=== PATIENT | female | born 1960 | race Hispanic/Latino ===

== ENCOUNTER 2016-08-16 15:24 | Emergency (ER) | payer MEDICAID ==
[2016-08-16 16:09] VITALS: BP 146/76; TEMP 98.9; BMI 49.1
[2016-08-16] MEDS ORDERED: Albuterol-Ipratrop 3 mg / 0.5 (3 ml) UD IH STA ×3 (16:38→16:39)
[2016-08-16] MEDS ORDERED: levoFLOXacin 750 MG TAB PO STA (17:41)
--- NOTE | 2016-08-16 17:45 | ED PDOC ---
Arrival/HPI - General Chief Complaint: Cough, Cold, Congestion Time Seen by Provider: 08/16/16 16:20 Historian: Patient - History of Present Illness Narrative History of Present Illness (Text): 08/16/16 17:41 55-year-old female with a history of smoking COPD and diabetes presents today with cough 4 days. Patient denies fevers or chills. Patient states she's been wheezing and her nebulizer stopped working. Patient states she's been taking Mucinex [id number] with slight improvement. Patient states she has a history of bronchitis regularly. Patient denies chest pain or shortness of breath at present time. Denies abdominal pain no nausea or vomiting. patient states she just needs antibiotics because she has been unable to get rid of the cough with [id number] medications. Past Medical History - Provider Review Nursing Documentation Reviewed: Yes - Travel History Have you recently traveled outside [place] w/in the past 3 mons?: No - Past History Past History: Non-Contributing - Infectious Disease Hx of Infectious Diseases: None - Tetanus Immunization Tetanus Immunization: Unknown - Reproductive Menopause: Yes - Past Medical History Past Medical History: Non-Contributing - Cardiac Hx Cardiac Disorders: Yes Hx Hypertension: Yes - Pulmonary Hx Pneumonia: Yes Other/Comment: smoker 1/2 pack / day - Neurological Hx Neurological Disorder: No - HEENT Hx HEENT Disorder: No - Renal Hx Renal Disorder: No - Endocrine/Metabolic Hx Diabetes Mellitus Type 2: Yes - Hematological/Oncological Hx Blood Disorders: No - Integumentary Hx Dermatological Disorder: No - Musculoskeletal/Rheumatological Hx Falls: No - Gastrointestinal Hx Diverticulitis: Yes Hx Gastroesophageal Reflux: Yes - Genitourinary/Gynecological Hx Incontinence: Yes (stress incontinece) Hx Urinary Tract Infection: Yes - Psychiatric Hx Anxiety: Yes Hx Bipolar Disorder: Yes Hx Depression: Yes Hx Substance Use: No - Past Surgical History Past Surgical History: Non-Contributing - Surgical History Hx Cardiac Catheterization: Yes Other/Comment: Colonoscopy. Endoscopy - Anesthesia Hx Anesthesia: Yes Hx Anesthesia Reactions: No Hx Malignant Hyperthermia: No - Suicidal Assessment Feels Threatened In Home Enviroment: No Family/Social History - Physician Review Nursing Documentation Reviewed: Yes Family/Social History: Unknown Family HX Smoking Status: Heavy Smoker > 10 Cigarettes Daily Hx Alcohol Use: No Hx Substance Use: No Hx Substance Use Treatment: No Allergies/Home Meds Allergies/Adverse Reactions: Allergies No Known Allergies Allergy (Verified 08/16/16 16:13) Home Medications: Home Meds Medication Instructions Recorded Confirmed Simvastatin [Zocor] 40 mg PO DAILY 09/27/11 10/29/15 Ziprasidone Hydrochloride [Geodon] 80 mg PO HS 09/27/11 10/29/15 Atorvastatin [Lipitor] 40 mg PO HS 11/26/14 10/29/15 Diltiazem Hydrochloride [Cardizem 360 mg PO DAILY 01/09/15 10/29/15 Cd] Enalapril Maleate [Enalapril] 10 mg PO DAILY 01/09/15 10/29/15 Review of Systems - Review of Systems Constitutional: absent: Fatigue, Fevers ENT: absent: Sore Throat, Sinus Congestion Respiratory: Cough, Wheezing. absent: SOB Cardiovascular: absent: Chest Pain, Palpitations Gastrointestinal: absent: Abdominal Pain, Nausea, Vomiting Neurological: absent: Headache, Dizziness Physical Exam Vital Signs Reviewed: Yes Vital Signs Temp Pulse Resp BP Pulse Ox 08/16/16 16:04 98.9 F 73 20 146/76 93 L Temperature: Afebrile Blood Pressure: Normal Pulse: Regular Respiratory Rate: Normal Appearance: Positive for: Well-Appearing, Non-Toxic, Comfortable Pain Distress: None Mental Status: Positive for: Alert and Oriented X 3 - Systems Exam Head: Present: Atraumatic Mouth: Present: Moist Mucous Membranes Neck: Present: Normal Range of Motion Respiratory/Chest: Present: Clear to Auscultation, Good Air Exchange, Wheezes ( wheezing bilaterally). No: Respiratory Distress, Accessory Muscle Use, Decreased Breath Sounds, Retracting Cardiovascular: Present: Regular Rate and Rhythm, Normal S1, S2. No: Murmurs Abdomen: No: Tenderness Neurological: Present: GCS=15 Skin: Present: Warm, Dry, Normal Color. No: Rashes Psychiatric: Present: Alert, Oriented x 3 Medical Decision Making ED Course and Treatment: 08/16/16 17:48 Patient is nontoxic well-appearing in no distress. Vital signs are stable. DuoNeb nebs 3 Prednisone by mouth Chest x-ray: No infiltrate or effusion reviewed by Dr. valdivia pt reassessment; pt feeling much better after medications;lungs cta bilaterally ; vitals stable. will d/c home with levaquin; advised f/u with pmd tomorrow. advised immediate return if symptoms worsen,persist or if new symptoms develop. Patient verbalizes understanding of discharge instructions and need for immediate followup. all aspects of this case were discussed the attending of record. IMPRESSION; bronchitis Levaquin daily 7 days Used nebulizer 3 times daily as needed for cough Increase fluids Followup with primary care physician tomorrow Return immediately if symptoms worsen persist or if new symptoms develop - RAD Interpretation Radiology Orders: 08/16/16 16:20 CHEST TWO VIEWS (PA/LAT) [RAD] Stat - Medication Orders Current Medication Orders: Discontinued Medications Albuterol/Ipratropium (Duoneb 3 Mg/0.5 Mg (3 Ml) Ud) 3 ml IH STAT STA Stop: 08/16/16 16:39 Last Admin: 08/16/16 16:40 Dose: 3 ML Albuterol/Ipratropium (Duoneb 3 Mg/0.5 Mg (3 Ml) Ud) 3 ml IH STAT STA Stop: 08/16/16 16:39 Last Admin: 08/16/16 17:08 Dose: 3 ML Albuterol/Ipratropium (Duoneb 3 Mg/0.5 Mg (3 Ml) Ud) 3 ml IH STAT STA Stop: 08/16/16 16:40 Last Admin: 08/16/16 17:19 Dose: 3 ML Disposition/Present on Arrival - Present on Arrival Any Indicators Present on Arrival: No History of DVT/PE: No History of Uncontrolled Diabetes: No Urinary Catheter: No History of Decub. Ulcer: No History Surgical Site Infection Following: None - Disposition Have Diagnosis and Disposition been Completed?: Yes Diagnosis: Bronchitis Disposition: HOME/ ROUTINE Disposition Time: 17:50 Patient Plan: Discharge Patient Problems: Current Active Problems Problem Status Diagnosed Bronchitis Acute Condition: GOOD Discharge Instructions (ExitCare): Acute Bronchitis (ED) Additional Instructions: Levaquin daily 7 days Used nebulizer 3 times daily as needed for cough Increase fluids Followup with primary care physician tomorrow Return immediately if symptoms worsen persist or if new symptoms develop Prescriptions: Albuterol HFA [Ventolin HFA 90 mcg/actuation (8 g)] 2 puff IH [id number] PRN #1 inhaler PRN Reason: Cough Albuterol 0.083% [Albuterol 0.083% Inhal Lauryn (2.5 mg/3 ml) UD] 1 vial IH TID PRN #1 packet PRN Reason: Cough Nebulizer [Compact Compressor Nebulizer] 1 dev XX PRN PRN #1 dev PRN Reason: Cough Levofloxacin [Levaquin] 750 mg PO DAILY #7 tablet predniSONE [predniSONE Tab] 3 tab PO DAILY #12 tab Forms: WORK NOTE
[2016-08-16 18:11] VITALS: PULSE 83; RESP 16; O2SAT 94
--- NOTE | 2016-08-17 09:06 | RAD ---
HISTORY: Cough COMPARISON: 10/03/2015 TECHNIQUE: Chest PA and lateral FINDINGS: LUNGS: The lungs are well inflated and clear. PLEURA: No significant pleural effusion identified. No pneumothorax apparent. CARDIOVASCULAR: Normal. OSSEOUS STRUCTURES: No significant abnormalities. VISUALIZED UPPER ABDOMEN: Normal. OTHER FINDINGS: None. IMPRESSION: No active pulmonary disease.
== END 2016-08-16 18:10 | disposition home or self-care (01) ==
LOC: ED 15:24
DX: J20.9 Acute bronchitis, unspecified (principal); F17.210 Nicotine dependence, cigarettes, uncomplicated

== ENCOUNTER 2016-08-16 22:57 | Emergency (ER) | payer MEDICAID ==
[2016-08-16 22:58] VITALS: BMI 49.1
[2016-08-16 23:16] VITALS: BP 144/80; TEMP 98.6
[2016-08-16] MEDS ORDERED: Sodium Chloride 0.9% 1,000 ML IV STA (23:24)
[2016-08-17 00:02] LABS: ADD MANUAL DIFF? NO
[2016-08-17 00:06] LABS: BASO # 0.01 K/mm3 (0.0-2.0); BASO % 0.1 % (0.0-3.0); EOS % 0.1 % (1.5-5.0); GRAN # 8.15 (1.4-6.5); GRAN % 91.5 % (50.0-68.0); HEMATOCRIT 38.2 % (36.0-48.0); LYMPH # 0.7 (1.2-3.4); LYMPH % 7.3 % (22.0-35.0); MEAN CORPUSCULAR HEMOGLOBIN 30.2 pg (25.0-35.0); MEAN CORPUSCULAR HGB CONC 35.1 g/dl (31.0-37.0); MEAN PLATELET VOLUME 9.9 fl (7.0-11.0); MONO # 0.1 (0.1-0.6); PLATELET COUNT 235 10^3/uL (120.0-450.0); RED CELL DISTRIBUTION WIDTH 13.7 % (11.5-14.5); URINE BILIRUBIN NEGATIVE (NEGATIVE); URINE BLOOD NEGATIVE (NEGATIVE); URINE GLUCOSE (UA) >=1000 mg/dL (NEGATIVE); URINE KETONE NEGATIVE (NEGATIVE); URINE LEUKOCYTE ESTERASE NEGATIVE Leu/uL (NEGATIVE); URINE PROTEIN NEGATIVE mg/dL (<30 mg/dL); URINE UROBILINOGEN 0.2 E.U./dL (<1 E.U./dL); WHITE BLOOD COUNT 8.9 10^3/ul (4.5-11.0)
[2016-08-17 00:08] LABS: URINE APPEARANCE CLEAR (CLEAR); URINE COLOR YELLOW (YELLOW)
[2016-08-17 00:19] LABS: ALB/GLOB RATIO 1.2 (1.1-1.8); ALKALINE PHOSPHATASE 100 U/L (38-133); ALT/SGPT 25 U/L (7-56); AST/SGOT 21 U/L (15-39); BILIRUBIN,TOTAL 0.6 mg/dL (0.2-1.3); BLOOD UREA NITROGEN 16 mg/dL (7-21); CALCIUM 9.5 mg/dL (8.4-10.5); CARBON DIOXIDE 25 mmol/L (21-33); CHLORIDE 97 mmol/L (95-110); GFR AFRICAN-AMERICAN > 60; POTASSIUM 5.1 mmol/L (3.6-5.0); SODIUM 131 mmol/L (132-148); TOTAL PROTEIN 7.5 g/dL (5.8-8.3)
[2016-08-17] MEDS: Albuterol-Ipratrop 3 mg / 0.5 (3 ml) UD IH SCH ×4 (00:19→01:09)
[2016-08-17 01:43] LABS: GLUCOSE,RANDOM 324 mg/dL (70-110)
--- NOTE | 2016-08-17 02:00 | ED PDOC ---
Arrival/HPI - General Chief Complaint: High Blood Sugar Time Seen by Provider: 08/16/16 23:23 Historian: Patient - History of Present Illness Narrative History of Present Illness (Text): 08/17/16 01:44 55-year-old female with a history of diabetes COPD and asthma presents today feeling worse than she did earlier. Patient states she was taking her sugars at home and it was high. Patient states she took her prescribed insulin dose but then ate and then the sugar remained high. Patient states she started wheezing again. She denies fevers at home. No chest pain. Patient complaining of productive cough. Denies sore throat. No abdominal pain. No vomiting or diarrhea. Patient states she just isn't feeling right and got nervous that her sugar was a little high and that they wanted her to stay in the hospital earlier today but she didn't want to. Past Medical History - Provider Review Nursing Documentation Reviewed: Yes - Travel History Have you recently traveled outside [place] w/in the past 3 mons?: No - Past History Past History: Non-Contributing - Infectious Disease Hx of Infectious Diseases: None - Tetanus Immunization Tetanus Immunization: Unknown - Past Medical History Past Medical History: Non-Contributing - Cardiac Hx Cardiac Disorders: Yes Hx Hypertension: Yes - Pulmonary Hx Pneumonia: Yes Other/Comment: smoker 1/2 pack / day - Neurological Hx Neurological Disorder: No - HEENT Hx HEENT Disorder: No - Renal Hx Renal Disorder: No - Endocrine/Metabolic Hx Diabetes Mellitus Type 2: Yes - Hematological/Oncological Hx Blood Disorders: No - Integumentary Hx Dermatological Disorder: No - Musculoskeletal/Rheumatological Hx Arthritis: Yes Hx Falls: No - Gastrointestinal Hx Diverticulitis: Yes Hx Gastroesophageal Reflux: Yes - Genitourinary/Gynecological Hx Incontinence: Yes (stress incontinece) Hx Urinary Tract Infection: Yes - Psychiatric Hx Anxiety: Yes Hx Bipolar Disorder: Yes Hx Depression: Yes Hx Substance Use: No - Past Surgical History Past Surgical History: Non-Contributing - Surgical History Hx Cardiac Catheterization: Yes Other/Comment: Colonoscopy. Endoscopy - Anesthesia Hx Anesthesia: Yes Hx Anesthesia Reactions: No Hx Malignant Hyperthermia: No - Suicidal Assessment Feels Threatened In Home Enviroment: No Family/Social History - Physician Review Nursing Documentation Reviewed: Yes Family/Social History: Unknown Family HX Smoking Status: Heavy Smoker > 10 Cigarettes Daily Hx Alcohol Use: No Hx Substance Use: No Hx Substance Use Treatment: No Allergies/Home Meds Allergies/Adverse Reactions: Allergies No Known Allergies Allergy (Verified 08/16/16 16:13) Home Medications: Home Meds Medication Instructions Recorded Confirmed Simvastatin [Zocor] 40 mg PO DAILY 09/27/11 10/29/15 Ziprasidone Hydrochloride [Geodon] 80 mg PO HS 09/27/11 10/29/15 Atorvastatin [Lipitor] 40 mg PO HS 11/26/14 10/29/15 Diltiazem Hydrochloride [Cardizem 360 mg PO DAILY 01/09/15 10/29/15 Cd] Enalapril Maleate [Enalapril] 10 mg PO DAILY 01/09/15 10/29/15 Review of Systems - Review of Systems Constitutional: Fevers. absent: Fatigue Respiratory: SOB, Cough, Wheezing Cardiovascular: absent: Chest Pain, Palpitations Gastrointestinal: absent: Abdominal Pain, Nausea, Vomiting Musculoskeletal: absent: Arthralgias, Back Pain, Neck Pain Skin: absent: Rash, Pruritis Neurological: absent: Headache, Dizziness Psychiatric: absent: Anxiety, Depression Physical Exam Vital Signs Reviewed: Yes Vital Signs Temp Pulse Resp BP Pulse Ox 08/16/16 23:14 98.6 F 84 18 144/80 94 L Temperature: Afebrile Blood Pressure: Normal Pulse: Regular Respiratory Rate: Normal Appearance: Positive for: Well-Appearing, Non-Toxic, Comfortable Pain Distress: None Mental Status: Positive for: Alert and Oriented X 3 Finger Stick Blood Glucose: 321 - Systems Exam Head: Present: Atraumatic Mouth: Present: Moist Mucous Membranes Neck: Present: Normal Range of Motion Respiratory/Chest: Present: Wheezes (Diffuse wheezing bilaterally). No: Clear to Auscultation, Tachypneic Cardiovascular: Present: Regular Rate and Rhythm Abdomen: No: Tenderness Neurological: Present: GCS=15 Skin: Present: Warm, Dry, Normal Color. No: Rashes Psychiatric: Present: Alert, Oriented x 3 Medical Decision Making ED Course and Treatment: 55-year-old diabetic female with COPD and asthma with diffuse wheezing bilaterally and elevated glucose. Seen in ER earlier today. Patient states she refused blood work earlier today but now is not feeling better. pt had 60mg prednisone earlier today as well as levaquin 750mg PO today. and 3 prior duonebs. CBC within normal limits CMP glucose 324 Normal saline IV bolus given 3 DuoNeb given Patient refused BiPAP Patient still with diffuse wheezing bilaterally. Oxygen saturation ranging from 92-94%. Patient states she took her 44 units of 70/30 Humalog prior to coming into the emergency room. pt states she doesnt want to be admitted to dr. quintero service. will admit to hospitalist. Case was discussed in depth with Dr. cueto and Dr. Gifford; accepts tele admission ; will admit to tele observational status for copd exacerbation and hyperglycemia impression; hyperglycemia, copd exacerbation admit tele obs - Lab Interpretations Lab Results: 08/16/16 23:55 08/16/16 23:55 Lab Results 08/16/16 23:55: WBC 8.9 D, RBC 4.44, Hgb 13.4, Hct 38.2, MCV 86.0, MCH 30.2, MCHC 35.1, RDW 13.7, Plt Count 235, MPV 9.9, Gran % 91.5 H, Lymph % (Auto) 7.3 L , Randall % (Auto) 1.0, Eos % (Auto) 0.1 L, Baso % (Auto) 0.1, Gran # 8.15 H, Lymph # 0.7 L, Randall # 0.1, Eos # 0.0, Baso # 0.01, Sodium 131 L, Potassium 5.1 H , Chloride 97, Carbon Dioxide 25, Anion Gap 14, BUN 16, Creatinine 0.8, Est GFR ( Amer) > 60, Est GFR (Non-Af Amer) > 60, Random Glucose 324 H* D, Calcium 9.5, Total Bilirubin 0.6, AST 21, ALT 25, Alkaline Phosphatase 100, Total Protein 7.5, Albumin 4.0, Globulin 3.5, Albumin/Globulin Ratio 1.2, Urine Color Yellow, Urine Appearance Clear, Urine pH 6.0, Ur Specific [place] 1.015, Urine Protein Negative, Urine Glucose (UA) >=1000, Urine Ketones Negative, Urine Blood Negative, Urine Nitrate Negative, Urine Bilirubin Negative, Urine Urobilinogen 0.2, Ur Leukocyte Esterase Negative - Medication Orders Current Medication Orders: Discontinued Medications Albuterol/Ipratropium (Duoneb 3 Mg/0.5 Mg (3 Ml) Ud) 3 ml IH Q15M HOA Stop: 08/17/16 00:46 Last Admin: 08/17/16 01:09 Dose: 3 ML Sodium Chloride (Sodium Chloride 0.9%) 1,000 mls @ 999 mls/hr IV .Q1H1M STA Stop: 08/17/16 00:24 Last Admin: 08/17/16 00:03 Dose: 999 MLS/HR eMAR Start Stop Document 08/17/16 00:03 [email or web address] (Rec: 08/17/16 00:03 [email or web address] [facility] ) Intravenous Solution Start Date 08/17/16 Start Time 00:03 End Date 08/17/16 Disposition/Present on Arrival - Present on Arrival Any Indicators Present on Arrival: No History of DVT/PE: No History of Uncontrolled Diabetes: No Urinary Catheter: No History of Decub. Ulcer: No History Surgical Site Infection Following: None - Disposition Have Diagnosis and Disposition been Completed?: Yes Diagnosis: COPD exacerbation, Hyperglycemia Disposition: HOSPITALIZED Disposition Time: 00:40 Patient Plan: Observation, Telemetry Patient Problems: Current Active Problems Problem Status Diagnosed COPD exacerbation Acute Condition: FAIR
[2016-08-17 02:29] VITALS: RESP 16; O2SAT 99
[2016-08-17 02:31] VITALS: PULSE 82
--- NOTE | 2016-08-17 03:07 | CP.PCM.HP ---
<Juan Gifford - Last Filed: 08/17/16 02:54> History of Present Illness - History of Present Illness History of Present Illness: Juan Gifford D.O. PGY-1, Internal Medicine Resident, Night Float Admission Note CC: shortness of breath, wheezing for 1 day 55 year old female with a PMH of recurrent bronchitis, COPD, previous episodes of pneumonia, and asthma who presents to [facility] ER on 08/16/16 and then again on 03/25 for complaints of shortness of breath and wheezing. Patient originally came and was discharged home on prednisone and levaquin after having received 3 treatments of duonebs and feeling better but returned when she was unable to maintain her blood sugars at home despite taking her usual insulin doses, up to the 300-400 range, and so she came in concerned. Patient was to be admitted to the hospital but when I arrived the patient stated that she wanted to leave AMA. The patient and I had a very lengthy discussion about her current condition. Patient stated that she had had these types of episodes multiple times in the past and was well equipped, specially after just now filling her prednisone and levaquin script, to deal with these issues at home. Patient also stated that she only returned because, when she called the ER about the glucose issue, they "scared her" but now she thinks she should have just treated herself at home. I discussed with her in great detail the multiple issues with this rationale, how she could leave her and have respiratory issues overnight that could have otherwise treated here with not only duonebs (which she quickly mentioned she had nebulizers at home) but with any necessary ventilatory support such as BIPAP, how she could a more serious infection despite right now feeling better that then could cause her to need intubation while not in the hospital, how her electrolytes at this time were not in the correct imbalance, in particular her sodium and her potassium, what this could mean, how it could lead to seizures or even a heart attack, how she is at risk for sepsis, how her blood sugars could run dangerously high and she could go into a hyperosmolar state, what a hyperosmolar state actually meant, how a multitude of other complications existed, including but not only the risk of needing cardiopulmonary resuscitation and even possible . Patient verbalized both the understanding of the risks and complications and her willingness to accept them and her continued desire to go home. Patient was educated on how to best take her medications, encouraged to see her PMD or return to the ER for ANY worsening symptoms or ANY concerns, and all of her questions were both welcomed and answered to her satisfaction. Patient signed out AMA. Present on Admission - Present on Admission Any Indicators Present on Admission: No Past Patient History - Infectious Disease Hx of Infectious Diseases: None - Tetanus Immunizations Tetanus Immunization: Unknown - Past Medical History & Family History Past Medical History?: Yes - Past Social History Smoking Status: Heavy Smoker > 10 Cigarettes Daily - CARDIAC Hx Cardiac Disorders: Yes Hx Hypertension: Yes - PULMONARY Hx Pneumonia: Yes Other/Comment: smoker 1/2 pack / day - NEUROLOGICAL Hx Neurological Disorder: No - HEENT Hx HEENT Problems: No - RENAL Hx Chronic Kidney Disease: No - ENDOCRINE/METABOLIC Hx Diabetes Mellitus Type 2: Yes - HEMATOLOGICAL/ONCOLOGICAL Hx Blood Disorders: No - INTEGUMENTARY Hx Dermatological Problems: No - MUSCULOSKELETAL/RHEUMATOLOGICAL Hx Arthritis: Yes Hx Falls: No - GASTROINTESTINAL Hx Diverticulitis: Yes Hx Gastroesophageal Reflux: Yes - GENITOURINARY/GYNECOLOGICAL Hx Incontinence: Yes (stress incontinece) Hx Urinary Tract Infection: Yes - PSYCHIATRIC Hx Anxiety: Yes Hx Bipolar Disorder: Yes Hx Depression: Yes Hx Substance Use: No - SURGICAL HISTORY Hx Cardiac Catheterization: Yes Other/Comment: Colonoscopy. Endoscopy - ANESTHESIA Hx Anesthesia: Yes Hx Anesthesia Reactions: No Hx Malignant Hyperthermia: No Meds Allergies/Adverse Reactions: Allergies Allergy/AdvReac Type Severity Reaction Status Date / Time No Known Allergies Allergy Verified 08/25/16 11:24 Results - Vital Signs Recent Vital Signs: Last Vital Signs Temp 98.6 F 08/17/16 02:30 Pulse 82 08/17/16 02:30 Resp 08/17/16 02:30 BP 144/80 08/16/16 23:14 Pulse Ox 99 08/17/16 02:30 - Labs Result Diagrams: 08/16/16 23:55 08/16/16 23:55 <Kar العراقي P - Last Filed: 08/29/16 20:14> Results - Vital Signs Recent Vital Signs: Last Vital Signs Temp 98.6 F 08/17/16 02:30 Pulse 82 08/17/16 02:30 Resp 16 08/17/16 02:30 BP 144/80 08/16/16 23:14 Pulse Ox 99 08/17/16 02:30 - Labs Result Diagrams: 08/16/16 23:55 08/16/16 23:55 Attending/Attestation - Attestation I have personally seen and examined this patient.: Yes I have fully participated in the care of the patient.: Yes I have reviewed all pertinent clinical information: Yes
== END 2016-08-17 02:31 | disposition short-term general hospital (02) ==
LOC: ED 22:57 → UNDOADMOB 08-17 00:40 → ERH 08-17 00:40
DX: J44.1 Chronic obstructive pulmonary disease with (acute) exacerbation (principal); F17.210 Nicotine dependence, cigarettes, uncomplicated; E11.65 Type 2 diabetes mellitus with hyperglycemia; Z79.4 Long term (current) use of insulin
CPT/HCPCS: 80053; 81003; 85025; 99285; J7040

== ENCOUNTER 2016-08-25 11:05 | Emergency (ER) | payer MEDICAID ==
[2016-08-25 11:21] VITALS: BMI 47.5
[2016-08-25 11:22] VITALS: TEMP 99.3; O2SAT 97
[2016-08-25] MEDS ORDERED: Oxycodone/Acetaminophen 5/325 mg Tab PO STA (11:28)
--- NOTE | 2016-08-25 11:30 | ED PDOC ---
Arrival/HPI - General Chief Complaint: Lower Extremity Problem/Injury Time Seen by Provider: 08/25/16 11:27 Historian: Patient - History of Present Illness Narrative History of Present Illness (Text): 08/25/16 11:29 This 55-year-old female with a history of smoking COPD and diabetes presents today c/o left foot pain since yesterday. Patient stated she tripped and fell , causing to twist her foot. Denies other complains. Time/Duration: Other (1 day) Quality: Aching Context: Home Past Medical History - Provider Review Nursing Documentation Reviewed: Yes - Past History Past History: Non-Contributing - Infectious Disease Hx of Infectious Diseases: None - Tetanus Immunization Tetanus Immunization: Unknown - Past Medical History Past Medical History: Non-Contributing - Cardiac Hx Cardiac Disorders: Yes Hx Hypertension: Yes - Pulmonary Hx Respiratory Disorders: Yes Hx Pneumonia: Yes - Neurological Hx Neurological Disorder: No - HEENT Hx HEENT Disorder: No - Renal Hx Renal Disorder: No - Endocrine/Metabolic Hx Endocrine Disorders: Yes Hx Diabetes Mellitus Type 2: Yes - Hematological/Oncological Hx Blood Disorders: No - Integumentary Hx Dermatological Disorder: No - Musculoskeletal/Rheumatological Hx Musculoskeletal Disorders: Yes Hx Arthritis: Yes Hx Falls: No - Gastrointestinal Hx Gastrointestinal Disorders: Yes Hx Diverticulitis: Yes Hx Gastroesophageal Reflux: Yes - Genitourinary/Gynecological Hx Genitourinary Disorders: Yes Hx Incontinence: Yes (stress incontinece) Hx Urinary Tract Infection: Yes - Psychiatric Hx Psychophysiologic Disorder: Yes Hx Anxiety: Yes Hx Bipolar Disorder: Yes Hx Depression: Yes Hx Substance Use: No - Past Surgical History Past Surgical History: Non-Contributing - Surgical History Hx Cardiac Catheterization: Yes Other/Comment: Colonoscopy. Endoscopy - Anesthesia Hx Anesthesia: Yes Hx Anesthesia Reactions: No Hx Malignant Hyperthermia: No - Suicidal Assessment Feels Threatened In Home Enviroment: No Family/Social History - Physician Review Nursing Documentation Reviewed: Yes Family/Social History: No Known Family HX Smoking Status: Heavy Smoker > 10 Cigarettes Daily Hx Alcohol Use: No Hx Substance Use: No Hx Substance Use Treatment: No Allergies/Home Meds Allergies/Adverse Reactions: Allergies No Known Allergies Allergy (Verified 08/25/16 11:24) Home Medications: Home Meds Medication Instructions Recorded Confirmed Enalapril Maleate [Enalapril] 10 mg PO DAILY 01/09/15 08/25/16 Insulin NPH Hum/Reg Insulin Hm 44 units SC BID 08/25/16 08/25/16 [Humulin 70-30 Vial] Pantoprazole Sodium [Protonix] 40 mg PO DAILY 08/25/16 08/25/16 [id number] CD [Cardizem CD] 340 mg PO DAILY 08/25/16 08/25/16 hydroCHLOROthiazide [Hydrodiuril] 25 mg PO DAILY 08/25/16 08/25/16 Review of Systems - Review of Systems Constitutional: Normal. absent: Fatigue, Weight Change, Fevers Eyes: Normal ENT: Normal Respiratory: Normal Cardiovascular: Normal Gastrointestinal: Normal Genitourinary Female: Normal Musculoskeletal: Other ((+) left foot pain) Skin: Normal Neurological: Normal Endocrine: Normal Hemo/Lymphatic: Normal Psychiatric: Normal Physical Exam Vital Signs Temp Pulse Resp BP Pulse Ox 08/25/16 13:00 79 18 158/86 H 97 08/25/16 11:21 99.3 F 87 16 97 Temperature: Afebrile Blood Pressure: Normal Pulse: Regular Respiratory Rate: Normal Appearance: Positive for: Well-Appearing, Non-Toxic, Comfortable Pain Distress: None Mental Status: Positive for: Alert and Oriented X 3 - Systems Exam Head: Present: Atraumatic, Normocephalic, Other (No raccoon sign. No winn signs) Pupils: Present: PERRL, Other (No hyphema) Extroacular Muscles: Present: EOMI. No: Entrapment Conjunctiva: Present: Normal Ears: Present: Normal, NORMAL TM, Normal Canal, Other (No hemotympanum). No: Erythema Mouth: Present: Moist Mucous Membranes. No: Drooling, Trismus, Normal Lips, Normal Tounge, Normal Teeth Neck: Present: Normal Range of Motion, Trachea Midline. No: Meningeal Signs, MIDLINE TENDERNESS, Paraspinal Tenderness Respiratory/Chest: Present: Clear to Auscultation, Good Air Exchange. No: Retracting, Rhonchi, Tender to Palpation Cardiovascular: Present: Regular Rate and Rhythm, Normal S1, S2. No: Murmurs Abdomen: No: Tenderness Back: Present: Normal Inspection. No: CVA Tenderness Upper Extremity: Present: Normal Inspection, Normal ROM, NORMAL PULSES, Neurovascularly Intact, Capillary Refill < 2s Lower Extremity: Present: Normal Inspection, NORMAL PULSES, Normal ROM, Tenderness (Mild tenderness over left dorsal foot. No swelling, erythema, ecchymosis, or skin lesion. No ankle tenderness, no knee tenderness, no hip tenderness), Neurovascularly Intact, Capillary Refill < 2 s. No: CALF TENDERNESS Neurological: Present: GCS=15, CN II-XII Intact, Speech Normal, Motor Func Grossly Intact, Normal Sensory Function, Normal Cerebellar Funct, Gait Normal Skin: Present: Warm, Dry, Normal Color. No: Rashes Psychiatric: Present: Alert, Oriented x 3 Medical Decision Making ED Course and Treatment: 08/25/16 12:46 Re-evaluation. Patient feels better. Discussed results and plan with patient who expresses understanding. All questions answered and there is agreement with the plan to discharge home with instructions. Patient stable for discharge. Return if symptoms persist or worsen. Patient came c/o left foot pain after twisting. Physical exam was unremarkable , except for tenderness lateral aspect of dorsal left foot. No swelling, ecchymosis, or erythema. Foot x-rays was negative for acute Fx. Cane, and millie bandage were ordered, and patient recommended to see PMD in 1-2 days for revaluation. Patient understood to remove millie bandage at bedtime, and to return to ED if pain worsen or persist. Re-evaluation Time: 12:50 Reassessment Condition: Re-examined, Improved - RAD Interpretation Narrative RAD Interpretations (Text): 08/25/16 12:46 Accession No. : [id number] Patient Name / ID : TONIO TRIVEDI / [id number] Exam Date : 08/25/2016 11:59:24 ( Approved ) Study Comment : Sex / Age : F / 55Y Creator : Sully Sheikh V. Dictator : Sully Sheikh V. Lvn : Mine Captain : Sully Sheikh V. Approver2 : Report Date : 08/25/2016 12:34:39 My Comment : PROCEDURE: Left Foot Radiographs. HISTORY: pain s/p trauma COMPARISON: None. FINDINGS: BONES: No fracture. Dorsal midfoot osseous hypertrophy. Prominent inferior calcaneal spur. Tiny posterior calcaneal spur - blending Achilles insertional enthesophyte JOINTS: Dorsal midfoot osseous hypertrophic changes -navicular medial cuneiform level. And medial cuneiform - 1st metatarsal base SOFT TISSUES: Dorsal midfoot and hindfoot mostly medial soft tissue swelling. OTHER FINDINGS: Tiny with 1 x 2 mm ossification bordering the 5th metatarsal base. A tiny ossification center here or in old osseous avulsion injury are considerations. No particular soft tissue swelling here suggested IMPRESSION: Soft tissue swelling without fracture apparent. Dorsal midfoot osseous hypertrophic changes -navicular medial cuneiform level. And medial cuneiform - 1st metatarsal base Inferior calcaneal spur and tiny blending Achilles tendon insertional enthesophyte Radiology Orders: 08/25/16 11:28 FOOT LEFT 3 VIEWS ROUTINE [RAD] Stat - Medication Orders Current Medication Orders: Discontinued Medications Oxycodone/Acetaminophen (Percocet 5/325 Mg Tab) 1 tab PO STAT STA Stop: 08/25/16 11:29 Last Admin: 08/25/16 12:38 Dose: 1 TAB Disposition/Present on Arrival - Present on Arrival Any Indicators Present on Arrival: No History of DVT/PE: No History of Uncontrolled Diabetes: No Urinary Catheter: No History of Decub. Ulcer: No History Surgical Site Infection Following: None - Disposition Have Diagnosis and Disposition been Completed?: Yes Diagnosis: Foot pain Disposition: HOME/ ROUTINE Disposition Time: 12:51 Patient Plan: Discharge Condition: GOOD Discharge Instructions (ExitCare): Foot Sprain (ED) Additional Instructions: Call Dr. Mancera for further medical evaluation and pain control in 1-2 days. Use can, and millie bandage during the day. Remove millie bandage at bedtime. Keep leg elevated, and rest. Call foot doctor for revaluation. Referrals: Zana Mancera MD [Staff Provider] - Follow up with primary Jessica Ricks DPM [Staff Provider] - Follow up with primary Forms: WORK NOTE
--- NOTE | 2016-08-25 12:36 | RAD ---
PROCEDURE: Left Foot Radiographs. HISTORY: pain s/p trauma COMPARISON: None. FINDINGS: BONES: No fracture. Dorsal midfoot osseous hypertrophy. Prominent inferior calcaneal spur. Tiny posterior calcaneal spur - blending Achilles insertional enthesophyte JOINTS: Dorsal midfoot osseous hypertrophic changes -navicular medial cuneiform level. And medial cuneiform - 1st metatarsal base SOFT TISSUES: Dorsal midfoot and hindfoot mostly medial soft tissue swelling. OTHER FINDINGS: Tiny with 1 x 2 mm ossification bordering the 5th metatarsal base. A tiny ossification center here or in old osseous avulsion injury are considerations. No particular soft tissue swelling here suggested IMPRESSION: Soft tissue swelling without fracture apparent. Dorsal midfoot osseous hypertrophic changes -navicular medial cuneiform level. And medial cuneiform - 1st metatarsal base Inferior calcaneal spur and tiny blending Achilles tendon insertional enthesophyte
[2016-08-25 13:05] VITALS: BP 158/86; PULSE 79; RESP 18
== END 2016-08-25 13:21 | disposition home or self-care (01) ==
LOC: ED 11:05
DX: M79.672 Pain in left foot (principal); F17.210 Nicotine dependence, cigarettes, uncomplicated; E11.9 Type 2 diabetes mellitus without complications; I10 Essential (primary) hypertension; Z87.891 Personal history of nicotine dependence

== ENCOUNTER 2016-09-13 14:54 | Emergency (ER) | payer MEDICAID, OTHER ==
[2016-09-13 14:54] VITALS: BMI 47.5
[2016-09-13 15:33] VITALS: TEMP 98.2; O2SAT 96
--- NOTE | 2016-09-13 17:12 | ED PDOC ---
Arrival/HPI - General Historian: Patient - History of Present Illness Time/Duration: 1 week Symptom Onset: Gradual Symptom Course: Unchanged Quality: Aching Severity Level: 4 - General Chief Complaint: Lower Extremity Problem/Injury Time Seen by Provider: 09/13/16 16:34 - History of Present Illness Narrative History of Present Illness (Text): 09/13/16 17:10 55-year-old female with a history of hypertension presents today with a one- week history of worsening bilateral leg swelling. Patient states she has a history of lower leg edema and takes hydrochlorothiazide but states she has not taken her medications in the past few days. Patient states about a week ago she got a pedicure and got a massage to the calves during the pedicure and since then she has been having pain and swelling to the legs bilaterally. She denies fevers or chills. No chest pain or shortness of breath. Denies numbness weakness or tingling in the extremities. Denies cough. (Kenyatta Payne) Past Medical History - Provider Review Nursing Documentation Reviewed: Yes - Travel History Have you recently traveled outside [place] w/in the past 3 mons?: No - Past History Past History: Non-Contributing - Infectious Disease Hx of Infectious Diseases: None - Tetanus Immunization Tetanus Immunization: Unknown - Reproductive Menopause: Yes - Past Medical History Past Medical History: Non-Contributing - Cardiac Hx Cardiac Disorders: Yes Hx Hypertension: Yes - Pulmonary Hx Respiratory Disorders: Yes Hx Pneumonia: Yes - Neurological Hx Neurological Disorder: No - HEENT Hx HEENT Disorder: No - Renal Hx Renal Disorder: No - Endocrine/Metabolic Hx Endocrine Disorders: Yes Hx Diabetes Mellitus Type 2: Yes - Hematological/Oncological Hx Blood Disorders: No - Integumentary Hx Dermatological Disorder: No - Musculoskeletal/Rheumatological Hx Musculoskeletal Disorders: Yes Hx Arthritis: Yes - Gastrointestinal Hx Gastrointestinal Disorders: Yes Hx Diverticulitis: Yes Hx Gastroesophageal Reflux: Yes - Genitourinary/Gynecological Hx Genitourinary Disorders: Yes Hx Incontinence: Yes (stress incontinece) Hx Urinary Tract Infection: Yes - Psychiatric Hx Psychophysiologic Disorder: Yes Hx Anxiety: Yes Hx Bipolar Disorder: Yes Hx Depression: Yes Hx Substance Use: No - Past Surgical History Past Surgical History: Non-Contributing - Surgical History Hx Cardiac Catheterization: Yes Other/Comment: Colonoscopy. Endoscopy - Anesthesia Hx Anesthesia: Yes Hx Anesthesia Reactions: No Hx Malignant Hyperthermia: No - Suicidal Assessment Feels Threatened In Home Enviroment: No Family/Social History - Physician Review Nursing Documentation Reviewed: Yes Family/Social History: Unknown Family HX Smoking Status: Heavy Smoker > 10 Cigarettes Daily Hx Alcohol Use: No Hx Substance Use: No Hx Substance Use Treatment: No Allergies/Home Meds Allergies/Adverse Reactions: Allergies No Known Allergies Allergy (Verified 08/25/16 11:24) Home Medications: Home Meds Medication Instructions Recorded Confirmed Enalapril Maleate [Enalapril] 10 mg PO DAILY 01/09/15 09/13/16 Insulin NPH Hum/Reg Insulin Hm 44 units SC BID 08/25/16 09/13/16 [Humulin 70-30 Vial] Pantoprazole Sodium [Protonix] 40 mg PO DAILY 08/25/16 09/13/16 [id number] CD [Cardizem CD] 340 mg PO DAILY 08/25/16 09/13/16 hydroCHLOROthiazide [Hydrodiuril] 25 mg PO DAILY 08/25/16 09/13/16 Review of Systems - Review of Systems Constitutional: absent: Fatigue, Fevers Respiratory: absent: SOB, Cough Cardiovascular: absent: Chest Pain, Palpitations Gastrointestinal: absent: Abdominal Pain, Nausea, Vomiting Genitourinary Female: absent: Dysuria Musculoskeletal: Arthralgias. absent: Back Pain, Neck Pain Skin: absent: Rash, Pruritis Neurological: absent: Headache, Dizziness Psychiatric: absent: Anxiety, Depression Physical Exam Vital Signs Reviewed: Yes Temperature: Afebrile Blood Pressure: Normal Pulse: Regular Respiratory Rate: Normal Appearance: Positive for: Well-Appearing, Non-Toxic, Comfortable Pain Distress: None Mental Status: Positive for: Alert and Oriented X 3 - Systems Exam Head: Present: Atraumatic Mouth: Present: Moist Mucous Membranes Neck: Present: Normal Range of Motion Respiratory/Chest: Present: Clear to Auscultation, Good Air Exchange. No: Respiratory Distress, Accessory Muscle Use Cardiovascular: Present: Regular Rate and Rhythm, Normal S1, S2. No: Murmurs Abdomen: No: Tenderness Lower Extremity: Present: Edema (1+ pitting edema bilaterally), CALF TENDERNESS , Normal ROM Neurological: Present: GCS=15, Speech Normal Skin: Present: Warm, Dry, Normal Color. No: Rashes Psychiatric: Present: Alert, Oriented x 3 Vital Signs Temp Pulse Resp BP Pulse Ox 09/13/16 17:00 79 18 122/75 96 09/13/16 15:33 98.2 F 86 16 124/77 96 Medical Decision Making ED Course and Treatment: I was available for consultation during PA evaluation. The chart reviewed by me , and I agree with disposition. The documented history was done by the physician narcotics detective. The documented physical exam was done by the physician narcotics detective. The documented procedures were done by the physician narcotics detective. (Buck Ball) 09/13/16 17:11 55-year-old diabetic female, positive smoker. With a one-week history of bilateral leg pain and swelling CBC wnl CMP: glucose; 159 BNP wnl Chest x-ray; no infiltrate, effusion Venous duplex of the bilateral lower extremities: no dvt verbal report from [employer] Patient reassessment: pt non toxic well appearing; no distress; all results discussed with patient; pt advised to f/u with pmd. return if symptoms worsen, persist or if new symptoms develop. Impression: Leg swelling Take your medications as prescribed Follow-up with primary care physician within the next 2 days Return if symptoms worsen persist or if new concerning symptoms develop 09/13/16 19:04 (Kenyatta Payne) - Lab Interpretations Lab Results: 09/13/16 18:00 09/13/16 18:00 Lab Results 09/13/16 18:00: WBC 6.3 D, RBC 4.35, Hgb 13.0, Hct 37.7, MCV 86.7, MCH 29.9, MCHC 34.5, RDW 13.4, Plt Count 226, MPV 9.5, Gran % 55.3, Lymph % (Auto) 37.3 H , [place] % (Auto) 4.6, Eos % (Auto) 2.5, Baso % (Auto) 0.3, Gran # 3.50, Lymph # 2.4, [place] # 0.3, Eos # 0.2, Baso # 0.02 09/13/16 18:00: Sodium 138, Potassium 3.9, Chloride 100, Carbon Dioxide 30, Anion Gap 12, BUN 13, Creatinine 0.7, Est GFR ( Amer) > 60, Est GFR (Non- Af Amer) > 60, Random Glucose 159 H, Calcium 9.0, Total Bilirubin 0.4, AST 19, ALT 28, Alkaline Phosphatase 81, NT-Pro-B Natriuret Pep 142, Total Protein 6.6, Albumin 3.6, Globulin 3.0, Albumin/Globulin Ratio 1.2 - RAD Interpretation Radiology Orders: 09/13/16 16:34 DUPLEX LOWER EXTRM VEIN BILAT [US] Stat 09/13/16 17:08 CHEST ONE VIEW [RAD] Stat Disposition/Present on Arrival - Present on Arrival Any Indicators Present on Arrival: No History of DVT/PE: No History of Uncontrolled Diabetes: No Urinary Catheter: No History of Decub. Ulcer: No History Surgical Site Infection Following: None - Disposition Have Diagnosis and Disposition been Completed?: Yes Disposition Time: 19:06 Patient Plan: Discharge - Disposition Diagnosis: Bilateral leg edema Disposition: HOME/ ROUTINE Condition: GOOD Additional Instructions: Take your medications as prescribed Follow-up with primary care physician within the next 2 days Return if symptoms worsen persist or if new concerning symptoms develop Referrals: Star Le MD [Primary Care Provider] - Follow up with primary
[2016-09-13 17:19] VITALS: BP 122/75; PULSE 79; RESP 18
[2016-09-13 18:19] LABS: ADD MANUAL DIFF? NO
[2016-09-13 18:31] LABS: BASO # 0.02 K/mm3 (0.0-2.0); BASO % 0.3 % (0.0-3.0); EOS # 0.2 (0.0-0.7); EOS % 2.5 % (1.5-5.0); GRAN % 55.3 % (50.0-68.0); HEMATOCRIT 37.7 % (36.0-48.0); LYMPH # 2.4 (1.2-3.4); LYMPH % 37.3 % (22.0-35.0); MEAN CELL VOLUME 86.7 fL (80.0-105.0); MEAN CORPUSCULAR HEMOGLOBIN 29.9 pg (25.0-35.0); MEAN CORPUSCULAR HGB CONC 34.5 g/dl (31.0-37.0); MEAN PLATELET VOLUME 9.5 fl (7.0-11.0); MONO # 0.3 (0.1-0.6); MONO % 4.6 % (1.0-6.0); PLATELET COUNT 226 10^3/uL (120.0-450.0); RED CELL DISTRIBUTION WIDTH 13.4 % (11.5-14.5); WHITE BLOOD COUNT 6.3 10^3/ul (4.5-11.0)
[2016-09-13 18:39] LABS: ALB/GLOB RATIO 1.2 (1.1-1.8); ALKALINE PHOSPHATASE 81 U/L (38-133); ALT/SGPT 28 U/L (7-56); AST/SGOT 19 U/L (15-39); BILIRUBIN,TOTAL 0.4 mg/dL (0.2-1.3); BLOOD UREA NITROGEN 13 mg/dL (7-21); CARBON DIOXIDE 30 mmol/L (21-33); CHLORIDE 100 mmol/L (98-107); GFR AFRICAN-AMERICAN > 60; GLUCOSE,RANDOM 159 mg/dL (70-110); POTASSIUM 3.9 mmol/L (3.6-5.0); SODIUM 138 mmol/L (132-148); TOTAL PROTEIN 6.6 g/dL (5.8-8.3)
--- NOTE | 2016-09-14 07:53 | RAD ---
PROCEDURE: CHEST RADIOGRAPH, 1 VIEW HISTORY: leg swelling COMPARISON: Comparison is made to 08/16/2016 FINDINGS: LUNGS: No evidence of new infiltrate or consolidation in the lungs. PLEURA: No pneumothorax or pleural fluid seen. CARDIOVASCULAR: The cardiac silhouette and the mediastinal are prominent in size. OSSEOUS STRUCTURES: No significant abnormalities. VISUALIZED UPPER ABDOMEN: Normal. OTHER FINDINGS: None. IMPRESSION: No significant interval change since the previous study noted.
--- NOTE | 2016-09-14 09:44 | US ---
HISTORY: Leg pain and swelling. Evaluate for DVT PHYSICIAN(S): Aric Nielsen MD. TECHNIQUE: Duplex sonography and color-flow Doppler with graded compression were used to evaluate the deep venous systems of both lower extremities. The exam is very limited by body habitus and edema. FINDINGS: The visualized deep venous systems of both lower extremities are sonographically normal and compressible. Normal wave forms and augmentation are seen. There is no sonographic evidence for deep venous thrombosis in the visualized segments of both lower extremities. IMPRESSION: No sonographic evidence for deep venous thrombosis in the visualized segments of both lower extremities. Very limited study
== END 2016-09-13 19:21 | disposition home or self-care (01) ==
LOC: ED 14:54
DX: R60.9 Edema, unspecified (principal); I10 Essential (primary) hypertension; F17.210 Nicotine dependence, cigarettes, uncomplicated

== ENCOUNTER 2016-09-20 16:02 | Emergency (ER) | payer OTHER ==
[2016-09-20 16:03] VITALS: BMI 47.5
[2016-09-20 16:41] VITALS: BP 145/87; PULSE 97; RESP 18; O2SAT 96
[2016-09-20 16:44] VITALS: TEMP 98.1
[2016-09-20] MEDS ORDERED: Oxycodone/Acetaminophen 5/325 mg Tab PO STA (16:57)
--- NOTE | 2016-09-20 17:00 | ED PDOC ---
Arrival/HPI - General Chief Complaint: Lower Extremity Problem/Injury Time Seen by Provider: 09/20/16 16:56 Historian: Patient - History of Present Illness Narrative History of Present Illness (Text): 09/20/16 17:09 55yo female with PMHx of hypertension, Diabetes present with complaint of leg pain that is localized to the rash located on her left lower leg x days. States she noticed the rash after wearing a compression stocking for her chronic LE edema. States the area felt warm to touch and she is worried of infection. She denies fever, chills, any other complaint. Past Medical History - Provider Review Nursing Documentation Reviewed: Yes - Past History Past History: Non-Contributing - Infectious Disease Hx of Infectious Diseases: None - Tetanus Immunization Tetanus Immunization: Unknown - Past Medical History Past Medical History: Non-Contributing - Cardiac Hx Cardiac Disorders: Yes Hx Hypertension: Yes - Pulmonary Hx Respiratory Disorders: Yes Hx Pneumonia: Yes - Neurological Hx Neurological Disorder: No - HEENT Hx HEENT Disorder: No - Renal Hx Renal Disorder: No - Endocrine/Metabolic Hx Endocrine Disorders: Yes Hx Diabetes Mellitus Type 2: Yes - Hematological/Oncological Hx Blood Disorders: No - Integumentary Hx Dermatological Disorder: No - Musculoskeletal/Rheumatological Hx Musculoskeletal Disorders: Yes Hx Arthritis: Yes - Gastrointestinal Hx Gastrointestinal Disorders: Yes Hx Colitis: Yes Hx Diverticulitis: Yes Hx Gastroesophageal Reflux: Yes - Genitourinary/Gynecological Hx Genitourinary Disorders: Yes Hx Incontinence: Yes (stress incontinece) Hx Urinary Tract Infection: Yes - Psychiatric Hx Psychophysiologic Disorder: Yes Hx Anxiety: Yes Hx Bipolar Disorder: Yes Hx Depression: Yes Hx Substance Use: No - Past Surgical History Past Surgical History: Non-Contributing - Surgical History Hx Cardiac Catheterization: Yes Other/Comment: Colonoscopy. Endoscopy - Anesthesia Hx Anesthesia: Yes Hx Anesthesia Reactions: No Hx Malignant Hyperthermia: No - Suicidal Assessment Feels Threatened In Home Enviroment: No Family/Social History - Physician Review Nursing Documentation Reviewed: Yes Family/Social History: Unknown Family HX Smoking Status: Heavy Smoker > 10 Cigarettes Daily Hx Alcohol Use: No Hx Substance Use: No Hx Substance Use Treatment: No Allergies/Home Meds Allergies/Adverse Reactions: Allergies No Known Allergies Allergy (Verified 09/20/16 16:37) Home Medications: Home Meds Medication Instructions Recorded Confirmed Enalapril Maleate [Enalapril] 10 mg PO DAILY 01/09/15 09/20/16 Insulin NPH Hum/Reg Insulin Hm 44 units SC BID 08/25/16 09/20/16 [Humulin 70-30 Vial] Pantoprazole Sodium [Protonix] 40 mg PO DAILY 08/25/16 09/20/16 [id number] CD [Cardizem CD] 340 mg PO DAILY 08/25/16 09/20/16 hydroCHLOROthiazide [Hydrodiuril] 25 mg PO DAILY 08/25/16 09/20/16 Review of Systems - Physician Review All systems were reviewed & negative as marked: Yes - Review of Systems Constitutional: Normal Eyes: Normal ENT: Normal Respiratory: Normal Cardiovascular: Normal Gastrointestinal: Normal Genitourinary Female: Normal Musculoskeletal: Normal Skin: Rash, Cellulitis, Other (LEft leg pain) Neurological: Normal Endocrine: Normal Hemo/Lymphatic: Normal Psychiatric: Normal Physical Exam Vital Signs Reviewed: Yes Vital Signs Temp Pulse Resp BP Pulse Ox 09/20/16 16:40 98.1 F 97 H 18 145/87 96 Temperature: Afebrile Blood Pressure: Normal Pulse: Regular Respiratory Rate: Normal Appearance: Positive for: Well-Appearing, Non-Toxic, Comfortable Pain Distress: None Mental Status: Positive for: Alert and Oriented X 3 - Systems Exam Head: Present: Atraumatic, Normocephalic Pupils: Present: PERRL Extroacular Muscles: Present: EOMI Conjunctiva: Present: Normal Mouth: Present: Moist Mucous Membranes Neck: Present: Normal Range of Motion Respiratory/Chest: Present: Clear to Auscultation, Good Air Exchange. No: Respiratory Distress, Accessory Muscle Use Cardiovascular: Present: Regular Rate and Rhythm, Normal S1, S2. No: Murmurs Abdomen: Present: Normal Bowel Sounds. No: Tenderness, Distention, Peritoneal Signs Back: Present: Normal Inspection Upper Extremity: Present: Normal Inspection. No: Cyanosis, Edema Lower Extremity: Present: Edema (2+), NORMAL PULSES, Normal ROM, Erythema ( Localized papular rash noted on erythematous base on proximal left medial lower leg). No: CALF TENDERNESS, Cyanosis, Tenderness, Swelling, Temperature Abnormalties, Neurovascularly Intact Neurological: Present: GCS=15, CN II-XII Intact, Speech Normal Skin: Present: Warm, Dry, Normal Color, Erythematous (Papular rash noted on erythematous base on proximal left medial lower leg). No: Rashes Psychiatric: Present: Alert, Oriented x 3, Normal Insight, Normal Concentration Medical Decision Making ED Course and Treatment: 09/20/16 17:23 Pt in ED for states history. She was aferbile and hemodynamically stable. She was tr and DC home with oral abx. she requested PErcocet, showing some drug seeking behavior. she was however given Tramdol and referred to her PMD. She was seen here recently and Doppler US was negative for DVT. - Medication Orders Current Medication Orders: Discontinued Medications Cephalexin Monohydrate (Keflex) 500 mg PO STAT STA PRN Reason: Protocol Stop: 09/20/16 16:58 Last Admin: 09/20/16 17:07 Dose: 500 mg Oxycodone/Acetaminophen (Percocet 5/325 Mg Tab) 1 tab PO STAT STA Stop: 09/20/16 16:58 Last Admin: 09/20/16 17:08 Dose: 1 tab Disposition/Present on Arrival - Present on Arrival Any Indicators Present on Arrival: No History of DVT/PE: No History of Uncontrolled Diabetes: No Urinary Catheter: No History of Decub. Ulcer: No History Surgical Site Infection Following: None - Disposition Have Diagnosis and Disposition been Completed?: Yes Diagnosis: Cellulitis Disposition: HOME/ ROUTINE Disposition Time: 17:00 Patient Plan: Discharge Condition: STABLE Discharge Instructions (ExitCare): Cellulitis (ED) Additional Instructions: Follow up with your Doctor Return to ED for any new or worsening symptoms Prescriptions: Cephalexin [cephalexin] 500 mg PO QID #28 cap traMADol [Ultram] 50 mg PO TID #7 tab Referrals: Star Le MD [Primary Care Provider] - Follow up with primary
== END 2016-09-20 17:20 | disposition home or self-care (01) ==
LOC: ED 16:02
DX: L03.116 Cellulitis of left lower limb (principal); E11.9 Type 2 diabetes mellitus without complications; I10 Essential (primary) hypertension

== ENCOUNTER 2016-09-22 12:37 | Emergency (ER) | payer OTHER ==
[2016-09-22 12:38] VITALS: BMI 47.5
[2016-09-22 12:48] VITALS: TEMP 98.9; O2SAT 95
--- NOTE | 2016-09-22 14:40 | ED PDOC ---
Arrival/HPI - General Chief Complaint: Lower Extremity Problem/Injury Time Seen by Provider: 09/22/16 14:08 Historian: Patient - History of Present Illness Narrative History of Present Illness (Text): 09/22/16 14:35 55yo female with PMHx of hypertension and Diabetes who present with complaint of localized rash to her left lower leg and pain to the area. Patient was seen here on 09/13/16 and 09/20/16 for same complaint. Lab and Doppler US was both negative on her first visit. She was placed on antibiotics on her second visit. she came back today for persistent pain. Requesting Percocet. she requested Percocet prescription at her last visit and it was not given. she came back to ED requesting Percocet. Denies chest pain, SOB, diaphoresis, recent travel, fever, chills, any other complaint. Past Medical History - Provider Review Nursing Documentation Reviewed: Yes - Past History Past History: Non-Contributing - Infectious Disease Hx of Infectious Diseases: None - Tetanus Immunization Tetanus Immunization: Unknown - Past Medical History Past Medical History: Non-Contributing - Cardiac Hx Cardiac Disorders: Yes Hx Hypertension: Yes - Pulmonary Hx Respiratory Disorders: Yes Hx Pneumonia: Yes - Neurological Hx Neurological Disorder: No - HEENT Hx HEENT Disorder: No - Renal Hx Renal Disorder: No - Endocrine/Metabolic Hx Endocrine Disorders: Yes Hx Diabetes Mellitus Type 2: Yes - Hematological/Oncological Hx Blood Disorders: No - Integumentary Hx Dermatological Disorder: No - Musculoskeletal/Rheumatological Hx Musculoskeletal Disorders: Yes Hx Arthritis: Yes - Gastrointestinal Hx Gastrointestinal Disorders: Yes Hx Colitis: Yes Hx Diverticulitis: Yes Hx Gastroesophageal Reflux: Yes - Genitourinary/Gynecological Hx Genitourinary Disorders: Yes Hx Incontinence: Yes (stress incontinece) Hx Urinary Tract Infection: Yes - Psychiatric Hx Psychophysiologic Disorder: Yes Hx Anxiety: Yes Hx Bipolar Disorder: Yes Hx Depression: Yes Hx Substance Use: No - Past Surgical History Past Surgical History: Non-Contributing - Surgical History Hx Cardiac Catheterization: Yes Other/Comment: Colonoscopy. Endoscopy - Anesthesia Hx Anesthesia: Yes Hx Anesthesia Reactions: No Hx Malignant Hyperthermia: No - Suicidal Assessment Feels Threatened In Home Enviroment: No Family/Social History - Physician Review Nursing Documentation Reviewed: Yes Family/Social History: Unknown Family HX Smoking Status: Heavy Smoker > 10 Cigarettes Daily Hx Alcohol Use: No Hx Substance Use: No Hx Substance Use Treatment: No Allergies/Home Meds Allergies/Adverse Reactions: Allergies No Known Allergies Allergy (Verified 09/22/16 12:44) Home Medications: Home Meds Medication Instructions Recorded Confirmed Enalapril Maleate [Enalapril] 10 mg PO DAILY 01/09/15 09/22/16 Insulin NPH Hum/Reg Insulin Hm 44 units SC BID 08/25/16 09/22/16 [Humulin 70-30 Vial] Pantoprazole Sodium [Protonix] 40 mg PO DAILY 08/25/16 09/22/16 [id number] CD [Cardizem CD] 340 mg PO DAILY 08/25/16 09/22/16 hydroCHLOROthiazide [Hydrodiuril] 25 mg PO DAILY 08/25/16 09/22/16 Insulin Detemir [Levemir] 0 units SC HS 09/22/16 09/22/16 traMADol [Ultram] 50 mg PO TID PRN 09/22/16 09/22/16 Review of Systems - Physician Review All systems were reviewed & negative as marked: Yes - Review of Systems Constitutional: Normal Eyes: Normal ENT: Normal Respiratory: Normal Cardiovascular: Normal Gastrointestinal: Normal Genitourinary Female: Normal Musculoskeletal: Arthralgias (Left leg pain) Skin: Normal Neurological: Normal Endocrine: Normal Hemo/Lymphatic: Normal Psychiatric: Normal Physical Exam Vital Signs Reviewed: Yes Vital Signs Temp Pulse Resp BP Pulse Ox 09/22/16 15:34 79 18 135/79 95 09/22/16 12:44 98.9 F 88 16 139/81 95 Temperature: Afebrile Blood Pressure: Normal Pulse: Regular Respiratory Rate: Normal Appearance: Positive for: Well-Appearing, Non-Toxic, Comfortable, Other ( Morbidly obese) Pain Distress: None Mental Status: Positive for: Alert and Oriented X 3 - Systems Exam Head: Present: Atraumatic, Normocephalic Pupils: Present: PERRL Extroacular Muscles: Present: EOMI Conjunctiva: Present: Normal Mouth: Present: Moist Mucous Membranes Neck: Present: Normal Range of Motion Respiratory/Chest: Present: Clear to Auscultation, Good Air Exchange. No: Respiratory Distress, Accessory Muscle Use Cardiovascular: Present: Regular Rate and Rhythm, Normal S1, S2. No: Murmurs Abdomen: Present: Normal Bowel Sounds. No: Tenderness, Distention, Peritoneal Signs Back: Present: Normal Inspection Upper Extremity: Present: Normal Inspection. No: Cyanosis, Edema Lower Extremity: Present: Normal Inspection, Edema (+2 to left lower leg), NORMAL PULSES, Normal ROM, Erythema (cluster of erythematous papular rash to left lower anterior distal leg), Neurovascularly Intact. No: CALF TENDERNESS, Tenderness, Temperature Abnormalties Neurological: Present: GCS=15, CN II-XII Intact, Speech Normal Skin: Present: Warm, Dry, Rashes (Same cluster of papular rash on erythematous base noted to distal lower anterior leg. ), Normal Color Psychiatric: Present: Alert, Oriented x 3, Normal Insight, Normal Concentration Medical Decision Making - Lab Interpretations Lab Results: 09/22/16 14:00 09/22/16 14:00 Lab Results 09/22/16 14:00: Sodium 140, Potassium 3.9, Chloride 102, Carbon Dioxide 28, Anion Gap 14, BUN 9, Creatinine 0.7, Est GFR ( Amer) > 60, Est GFR (Non- Af Amer) > 60, Random Glucose 176 H, Calcium 9.6, Total Bilirubin 0.4, AST 15, ALT 31, Alkaline Phosphatase 74, Total Protein 6.7, Albumin 3.8, Globulin 3.0, Albumin/Globulin Ratio 1.3 09/22/16 14:00: WBC 5.9, RBC 4.15, Hgb 12.3, Hct 36.1, MCV 87.0, MCH 29.6, MCHC 34.1, RDW 13.5, Plt Count 228, MPV 9.2, Gran % 59.8, Lymph % (Auto) 32.6, [place] % (Auto) 4.8, Eos % (Auto) 2.5, Baso % (Auto) 0.3, Gran # 3.52, Lymph # 1.9, [place] # 0.3, Eos # 0.2, Baso # 0.02 - Medication Orders Current Medication Orders: Discontinued Medications Ketorolac Tromethamine (Toradol) 60 mg IM STAT STA Stop: 09/22/16 14:16 Last Admin: 09/22/16 14:37 Dose: 60 mg Disposition/Present on Arrival - Present on Arrival Any Indicators Present on Arrival: No History of DVT/PE: No History of Uncontrolled Diabetes: No Urinary Catheter: No History of Decub. Ulcer: No History Surgical Site Infection Following: None - Disposition Have Diagnosis and Disposition been Completed?: Yes Diagnosis: Leg pain, Rash Disposition: HOME/ ROUTINE Disposition Time: 15:40 Patient Plan: Discharge Condition: STABLE Discharge Instructions (ExitCare): Leg Pain (ED) Additional Instructions: Follow up with your doctor Return to ED for any new symptoms Referrals: PCP,NO [Primary Care Provider] - Follow up with primary
[2016-09-22 15:15] LABS: ADD MANUAL DIFF? NO
[2016-09-22 15:31] LABS: ALB/GLOB RATIO 1.3 (1.1-1.8); ALKALINE PHOSPHATASE 74 U/L (38-133); ALT/SGPT 31 U/L (7-56); AST/SGOT 15 U/L (15-39); BILIRUBIN,TOTAL 0.4 mg/dL (0.2-1.3); BLOOD UREA NITROGEN 9 mg/dL (7-21); CALCIUM 9.6 mg/dL (8.4-10.5); CARBON DIOXIDE 28 mmol/L (21-33); CHLORIDE 102 mmol/L (98-107); GFR AFRICAN-AMERICAN > 60; GLUCOSE,RANDOM 176 mg/dL (70-110); POTASSIUM 3.9 mmol/L (3.6-5.0); SODIUM 140 mmol/L (132-148); TOTAL PROTEIN 6.7 g/dL (5.8-8.3)
[2016-09-22 15:33] LABS: BASO # 0.02 K/mm3 (0.0-2.0); BASO % 0.3 % (0.0-3.0); EOS # 0.2 (0.0-0.7); EOS % 2.5 % (1.5-5.0); GRAN # 3.52 (1.4-6.5); GRAN % 59.8 % (50.0-68.0); HEMATOCRIT 36.1 % (36.0-48.0); LYMPH # 1.9 (1.2-3.4); LYMPH % 32.6 % (22.0-35.0); MEAN CORPUSCULAR HEMOGLOBIN 29.6 pg (25.0-35.0); MEAN CORPUSCULAR HGB CONC 34.1 g/dl (31.0-37.0); MEAN PLATELET VOLUME 9.2 fl (7.0-11.0); MONO # 0.3 (0.1-0.6); MONO % 4.8 % (1.0-6.0); PLATELET COUNT 228 10^3/uL (120.0-450.0); RED CELL DISTRIBUTION WIDTH 13.5 % (11.5-14.5); WHITE BLOOD COUNT 5.9 10^3/ul (4.5-11.0)
[2016-09-22 15:34] VITALS: BP 135/79; PULSE 79; RESP 18
== END 2016-09-22 16:36 | disposition home or self-care (01) ==
LOC: ED 12:37
DX: R21 Rash and other nonspecific skin eruption (principal); M79.662 Pain in left lower leg
CPT/HCPCS: 80053; 85025; 87040; 96372; 99284; J1885

== ENCOUNTER 2016-10-17 13:18 | Emergency (ER) | payer OTHER ==
[2016-10-17 13:18] VITALS: BMI 47.5
[2016-10-17 13:25] VITALS: RESP 17; TEMP 99
--- NOTE | 2016-10-17 13:49 | ED PDOC ---
Arrival/HPI - General Chief Complaint: Abnormal Skin Integrity Time Seen by Provider: 10/17/16 13:34 Historian: Patient - History of Present Illness Time/Duration: Prior to Arrival Symptom Onset: Gradual Symptom Course: Worsening Severity Level: Moderate Activities at Onset: Rest Associated Symptoms (Text): 10/17/16 13:46 Patient complains of a rash on her bilateral lower legs for an unknown time frame. She's been seen in the emergency department several times for similar complaints. It is erythematous and itchy and on her medial bilateral lower legs. She also has an area on her left posterior lower leg. She states that she scratched it open and now it has become red. She has chronic trace bilateral lower extremity edema. She has had negative venous Dopplers in the recent past. No fever or chills. She is requesting Percocet and a prescription for Percocet, but I discussed with her that I was not a pain management physician and she would need to see her PMD for her chronic pain. Did agree to give her some Toradol. Past Medical History - Past History Past History: Non-Contributing - Infectious Disease Hx of Infectious Diseases: None - Tetanus Immunization Tetanus Immunization: Unknown - Reproductive Menopause: Yes - Past Medical History Past Medical History: Non-Contributing - Cardiac Hx Cardiac Disorders: Yes Hx Hypertension: Yes - Pulmonary Hx Respiratory Disorders: Yes Hx Pneumonia: Yes - Neurological Hx Neurological Disorder: No - HEENT Hx HEENT Disorder: No - Renal Hx Renal Disorder: No - Endocrine/Metabolic Hx Endocrine Disorders: Yes Hx Diabetes Mellitus Type 2: Yes - Hematological/Oncological Hx Blood Disorders: No - Integumentary Hx Dermatological Disorder: No - Musculoskeletal/Rheumatological Hx Musculoskeletal Disorders: Yes Hx Arthritis: Yes - Gastrointestinal Hx Gastrointestinal Disorders: Yes Hx Colitis: Yes Hx Diverticulitis: Yes Hx Gastroesophageal Reflux: Yes - Genitourinary/Gynecological Hx Genitourinary Disorders: Yes Hx Incontinence: Yes (stress incontinece) Hx Urinary Tract Infection: Yes - Psychiatric Hx Psychophysiologic Disorder: Yes Hx Anxiety: Yes Hx Bipolar Disorder: Yes Hx Depression: Yes Hx Substance Use: No - Past Surgical History Past Surgical History: Non-Contributing - Surgical History Other/Comment: Colonoscopy. Endoscopy - Anesthesia Hx Anesthesia: Yes - Suicidal Assessment Feels Threatened In Home Enviroment: No Family/Social History - Physician Review Nursing Documentation Reviewed: Yes Family/Social History: Unknown Family HX Smoking Status: Heavy Smoker > 10 Cigarettes Daily Hx Alcohol Use: No Hx Substance Use: No Hx Substance Use Treatment: No Allergies/Home Meds Allergies/Adverse Reactions: Allergies No Known Allergies Allergy (Verified 10/17/16 13:21) Home Medications: Home Meds Medication Instructions Recorded Confirmed Enalapril Maleate [Enalapril] 10 mg PO DAILY 01/09/15 10/17/16 Insulin NPH Hum/Reg Insulin Hm 44 units SC BID 08/25/16 10/17/16 [Humulin 70-30 Vial] Pantoprazole Sodium [Protonix] 40 mg PO DAILY 08/25/16 10/17/16 [id number] CD [Cardizem CD] 340 mg PO DAILY 08/25/16 10/17/16 hydroCHLOROthiazide [Hydrodiuril] 25 mg PO DAILY 08/25/16 10/17/16 Insulin Detemir [Levemir] 0 units SC HS 09/22/16 10/17/16 Review of Systems - Physician Review All systems were reviewed & negative as marked: Yes - Review of Systems Constitutional: Fatigue. absent: Fevers Respiratory: Normal Cardiovascular: Normal Gastrointestinal: Normal Genitourinary Female: Normal Skin: Rash, Pruritis Physical Exam Vital Signs Temp Pulse Resp BP Pulse Ox 10/17/16 13:22 99.0 F 97 H 17 144/92 H 97 Temperature: Afebrile Blood Pressure: Hypertensive Pulse: Regular Respiratory Rate: Normal Appearance: Positive for: Well-Appearing, Non-Toxic, Comfortable, Other (Obese) Pain Distress: None Mental Status: Positive for: Alert and Oriented X 3 - Systems Exam Head: Present: Atraumatic, Normocephalic Respiratory/Chest: Present: Clear to Auscultation, Good Air Exchange. No: Respiratory Distress, Accessory Muscle Use Cardiovascular: Present: Regular Rate and Rhythm, Normal S1, S2. No: Murmurs Upper Extremity: Present: Normal Inspection. No: Cyanosis, Edema Lower Extremity: Present: Normal Inspection, Edema (Trace bilateral lower extremity edema), Tenderness, Swelling, Other (Bilateral medial lower legs of a small erythematous rash. The left posterior calf has a round erythematous tender 10 cm in diameter rash. There is no warmth. No drainage. No abscess.) Neurological: Present: GCS=15, CN II-XII Intact, Speech Normal, Motor Func Grossly Intact Skin: Present: Warm, Dry, Rashes (Rash as above), Normal Color Medical Decision Making ED Course and Treatment: 10/17/16 15:14 Patient reports that she has a problem with her insurance company covering her NovoLog 70/30. She is running out of her insulin and has been taking only half the dose. She only took 20 units today, and she is supposed to be taking 44 units. I discussed the case in detail with Dr. Mancera who saw the patient in the emergency department and will follow-up in the office tomorrow to discuss this situation. I also discussed that I would not be treating her chronic pain with narcotic pain medications. Dr. Mancera requested a prescription for antibiotics, though I do not believe this is cellulitic. - Lab Interpretations Lab Results: 10/17/16 14:04 10/17/16 14:04 Lab Results 10/17/16 14:04: Sodium 137, Potassium 4.3, Chloride 104, Carbon Dioxide 26, Anion Gap 11, BUN 12, Creatinine 0.7, Est GFR ( Amer) > 60, Est GFR (Non- Af Amer) > 60, Random Glucose 298 H, Calcium 9.2, Total Bilirubin 0.4, AST 19, ALT 25, Alkaline Phosphatase 80, Total Protein 6.9, Albumin 3.9, Globulin 3.1, Albumin/Globulin Ratio 1.3 10/17/16 14:04: WBC 6.8, RBC 4.61, Hgb 13.7, Hct 40.1, MCV 87.0, MCH 29.7, MCHC 34.2, RDW 13.2, Plt Count 224, MPV 9.2, Gran % 71.6 H, Lymph % (Auto) 23.1, [place] % (Auto) 3.4, Eos % (Auto) 1.8, Baso % (Auto) 0.1, Gran # 4.86, Lymph # 1.6 , [place] # 0.2, Eos # 0.1, Baso # 0.01 - Medication Orders Current Medication Orders: Discontinued Medications Ketorolac Tromethamine (Toradol) 15 mg IVP ONCE ONE Stop: 10/17/16 13:46 Last Admin: 10/17/16 14:03 Dose: 15 mg Disposition/Present on Arrival - Present on Arrival Any Indicators Present on Arrival: No History of DVT/PE: No History of Uncontrolled Diabetes: No Urinary Catheter: No History of Decub. Ulcer: No History Surgical Site Infection Following: None - Disposition Have Diagnosis and Disposition been Completed?: Yes Diagnosis: Hyperglycemia, Allergic reaction, Cellulitis Disposition: HOME/ ROUTINE Disposition Time: 15:21 Patient Plan: Discharge Condition: GOOD Discharge Instructions (ExitCare): Cellulitis (ED), Diabetic Hyperglycemia (ED) Additional Instructions: Follow-up with PMD tomorrow. Follow up in ER as needed. Prescriptions: Amoxicillin/Clavulanate [Augmentin 875 MG-125 MG] 1 tab PO Q12 #20 tab Referrals: Zana Mancera MD [Primary Care Provider] - Follow up with primary
[2016-10-17 14:05] LABS: ADD MANUAL DIFF? NO
[2016-10-17 14:15] LABS: BASO # 0.01 K/mm3 (0.0-2.0); BASO % 0.1 % (0.0-3.0); EOS # 0.1 (0.0-0.7); EOS % 1.8 % (1.5-5.0); GRAN # 4.86 (1.4-6.5); GRAN % 71.6 % (50.0-68.0); HEMATOCRIT 40.1 % (36.0-48.0); LYMPH # 1.6 (1.2-3.4); LYMPH % 23.1 % (22.0-35.0); MEAN CORPUSCULAR HEMOGLOBIN 29.7 pg (25.0-35.0); MEAN CORPUSCULAR HGB CONC 34.2 g/dl (31.0-37.0); MEAN PLATELET VOLUME 9.2 fl (7.0-11.0); MONO # 0.2 (0.1-0.6); MONO % 3.4 % (1.0-6.0); PLATELET COUNT 224 10^3/uL (120.0-450.0); RED CELL DISTRIBUTION WIDTH 13.2 % (11.5-14.5); WHITE BLOOD COUNT 6.8 10^3/ul (4.5-11.0)
[2016-10-17 14:25] LABS: ALB/GLOB RATIO 1.3 (1.1-1.8); ALKALINE PHOSPHATASE 80 U/L (38-133); ALT/SGPT 25 U/L (7-56); AST/SGOT 19 U/L (15-39); BILIRUBIN,TOTAL 0.4 mg/dL (0.2-1.3); BLOOD UREA NITROGEN 12 mg/dL (7-21); CALCIUM 9.2 mg/dL (8.4-10.5); CARBON DIOXIDE 26 mmol/L (21-33); CHLORIDE 104 mmol/L (98-107); GFR AFRICAN-AMERICAN > 60; GLUCOSE,RANDOM 298 mg/dL (70-110); POTASSIUM 4.3 mmol/L (3.6-5.0); SODIUM 137 mmol/L (132-148); TOTAL PROTEIN 6.9 g/dL (5.8-8.3)
[2016-10-17 15:38] VITALS: BP 149/71; PULSE 80; O2SAT 98
== END 2016-10-17 15:38 | disposition home or self-care (01) ==
LOC: ED 13:18
DX: T78.40XA Allergy, unspecified, initial encounter (principal); X58.XXXA Exposure to other specified factors, initial encounter; L03.116 Cellulitis of left lower limb; L03.115 Cellulitis of right lower limb; E11.65 Type 2 diabetes mellitus with hyperglycemia
CPT/HCPCS: 80053; 85025; 96374; 99283; J1885

== ENCOUNTER 2016-10-29 18:12 | Emergency (ER) | payer OTHER ==
[2016-10-29 18:18] VITALS: BMI 47.2
[2016-10-29 18:22] VITALS: TEMP 99.2
[2016-10-29 19:31] LABS: ADD MANUAL DIFF? NO
--- NOTE | 2016-10-29 19:31 | ED PDOC ---
Arrival/HPI - General Chief Complaint: Lower Extremity Problem/Injury Time Seen by Provider: 10/29/16 18:28 Historian: Patient - History of Present Illness Narrative History of Present Illness (Text): 10/29/16 19:27 55 year old female presents to the emergency department complaining of chronic lower extremity itching, left greater than right. Patient states she saw her PMD and has been on multiple antibiotics already. No other complaints. Time/Duration: > week Symptom Onset: Gradual Symptom Course: Unchanged Associated Symptoms (Text): None Past Medical History - Provider Review Nursing Documentation Reviewed: Yes - Past History Past History: Non-Contributing - Infectious Disease Hx of Infectious Diseases: None - Tetanus Immunization Tetanus Immunization: Unknown - Past Medical History Past Medical History: Non-Contributing - Cardiac Hx Cardiac Disorders: Yes Hx Hypertension: Yes - Pulmonary Hx Respiratory Disorders: Yes Hx Pneumonia: Yes - Neurological Hx Neurological Disorder: No - HEENT Hx HEENT Disorder: No - Renal Hx Renal Disorder: No - Endocrine/Metabolic Hx Endocrine Disorders: Yes Hx Diabetes Mellitus Type 2: Yes - Hematological/Oncological Hx Blood Disorders: No - Integumentary Hx Dermatological Disorder: No - Musculoskeletal/Rheumatological Hx Musculoskeletal Disorders: Yes Hx Arthritis: Yes - Gastrointestinal Hx Gastrointestinal Disorders: Yes Hx Colitis: Yes Hx Diverticulitis: Yes Hx Gastroesophageal Reflux: Yes - Genitourinary/Gynecological Hx Genitourinary Disorders: Yes Hx Incontinence: Yes (stress incontinece) Hx Urinary Tract Infection: Yes - Psychiatric Hx Psychophysiologic Disorder: Yes Hx Anxiety: Yes Hx Bipolar Disorder: Yes Hx Depression: Yes Hx Substance Use: No - Past Surgical History Past Surgical History: Non-Contributing - Surgical History Other/Comment: Colonoscopy. Endoscopy - Anesthesia Hx Anesthesia: Yes - Suicidal Assessment Feels Threatened In Home Enviroment: No Family/Social History - Physician Review Nursing Documentation Reviewed: Yes Family/Social History: Unknown Family HX Smoking Status: Heavy Smoker > 10 Cigarettes Daily Hx Alcohol Use: No Hx Substance Use: No Hx Substance Use Treatment: No Allergies/Home Meds Allergies/Adverse Reactions: Allergies amoxicillin [From Augmentin] Allergy (Verified 10/29/16 18:18) NAUSEA clarithromycin [From Biaxin] Allergy (Verified 10/29/16 18:18) RASH clavulanic acid [From Augmentin] Allergy (Verified 10/29/16 18:18) NAUSEA Home Medications: Home Meds Medication Instructions Recorded Confirmed Enalapril Maleate [Enalapril] 10 mg PO DAILY 01/09/15 10/29/16 Insulin NPH Hum/Reg Insulin Hm 44 units SC BID 08/25/16 10/29/16 [Humulin 70-30 Vial] Pantoprazole Sodium [Protonix] 40 mg PO DAILY 08/25/16 10/29/16 [id number] CD [Cardizem CD] 340 mg PO DAILY 08/25/16 10/29/16 hydroCHLOROthiazide [Hydrodiuril] 25 mg PO DAILY 08/25/16 10/29/16 Insulin Detemir [Levemir] 0 units SC HS 09/22/16 10/29/16 Review of Systems - Physician Review All systems were reviewed & negative as marked: Yes Physical Exam - Physical Exam Narrative Physical Exam (Text): - Review of Systems Constitutional: Normal. absent: Fatigue, Weight Change, Fevers Eyes: Normal ENT: Normal Respiratory: Normal absent: SOB, Cough, Sputum Cardiovascular: Normal absent: Chest pain, Palpitations, Syncope Gastrointestinal: Normal absent: Abdominal pain, Diarrhea, Nausea, Vomiting Genitourinary: Normal. absent: Dysuria, Frequency, Hematuria Musculoskeletal: Normal. absent: Arthralgias, Back Pain, Neck Pain Skin: Chronic lower extremity itching, L>R Neurological: Normal absent: Focal Weakness Endocrine: Normal Hemo/Lymphatic: Normal Psychiatric: Normal - Physical exam Patient appears age appropriate, speaking full sentences without difficulty. - Systems Exam Head: Present: Atraumatic, Normocephalic Pupils: Present: PERRL Extraocular Muscles: Present: EOMI Conjunctiva: Present: Normal Mouth: Present: Moist Mucous Membranes Neck: Present: Normal Range of Motion. No: MIDLINE TENDERNESS, Paraspinal Tenderness Respiratory/Chest: Present: Clear to Auscultation, Good Air Exchange. No: Respiratory Distress, Accessory Muscle Use, Tachypneic Cardiovascular: Present: Regular Rate and Rhythm, Normal S1, S2, Peripheral Pulses Present. No: Murmurs Abdomen: Present: Normal Bowel Sounds, No: Tenderness, Peritoneal Signs, Rebound, Guarding, Distention Back: Present: Normal Inspection. No: Midline Tenderness, Paraspinal Tenderness Upper Extremity: Present: Normal Inspection. No: Cyanosis, Edema Lower Extremity: Left lower extremity and right lower extremity erythema. No tenderness or warmth. Non raised, blanching. No asymmetry. No calf, knee, or thigh tenderness bilaterally. Neurological: Present: GCS=15, Speech Normal, cranial nerves II through XII fully intact with no cerebellar abnormality, neuro-sensory fully intact. No focal neurological deficits. Skin: Present: Warm, Dry, Normal Color. Lymphatic: Present: OX3, NI, NC Psychiatric: Present: Alert, Oriented x 3, Normal Insight, Normal Concentration Vital Signs Reviewed: Yes Vital Signs Temp Pulse Resp BP Pulse Ox 10/29/16 18:21 99.2 F 74 15 112/67 95 Temperature: Afebrile Blood Pressure: Normal Pulse: Regular Respiratory Rate: Normal Appearance: Positive for: Well-Appearing, Non-Toxic, Comfortable Pain Distress: None Mental Status: Positive for: Alert and Oriented X 3 Medical Decision Making ED Course and Treatment: Impression: 55 year old female presents to the emergency department complaining of chronic lower extremity itching, left greater than right. On physical exam, patient has left lower extremity and right lower extremity erythema. No asymmetry. No calf, knee, or thigh tenderness bilaterally. Prior Visits: Notes and results from previous visits were reviewed. Patient last seen in the ED on 10/17/16 for the same complaint and discharged home. Progress Notes: 10/29/16 19:52 pt states she has a PMD Dr. Mancera with whom she can follow up. pt has been on mult abx, pt's rash is chronic, states she is concerned for bed bug bites. will dc home on permethrin cream pt states she feels comfortable being dc'd home with outpatient ffollow up Glu elevated. Pt has a known hx of Diabetes. No gap. No abb pain, no n/v Pt states she understands to return to the ER right away for new or worsening symptoms or for inability to f/u with PMD or specialist as instructed. Patient states that she fully agrees with and understands discharge instructions. States that she agrees with the plan and disposition. Verbalized and repeated discharge instructions and plan. I have given the patient opportunity to ask any additional questions. - Lab Interpretations Lab Results: 10/29/16 19:15 10/29/16 19:15 Lab Results 10/29/16 19:15: Sodium 136, Potassium 4.0, Chloride 99, Carbon Dioxide 27, Anion Gap 14, BUN 18, Creatinine 1.0, Est GFR ( Amer) > 60, Est GFR (Non- Af Amer) 57, Random Glucose 316 H*, Calcium 9.1 10/29/16 19:15: WBC 8.1, RBC 4.55, Hgb 13.4, Hct 40.0, MCV 87.9, MCH 29.5, MCHC 33.5, RDW 13.1, Plt Count 244, MPV 10.0, Gran % 66.6, Lymph % (Auto) 23.9, [place] % (Auto) 5.7, Eos % (Auto) 3.6, Baso % (Auto) 0.2, Gran # 5.39, Lymph # 1.9, [place] # 0.5, Eos # 0.3, Baso # 0.02 - Scribe Statement The provider has reviewed the documentation as recorded by the Arnoldo Thrasher Provider Scribe Attestation: All medical record entries made by the Scribe were at my direction and personally dictated by me. I have reviewed the chart and agree that the record accurately reflects my personal performance of the history, physical exam, medical decision making, and the department course for this patient. I have also personally directed, reviewed, and agree with the discharge instructions and disposition. Disposition/Present on Arrival - Present on Arrival Any Indicators Present on Arrival: No History of DVT/PE: No History of Uncontrolled Diabetes: No Urinary Catheter: No History of Decub. Ulcer: No History Surgical Site Infection Following: None - Disposition Have Diagnosis and Disposition been Completed?: Yes Diagnosis: Rash Disposition: HOME/ ROUTINE Disposition Time: 19:57 Patient Plan: Discharge Condition: GOOD Discharge Instructions (ExitCare): Dermatitis (ED) Additional Instructions: PLEASE RETURN TO THE EMERGENCY DEPARTMENT FOR NEW OR WORSENING SYMPTOMS. RETURN RIGHT AWAY IF YOU CANNOT FOLLOW UP WITH YOUR PRIMARY CARE DOCTOR, CLINIC, OR SPECIALIST IN 1-2 DAYS. Prescriptions: Permethrin 5% [Permethrin 5% Cream] 60 gm EXT ONCE #1 tube Referrals: Zana Mancera MD [Primary Care Provider] - Follow up with primary Yaakov Hwang MD [Staff Provider] - Follow up with primary
[2016-10-29 19:37] LABS: BASO # 0.02 K/mm3 (0.0-2.0); BASO % 0.2 % (0.0-3.0); EOS # 0.3 (0.0-0.7); EOS % 3.6 % (1.5-5.0); GRAN # 5.39 (1.4-6.5); GRAN % 66.6 % (50.0-68.0); LYMPH # 1.9 (1.2-3.4); LYMPH % 23.9 % (22.0-35.0); MEAN CELL VOLUME 87.9 fL (80.0-105.0); MEAN CORPUSCULAR HEMOGLOBIN 29.5 pg (25.0-35.0); MEAN CORPUSCULAR HGB CONC 33.5 g/dl (31.0-37.0); MONO # 0.5 (0.1-0.6); MONO % 5.7 % (1.0-6.0); PLATELET COUNT 244 10^3/uL (120.0-450.0); RED CELL DISTRIBUTION WIDTH 13.1 % (11.5-14.5); WHITE BLOOD COUNT 8.1 10^3/ul (4.5-11.0)
[2016-10-29 19:45] LABS: BLOOD UREA NITROGEN 18 mg/dL (7-21); CALCIUM 9.1 mg/dL (8.4-10.5); CARBON DIOXIDE 27 mmol/L (21-33); CHLORIDE 99 mmol/L (98-107); GFR AFRICAN-AMERICAN > 60; SODIUM 136 mmol/L (132-148)
[2016-10-29 19:47] LABS: GLUCOSE,RANDOM 316 mg/dL (70-110)
[2016-10-29 20:28] VITALS: BP 115/70; PULSE 70; RESP 18; O2SAT 96
== END 2016-10-29 20:10 | disposition home or self-care (01) ==
LOC: ED 18:12
DX: R21 Rash and other nonspecific skin eruption (principal)

== ENCOUNTER 2016-11-01 16:41 | Inpatient (IN) | payer OTHER ==
[2016-11-01 16:42] VITALS: BMI 47.2
--- NOTE | 2016-11-01 20:17 | ED PDOC ---
Arrival/HPI - General Chief Complaint: Lower Extremity Problem/Injury Time Seen by Provider: 11/01/16 17:39 Historian: Patient - History of Present Illness Narrative History of Present Illness (Text): 11/01/16 20:15 55yr old diabetic female presents today with worsening bilateral lower leg redness and pain. Patient states she has been having this swelling and erythema in the lower legs on and off for a while now. Patient states she's been on multiple antibiotics. Patient states he last antibiotic was Levaquin which she finished about a week ago. Patient states the antibiotic made the erythema improved but it has returned. Patient denies fevers or chills no chest pain or shortness of breath. Denies abdominal pain. Patient denies numbness or tingling in the extremities. Patient states she was extremely concerned today because she thought that when she popped one of the blisters on the leg today she noticed a bug fly out of it. Symptom Onset: Gradual Symptom Course: Worsening Quality: Aching, Tightness Severity Level: 5 Past Medical History - Provider Review Nursing Documentation Reviewed: Yes - Travel History Have you recently traveled outside [place] w/in the past 3 mons?: No - Past History Past History: Non-Contributing - Infectious Disease Hx of Infectious Diseases: None - Tetanus Immunization Tetanus Immunization: Unknown - Past Medical History Past Medical History: Non-Contributing - Cardiac Hx Cardiac Disorders: Yes Hx Hypertension: Yes - Pulmonary Hx Respiratory Disorders: Yes Hx Pneumonia: Yes - Neurological Hx Neurological Disorder: No - HEENT Hx HEENT Disorder: No - Renal Hx Renal Disorder: No - Endocrine/Metabolic Hx Endocrine Disorders: Yes Hx Diabetes Mellitus Type 2: Yes - Hematological/Oncological Hx Blood Disorders: No - Integumentary Hx Dermatological Disorder: No - Musculoskeletal/Rheumatological Hx Musculoskeletal Disorders: Yes Hx Arthritis: Yes - Gastrointestinal Hx Gastrointestinal Disorders: Yes Hx Colitis: Yes Hx Diverticulitis: Yes Hx Gastroesophageal Reflux: Yes - Genitourinary/Gynecological Hx Genitourinary Disorders: Yes Hx Incontinence: Yes (stress incontinece) Hx Urinary Tract Infection: Yes - Psychiatric Hx Psychophysiologic Disorder: Yes Hx Anxiety: Yes Hx Bipolar Disorder: Yes Hx Depression: Yes Hx Substance Use: No - Past Surgical History Past Surgical History: Non-Contributing - Surgical History Other/Comment: Colonoscopy. Endoscopy - Anesthesia Hx Anesthesia: Yes Hx Anesthesia Reactions: No - Suicidal Assessment Feels Threatened In Home Enviroment: No Family/Social History - Physician Review Nursing Documentation Reviewed: Yes Family/Social History: Unknown Family HX Smoking Status: Heavy Smoker > 10 Cigarettes Daily Hx Alcohol Use: No Hx Substance Use: No Hx Substance Use Treatment: No Allergies/Home Meds Allergies/Adverse Reactions: Allergies amoxicillin [From Augmentin] Allergy (Verified 11/01/16 17:41) NAUSEA clarithromycin [From Biaxin] Allergy (Verified 11/01/16 17:41) RASH clavulanic acid [From Augmentin] Allergy (Verified 11/01/16 17:41) NAUSEA Home Medications: Home Meds Medication Instructions Recorded Confirmed Enalapril Maleate [Enalapril] 10 mg PO DAILY 01/09/15 11/01/16 Insulin NPH Hum/Reg Insulin Hm 44 units SC BID 08/25/16 11/01/16 [Humulin 70-30 Vial] Pantoprazole Sodium [Protonix] 40 mg PO DAILY 08/25/16 11/01/16 [id number] CD [Cardizem CD] 340 mg PO DAILY 08/25/16 11/01/16 hydroCHLOROthiazide [Hydrodiuril] 25 mg PO DAILY 08/25/16 11/01/16 Insulin Detemir [Levemir] 0 units SC HS 09/22/16 11/01/16 Review of Systems - Review of Systems Constitutional: absent: Fatigue, Fevers Respiratory: absent: SOB, Cough Cardiovascular: absent: Chest Pain Gastrointestinal: absent: Abdominal Pain, Vomiting Musculoskeletal: Arthralgias Skin: Rash, Cellulitis Neurological: absent: Headache, Dizziness Physical Exam Vital Signs Reviewed: Yes Vital Signs Temp Pulse Resp BP Pulse Ox 11/01/16 17:40 98.7 F 80 18 157/80 H 97 Temperature: Afebrile Blood Pressure: Hypertensive Pulse: Regular Respiratory Rate: Normal Appearance: Positive for: Well-Appearing, Non-Toxic, Comfortable Pain Distress: None Mental Status: Positive for: Alert and Oriented X 3 - Systems Exam Head: Present: Atraumatic Respiratory/Chest: Present: Clear to Auscultation, Good Air Exchange. No: Respiratory Distress, Accessory Muscle Use Cardiovascular: Present: Regular Rate and Rhythm, Normal S1, S2. No: Murmurs Back: Present: Normal Inspection Lower Extremity: Present: CALF TENDERNESS, NORMAL PULSES, Normal ROM, Tenderness , Swelling, Neurovascularly Intact, Capillary Refill < 2 s Neurological: Present: GCS=15 Skin: Present: Warm, Dry Psychiatric: Present: Alert Medical Decision Making ED Course and Treatment: 11/01/16 21:01 55-year-old diabetic female with bilateral lower leg cellulitis CBC within normal limits CMP glucose 255 Blood cultures pending Venous duplex of the bilateral lower extremities show no DVT from the report from wireless field technician Patient given 500 mL normal saline IV bolus Aztreonam and vancomycin ordered IV pt requesting percocet for pain; refused tramadol. case discussed with dr. boucher; he would like patient to be admitted to hospitalist because he will be on vacation. Case discussed in depth with Dr. Santos and Dr. wisdom accept observational status admission to [facility] for cellulitis of the lower studies bilaterally. all results discussed in depth with the patient. impression; cellulitis, diabetes admit observational status to med/surg - Lab Interpretations Lab Results: 11/01/16 20:00 11/01/16 20:00 Lab Results 11/01/16 20:20: Urine Color Yellow, Urine Appearance Clear, Urine pH 6.0, Ur Specific [place] 1.025, Urine Protein Negative, Urine Glucose (UA) 500 H, Urine Ketones 15 H, Urine Blood Negative, Urine Nitrate Negative, Urine Bilirubin Negative, Urine Urobilinogen 0.2, Ur Leukocyte Esterase Negative 11/01/16 20:00: WBC 5.7 D, RBC 4.15, Hgb 12.2, Hct 36.3, MCV 87.5, MCH 29.4, MCHC 33.6, RDW 13.3, Plt Count 216, MPV 9.7, Gran % 71.3 H, Lymph % (Auto) 19.3 L, [place] % (Auto) 5.1, Eos % (Auto) 3.9, Baso % (Auto) 0.4, Gran # 4.04, Lymph # 1.1 L, [place] # 0.3, Eos # 0.2, Baso # 0.02 11/01/16 20:00: Sodium 136, Potassium 3.9, Chloride 99, Carbon Dioxide 29, Anion Gap 12, BUN 13, Creatinine 0.7, Est GFR ( Amer) > 60, Est GFR (Non- Af Amer) > 60, Random Glucose 255 H, Calcium 9.1, Total Bilirubin 0.3, AST 19, ALT 28, Alkaline Phosphatase 88, Total Protein 6.4, Albumin 3.5, Globulin 2.9, Albumin/Globulin Ratio 1.2 - RAD Interpretation Radiology Orders: 11/01/16 18:06 DUPLEX LOWER EXTRM VEIN BILAT [US] Stat - Medication Orders Current Medication Orders: Aztreonam (Azactam 1 Gm) 100 mls @ 100 mls/hr IVPB STAT STA PRN Reason: Protocol Stop: 11/01/16 21:45 Vancomycin HCl (Vancomycin 1gm) 1 gm in 250 mls @ 167 mls/hr IVPB STAT STA PRN Reason: Protocol Stop: 11/01/16 22:15 Sodium Chloride (Sodium Chloride 0.9%) 500 mls @ 999 mls/hr IV .Q31M STA Stop: 11/01/16 21:18 Discontinued Medications Oxycodone/Acetaminophen (Percocet 5/325 Mg Tab) 1 tab PO STAT STA Stop: 11/01/16 20:53 Tramadol HCl (Ultram) 50 mg PO STAT STA Stop: 11/01/16 18:06 Last Admin: 11/01/16 19:47 Dose: Disposition/Present on Arrival - Present on Arrival Any Indicators Present on Arrival: No History of DVT/PE: No History of Uncontrolled Diabetes: No Urinary Catheter: No History of Decub. Ulcer: No History Surgical Site Infection Following: None - Disposition Have Diagnosis and Disposition been Completed?: Yes Diagnosis: Cellulitis Disposition: HOSPITALIZED Disposition Time: 20:14 Patient Problems: Current Active Problems Problem Status Onset Cellulitis Acute Condition: FAIR Discharge Instructions (ExitCare): Cellulitis (ED) Referrals: Zana Boucher MD [Primary Care Provider] - Follow up with primary
[2016-11-01 20:24] LABS: ADD MANUAL DIFF? NO
[2016-11-01 20:38] LABS: ALB/GLOB RATIO 1.2 (1.1-1.8); ALKALINE PHOSPHATASE 88 U/L (38-133); ALT/SGPT 28 U/L (7-56); AST/SGOT 19 U/L (15-39); BILIRUBIN,TOTAL 0.3 mg/dL (0.2-1.3); BLOOD UREA NITROGEN 13 mg/dL (7-21); CALCIUM 9.1 mg/dL (8.4-10.5); CARBON DIOXIDE 29 mmol/L (21-33); CHLORIDE 99 mmol/L (98-107); GFR AFRICAN-AMERICAN > 60; GLUCOSE,RANDOM 255 mg/dL (70-110); POTASSIUM 3.9 mmol/L (3.6-5.0); SODIUM 136 mmol/L (132-148); TOTAL PROTEIN 6.4 g/dL (5.8-8.3)
--- NOTE | 2016-11-01 20:38 | US ---
HISTORY: Leg pain and swelling. Evaluate for DVT PHYSICIAN(S): Aric Nielsen MD. TECHNIQUE: Duplex sonography and color-flow Doppler with graded compression were used to evaluate the deep venous systems of both lower extremities. The exam is limited by body habitus and edema. FINDINGS: The visualized deep venous systems of both lower extremities are sonographically normal and compressible. Normal wave forms and augmentation are seen. There is no sonographic evidence for deep venous thrombosis in the visualized segments of both lower extremities. IMPRESSION: No sonographic evidence for deep venous thrombosis in the visualized segments of both lower extremities.
[2016-11-01 20:40] LABS: URINE BILIRUBIN NEGATIVE (NEGATIVE); URINE BLOOD NEGATIVE (NEGATIVE); URINE GLUCOSE (UA) 500 mg/dL (NEGATIVE); URINE KETONE 15 mg/dL (NEGATIVE); URINE LEUKOCYTE ESTERASE NEGATIVE Leu/uL (NEGATIVE); URINE PROTEIN NEGATIVE mg/dL (<30 mg/dL); URINE UROBILINOGEN 0.2 E.U./dL (<1 E.U./dL)
[2016-11-01 20:41] LABS: URINE APPEARANCE CLEAR (CLEAR); URINE COLOR YELLOW (YELLOW)
[2016-11-01 20:41] LABS: BASO # 0.02 K/mm3 (0.0-2.0); BASO % 0.4 % (0.0-3.0); EOS # 0.2 (0.0-0.7); EOS % 3.9 % (1.5-5.0); GRAN # 4.04 (1.4-6.5); GRAN % 71.3 % (50.0-68.0); HEMATOCRIT 36.3 % (36.0-48.0); LYMPH # 1.1 (1.2-3.4); LYMPH % 19.3 % (22.0-35.0); MEAN CELL VOLUME 87.5 fL (80.0-105.0); MEAN CORPUSCULAR HEMOGLOBIN 29.4 pg (25.0-35.0); MEAN CORPUSCULAR HGB CONC 33.6 g/dl (31.0-37.0); MEAN PLATELET VOLUME 9.7 fl (7.0-11.0); MONO # 0.3 (0.1-0.6); MONO % 5.1 % (1.0-6.0); PLATELET COUNT 216 10^3/uL (120.0-450.0); RED CELL DISTRIBUTION WIDTH 13.3 % (11.5-14.5); WHITE BLOOD COUNT 5.7 10^3/ul (4.5-11.0)
[2016-11-01] MEDS ORDERED: Vancomycin 1gm in NS 250ml 1 GM/250 ML BAG IVPB STA (20:46)
[2016-11-01] MEDS ORDERED: Aztreonam 1 Gm in NS 100mL 100 ML IVPB STA (20:46)
[2016-11-01] MEDS ORDERED: Sodium Chloride 0.9% 500 ML IV STA (20:48)
[2016-11-01] MEDS ORDERED: Oxycodone/Acetaminophen 5/325 mg Tab PO STA (20:52)
[2016-11-01] MEDS ORDERED: Levalbuterol 1.25 MG/3 ML Inhal Soln UD IH PRN (22:02)
[2016-11-01] MEDS: Insulin Detemir 100 units/ml Vial (Levemir) SC SCH (23:03)
[2016-11-01] MEDS ORDERED: HYDROmorphone 0.5 mg/0.5 ml ISec IVP STA (23:05)
[2016-11-02] MEDS: Aztreonam 1 Gm in NS 100mL 100 ML IVPB SCH ×2 (01:00→05:06)
--- NOTE | 2016-11-02 03:30 | CP.PCM.HP ---
History of Present Illness - History of Present Illness History of Present Illness: 55 year old white woman came from home about 4 PM as per her, complains of both legs pain, swelling , redness, itching for about 4 weeks, started after she had scratched legs, has been getting worst for last one week, has been to [facility] 3 times in last one week, went to [facility] last Tuesday for same,has some cough without phlegm, denies fever, chills, chest pain, sob, abdomianl pain, nausea, vomiting. ALLERGIES:Biaxin-gets upset stomach, amoxicillin, Clavulanic acid. PMH:HTNx 20 years. DM II.x 20 years. Asthma x 1 year. Cellulitis of leg 25 years ago, does not know which leg she had cellulitis in. PAST SURGICAL HISTORY:[facility]. Had colonoscopy and endoscopy done by in 2013. Cardiac catheterization- neg. in May 2014. 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 FH:Multiple members had heart disease. Maternal Grandmother-DM and cancer ,can not specify what specific cancer. 2 Great Aunts had breast cancer. Uncle on father side-Brain cancer. Brother and sister had kidney stones. SOCIAL HISTORY:Smoking- 1/2 PPD x 20 years. ETOH -Denies. Drugs-Used marijuana sometimes at young age. On disability. PMD:. (On vacation as per her.) HOME MEDICATIONS:Cardizem 340 mg po daily. Enalapril 10 mg PO daily. Lantus 25 units SC if needed. Humalog prn. Depokote 1000 mg po HS. Geodon 80 mg PO daily. Amitryptiline 100 mg po HS. Protonix prn. Prilosec prn. Spiriva prn. Albuterol inhaler prn. ROS:Has history of Rheumatoid arthritis. Gets right hip pain sometimes. Has neuropathy. Has bifocal eyeglasses. Pneumonia 5 times, one time was hospitalized. Has history of anemia.During . Had UTI x 2. Gets migraines sometimes. Suffers from bipolar disease. States that she has enlarged liver and spleen. Present on Admission - Present on Admission Any Indicators Present on Admission: No History of DVT/PE: No History of Uncontrolled Diabetes: No Urinary Catheter: No Decubitus Ulcer Present: No History Surgical Site Infection Following: None Review of Systems - Review of Systems All systems: reviewed and no additional remarkable complaints except (as mentioned in HPI.) Past Patient History - Infectious Disease Hx of Infectious Diseases: None - Tetanus Immunizations Tetanus Immunization: Unknown - Past Medical History & Family History Past Medical History?: Yes - Past Social History Smoking Status: Heavy Smoker > 10 Cigarettes Daily - CARDIAC Hx Cardiac Disorders: Yes Hx Hypertension: Yes - PULMONARY Hx Respiratory Disorders: Yes Hx Pneumonia: Yes - NEUROLOGICAL Hx Neurological Disorder: No - HEENT Hx HEENT Problems: No - RENAL Hx Chronic Kidney Disease: No - ENDOCRINE/METABOLIC Hx Endocrine Disorders: Yes Hx Diabetes Mellitus Type 2: Yes - HEMATOLOGICAL/ONCOLOGICAL Hx Blood Disorders: No - INTEGUMENTARY Hx Dermatological Problems: No Other/Comment: cellulitis to the lower extremities since 08/23 - MUSCULOSKELETAL/RHEUMATOLOGICAL Hx Musculoskeletal Disorders: Yes Hx Arthritis: Yes Hx Falls: No - GASTROINTESTINAL Hx Gastrointestinal Disorders: Yes Hx Diverticulitis: Yes Hx Gastroesophageal Reflux: Yes Other/Comment: colitis - GENITOURINARY/GYNECOLOGICAL Hx Genitourinary Disorders: Yes Hx Incontinence: Yes (stress incontinece) Hx Urinary Tract Infection: Yes LMP:: 11/2009 : 1 Para: 1 Termination of : 0 - PSYCHIATRIC Hx Psychophysiologic Disorder: Yes Hx Anxiety: Yes Hx Bipolar Disorder: Yes Hx Depression: Yes Hx Schizophrenia: Yes - SURGICAL HISTORY Other/Comment: Colonoscopy. Endoscopy - ANESTHESIA Hx Anesthesia: Yes Hx Anesthesia Reactions: No Meds Allergies/Adverse Reactions: Allergies Allergy/AdvReac Type Severity Reaction Status Date / Time amoxicillin [From Augmentin] Allergy NAUSEA Verified 11/01/16 17:41 clarithromycin [From Biaxin] Allergy RASH Verified 11/01/16 17:41 clavulanic acid Allergy NAUSEA Verified 11/01/16 17:41 [From Augmentin] Physical Exam - Constitutional Appears: Well, In Acute Distress - Head Exam Head Exam: ATRAUMATIC, NORMAL INSPECTION, NORMOCEPHALIC Additional comments: Obese person . Not in distress. - Eye Exam Eye Exam: Normal appearance - ENT Exam ENT Exam: Mucous Membranes Moist, TM's Normal Bilaterally - Neck Exam Neck exam: Positive for: Normal Inspection - Respiratory Exam Respiratory Exam: Clear to Auscultation Bilateral, NORMAL BREATHING PATTERN. absent: Accessory Muscle Use, Prolonged Expiratory Phase, Rales, Rhonchi, Respiratory Distress, Stridor - Cardiovascular Exam Cardiovascular Exam: REGULAR RHYTHM, +S1 (Normal.), +S2 (Normal.). absent: JVD - GI/Abdominal Exam GI & Abdominal Exam: absent: Distended, Tenderness - Rectal Exam Rectal Exam: Deferred - Exam Additional comments: Deferred. - Extremities Exam Extremities exam: Positive for: calf tenderness, pedal edema, tenderness Additional comments: Both legs are swollen, red, tender. Left > Right. - Back Exam Back exam: NORMAL INSPECTION. absent: CVA tenderness (L), CVA tenderness (R) - Neurological Exam Neurological exam: Alert, CN II-XII Intact, Oriented x3 - Psychiatric Exam Psychiatric exam: Normal Affect, Normal Mood - Skin Additional comments: Both legs skin erythematous. Results - Vital Signs Recent Vital Signs: Last Vital Signs Temp 98.7 F 11/01/16 17:40 Pulse 77 11/01/16 23:12 Resp 18 11/02/16 00:20 BP 128/58 L 11/01/16 23:12 Pulse Ox 95 11/01/16 23:12 - Labs Result Diagrams: 11/01/16 20:00 11/01/16 20:00 - Imaging and Cardiology Venous US Status: Image reviewed by me, Report reviewed by me (Negative for DVT.) Assessment & Plan - Assessment and Plan (Free Text) Assessment: Bilateral lower extremities cellulitis. NIDDM. HTN. Obesity. Ashthma. Former smoker. History Rheumatoid arthritis. Plan: Admitted to medical surgical floor. Heart healthy diet. Elevation of affected extremities. Warm compress to affected extremities. Repeat CBC, CMP in AM. ID consultation. Continue home medications. Analgesics , antipyretics prn. Continue IV Vancomycin. GI/DVT prophylaxis. Duoneb treatment as ordered. - Date & Time Date: 11/02/16 Time: 03:45
[2016-11-02] MEDS ORDERED: Albuterol-Ipratrop 3 mg / 0.5 (3 ml) UD IH PRN (04:01)
[2016-11-02] MEDS: Pantoprazole 40 mg EC Tab PO SCH (05:07)
[2016-11-02 06:52] LABS: ADD MANUAL DIFF? NO
[2016-11-02 06:59] LABS: BASO # 0.02 K/mm3 (0.0-2.0); BASO % 0.4 % (0.0-3.0); EOS # 0.2 (0.0-0.7); EOS % 4.7 % (1.5-5.0); GRAN % 57.8 % (50.0-68.0); HEMATOCRIT 35.9 % (36.0-48.0); LYMPH # 1.5 (1.2-3.4); LYMPH % 30.1 % (22.0-35.0); MEAN CELL VOLUME 87.1 fL (80.0-105.0); MEAN CORPUSCULAR HEMOGLOBIN 29.4 pg (25.0-35.0); MEAN CORPUSCULAR HGB CONC 33.7 g/dl (31.0-37.0); MEAN PLATELET VOLUME 9.5 fl (7.0-11.0); MONO # 0.3 (0.1-0.6); PLATELET COUNT 193 10^3/uL (120.0-450.0); RED CELL DISTRIBUTION WIDTH 13.5 % (11.5-14.5); WHITE BLOOD COUNT 4.9 10^3/ul (4.5-11.0)
[2016-11-02 07:26] LABS: ALB/GLOB RATIO 1.3 (1.1-1.8); ALKALINE PHOSPHATASE 82 U/L (38-133); ALT/SGPT 25 U/L (7-56); AST/SGOT 17 U/L (15-39); BILIRUBIN,TOTAL 0.3 mg/dL (0.2-1.3); BLOOD UREA NITROGEN 9 mg/dL (7-21); CALCIUM 8.6 mg/dL (8.4-10.5); CARBON DIOXIDE 29 mmol/L (21-33); CHLORIDE 103 mmol/L (98-107); GFR AFRICAN-AMERICAN > 60; GLUCOSE,RANDOM 211 mg/dL (70-110); POTASSIUM 4.1 mmol/L (3.6-5.0); SODIUM 136 mmol/L (132-148); TOTAL PROTEIN 5.9 g/dL (5.8-8.3)
[2016-11-02] MEDS: INSULIN LISPRO 1 UNIT/0.01 ML SC SCH ×4 (08:29→21:56)
[2016-11-02] MEDS: Oxycodone/Acetaminophen 5/325 mg Tab PO PRN ×4 (08:30→21:15)
[2016-11-02] MEDS: Meropenem 1g/NS 100mL IVPB 1 GM/100 ML PIGGYBACK IVPB SCH ×5 (09:35→21:21)
[2016-11-02] MEDS ORDERED: Vancomycin 1gm in NS 250ml 1 GM/250 ML BAG IVPB SCH (10:00)
[2016-11-02] MEDS: Insulin Human NPH/Reg 70/30 Vial(3 ml) SC SCH ×2 (10:16→16:49)
[2016-11-02] MEDS: Enoxaparin 40 mg Syringe SC SCH (10:19)
[2016-11-02] MEDS: diltiaZEM 180 mg/24 Hours CD Cap PO SCH (10:20)
--- NOTE | 2016-11-02 12:16 | RAD ---
HISTORY: sob, cough COMPARISON: 09/13/2016 FINDINGS: LUNGS: No active pulmonary disease. PLEURA: No significant pleural effusion identified, no pneumothorax apparent. CARDIOVASCULAR: Normal. OSSEOUS STRUCTURES: No significant abnormalities. VISUALIZED UPPER ABDOMEN: Normal. OTHER FINDINGS: None. IMPRESSION: No active disease.
[2016-11-02] MEDS: Divalproex 500 mg DR(BID formulation) PO SCH (21:17)
[2016-11-02] MEDS ORDERED: Divalproex 250 mg DR (BID formulation) PO SCH (22:00)
[2016-11-02] MEDS: Insulin Detemir 100 units/ml Vial (Levemir) SC SCH (22:10)
--- NOTE | 2016-11-02 23:57 | CP.PCM.CON ---
History of Present Illness - History of Present Illness History of Present Illness: MORBID OBESITY BMI 42 HTN DM C/O LOWER EXT ERYTHEM Past Patient History - Infectious Disease Hx of Infectious Diseases: None - Tetanus Immunizations Tetanus Immunization: Unknown - Past Medical History & Family History Past Medical History?: Yes - Past Social History Smoking Status: Heavy Smoker > 10 Cigarettes Daily - CARDIAC Hx Cardiac Disorders: Yes Hx Hypertension: Yes - PULMONARY Hx Respiratory Disorders: Yes Hx Pneumonia: Yes - NEUROLOGICAL Hx Neurological Disorder: No - HEENT Hx HEENT Problems: No - RENAL Hx Chronic Kidney Disease: No - ENDOCRINE/METABOLIC Hx Endocrine Disorders: Yes Hx Diabetes Mellitus Type 2: Yes - HEMATOLOGICAL/ONCOLOGICAL Hx Blood Disorders: No - INTEGUMENTARY Hx Dermatological Problems: No Other/Comment: cellulitis to the lower extremities since 08/23 - MUSCULOSKELETAL/RHEUMATOLOGICAL Hx Musculoskeletal Disorders: Yes Hx Arthritis: Yes Hx Falls: No - GASTROINTESTINAL Hx Gastrointestinal Disorders: Yes Hx Diverticulitis: Yes Hx Gastroesophageal Reflux: Yes Other/Comment: colitis - GENITOURINARY/GYNECOLOGICAL Hx Genitourinary Disorders: Yes Hx Incontinence: Yes (stress incontinece) Hx Urinary Tract Infection: Yes LMP:: 11/2009 : 1 Para: 1 Termination of : 0 - PSYCHIATRIC Hx Psychophysiologic Disorder: Yes Hx Anxiety: Yes Hx Bipolar Disorder: Yes Hx Depression: Yes Hx Schizophrenia: Yes - SURGICAL HISTORY Other/Comment: Colonoscopy. Endoscopy - ANESTHESIA Hx Anesthesia: Yes Hx Anesthesia Reactions: No Meds Allergies/Adverse Reactions: Allergies Allergy/AdvReac Type Severity Reaction Status Date / Time amoxicillin [From Augmentin] Allergy NAUSEA Verified 11/01/16 17:41 clarithromycin [From Biaxin] Allergy RASH Verified 11/01/16 17:41 clavulanic acid Allergy NAUSEA Verified 11/01/16 17:41 [From Augmentin] - Medications Medications: Current Medications Acetaminophen (Tylenol 325mg Tab) 650 mg PO Q6 PRN PRN Reason: Pain, Mild (1-3) Acetaminophen (Tylenol 325mg Tab) 650 mg PO Q6 PRN PRN Reason: Fever >100.4 F Albuterol/Ipratropium (Duoneb 3 Mg/0.5 Mg (3 Ml) Ud) 3 ml IH [id number] PRN PRN Reason: wheezing /sob Last Admin: 11/02/16 06:01 Dose: 3 ml Amitriptyline HCl (Elavil) 100 mg PO HS [facility] Last Admin: 11/02/16 21:17 Dose: 100 mg Diltiazem HCl (Cardizem Cd) 360 mg PO DAILY [facility] Last Admin: 11/02/16 10:20 Dose: 360 mg Divalproex Sodium (Depakote Dr(*Bid*)) 1,000 mg PO [facility] PRN Reason: Protocol Last Admin: 11/02/16 21:17 Dose: 1,000 mg Docusate Sodium (Colace) 100 mg PO BID [facility] Last Admin: 11/02/16 16:59 Dose: Not Given Enoxaparin Sodium (Lovenox) 40 mg SC DAILY [facility] PRN Reason: Protocol Last Admin: 11/02/16 10:19 Dose: 40 mg Hydrochlorothiazide (Hydrodiuril) 25 mg PO DAILY [facility] Last Admin: 11/02/16 10:20 Dose: 25 mg Meropenem 1g/NS 100mL IVPB (Meropenem 1g/Ns 100ml Ivpb) 1 gm in 100 mls @ 100 mls/hr IVPB Q8 [facility] PRN Reason: Protocol Stop: 11/11/16 09:34 Last Admin: 11/02/16 21:21 Dose: 100 mls/hr Insulin Detemir (Levemir) 10 unit SC [facility] Last Admin: 11/02/16 22:10 Dose: Not Given Insulin Human Lispro (Humalog) 0 units SC [facility] PRN Reason: Protocol Last Admin: 11/02/16 21:56 Dose: Not Given Levalbuterol HCl (Xopenex) 1.25 mg IH Q2H PRN PRN Reason: SOB Linezolid (Zyvox) 600 mg PO BID [facility] PRN Reason: Protocol Stop: 11/11/16 10:01 Last Admin: 11/02/16 16:59 Dose: 600 mg Lisinopril (Zestril) 10 mg PO DAILY [facility] Last Admin: 11/02/16 10:24 Dose: 10 mg Oxycodone/Acetaminophen (Percocet 5/325 Mg Tab) 1 tab PO Q4 PRN PRN Reason: Pain, moderate (4-7) Stop: 11/05/16 03:47 Last Admin: 11/02/16 21:15 Dose: 1 tab Pantoprazole Sodium (Protonix Ec Tab) 40 mg PO 0600 [facility] Last Admin: 11/02/16 05:07 Dose: 40 mg Tramadol HCl (Ultram) 50 mg PO Q6 PRN PRN Reason: Pain Last Admin: 11/02/16 20:14 Dose: 50 mg Ziprasidone (Geodon Cap) 80 mg PO HS [facility] PRN Reason: Protocol Last Admin: 11/02/16 21:19 Dose: 80 mg Results - Vital Signs Recent Vital Signs: Last Vital Signs Temp 98.5 F 11/02/16 16:30 Pulse 70 11/02/16 16:30 Resp 20 11/02/16 16:30 BP 102/60 11/02/16 16:30 Pulse Ox 96 11/02/16 16:30 - Labs Result Diagrams: 11/02/16 06:30 11/02/16 06:30 Assessment & Plan - Assessment and Plan (Free Text) Assessment: B/L LOWER EX CELLULITIS LEFT GREATER THAN RIGHT Plan: MERR/ZYVOX - Date & Time Date: 11/02/16 Time: 10:00
[2016-11-03] MEDS: Oxycodone/Acetaminophen 5/325 mg Tab PO PRN ×4 (04:12→19:57)
[2016-11-03] MEDS: Meropenem 1g/NS 100mL IVPB 1 GM/100 ML PIGGYBACK IVPB SCH ×3 (05:39→21:34)
[2016-11-03] MEDS: Pantoprazole 40 mg EC Tab PO SCH (05:40)
[2016-11-03] MEDS: INSULIN LISPRO 1 UNIT/0.01 ML SC SCH ×3 (08:36→17:21)
[2016-11-03] MEDS: Insulin Human NPH/Reg 70/30 Vial(3 ml) SC SCH ×2 (08:37→17:19)
[2016-11-03] MEDS: Enoxaparin 40 mg Syringe SC SCH (09:12)
[2016-11-03] MEDS: diltiaZEM 180 mg/24 Hours CD Cap PO SCH (09:13)
--- NOTE | 2016-11-03 14:20 | CP.PCM.PN ---
<Henrry Degroot - Last Filed: 11/03/16 14:07> Subjective - Date & Time of Evaluation Date of Evaluation: 11/03/16 Time of Evaluation: 08:00 - Subjective Subjective: Medicine progress note: Pt seen and examined at bedside. No acute events overnight. Pt is having visual hallucination saying "there is bugs coming out of my leg." She does state that her leg is less tender. Denies any greer, dizziness, f/c, sob, cp, abd pain, n/v/ d. Objective - Vital Signs/Intake and Output Vital Signs (last 24 hours): Temp Pulse Resp BP Pulse Ox 98.5 F 82 20 117/83 96 11/02/16 16:30 11/03/16 09:13 11/02/16 16:30 11/03/16 09:13 11/02/16 16:30 Intake and Output: 11/03/16 11/03/16 06:59 18:59 Intake Total 1860 Balance 1860 - Medications Medications: Current Medications Acetaminophen (Tylenol 325mg Tab) 650 mg PO Q6 PRN PRN Reason: Pain, Mild (1-3) Acetaminophen (Tylenol 325mg Tab) 650 mg PO Q6 PRN PRN Reason: Fever >100.4 F Albuterol/Ipratropium (Duoneb 3 Mg/0.5 Mg (3 Ml) Ud) 3 ml IH [id number] PRN PRN Reason: wheezing /sob Last Admin: 11/02/16 06:01 Dose: 3 ml Amitriptyline HCl (Elavil) 100 mg PO HS [facility] Last Admin: 11/02/16 21:17 Dose: 100 mg Diltiazem HCl (Cardizem Cd) 360 mg PO DAILY [facility] Last Admin: 11/03/16 09:13 Dose: 360 mg Divalproex Sodium (Depakote Dr(*Bid*)) 1,000 mg PO HS [facility] PRN Reason: Protocol Last Admin: 11/02/16 21:17 Dose: 1,000 mg Docusate Sodium (Colace) 100 mg PO BID [facility] Last Admin: 11/03/16 09:19 Dose: Not Given Enoxaparin Sodium (Lovenox) 40 mg SC DAILY [facility] PRN Reason: Protocol Last Admin: 11/03/16 09:12 Dose: 40 mg Hydrochlorothiazide (Hydrodiuril) 25 mg PO DAILY [facility] Last Admin: 11/03/16 09:14 Dose: 25 mg Meropenem 1g/NS 100mL IVPB (Meropenem 1g/Ns 100ml Ivpb) 1 gm in 100 mls @ 100 mls/hr IVPB Q8 [facility] PRN Reason: Protocol Stop: 11/11/16 09:34 Last Admin: 11/03/16 05:39 Dose: 100 mls/hr Insulin Detemir (Levemir) 10 unit SC [facility] Last Admin: 11/02/16 22:10 Dose: Not Given Insulin Human Lispro (Humalog) 0 units SC [facility] PRN Reason: Protocol Last Admin: 11/03/16 12:14 Dose: 2 units Levalbuterol HCl (Xopenex) 1.25 mg IH Q2H PRN PRN Reason: SOB Linezolid (Zyvox) 600 mg PO BID [facility] PRN Reason: Protocol Stop: 11/11/16 10:01 Last Admin: 11/03/16 09:13 Dose: 600 mg Lisinopril (Zestril) 10 mg PO DAILY [facility] Last Admin: 11/03/16 09:13 Dose: 10 mg Oxycodone/Acetaminophen (Percocet 5/325 Mg Tab) 1 tab PO Q4 PRN PRN Reason: Pain, moderate (4-7) Stop: 11/05/16 03:47 Last Admin: 11/03/16 09:14 Dose: 1 tab Pantoprazole Sodium (Protonix Ec Tab) 40 mg PO 0600 [facility] Last Admin: 11/03/16 05:40 Dose: 40 mg Tramadol HCl (Ultram) 50 mg PO Q6 PRN PRN Reason: Pain Last Admin: 11/02/16 20:14 Dose: 50 mg Ziprasidone (Geodon Cap) 80 mg PO [facility] PRN Reason: Protocol Last Admin: 11/02/16 21:19 Dose: 80 mg - Constitutional Appears: No Acute Distress - Head Exam Head Exam: ATRAUMATIC, NORMAL INSPECTION, NORMOCEPHALIC - Eye Exam Eye Exam: EOMI, Normal appearance, PERRL Pupil Exam: NORMAL ACCOMODATION, PERRL - ENT Exam ENT Exam: Mucous Membranes Moist, Normal Exam - Neck Exam Neck Exam: Full ROM, Normal Inspection. absent: Lymphadenopathy - Respiratory Exam Respiratory Exam: Clear to Ausculation Bilateral, NORMAL BREATHING PATTERN. absent: Rhonchi, Wheezes - Cardiovascular Exam Cardiovascular Exam: REGULAR RHYTHM, RRR, +S1, +S2. absent: Murmur - GI/Abdominal Exam GI & Abdominal Exam: Soft, Normal Bowel Sounds. absent: Distended, Tenderness - Extremities Exam Extremities Exam: Full ROM, Normal Capillary Refill, Pedal Edema, Tenderness. absent: Calf Tenderness, Joint Swelling Additional comments: 1+ edema, area of cellulites on b/l lower ext has decreased - Back Exam Back Exam: NORMAL INSPECTION - Neurological Exam Neurological Exam: Alert, Awake, CN II-XII Intact, Normal Gait, Oriented x3 - Psychiatric Exam Psychiatric exam: Normal Affect, Normal Mood - Skin Skin Exam: Dry, Intact, Normal Color, Warm Assessment and Plan - Assessment and Plan (Free Text) Assessment: 55 year old woman with pmh of DM, HTN, morbid obesity, asthma, presents with b/ l lower ext cellulites. Pt having visual hallucinations " seeing bugs." 1. Bilateral lower extremities cellulitis - Elevation of affected extremities - ID consultation - started on Zyvox and Denice - Analgesics , antipyretics prn - Pain control - Ext us: negative for DVT - CXR - no active disease 2. Visual Hallucinations - Cont psych meds - Elavil, Depakote, Geodon - f/u psych consult 3. DM. - Insulin Levemir 10 units HS - ISS as protocol 4. HTN. - cont HCTZ, lisinopril, cardizem 5. Obesity. - Encourage and educate weight loss and diet 6. Asthma. - Cont Xopenex prn 7. GI/DVT prophylaxis. - protonix and Lovenox Heart healthy diet Case and plan was seen, reviewed and discussed in detail with Yossi. <Yossi CASTILLO,Louiserebersburgleanna - Last Filed: 11/03/16 15:05> Objective - Vital Signs/Intake and Output Vital Signs (last 24 hours): Temp Pulse Resp BP Pulse Ox 98.5 F 82 20 117/83 96 11/02/16 16:30 11/03/16 09:13 11/02/16 16:30 11/03/16 09:13 11/02/16 16:30 Intake and Output: 11/03/16 11/03/16 06:59 18:59 Intake Total 1860 Balance 1860 - Medications Medications: Current Medications Acetaminophen (Tylenol 325mg Tab) 650 mg PO Q6 PRN PRN Reason: Pain, Mild (1-3) Acetaminophen (Tylenol 325mg Tab) 650 mg PO Q6 PRN PRN Reason: Fever >100.4 F Albuterol/Ipratropium (Duoneb 3 Mg/0.5 Mg (3 Ml) Ud) 3 ml IH [id number] PRN PRN Reason: wheezing /sob Last Admin: 11/02/16 06:01 Dose: 3 ml Amitriptyline HCl (Elavil) 100 mg PO HS [facility] Last Admin: 11/02/16 21:17 Dose: 100 mg Diltiazem HCl (Cardizem Cd) 360 mg PO DAILY [facility] Last Admin: 11/03/16 09:13 Dose: 360 mg Divalproex Sodium (Depakote Dr(*Bid*)) 1,000 mg PO HS [facility] PRN Reason: Protocol Last Admin: 11/02/16 21:17 Dose: 1,000 mg Docusate Sodium (Colace) 100 mg PO BID [facility] Last Admin: 11/03/16 09:19 Dose: Not Given Enoxaparin Sodium (Lovenox) 40 mg SC DAILY [facility] PRN Reason: Protocol Last Admin: 11/03/16 09:12 Dose: 40 mg Hydrochlorothiazide (Hydrodiuril) 25 mg PO DAILY [facility] Last Admin: 11/03/16 09:14 Dose: 25 mg Meropenem 1g/NS 100mL IVPB (Meropenem 1g/Ns 100ml Ivpb) 1 gm in 100 mls @ 100 mls/hr IVPB Q8 [facility] PRN Reason: Protocol Stop: 11/11/16 09:34 Last Admin: 11/03/16 05:39 Dose: 100 mls/hr Insulin Detemir (Levemir) 10 unit SC [facility] Last Admin: 11/02/16 22:10 Dose: Not Given Insulin Human Lispro (Humalog) 0 units SC [facility] PRN Reason: Protocol Last Admin: 11/03/16 12:14 Dose: 2 units Levalbuterol HCl (Xopenex) 1.25 mg IH Q2H PRN PRN Reason: SOB Linezolid (Zyvox) 600 mg PO BID [facility] PRN Reason: Protocol Stop: 11/11/16 10:01 Last Admin: 11/03/16 09:13 Dose: 600 mg Lisinopril (Zestril) 10 mg PO DAILY [facility] Last Admin: 11/03/16 09:13 Dose: 10 mg Oxycodone/Acetaminophen (Percocet 5/325 Mg Tab) 1 tab PO Q4 PRN PRN Reason: Pain, moderate (4-7) Stop: 11/05/16 03:47 Last Admin: 11/03/16 09:14 Dose: 1 tab Pantoprazole Sodium (Protonix Ec Tab) 40 mg PO 0600 [facility] Last Admin: 11/03/16 05:40 Dose: 40 mg Tramadol HCl (Ultram) 50 mg PO Q6 PRN PRN Reason: Pain Last Admin: 11/02/16 20:14 Dose: 50 mg Ziprasidone (Geodon Cap) 80 mg PO HS [facility] PRN Reason: Protocol Last Admin: 11/02/16 21:19 Dose: 80 mg Attending/Attestation - Attestation I have personally seen and examined this patient.: Yes I have fully participated in the care of the patient.: Yes I have reviewed all pertinent clinical information, including history, physical exam and plan: Yes Notes (Text): 11/03/16 15:01 Patient was seen and examined with certified ophthalmic medical technician .Agreed with resident assessment and plan. 55 year old woman with pmh of DM, HTN, morbid obesity, asthma, presents with b/ l lower ext cellulitis. Patient cellulitis is improving, she is afebrile, cultures are negative.However she is having having visual hallucination, will get Psychiatry evaluation.Blood sugars are running high, we will increase dose of Levemir to 13 units QHS, we will monbitor and adjust medications. Management plan was discussed in detail with patient Education was provided. 11/03/16 15:03 11/03/16 15:04
[2016-11-03] MEDS: Divalproex 500 mg DR(BID formulation) PO SCH (21:28)
--- NOTE | 2016-11-03 21:28 | CP.PCM.PN ---
Subjective - Date & Time of Evaluation Date of Evaluation: 11/03/16 Time of Evaluation: 06:50 - Subjective Subjective: DOING BETTER LEGS MUCH IMPROVED Objective - Vital Signs/Intake and Output Vital Signs (last 24 hours): Temp Pulse Resp BP Pulse Ox 98.4 F 56 L 18 107/56 L 97 11/03/16 16:30 11/03/16 16:30 11/03/16 16:30 11/03/16 16:30 11/03/16 16:30 Intake and Output: 11/03/16 11/04/16 18:59 06:59 Intake Total 900 Balance 900 - Medications Medications: Current Medications Acetaminophen (Tylenol 325mg Tab) 650 mg PO Q6 PRN PRN Reason: Pain, Mild (1-3) Acetaminophen (Tylenol 325mg Tab) 650 mg PO Q6 PRN PRN Reason: Fever >100.4 F Albuterol/Ipratropium (Duoneb 3 Mg/0.5 Mg (3 Ml) Ud) 3 ml IH [id number] PRN PRN Reason: wheezing /sob Last Admin: 11/02/16 06:01 Dose: 3 ml Amitriptyline HCl (Elavil) 100 mg PO HS [facility] Last Admin: 11/02/16 21:17 Dose: 100 mg Diltiazem HCl (Cardizem Cd) 360 mg PO DAILY [facility] Last Admin: 11/03/16 09:13 Dose: 360 mg Divalproex Sodium (Depakote Dr(*Bid*)) 1,000 mg PO HS [facility] PRN Reason: Protocol Last Admin: 11/02/16 21:17 Dose: 1,000 mg Docusate Sodium (Colace) 100 mg PO BID [facility] Last Admin: 11/03/16 17:22 Dose: Not Given Enoxaparin Sodium (Lovenox) 40 mg SC DAILY [facility] PRN Reason: Protocol Last Admin: 11/03/16 09:12 Dose: 40 mg Hydrochlorothiazide (Hydrodiuril) 25 mg PO DAILY [facility] Last Admin: 11/03/16 09:14 Dose: 25 mg Meropenem 1g/NS 100mL IVPB (Meropenem 1g/Ns 100ml Ivpb) 1 gm in 100 mls @ 100 mls/hr IVPB Q8 [facility] PRN Reason: Protocol Stop: 11/11/16 09:34 Last Admin: 11/03/16 17:22 Dose: 100 mls/hr Insulin Detemir (Levemir) 10 unit SC [facility] Last Admin: 11/02/16 22:10 Dose: Not Given Insulin Human Lispro (Humalog) 0 units SC [facility] PRN Reason: Protocol Last Admin: 11/03/16 17:21 Dose: 1 units Levalbuterol HCl (Xopenex) 1.25 mg IH Q2H PRN PRN Reason: SOB Linezolid (Zyvox) 600 mg PO BID [facility] PRN Reason: Protocol Stop: 11/11/16 10:01 Last Admin: 11/03/16 17:21 Dose: 600 mg Lisinopril (Zestril) 10 mg PO DAILY [facility] Last Admin: 11/03/16 09:13 Dose: 10 mg Oxycodone/Acetaminophen (Percocet 5/325 Mg Tab) 1 tab PO Q4 PRN PRN Reason: Pain, moderate (4-7) Stop: 11/05/16 03:47 Last Admin: 11/03/16 19:57 Dose: 1 tab Pantoprazole Sodium (Protonix Ec Tab) 40 mg PO 0600 [facility] Last Admin: 11/03/16 05:40 Dose: 40 mg Tramadol HCl (Ultram) 50 mg PO Q6 PRN PRN Reason: Pain Last Admin: 11/03/16 17:26 Dose: 50 mg Ziprasidone (Geodon Cap) 80 mg PO [facility] PRN Reason: Protocol Last Admin: 11/02/16 21:19 Dose: 80 mg - Constitutional Appears: Well - Head Exam Head Exam: ATRAUMATIC, NORMAL INSPECTION, NORMOCEPHALIC - Eye Exam Eye Exam: EOMI, Normal appearance, PERRL Pupil Exam: NORMAL ACCOMODATION, PERRL - ENT Exam ENT Exam: Mucous Membranes Moist, Normal Exam - Neck Exam Neck Exam: Full ROM, Normal Inspection. absent: Lymphadenopathy - Respiratory Exam Respiratory Exam: Clear to Ausculation Bilateral, NORMAL BREATHING PATTERN - Cardiovascular Exam Cardiovascular Exam: REGULAR RHYTHM, +S1, +S2. absent: Murmur - GI/Abdominal Exam GI & Abdominal Exam: Soft, Normal Bowel Sounds. absent: Tenderness - Rectal Exam Rectal Exam: NORMAL INSPECTION - Exam Exam: Circumcision, NORMAL INSPECTION External exam: NORMAL EXTERNAL EXAM Speculum exam: NORMAL SPECULUM EXAM Bimanual exam: NORMAL BIMANUAL EXAM - Extremities Exam Extremities Exam: Full ROM, Normal Capillary Refill, Normal Inspection. absent : Joint Swelling, Pedal Edema - Back Exam Back Exam: NORMAL INSPECTION - Neurological Exam Neurological Exam: Alert, Awake, CN II-XII Intact, Normal Gait, Oriented x3 - Psychiatric Exam Psychiatric exam: Normal Affect, Normal Mood - Skin Skin Exam: Dry, Intact, Normal Color, Warm Assessment and Plan - Assessment and Plan (Free Text) Assessment: B/L LEG CELLULITIS IMPROVING Plan: ABX
[2016-11-03] MEDS: Insulin Detemir 100 units/ml Vial (Levemir) SC SCH (21:33)
[2016-11-04] MEDS: Oxycodone/Acetaminophen 5/325 mg Tab PO PRN ×3 (01:10→13:49)
[2016-11-04] MEDS: INSULIN LISPRO 1 UNIT/0.01 ML SC SCH ×3 (01:31→12:11)
[2016-11-04] MEDS: Meropenem 1g/NS 100mL IVPB 1 GM/100 ML PIGGYBACK IVPB SCH ×2 (05:13→13:49)
[2016-11-04 07:45] VITALS: RESP 20; TEMP 97.8; O2SAT 94
[2016-11-04] MEDS: Insulin Human NPH/Reg 70/30 Vial(3 ml) SC SCH (08:10)
[2016-11-04] MEDS: Pantoprazole 40 mg EC Tab PO SCH (08:11)
[2016-11-04] MEDS: diltiaZEM 180 mg/24 Hours CD Cap PO SCH (10:34)
[2016-11-04] MEDS: Enoxaparin 40 mg Syringe SC SCH (10:38)
[2016-11-04 10:42] VITALS: PULSE 70
[2016-11-04 12:49] VITALS: BP 115/70
--- NOTE | 2016-11-04 15:25 | CP.PCM.PN ---
Subjective - Date & Time of Evaluation Date of Evaluation: 11/04/16 Time of Evaluation: 10:00 - Subjective Subjective: legs much improved Objective - Vital Signs/Intake and Output Vital Signs (last 24 hours): Temp Pulse Resp BP Pulse Ox 97.8 F 70 20 115/70 94 L 11/04/16 07:30 11/04/16 10:37 11/04/16 07:30 11/04/16 12:46 11/04/16 07:30 Intake and Output: 11/04/16 11/04/16 06:59 18:59 Intake Total 1380 400 Balance 1380 400 - Medications Medications: Current Medications Acetaminophen (Tylenol 325mg Tab) 650 mg PO Q6 PRN PRN Reason: Pain, Mild (1-3) Acetaminophen (Tylenol 325mg Tab) 650 mg PO Q6 PRN PRN Reason: Fever >100.4 F Albuterol/Ipratropium (Duoneb 3 Mg/0.5 Mg (3 Ml) Ud) 3 ml IH [id number] PRN PRN Reason: wheezing /sob Last Admin: 11/02/16 06:01 Dose: 3 ml Amitriptyline HCl (Elavil) 100 mg PO HS [facility] Last Admin: 11/03/16 21:30 Dose: 100 mg Diltiazem HCl (Cardizem Cd) 360 mg PO DAILY [facility] Last Admin: 11/04/16 10:34 Dose: 360 mg Divalproex Sodium (Depakote Dr(*Bid*)) 1,000 mg PO HS [facility] PRN Reason: Protocol Last Admin: 11/03/16 21:28 Dose: 1,000 mg Docusate Sodium (Colace) 100 mg PO BID [facility] Last Admin: 11/04/16 10:42 Dose: Not Given Enoxaparin Sodium (Lovenox) 40 mg SC DAILY [facility] PRN Reason: Protocol Last Admin: 11/04/16 10:38 Dose: 40 mg Hydrochlorothiazide (Hydrodiuril) 25 mg PO DAILY [facility] Last Admin: 11/04/16 10:38 Dose: 25 mg Meropenem 1g/NS 100mL IVPB (Meropenem 1g/Ns 100ml Ivpb) 1 gm in 100 mls @ 100 mls/hr IVPB Q8 [facility] PRN Reason: Protocol Stop: 11/11/16 09:34 Last Admin: 11/04/16 13:49 Dose: 100 mls/hr Insulin Detemir (Levemir) 10 unit SC [facility] Last Admin: 11/03/16 21:33 Dose: 10 unit Insulin Human Lispro (Humalog) 0 units SC [facility] PRN Reason: Protocol Last Admin: 11/04/16 12:11 Dose: Not Given Levalbuterol HCl (Xopenex) 1.25 mg IH Q2H PRN PRN Reason: SOB Linezolid (Zyvox) 600 mg PO BID [facility] PRN Reason: Protocol Stop: 11/11/16 10:01 Last Admin: 11/04/16 10:37 Dose: 600 mg Lisinopril (Zestril) 10 mg PO DAILY [facility] Last Admin: 11/04/16 10:37 Dose: 10 mg Oxycodone/Acetaminophen (Percocet 5/325 Mg Tab) 1 tab PO Q4 PRN PRN Reason: Pain, moderate (4-7) Stop: 11/05/16 03:47 Last Admin: 11/04/16 13:49 Dose: 1 tab Pantoprazole Sodium (Protonix Ec Tab) 40 mg PO 0600 [facility] Last Admin: 11/04/16 08:11 Dose: 40 mg Tramadol HCl (Ultram) 50 mg PO Q6 PRN PRN Reason: Pain Last Admin: 11/04/16 10:41 Dose: 50 mg Ziprasidone (Geodon Cap) 80 mg PO [facility] PRN Reason: Protocol Last Admin: 11/03/16 21:29 Dose: 80 mg - Constitutional Appears: Well - Head Exam Head Exam: ATRAUMATIC, NORMAL INSPECTION, NORMOCEPHALIC - Eye Exam Eye Exam: EOMI, Normal appearance, PERRL Pupil Exam: NORMAL ACCOMODATION, PERRL - ENT Exam ENT Exam: Mucous Membranes Moist, Normal Exam - Neck Exam Neck Exam: Full ROM, Normal Inspection. absent: Lymphadenopathy - Respiratory Exam Respiratory Exam: Clear to Ausculation Bilateral, NORMAL BREATHING PATTERN - Cardiovascular Exam Cardiovascular Exam: REGULAR RHYTHM, +S1, +S2. absent: Murmur - GI/Abdominal Exam GI & Abdominal Exam: Soft, Normal Bowel Sounds. absent: Tenderness - Rectal Exam Rectal Exam: NORMAL INSPECTION - Exam Exam: Circumcision, NORMAL INSPECTION External exam: NORMAL EXTERNAL EXAM Speculum exam: NORMAL SPECULUM EXAM Bimanual exam: NORMAL BIMANUAL EXAM - Extremities Exam Extremities Exam: Full ROM, Normal Capillary Refill, Normal Inspection. absent : Joint Swelling, Pedal Edema - Back Exam Back Exam: NORMAL INSPECTION - Neurological Exam Neurological Exam: Alert, Awake, CN II-XII Intact, Normal Gait, Oriented x3 - Psychiatric Exam Psychiatric exam: Normal Affect, Normal Mood - Skin Skin Exam: Dry, Intact, Normal Color, Warm Assessment and Plan - Assessment and Plan (Free Text) Assessment: b/l cellulitis Plan: d/c iv abx po doxy 100mg bid for 5 days d/w with pmd
--- NOTE | 2016-11-04 16:04 | CP.PCM.DIS ---
<Henrry Degroot - Last Filed: 11/04/16 15:55> Provider - Provider Date of Admission: 11/02/16 11:12 Attending physician: Mary Sy MD Primary care physician: Zana Mancera MD Consults: ID, Psych Time Spent in preparation of Discharge (in minutes): 40 Hospital Course - Lab Results Lab Results: Most Recent Lab Values WBC 4.9 10^3/ul (4.5-11.0) 11/02/16 06:30 RBC 4.12 10^6/uL (3.5-6.1) 11/02/16 06:30 Hgb 12.1 gm/dL (12.0-16.0) 11/02/16 06:30 Hct 35.9 % (36.0-48.0) L 11/02/16 06:30 MCV 87.1 fL (80.0-105.0) 11/02/16 06:30 MCH 29.4 pg (25.0-35.0) 11/02/16 06:30 MCHC 33.7 g/dl (31.0-37.0) 11/02/16 06:30 RDW 13.5 % (11.5-14.5) 11/02/16 06:30 Plt Count 193 10^3/uL (120.0-450.0) 11/02/16 06:30 MPV 9.5 fl (7.0-11.0) 11/02/16 06:30 Gran % 57.8 % (50.0-68.0) 11/02/16 06:30 Lymph % (Auto) 30.1 % (22.0-35.0) 11/02/16 06:30 [place] % (Auto) 7.0 % (1.0-6.0) H 11/02/16 06:30 Eos % (Auto) 4.7 % (1.5-5.0) 11/02/16 06:30 Baso % (Auto) 0.4 % (0.0-3.0) 11/02/16 06:30 Gran # 2.80 (1.4-6.5) 11/02/16 06:30 Lymph # 1.5 (1.2-3.4) 11/02/16 06:30 [place] # 0.3 (0.1-0.6) 11/02/16 06:30 Eos # 0.2 (0.0-0.7) 11/02/16 06:30 Baso # 0.02 K/mm3 (0.0-2.0) 11/02/16 06:30 Sodium 136 mmol/L (132-148) 11/02/16 06:30 Potassium 4.1 mmol/L (3.6-5.0) 11/02/16 06:30 Chloride 103 mmol/L (98-107) 11/02/16 06:30 Carbon Dioxide 29 mmol/L (21-33) 11/02/16 06:30 Anion Gap 8 (10-20) L 11/02/16 06:30 BUN 9 mg/dL (7-21) 11/02/16 06:30 Creatinine 0.6 mg/dL (0.5-1.4) 11/02/16 06:30 Est GFR ( Amer) > 60 11/02/16 06:30 Est GFR (Non-Af Amer) > 60 11/02/16 06:30 POC Glucose (mg/dL) 264 mg/dL (65-110) H 11/01/16 22:46 Random Glucose 211 mg/dL (70-110) H 11/02/16 06:30 Calcium 8.6 mg/dL (8.4-10.5) 11/02/16 06:30 Total Bilirubin 0.3 mg/dL (0.2-1.3) 11/02/16 06:30 AST 17 U/L (15-39) 11/02/16 06:30 ALT 25 U/L (7-56) 11/02/16 06:30 Alkaline Phosphatase 82 U/L (38-133) 11/02/16 06:30 Total Protein 5.9 g/dL (5.8-8.3) 11/02/16 06:30 Albumin 3.3 g/dL (3.0-4.8) 11/02/16 06:30 Globulin 2.6 gm/dL 11/02/16 06:30 Albumin/Globulin Ratio 1.3 (1.1-1.8) 11/02/16 06:30 Urine Color Yellow (YELLOW) 11/01/16 20:20 Urine Appearance Clear (CLEAR) 11/01/16 20:20 Urine pH 6.0 (4.7-8.0) 11/01/16 20:20 Ur Specific Harold 1.025 (1.005-1.035) 11/01/16 20:20 Urine Protein Negative mg/dL (<30 mg/dL) 11/01/16 20:20 Urine Glucose (UA) 500 mg/dL (NEGATIVE) H 11/01/16 20:20 Urine Ketones 15 mg/dL (NEGATIVE) H 11/01/16 20:20 Urine Blood Negative (NEGATIVE) 11/01/16 20:20 Urine Nitrate Negative (NEGATIVE) 11/01/16 20:20 Urine Bilirubin Negative (NEGATIVE) 11/01/16 20:20 Urine Urobilinogen 0.2 E.U./dL (<1 E.U./dL) 11/01/16 20:20 Ur Leukocyte Esterase Negative Jordana/uL (NEGATIVE) 11/01/16 20:20 - Hospital Course Hospital Course: 55 year old white woman came from home about 4 PM as per her, complains of b/l lower ext pain, swelling , redness, itching x 4 weeks, started after she had scratched legs. Pt also c/o non productive cough. In the ED basic lab work was done. Ext us: negative for DVT. Antibiotics Vanco was started in the ED. Pt was sent to the floor for closer monitoring. Pt still c/o of a cough and CXR was done and showed no active disease. ID was consulted and placed the patient on Denice and Zyvox. Pt was having visual hallucinations (seeing bugs" and psychiatry was consulted. Pts lower ext started to respond very well to the antibiotics. Psychiatry evaluated the pt and cont current management. Today the pt is doing much better. ID recommend to take Doxy 100mg PO BID for 5 additional days. 1 dose of lasix 40mg IV was prdered stat due to lower ext edema. Lasix 20mg PO ordered and outpt follow up with PMD. Pt denies any greer, dizziness, f/c, n/v/d, sob, abd pain, urinary or bm changes. Discharge Exam - Head Exam Head Exam: ATRAUMATIC, NORMAL INSPECTION, NORMOCEPHALIC - Eye Exam Eye Exam: EOMI, Normal appearance, PERRL Pupil Exam: NORMAL ACCOMODATION, PERRL - ENT Exam ENT Exam: Mucous Membranes Moist - Respiratory Exam Respiratory Exam: Clear to PA & Lateral. absent: Rales, Rhonchi, Wheezes - Cardiovascular Exam Cardiovascular Exam: REGULAR RHYTHM, RRR, +S1, +S2 - GI/Abdominal Exam GI & Abdominal Exam: Normal Bowel Sounds, Soft. absent: Tenderness - Extremities Exam Additional comments: b/l 2+ pedal edema. no calf tenderness - Neurological Exam Neurological exam: Alert, CN II-XII Intact, Normal Gait, Oriented x3, Reflexes Normal - Psychiatric Exam Psychiatric exam: Normal Affect, Normal Mood - Skin Skin Exam: Dry, Intact, Normal Color, Warm Discharge Plan - Discharge Medications Prescriptions: Doxycycline Hyclate [Doryx] 100 mg PO BID #10 cap Furosemide [Lasix] 20 mg PO DAILY #14 tablet Insulin NPH Hum/Reg Insulin Hm [Humulin 70-30 Vial] 44 units SC BID #1 - Follow Up Plan Condition: IMPROVED Disposition: HOME/ ROUTINE Instructions: Asthma (DC), Cellulitis (DC), Cellulitis (GEN), Cigarette Smoking and Your Health (GEN), Diabetes Mellitus Type 2 in Adults (GEN), Basic Carbohydrate Counting (DC), Meal Planning with Diabetes Exchanges (DC), Chronic Hypertension (DC), Acute Delirium (GEN) Additional Instructions: 1.Follow up with your PMD with in 2-3 days. 2.If your symptoms worsen come back to the closest ED. 3.Take your medication as prescribed. 4. See instruction what to do if underlying diagnosis worsen. 5. Moderate Carb. Consistency diet/ Heart Healthy Diet/ See instruction. Referrals: Candido Khan MD [Staff Provider] - Zana Mancera MD [Primary Care Provider] - <Mary Sy MD - Last Filed: 11/04/16 17:03> Provider - Provider Date of Admission: 11/02/16 11:12 Attending physician: Mary Sy MD Primary care physician: Zana Mancera MD Hospital Course - Lab Results Lab Results: Most Recent Lab Values WBC 4.9 10^3/ul (4.5-11.0) 11/02/16 06:30 RBC 4.12 10^6/uL (3.5-6.1) 11/02/16 06:30 Hgb 12.1 gm/dL (12.0-16.0) 11/02/16 06:30 Hct 35.9 % (36.0-48.0) L 11/02/16 06:30 MCV 87.1 fL (80.0-105.0) 11/02/16 06:30 MCH 29.4 pg (25.0-35.0) 11/02/16 06:30 MCHC 33.7 g/dl (31.0-37.0) 11/02/16 06:30 RDW 13.5 % (11.5-14.5) 11/02/16 06:30 Plt Count 193 10^3/uL (120.0-450.0) 11/02/16 06:30 MPV 9.5 fl (7.0-11.0) 11/02/16 06:30 Gran % 57.8 % (50.0-68.0) 11/02/16 06:30 Lymph % (Auto) 30.1 % (22.0-35.0) 11/02/16 06:30 [place] % (Auto) 7.0 % (1.0-6.0) H 11/02/16 06:30 Eos % (Auto) 4.7 % (1.5-5.0) 11/02/16 06:30 Baso % (Auto) 0.4 % (0.0-3.0) 11/02/16 06:30 Gran # 2.80 (1.4-6.5) 11/02/16 06:30 Lymph # 1.5 (1.2-3.4) 11/02/16 06:30 [place] # 0.3 (0.1-0.6) 11/02/16 06:30 Eos # 0.2 (0.0-0.7) 11/02/16 06:30 Baso # 0.02 K/mm3 (0.0-2.0) 11/02/16 06:30 Sodium 136 mmol/L (132-148) 11/02/16 06:30 Potassium 4.1 mmol/L (3.6-5.0) 11/02/16 06:30 Chloride 103 mmol/L (98-107) 11/02/16 06:30 Carbon Dioxide 29 mmol/L (21-33) 11/02/16 06:30 Anion Gap 8 (10-20) L 11/02/16 06:30 BUN 9 mg/dL (7-21) 11/02/16 06:30 Creatinine 0.6 mg/dL (0.5-1.4) 11/02/16 06:30 Est GFR ( Amer) > 60 11/02/16 06:30 Est GFR (Non-Af Amer) > 60 11/02/16 06:30 POC Glucose (mg/dL) 264 mg/dL (65-110) H 11/01/16 22:46 Random Glucose 211 mg/dL (70-110) H 11/02/16 06:30 Calcium 8.6 mg/dL (8.4-10.5) 11/02/16 06:30 Total Bilirubin 0.3 mg/dL (0.2-1.3) 11/02/16 06:30 AST 17 U/L (15-39) 11/02/16 06:30 ALT 25 U/L (7-56) 11/02/16 06:30 Alkaline Phosphatase 82 U/L (38-133) 11/02/16 06:30 Total Protein 5.9 g/dL (5.8-8.3) 11/02/16 06:30 Albumin 3.3 g/dL (3.0-4.8) 11/02/16 06:30 Globulin 2.6 gm/dL 11/02/16 06:30 Albumin/Globulin Ratio 1.3 (1.1-1.8) 11/02/16 06:30 Urine Color Yellow (YELLOW) 11/01/16 20:20 Urine Appearance Clear (CLEAR) 11/01/16 20:20 Urine pH 6.0 (4.7-8.0) 11/01/16 20:20 Ur Specific [place] 1.025 (1.005-1.035) 11/01/16 20:20 Urine Protein Negative mg/dL (<30 mg/dL) 11/01/16 20:20 Urine Glucose (UA) 500 mg/dL (NEGATIVE) H 11/01/16 20:20 Urine Ketones 15 mg/dL (NEGATIVE) H 11/01/16 20:20 Urine Blood Negative (NEGATIVE) 11/01/16 20:20 Urine Nitrate Negative (NEGATIVE) 11/01/16 20:20 Urine Bilirubin Negative (NEGATIVE) 11/01/16 20:20 Urine Urobilinogen 0.2 E.U./dL (<1 E.U./dL) 11/01/16 20:20 Ur Leukocyte Esterase Negative Jordana/uL (NEGATIVE) 11/01/16 20:20 Attending/Attestation - Attestation I have personally seen and examined this patient.: Yes I have fully participated in the care of the patient.: Yes I have reviewed all pertinent clinical information, including history, physical exam and plan: Yes Notes (Text): 11/04/16 17:00 Patient was seen and examined with medical technologist blood bank .Agreed with resident assessment and plan. 55 year old woman with pmh of DM, HTN, morbid obesity, asthma, presents with b/ l lower extetremity cellulitis more on left than right. Patient cellulitis is improving, she is afebrile, cultures are negative.Patient antibiotics will be switched to oral doxycycline as per ID and patient cab be discharged home. She is not having having visual hallucination today.She will also be started on oral lasix as her leg edema is worsen from her base line, she will need repeat BMP in one week. Management plan was discussed in detail with patient Education was provided.
== END 2016-11-04 15:24 | disposition home or self-care (01) | DRG 278 ==
LOC: ED 16:41 → ERH 20:48 → 5RNO 11-02 → OBSVTOIN 11-02 11:12
PROVIDERS: ADMIT Internal Medicine; ATTEND Internal Medicine
DX: L03.115 Cellulitis of right lower limb (principal); L03.116 Cellulitis of left lower limb; I10 Essential (primary) hypertension; J45.909 Unspecified asthma, uncomplicated; E11.9 Type 2 diabetes mellitus without complications; R44.1 Visual hallucinations; E66.01 Morbid (severe) obesity due to excess calories; M06.9 Rheumatoid arthritis, unspecified; Z68.39 Body mass index [BMI] 39.0-39.9, adult; Z87.891 Personal history of nicotine dependence; Z79.4 Long term (current) use of insulin

== ENCOUNTER 2016-11-23 19:31 | Emergency (ER) | payer OTHER ==
[2016-11-23 19:33] VITALS: BMI 47.2
[2016-11-23 19:54] VITALS: PULSE 78; TEMP 98.8
[2016-11-23] MEDS ORDERED: Morphine 4 mg/ml ISec IV STA (21:15)
[2016-11-23 21:33] LABS: BASO # 0.02 K/mm3 (0.0-2.0); BASO % 0.3 % (0.0-3.0); EOS # 0.2 (0.0-0.7); GRAN # 3.78 (1.4-6.5); GRAN % 60.2 % (50.0-68.0); HEMOGLOBIN 12.7 gm/dL (12.0-16.0); LYMPH % 31.4 % (22.0-35.0); MEAN CELL VOLUME 88.3 fL (80.0-105.0); MEAN CORPUSCULAR HEMOGLOBIN 29.8 pg (25.0-35.0); MEAN CORPUSCULAR HGB CONC 33.8 g/dl (31.0-37.0); MEAN PLATELET VOLUME 9.7 fl (7.0-11.0); MONO # 0.3 (0.1-0.6); MONO % 5.1 % (1.0-6.0); PLATELET COUNT 224 10^3/uL (120.0-450.0); RBC 4.26 10^6/uL (3.5-6.1); RED CELL DISTRIBUTION WIDTH 13.1 % (11.5-14.5); WHITE BLOOD COUNT 6.3 10^3/ul (4.5-11.0)
[2016-11-23 21:42] LABS: ALB/GLOB RATIO 1.3 (1.1-1.8); ALBUMIN 3.5 g/dL (3.0-4.8); ALT/SGPT 23 U/L (7-56); AST/SGOT 12 U/L (15-39); BLOOD UREA NITROGEN 15 mg/dL (7-21); CALCIUM 9.2 mg/dL (8.4-10.5); GFR AFRICAN-AMERICAN > 60; GFR NON-AFRICAN AMERICAN > 60
[2016-11-23] MEDS ORDERED: Morphine 4 mg/ml ISec IVP STA (21:42)
--- NOTE | 2016-11-23 21:46 | ED PDOC ---
Arrival/HPI - General Chief Complaint: Lower Extremity Problem/Injury Time Seen by Provider: 11/23/16 20:32 Historian: Patient - History of Present Illness Narrative History of Present Illness (Text): 11/23/16 21:43 Patient sts she was recently admitted to [facility] for b/l LE cellulitis. Patient sts she was d/c home on the end of October with improvement. She sts that she developed pain and erythema of the left LE 2 days ago. Patient denies fever. Past Medical History - Provider Review Nursing Documentation Reviewed: Yes - Travel History Have you recently traveled outside [place] w/in the past 3 mons?: No - Past History Past History: Non-Contributing - Infectious Disease Hx of Infectious Diseases: None - Tetanus Immunization Tetanus Immunization: Unknown - Past Medical History Past Medical History: Non-Contributing - Cardiac Hx Cardiac Disorders: Yes Hx Hypertension: Yes - Pulmonary Hx Respiratory Disorders: Yes Hx Pneumonia: Yes - Neurological Hx Neurological Disorder: No - HEENT Hx HEENT Disorder: No - Renal Hx Renal Disorder: No - Endocrine/Metabolic Hx Endocrine Disorders: Yes Hx Diabetes Mellitus Type 2: Yes - Hematological/Oncological Hx Blood Disorders: No - Integumentary Hx Dermatological Disorder: No Other/Comment: cellulitis to the lower extremities since 08/23 - Musculoskeletal/Rheumatological Hx Musculoskeletal Disorders: Yes Hx Arthritis: Yes Hx Falls: No - Gastrointestinal Hx Gastrointestinal Disorders: Yes Hx Diverticulitis: Yes Hx Gastroesophageal Reflux: Yes Other/Comment: colitis - Genitourinary/Gynecological Hx Genitourinary Disorders: Yes Hx Incontinence: Yes (stress incontinece) Hx Urinary Tract Infection: Yes - Psychiatric Hx Psychophysiologic Disorder: Yes Hx Anxiety: Yes Hx Bipolar Disorder: Yes Hx Depression: Yes Hx Schizophrenia: Yes Hx Substance Use: No - Past Surgical History Past Surgical History: Non-Contributing - Surgical History Other/Comment: Colonoscopy. Endoscopy - Anesthesia Hx Anesthesia: Yes Hx Anesthesia Reactions: No - Suicidal Assessment Feels Threatened In Home Enviroment: No Family/Social History Family/Social History: Unknown Family HX Smoking Status: y Hx Alcohol Use: No Hx Substance Use: No Hx Substance Use Treatment: No Allergies/Home Meds Allergies/Adverse Reactions: Allergies amoxicillin [From Augmentin] Allergy (Verified 11/01/16 17:41) NAUSEA clarithromycin [From Biaxin] Allergy (Verified 11/01/16 17:41) RASH clavulanic acid [From Augmentin] Allergy (Verified 11/01/16 17:41) NAUSEA Home Medications: Home Meds Medication Instructions Recorded Confirmed Enalapril Maleate 10 mg PO DAILY 01/09/15 11/01/16 Pantoprazole Sodium [Protonix] 40 mg PO DAILY 08/25/16 11/01/16 [id number] CD [Cardizem CD] 340 mg PO DAILY 08/25/16 11/01/16 hydroCHLOROthiazide [Hydrodiuril] 25 mg PO DAILY 08/25/16 11/01/16 Insulin Detemir [Levemir] 0 units SC HS 09/22/16 11/01/16 Review of Systems - Physician Review All systems were reviewed & negative as marked: Yes - Review of Systems Skin: Cellulitis Physical Exam Vital Signs Reviewed: Yes Vital Signs Temp Pulse Resp BP Pulse Ox 11/23/16 19:48 98.8 F 78 18 108/66 98 Temperature: Afebrile Blood Pressure: Normal Pulse: Regular Respiratory Rate: Normal Appearance: Positive for: Well-Appearing, Non-Toxic, Comfortable Pain Distress: None Mental Status: Positive for: Alert and Oriented X 3 - Systems Exam Head: Present: Atraumatic, Normocephalic Pupils: Present: PERRL Extroacular Muscles: Present: EOMI Respiratory/Chest: Present: Clear to Auscultation, Good Air Exchange Cardiovascular: Present: Regular Rate and Rhythm, Normal S1, S2 Abdomen: Present: Normal Bowel Sounds. No: Tenderness Upper Extremity: Present: Normal Inspection. No: Cyanosis, Edema Lower Extremity: Present: CALF TENDERNESS (left), NORMAL PULSES, Normal ROM, Tenderness (left), Swelling (left), Erythema (left), Other (warmth, left) Neurological: Present: GCS=15, Speech Normal, Motor Func Grossly Intact, Normal Sensory Function Psychiatric: Present: Alert, Oriented x 3 Medical Decision Making ED Course and Treatment: 11/23/16 21:48 Labs are sent. Morhine 4 mg IVP. - Lab Interpretations Lab Results: 11/23/16 21:20 Lab Results 11/23/16 21:20: WBC 6.3 D, RBC 4.26, Hgb 12.7, Hct 37.6, MCV 88.3, MCH 29.8, MCHC 33.8, RDW 13.1, Plt Count 224, MPV 9.7, Gran % 60.2, Lymph % (Auto) 31.4, [place] % (Auto) 5.1, Eos % (Auto) 3.0, Baso % (Auto) 0.3, Gran # 3.78, Lymph # 2.0 , [place] # 0.3, Eos # 0.2, Baso # 0.02 - Transfer of Care Patient signed out to Dr:: Kenyatta Payne Pending Labs:: all labs Disposition/Present on Arrival - Present on Arrival Any Indicators Present on Arrival: No History of DVT/PE: No History of Uncontrolled Diabetes: No Urinary Catheter: No History of Decub. Ulcer: No History Surgical Site Infection Following: None - Disposition Have Diagnosis and Disposition been Completed?: No Diagnosis: Cellulitis Disposition Time: 22:00 Condition: STABLE Discharge Instructions (ExitCare): Cellulitis (ED) Referrals: Zana Mancera MD [Primary Care Provider] - Follow up with primary
--- NOTE | 2016-11-23 22:44 | ED PDOC ---
Physical Exam - Physical Exam Narrative Physical Exam (Text): 11/23/16 22:46 55yr old female with hx of DM presents today with b/l leg pain, swelling and redness x 2 days. pt states she was recently hospitalized for cellulitis of the legs. pt states redness has returned. no fever/chills. denies chest pain or shortness of breath. no vomiting/diarrhea. no dizziness or weakness. Vital Signs Reviewed: Yes Vital Signs Temp Pulse Resp BP Pulse Ox 11/23/16 19:48 98.8 F 78 18 108/66 98 Temperature: Afebrile Blood Pressure: Normal Pulse: Regular Respiratory Rate: Normal Appearance: Positive for: Well-Appearing, Non-Toxic, Comfortable Pain Distress: None Mental Status: Positive for: Alert and Oriented X 3 - Systems Exam Head: Present: Atraumatic Respiratory/Chest: Present: Clear to Auscultation Cardiovascular: Present: Regular Rate and Rhythm Lower Extremity: Present: Edema, Normal ROM, Tenderness (+ B/l lower leg edema with slight erythema noted to both lower extremities; left greater than right. sensation and distal pulses intact. cap refill <2. ), Swelling, Erythema, Neurovascularly Intact, Capillary Refill < 2 s. No: Deformity, Temperature Abnormalties Neurological: Present: GCS=15 Skin: Present: Warm, Dry Psychiatric: Present: Alert, Oriented x 3 Medical Decision Making ED Course and Treatment: 11/23/16 55yr old female with b/l lower leg erythema and edema. cbc; wnl cmp; glucose; 206 venous duplex of b/l lower extremities; no dvt verbal report from US tech. pt non toxic well appearing; no distress. vitals are stable. will d/c patient home with bactrim and keflex; pt states she is not allergic to PCN. pt states she she has taken keflex at home. pt states augmentin upsets the stomach. 11/23/16 23:55 I discussed all results in depth with the patient; i advised bactrim and keflex po. i advised f/u with pmd within the next 2 days. i advised immediate return if symptoms worsen,persist or if new symptoms develop. Patient verbalizes understanding of discharge instructions and need for immediate followup. all aspects of this case were discussed the attending of record. Impression: Cellulitis, leg bactrim; 1 tablet twice daily x 7 days keflex; 1 capsule once daily x 7 days increase fluids follow up with the primary care physician within the next 2 days return if symptoms worsen,persist or if new symptoms develop. - Lab Interpretations Lab Results: 11/23/16 21:20 11/23/16 21:20 Lab Results 11/23/16 21:20: Sodium 139, Potassium 4.5, Chloride 99, Carbon Dioxide 30, Anion Gap 15, BUN 15, Creatinine 0.8, Est GFR ( Amer) > 60, Est GFR (Non- Af Amer) > 60, Random Glucose 206 H, Calcium 9.2, Total Bilirubin 0.3, AST 12 L , ALT 23, Alkaline Phosphatase 76, Total Protein 6.4, Albumin 3.5, Globulin 2.8 , Albumin/Globulin Ratio 1.3 11/23/16 21:20: D-Dimer, Quantitative 0.50 11/23/16 21:20: WBC 6.3 D, RBC 4.26, Hgb 12.7, Hct 37.6, MCV 88.3, MCH 29.8, MCHC 33.8, RDW 13.1, Plt Count 224, MPV 9.7, Gran % 60.2, Lymph % (Auto) 31.4, [place] % (Auto) 5.1, Eos % (Auto) 3.0, Baso % (Auto) 0.3, Gran # 3.78, Lymph # 2.0 , [place] # 0.3, Eos # 0.2, Baso # 0.02 - RAD Interpretation Radiology Orders: 11/23/16 22:22 DUPLEX LOWER EXTRM VEIN BILAT [US] Stat - Medication Orders Current Medication Orders: Discontinued Medications Morphine Sulfate (Morphine) 4 mg IVP STAT STA Stop: 11/23/16 21:43 Last Admin: 11/23/16 21:43 Dose: 4 mg Disposition/Present on Arrival - Present on Arrival Any Indicators Present on Arrival: No History of DVT/PE: No History of Uncontrolled Diabetes: No Urinary Catheter: No History of Decub. Ulcer: No History Surgical Site Infection Following: None - Disposition Have Diagnosis and Disposition been Completed?: Yes Diagnosis: Cellulitis Disposition: HOME/ ROUTINE Disposition Time: 23:58 Patient Plan: Discharge Patient Problems: Current Active Problems Problem Status Onset Cellulitis Acute Condition: STABLE Discharge Instructions (ExitCare): Cellulitis (ED) Additional Instructions: bactrim; 1 tablet twice daily x 7 days keflex; 1 capsule once daily x 7 days increase fluids follow up with the primary care physician within the next 2 days return if symptoms worsen,persist or if new symptoms develop. Prescriptions: Cephalexin [Keflex] 500 mg PO QID #28 capsule Sulfamethoxazole/Trimethoprim [Bactrim DS 800 mg-160 mg] 1 tab PO BID #14 tab Referrals: Zana Mancera MD [Primary Care Provider] - Follow up with primary
[2016-11-23] MEDS ORDERED: Tmp-Smz 800 mg-160 mg DS Tab PO STA (23:59)
[2016-11-24 00:52] VITALS: BP 120/60; RESP 16; O2SAT 100
== END 2016-11-24 00:54 | disposition home or self-care (01) ==
LOC: ED 19:31
DX: L03.116 Cellulitis of left lower limb (principal); I10 Essential (primary) hypertension; E11.9 Type 2 diabetes mellitus without complications
CPT/HCPCS: 80053; 85025; 85378; 87040; 93970; 96374; 99284; J2270

== ENCOUNTER 2016-11-26 21:05 | Observation (INO) | payer OTHER ==
[2016-11-26 21:06] VITALS: BMI 47.2
--- NOTE | 2016-11-26 21:28 | ED PDOC ---
Arrival/HPI - General Time Seen by Provider: 11/26/16 21:20 Historian: Patient - History of Present Illness Narrative History of Present Illness (Text): 11/26/16 21:21 55 y/o female, pmh including htn/dm, allergic to penicilin and macrolides, was seen in the ER 3 days ago which she was on the keflex and bactrim ds as outpatient, stated that the bilateral calf redness is more worsened with left is more severe. Pt. stated that she has no fever or chills, painful to walk, last bilateral venuous doppler about 3 days ago with no acute DVT. Pt. stated that she has been taking the keflex and bactrim ds consistently with limited relief, no other medical or psychological complaints. Past Medical History - Provider Review Nursing Documentation Reviewed: Yes - Past History Past History: Non-Contributing - Infectious Disease Hx of Infectious Diseases: None - Tetanus Immunization Tetanus Immunization: Unknown - Past Medical History Past Medical History: Non-Contributing - Cardiac Hx Cardiac Disorders: Yes Hx Hypertension: Yes - Pulmonary Hx Respiratory Disorders: Yes Hx Pneumonia: Yes - Neurological Hx Neurological Disorder: No - HEENT Hx HEENT Disorder: No - Renal Hx Renal Disorder: No - Endocrine/Metabolic Hx Endocrine Disorders: Yes Hx Diabetes Mellitus Type 2: Yes - Hematological/Oncological Hx Blood Disorders: No - Integumentary Hx Dermatological Disorder: No Other/Comment: cellulitis to the lower extremities since 08/23 - Musculoskeletal/Rheumatological Hx Musculoskeletal Disorders: Yes Hx Arthritis: Yes Hx Falls: No - Gastrointestinal Hx Gastrointestinal Disorders: Yes Hx Diverticulitis: Yes Hx Gastroesophageal Reflux: Yes Other/Comment: colitis - Genitourinary/Gynecological Hx Genitourinary Disorders: Yes Hx Incontinence: Yes (stress incontinece) Hx Urinary Tract Infection: Yes - Psychiatric Hx Psychophysiologic Disorder: Yes Hx Anxiety: Yes Hx Bipolar Disorder: Yes Hx Depression: Yes Hx Schizophrenia: Yes Hx Substance Use: No - Past Surgical History Past Surgical History: Non-Contributing - Surgical History Other/Comment: Colonoscopy. Endoscopy - Anesthesia Hx Anesthesia: Yes Hx Anesthesia Reactions: No - Suicidal Assessment Feels Threatened In Home Enviroment: No Family/Social History - Physician Review Nursing Documentation Reviewed: Yes Family/Social History: Unknown Family HX Smoking Status: y Hx Alcohol Use: No Hx Substance Use: No Hx Substance Use Treatment: No Allergies/Home Meds Allergies/Adverse Reactions: Allergies amoxicillin [From Augmentin] Allergy (Verified 11/26/16 21:22) NAUSEA clarithromycin [From Biaxin] Allergy (Verified 11/26/16 21:22) RASH clavulanic acid [From Augmentin] Allergy (Verified 11/26/16 21:22) NAUSEA Home Medications: Home Meds Medication Instructions Recorded Confirmed Enalapril Maleate 10 mg PO DAILY 01/09/15 11/26/16 Pantoprazole Sodium [Protonix] 40 mg PO DAILY 08/25/16 11/26/16 [id number] CD [Cardizem CD] 340 mg PO DAILY 08/25/16 11/26/16 Insulin Detemir [Levemir] 0 units SC HS 09/22/16 11/26/16 Review of Systems - Review of Systems Constitutional: absent: Fatigue, Fevers Eyes: absent: Vision Changes ENT: absent: Hearing Changes Respiratory: absent: SOB, Cough Cardiovascular: absent: Chest Pain Gastrointestinal: absent: Abdominal Pain, Nausea, Vomiting Skin: Rash, Cellulitis. absent: Pruritis, Skin Lesions, Laceration, Ulcer Neurological: absent: Headache, Dizziness, Facial Droop Physical Exam Vital Signs Reviewed: Yes Vital Signs Temp Pulse Resp BP Pulse Ox 11/27/16 00:33 88 18 131/74 96 11/26/16 21:56 97.8 F 11/26/16 21:28 99 H 16 124/69 97 Temperature: Afebrile Blood Pressure: Normal Pulse: Regular Respiratory Rate: Normal Appearance: Positive for: Well-Appearing, Non-Toxic, Comfortable Pain Distress: None Mental Status: Positive for: Alert and Oriented X 3 - Systems Exam Head: Present: Atraumatic, Normocephalic Pupils: Present: PERRL Extroacular Muscles: Present: EOMI Conjunctiva: Present: Normal Mouth: Present: Moist Mucous Membranes Neck: Present: Normal Range of Motion Respiratory/Chest: Present: Clear to Auscultation, Good Air Exchange. No: Respiratory Distress, Accessory Muscle Use Cardiovascular: Present: Regular Rate and Rhythm, Normal S1, S2, Other (2+ pedal edema noted bilaterally on the bilateral anterior byrd). No: Murmurs Abdomen: Present: Normal Bowel Sounds. No: Tenderness, Distention, Peritoneal Signs, Rebound, Guarding Back: Present: Normal Inspection Upper Extremity: Present: Normal Inspection. No: Cyanosis, Edema Lower Extremity: Present: Normal Inspection, NORMAL PULSES, Normal ROM, Neurovascularly Intact, Capillary Refill < 2 s. No: Edema, CALF TENDERNESS Neurological: Present: GCS=15, Speech Normal, Motor Func Grossly Intact, Memory Normal Skin: Present: Warm, Dry, Rashes (bilateral tibial/fibula region with visible erythematous and warmth to touch on the bilateral tibial/fibular with left worsened. ), Normal Color Psychiatric: Present: Alert, Oriented x 3, Normal Insight, Normal Concentration Medical Decision Making ED Course and Treatment: 11/26/16 21:29 -labs/blood culture -ekg/chest xray -IV vancomycin/meropenam/toradol/benadryl -will admit the patient for fail outpatient antibiotic. 11/26/16 23:42 -Labs are non-significant but due to the extensive of the cellulitis and fail outpatient po antibiotics, will admit for IV antibiotics. -EKG show NSR @ 88 BPM, no ST elevation or depression, no T wave inversion, compared with previous ekg. -Chest xray show mildly enlarged heart with normal BNP -Bilateral lower extremities 3 days ago show no acute DVT -I discussed with Dr. Serrano and Dr. Alamo about the case along with the director global medical affairs, they all agreed to admit the patient for IV antibiotics. -Dr. Serrano will put in the admission order. - Lab Interpretations Microbiology Results: Microbiology Results 11/26/16 22:50 Blood-Venous Blood Culture - Preliminary NO GROWTH AFTER 3 DAYS 11/26/16 21:55 Blood-Venous Blood Culture - Preliminary NO GROWTH AFTER 3 DAYS Lab Results: 11/27/16 06:55 11/26/16 21:55 Lab Results 11/28/16 07:22: POC Glucose (mg/dL) 195 H 11/27/16 21:30: POC Glucose (mg/dL) 228 H 11/27/16 15:57: POC Glucose (mg/dL) 252 H 11/27/16 11:48: POC Glucose (mg/dL) 181 H 11/27/16 08:02: POC Glucose (mg/dL) 205 H 11/27/16 06:55: WBC 5.3, RBC 4.24, Hgb 12.2, Hct 36.6, MCV 86.3, MCH 28.8, MCHC 33.3, RDW 13.4, Plt Count 198, MPV 9.6, Neutrophils % (Manual) 59, Band Neutrophils % 1, Lymphocytes % (Manual) 33, Monocytes % (Manual) 1, Eosinophils % (Manual) 6 H, Platelet Evaluation Normal 11/27/16 04:00: APTT 30.8 11/26/16 21:55: Sodium 136, Potassium 4.5, Chloride 100, Carbon Dioxide 29, Anion Gap 12, BUN 14, Creatinine 0.9, Est GFR ( Amer) > 60, Est GFR (Non- Af Amer) > 60, Random Glucose 223 H, Calcium 9.2, Total Bilirubin 0.4, AST 20, ALT 26, Alkaline Phosphatase 78, NT-Pro-B Natriuret Pep 90.9, Total Protein 7.0 , Albumin 3.7, Globulin 3.3, Albumin/Globulin Ratio 1.1 11/26/16 21:55: WBC 5.5, RBC 4.10, Hgb 12.0, Hct 35.4 L, MCV 86.3, MCH 29.3, MCHC 33.9, RDW 13.1, Plt Count 203, MPV 9.4, Gran % 67.7, Lymph % (Auto) 22.8, Mathews % (Auto) 5.8, Eos % (Auto) 3.5, Baso % (Auto) 0.2, Gran # 3.71, Lymph # 1.3 , Mathews # 0.3, Eos # 0.2, Baso # 0.01 I have reviewed the lab results: Yes Interpretation: No clinic. lab abnormalty - RAD Interpretation Radiology Orders: 11/26/16 21:30 CHEST PORTABLE [RAD] Stat 11/27/16 00:34 DUPLEX LOWER EXTRM VEIN BILAT [US] Stat no active infiltrate Bilateral lower venuous doppler:as per preliminary report, no acute DVT. Visitor Services Associate: Radiologist - EKG Interpretation EKG Interpretation (Text): 11/27/16 00:21 NSR @ 88 BPM, no ST elevation or depression, no T wave inversion, compared with previous ekg. Interpreted by ED Physician: Yes Type: 12 lead EKG Comparison: Com.w/previous EKG - Medication Orders Current Medication Orders: Discontinued Medications Acetaminophen (Tylenol 325mg Tab) 650 mg PO Q6H PRN PRN Reason: Fever >100.4 F Alprazolam (Xanax) 1 mg PO TID PRN; Protocol PRN Reason: Anxiety Last Admin: 11/28/16 20:09 Dose: 1 mg Amitriptyline HCl (Elavil) 100 mg PO HS [facility]A Last Admin: 11/28/16 21:49 Dose: 100 mg Diltiazem HCl (Cardizem Cd) 340 mg PO DAILY [facility] Diltiazem HCl (Cardizem Cd) 240 mg PO DAILY [facility] Diltiazem HCl (Cardizem Cd) 240 mg PO DAILY [facility] Last Admin: 11/29/16 09:07 Dose: 240 mg Diphenhydramine HCl (Benadryl) 50 mg IVP STAT STA Stop: 11/26/16 21:31 Last Admin: 11/26/16 21:57 Dose: 50 mg Divalproex Sodium (Depakote Dr(*Bid*)) 1,000 mg PO HS HOA Divalproex Sodium (Depakote Er(Once Daily)) 1,000 mg PO HS [facility]A Last Admin: 11/28/16 21:48 Dose: 1,000 mg Famotidine (Pepcid) 20 mg PO 1000,2200 [facility] Last Admin: 11/29/16 09:10 Dose: 20 mg Furosemide (Lasix) 20 mg PO DAILY [facility] Furosemide (Lasix) 40 mg PO DAILY [facility] Last Admin: 11/29/16 09:10 Dose: 40 mg Heparin Sodium (Porcine) (Heparin) 5,000 units SC Q8 [facility] PRN Reason: Protocol Last Admin: 11/28/16 21:50 Dose: 5,000 units Hydrochlorothiazide (Hydrodiuril) 25 mg PO DAILY [facility] Last Admin: 11/29/16 09:09 Dose: 25 mg Vancomycin HCl (Vancomycin 1gm) 1 gm in 250 mls @ 167 mls/hr IVPB STAT STA PRN Reason: Protocol Stop: 11/26/16 22:59 Last Admin: 11/26/16 21:58 Dose: 167 mls/hr Meropenem 1g/NS 100mL IVPB (Meropenem 1g/Ns 100ml Ivpb) 1 gm in 100 mls @ 100 mls/hr IVPB STAT STA PRN Reason: Protocol Stop: 11/26/16 22:31 Last Admin: 11/26/16 23:26 Dose: 100 mls/hr Ceftriaxone Sodium (Rocephin 1 Gram Ivpb) 1 gm in 100 mls @ 100 mls/hr IVPB DAILY [facility] PRN Reason: Protocol Last Admin: 11/27/16 09:35 Dose: 100 mls/hr Sodium Chloride (Sodium Chloride 0.9%) 1,000 mls @ 100 mls/hr IV .Q10H [facility] Last Admin: 11/28/16 03:47 Dose: 100 mls/hr Vancomycin HCl (Vancomycin 1gm) 1 gm in 250 mls @ 167 mls/hr IVPB Q12H [facility] PRN Reason: Protocol Last Admin: 11/27/16 01:06 Dose: Vancomycin HCl (Vancomycin 1gm) 1 gm in 250 mls @ 167 mls/hr IVPB Q12 [facility] PRN Reason: Protocol Last Admin: 11/29/16 09:13 Dose: 167 mls/hr Insulin Detemir (Levemir) 25 unit SC HS [facility] Last Admin: 11/28/16 21:53 Dose: 25 unit Insulin Human Regular (Humulin R Low) 0 units SC ACHS [facility] PRN Reason: Protocol Last Admin: 11/29/16 12:31 Dose: 2 units Ketorolac Tromethamine (Toradol) 30 mg IVP STAT STA Stop: 11/26/16 21:31 Last Admin: 11/26/16 21:57 Dose: 30 mg Re-Assess: [facility] Pain Assessment Document 11/26/16 22:57 MB (Rec: 11/27/16 06:52 MB [id number]) Pain Reassessment Is this a pain reassessment? Yes Sleep Is patient sleeping during reassessment? Yes Lisinopril (Zestril) 10 mg PO DAILY [facility] Last Admin: 11/29/16 09:09 Dose: 10 mg Ondansetron HCl (Zofran Inj) 4 mg IVP Q4H PRN PRN Reason: Nausea/Vomiting Oxycodone/Acetaminophen (Percocet 5/325 Mg Tab) 1 tab PO Q4H PRN PRN Reason: Pain, moderate (4-7) Stop: 11/30/16 09:02 Last Admin: 11/29/16 09:18 Dose: 1 tab Re-Assess: [facility] Pain Assessment Document 11/29/16 10:18 [facility] (Rec: 11/29/16 11:39 [place] [id number]) Pain Reassessment Is this a pain reassessment? Yes Sleep Is patient sleeping during reassessment? 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 Disposition/Present on Arrival - Present on Arrival Any Indicators Present on Arrival: No History of DVT/PE: No History of Uncontrolled Diabetes: No Urinary Catheter: No History of Decub. Ulcer: No History Surgical Site Infection Following: None - Disposition Have Diagnosis and Disposition been Completed?: Yes Diagnosis: Cellulitis Disposition: HOSPITALIZED Disposition Time: 21:30 Patient Plan: Admission Condition: STABLE
[2016-11-26] MEDS ORDERED: DiphenhydrAMINE 50 mg/ml Inj IVP STA (21:30)
[2016-11-26] MEDS ORDERED: Vancomycin 1gm in NS 250ml 1 GM/250 ML BAG IVPB STA (21:30)
[2016-11-26] MEDS ORDERED: Meropenem 1g/NS 100mL IVPB 1 GM/100 ML PIGGYBACK IVPB STA (21:32)
[2016-11-26 21:59] LABS: BASO # 0.01 K/mm3 (0.0-2.0); BASO % 0.2 % (0.0-3.0); EOS # 0.2 (0.0-0.7); EOS % 3.5 % (1.5-5.0); GRAN # 3.71 (1.4-6.5); GRAN % 67.7 % (50.0-68.0); LYMPH # 1.3 (1.2-3.4); LYMPH % 22.8 % (22.0-35.0); MEAN CELL VOLUME 86.3 fL (80.0-105.0); MEAN CORPUSCULAR HEMOGLOBIN 29.3 pg (25.0-35.0); MEAN CORPUSCULAR HGB CONC 33.9 g/dl (31.0-37.0); MEAN PLATELET VOLUME 9.4 fl (7.0-11.0); MONO # 0.3 (0.1-0.6); MONO % 5.8 % (1.0-6.0); PLATELET COUNT 203 10^3/uL (120.0-450.0); RED CELL DISTRIBUTION WIDTH 13.1 % (11.5-14.5); WHITE BLOOD COUNT 5.5 10^3/ul (4.5-11.0)
[2016-11-26 22:10] LABS: ALB/GLOB RATIO 1.1 (1.1-1.8); ALBUMIN 3.7 g/dL (3.0-4.8); ALT/SGPT 26 U/L (7-56); AST/SGOT 20 U/L (15-39); BLOOD UREA NITROGEN 14 mg/dL (7-21); CALCIUM 9.2 mg/dL (8.4-10.5); GFR AFRICAN-AMERICAN > 60; GFR NON-AFRICAN AMERICAN > 60
[2016-11-26 22:18] LABS: B-TYPE NATRIURETIC PEPTIDE 90.9 pg/mL (0-450)
[2016-11-27] MEDS ORDERED: Vancomycin 1gm in NS 250ml 1 GM/250 ML BAG IVPB SCH (00:30)
[2016-11-27] MEDS: Sodium Chloride 0.9% 1,000 ML IV SCH ×2 (01:06→12:13)
--- NOTE | 2016-11-27 05:59 | CP.PCM.HP ---
<CLAUDINE FU - Last Filed: 11/27/16 06:43> History of Present Illness - History of Present Illness History of Present Illness: 55 year old female PMH HTN and DM presents to the [facility] ED on 11/26/16 with complaints of bilateral leg pain and swelling for which she was seen 3 days prior and prescribed keflex and bactrim for outpatient treatment of cellulitis. Patient states that she is feeling more pain in her left leg in comparison to the right. She states that the pain is worsened with walking but has still been trying to move around as much as she can. Patient states that she was instructed previously to take the antibiotics for 7 days but stopped after 4 days. Patient denies shortness of breath, chest pain, n/v/d, cough, hemoptysis. PMD:Dr. Mancera PMH: DM, HTN PSH: non-contributory SH: denies tobacco, alcohol, and illict drug use Allergies:amoxicillin, clarithromycin, clavulanic acid Present on Admission - Present on Admission Any Indicators Present on Admission: No Review of Systems - Constitutional Constitutional: As Per HPI, Anorexia, Chills. absent: Headache - Cardiovascular Cardiovascular: Leg Edema. absent: Chest Pain, Dyspnea, Lightheadedness - Respiratory Respiratory: absent: Cough, Dyspnea, Hemoptysis, Wheezing - Gastrointestinal Gastrointestinal: absent: Abdominal Pain, Nausea, Vomiting - Neurological Neurological: absent: Dizziness, Numbness, Headaches, Tingling Past Patient History - Infectious Disease Hx of Infectious Diseases: None - Tetanus Immunizations Tetanus Immunization: Unknown - Past Medical History & Family History Past Medical History?: Yes - Past Social History Smoking Status: y - CARDIAC Hx Cardiac Disorders: Yes Hx Hypertension: Yes - PULMONARY Hx Respiratory Disorders: Yes Hx Pneumonia: Yes - NEUROLOGICAL Hx Neurological Disorder: No - HEENT Hx HEENT Problems: No - RENAL Hx Chronic Kidney Disease: No - ENDOCRINE/METABOLIC Hx Endocrine Disorders: Yes Hx Diabetes Mellitus Type 2: Yes - HEMATOLOGICAL/ONCOLOGICAL Hx Blood Disorders: No - INTEGUMENTARY Hx Dermatological Problems: No Other/Comment: cellulitis to the lower extremities since 08/23 - MUSCULOSKELETAL/RHEUMATOLOGICAL Hx Musculoskeletal Disorders: Yes Hx Arthritis: Yes Hx Falls: No - GASTROINTESTINAL Hx Gastrointestinal Disorders: Yes Hx Diverticulitis: Yes Hx Gastroesophageal Reflux: Yes Other/Comment: colitis - GENITOURINARY/GYNECOLOGICAL Hx Genitourinary Disorders: Yes Hx Incontinence: Yes (stress incontinece) Hx Urinary Tract Infection: Yes - PSYCHIATRIC Hx Psychophysiologic Disorder: Yes Hx Anxiety: Yes Hx Bipolar Disorder: Yes Hx Depression: Yes Hx Schizophrenia: Yes Hx Substance Use: No - SURGICAL HISTORY Other/Comment: Colonoscopy. Endoscopy - ANESTHESIA Hx Anesthesia: Yes Hx Anesthesia Reactions: No Meds Allergies/Adverse Reactions: Allergies Allergy/AdvReac Type Severity Reaction Status Date / Time amoxicillin [From Augmentin] Allergy NAUSEA Verified 11/26/16 21:22 clarithromycin [From Biaxin] Allergy RASH Verified 11/26/16 21:22 clavulanic acid Allergy NAUSEA Verified 11/26/16 21:22 [From Augmentin] Physical Exam - Constitutional Appears: Well - Head Exam Head Exam: ATRAUMATIC, NORMAL INSPECTION, NORMOCEPHALIC - Eye Exam Eye Exam: EOMI, Normal appearance - ENT Exam ENT Exam: Mucous Membranes Moist, Normal Exam - Neck Exam Neck exam: Positive for: Normal Inspection - Respiratory Exam Respiratory Exam: Clear to Auscultation Bilateral, NORMAL BREATHING PATTERN. absent: Rales, Rhonchi, Wheezes - Cardiovascular Exam Cardiovascular Exam: REGULAR RHYTHM, RRR, +S1, +S2 - GI/Abdominal Exam GI & Abdominal Exam: Normal Bowel Sounds, Soft - Extremities Exam Extremities exam: Positive for: calf tenderness, pedal edema, pedal pulses present - Neurological Exam Neurological exam: Alert, Oriented x3 - Skin Skin Exam: Erythema, Warm Results - Vital Signs Recent Vital Signs: Last Vital Signs Temp 97.8 F 11/26/16 21:56 Pulse 88 11/27/16 00:33 Resp 18 11/27/16 00:33 BP 131/74 11/27/16 00:33 Pulse Ox 96 11/27/16 00:33 - Labs Result Diagrams: 11/26/16 21:55 11/26/16 21:55 Labs: Laboratory Results - last 24 hr 11/27/16 04:00 APTT 30.8 Assessment & Plan - Assessment and Plan (Free Text) Assessment: 1. Cellulitis Plan: 1. Cellulitis - Continue with 1 gm IV Vancomycin and 1 gm IV Rocephin - Blood cultures pending - LE dopplers to r/o DVT - Consult ID, will follow through with recommendations 2. DM II -Glucose 223 upon being admitted -Insulin- sliding scale moderate. Will hold home meds. - Fingerstick q 6h 3. HTN - Continue with HTN medication regimen: Lisinopril 10 mg PO qD, HCTZ 25 mg PO qD , Lasix 20 mg PO qD, cardizem 340 mg PO qD DVT/GI prophylaxis- Heparin 5000 IU SC q8 and Pepcid 20 mg BID <Bradley Alamo MD - Last Filed: 11/27/16 08:07> Results - Vital Signs Recent Vital Signs: Last Vital Signs Temp 97.8 F 11/26/16 21:56 Pulse 92 H 11/27/16 01:52 Resp 20 11/27/16 01:52 BP 147/85 11/27/16 01:52 Pulse Ox 96 11/27/16 00:33 - Labs Result Diagrams: 11/26/16 21:55 11/26/16 21:55 Labs: Laboratory Results - last 24 hr 11/27/16 04:00 APTT 30.8 Attending/Attestation - Attestation I have personally seen and examined this patient.: Yes I have fully participated in the care of the patient.: Yes I have reviewed all pertinent clinical information: Yes Notes (Text): 11/27/16 08:06 -I agree with the above H&P completed by the resident physician.
[2016-11-27 08:03] LABS: HEMOGLOBIN 12.2 gm/dL (12.0-16.0); MEAN CELL VOLUME 86.3 fL (80.0-105.0); MEAN CORPUSCULAR HEMOGLOBIN 28.8 pg (25.0-35.0); MEAN CORPUSCULAR HGB CONC 33.3 g/dl (31.0-37.0); MEAN PLATELET VOLUME 9.6 fl (7.0-11.0); PLATELET COUNT 198 10^3/uL (120.0-450.0); RBC 4.24 10^6/uL (3.5-6.1); RED CELL DISTRIBUTION WIDTH 13.4 % (11.5-14.5); WHITE BLOOD COUNT 5.3 10^3/ul (4.5-11.0)
[2016-11-27] MEDS: Insulin Reg-LOW-Coverage SC SCH ×4 (08:31→21:31)
[2016-11-27] MEDS: diltiaZEM 240 mg/24 Hours CD Cap PO SCH (09:33)
[2016-11-27] MEDS: Pantoprazole 40 mg EC Tab PO SCH (09:35)
[2016-11-27] MEDS: Oxycodone/Acetaminophen 5/325 mg Tab PO PRN ×3 (09:38→18:34)
[2016-11-27] MEDS ORDERED: cefTRIAXone 1 gm 1 GM/100 ML BAG IVPB SCH (10:00)
[2016-11-27] MEDS ORDERED: diltiaZEM 180 mg/24 Hours CD Cap PO SCH ×2 (10:00)
[2016-11-27 10:10] LABS: BAND 1 % (0-2); EOSINOPHIL 6 % (0.0-3.0); LYMPHOCYTE 33 % (22.0-35.0); MONOCYTE 1 % (1.0-6.0); NEUTROPHIL 59 % (50.0-70.0); PLATELET ESTIMATE NORMAL (NORMAL)
[2016-11-27] MEDS: Vancomycin 1gm in NS 250ml 1 GM/250 ML BAG IVPB SCH ×2 (11:26→21:39)
--- NOTE | 2016-11-27 11:54 | RAD ---
HISTORY: medical clearance COMPARISON: No prior. FINDINGS: LUNGS: Examination limited due to oblique positioning and body habitus. No acute infiltrate. PLEURA: No evidence of pleural effusion. Left costophrenic angle is obscured. CARDIOVASCULAR: Grossly normal. Limited due to oblique positioning. There is mild congestive change noted. OSSEOUS STRUCTURES: No significant abnormalities. VISUALIZED UPPER ABDOMEN: Normal. OTHER FINDINGS: None. IMPRESSION: No acute infiltrate. Mild congestive change. Limited examination.
--- NOTE | 2016-11-27 20:48 | CARD ---
APPROVED REPORT EKG Measurement Heart [id number] <Conclusion> Normal sinus rhythm Normal ECG
[2016-11-27] MEDS: Divalproex 500 mg ER (ONCE DAILY formulation) PO SCH (21:34)
--- NOTE | 2016-11-27 21:53 | CON ---
DATE: 11/27/2016 LOCATION: The patient seen in bed, room 565, bed 2. CHIEF COMPLAINT: Left leg erythema, times several days. HISTORY OF PRESENT ILLNESS: This is a 55-year-old female known to me from previous admission. The patient was recently in the hospital. She has a history significant for morbid obesity, BMI of 47 and history of diverticulitis, history of GERD, depression, hypertension, coronary artery disease, and diabetes mellitus with past surgical history of also being bipolar and anxiety and who has had colonoscopy, endoscopy, tonsillectomy in the past who is allergic to amoxicillin, clarithromycin and Augmentin. MEDICATIONS: She is given p.o Bactrim and p.o Keflex for her leg as an outpatient without any improvement, now admitted with erythema of the left leg. REVIEW OF SYSTEMS: Reveals of the patient's complain of generalized aches and pains. No nausea or vomiting. No chest pain. No abdominal pain or diarrhea. PAST MEDICAL HISTORY: Significant for morbid obesity, BMI of *------*, diverticulitis, GERD, depression, anxiety, bipolar, hypertension, coronary artery diseases, and diabetics. PAST SURGICAL HISTORY: Significant for colonoscopy, and tonsillectomy. ALLERGIES: THE PATIENT'S ALLERGIC TO CLINDAMYCIN, AMOXICILLIN AND CLAVULANIC ACID. PHYSICAL EXAMINATION GENERAL: The patient is in bed. VITAL SIGNS: Temperature of 98, heart rate of 92 to 98, blood pressure is 147/80, and respiratory rate of 20. HEENT: Unremarkable. NECK: Supple. LUNGS: Decreased breath sounds. HEART: Normal S1 and S2. ABDOMEN: Soft and nontender. EXTREMITIES: Leg reveals the patient has a erythema of the left leg. LABORATORY DATA: Reveals a white count of 5.5, hemoglobin of 12 and platelets of 203. Chemistries reveals the BUN of 14 and creatinine of 0.9. History and physical examination is reviewed in emergency room, chart has reviewed. ASSESSMENT AND PLAN: This is 55-year-old female with morbid obesity with body mass index of 47, diverticulitis and gastroesophageal reflux disease, depression, anxiety, bipolar, hypertension, coronary artery diseases, diabetes mellitus, who had an outpatient treatment on Keflex and Bactrim and also the patient an ultrasound of the lower extremity on in the emergency room, which was negative for deep vein thrombosis, and now presents with a left leg cellulitis,and warm to touch. No break in her skin. Pulses are good; however, it does appear cellulitic, we will treat the patient with vancomycin and we will follow clinically and we will also check on the cultures and will make further recommendations. Michael Wells MD
[2016-11-27] MEDS ORDERED: Divalproex 500 mg DR(BID formulation) PO SCH (22:00)
[2016-11-28] MEDS: Sodium Chloride 0.9% 1,000 ML IV SCH (03:47)
[2016-11-28 07:55] VITALS: RESP 18
[2016-11-28] MEDS: Insulin Reg-LOW-Coverage SC SCH ×4 (07:58→21:51)
[2016-11-28] MEDS: Oxycodone/Acetaminophen 5/325 mg Tab PO PRN ×3 (08:00→18:30)
[2016-11-28 09:04] LABS: BASO # 0.01 K/mm3 (0.0-2.0); BASO % 0.2 % (0.0-3.0); EOS # 0.2 (0.0-0.7); EOS % 3.9 % (1.5-5.0); GRAN # 2.65 (1.4-6.5); GRAN % 64.7 % (50.0-68.0); HEMOGLOBIN 11.6 gm/dL (12.0-16.0); LYMPH % 24.9 % (22.0-35.0); MEAN CELL VOLUME 85.3 fL (80.0-105.0); MEAN PLATELET VOLUME 9.1 fl (7.0-11.0); MONO # 0.3 (0.1-0.6); MONO % 6.3 % (1.0-6.0); PLATELET COUNT 160 10^3/uL (120.0-450.0); WHITE BLOOD COUNT 4.1 10^3/ul (4.5-11.0)
[2016-11-28 09:12] LABS: BLOOD UREA NITROGEN 10 mg/dL (7-21); GFR AFRICAN-AMERICAN > 60; GFR NON-AFRICAN AMERICAN > 60
[2016-11-28 09:13] LABS: ALB/GLOB RATIO 1.1 (1.1-1.8); ALBUMIN 3.2 g/dL (3.0-4.8); ALT/SGPT 23 U/L (7-56); AST/SGOT 15 U/L (15-39); CALCIUM 8.6 mg/dL (8.4-10.5)
[2016-11-28] MEDS: diltiaZEM 240 mg/24 Hours CD Cap PO SCH (09:52)
[2016-11-28] MEDS: Vancomycin 1gm in NS 250ml 1 GM/250 ML BAG IVPB SCH ×2 (09:54→21:53)
[2016-11-28] MEDS: Pantoprazole 40 mg EC Tab PO SCH (09:54)
[2016-11-28] MEDS ORDERED: Enoxaparin 40 mg Syringe SC SCH (11:45)
--- NOTE | 2016-11-28 12:21 | PN ---
DATE: 11/28/2016 SUBJECTIVE: The patient seen on bed in no acute distress, nontoxic. No fever. PHYSICAL EXAMINATION VITAL SIGNS: Temperature is 98, blood pressure 150/90, respiratory rate of 20 and heart rate of 80. HEENT: Unremarkable. NECK: Supple. LUNGS: Decreased breath sounds. HEART: Normal S1, S2. ABDOMEN: Soft, nontender. LABORATORY DATA: Reveals a white count of 4.1, hemoglobin of 11, platelets of 160,000 and coagulation is noted and chemistries reveals the BUN of 10, creatinine of 0.7. Microbiology reveals the blood cultures have no growth. ASSESSMENT AND PLAN: This is a 55-year-old female with morbid obesity, BMI of 47, history of diverticulitis and gastroesophageal reflux disease, depression, anxiety, bipolar, hypertension, coronary artery disease, and diabetes who was treated as an outpatient with Keflex and Bactrim and had an ultrasound as an outpatient, which was negative for deep venous thrombosis, now admitted with left leg cellulitis. This morning, her leg is much, much, much improved. Erythema is resolving. Currently, on vancomycin and completed short course of antibiotics. May be able to switch to p.o. to complete therapy, may use p.o. doxycycline 100 mg p.o. b.i.d. x5 days total. Michael Wells MD
--- NOTE | 2016-11-28 14:25 | CP.PCM.PN ---
<ALIE CRAFT - Last Filed: 11/28/16 16:00> Subjective - Date & Time of Evaluation Date of Evaluation: 11/28/16 Time of Evaluation: 10:30 - Subjective Subjective: Medicine Progress Note: Pt was seen and assessed at bedside. Pt had no new complaints this morning but did make medicine team aware that she normally takes xanax 1mg TID at home, which she is currently not receiving. Pt would like this to be started. Pt denies headache, changes in vision, fever, shortness of breath, chest pain, palpitations, abdominal pain, or N/V/D. Objective - Vital Signs/Intake and Output Vital Signs (last 24 hours): Temp Pulse Resp BP Pulse Ox 98 F 87 18 152/93 H 95 11/28/16 07:54 11/28/16 09:55 11/28/16 07:54 11/28/16 09:55 11/28/16 07:54 - Medications Medications: Current Medications Acetaminophen (Tylenol 325mg Tab) 650 mg PO Q6H PRN PRN Reason: Fever >100.4 F Alprazolam (Xanax) 1 mg PO TID PRN; Protocol PRN Reason: Anxiety Last Admin: 11/28/16 09:55 Dose: 1 mg Amitriptyline HCl (Elavil) 100 mg PO HS [facility] Last Admin: 11/27/16 21:31 Dose: 100 mg Diltiazem HCl (Cardizem Cd) 240 mg PO DAILY [facility] Last Admin: 11/28/16 09:52 Dose: 240 mg Divalproex Sodium (Depakote Er(Once Daily)) 1,000 mg PO HS [facility] Last Admin: 11/27/16 21:34 Dose: 1,000 mg Famotidine (Pepcid) 20 mg PO 1000,2200 [facility] Last Admin: 11/28/16 09:54 Dose: 20 mg Furosemide (Lasix) 40 mg PO DAILY [facility] Last Admin: 11/28/16 09:53 Dose: 40 mg Heparin Sodium (Porcine) (Heparin) 5,000 units SC Q8 [facility] PRN Reason: Protocol Last Admin: 11/28/16 13:11 Dose: 5,000 units Hydrochlorothiazide (Hydrodiuril) 25 mg PO DAILY [facility] Last Admin: 11/28/16 09:52 Dose: 25 mg Vancomycin HCl (Vancomycin 1gm) 1 gm in 250 mls @ 167 mls/hr IVPB Q12 [facility] PRN Reason: Protocol Last Admin: 11/28/16 09:54 Dose: 167 mls/hr Insulin Human Regular (Humulin R Low) 0 units SC ACHS [facility] PRN Reason: Protocol Last Admin: 11/28/16 12:18 Dose: 3 units Lisinopril (Zestril) 10 mg PO DAILY [facility] Last Admin: 11/28/16 09:55 Dose: 10 mg Ondansetron HCl (Zofran Inj) 4 mg IVP Q4H PRN PRN Reason: Nausea/Vomiting Oxycodone/Acetaminophen (Percocet 5/325 Mg Tab) 1 tab PO Q4H PRN PRN Reason: Pain, moderate (4-7) Stop: 11/30/16 09:02 Last Admin: 11/28/16 13:11 Dose: 1 tab Pantoprazole Sodium (Protonix Ec Tab) 40 mg PO DAILY [facility] Last Admin: 11/28/16 09:54 Dose: 40 mg Ziprasidone (Geodon Cap) 80 mg PO HS [facility] PRN Reason: Protocol Last Admin: 11/27/16 21:39 Dose: 80 mg - Labs Labs: 11/28/16 08:40 11/28/16 08:40 APTT 30.8 Seconds (23.7-30.8) 11/27/16 04:00 - Constitutional Appears: No Acute Distress - Head Exam Head Exam: NORMAL INSPECTION, NORMOCEPHALIC - Eye Exam Eye Exam: EOMI, Normal appearance - ENT Exam ENT Exam: Mucous Membranes Moist, Normal Exam - Neck Exam Neck Exam: Full ROM. absent: Lymphadenopathy - Respiratory Exam Respiratory Exam: Clear to Ausculation Bilateral, NORMAL BREATHING PATTERN. absent: Rales, Rhonchi, Wheezes, Respiratory Distress, Stridor - Cardiovascular Exam Cardiovascular Exam: REGULAR RHYTHM, RRR, +S1, +S2. absent: Bradycardia, Tachycardia, Murmur - GI/Abdominal Exam GI & Abdominal Exam: Soft, Normal Bowel Sounds. absent: Distended, Firm, Guarding, Tenderness - Extremities Exam Extremities Exam: Calf Tenderness, Joint Swelling, Normal Capillary Refill, Pedal Edema Additional comments: Erythema, edema bilaterally (more significant on left lower extremity) extending from ankle distally to knee - Neurological Exam Neurological Exam: Alert, Awake, Oriented x3 - Psychiatric Exam Psychiatric exam: Normal Affect, Normal Mood - Skin Skin Exam: Dry, Intact, Warm Assessment and Plan - Assessment and Plan (Free Text) Assessment: Mrs. Desir is a 55 year old female with a past medical history of obesity, HTN and DM who presented with complaints of bilateral leg pain and swelling Plan: 1. Lower Extremity Cellulitis - ID consulted, all recommendations appreciated - Cont Vanc and discontinue rocephin, per ID - can possibly transition to Doxy 100mg PO BID to complete treatment course - Blood cultures with no growth after 24 hours - LE dopplers negative for DVT - tylenol and percocet PRN for pain - PT/OT for eval and treatment 2. DM Type II - Humulin low SSI - Diabetic diet - Fingerstick q6 - will cont to monitor 3. HTN - Cont Lisinopril, HCTZ Lasix, and cardizem - will cont to monitor with VS Q6 4. History of Visual Hallucinations - cont home depakote and geodon 5. History of Depression - Cont home amitriptyline 6. History of Anxiety - cont home xanax 7. GI/DVT Prophylaxis - protonix and pepcid/heparin Patient seen and case discussed in detail with attending, Dr. Hutchison. <Pa Hutchison - Last Filed: 11/28/16 16:16> Objective - Vital Signs/Intake and Output Vital Signs (last 24 hours): Temp Pulse Resp BP Pulse Ox 98.1 F 74 18 142/63 93 L 11/28/16 16:10 11/28/16 16:10 11/28/16 16:10 11/28/16 16:10 11/28/16 16:10 Intake and Output: 11/28/16 11/28/16 06:59 18:59 Intake Total 720 Balance 720 - Medications Medications: Current Medications Acetaminophen (Tylenol 325mg Tab) 650 mg PO Q6H PRN PRN Reason: Fever >100.4 F Alprazolam (Xanax) 1 mg PO TID PRN; Protocol PRN Reason: Anxiety Last Admin: 11/28/16 09:55 Dose: 1 mg Amitriptyline HCl (Elavil) 100 mg PO HS [facility] Last Admin: 11/27/16 21:31 Dose: 100 mg Diltiazem HCl (Cardizem Cd) 240 mg PO DAILY [facility] Last Admin: 11/28/16 09:52 Dose: 240 mg Divalproex Sodium (Depakote Er(Once Daily)) 1,000 mg PO HS [facility] Last Admin: 11/27/16 21:34 Dose: 1,000 mg Famotidine (Pepcid) 20 mg PO 1000,2200 [facility] Last Admin: 11/28/16 09:54 Dose: 20 mg Furosemide (Lasix) 40 mg PO DAILY [facility] Last Admin: 11/28/16 09:53 Dose: 40 mg Heparin Sodium (Porcine) (Heparin) 5,000 units SC Q8 [facility] PRN Reason: Protocol Last Admin: 11/28/16 13:11 Dose: 5,000 units Hydrochlorothiazide (Hydrodiuril) 25 mg PO DAILY [facility] Last Admin: 11/28/16 09:52 Dose: 25 mg Vancomycin HCl (Vancomycin 1gm) 1 gm in 250 mls @ 167 mls/hr IVPB Q12 [facility] PRN Reason: Protocol Last Admin: 11/28/16 09:54 Dose: 167 mls/hr Insulin Human Regular (Humulin R Low) 0 units SC ACHS [facility] PRN Reason: Protocol Last Admin: 11/28/16 12:18 Dose: 3 units Lisinopril (Zestril) 10 mg PO DAILY [facility] Last Admin: 11/28/16 09:55 Dose: 10 mg Ondansetron HCl (Zofran Inj) 4 mg IVP Q4H PRN PRN Reason: Nausea/Vomiting Oxycodone/Acetaminophen (Percocet 5/325 Mg Tab) 1 tab PO Q4H PRN PRN Reason: Pain, moderate (4-7) Stop: 11/30/16 09:02 Last Admin: 11/28/16 13:11 Dose: 1 tab Pantoprazole Sodium (Protonix Ec Tab) 40 mg PO DAILY [facility] Last Admin: 11/28/16 09:54 Dose: 40 mg Ziprasidone (Geodon Cap) 80 mg PO [facility] PRN Reason: Protocol Last Admin: 11/27/16 21:39 Dose: 80 mg - Labs Labs: 11/28/16 08:40 11/28/16 08:40 APTT 30.8 Seconds (23.7-30.8) 11/27/16 04:00 Attending/Attestation - Attestation I have personally seen and examined this patient.: Yes I have fully participated in the care of the patient.: Yes I have reviewed all pertinent clinical information, including history, physical exam and plan: Yes Notes (Text): 11/28/16 16:13 attending note; Patient seen and examined with resident. Patient is a 56-year-old female with a history of anxiety, depression, diabetes , obesity is admitted with lower extremity cellulitis. Currently on IV vancomycin. Doppler is negative for DVT. Elevate the lower extremities. Diabetes; continue Levemir. Possible discharge home tomorrow if clinically improves. ID evaluation appreciated. Upon discharge the patient will follow up with PMD Dr. Mancera. 11/28/16 16:15
[2016-11-28] MEDS: Divalproex 500 mg ER (ONCE DAILY formulation) PO SCH (21:48)
[2016-11-28] MEDS ORDERED: Insulin Detemir 100 units/ml Vial (Levemir) SC SCH (22:00)
[2016-11-29 07:09] LABS: BASO # 0.01 K/mm3 (0.0-2.0); BASO % 0.2 % (0.0-3.0); EOS # 0.3 (0.0-0.7); EOS % 5.9 % (1.5-5.0); GRAN # 2.29 (1.4-6.5); GRAN % 51.6 % (50.0-68.0); HEMOGLOBIN 11.5 gm/dL (12.0-16.0); LYMPH # 1.6 (1.2-3.4); LYMPH % 35.8 % (22.0-35.0); MEAN CELL VOLUME 85.3 fL (80.0-105.0); MEAN CORPUSCULAR HEMOGLOBIN 28.7 pg (25.0-35.0); MEAN CORPUSCULAR HGB CONC 33.6 g/dl (31.0-37.0); MEAN PLATELET VOLUME 8.9 fl (7.0-11.0); MONO # 0.3 (0.1-0.6); MONO % 6.5 % (1.0-6.0); PLATELET COUNT 186 10^3/uL (120.0-450.0); RBC 4.01 10^6/uL (3.5-6.1); WHITE BLOOD COUNT 4.4 10^3/ul (4.5-11.0)
[2016-11-29 07:52] LABS: ALB/GLOB RATIO 1.2 (1.1-1.8); ALBUMIN 3.3 g/dL (3.0-4.8); ALT/SGPT 20 U/L (7-56); AST/SGOT 15 U/L (15-39); BLOOD UREA NITROGEN 13 mg/dL (7-21); CALCIUM 8.9 mg/dL (8.4-10.5); GFR AFRICAN-AMERICAN > 60; GFR NON-AFRICAN AMERICAN > 60
[2016-11-29 08:06] VITALS: BP 130/72; PULSE 79; TEMP 98.2; O2SAT 94
--- NOTE | 2016-11-29 08:12 | PN ---
DATE: 11/27/2016 SUBJECTIVE: The patient is in bed, in no acute distress, and nontoxic. PHYSICAL EXAMINATION VITAL SIGNS: Temperature is 98.0, blood pressure is 130/70, and respiratory rate is 20. HEENT: Unremarkable. NECK: Supple. LUNGS: Decreased breath sounds. HEART: Normal S1 and S2. ABDOMEN: Soft and nontender. LABORATORY DATA: Reveals a white count of 5.5 and hemoglobin of 12. Chemistries are noted and BUN of 14 and creatinine of 0.9. Microbiology is noted. Michael Wells MD
[2016-11-29] MEDS: Insulin Reg-LOW-Coverage SC SCH ×2 (08:49→12:31)
[2016-11-29] MEDS: diltiaZEM 240 mg/24 Hours CD Cap PO SCH (09:07)
[2016-11-29] MEDS: Pantoprazole 40 mg EC Tab PO SCH (09:10)
[2016-11-29] MEDS: Vancomycin 1gm in NS 250ml 1 GM/250 ML BAG IVPB SCH (09:13)
[2016-11-29] MEDS: Oxycodone/Acetaminophen 5/325 mg Tab PO PRN (09:18)
--- NOTE | 2016-11-29 11:21 | CP.PCM.PN ---
Subjective - Date & Time of Evaluation Date of Evaluation: 11/29/16 Time of Evaluation: 10:35 - Subjective Subjective: Patient is feeling better, no fevers overnight, not in distress, less pain and swelling on the left leg. Objective - Vital Signs/Intake and Output Vital Signs (last 24 hours): Temp Pulse Resp BP Pulse Ox 98.2 F 79 18 130/72 94 L 11/29/16 08:05 11/29/16 08:05 11/29/16 08:05 11/29/16 09:10 11/29/16 08:05 Intake and Output: 11/29/16 11/29/16 06:59 18:59 Intake Total 1100 Balance 1100 - Medications Medications: Current Medications Acetaminophen (Tylenol 325mg Tab) 650 mg PO Q6H PRN PRN Reason: Fever >100.4 F Alprazolam (Xanax) 1 mg PO TID PRN; Protocol PRN Reason: Anxiety Last Admin: 11/28/16 20:09 Dose: 1 mg Amitriptyline HCl (Elavil) 100 mg PO [facility] Last Admin: 11/28/16 21:49 Dose: 100 mg Diltiazem HCl (Cardizem Cd) 240 mg PO DAILY [facility] Last Admin: 11/29/16 09:07 Dose: 240 mg Divalproex Sodium (Depakote Er(Once Daily)) 1,000 mg PO HS [facility] Last Admin: 11/28/16 21:48 Dose: 1,000 mg Famotidine (Pepcid) 20 mg PO 1000,2200 [facility] Last Admin: 11/29/16 09:10 Dose: 20 mg Furosemide (Lasix) 40 mg PO DAILY [facility] Last Admin: 11/29/16 09:10 Dose: 40 mg Heparin Sodium (Porcine) (Heparin) 5,000 units SC Q8 [facility] PRN Reason: Protocol Last Admin: 11/28/16 21:50 Dose: 5,000 units Hydrochlorothiazide (Hydrodiuril) 25 mg PO DAILY [facility] Last Admin: 11/29/16 09:09 Dose: 25 mg Vancomycin HCl (Vancomycin 1gm) 1 gm in 250 mls @ 167 mls/hr IVPB Q12 [facility] PRN Reason: Protocol Last Admin: 11/29/16 09:13 Dose: 167 mls/hr Insulin Detemir (Levemir) 25 unit SC [facility] Last Admin: 11/28/16 21:53 Dose: 25 unit Insulin Human Regular (Humulin R Low) 0 units SC ACHS [facility] PRN Reason: Protocol Last Admin: 11/29/16 08:49 Dose: 1 units Lisinopril (Zestril) 10 mg PO DAILY [facility] Last Admin: 11/29/16 09:09 Dose: 10 mg Ondansetron HCl (Zofran Inj) 4 mg IVP Q4H PRN PRN Reason: Nausea/Vomiting Oxycodone/Acetaminophen (Percocet 5/325 Mg Tab) 1 tab PO Q4H PRN PRN Reason: Pain, moderate (4-7) Stop: 11/30/16 09:02 Last Admin: 11/29/16 09:18 Dose: 1 tab Pantoprazole Sodium (Protonix Ec Tab) 40 mg PO DAILY [facility] Last Admin: 11/29/16 09:10 Dose: 40 mg Ziprasidone (Geodon Cap) 80 mg PO HS [facility] PRN Reason: Protocol Last Admin: 11/28/16 21:49 Dose: 80 mg - Labs Labs: 11/29/16 06:30 11/29/16 06:30 APTT 30.8 Seconds (23.7-30.8) 11/27/16 04:00 - Constitutional Appears: Non-toxic, No Acute Distress - Head Exam Head Exam: NORMAL INSPECTION - Neck Exam Neck Exam: absent: Meningismus - Respiratory Exam Respiratory Exam: Decreased Breath Sounds - Cardiovascular Exam Cardiovascular Exam: +S1, +S2 - GI/Abdominal Exam GI & Abdominal Exam: Soft. absent: Tenderness - Extremities Exam Additional comments: left leg with decreased swelling and erythema Assessment and Plan - Assessment and Plan (Free Text) Plan: Assessment Left lower extremity cellulitis, slowly improving clinically DM morbid obesity with BMI 47 history of diverticulitis GERD depression anxiety bipolar disorder CAD Plan Patient can be switched to Doxycycline and Keflex for another 5 days; patient is currently on Vancomycin (Day 2); patient will need outpatient follow up with PMD
--- NOTE | 2016-11-29 11:35 | US ---
HISTORY: Leg pain and swelling. Evaluate for DVT PHYSICIAN(S): Aric Nielsen MD. TECHNIQUE: Duplex sonography and color-flow Doppler with graded compression were used to evaluate the deep venous systems of both lower extremities. The exam is limited by body habitus and edema. FINDINGS: The visualized deep venous systems of both lower extremities are sonographically normal and compressible. Normal wave forms and augmentation are seen. There is no sonographic evidence for deep venous thrombosis in the visualized segments of both lower extremities. IMPRESSION: No sonographic evidence for deep venous thrombosis in the visualized segments of both lower extremities. Limited study.
--- NOTE | 2016-11-29 19:19 | CP.PCM.DIS ---
<Jovany Santiago - Last Filed: 11/29/16 19:29> Provider - Provider Date of Admission: 11/28/16 08:15 Attending physician: Pa Hutchison MD Primary care physician: Zana Mancera MD Consults: Dr. Xiong Neurology Time Spent in preparation of Discharge (in minutes): 45 Diagnosis - Discharge Diagnosis (1) Cellulitis Status: Acute Hospital Course - Lab Results Lab Results: Most Recent Lab Values WBC 4.4 10^3/ul (4.5-11.0) L 11/29/16 06:30 RBC 4.01 10^6/uL (3.5-6.1) 11/29/16 06:30 Hgb 11.5 gm/dL (12.0-16.0) L 11/29/16 06:30 Hct 34.2 % (36.0-48.0) L 11/29/16 06:30 MCV 85.3 fL (80.0-105.0) 11/29/16 06:30 MCH 28.7 pg (25.0-35.0) 11/29/16 06:30 MCHC 33.6 g/dl (31.0-37.0) 11/29/16 06:30 RDW 13.0 % (11.5-14.5) 11/29/16 06:30 Plt Count 186 10^3/uL (120.0-450.0) 11/29/16 06:30 MPV 8.9 fl (7.0-11.0) 11/29/16 06:30 Gran % 51.6 % (50.0-68.0) 11/29/16 06:30 Lymph % (Auto) 35.8 % (22.0-35.0) H 11/29/16 06:30 [place] % (Auto) 6.5 % (1.0-6.0) H 11/29/16 06:30 Eos % (Auto) 5.9 % (1.5-5.0) H 11/29/16 06:30 Baso % (Auto) 0.2 % (0.0-3.0) 11/29/16 06:30 Gran # 2.29 (1.4-6.5) 11/29/16 06:30 Lymph # 1.6 (1.2-3.4) 11/29/16 06:30 [place] # 0.3 (0.1-0.6) 11/29/16 06:30 Eos # 0.3 (0.0-0.7) 11/29/16 06:30 Baso # 0.01 K/mm3 (0.0-2.0) 11/29/16 06:30 Neutrophils % (Manual) 59 % (50.0-70.0) 11/27/16 06:55 Band Neutrophils % 1 % (0-2) 11/27/16 06:55 Lymphocytes % (Manual) 33 % (22.0-35.0) 11/27/16 06:55 Monocytes % (Manual) 1 % (1.0-6.0) 11/27/16 06:55 Eosinophils % (Manual) 6 % (0.0-3.0) H 11/27/16 06:55 Platelet Evaluation Normal (NORMAL) 11/27/16 06:55 APTT 30.8 Seconds (23.7-30.8) 11/27/16 04:00 Sodium 138 mmol/L (132-148) 11/29/16 06:30 Potassium 4.0 mmol/L (3.6-5.0) 11/29/16 06:30 Chloride 103 mmol/L (98-107) 11/29/16 06:30 Carbon Dioxide 28 mmol/L (21-33) 11/29/16 06:30 Anion Gap 11 (10-20) 11/29/16 06:30 BUN 13 mg/dL (7-21) 11/29/16 06:30 Creatinine 0.8 mg/dL (0.5-1.4) 11/29/16 06:30 Est GFR ( Amer) > 60 11/29/16 06:30 Est GFR (Non-Af Amer) > 60 11/29/16 06:30 POC Glucose (mg/dL) 221 mg/dL (65-110) H 11/29/16 11:35 Random Glucose 153 mg/dL (70-110) H 11/29/16 06:30 Calcium 8.9 mg/dL (8.4-10.5) 11/29/16 06:30 Total Bilirubin 0.3 mg/dL (0.2-1.3) 11/29/16 06:30 AST 15 U/L (15-39) 11/29/16 06:30 ALT 20 U/L (7-56) 11/29/16 06:30 Alkaline Phosphatase 72 U/L (38-133) 11/29/16 06:30 NT-Pro-B Natriuret Pep 90.9 pg/mL (0-450) 11/26/16 21:55 Total Protein 6.1 g/dL (5.8-8.3) 11/29/16 06:30 Albumin 3.3 g/dL (3.0-4.8) 11/29/16 06:30 Globulin 2.8 gm/dL 11/29/16 06:30 Albumin/Globulin Ratio 1.2 (1.1-1.8) 11/29/16 06:30 - Hospital Course Hospital Course: 55 year old female PMH HTN and DM presented to the [facility] ED on 11/26/16 with complaints of bilateral leg pain and swelling for which she was seen 3 days prior to admission and prescribed keflex and bactrim for outpatient treatment of cellulitis. Patient stated that she was feeling more pain in her left leg in comparison to the right. She stated that the pain was worsened with walking but has still been trying to move around as much as she can. Patient stated that she was instructed previously to take the antibiotics for 7 days but stopped after 4 days. On the day of d/c, the patient's swelling had decreased significantly, though the redneess was still at the upper border of the infection. ID was consulted, and cleared the patient for d/c on oral doxycycline and oral vancomycin. Patient was stable and doing well on day of discharge. - Date & Time of H&P Date of H&P: 11/27/16 Time of H&P: 05:55 Discharge Exam - Head Exam Head Exam: NORMAL INSPECTION - Eye Exam Eye Exam: EOMI, Normal appearance, PERRL Pupil Exam: NORMAL ACCOMODATION, PERRL - ENT Exam ENT Exam: Mucous Membranes Moist - Neck Exam Neck exam: Full Rom - Respiratory Exam Respiratory Exam: Clear to PA & Lateral, NORMAL BREATHING PATTERN, UNREMARKABLE - Cardiovascular Exam Cardiovascular Exam: REGULAR RHYTHM - GI/Abdominal Exam GI & Abdominal Exam: Normal Bowel Sounds, Unremarkable - Rectal Exam Rectal Exam: NORMAL INSPECTION - Extremities Exam Extremities exam: full ROM - Back Exam Back exam: FULL ROM - Neurological Exam Neurological exam: Alert, CN II-XII Intact, Normal Gait, Oriented x3, Reflexes Normal - Psychiatric Exam Psychiatric exam: Normal Affect, Normal Mood - Skin Skin Exam: Intact, Warm Discharge Plan - Discharge Medications Prescriptions: Doxycycline Hyclate 100 mg PO BID #14 capsule Furosemide [Lasix] 40 mg PO DAILY #15 tablet - Follow Up Plan Condition: STABLE Disposition: HOME/ ROUTINE Patient education suggested?: Yes Instructions: Cellulitis (GEN), Cigarette Smoking and Your Health (GEN), Bipolar Disorder (GEN), Anxiety (GEN) Additional Instructions: FOLLOW UP WITH PRIMARY PHYSICIAN Make sure to take your Antibiotics as prescribed - take the FULL COURSE! Please return to ED if symptoms get worse Referrals: Zana Mancera MD [Primary Care Provider] - <Pa Hutchison - Last Filed: 12/02/16 12:14> Provider - Provider Date of Admission: 11/28/16 08:15 Attending physician: Pa Hutchison MD Primary care physician: Zana Mancera MD Hospital Course - Lab Results Lab Results: Most Recent Lab Values WBC 4.4 10^3/ul (4.5-11.0) L 11/29/16 06:30 RBC 4.01 10^6/uL (3.5-6.1) 11/29/16 06:30 Hgb 11.5 gm/dL (12.0-16.0) L 11/29/16 06:30 Hct 34.2 % (36.0-48.0) L 11/29/16 06:30 MCV 85.3 fL (80.0-105.0) 11/29/16 06:30 MCH 28.7 pg (25.0-35.0) 11/29/16 06:30 MCHC 33.6 g/dl (31.0-37.0) 11/29/16 06:30 RDW 13.0 % (11.5-14.5) 11/29/16 06:30 Plt Count 186 10^3/uL (120.0-450.0) 11/29/16 06:30 MPV 8.9 fl (7.0-11.0) 11/29/16 06:30 Gran % 51.6 % (50.0-68.0) 11/29/16 06:30 Lymph % (Auto) 35.8 % (22.0-35.0) H 11/29/16 06:30 [place] % (Auto) 6.5 % (1.0-6.0) H 11/29/16 06:30 Eos % (Auto) 5.9 % (1.5-5.0) H 11/29/16 06:30 Baso % (Auto) 0.2 % (0.0-3.0) 11/29/16 06:30 Gran # 2.29 (1.4-6.5) 11/29/16 06:30 Lymph # 1.6 (1.2-3.4) 11/29/16 06:30 [place] # 0.3 (0.1-0.6) 11/29/16 06:30 Eos # 0.3 (0.0-0.7) 11/29/16 06:30 Baso # 0.01 K/mm3 (0.0-2.0) 11/29/16 06:30 Neutrophils % (Manual) 59 % (50.0-70.0) 11/27/16 06:55 Band Neutrophils % 1 % (0-2) 11/27/16 06:55 Lymphocytes % (Manual) 33 % (22.0-35.0) 11/27/16 06:55 Monocytes % (Manual) 1 % (1.0-6.0) 11/27/16 06:55 Eosinophils % (Manual) 6 % (0.0-3.0) H 11/27/16 06:55 Platelet Evaluation Normal (NORMAL) 11/27/16 06:55 APTT 30.8 Seconds (23.7-30.8) 11/27/16 04:00 Sodium 138 mmol/L (132-148) 11/29/16 06:30 Potassium 4.0 mmol/L (3.6-5.0) 11/29/16 06:30 Chloride 103 mmol/L (98-107) 11/29/16 06:30 Carbon Dioxide 28 mmol/L (21-33) 11/29/16 06:30 Anion Gap 11 (10-20) 11/29/16 06:30 BUN 13 mg/dL (7-21) 11/29/16 06:30 Creatinine 0.8 mg/dL (0.5-1.4) 11/29/16 06:30 Est GFR ( Amer) > 60 11/29/16 06:30 Est GFR (Non-Af Amer) > 60 11/29/16 06:30 POC Glucose (mg/dL) 221 mg/dL (65-110) H 11/29/16 11:35 Random Glucose 153 mg/dL (70-110) H 11/29/16 06:30 Calcium 8.9 mg/dL (8.4-10.5) 11/29/16 06:30 Total Bilirubin 0.3 mg/dL (0.2-1.3) 11/29/16 06:30 AST 15 U/L (15-39) 11/29/16 06:30 ALT 20 U/L (7-56) 11/29/16 06:30 Alkaline Phosphatase 72 U/L (38-133) 11/29/16 06:30 NT-Pro-B Natriuret Pep 90.9 pg/mL (0-450) 11/26/16 21:55 Total Protein 6.1 g/dL (5.8-8.3) 11/29/16 06:30 Albumin 3.3 g/dL (3.0-4.8) 11/29/16 06:30 Globulin 2.8 gm/dL 11/29/16 06:30 Albumin/Globulin Ratio 1.2 (1.1-1.8) 11/29/16 06:30 Attending/Attestation - Attestation I have personally seen and examined this patient.: Yes I have fully participated in the care of the patient.: Yes I have reviewed all pertinent clinical information, including history, physical exam and plan: Yes Notes (Text): 12/02/16 12:12 attending note; Patient seen and examined with resident. Patient is a 56-year-old female with a history of anxiety, depression, diabetes , obesity is admitted with lower extremity cellulitis. treated with IV vancomycin. Doppler is negative for DVT. swelling and redness improved significantly. Diabetes; continue Levemir. Poor diabetic control. Advised to follow-up PMD/ endocrinology. Contact information for diabetic nurse educator Geraldine Wheat given. patient will be discharged home with po doxycycline to complete the course. Upon discharge the patient will follow up with PMD Dr. Mancera. diagnosis; Cellulitis Uncontrolled diabetes Chronic leg edema Obesity
== END 2016-11-29 14:13 | disposition home or self-care (01) ==
LOC: ED 21:05 → ERH 23:39 → UNDOADMOB 11-27 00:31 → ERH 11-27 00:54 → 5RNO 11-27 01:53 → ERH 11-27 01:53 → INTOOBSV 11-28 08:15 → OBSVTOIN 11-28 08:15 → UNDODISOB 11-29 14:13
PROVIDERS: ADMIT Hospitalist; ATTEND Internal Medicine
DX: L03.116 Cellulitis of left lower limb (principal); F20.9 Schizophrenia, unspecified; Z68.42 Body mass index [BMI] 45.0-49.9, adult; E66.01 Morbid (severe) obesity due to excess calories; K57.92 Diverticulitis of intestine, part unspecified, without perforation or abscess without bleeding; I10 Essential (primary) hypertension; I25.10 Atherosclerotic heart disease of native coronary artery without angina pectoris; K21.9 Gastro-esophageal reflux disease without esophagitis; F41.9 Anxiety disorder, unspecified; F31.9 Bipolar disorder, unspecified; E11.9 Type 2 diabetes mellitus without complications; K52.9 Noninfective gastroenteritis and colitis, unspecified; Z79.4 Long term (current) use of insulin; Z87.01 Personal history of pneumonia (recurrent); Z87.440 Personal history of urinary (tract) infections; Z88.0 Allergy status to penicillin; M19.90 Unspecified osteoarthritis, unspecified site; N39.3 Stress incontinence (female) (male); Z88.1 Allergy status to other antibiotic agents; R40.2412 Glasgow coma scale score 13-15, at arrival to emergency department
CPT/HCPCS: 36415; 71010; 80053; 82948; 83880; 85025; 85730; 87040; 93005; 93970; 96365; 96366; 96367; 96372; 96375; 96376; 99285; G0378; J0696; J1200; J1644; J1885; J7040

== ENCOUNTER 2016-12-09 23:15 | Emergency (ER) | payer OTHER ==
[2016-12-09 23:32] VITALS: BMI 45.7
[2016-12-10 00:23] VITALS: RESP 18; TEMP 98.1
--- NOTE | 2016-12-10 00:53 | ED PDOC ---
Arrival/HPI - General Historian: Patient - General Chief Complaint: Lower Extremity Problem/Injury Time Seen by Provider: 12/09/16 23:50 - History of Present Illness Narrative History of Present Illness (Text): 12/10/16 00:53 55 y/o female, pmh including htn/dm, allergic to penicilin and macrolide, presents with b/l LE erythema and pain, which is unchanged from when she was d/ c from the hospital. Pt. states that she has no fever or chills, dyspnea, CP, headache, dizziness, N/V, abdominal pain, urinary symptoms, trauma/injury, pain when ambulating. Reports being recently being admitted to the hospital for similar symptoms, during her admission, she had a bilateral venuous doppler with no DVT. Pt states when she was d/c she was Rx antibiotics, and finished the course, however did not f/u with her pmd or Dr. Wells the ID doctor that took care of her during the admission. PMD Calder[place] (Rakesh GROSS,Nieves Wood) Past Medical History - Provider Review Nursing Documentation Reviewed: Yes - Past History Past History: Non-Contributing - Infectious Disease Hx of Infectious Diseases: None - Tetanus Immunization Tetanus Immunization: Unknown - Past Medical History Past Medical History: Non-Contributing - Cardiac Hx Cardiac Disorders: Yes Hx Hypertension: Yes - Pulmonary Hx Respiratory Disorders: Yes Hx Pneumonia: Yes - Neurological Hx Neurological Disorder: No - HEENT Hx HEENT Disorder: No - Renal Hx Renal Disorder: No - Endocrine/Metabolic Hx Endocrine Disorders: Yes Hx Diabetes Mellitus Type 2: Yes - Hematological/Oncological Hx Blood Disorders: No - Integumentary Hx Dermatological Disorder: No Other/Comment: cellulitis to the lower extremities since 08/23 - Musculoskeletal/Rheumatological Hx Musculoskeletal Disorders: Yes Hx Arthritis: Yes Hx Falls: No - Gastrointestinal Hx Gastrointestinal Disorders: Yes Hx Diverticulitis: Yes Hx Gastroesophageal Reflux: Yes Other/Comment: colitis - Genitourinary/Gynecological Hx Genitourinary Disorders: Yes Hx Incontinence: Yes (stress incontinece) Hx Urinary Tract Infection: Yes - Psychiatric Hx Psychophysiologic Disorder: Yes Hx Anxiety: Yes Hx Bipolar Disorder: Yes Hx Depression: Yes Hx Schizophrenia: Yes Hx Substance Use: No - Past Surgical History Past Surgical History: Non-Contributing - Surgical History Other/Comment: Colonoscopy. Endoscopy - Anesthesia Hx Anesthesia: Yes Hx Anesthesia Reactions: No - Suicidal Assessment Feels Threatened In Home Enviroment: No Family/Social History - Physician Review Nursing Documentation Reviewed: Yes Family/Social History: No Known Family HX Smoking Status: Heavy Smoker > 10 Cigarettes Daily Hx Alcohol Use: No Hx Substance Use: No Hx Substance Use Treatment: No Allergies/Home Meds Allergies/Adverse Reactions: Allergies amoxicillin [From Augmentin] Allergy (Verified 11/26/16 21:22) NAUSEA clarithromycin [From Biaxin] Allergy (Verified 11/26/16 21:22) RASH clavulanic acid [From Augmentin] Allergy (Verified 11/26/16 21:22) NAUSEA Home Medications: Home Meds Medication Instructions Recorded Confirmed Enalapril Maleate 10 mg PO DAILY 01/09/15 12/10/16 Pantoprazole Sodium [Protonix] 40 mg PO DAILY 08/25/16 12/10/16 [id number] CD [Cardizem CD] 340 mg PO DAILY 08/25/16 12/10/16 Insulin Detemir [Levemir] 0 units SC HS 09/22/16 12/10/16 Review of Systems - Review of Systems Constitutional: Normal. absent: Fatigue, Weight Change, Fevers Respiratory: Normal. absent: SOB, Cough, Sputum Cardiovascular: Normal. absent: Chest Pain, Palpitations, Edema Musculoskeletal: Normal. absent: Arthralgias, Back Pain, Neck Pain, Joint Swelling Skin: Normal, Cellulitis (to b/l LE). absent: Rash, Pruritis, Skin Lesions Neurological: Normal. absent: Headache, Dizziness, Focal Weakness Physical Exam Vital Signs Reviewed: Yes Temperature: Afebrile Blood Pressure: Normal Pulse: Regular Respiratory Rate: Normal Appearance: Positive for: Well-Appearing, Non-Toxic, Comfortable Pain Distress: None Mental Status: Positive for: Alert and Oriented X 3 - Systems Exam Head: Present: Atraumatic, Normocephalic Pupils: Present: PERRL Mouth: Present: Moist Mucous Membranes Neck: Present: Normal Range of Motion. No: MIDLINE TENDERNESS Respiratory/Chest: Present: Clear to Auscultation, Good Air Exchange. No: Respiratory Distress, Accessory Muscle Use, Wheezes, Rhonchi Cardiovascular: Present: Regular Rate and Rhythm, Normal S1, S2. No: Murmurs Abdomen: No: Tenderness, Rebound, Guarding Back: Present: Normal Inspection. No: Midline Tenderness Upper Extremity: Present: Normal Inspection, Normal ROM, NORMAL PULSES, Neurovascularly Intact, Capillary Refill < 2s. No: Edema, Tenderness, Swelling , Temperature Abnormalties Lower Extremity: Present: NORMAL PULSES, Normal ROM, Erythema (b/l erythema to b /l LE from the ankles to just below the knees), Neurovascularly Intact, Capillary Refill < 2 s. No: Edema, CALF TENDERNESS, Tenderness, Swelling, Deformity, Temperature Abnormalties Neurological: Present: GCS=15, CN II-XII Intact, Speech Normal, Motor Func Grossly Intact, Normal Sensory Function Skin: Present: Warm, Dry, Normal Color. No: Rashes Psychiatric: Present: Alert, Oriented x 3 Medical Decision Making ED Course and Treatment: 12/10/16 00:52 55 y/o female, pmh including htn/dm, allergic to penicilin and macrolide, presents with b/l LE erythema and pain, which is unchanged from when she was d/ c from the hospital. Previous medical records reviewed : pt was admitted here on 11/26/16 for cellulitis. During her admission her WBC was always wnl. EKG shows NSR, Chest xray show mildly enlarged heart otherwise NAD, it was documented that the pt had bilateral lower extremities US that showed no acute DVT. She was then d/c of doxycycline. Plan: - Labs - IV - Blood cx - Wound cx - Tylenol po 12/10/16 01:06 Labs reviewed, pt's WBC is wnl. Pt advised that she will need to f/u with Dr. Wells regarding her symptoms and to ensure complete resolution. Informed of the lab findings. Based on history, exam and diagnostic results plan will be for outpatient follow-up with ID and her PMD. Advised to take medication as prescribed. Return to the emergency room at any time for any new or worsening symptoms. Patient states she fully agrees with and understands discharge instructions. States that she agrees with the plan and disposition. Verbalized and repeated discharge instructions and plan. I have given the patient opportunity to ask any additional questions. (Rakesh GROSS,Nieves Wood) 12/10/16 01:15 I was available for consultation during PA evaluation. The chart reviewed by me , and I agree with disposition. The documented history was done by the physician workers compensation examiner. The documented physical exam was done by physician workers compensation examiner. The documented procedures were done by physician workers compensation examiner. (Buck Ball) - Medication Orders Current Medication Orders: Discontinued Medications Acetaminophen (Tylenol 325mg Tab) 975 mg PO STAT STA Stop: 12/10/16 01:02 Diphenhydramine HCl (Benadryl) 25 mg IVP STAT STA Stop: 12/10/16 01:10 Ketorolac Tromethamine (Toradol) 30 mg IVP STAT STA Stop: 12/10/16 00:26 Last Admin: 12/10/16 00:51 Dose: 30 mg - PA / PREMIUM CARD CANCELLATION CLERK / Resident Statement /DO has reviewed & agrees with the documentation as recorded. Disposition/Present on Arrival - Present on Arrival Any Indicators Present on Arrival: No History of DVT/PE: No History of Uncontrolled Diabetes: No Urinary Catheter: No History of Decub. Ulcer: No History Surgical Site Infection Following: None - Disposition Have Diagnosis and Disposition been Completed?: Yes Disposition Time: 01:30 - Disposition Diagnosis: Cellulitis Condition: STABLE Discharge Instructions (ExitCare): Cellulitis (ED) Print Language: PORTUGUESE Additional Instructions: Thank you for letting us take care of you today. You were treated for cellulitis. The emergency medical care you received today was directed at your acute symptoms. If you were prescribed any medication, please fill it and take as directed. It may take several days for your symptoms to resolve. Return to the Emergency Department if your symptoms worsen, do not improve, or if you have any other problems. Please contact your doctor in 2 days for re-evaluation and follow up / or call one of the physicians/clinics you have been referred to that are listed on the Patient Visit Information form that is included in your discharge packet. Bring any paperwork you were given at discharge with you along with any medications you are taking to your follow up visit. Our treatment cannot replace ongoing medical care by a primary care provider (PCP) outside of the emergency department. Thank you for allowing the [facility] team to be part of your care today. Prescriptions: Doxycycline Hyclate [Doryx] 100 mg PO BID #14 cap Referrals: Michael Wells MD [Staff Provider] - Follow up with primary Forms: [employer] (Italian)
[2016-12-10 01:08] LABS: BASO # 0.01 K/mm3 (0.0-2.0); BASO % 0.2 % (0.0-3.0); EOS # 0.2 (0.0-0.7); EOS % 2.5 % (1.5-5.0); GRAN # 3.76 (1.4-6.5); GRAN % 63.5 % (50.0-68.0); HEMOGLOBIN 12.7 gm/dL (12.0-16.0); LYMPH # 1.6 (1.2-3.4); MEAN CELL VOLUME 87.1 fL (80.0-105.0); MEAN CORPUSCULAR HEMOGLOBIN 29.7 pg (25.0-35.0); MEAN PLATELET VOLUME 9.7 fl (7.0-11.0); MONO # 0.4 (0.1-0.6); MONO % 6.8 % (1.0-6.0); PLATELET COUNT 240 10^3/uL (120.0-450.0); RBC 4.28 10^6/uL (3.5-6.1); RED CELL DISTRIBUTION WIDTH 13.5 % (11.5-14.5); WHITE BLOOD COUNT 5.9 10^3/ul (4.5-11.0)
[2016-12-10] MEDS ORDERED: DiphenhydrAMINE 50 mg/ml Inj IVP STA (01:09)
[2016-12-10 01:24] LABS: ALB/GLOB RATIO 1.2 (1.1-1.8); ALBUMIN 4.1 g/dL (3.0-4.8); ALT/SGPT 28 U/L (7-56); AST/SGOT 26 U/L (15-39); BLOOD UREA NITROGEN 17 mg/dL (7-21); CALCIUM 9.9 mg/dL (8.4-10.5); GFR AFRICAN-AMERICAN > 60; GFR NON-AFRICAN AMERICAN > 60
[2016-12-10 01:39] VITALS: BP 117/62; PULSE 75; O2SAT 98
== END 2016-12-10 01:47 | disposition home or self-care (01) ==
LOC: ED 23:15
DX: L03.116 Cellulitis of left lower limb (principal); L03.115 Cellulitis of right lower limb; I10 Essential (primary) hypertension; E11.9 Type 2 diabetes mellitus without complications
CPT/HCPCS: 80053; 85025; 87040; 87070; 87181; 96374; 96375; 99284; J1200; J1885

== ENCOUNTER 2016-12-10 05:32 | Observation (INO) | payer OTHER ==
[2016-12-10 05:32] VITALS: BMI 45.7
--- NOTE | 2016-12-10 05:45 | ED PDOC ---
Arrival/HPI - General Time Seen by Provider: 12/10/16 05:40 - History of Present Illness Narrative History of Present Illness (Text): 12/10/16 05:42 56yo female with b/l lower extremity redness. pt states the redness is getting worst and warmer. Denies nausea or vomiting, denies f/c. States after she came home, she noticed the streaking becoming more proximal. States the redness was above the demarcated line previously drawn, which is no longer present bc pt states she washed it off. Past Medical History - Provider Review Nursing Documentation Reviewed: Yes - Past History Past History: Non-Contributing - Infectious Disease Hx of Infectious Diseases: None - Tetanus Immunization Tetanus Immunization: Unknown - Past Medical History Past Medical History: Non-Contributing - Cardiac Hx Cardiac Disorders: Yes Hx Hypertension: Yes - Pulmonary Hx Respiratory Disorders: Yes Hx Pneumonia: Yes - Neurological Hx Neurological Disorder: No - HEENT Hx HEENT Disorder: No - Renal Hx Renal Disorder: No - Endocrine/Metabolic Hx Endocrine Disorders: Yes Hx Diabetes Mellitus Type 2: Yes - Hematological/Oncological Hx Blood Disorders: No - Integumentary Hx Dermatological Disorder: No Other/Comment: cellulitis to the lower extremities since 08/23 - Musculoskeletal/Rheumatological Hx Musculoskeletal Disorders: Yes Hx Arthritis: Yes Hx Falls: No - Gastrointestinal Hx Gastrointestinal Disorders: Yes Hx Diverticulitis: Yes Hx Gastroesophageal Reflux: Yes Other/Comment: colitis - Genitourinary/Gynecological Hx Genitourinary Disorders: Yes Hx Incontinence: Yes (stress incontinece) Hx Urinary Tract Infection: Yes - Psychiatric Hx Psychophysiologic Disorder: Yes Hx Anxiety: Yes Hx Bipolar Disorder: Yes Hx Depression: Yes Hx Schizophrenia: Yes Hx Substance Use: No - Past Surgical History Past Surgical History: Non-Contributing - Surgical History Other/Comment: Colonoscopy. Endoscopy - Anesthesia Hx Anesthesia: Yes Hx Anesthesia Reactions: No - Suicidal Assessment Feels Threatened In Home Enviroment: No Family/Social History Family/Social History: Unknown Family HX Smoking Status: Heavy Smoker > 10 Cigarettes Daily Hx Alcohol Use: No Hx Substance Use: No Hx Substance Use Treatment: No Allergies/Home Meds Allergies/Adverse Reactions: Allergies amoxicillin [From Augmentin] Allergy (Verified 11/26/16 21:22) NAUSEA clarithromycin [From Biaxin] Allergy (Verified 11/26/16 21:22) RASH clavulanic acid [From Augmentin] Allergy (Verified 11/26/16 21:22) NAUSEA Home Medications: Home Meds Medication Instructions Recorded Confirmed Enalapril Maleate 10 mg PO DAILY 01/09/15 12/10/16 Pantoprazole Sodium [Protonix] 40 mg PO DAILY 08/25/16 12/10/16 [id number] CD [Cardizem CD] 340 mg PO DAILY 08/25/16 12/10/16 Insulin Detemir [Levemir] 0 units SC HS 09/22/16 12/10/16 Review of Systems - Physician Review All systems were reviewed & negative as marked: Yes - Review of Systems Constitutional: absent: Fevers Respiratory: absent: SOB, Cough Cardiovascular: absent: Chest Pain, Edema, Calf Pain Gastrointestinal: absent: Abdominal Pain, Nausea, Vomiting Skin: Cellulitis Physical Exam Temperature: Afebrile - Systems Exam Lower Extremity: Present: NORMAL PULSES, Normal ROM, Capillary Refill < 2 s, Other (b/l LE with no edema, erythema to pt's knees, some warmth, no crepitus). No: Cyanosis Neurological: Present: GCS=15, Motor Func Grossly Intact, Other (no focal neurological deficits) Psychiatric: Present: Alert, Oriented x 3, Normal Insight, Normal Concentration Medical Decision Making ED Course and Treatment: 12/10/16 05:48 pt with b/l LE cellulitis, states not getting better with PO abx. pt was dc'd home on doxy her last hospital stay dw Dr. Forde, accepted to hospitalist service resident aware Disposition/Present on Arrival - Present on Arrival Any Indicators Present on Arrival: No History of DVT/PE: No History of Uncontrolled Diabetes: No Urinary Catheter: No History of Decub. Ulcer: No History Surgical Site Infection Following: None - Disposition Have Diagnosis and Disposition been Completed?: Yes Diagnosis: Cellulitis Disposition: HOSPITALIZED Disposition Time: 05:42 Patient Plan: Admission Condition: FAIR Discharge Instructions (ExitCare): Cellulitis (ED)
[2016-12-10] MEDS ORDERED: Vancomycin 1gm in NS 250ml 1 GM/250 ML BAG IVPB STA (05:49)
--- NOTE | 2016-12-10 07:14 | CP.PCM.HP ---
<Henrry Degroot - Last Filed: 12/10/16 07:15> History of Present Illness - History of Present Illness History of Present Illness: 55 year old female PMH visual hallucination, HTN and DM presents to the ED on with complaints of bilateral leg pain and swelling. Pt states that she was here multiple times for the same symptoms and has not resolved. She states she was most recently here in [facility] for cellulites and d/carroll with Doxycline which she is compliant but "the rash keeps coming back." The pain is worse on ambulation and 8/10 in severity. She also states that she sees black stuff coming out of her foot and believes there are bugs coming out of her wound, so she picks at it trying to remove it. No other complaints. PMH: DM, HTN, Visual hallucinations PSH: denies SH: denies tobacco, alcohol, and illict drug use Allergies: amoxicillin, clarithromycin, clavulanic acid FH: denies Med: refer to MAR Present on Admission - Present on Admission Any Indicators Present on Admission: No Review of Systems - Review of Systems All systems: reviewed and no additional remarkable complaints except (HPI) Past Patient History - Infectious Disease Hx of Infectious Diseases: None - Tetanus Immunizations Tetanus Immunization: Unknown - Past Medical History & Family History Past Medical History?: Yes - Past Social History Smoking Status: Heavy Smoker > 10 Cigarettes Daily - CARDIAC Hx Cardiac Disorders: Yes Hx Hypertension: Yes - PULMONARY Hx Respiratory Disorders: Yes Hx Pneumonia: Yes - NEUROLOGICAL Hx Neurological Disorder: No - HEENT Hx HEENT Problems: No - RENAL Hx Chronic Kidney Disease: No - ENDOCRINE/METABOLIC Hx Endocrine Disorders: Yes Hx Diabetes Mellitus Type 2: Yes - HEMATOLOGICAL/ONCOLOGICAL Hx Blood Disorders: No - INTEGUMENTARY Hx Dermatological Problems: No Other/Comment: cellulitis to the lower extremities since 08/23 - MUSCULOSKELETAL/RHEUMATOLOGICAL Hx Musculoskeletal Disorders: Yes Hx Arthritis: Yes Hx Falls: No - GASTROINTESTINAL Hx Gastrointestinal Disorders: Yes Hx Diverticulitis: Yes Hx Gastroesophageal Reflux: Yes Other/Comment: colitis - GENITOURINARY/GYNECOLOGICAL Hx Genitourinary Disorders: Yes Hx Incontinence: Yes (stress incontinece) Hx Urinary Tract Infection: Yes - PSYCHIATRIC Hx Psychophysiologic Disorder: Yes Hx Anxiety: Yes Hx Bipolar Disorder: Yes Hx Depression: Yes Hx Schizophrenia: Yes Hx Substance Use: No - SURGICAL HISTORY Other/Comment: Colonoscopy. Endoscopy - ANESTHESIA Hx Anesthesia: Yes Hx Anesthesia Reactions: No Meds Allergies/Adverse Reactions: Allergies Allergy/AdvReac Type Severity Reaction Status Date / Time amoxicillin [From Augmentin] Allergy NAUSEA Verified 11/26/16 21:22 clarithromycin [From Biaxin] Allergy RASH Verified 11/26/16 21:22 clavulanic acid Allergy NAUSEA Verified 11/26/16 21:22 [From Augmentin] Physical Exam - Constitutional Appears: No Acute Distress - Head Exam Head Exam: ATRAUMATIC, NORMAL INSPECTION, NORMOCEPHALIC - Eye Exam Eye Exam: EOMI, Normal appearance, PERRL Pupil Exam: NORMAL ACCOMODATION, PERRL - ENT Exam ENT Exam: Mucous Membranes Moist, Normal Exam - Neck Exam Neck exam: Positive for: Normal Inspection - Respiratory Exam Respiratory Exam: Clear to Auscultation Bilateral, NORMAL BREATHING PATTERN. absent: Wheezes - Cardiovascular Exam Cardiovascular Exam: REGULAR RHYTHM, RRR, +S1, +S2 - GI/Abdominal Exam GI & Abdominal Exam: Normal Bowel Sounds, Soft. absent: Tenderness - Extremities Exam Extremities exam: Positive for: normal inspection, pedal edema, tenderness. Negative for: calf tenderness Additional comments: b/l lower ext cellulites - Back Exam Back exam: NORMAL INSPECTION - Neurological Exam Neurological exam: Alert, CN II-XII Intact, Oriented x3, Reflexes Normal - Psychiatric Exam Psychiatric exam: Normal Affect, Normal Mood - Skin Skin Exam: Dry, Intact, Normal Color, Warm Results - Vital Signs Recent Vital Signs: Last Vital Signs Temp 97.9 F 12/10/16 05:45 Pulse 79 12/10/16 05:45 Resp 18 12/10/16 05:45 BP 131/78 12/10/16 05:45 Pulse Ox 96 12/10/16 05:45 Assessment & Plan - Assessment and Plan (Free Text) Assessment: 55 year old female PMH visual hallucination (sees bug) , HTN and DM presents to the ED on with complaints of bilateral leg pain and swelling likely 2/2 cellulites. 1. Cellulites - Afebrile, HR 80s, wbc 5.9 - Vanc x 1 given in the ED - ID consulted for recs - Ext US 11/27: negative for DVTs, consider repeat if swelling worse - Consider psych consult 2. DM: - ISS Humulin as protocol - ACHS 3. Pscyh Hx - Cont home Geodon and Amitriptyline - Cont home Depakote - Consider psych consult 4. HTN - Cont home Lisinopril daily 5. GI and DVT ppx Case and plan was reviewed and discussed with Dr Forde. <Tom Forde - Last Filed: 12/10/16 12:25> Results - Vital Signs Recent Vital Signs: Last Vital Signs Temp 97.9 F 12/10/16 08:20 Pulse 81 12/10/16 10:27 Resp 18 12/10/16 08:20 BP 154/92 H 12/10/16 10:27 Pulse Ox 96 12/10/16 05:45 - Labs Labs: Laboratory Results - last 24 hr 12/10/16 12/10/16 07:43 11:16 POC Glucose (mg/dL) 172 H 233 H Attending/Attestation - Attestation I have personally seen and examined this patient.: Yes I have fully participated in the care of the patient.: Yes I have reviewed all pertinent clinical information: Yes Notes (Text): 12/10/16 12:23 Patient was seen when she was in bed # 1 in the ER. Agree with history ,physical examination, assessment and plan.
[2016-12-10] MEDS: Pantoprazole 40 mg EC Tab PO SCH (08:23)
[2016-12-10] MEDS: Insulin Reg-MEDIUM-Coverage SC SCH ×4 (08:23→21:52)
[2016-12-10] MEDS: diltiaZEM 180 mg/24 Hours CD Cap PO SCH (10:27)
--- NOTE | 2016-12-10 10:32 | CP.PCM.CON ---
History of Present Illness - History of Present Illness History of Present Illness: 55 year old female with PMH of DM, morbid obesity with BMI 46, history of diverticulitis, GERD, depression, anxiety, bipolar disorder, CAD was recently admitted in [facility] for left lower extremity cellulitis. She was treated with IV Vancomycin then switched to PO Doxycycline and Keflex but she only took the Doxycycline. She comes back complaining of continued swelling of the same leg and now she is complaining that she scratched her anterior leg, and the swelling and erythema got worse again. She is also claiming that there were ants that bit her. She denies soaking her feet in water, no swimming, no fever or chills, no nausea or vomiting, no chest pain, no SOB, no headache or dizziness, no abdominal pain, no diarrhea, no dysuria. Infectious diseases consult is requested to further evaluate and manage. Review of Systems - Review of Systems All systems: reviewed and no additional remarkable complaints except (as per HPI ) Past Patient History - Infectious Disease Hx of Infectious Diseases: None - Tetanus Immunizations Tetanus Immunization: Unknown - Past Medical History & Family History Past Medical History?: Yes - Past Social History Smoking Status: Heavy Smoker > 10 Cigarettes Daily - CARDIAC Hx Cardiac Disorders: Yes Hx Hypertension: Yes - PULMONARY Hx Respiratory Disorders: Yes Hx Pneumonia: Yes - NEUROLOGICAL Hx Neurological Disorder: No - HEENT Hx HEENT Problems: No - RENAL Hx Chronic Kidney Disease: No - ENDOCRINE/METABOLIC Hx Endocrine Disorders: Yes Hx Diabetes Mellitus Type 2: Yes - HEMATOLOGICAL/ONCOLOGICAL Hx Blood Disorders: No - INTEGUMENTARY Hx Dermatological Problems: No Other/Comment: cellulitis to the lower extremities since 08/23 - MUSCULOSKELETAL/RHEUMATOLOGICAL Hx Musculoskeletal Disorders: Yes Hx Arthritis: Yes Hx Falls: No - GASTROINTESTINAL Hx Gastrointestinal Disorders: Yes Hx Diverticulitis: Yes Hx Gastroesophageal Reflux: Yes Other/Comment: colitis - GENITOURINARY/GYNECOLOGICAL Hx Genitourinary Disorders: Yes Hx Incontinence: Yes (stress incontinece) Hx Urinary Tract Infection: Yes - PSYCHIATRIC Hx Psychophysiologic Disorder: Yes Hx Anxiety: Yes Hx Bipolar Disorder: Yes Hx Depression: Yes Hx Schizophrenia: Yes Hx Substance Use: No - SURGICAL HISTORY Other/Comment: Colonoscopy. Endoscopy - ANESTHESIA Hx Anesthesia: Yes Hx Anesthesia Reactions: No Meds Allergies/Adverse Reactions: Allergies Allergy/AdvReac Type Severity Reaction Status Date / Time amoxicillin [From Augmentin] Allergy NAUSEA Verified 11/26/16 21:22 clarithromycin [From Biaxin] Allergy RASH Verified 11/26/16 21:22 clavulanic acid Allergy NAUSEA Verified 11/26/16 21:22 [From Augmentin] - Medications Medications: Current Medications Amitriptyline HCl (Elavil) 100 mg PO HS HOA Diltiazem HCl (Cardizem Cd) 360 mg PO DAILY HOA Divalproex Sodium (Depakote Er(Once Daily)) 1,000 mg PO HS HOA Furosemide (Lasix) 40 mg PO DAILY HOA Vancomycin HCl (Vancomycin 1gm) 1 gm in 250 mls @ 133.333 mls/hr IVPB STAT STA PRN Reason: Protocol Stop: 12/10/16 07:41 Last Admin: 12/10/16 06:40 Dose: 133.333 mls/hr Insulin Human Regular (Humulin R Med) 0 units SC ACHS HOA PRN Reason: Protocol Lisinopril (Zestril) 10 mg PO DAILY HOA Pantoprazole Sodium (Protonix Ec Tab) 40 mg PO ACB HOA Ziprasidone (Geodon Cap) 80 mg PO HS HOA PRN Reason: Protocol Physical Exam - Constitutional Appears: Non-toxic, No Acute Distress - Head Exam Head Exam: NORMAL INSPECTION - ENT Exam ENT Exam: Mucous Membranes Moist - Neck Exam Neck exam: Negative for: Lymphadenopathy, Meningismus - Respiratory Exam Respiratory Exam: Decreased Breath Sounds - Cardiovascular Exam Cardiovascular Exam: +S1, +S2 - GI/Abdominal Exam GI & Abdominal Exam: Soft. absent: Tenderness Results - Vital Signs Recent Vital Signs: Last Vital Signs Temp 97.9 F 12/10/16 05:45 Pulse 79 12/10/16 05:45 Resp 18 12/10/16 05:45 BP 131/78 12/10/16 05:45 Pulse Ox 96 12/10/16 05:45 Assessment & Plan - Assessment and Plan (Free Text) Plan: Assessment consider Left lower extremity cellulitis, recurrent, R/O lymphatic drainage problem / venous stasis DM morbid obesity with BMI 46 history of diverticulitis GERD depression anxiety bipolar disorder CAD Plan Will start patient on Zyvox and will monitor clinically; will order MRI of the left leg will follow clinically
--- NOTE | 2016-12-10 13:26 | MRI ---
PROCEDURE: MRI of the left lower extremity without contrast HISTORY: rule out lower leg osteomyelitis / myositis COMPARISON: TECHNIQUE: MRI of the left lower extremity was performed from the knee to the ankle joint. The right leg was also included in the coronal plane. FINDINGS: There is subcutaneous edema surrounding the leg consistent with cellulitis or passive edema. Multiple discrete fluid-filled bursa are seen on the lateral aspect of the knee joint. The bone marrow signal intensity is normal with no evidence of osteomyelitis. IMPRESSION: No evidence of osteomyelitis
--- NOTE | 2016-12-10 13:54 | US ---
HISTORY: Leg pain and swelling. Evaluate for DVT PHYSICIAN(S): Aric Nielsen MD. TECHNIQUE: Duplex sonography and color-flow Doppler with graded compression were used to evaluate the deep venous systems of both lower extremities. The exam is somewhat limited by edema. FINDINGS: The visualized deep venous systems of both lower extremities are sonographically normal and compressible. Normal wave forms and augmentation are seen. There is no sonographic evidence for deep venous thrombosis in the visualized segments of both lower extremities. IMPRESSION: No sonographic evidence for deep venous thrombosis in the visualized segments of both lower extremities.
[2016-12-10] MEDS: Aztreonam 1 Gm in NS 100mL 100 ML IVPB SCH ×2 (15:01→21:48)
[2016-12-10] MEDS: Oxycodone/Acetaminophen 5/325 mg Tab PO SCH ×2 (15:08→21:53)
[2016-12-10 17:03] VITALS: RESP 20
[2016-12-10] MEDS: Vancomycin 1.5 GM in Sodium Chloride 0.9% 500 ML IVPB SCH (17:49)
[2016-12-10] MEDS ORDERED: Divalproex 500 mg ER (ONCE DAILY formulation) PO SCH (22:00)
[2016-12-11] MEDS: Vancomycin 1.5 GM in Sodium Chloride 0.9% 500 ML IVPB SCH (05:10)
[2016-12-11] MEDS: Oxycodone/Acetaminophen 5/325 mg Tab PO SCH (05:14)
[2016-12-11] MEDS: Aztreonam 1 Gm in NS 100mL 100 ML IVPB SCH (05:14)
[2016-12-11 06:56] LABS: BASO # 0.02 K/mm3 (0.0-2.0); BASO % 0.4 % (0.0-3.0); EOS # 0.2 (0.0-0.7); EOS % 3.1 % (1.5-5.0); GRAN # 2.45 (1.4-6.5); GRAN % 50.9 % (50.0-68.0); LYMPH # 1.9 (1.2-3.4); LYMPH % 38.8 % (22.0-35.0); MEAN CORPUSCULAR HEMOGLOBIN 28.6 pg (25.0-35.0); MEAN CORPUSCULAR HGB CONC 32.9 g/dl (31.0-37.0); MEAN PLATELET VOLUME 9.4 fl (7.0-11.0); MONO # 0.3 (0.1-0.6); MONO % 6.8 % (1.0-6.0); PLATELET COUNT 193 10^3/uL (120.0-450.0); RBC 3.84 10^6/uL (3.5-6.1); RED CELL DISTRIBUTION WIDTH 13.4 % (11.5-14.5); WHITE BLOOD COUNT 4.8 10^3/ul (4.5-11.0)
[2016-12-11 07:09] LABS: ALB/GLOB RATIO 1.1 (1.1-1.8); ALT/SGPT 20 U/L (7-56); AST/SGOT 13 U/L (15-39); BLOOD UREA NITROGEN 16 mg/dL (7-21); CALCIUM 8.7 mg/dL (8.4-10.5); GFR AFRICAN-AMERICAN > 60; GFR NON-AFRICAN AMERICAN > 60
[2016-12-11] MEDS: Pantoprazole 40 mg EC Tab PO SCH (08:23)
[2016-12-11] MEDS: Insulin Reg-MEDIUM-Coverage SC SCH ×2 (08:23→11:40)
[2016-12-11 08:38] VITALS: BP 143/96; PULSE 77; TEMP 98; O2SAT 95
[2016-12-11] MEDS: diltiaZEM 180 mg/24 Hours CD Cap PO SCH (09:39)
--- NOTE | 2016-12-11 14:05 | CP.PCM.PN ---
Subjective - Date & Time of Evaluation Date of Evaluation: 12/11/16 Time of Evaluation: 12:35 - Subjective Subjective: Comfortable, not in distress, afebrile, less swelling and less pain in both legs. Objective - Vital Signs/Intake and Output Vital Signs (last 24 hours): Temp Pulse Resp BP Pulse Ox 98.0 F 77 20 143/96 H 95 12/11/16 06:00 12/11/16 06:00 12/11/16 06:00 12/11/16 06:00 12/11/16 06:00 - Medications Medications: Current Medications Acetaminophen (Tylenol 325mg Tab) 650 mg PO Q6H PRN PRN Reason: Pain, moderate (4-7) Alprazolam (Xanax) 1 mg PO TID PRN; Protocol PRN Reason: Anxiety Last Admin: 12/11/16 05:15 Dose: 1 mg Amitriptyline HCl (Elavil) 100 mg PO HS [facility] Last Admin: 12/10/16 21:52 Dose: 100 mg Diltiazem HCl (Cardizem Cd) 360 mg PO DAILY [facility] Last Admin: 12/10/16 10:27 Dose: 360 mg Divalproex Sodium (Depakote Er(Once Daily)) 1,000 mg PO HS [facility] Last Admin: 12/10/16 21:51 Dose: 1,000 mg Furosemide (Lasix) 40 mg PO DAILY [facility] Last Admin: 12/10/16 10:26 Dose: 40 mg Vancomycin HCl 1.5 gm/ Sodium (Chloride) 500 mls @ 167 mls/hr IVPB Q12H [facility]A PRN Reason: Protocol Last Admin: 12/11/16 05:10 Dose: 167 mls/hr Aztreonam (Azactam 1 Gm) 100 mls @ 100 mls/hr IVPB Q8 HOA PRN Reason: Protocol Stop: 12/17/16 14:01 Last Admin: 12/11/16 05:14 Dose: 100 mls/hr Insulin Human Regular (Humulin R Med) 0 units SC ACHS [facility]A PRN Reason: Protocol Last Admin: 12/11/16 08:23 Dose: 1 units Lisinopril (Zestril) 10 mg PO DAILY [facility] Last Admin: 12/10/16 10:27 Dose: 10 mg Oxycodone/Acetaminophen (Percocet 5/325 Mg Tab) 1 tab PO Q8 [facility]A Stop: 12/13/16 15:01 Last Admin: 12/11/16 05:14 Dose: 1 tab Pantoprazole Sodium (Protonix Ec Tab) 40 mg PO ACB [facility] Last Admin: 12/11/16 08:23 Dose: 40 mg Ziprasidone (Geodon Cap) 80 mg PO HS [facility] PRN Reason: Protocol Last Admin: 12/10/16 21:52 Dose: 80 mg - Labs Labs: 12/11/16 06:00 12/11/16 06:00 - Constitutional Appears: Non-toxic, No Acute Distress - Head Exam Head Exam: NORMAL INSPECTION - ENT Exam ENT Exam: Mucous Membranes Moist - Neck Exam Neck Exam: absent: Meningismus - Respiratory Exam Respiratory Exam: Decreased Breath Sounds - Cardiovascular Exam Cardiovascular Exam: +S1, +S2 - GI/Abdominal Exam GI & Abdominal Exam: Soft. absent: Tenderness - Extremities Exam Additional comments: both lower extremities with decreased swelling and erythema Assessment and Plan - Assessment and Plan (Free Text) Plan: Assessment consider Left lower extremity cellulitis, recurrent, R/O lymphatic drainage problem / venous stasis, clinically improving; no evidence of deeper infection on MRI DM morbid obesity with BMI 46 history of diverticulitis GERD depression anxiety bipolar disorder CAD Plan on Vancomycin and Azactam (day 2); reviewed MRI of the left leg; when ready for discharge, the patient can be switched to PO Keflex and Doxycycline to complete 7-10 days of therapy - discussed with Dr. Hutchison
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
--- NOTE | 2016-12-11 16:23 | CP.PCM.DIS ---
<CecyHugo - Last Filed: 12/11/16 16:04> Provider - Provider Date of Admission: 12/10/16 05:49 Attending physician: Pa Hutchison MD Primary care physician: Darek Ramirez DO Consults: Infectious Disease: Dr. Robert Alcaraz Time Spent in preparation of Discharge (in minutes): 30 Diagnosis - Discharge Diagnosis (1) Cellulitis Status: Acute Hospital Course - Lab Results Lab Results: Micro Results 12/10/16 08:30 Blood-Venous Blood Culture - Preliminary NO GROWTH AFTER 24 HOURS 12/10/16 08:30 Blood-Venous Blood Culture - Preliminary NO GROWTH AFTER 24 HOURS Most Recent Lab Values WBC 4.8 10^3/ul (4.5-11.0) 12/11/16 06:00 RBC 3.84 10^6/uL (3.5-6.1) 12/11/16 06:00 Hgb 11.0 gm/dL (12.0-16.0) L 12/11/16 06:00 Hct 33.4 % (36.0-48.0) L 12/11/16 06:00 MCV 87.0 fL (80.0-105.0) 12/11/16 06:00 MCH 28.6 pg (25.0-35.0) 12/11/16 06:00 MCHC 32.9 g/dl (31.0-37.0) 12/11/16 06:00 RDW 13.4 % (11.5-14.5) 12/11/16 06:00 Plt Count 193 10^3/uL (120.0-450.0) 12/11/16 06:00 MPV 9.4 fl (7.0-11.0) 12/11/16 06:00 Gran % 50.9 % (50.0-68.0) 12/11/16 06:00 Lymph % (Auto) 38.8 % (22.0-35.0) H 12/11/16 06:00 Durham % (Auto) 6.8 % (1.0-6.0) H 12/11/16 06:00 Eos % (Auto) 3.1 % (1.5-5.0) 12/11/16 06:00 Baso % (Auto) 0.4 % (0.0-3.0) 12/11/16 06:00 Gran # 2.45 (1.4-6.5) 12/11/16 06:00 Lymph # 1.9 (1.2-3.4) 12/11/16 06:00 Durham # 0.3 (0.1-0.6) 12/11/16 06:00 Eos # 0.2 (0.0-0.7) 12/11/16 06:00 Baso # 0.02 K/mm3 (0.0-2.0) 12/11/16 06:00 Sodium 141 mmol/L (132-148) 12/11/16 06:00 Potassium 3.9 mmol/L (3.6-5.0) 12/11/16 06:00 Chloride 103 mmol/L (98-107) 12/11/16 06:00 Carbon Dioxide 30 mmol/L (21-33) 12/11/16 06:00 Anion Gap 12 (10-20) 12/11/16 06:00 BUN 16 mg/dL (7-21) 12/11/16 06:00 Creatinine 0.7 mg/dL (0.5-1.4) 12/11/16 06:00 Est GFR ( Amer) > 60 12/11/16 06:00 Est GFR (Non-Af Amer) > 60 12/11/16 06:00 POC Glucose (mg/dL) 313 mg/dL (65-110) H 12/11/16 11:32 Random Glucose 179 mg/dL (70-110) H 12/11/16 06:00 Hemoglobin A1c 8.2 % (4.2-6.5) H 12/10/16 08:30 Calcium 8.7 mg/dL (8.4-10.5) 12/11/16 06:00 Total Bilirubin 0.3 mg/dL (0.2-1.3) 12/11/16 06:00 AST 13 U/L (15-39) L 12/11/16 06:00 ALT 20 U/L (7-56) 12/11/16 06:00 Alkaline Phosphatase 72 U/L (38-133) 12/11/16 06:00 Total Protein 5.8 g/dL (5.8-8.3) 12/11/16 06:00 Albumin 3.0 g/dL (3.0-4.8) 12/11/16 06:00 Globulin 2.7 gm/dL 12/11/16 06:00 Albumin/Globulin Ratio 1.1 (1.1-1.8) 12/11/16 06:00 Valproic Acid 35 ug/mL (50.0-100.0) L 12/11/16 10:30 - Hospital Course Hospital Course: The patient is a 56 year old woman with a PMH of DM, obesity, CAD, diverticulitis, GERD, depression, anxiety and bipolar disorder, presented to the [facility] emergency department with recurrent b/l LE cellulitis. The patient was afebrile in the ED and was noted to have redness, swelling of her legs along with a WBC of 5.9. She was treated with one dose of vancomycin in the ED before being admitted for observation. While on the floor she was evaluated by Infectious disease. An MRI was done showing no evidence of osteomyelitis. ID recommended placing patient on IV vancomycin and Azactam with plan to switch to Keflex and Doxycycline for 10 days upon discharge. The patient symptoms improved over her hospital course and she was evaluated and assessed to be discharged for outpatient follow up. - Date & Time of H&P Date of H&P: 12/10/16 Time of H&P: 07:10 Discharge Exam - Head Exam Head Exam: NORMAL INSPECTION - Eye Exam Eye Exam: EOMI, PERRL - ENT Exam ENT Exam: Mucous Membranes Moist - Neck Exam Neck exam: Full Rom - Respiratory Exam Respiratory Exam: Clear to PA & Lateral, NORMAL BREATHING PATTERN - Cardiovascular Exam Cardiovascular Exam: REGULAR RHYTHM, +S1, +S2 - GI/Abdominal Exam GI & Abdominal Exam: Normal Bowel Sounds, Soft - Extremities Exam Extremities exam: full ROM Additional comments: minimal redness and warmth of lower extremities bilaterally, improved from initial presentation - Neurological Exam Neurological exam: Alert, CN II-XII Intact, Normal Gait, Oriented x3 - Psychiatric Exam Psychiatric exam: Normal Affect, Normal Mood - Skin Skin Exam: Dry, Erythema (minimally bilaterally lower extremities ), Warm Discharge Plan - Discharge Medications Prescriptions: Mupirocin 2% Ointment [Bactroban Ointment] 1 appl TP BID 10 Days Doxycycline Hyclate 100 mg PO BID #20 capsule Cephalexin [Keflex] 250 mg PO Q8 #21 capsule - Follow Up Plan Condition: FAIR Disposition: HOME/ ROUTINE Instructions: Cellulitis (DC), Cellulitis (GEN) Additional Instructions: 1. Follow up with PMD DR. Mancera/DR. Ramirez in 3 days. 2. Complete antibiotics. 3. Please monitor and control blood glucose levels 4. Seek medical attention if your symptoms do not improve or worsen Referrals: Darek Ramirez DO [Primary Care Provider] - <ArcadioPa shanks - Last Filed: 12/11/16 16:44> Provider - Provider Date of Admission: 12/10/16 05:49 Attending physician: Mary Sy MD Primary care physician: Darek Ramirez DO Hospital Course - Lab Results Lab Results: Micro Results 12/10/16 08:30 Blood-Venous Blood Culture - Preliminary NO GROWTH AFTER 24 HOURS 12/10/16 08:30 Blood-Venous Blood Culture - Preliminary NO GROWTH AFTER 24 HOURS Most Recent Lab Values WBC 4.8 10^3/ul (4.5-11.0) 12/11/16 06:00 RBC 3.84 10^6/uL (3.5-6.1) 12/11/16 06:00 Hgb 11.0 gm/dL (12.0-16.0) L 12/11/16 06:00 Hct 33.4 % (36.0-48.0) L 12/11/16 06:00 MCV 87.0 fL (80.0-105.0) 12/11/16 06:00 MCH 28.6 pg (25.0-35.0) 12/11/16 06:00 MCHC 32.9 g/dl (31.0-37.0) 12/11/16 06:00 RDW 13.4 % (11.5-14.5) 12/11/16 06:00 Plt Count 193 10^3/uL (120.0-450.0) 12/11/16 06:00 MPV 9.4 fl (7.0-11.0) 12/11/16 06:00 Gran % 50.9 % (50.0-68.0) 12/11/16 06:00 Lymph % (Auto) 38.8 % (22.0-35.0) H 12/11/16 06:00 Durham % (Auto) 6.8 % (1.0-6.0) H 12/11/16 06:00 Eos % (Auto) 3.1 % (1.5-5.0) 12/11/16 06:00 Baso % (Auto) 0.4 % (0.0-3.0) 12/11/16 06:00 Gran # 2.45 (1.4-6.5) 12/11/16 06:00 Lymph # 1.9 (1.2-3.4) 12/11/16 06:00 Durham # 0.3 (0.1-0.6) 12/11/16 06:00 Eos # 0.2 (0.0-0.7) 12/11/16 06:00 Baso # 0.02 K/mm3 (0.0-2.0) 12/11/16 06:00 Sodium 141 mmol/L (132-148) 12/11/16 06:00 Potassium 3.9 mmol/L (3.6-5.0) 12/11/16 06:00 Chloride 103 mmol/L (98-107) 12/11/16 06:00 Carbon Dioxide 30 mmol/L (21-33) 12/11/16 06:00 Anion Gap 12 (10-20) 12/11/16 06:00 BUN 16 mg/dL (7-21) 12/11/16 06:00 Creatinine 0.7 mg/dL (0.5-1.4) 12/11/16 06:00 Est GFR ( Amer) > 60 12/11/16 06:00 Est GFR (Non-Af Amer) > 60 12/11/16 06:00 POC Glucose (mg/dL) 313 mg/dL (65-110) H 12/11/16 11:32 Random Glucose 179 mg/dL (70-110) H 12/11/16 06:00 Hemoglobin A1c 8.2 % (4.2-6.5) H 12/10/16 08:30 Calcium 8.7 mg/dL (8.4-10.5) 12/11/16 06:00 Total Bilirubin 0.3 mg/dL (0.2-1.3) 12/11/16 06:00 AST 13 U/L (15-39) L 12/11/16 06:00 ALT 20 U/L (7-56) 12/11/16 06:00 Alkaline Phosphatase 72 U/L (38-133) 12/11/16 06:00 Total Protein 5.8 g/dL (5.8-8.3) 12/11/16 06:00 Albumin 3.0 g/dL (3.0-4.8) 12/11/16 06:00 Globulin 2.7 gm/dL 12/11/16 06:00 Albumin/Globulin Ratio 1.1 (1.1-1.8) 12/11/16 06:00 Valproic Acid 35 ug/mL (50.0-100.0) L 12/11/16 10:30 Attending/Attestation - Attestation I have personally seen and examined this patient.: Yes I have fully participated in the care of the patient.: Yes I have reviewed all pertinent clinical information, including history, physical exam and plan: Yes Notes (Text): 12/11/16 16:40 attending note; Patient seen and examined with resident. Patient is a 55 year old female [facility] visual hallucination, HTN and DM presents to the ED on with complaints of bilateral leg pain and swelling. treated with IV vancomycin and Azactam. Doppler is negative for DVT. MRI is negative for osteomyelitis. diabetes; continue insulin. Discharge home with po doxycycline and Keflex. ID evaluation appreciated. Patient will follow-up with PMD / or DR. tobias upon discharge. Diagnosis; Cellulitis Diabetes Hypertension Obesity 12/11/16 16:42
== END 2016-12-11 13:59 | disposition home or self-care (01) ==
LOC: ED 05:32 → ERH 05:49 → 3RSO 07:19
PROVIDERS: ADMIT Internal Medicine; ATTEND Internal Medicine
DX: L03.116 Cellulitis of left lower limb (principal); L03.115 Cellulitis of right lower limb; I10 Essential (primary) hypertension; E11.9 Type 2 diabetes mellitus without complications; R44.1 Visual hallucinations; Z68.42 Body mass index [BMI] 45.0-49.9, adult; K21.9 Gastro-esophageal reflux disease without esophagitis; I25.10 Atherosclerotic heart disease of native coronary artery without angina pectoris; F41.9 Anxiety disorder, unspecified; F31.9 Bipolar disorder, unspecified; E66.01 Morbid (severe) obesity due to excess calories; F25.9 Schizoaffective disorder, unspecified; Z79.4 Long term (current) use of insulin
CPT/HCPCS: 36415; 73718; 80053; 80164; 82948; 83036; 85025; 87040; 93970; 96365; 99284; G0378; J7040

== ENCOUNTER 2016-12-24 11:58 | Emergency (ER) | payer OTHER ==
[2016-12-24 11:58] VITALS: BMI 45.7
[2016-12-24 12:10] VITALS: RESP 18; TEMP 98.6; O2SAT 97
--- NOTE | 2016-12-24 12:26 | ED PDOC ---
Arrival/HPI - General Chief Complaint: Trauma Time Seen by Provider: 12/24/16 12:04 Historian: Patient - History of Present Illness Narrative History of Present Illness (Text): 12/24/16 12:23 Anna Marie Desir is a 56 year old female, with a history of diabetes and hypertension, presents to the emergency department complaining of pain and bruising to left forehead s/p fall prior to arrival. States she was trying to place her cat on the cat carrier when she lost balance and hit her forehead on the footboard. Denies any loss of consciousness. Reports she is not on any blood thinners. Denies fever, chills, dizziness, nausea, chest pain, difficulty breathing, weakness to extremity, or any other complaints. Time/Duration: Prior to Arrival Symptom Onset: Sudden Symptom Course: Unchanged Activities at Onset: Significant Context: Home Past Medical History - Provider Review Nursing Documentation Reviewed: Yes - Past History Past History: Non-Contributing - Infectious Disease Hx of Infectious Diseases: None - Tetanus Immunization Tetanus Immunization: Unknown - Past Medical History Past Medical History: Non-Contributing - Cardiac Hx Cardiac Disorders: Yes Hx Hypertension: Yes - Pulmonary Hx Respiratory Disorders: Yes Hx Pneumonia: Yes - Neurological Hx Neurological Disorder: No - HEENT Hx HEENT Disorder: No - Renal Hx Renal Disorder: No - Endocrine/Metabolic Hx Endocrine Disorders: Yes Hx Diabetes Mellitus Type 2: Yes - Hematological/Oncological Hx Blood Disorders: No - Integumentary Hx Dermatological Disorder: No Other/Comment: cellulitis to the lower extremities since 08/23 - Musculoskeletal/Rheumatological Hx Musculoskeletal Disorders: Yes Hx Arthritis: Yes Hx Falls: No - Gastrointestinal Hx Gastrointestinal Disorders: Yes Hx Diverticulitis: Yes Hx Gastroesophageal Reflux: Yes Other/Comment: colitis - Genitourinary/Gynecological Hx Genitourinary Disorders: Yes Hx Incontinence: Yes (stress incontinece) Hx Urinary Tract Infection: Yes - Psychiatric Hx Psychophysiologic Disorder: Yes Hx Anxiety: Yes Hx Bipolar Disorder: Yes Hx Depression: Yes Hx Schizophrenia: Yes Hx Substance Use: No - Past Surgical History Past Surgical History: Non-Contributing - Surgical History Other/Comment: Colonoscopy. Endoscopy - Anesthesia Hx Anesthesia: Yes Hx Anesthesia Reactions: No - Suicidal Assessment Feels Threatened In Home Enviroment: No Family/Social History - Physician Review Nursing Documentation Reviewed: Yes Family/Social History: No Known Family HX Smoking Status: Heavy Smoker > 10 Cigarettes Daily Hx Alcohol Use: No Hx Substance Use: No Hx Substance Use Treatment: No Allergies/Home Meds Allergies/Adverse Reactions: Allergies amoxicillin [From Augmentin] Allergy (Verified 11/26/16 21:22) NAUSEA clarithromycin [From Biaxin] Allergy (Verified 11/26/16 21:22) RASH clavulanic acid [From Augmentin] Allergy (Verified 11/26/16 21:22) NAUSEA Home Medications: Home Meds Medication Instructions Recorded Confirmed Enalapril Maleate 10 mg PO DAILY 01/09/15 12/24/16 Pantoprazole Sodium [Protonix] 40 mg PO DAILY 08/25/16 12/24/16 [id number] CD [Cardizem CD] 340 mg PO DAILY 08/25/16 12/24/16 Insulin Detemir [Levemir] 0 units SC HS 09/22/16 12/24/16 ALPRAZolam [Xanax] PO TID 12/10/16 Review of Systems - Physician Review All systems were reviewed & negative as marked: Yes - Review of Systems Constitutional: Normal. absent: Fatigue, Fevers Respiratory: Normal. absent: SOB, Cough, Sputum Cardiovascular: absent: Chest Pain, Palpitations Genitourinary Female: Normal. absent: Dysuria Neurological: Headache. absent: Dizziness, Focal Weakness Psychiatric: Normal Physical Exam Vital Signs Reviewed: Yes Vital Signs Temp Pulse Resp BP Pulse Ox 12/24/16 14:10 86 18 138/71 97 12/24/16 12:10 98.6 F 97 H 18 143/76 97 Temperature: Afebrile Blood Pressure: Normal Pulse: Regular Respiratory Rate: Normal Appearance: Positive for: Well-Appearing, Non-Toxic, Comfortable Pain Distress: None Mental Status: Positive for: Alert and Oriented X 3 - Systems Exam Head: Present: Normocephalic, Ecchymosis (small area of ecchymosis to left frontal forhead ) Pupils: Present: PERRL Conjunctiva: Present: Normal Mouth: Present: Moist Mucous Membranes Respiratory/Chest: Present: Clear to Auscultation, Good Air Exchange. No: Respiratory Distress, Accessory Muscle Use Cardiovascular: Present: Regular Rate and Rhythm, Normal S1, S2. No: Murmurs Abdomen: Present: Normal Bowel Sounds. No: Tenderness, Distention, Peritoneal Signs Upper Extremity: Present: Normal Inspection. No: Cyanosis, Edema Lower Extremity: Present: Normal Inspection. No: Edema Neurological: Present: GCS=15, CN II-XII Intact, Speech Normal, Motor Func Grossly Intact, Normal Sensory Function Skin: Present: Warm, Dry, Normal Color. No: Rashes Psychiatric: Present: Alert, Oriented x 3, Normal Insight, Normal Concentration Medical Decision Making ED Course and Treatment: 12/24/16 12:27 Impression: A 56 year old female who presents to the emergency department complaining of bruising to left forehead following fall prior to arrival. Plan: -- CT Head -- Tylenol -- Reassess and disposition Progress Notes: 12/24/16 14:17 CT Head: IMPRESSION: No evidence of acute intracranial hemorrhage intracranial collection mass effect or midline shift. Mild atrophy and mild chronic microvascular ischemic disease. Left frontal soft tissue swelling. Patient is stable for discharge. advised to follow up with PMD within few days and present to emergency department for new/worsening symptoms. - RAD Interpretation Narrative RAD Interpretations (Text): CT HEAD: FINDINGS: HEMORRHAGE: No intracranial hemorrhage. BRAIN: No mass effect or edema. Mild atrophy is again noted. Mild white matter changes are also again seen suggestive of chronic microvascular ischemic disease. VENTRICLES: Unremarkable. No hydrocephalus. CALVARIUM: Unremarkable. PARANASAL SINUSES: Unremarkable as visualized. No significant inflammatory changes. MASTOID AIR CELLS: Unremarkable as visualized. No inflammatory changes. OTHER FINDINGS: None. IMPRESSION: No evidence of acute intracranial hemorrhage intracranial collection mass effect or midline shift. Mild atrophy and mild chronic microvascular ischemic disease. Left frontal soft tissue swelling. Radiology Orders: 12/24/16 12:21 HEAD W/O CONTRAST [CT] Stat [employer] [place] Paver Operator: Radiologist - Medication Orders Current Medication Orders: Discontinued Medications Acetaminophen (Tylenol 325mg Tab) 650 mg PO STAT STA Stop: 12/24/16 12:25 Last Admin: 12/24/16 12:46 Dose: 650 mg Disposition/Present on Arrival - Present on Arrival Any Indicators Present on Arrival: No History of DVT/PE: No History of Uncontrolled Diabetes: No Urinary Catheter: No History of Decub. Ulcer: No History Surgical Site Infection Following: None - Disposition Have Diagnosis and Disposition been Completed?: Yes Diagnosis: Fall Disposition: HOME/ ROUTINE Disposition Time: 02:00 Condition: STABLE Discharge Instructions (ExitCare): Head Injury (ED) Additional Instructions: please follow up with your doctor. return to er with worsening symptoms or concerns. Prescriptions: Naproxen [Naprosyn] 500 mg PO BID PRN #14 tablet PRN Reason: Pain, Mild (1-3) Referrals: Zana Mancera MD [Primary Care Provider] - Follow up with primary Forms: F[employer]I (Frisian)
--- NOTE | 2016-12-24 14:03 | CT ---
PROCEDURE: CT HEAD WITHOUT CONTRAST. HISTORY: greer COMPARISON: Comparison is made to previous study dated 04/22/2014 TECHNIQUE: Axial computed tomography images were obtained through the head/brain without intravenous contrast. Radiation dose: Total exam DLP = 747.7 mGy-cm. This CT exam was performed using one or more of the following dose reduction techniques: Automated exposure control, adjustment of the mA and/or kV according to patient size, and/or use of iterative reconstruction technique. FINDINGS: HEMORRHAGE: No intracranial hemorrhage. BRAIN: No mass effect or edema. Mild atrophy is again noted. Mild white matter changes are also again seen suggestive of chronic microvascular ischemic disease. VENTRICLES: Unremarkable. No hydrocephalus. CALVARIUM: Unremarkable. PARANASAL SINUSES: Unremarkable as visualized. No significant inflammatory changes. MASTOID AIR CELLS: Unremarkable as visualized. No inflammatory changes. OTHER FINDINGS: None. IMPRESSION: No evidence of acute intracranial hemorrhage intracranial collection mass effect or midline shift. Mild atrophy and mild chronic microvascular ischemic disease. Left frontal soft tissue swelling.
[2016-12-24 14:10] VITALS: BP 138/71; PULSE 86
== END 2016-12-24 14:39 | disposition home or self-care (01) ==
LOC: ED 11:58
DX: S00.83XA Contusion of other part of head, initial encounter (principal); W18.30XA Fall on same level, unspecified, initial encounter; Y92.009 Unspecified place in unspecified non-institutional (private) residence as the place of occurrence of the external cause

== ENCOUNTER 2017-01-29 15:02 | Emergency (ER) | payer MEDICAID, OTHER ==
[2017-01-29 15:02] VITALS: BMI 45.7
--- NOTE | 2017-01-29 15:35 | ED PDOC ---
Arrival/HPI - General Chief Complaint: Lower Extremity Problem/Injury Time Seen by Provider: 01/29/17 15:07 Historian: Patient - History of Present Illness Narrative History of Present Illness (Text): 01/29/17 15:31 56yr old female presents today with left leg swelling and erythema that recently developed again 2 days ago. pt states she has been having problems with infections in both legs over the past few months. Patient states after seeing the residential treatment counselor and taking antibiotics the rash finally went away. Patient states just recently the rash returned again. Patient is complaining of slight pain and swelling to the left leg. She denies trauma or injury. Denies fevers or chills. No chest pain or shortness of breath. Patient states she is currently taking Percocets at home for the pain as prescribed by her primary care physician. Patient states she was just seen in the primary care physician' s office 2 weeks ago and was given a 30 day supply of Percocet for pain. 01/29/17 15:33 Time/Duration: Other (2days) Symptom Onset: Sudden Symptom Course: Worsening Quality: Aching Severity Level: 5 Past Medical History - Provider Review Nursing Documentation Reviewed: Yes - Travel History Have you recently traveled outside [place] w/in the past 3 mons?: No - Past History Past History: Non-Contributing - Infectious Disease Hx of Infectious Diseases: None - Tetanus Immunization Tetanus Immunization: Unknown - Past Medical History Past Medical History: Non-Contributing - Cardiac Hx Cardiac Disorders: Yes Hx Hypertension: Yes - Pulmonary Hx Respiratory Disorders: Yes Hx Pneumonia: Yes - Neurological Hx Neurological Disorder: No - HEENT Hx HEENT Disorder: No - Renal Hx Renal Disorder: No - Endocrine/Metabolic Hx Endocrine Disorders: Yes Hx Diabetes Mellitus Type 2: Yes - Hematological/Oncological Hx Blood Disorders: No - Integumentary Hx Dermatological Disorder: No Other/Comment: cellulitis to the lower extremities since 08/23 - Musculoskeletal/Rheumatological Hx Musculoskeletal Disorders: Yes Hx Arthritis: Yes Hx Falls: No - Gastrointestinal Hx Gastrointestinal Disorders: Yes Hx Diverticulitis: Yes Hx Gastroesophageal Reflux: Yes Other/Comment: colitis - Genitourinary/Gynecological Hx Genitourinary Disorders: Yes Hx Incontinence: Yes (stress incontinece) Hx Urinary Tract Infection: Yes - Psychiatric Hx Psychophysiologic Disorder: Yes Hx Anxiety: Yes Hx Bipolar Disorder: Yes Hx Depression: Yes Hx Schizophrenia: Yes Hx Substance Use: No - Past Surgical History Past Surgical History: Non-Contributing - Surgical History Other/Comment: Colonoscopy. Endoscopy - Anesthesia Hx Anesthesia: Yes Hx Anesthesia Reactions: No - Suicidal Assessment Feels Threatened In Home Enviroment: No Family/Social History - Physician Review Nursing Documentation Reviewed: Yes Family/Social History: Unknown Family HX Smoking Status: Heavy Smoker > 10 Cigarettes Daily Hx Alcohol Use: No Hx Substance Use: No Hx Substance Use Treatment: No Allergies/Home Meds Allergies/Adverse Reactions: Allergies amoxicillin [From Augmentin] Allergy (Verified 01/29/17 15:16) NAUSEA clarithromycin [From Biaxin] Allergy (Verified 01/29/17 15:16) RASH clavulanic acid [From Augmentin] Allergy (Verified 01/29/17 15:16) NAUSEA Home Medications: Home Meds Medication Instructions Recorded Confirmed Enalapril Maleate 10 mg PO DAILY 01/09/15 01/29/17 Pantoprazole Sodium [Protonix] 40 mg PO DAILY 08/25/16 01/29/17 [id number] CD [Cardizem CD] 340 mg PO DAILY 08/25/16 01/29/17 Insulin Detemir [Levemir] 0 units SC HS 09/22/16 01/29/17 ALPRAZolam [Xanax] 1 mg PO TID 12/10/16 01/29/17 Review of Systems - Review of Systems Constitutional: absent: Fatigue, Fevers Respiratory: absent: SOB, Cough Cardiovascular: absent: Chest Pain, Palpitations Gastrointestinal: absent: Abdominal Pain, Nausea, Vomiting Genitourinary Female: absent: Dysuria, Frequency Musculoskeletal: Arthralgias. absent: Back Pain, Neck Pain Skin: Rash. absent: Pruritis Neurological: absent: Headache, Dizziness Psychiatric: absent: Anxiety, Depression Physical Exam Vital Signs Reviewed: Yes Vital Signs Temp Pulse Resp BP Pulse Ox 01/29/17 15:12 98.9 F 96 H 18 115/73 97 Temperature: Afebrile Blood Pressure: Normal Pulse: Regular Respiratory Rate: Normal Appearance: Positive for: Well-Appearing, Non-Toxic, Comfortable Pain Distress: None Mental Status: Positive for: Alert and Oriented X 3 - Systems Exam Head: Present: Atraumatic Mouth: Present: Moist Mucous Membranes Neck: Present: Normal Range of Motion Respiratory/Chest: Present: Clear to Auscultation, Good Air Exchange. No: Respiratory Distress, Accessory Muscle Use Cardiovascular: Present: Regular Rate and Rhythm, Normal S1, S2. No: Murmurs Abdomen: No: Tenderness Back: Present: Normal Inspection Lower Extremity: Present: CALF TENDERNESS (+ left sided lower leg tenderness, slight erythema extending to the proximal aspect of the left lower leg. sensation and distal pulses intact; cap refill <2. ), Normal ROM, Swelling, Erythema, Neurovascularly Intact, Capillary Refill < 2 s. No: Deformity Neurological: Present: GCS=15, Speech Normal Skin: Present: Warm, Dry Psychiatric: Present: Alert, Oriented x 3 Medical Decision Making ED Course and Treatment: 01/29/17 15:40 pt non toxic well appearing; no distress. c/o erythema to left leg x 2 days. vitals stable. afebrile. no distress. cbc WNL cmp: GLUCOSE; 250 bnp wnl venous duplex of lower leg: no dvt; verbal report from US tech. 01/29/17 15:46 Pt went to US and in US she refused duplex of the lower extremity. 01/29/17 17:07 PT NOW AGREES TO ULTRASOUND OF LOWER LEG; ORTHOTIC AIDE CALLED IN TO HOSPITAL. b/l duplex of lower leg; negative for dvt verbal report from [facility]. pt with left lower leg swelling and minimal erythema/discoloration; pt with chronic rash to lower legs; ? stasis dermatitis vs cellulitis. will start patient on doxycyline. pt was advised to f/u with pmd and return if symptoms worsen,persist or if new symptoms develop. Patient verbalizes understanding of discharge instructions and need for immediate followup. all aspects of this case were discussed the attending of record. impression; cellulitis, leg, rash leg take your pain medications as prescribed by your primary care physician doxycyline; 1 tablet twice daily x 10 days follow up with the residential treatment counselor within the next 2 days. follow up with the primary care physician within the next 2 days. return if symptoms worsen,persist or if new symptoms develop. - Lab Interpretations Lab Results: 01/29/17 15:35 01/29/17 15:35 Lab Results 01/29/17 15:35: WBC 5.7, RBC 4.05, Hgb 12.0, Hct 35.0 L, MCV 86.4, MCH 29.6, MCHC 34.3, RDW 13.5, Plt Count 198, MPV 9.2, Gran % 73.5 H, Lymph % (Auto) 20.0 L, [place] % (Auto) 4.4, Eos % (Auto) 1.9, Baso % (Auto) 0.2, Gran # 4.15, Lymph # 1.1 L, [place] # 0.3, Eos # 0.1, Baso # 0.01 01/29/17 15:35: Sodium 137, Potassium 4.0, Chloride 100, Carbon Dioxide 27, Anion Gap 14, BUN 19, Creatinine 0.9, Est GFR ( Amer) > 60, Est GFR (Non- Af Amer) > 60, Random Glucose 255 H, Calcium 9.3, Total Bilirubin 0.3, AST 21, ALT 25, Alkaline Phosphatase 79, NT-Pro-B Natriuret Pep 109, Total Protein 6.8, Albumin 3.9, Globulin 2.9, Albumin/Globulin Ratio 1.3 - RAD Interpretation Radiology Orders: 01/29/17 17:35 DUPLEX LOWER EXTRM VEIN BILAT [US] Stat - Medication Orders Current Medication Orders: Doxycycline Hyclate (Doryx) 100 mg PO STAT STA PRN Reason: Protocol Stop: 01/29/17 18:02 Discontinued Medications Ketorolac Tromethamine (Toradol) 15 mg IM STAT STA Stop: 01/29/17 16:21 Last Admin: 01/29/17 16:40 Dose: 15 mg MAR Pain Assessment Document 01/29/17 16:40 AB (Rec: 01/29/17 16:42 AB [id number]) Pain Reassessment Is this a pain reassessment? Yes Sleep Is patient sleeping during reassessment? No Presence of Pain Presence of Pain Yes Pain Scale Used Pain Scale Used Numeric Location Left, Right or Bilateral Left Upper or Lower Lower Pain Location Body Site Leg Description Description Constant Pain Behavior Irritability Aggravating Factors ADL's Changing Position Alleviating Factors/Management Medication Techniques Alleviating Factors Medication IM Administration Charges Document 01/29/17 16:40 AB (Rec: 01/29/17 16:42 AB [id number]) Injection Site MAR Injection Site Left Deltoid Charges for Administration # of IM Administrations 1 Disposition/Present on Arrival - Present on Arrival Any Indicators Present on Arrival: No History of DVT/PE: No History of Uncontrolled Diabetes: No Urinary Catheter: No History of Decub. Ulcer: No History Surgical Site Infection Following: None - Disposition Have Diagnosis and Disposition been Completed?: Yes Diagnosis: Cellulitis, Rash Disposition: HOME/ ROUTINE Disposition Time: 16:41 Patient Problems: Current Active Problems Problem Status Onset Cellulitis Acute Rash Acute Condition: FAIR Discharge Instructions (ExitCare): Cellulitis (ED) Additional Instructions: take your pain medications as prescribed by your primary care physician doxycyline; 1 tablet twice daily x 10 days follow up with the residential treatment counselor within the next 2 days. follow up with the primary care physician within the next 2 days. return if symptoms worsen,persist or if new symptoms develop. Prescriptions: Doxycycline Hyclate 100 mg PO BID #20 cap Referrals: Karlene Gamez MD [Staff Provider] - Follow up with primary Zana Mancera MD [Primary Care Provider] - Follow up with primary Darion Soni MD [Staff Provider] - Follow up with primary Forms: [employer] ([place]an)
[2017-01-29 16:21] LABS: BASO # 0.01 K/mm3 (0.0-2.0); BASO % 0.2 % (0.0-3.0); EOS # 0.1 (0.0-0.7); EOS % 1.9 % (1.5-5.0); GRAN # 4.15 (1.4-6.5); GRAN % 73.5 % (50.0-68.0); LYMPH # 1.1 (1.2-3.4); MEAN CELL VOLUME 86.4 fl (80.0-105.0); MEAN CORPUSCULAR HEMOGLOBIN 29.6 pg (25.0-35.0); MEAN CORPUSCULAR HGB CONC 34.3 g/dl (31.0-37.0); MEAN PLATELET VOLUME 9.2 fl (7.0-11.0); MONO # 0.3 (0.1-0.6); MONO % 4.4 % (1.0-6.0); RED CELL DISTRIBUTION WIDTH 13.5 % (11.5-14.5); WHITE BLOOD COUNT 5.7 10^3/ul (4.5-11.0)
[2017-01-29 16:28] LABS: ALB/GLOB RATIO 1.3 (1.1-1.8); ALKALINE PHOSPHATASE 79 U/L (38-126); ALT/SGPT 25 U/L (7-56); AST/SGOT 21 U/L (14-36); BILIRUBIN,TOTAL 0.3 mg/dL (0.2-1.3); BLOOD UREA NITROGEN 19 mg/dL (7-21); CALCIUM 9.3 mg/dL (8.4-10.5); CARBON DIOXIDE 27 mmol/L (21-33); CHLORIDE 100 mmol/L (98-107); GFR AFRICAN-AMERICAN > 60; GLUCOSE,RANDOM 255 mg/dL (70-110); SODIUM 137 mmol/L (132-148); TOTAL PROTEIN 6.8 g/dL (5.8-8.3)
[2017-01-29 18:23] VITALS: BP 122/72; PULSE 86; RESP 17; TEMP 98.8; O2SAT 100
--- NOTE | 2017-01-30 18:36 | US ---
HISTORY: Leg pain and swelling. Evaluate for DVT PHYSICIAN(S): Aric Nielsen MD. TECHNIQUE: Duplex sonography and color-flow Doppler with graded compression were used to evaluate the deep venous systems of both lower extremities. The exam is somewhat limited by body habitus and edema. The tibial veins are not well seen. FINDINGS: The visualized deep venous systems of both lower extremities are sonographically normal and compressible. Normal wave forms and augmentation are seen. There is no sonographic evidence for deep venous thrombosis in the visualized segments of both lower extremities. IMPRESSION: No sonographic evidence for deep venous thrombosis in the visualized segments of both lower extremities.
== END 2017-01-29 18:23 | disposition home or self-care (01) ==
LOC: ED 15:02
DX: L03.116 Cellulitis of left lower limb (principal); R21 Rash and other nonspecific skin eruption; I10 Essential (primary) hypertension; E11.9 Type 2 diabetes mellitus without complications; F17.210 Nicotine dependence, cigarettes, uncomplicated
CPT/HCPCS: 80053; 83880; 85025; 93970; 96372; 99282; J1885

== ENCOUNTER 2017-03-04 17:15 | Emergency (ER) | payer MEDICAID, OTHER ==
[2017-03-04 17:16] VITALS: BMI 45.7
[2017-03-04 17:43] VITALS: O2SAT 98
--- NOTE | 2017-03-04 18:09 | ED PDOC ---
Arrival/HPI - General Chief Complaint: Abnormal Skin Integrity Time Seen by Provider: 03/04/17 17:55 Historian: Patient - History of Present Illness Narrative History of Present Illness (Text): 03/04/17 18:44 56yo female with PMHx of Diabetes, hypertension who present with what she thinks is rash on her right sided buttocks. states the area became irritated 2weeks ago but she is not sure what caused the irritation. States she stood up from a seat and started feeling the irritation. She however denies fever, chills , drainage from wound, redness, any other complaint. Past Medical History - Provider Review Nursing Documentation Reviewed: Yes - Past History Past History: Non-Contributing - Infectious Disease Hx of Infectious Diseases: None - Tetanus Immunization Tetanus Immunization: Unknown - Reproductive Menopause: Yes - Past Medical History Past Medical History: Non-Contributing - Cardiac Hx Cardiac Disorders: Yes Hx Hypertension: Yes - Pulmonary Hx Respiratory Disorders: Yes Hx Pneumonia: Yes - Neurological Hx Neurological Disorder: No - HEENT Hx HEENT Disorder: No - Renal Hx Renal Disorder: No - Endocrine/Metabolic Hx Endocrine Disorders: Yes Hx Diabetes Mellitus Type 2: Yes - Hematological/Oncological Hx Blood Disorders: No - Integumentary Hx Dermatological Disorder: No Other/Comment: cellulitis to the lower extremities since 08/23 - Musculoskeletal/Rheumatological Hx Musculoskeletal Disorders: Yes Hx Arthritis: Yes Hx Falls: No - Gastrointestinal Hx Gastrointestinal Disorders: Yes Hx Diverticulitis: Yes Hx Gastroesophageal Reflux: Yes Other/Comment: colitis - Genitourinary/Gynecological Hx Genitourinary Disorders: Yes Hx Incontinence: Yes (stress incontinece) Hx Urinary Tract Infection: Yes - Psychiatric Hx Psychophysiologic Disorder: Yes Hx Anxiety: Yes Hx Bipolar Disorder: Yes Hx Depression: Yes Hx Schizophrenia: Yes Hx Substance Use: No - Past Surgical History Past Surgical History: Non-Contributing - Surgical History Other/Comment: Colonoscopy. Endoscopy - Anesthesia Hx Anesthesia: Yes Hx Anesthesia Reactions: No - Suicidal Assessment Feels Threatened In Home Enviroment: No Family/Social History - Physician Review Nursing Documentation Reviewed: Yes Family/Social History: Unknown Family HX Smoking Status: Heavy Smoker > 10 Cigarettes Daily Hx Alcohol Use: No Hx Substance Use: No Hx Substance Use Treatment: No Allergies/Home Meds Allergies/Adverse Reactions: Allergies amoxicillin [From Augmentin] Allergy (Verified 03/04/17 17:43) NAUSEA clarithromycin [From Biaxin] Allergy (Verified 03/04/17 17:43) RASH clavulanic acid [From Augmentin] Allergy (Verified 03/04/17 17:43) NAUSEA Home Medications: Home Meds Medication Instructions Recorded Confirmed Enalapril Maleate 10 mg PO DAILY 01/09/15 03/04/17 Pantoprazole Sodium [Protonix] 40 mg PO DAILY 08/25/16 03/04/17 [id number] CD [Cardizem CD] 340 mg PO DAILY 08/25/16 03/04/17 Insulin Detemir [Levemir] 0 units SC HS 09/22/16 03/04/17 ALPRAZolam [Xanax] 1 mg PO TID 12/10/16 03/04/17 Review of Systems - Physician Review All systems were reviewed & negative as marked: Yes - Review of Systems Constitutional: Normal Eyes: Normal ENT: Normal Respiratory: Normal Cardiovascular: Normal Gastrointestinal: Normal Genitourinary Female: Normal Musculoskeletal: Normal Skin: Rash Neurological: Normal Endocrine: Normal Hemo/Lymphatic: Normal Psychiatric: Normal Physical Exam Vital Signs Reviewed: Yes Vital Signs Temp Pulse Resp BP Pulse Ox 03/04/17 18:43 98.0 F 86 18 116/71 98 03/04/17 17:41 98.3 F 92 H 16 118/76 98 Temperature: Afebrile Blood Pressure: Normal Pulse: Regular Respiratory Rate: Normal Appearance: Positive for: Well-Appearing, Non-Toxic, Comfortable Pain Distress: None Mental Status: Positive for: Alert and Oriented X 3 - Systems Exam Head: Present: Atraumatic, Normocephalic Pupils: Present: PERRL Extroacular Muscles: Present: EOMI Conjunctiva: Present: Normal Mouth: Present: Moist Mucous Membranes Neck: Present: Normal Range of Motion Respiratory/Chest: Present: Clear to Auscultation, Good Air Exchange. No: Respiratory Distress, Accessory Muscle Use Cardiovascular: Present: Regular Rate and Rhythm, Normal S1, S2. No: Murmurs Abdomen: Present: Normal Bowel Sounds. No: Tenderness, Distention, Peritoneal Signs Back: Present: Normal Inspection Upper Extremity: Present: Normal Inspection. No: Cyanosis, Edema Lower Extremity: Present: Normal Inspection. No: Edema Neurological: Present: GCS=15, CN II-XII Intact, Speech Normal Skin: Present: Warm, Dry, Normal Color, Abrasion (1.0cm abrasion noted at the right gluteal cleft. No erythema. No discharge noted. No sign of infection. small skin tag also noted around the area.). No: Rashes Psychiatric: Present: Alert, Oriented x 3, Normal Insight, Normal Concentration Medical Decision Making ED Course and Treatment: 03/04/17 18:32 Pt in ED for stated history. she was afebrile. Hemodynamically stable. Small abrasion approximately 1.0cm cleaned with betadine in ED, bacitracine applied and dressed Pt is PCN allergic, placed on Doxycycline. - Medication Orders Current Medication Orders: Discontinued Medications Doxycycline Hyclate (Doryx) 100 mg PO STAT STA PRN Reason: Protocol Stop: 03/04/17 18:04 Last Admin: 03/04/17 18:24 Dose: 100 mg Disposition/Present on Arrival - Present on Arrival Any Indicators Present on Arrival: No History of DVT/PE: No History of Uncontrolled Diabetes: No Urinary Catheter: No History of Decub. Ulcer: No History Surgical Site Infection Following: None - Disposition Have Diagnosis and Disposition been Completed?: Yes Diagnosis: Abrasion, Skin tag Disposition: HOME/ ROUTINE Disposition Time: 18:10 Patient Plan: Discharge Condition: STABLE Discharge Instructions (ExitCare): Abrasion (ED) Additional Instructions: Keep wound clean and dry follow up with your doctor Return to ED for any new or worsening symptoms Prescriptions: Bacitracin Ointment [Bacitracin] 30 gm TOP BID #1 tube Doxycycline Hyclate [Doryx] 100 mg PO BID #14 cap Referrals: Zana Mancera MD [Primary Care Provider] - Follow up with primary Forms: [employer] (Hebrew)
[2017-03-04 18:43] VITALS: BP 116/71; PULSE 86; RESP 18; TEMP 98
== END 2017-03-04 18:43 | disposition home or self-care (01) ==
LOC: ED 17:15
DX: L91.8 Other hypertrophic disorders of the skin (principal); S30.810A Abrasion of lower back and pelvis, initial encounter; X58.XXXA Exposure to other specified factors, initial encounter; I10 Essential (primary) hypertension; E11.9 Type 2 diabetes mellitus without complications

== ENCOUNTER 2017-03-22 14:37 | Emergency (ER) | payer OTHER ==
[2017-03-22 14:38] VITALS: BMI 45.7
[2017-03-22 15:30] VITALS: BP 123/73; PULSE 85; RESP 18; TEMP 98.8; O2SAT 100
--- NOTE | 2017-03-22 15:47 | ED PDOC ---
Arrival/HPI - General Chief Complaint: Abnormal Skin Integrity Time Seen by Provider: 03/22/17 14:50 Historian: Patient - History of Present Illness Narrative History of Present Illness (Text): 03/22/17 15:44 56-year-old female presents today with a bilateral lower extremity rash. Patient is requesting antibiotics. Patient states she has a history of recurrent cellulitis in the lower legs. She denies fevers or chills. Denies chest pain or shortness of breath. Patient states she is being followed closely by a it lead and is applying a unknown prescription cream as well as permethrin. Patient states she was told that she has lites which causes allergic reaction in the lower legs. Patient states 4 days ago she noticed slight increase in the erythema on the left lower leg as well as a small area of erythema on the right lower leg. She denies pain. Denies numbness weakness or tingling in the extremities. Denies trauma or injury. No other complaints. Time/Duration: Other (4 days) Past Medical History - Provider Review Nursing Documentation Reviewed: Yes - Travel History Have you recently traveled outside [place] w/in the past 3 mons?: No - Past History Past History: Non-Contributing - Infectious Disease Hx of Infectious Diseases: None - Tetanus Immunization Tetanus Immunization: Unknown - Past Medical History Past Medical History: Non-Contributing - Cardiac Hx Cardiac Disorders: Yes Hx Hypertension: Yes - Pulmonary Hx Respiratory Disorders: Yes Hx Pneumonia: Yes - Neurological Hx Neurological Disorder: No - HEENT Hx HEENT Disorder: No - Renal Hx Renal Disorder: No - Endocrine/Metabolic Hx Endocrine Disorders: Yes Hx Diabetes Mellitus Type 2: Yes - Hematological/Oncological Hx Blood Disorders: No - Integumentary Hx Dermatological Disorder: No Other/Comment: cellulitis to the lower extremities since 08/23 - Musculoskeletal/Rheumatological Hx Musculoskeletal Disorders: Yes Hx Arthritis: Yes Hx Falls: No - Gastrointestinal Hx Gastrointestinal Disorders: Yes Hx Diverticulitis: Yes Hx Gastroesophageal Reflux: Yes Other/Comment: colitis - Genitourinary/Gynecological Hx Genitourinary Disorders: Yes Hx Incontinence: Yes (stress incontinece) Hx Urinary Tract Infection: Yes - Psychiatric Hx Psychophysiologic Disorder: Yes Hx Anxiety: Yes Hx Bipolar Disorder: Yes Hx Depression: Yes Hx Schizophrenia: Yes Hx Substance Use: No - Past Surgical History Past Surgical History: Non-Contributing - Surgical History Other/Comment: Colonoscopy. Endoscopy - Anesthesia Hx Anesthesia: Yes Hx Anesthesia Reactions: No Hx Malignant Hyperthermia: No - Suicidal Assessment Feels Threatened In Home Enviroment: No Family/Social History - Physician Review Nursing Documentation Reviewed: Yes Family/Social History: Unknown Family HX Smoking Status: Heavy Smoker > 10 Cigarettes Daily Hx Alcohol Use: No Hx Substance Use: No Hx Substance Use Treatment: No Allergies/Home Meds Allergies/Adverse Reactions: Allergies amoxicillin [From Augmentin] Allergy (Verified 03/04/17 17:43) NAUSEA clarithromycin [From Biaxin] Allergy (Verified 03/04/17 17:43) RASH clavulanic acid [From Augmentin] Allergy (Verified 03/04/17 17:43) NAUSEA Home Medications: Home Meds Medication Instructions Recorded Confirmed Enalapril Maleate 10 mg PO DAILY 01/09/15 03/22/17 Pantoprazole Sodium [Protonix] 40 mg PO DAILY 08/25/16 03/22/17 [id number] CD [Cardizem CD] 340 mg PO DAILY 08/25/16 03/22/17 Insulin Detemir [Levemir] 0 units SC HS 09/22/16 03/22/17 ALPRAZolam [Xanax] 1 mg PO TID 12/10/16 03/22/17 Review of Systems - Review of Systems Constitutional: absent: Fatigue, Fevers Respiratory: absent: SOB, Cough Cardiovascular: absent: Chest Pain, Palpitations Gastrointestinal: absent: Abdominal Pain, Nausea, Vomiting Musculoskeletal: absent: Arthralgias Skin: Rash, Pruritis Neurological: absent: Headache, Dizziness Psychiatric: absent: Anxiety, Depression Physical Exam Vital Signs Reviewed: Yes Vital Signs Temp Pulse Resp BP Pulse Ox 03/22/17 14:38 98.8 F 85 18 123/73 100 Temperature: Afebrile Blood Pressure: Normal Pulse: Regular Respiratory Rate: Normal Appearance: Positive for: Well-Appearing, Non-Toxic, Comfortable Pain Distress: None Mental Status: Positive for: Alert and Oriented X 3 - Systems Exam Head: Present: Atraumatic Mouth: Present: Moist Mucous Membranes Neck: Present: Normal Range of Motion Respiratory/Chest: Present: Clear to Auscultation, Good Air Exchange. No: Respiratory Distress, Accessory Muscle Use Cardiovascular: Present: Regular Rate and Rhythm, Normal S1, S2. No: Murmurs Lower Extremity: Present: Edema (minimal edema noted bilaterally. non pitting), NORMAL PULSES, Normal ROM, Erythema (left leg; there is erythema noted to the left lower leg, blanching. no warmth; right leg; there is a small 5x4 area of erythema noted to the lateral aspect of the lower leg; non tender; ), Neurovascularly Intact, Capillary Refill < 2 s. No: CALF TENDERNESS, Tenderness , Swelling, Deformity, Temperature Abnormalties Neurological: Present: GCS=15, Speech Normal Skin: Present: Warm, Dry Psychiatric: Present: Alert, Oriented x 3 Medical Decision Making ED Course and Treatment: 03/22/17 15:49 56yr old female with hx of b/l lower leg cellulitis presents with 4 day history of leg erythema. Denies LEG PAIN. vitals stable. no distress. afebrile. will start patient on doxycycline. advised f/u with vascular surgeon. advised f/ u with PMD. advised f/u with [facility] lead. advised immediate return if symptoms worsen,persist or if new symptoms develop. Patient verbalizes understanding of discharge instructions and need for immediate followup. all aspects of this case were discussed the attending of record. Impression: Cellulitis Doxycycline twice daily 7 days Follow-up primary care physician within the next 2 days Follow up with the vascular specialist within the next 2 days Follow-up with a it lead Return immediately if symptoms worsen persist or if new symptoms develop: High fevers, increasing redness, increasing swelling, if you develop pain or if any other concerning symptoms develop Disposition/Present on Arrival - Present on Arrival Any Indicators Present on Arrival: No History of DVT/PE: No History of Uncontrolled Diabetes: No Urinary Catheter: No History of Decub. Ulcer: No History Surgical Site Infection Following: None - Disposition Have Diagnosis and Disposition been Completed?: Yes Diagnosis: Cellulitis Disposition: HOME/ ROUTINE Disposition Time: 15:57 Patient Plan: Discharge Patient Problems: Current Active Problems Problem Status Onset Cellulitis Acute Condition: GOOD Discharge Instructions (ExitCare): Cellulitis (ED) Additional Instructions: Doxycycline twice daily 7 days Follow-up primary care physician within the next 2 days Follow up with the vascular specialist within the next 2 days Follow-up with a it lead Return immediately if symptoms worsen persist or if new symptoms develop: High fevers, increasing redness, increasing swelling, if you develop pain or if any other concerning symptoms develop Prescriptions: Doxycycline Hyclate 100 mg PO BID #14 capsule Referrals: Zana Mancera MD [Primary Care Provider] - Follow up with primary Reg Alonzo MD [Staff Provider] - Follow up with primary Forms: [employer] ([employer])
== END 2017-03-22 16:30 | disposition home or self-care (01) ==
LOC: ED 14:37
DX: L03.90 Cellulitis, unspecified (principal); I10 Essential (primary) hypertension; E11.9 Type 2 diabetes mellitus without complications; Z79.4 Long term (current) use of insulin; F17.210 Nicotine dependence, cigarettes, uncomplicated; Z88.0 Allergy status to penicillin

== ENCOUNTER 2017-04-05 13:49 | Emergency (ER) | payer OTHER ==
[2017-04-05 14:13] VITALS: BMI 42.0
[2017-04-05 14:18] VITALS: BP 123/73; PULSE 98; RESP 18; TEMP 99; O2SAT 95
--- NOTE | 2017-04-05 14:34 | ED PDOC ---
Arrival/HPI - General Chief Complaint: Abnormal Skin Integrity Time Seen by Provider: 04/05/17 14:23 Historian: Patient - History of Present Illness Time/Duration: Other (6 months) Symptom Onset: Gradual Symptom Course: Intermittent Severity Level: Mild Activities at Onset: Rest Associated Symptoms (Text): 04/05/17 14:31 Patient complains of approximately a 6 month history of intermittent redness of bilateral lower extremities. She was seen in the emergency department approximately 2 weeks ago for similar complaints. She was treated with doxycycline. I actually had the PA who saw her last time look at her again today and she reports that the patient is actually much better. Patient believes that she is about the same. Patient is extremely anxious and nervous that this may be her new skin color. She is concerned that she may have cellulitis again. I discussed with her that she needs to follow-up with her PMD and infectious disease specialist. She also has an appointment with the practice physician next week. Past Medical History - Past History Past History: Non-Contributing - Infectious Disease Hx of Infectious Diseases: None - Tetanus Immunization Tetanus Immunization: Unknown - Past Medical History Past Medical History: Non-Contributing - Cardiac Hx Cardiac Disorders: Yes Hx Hypertension: Yes - Pulmonary Hx Respiratory Disorders: Yes Hx Pneumonia: Yes - Neurological Hx Neurological Disorder: No - HEENT Hx HEENT Disorder: No - Renal Hx Renal Disorder: No - Endocrine/Metabolic Hx Endocrine Disorders: Yes Hx Diabetes Mellitus Type 2: Yes - Hematological/Oncological Hx Blood Disorders: No - Integumentary Hx Dermatological Disorder: No Other/Comment: cellulitis to the lower extremities since 08/23 - Musculoskeletal/Rheumatological Hx Musculoskeletal Disorders: Yes Hx Arthritis: Yes Hx Falls: No - Gastrointestinal Hx Gastrointestinal Disorders: Yes Hx Diverticulitis: Yes Hx Gastroesophageal Reflux: Yes Other/Comment: colitis - Genitourinary/Gynecological Hx Genitourinary Disorders: Yes Hx Incontinence: Yes (stress incontinece) Hx Urinary Tract Infection: Yes - Psychiatric Hx Psychophysiologic Disorder: Yes Hx Anxiety: Yes Hx Bipolar Disorder: Yes Hx Depression: Yes Hx Schizophrenia: Yes Hx Substance Use: No - Past Surgical History Past Surgical History: Non-Contributing - Surgical History Hx Cardiac Catheterization: Yes Other/Comment: Colonoscopy. Endoscopy - Anesthesia Hx Anesthesia: Yes Hx Anesthesia Reactions: No Hx Malignant Hyperthermia: No - Suicidal Assessment Feels Threatened In Home Enviroment: No Family/Social History - Physician Review Nursing Documentation Reviewed: Yes Family/Social History: Unknown Family HX Smoking Status: Heavy Smoker > 10 Cigarettes Daily Hx Alcohol Use: No Hx Substance Use: No Hx Substance Use Treatment: No Allergies/Home Meds Allergies/Adverse Reactions: Allergies amoxicillin [From Augmentin] Allergy (Verified 03/04/17 17:43) NAUSEA clarithromycin [From Biaxin] Allergy (Verified 03/04/17 17:43) RASH clavulanic acid [From Augmentin] Allergy (Verified 03/04/17 17:43) NAUSEA Home Medications: Home Meds Medication Instructions Recorded Confirmed Enalapril Maleate 10 mg PO DAILY 01/09/15 04/05/17 Pantoprazole Sodium [Protonix] 40 mg PO DAILY 08/25/16 04/05/17 [id number] CD [Cardizem CD] 340 mg PO DAILY 08/25/16 04/05/17 Insulin Detemir [Levemir] 0 units SC HS 09/22/16 04/05/17 ALPRAZolam [Xanax] 1 mg PO TID 12/10/16 04/05/17 Review of Systems - Physician Review All systems were reviewed & negative as marked: Yes - Review of Systems Constitutional: absent: Fevers Respiratory: Normal Cardiovascular: Normal Gastrointestinal: Normal Physical Exam Vital Signs Temp Pulse Resp BP Pulse Ox 04/05/17 14:18 99 F 98 H 18 123/73 95 Temperature: Afebrile Blood Pressure: Normal Pulse: Regular Respiratory Rate: Normal Appearance: Positive for: Well-Appearing, Non-Toxic, Comfortable, Other (Anxious ) Pain Distress: None Mental Status: Positive for: Alert and Oriented X 3 - Systems Exam Respiratory/Chest: Present: Clear to Auscultation, Good Air Exchange. No: Respiratory Distress, Accessory Muscle Use Cardiovascular: Present: Regular Rate and Rhythm, Normal S1, S2. No: Murmurs Abdomen: Present: Normal Bowel Sounds. No: Tenderness, Distention, Peritoneal Signs Upper Extremity: Present: Normal Inspection. No: Cyanosis, Edema Lower Extremity: Present: Other (Left lower extremity has some mild blanching erythema with no edema or swelling. Nontender. This may represent a mild cellulitis.) Medical Decision Making ED Course and Treatment: 04/05/17 14:34 Patient is requesting a prescription for Percocet. I told her that she would need to get her chronic pain medication from her PMD. She will be given a few Ultram. Prescription for Augmentin and follow-up with PMD. Disposition/Present on Arrival - Present on Arrival Any Indicators Present on Arrival: No History of DVT/PE: No History of Uncontrolled Diabetes: No Urinary Catheter: No History of Decub. Ulcer: No History Surgical Site Infection Following: None - Disposition Have Diagnosis and Disposition been Completed?: Yes Diagnosis: Cellulitis Disposition: HOME/ ROUTINE Disposition Time: 14:35 Patient Plan: Discharge Condition: GOOD Discharge Instructions (ExitCare): Cellulitis (ED) Additional Instructions: Follow-up with PMD, practice physician and infectious disease specialist Prescriptions: Sulfamethoxazole/Trimethoprim [Bactrim DS 800 mg-160 mg] 1 tab PO BID #14 tab Tramadol HCl [Ultram] 50 mg PO Q6 PRN #7 tab PRN Reason: Pain
== END 2017-04-05 14:56 | disposition home or self-care (01) ==
LOC: ED 13:49
DX: L03.116 Cellulitis of left lower limb (principal); L03.115 Cellulitis of right lower limb; I10 Essential (primary) hypertension; E11.9 Type 2 diabetes mellitus without complications; Z79.4 Long term (current) use of insulin; F17.210 Nicotine dependence, cigarettes, uncomplicated

== ENCOUNTER 2017-04-27 01:28 | Inpatient (IN) | payer OTHER ==
[2017-04-27 01:29] VITALS: BMI 42.0
[2017-04-27] MEDS ORDERED: Sodium Chloride 0.9% 1,000 ML IV STA ×2 (01:47→08:59)
[2017-04-27] MEDS ORDERED: Morphine 2 mg/ml ISec IVP STA ×2 (01:54→03:08)
--- NOTE | 2017-04-27 02:10 | ED PDOC ---
Arrival/HPI - General Chief Complaint: GI Problem Time Seen by Provider: 04/27/17 01:44 Historian: Patient - History of Present Illness Narrative History of Present Illness (Text): 04/27/17 02:09 A 56 year old female, whose past medical history includes diverticulitis, presents to the emergency department complaining of left sided abdominal pain, nausea and bloody diarrhea that began yesterday. Patient denies any fever, vomiting, headache, dizziness or any other complaints at this time. Symptom Onset: Sudden Symptom Course: Unchanged Activities at Onset: Rest Context: Home Past Medical History - Provider Review Nursing Documentation Reviewed: Yes - Past History Past History: Non-Contributing - Infectious Disease Hx of Infectious Diseases: None - Tetanus Immunization Tetanus Immunization: Unknown - Past Medical History Past Medical History: Non-Contributing - Cardiac Hx Cardiac Disorders: Yes Hx Hypertension: Yes - Pulmonary Hx Respiratory Disorders: Yes Hx Pneumonia: Yes - Neurological Hx Neurological Disorder: No - HEENT Hx HEENT Disorder: No - Renal Hx Renal Disorder: No - Endocrine/Metabolic Hx Endocrine Disorders: Yes Hx Diabetes Mellitus Type 2: Yes - Hematological/Oncological Hx Blood Disorders: No - Integumentary Hx Dermatological Disorder: No Other/Comment: cellulitis to the lower extremities since 08/23 - Musculoskeletal/Rheumatological Hx Musculoskeletal Disorders: Yes Hx Arthritis: Yes Hx Falls: No - Gastrointestinal Hx Gastrointestinal Disorders: Yes Hx Diverticulitis: Yes Hx Gastroesophageal Reflux: Yes Other/Comment: colitis - Genitourinary/Gynecological Hx Genitourinary Disorders: Yes Hx Incontinence: Yes (stress incontinece) Hx Urinary Tract Infection: Yes - Psychiatric Hx Psychophysiologic Disorder: Yes Hx Anxiety: Yes Hx Bipolar Disorder: Yes Hx Depression: Yes Hx Schizophrenia: Yes Hx Substance Use: No - Past Surgical History Past Surgical History: Non-Contributing - Surgical History Hx Cardiac Catheterization: Yes Other/Comment: Colonoscopy. Endoscopy - Anesthesia Hx Anesthesia: Yes Hx Anesthesia Reactions: No Hx Malignant Hyperthermia: No - Suicidal Assessment Feels Threatened In Home Enviroment: No Family/Social History - Physician Review Nursing Documentation Reviewed: Yes Family/Social History: No Known Family HX Smoking Status: Heavy Smoker > 10 Cigarettes Daily Hx Alcohol Use: No Hx Substance Use: No Hx Substance Use Treatment: No Allergies/Home Meds Allergies/Adverse Reactions: Allergies amoxicillin [From Augmentin] Allergy (Verified 04/29/17 17:37) NAUSEA clarithromycin [From Biaxin] Allergy (Verified 04/29/17 17:37) RASH clavulanic acid [From Augmentin] Allergy (Verified 04/29/17 17:37) NAUSEA Home Medications: Home Meds Medication Instructions Recorded Confirmed Enalapril Maleate 10 mg PO DAILY 01/09/15 04/29/17 Pantoprazole Sodium [Protonix] 40 mg PO DAILY 08/25/16 04/29/17 [id number] CD [Cardizem CD] 340 mg PO DAILY 08/25/16 04/29/17 Insulin Detemir [Levemir] 0 units SC HS 09/22/16 04/29/17 ALPRAZolam [Xanax] 1 mg PO TID 12/10/16 04/29/17 Review of Systems - Physician Review All systems were reviewed & negative as marked: Yes - Review of Systems Constitutional: absent: Fevers Gastrointestinal: Abdominal Pain (left sided), Diarrhea (bloody), Nausea. absent: Vomiting Neurological: absent: Headache, Dizziness Physical Exam Vital Signs Reviewed: Yes Vital Signs Temp Pulse Resp BP Pulse Ox 04/27/17 04:37 97 H 16 137/74 100 04/27/17 01:38 98.1 F 103 H 18 147/78 99 Temperature: Afebrile Blood Pressure: Normal Pulse: Tachycardic Respiratory Rate: Normal Appearance: Positive for: Well-Appearing, Non-Toxic, Comfortable Pain Distress: None Mental Status: Positive for: Alert and Oriented X 3 - Systems Exam Head: Present: Atraumatic, Normocephalic Pupils: Present: PERRL Extroacular Muscles: Present: EOMI Conjunctiva: Present: Normal Mouth: Present: Moist Mucous Membranes Neck: Present: Normal Range of Motion Respiratory/Chest: Present: Clear to Auscultation, Good Air Exchange. No: Respiratory Distress, Accessory Muscle Use Cardiovascular: Present: Tachycardic. No: Murmurs Abdomen: Present: Tenderness (LLQ), Normal Bowel Sounds. No: Distention, Peritoneal Signs Back: Present: Normal Inspection Upper Extremity: Present: Normal Inspection. No: Cyanosis, Edema Lower Extremity: Present: Normal Inspection. No: Edema Neurological: Present: GCS=15, CN II-XII Intact, Speech Normal Skin: Present: Warm, Dry, Normal Color. No: Rashes Psychiatric: Present: Alert, Oriented x 3, Normal Insight, Normal Concentration Medical Decision Making ED Course and Treatment: 04/27/17 02:07 Impression: A 56 year old female with left sided abdominal pain, nausea and bloody diarrhea. Plan: -- EKG -- labs -- CT abd/pelvis -- Urinalysis -- IV fluids, Zofran -- Reassess and disposition Prior Visits: Notes and results from previous visits were reviewed. Patient was last seen in the emergency department on 04/05/17 for evaluation of redness of bilateral lower extremities. Progress Notes: 04/27/17 02:49 EKG: Ordered, reviewed, and independently interpreted the EKG. Rate : 90 BPM Rhythm : NSR Interpretation : Nonspecific ST segment changes CT Abdomen and Pelvis Without Intravenous Contrast FINDINGS: Limitations: Lack of intravenous contrast. Lower thorax: Minimal atelectasis/scarring. Valvular calcifications. Small hiatal hernia. ABDOMEN: Liver: Unremarkable. Gallbladder and bile ducts: Gallbladder distention. No calcified gallstones. No significant ductal dilation. Pancreas: Unremarkable. No ductal dilation. Spleen: No splenomegaly. Adrenals: No mass. Kidneys and ureters: No renal calculi. No hydronephrosis. Stomach and bowel: Few scattered diverticula within colon. Minimal stranding about distal transverse, descending colon. No obstruction. Appendix: No findings to suggest acute appendicitis. PELVIS: Bladder: Unremarkable. No stones. Reproductive: Unremarkable as visualized. ABDOMEN and PELVIS: Intraperitoneal space: No significant fluid collection. No free air. Bones/joints: Mild degenerative changes of spine. No acute fracture. Soft tissues: Unremarkable. Vasculature: Mild atherosclerotic disease. No aneurysm. Lymph nodes: No pathologically enlarged lymph nodes. IMPRESSION: 1. Probable mild colitis, nonspecific. Consider inflammatory, infectious, or ischemic etiologies. 2. Gallbladder distention. Consider ultrasound. 3. Incidental/non-acute findings are described above. Dictated and Authenticated by: Anders Oshea MD 04/27/2017 4:33 AM Eastern Time ([place] & [place]) 04/27/17 05:43 Chest xray: No acute findings, as read by me. - Lab Interpretations Microbiology Results: Microbiology Results 04/27/17 05:00 Blood-Venous Blood Culture - Preliminary NO GROWTH AFTER 4 DAYS 04/27/17 04:30 Blood-Venous Blood Culture - Preliminary NO GROWTH AFTER 4 DAYS 04/27/17 11:30 Stool C. difficile Antigen & Toxin A,B (M - Final Lab Results: 04/28/17 06:00 04/28/17 06:00 Lab Results 04/28/17 07:20: POC Glucose (mg/dL) 202 H 04/28/17 06:00: Sodium 131 L, Potassium 4.5, Chloride 98, Carbon Dioxide 26, Anion Gap 12, BUN 19, Creatinine 1.0, Est GFR ( Amer) > 60, Est GFR (Non- Af Amer) 57, Random Glucose 224 H, Calcium 8.6, Total Bilirubin 0.4, AST 15, ALT 21, Alkaline Phosphatase 63, Total Protein 5.8, Albumin 3.0, Globulin 2.8, Albumin/Globulin Ratio 1.1 04/28/17 06:00: WBC 11.6 H, RBC 4.18, Hgb 12.3 D, Hct 37.3, MCV 89.2, MCH 29.4 , MCHC 33.0, RDW 13.7, Plt Count 194, MPV 9.5, Gran % 77.3 H, Lymph % (Auto) 11.1 L, [place] % (Auto) 10.6 H, Eos % (Auto) 0.9 L, Baso % (Auto) 0.1, Gran # 9.00 H, Lymph # 1.3, [place] # 1.2 H, Eos # 0.1, Baso # 0.01 04/27/17 22:07: POC Glucose (mg/dL) 263 H 04/27/17 17:24: POC Glucose (mg/dL) 280 H 04/27/17 16:21: Stool Occult Blood Positive H 04/27/17 11:43: POC Glucose (mg/dL) 270 H 04/27/17 07:09: POC Glucose (mg/dL) 283 H 04/27/17 02:00: Sodium 138, Potassium 5.0, Chloride 99, Carbon Dioxide 23, Anion Gap 21 H, BUN 20, Creatinine 1.1, Est GFR ( Amer) > 60, Est GFR ( Non-Af Amer) 51, Random Glucose 359 H* D, Calcium 9.7, Total Bilirubin 0.7, AST 28, ALT 24, Alkaline Phosphatase 110, Lactate Dehydrogenase 516, Total Creatine Kinase 67, Troponin I < 0.01, Total Protein 7.5, Albumin 4.3, Globulin 3.2, Albumin/Globulin Ratio 1.4, Amylase 130 H, Lipase 29 04/27/17 02:00: PT 11.3, INR 1.04, APTT 29.4 04/27/17 02:00: WBC 13.8 H D, RBC 5.27, Hgb 16.0 D, Hct 46.9, MCV 89.0, MCH 30.4, MCHC 34.1, RDW 13.3, Plt Count 223, MPV 9.6, Gran % 92.5 H, Lymph % (Auto ) 3.4 L, [place] % (Auto) 3.9, Eos % (Auto) 0.1 L, Baso % (Auto) 0.1, Gran # 12.79 H, Lymph # 0.5 L, [place] # 0.5, Eos # 0.0, Baso # 0.01, Neutrophils % (Manual) 79 H, Band Neutrophils % 9 H, Lymphocytes % (Manual) 8 L, Monocytes % (Manual) 4, Platelet Evaluation Normal I have reviewed the lab results: Yes - RAD Interpretation Radiology Orders: 04/27/17 01:54 ABD & PELVIS W/O PO OR IV CONT [CT] Stat 04/27/17 04:48 CHEST PORTABLE [RAD] Stat - EKG Interpretation Interpreted by ED Physician: Yes Type: 12 lead EKG - Medication Orders Current Medication Orders: Discontinued Medications Alprazolam (Xanax) 1 mg PO TID PRN; Protocol PRN Reason: Anxiety Last Admin: 04/27/17 23:44 Dose: 1 mg Behavioural Document 04/27/17 23:44 RR (Rec: 04/27/17 23:48 RR [id number]) Maintenance Maintenance Dose No Nonmedicinal Nonmedicinal Interventions Redirect Therapeutic Communication Behavior Behavior for Medication: Anxiety Insomnia Re-Assess: Reassess Psych Meds Document 04/28/17 00:44 RR (Rec: 04/28/17 03:55 RR [id number]) Reassess Psych Med Effective Amitriptyline HCl (Elavil) 100 mg PO HS HOA Last Admin: 04/28/17 21:33 Dose: 100 mg Diltiazem HCl (Cardizem Cd) 360 mg PO DAILY HOA Last Admin: 04/29/17 10:51 Dose: 360 mg MAR Pulse and Blood Pressure Document 04/29/17 10:51 [facility] (Rec: 04/29/17 10:52 [facility] [id number]) Pulse Pulse Rate (60-90) 80 Blood Pressure Blood Pressure (100/60-150/90) 118/62 Divalproex Sodium (Depakote Er(Once Daily)) 1,000 mg PO HS HOA Last Admin: 04/28/17 21:32 Dose: 1,000 mg Behavioural Document 04/28/17 21:32 RR (Rec: 04/28/17 21:32 RR [id number]) Maintenance Maintenance Dose Yes Re-Assess: Reassess Psych Meds Document 04/28/17 22:32 RR (Rec: 04/29/17 01:37 RR [id number]) Reassess Psych Med Effective Furosemide (Lasix) 40 mg PO DAILY HOA Last Admin: 04/29/17 10:53 Dose: 40 mg MAR Blood Pressure Document 04/29/17 10:53 [facility] (Rec: 04/29/17 10:53 [id number] Blood Pressure Blood Pressure (100/60-150/90) 118/62 Hydromorphone HCl (Dilaudid) 2 mg IVP Q4H PRN PRN Reason: Pain, moderate (4-7) Last Admin: 04/29/17 06:56 Dose: 2 mg MAR Pain Assessment Document 04/29/17 06:56 RR (Rec: 04/29/17 06:56 RR [id number]) Pain Reassessment Is this a pain reassessment? No Sleep Is patient sleeping during reassessment? No Presence of Pain Presence of Pain Yes Pain Scale Used Pain Scale Used Numeric Location Left, Right or Bilateral Left Upper or Lower Lower Pain Location Body Site Abdomen Description Description Constant Intensity of Pain at present 7 Pain Behavior Moaning Guarding Facial Grimacing Alleviating Factors/Management Medication Techniques Alleviating Factors Medication IVP Administration Document 04/29/17 06:56 RR (Rec: 04/29/17 06:56 RR [id number]) Charges for Administration # of IVP Administrations 1 Sodium Chloride (Sodium Chloride 0.9%) 1,000 mls @ 100 mls/hr IV .Q10H STA Stop: 04/27/17 11:46 Last Admin: 04/27/17 02:15 Dose: 100 mls/hr eMAR Start Stop Document 04/27/17 02:15 CNR (Rec: 04/27/17 02:15 CNR [id number]) Intravenous Solution Start Date 04/27/17 Start Time 02:15 Ciprofloxacin (Cipro 400mg/200ml Dsw) 400 mg in 200 mls @ 133.3 mls/hr IVPB STAT STA PRN Reason: Protocol Stop: 04/27/17 06:17 Last Admin: 04/27/17 07:01 Dose: 133.3 mls/hr eMAR Start Stop Document 04/27/17 07:01 SRE (Rec: 04/27/17 07:02 SRE [id number]) Intravenous Solution Start Date 04/27/17 Start Time 07:02 Metronidazole (Flagyl) 500 mg in 100 mls @ 100 mls/hr IVPB STAT STA PRN Reason: Protocol Stop: 04/27/17 05:43 Last Admin: 04/27/17 05:10 Dose: 100 mls/hr eMAR Start Stop Document 04/27/17 05:10 CNR (Rec: 04/27/17 05:10 CNR [id number]) Intravenous Solution Start Date 04/27/17 Start Time 05:10 Ciprofloxacin (Cipro 400mg/200ml Dsw) 400 mg in 200 mls @ 133.3 mls/hr IVPB Q12 HOA PRN Reason: Protocol Stop: 04/27/17 20:31 Last Admin: 04/27/17 21:42 Dose: 133.3 mls/hr eMAR Start Stop Document 04/27/17 21:42 [place] (Rec: 04/27/17 21:42 [place] [id number]) Intravenous Solution Start Date 04/27/17 Start Time 21:42 End Date 04/27/17 End time 23:13 Total Infusion Time 91 Metronidazole (Flagyl) 500 mg in 100 mls @ 100 mls/hr IVPB Q8 HOA PRN Reason: Protocol Last Admin: 04/29/17 05:38 Dose: 100 mls/hr eMAR Start Stop Document 04/29/17 05:38 RR (Rec: 04/29/17 05:38 RR [id number]) Intravenous Solution Start Date 04/29/17 Start Time 05:38 End Date 04/29/17 End time 06:38 Total Infusion Time 60 Sodium Chloride (Sodium Chloride 0.9%) 1,000 mls @ 60 mls/hr IV .[id number] STA Stop: 04/27/17 18:26 Last Admin: 04/27/17 11:52 Dose: 60 mls/hr eMAR Start Stop Document 04/27/17 11:52 RV (Rec: 04/27/17 11:52 RV [id number]) Intravenous Solution Start Date 04/27/17 Start Time 09:30 Ceftriaxone Sodium (Rocephin 2 Gm Ivpb) 2 gm in 100 mls @ 100 mls/hr IVPB DAILY HOA PRN Reason: Protocol Last Admin: 04/28/17 12:10 Dose: 100 mls/hr eMAR Start Stop Document 04/28/17 12:10 [facility] (Rec: 04/28/17 12:10 [facility] [id number]) Intravenous Solution Start Date 04/28/17 Start Time 12:10 End Date 04/28/17 End time 13:10 Total Infusion Time 60 Insulin Detemir (Levemir) 12 unit SC HS [facility] Last Admin: 04/28/17 21:36 Dose: 12 unit Subcutaneous Administrations Document 04/28/17 21:36 RR (Rec: 04/28/17 21:36 RR [id number]) Injection Site MAR Injection Site Right Arm Charges for Administration # of Subcutaneous Administrations 1 Insulin Human Regular (Humulin R High) 0 units SC ACHS HOA PRN Reason: Protocol Last Admin: 04/28/17 14:45 Dose: 7 units MAR Blood Glucose Document 04/28/17 14:45 [facility] (Rec: 04/28/17 14:45 [facility] [id number]) Blood Glucose Finger Stick Blood Glucose (70-120) 283 Subcutaneous Administrations Document 04/28/17 14:45 [facility] (Rec: 04/28/17 14:45 [facility] [id number]) Injection Site MAR Injection Site Right Arm Charges for Administration # of Subcutaneous Administrations 7 Insulin Human Regular (Humulin R Low) 0 units SC ACHS HOA PRN Reason: Protocol Last Admin: 04/29/17 07:51 Dose: Not Given Non-Admin Reason: Blood Sugar Parameter MAR Blood Glucose Document 04/29/17 07:51 [facility] (Rec: 04/29/17 07:51 [id number]) Blood Glucose Finger Stick Blood Glucose (70-120) 183 Lisinopril (Zestril) 10 mg PO DAILY [facility] Last Admin: 04/29/17 10:52 Dose: 10 mg MAR Pulse and Blood Pressure Document 04/29/17 10:52 [facility] (Rec: 04/29/17 10:53 [facility] [place] [id number]) Pulse Pulse Rate (60-90) 80 Blood Pressure Blood Pressure (100/60-150/90) 118/62 Morphine Sulfate (Morphine) 2 mg IVP STAT STA Stop: 04/27/17 01:55 Last Admin: 04/27/17 02:15 Dose: 2 mg MAR Pain Assessment Document 04/27/17 02:15 CNR (Rec: 04/27/17 02:15 CNR [id number]) Pain Reassessment Is this a pain reassessment? Yes IVP Administration Document 04/27/17 02:15 CNR (Rec: 04/27/17 02:15 CNR [id number]) Charges for Administration # of IVP Administrations 1 Re-Assess: [facility] Pain Assessment Document 04/27/17 03:15 RV (Rec: 04/27/17 11:53 RV [place] [id number]) Pain Reassessment Is this a pain reassessment? Yes Sleep Is patient sleeping during reassessment? No Presence of Pain Presence of Pain Yes Pain Scale Used Pain Scale Used Numeric Location Left, Right or Bilateral Bilateral Pain Location Body Site Abdomen Description Description Constant Intensity of Pain at present 8 Morphine Sulfate (Morphine) 2 mg IVP STAT STA Stop: 04/27/17 03:09 Last Admin: 04/27/17 03:18 Dose: 2 mg MAR Pain Assessment Document 04/27/17 03:18 CNR (Rec: 04/27/17 03:18 CNR [id number]) Pain Reassessment Is this a pain reassessment? Yes IVP Administration Document 04/27/17 03:18 CNR (Rec: 04/27/17 03:18 CNR [id number]) Charges for Administration # of IVP Administrations 1 Re-Assess: [facility] Pain Assessment Document 04/27/17 04:18 RV (Rec: 04/27/17 11:53 RV [place] [id number]) Pain Reassessment Is this a pain reassessment? Yes Sleep Is patient sleeping during reassessment? No Presence of Pain Presence of Pain Yes Pain Scale Used Pain Scale Used Numeric Location Left, Right or Bilateral Bilateral Pain Location Body Site Abdomen Description Description Constant Intensity of Pain at present 8 Morphine Sulfate (Morphine) 2 mg IVP Q4H PRN PRN Reason: Pain, severe (8-10) Last Admin: 04/27/17 08:14 Dose: 2 mg MAR Pain Assessment Document 04/27/17 08:14 RV (Rec: 04/27/17 08:14 [place] [id number]) Pain Reassessment Is this a pain reassessment? No Sleep Is patient sleeping during reassessment? No Presence of Pain Presence of Pain Yes Location Left, Right or Bilateral Bilateral Pain Location Body Site Abdomen Description Description Burning Intensity of Pain at present 9 Pain Behavior Moaning Irritability Aggravating Factors ADL's Changing Position Sitting Alleviating Factors Medication IVP Administration Document 04/27/17 08:14 RV (Rec: 04/27/17 08:14 [place] [id number]) Charges for Administration # of IVP Administrations 1 Re-Assess: [facility] Pain Assessment Document 04/27/17 09:14 RV (Rec: 04/27/17 11:54 RV [place] [id number]) Pain Reassessment Is this a pain reassessment? Yes Sleep Is patient sleeping during reassessment? No Presence of Pain Presence of Pain Yes Pain Scale Used Pain Scale Used Numeric Location Left, Right or Bilateral Bilateral Pain Location Body Site Abdomen Description Description Constant Intensity of Pain at present 8 Ondansetron HCl (Zofran Inj) 4 mg IVP STAT STA Stop: 04/27/17 01:48 Last Admin: 04/27/17 02:15 Dose: 4 mg IVP Administration Document 04/27/17 02:15 CNR (Rec: 04/27/17 02:15 CNR [id number]) Charges for Administration # of IVP Administrations 1 Pantoprazole Sodium (Protonix Ec Tab) 40 mg PO 0600 HOA Last Admin: 04/29/17 05:39 Dose: 40 mg Tramadol HCl (Ultram) 50 mg PO Q6 PRN PRN Reason: Pain, moderate (4-7) Ziprasidone (Geodon Cap) 80 mg PO HS HOA PRN Reason: Protocol Last Admin: 04/28/17 21:33 Dose: 80 mg Behavioural Document 04/28/17 21:33 RR (Rec: 04/28/17 21:33 RR [id number]) Maintenance Maintenance Dose Yes Re-Assess: Reassess Psych Meds Document 04/28/17 22:33 RR (Rec: 04/29/17 01:37 RR [id number]) Reassess Psych Med Effective - Scribe Statement The provider has reviewed the documentation as recorded by the Arnoldo Hancock Provider Scribe Attestation: All medical record entries made by the Scribe were at my direction and personally dictated by me. I have reviewed the chart and agree that the record accurately reflects my personal performance of the history, physical exam, medical decision making, and the department course for this patient. I have also personally directed, reviewed, and agree with the discharge instructions and disposition. Disposition/Present on Arrival - Present on Arrival Any Indicators Present on Arrival: No History of DVT/PE: No History of Uncontrolled Diabetes: No Urinary Catheter: No History of Decub. Ulcer: No History Surgical Site Infection Following: None - Disposition Have Diagnosis and Disposition been Completed?: Yes Diagnosis: Colitis Disposition: HOSPITALIZED Disposition Time: 04:45 Patient Problems: Current Active Problems Problem Status Onset Abdominal pain Acute GI bleed Acute Condition: FAIR
[2017-04-27 02:42] LABS: BASO # 0.01 K/mm3 (0.0-2.0); BASO % 0.1 % (0.0-3.0); EOS % 0.1 % (1.5-5.0); GRAN # 12.79 (1.4-6.5); GRAN % 92.5 % (50.0-68.0); HEMATOCRIT 46.9 % (36.0-48.0); LYMPH # 0.5 (1.2-3.4); LYMPH % 3.4 % (22.0-35.0); MEAN CORPUSCULAR HEMOGLOBIN 30.4 pg (25.0-35.0); MEAN CORPUSCULAR HGB CONC 34.1 g/dl (31.0-37.0); MEAN PLATELET VOLUME 9.6 fl (7.0-11.0); MONO # 0.5 (0.1-0.6); MONO % 3.9 % (1.0-6.0); PLATELET COUNT 223 10^3/uL (120.0-450.0); RED CELL DISTRIBUTION WIDTH 13.3 % (11.5-14.5); WHITE BLOOD COUNT 13.8 10^3/ul (4.5-11.0)
[2017-04-27 03:03] LABS: INR 1.04 (0.93-1.08); PARTIAL THROMBOPLASTIN TIME 29.4 Seconds (25.1-36.5)
[2017-04-27 03:04] LABS: TROPONIN I < 0.01 ng/mL
[2017-04-27 03:18] LABS: ALB/GLOB RATIO 1.4 (1.1-1.8); ALKALINE PHOSPHATASE 110 U/L (38-126); ALT/SGPT 24 U/L (7-56); AMYLASE 130 U/L (35-125); AST/SGOT 28 U/L (14-36); BILIRUBIN,TOTAL 0.7 mg/dL (0.2-1.3); BLOOD UREA NITROGEN 20 mg/dL (7-21); CALCIUM 9.7 mg/dL (8.4-10.5); CARBON DIOXIDE 23 mmol/L (21-33); CHLORIDE 99 mmol/L (98-107); GFR AFRICAN-AMERICAN > 60; LIPASE 29 U/L (23-300); SODIUM 138 mmol/L (132-148); TOTAL PROTEIN 7.5 g/dL (5.8-8.3)
[2017-04-27 03:21] LABS: GLUCOSE,RANDOM 359 mg/dL (70-110)
[2017-04-27 04:05] LABS: BAND 9 % (0-2); NEUTROPHIL 79 % (50.0-70.0)
[2017-04-27 04:06] LABS: PLATELET ESTIMATE NORMAL (NORMAL)
--- NOTE | 2017-04-27 04:33 | CT ---
EXAM: CT Abdomen and Pelvis Without Intravenous Contrast CLINICAL HISTORY: 56 years old, female; Pain; Abdominal pain; Generalized; Additional info: Abd pain TECHNIQUE: Axial computed tomography images of the abdomen and pelvis without intravenous contrast. All CT scans at this facility use one or more dose reduction techniques, viz.: automated exposure control; ma/kV adjustment per patient size (including targeted exams where dose is matched to indication; i.e. head); or iterative reconstruction technique. Coronal and sagittal reformatted images were created and reviewed. COMPARISON: CT - ABD PELVIS IV CONTRAST ONLY 2015-07-31 16:32 FINDINGS: Limitations: Lack of intravenous contrast. Lower thorax: Minimal atelectasis/scarring. Valvular calcifications. Small hiatal hernia. ABDOMEN: Liver: Unremarkable. Gallbladder and bile ducts: Gallbladder distention. No calcified gallstones. No significant ductal dilation. Pancreas: Unremarkable. No ductal dilation. Spleen: No splenomegaly. Adrenals: No mass. Kidneys and ureters: No renal calculi. No hydronephrosis. Stomach and bowel: Few scattered diverticula within colon. Minimal stranding about distal transverse, descending colon. No obstruction. Appendix: No findings to suggest acute appendicitis. PELVIS: Bladder: Unremarkable. No stones. Reproductive: Unremarkable as visualized. ABDOMEN and PELVIS: Intraperitoneal space: No significant fluid collection. No free air. Bones/joints: Mild degenerative changes of spine. No acute fracture. Soft tissues: Unremarkable. Vasculature: Mild atherosclerotic disease. No aneurysm. Lymph nodes: No pathologically enlarged lymph nodes. IMPRESSION: 1. Probable mild colitis, nonspecific. Consider inflammatory, infectious, or ischemic etiologies. 2. Gallbladder distention. Consider ultrasound. 3. Incidental/non-acute findings are described above.
[2017-04-27] MEDS ORDERED: metroNIDAZOLE IV 500 mg/100 ml 500 MG/100 ML BAG IVPB STA (04:44)
[2017-04-27] MEDS ORDERED: Ciprofloxacin 400mg/200ml D5W 400 MG/200 ML BAG IVPB STA (04:47)
--- NOTE | 2017-04-27 05:23 | CP.PCM.HP ---
Addendum entered and electronically signed by Kurt Dumont DO 04/27/17 06:22 : CT showing Original Note: <Kurt Dumont - Last Filed: 04/27/17 06:20> History of Present Illness - History of Present Illness History of Present Illness: 56 year old female with a past medical of hypertension, DM II, and diverticulitis who presents with diarrhea of 1 day duration, reported rectal bleeding, and severe LLQ pain. Patient reports having diarrhea 6-7 bouts of very foul smelling. She endorses a history of colitis, and states she knew her colitis was acting up as soon as soon as she got diarrhea this morning. She states in the past she bled so much from an episode similar to the one she's experiencing that she was almost about to given 1 unit of PRBCs. She does not attribute the diarrhea to any new foods, recent sick contacts, or exposure to anything out of the ordinary, and denies any recent antibiotic use. She reports blood with her bowel movements but cannot elaborate on the quantity or quality of the blood in relations to her stools/diarrhea. She denies fever, chills, PMD: Dr. Ramirez PSH: Denies Family history: High blood pressure PMH: Diverticulitis, hypertension, DM II, affective disorder-unspecified Social: Every day smoker, denies alcohol and illicit drugs. Present on Admission - Present on Admission Any Indicators Present on Admission: Yes History of Uncontrolled Diabetes: Yes Review of Systems - Constitutional Constitutional: absent: Anorexia, Chills, Daytime Sleepiness - EENT Eyes: absent: Blind Spots, Diplopia, Loss of Peripheral Vision Nose/Mouth/Throat: absent: Dry Mouth, Odynophagia - Cardiovascular Cardiovascular: absent: Claudication, Irregular Heart Rhythm, Palpitations - Respiratory Respiratory: absent: Stridor, Pain on Inspiration, Chest Congestion - Gastrointestinal Gastrointestinal: Abdominal Pain, Loose Stools - Musculoskeletal Musculoskeletal: absent: Abnormal Gait, Limited Range of Motion - Integumentary Integumentary: absent: Change in Pigmentation, Hirsutism, Pruritus - Neurological Neurological: absent: Dizziness, Numbness, Loss of Vision, Paresthesias - Psychiatric Psychiatric: absent: Behavioral Changes, Change in Appetite, Hopelessness - Endocrine Endocrine: absent: Change in Body Appearance, Deepening of Voice, Excessive Sweating - Hematologic/Lymphatic Hematologic: absent: Easy Bleeding, Easy Bruising Past Patient History - Infectious Disease Hx of Infectious Diseases: None - Tetanus Immunizations Tetanus Immunization: Unknown - Past Medical History & Family History Past Medical History?: Yes - Past Social History Smoking Status: Heavy Smoker > 10 Cigarettes Daily - CARDIAC Hx Cardiac Disorders: Yes Hx Hypertension: Yes - PULMONARY Hx Respiratory Disorders: Yes Hx Pneumonia: Yes - NEUROLOGICAL Hx Neurological Disorder: No - HEENT Hx HEENT Problems: No - RENAL Hx Chronic Kidney Disease: No - ENDOCRINE/METABOLIC Hx Endocrine Disorders: Yes Hx Diabetes Mellitus Type 2: Yes - HEMATOLOGICAL/ONCOLOGICAL Hx Blood Disorders: No - INTEGUMENTARY Hx Dermatological Problems: No Other/Comment: cellulitis to the lower extremities since 08/23 - MUSCULOSKELETAL/RHEUMATOLOGICAL Hx Musculoskeletal Disorders: Yes Hx Arthritis: Yes Hx Falls: No - GASTROINTESTINAL Hx Gastrointestinal Disorders: Yes Hx Diverticulitis: Yes Hx Gastroesophageal Reflux: Yes Other/Comment: colitis - GENITOURINARY/GYNECOLOGICAL Hx Genitourinary Disorders: Yes Hx Incontinence: Yes (stress incontinece) Hx Urinary Tract Infection: Yes - PSYCHIATRIC Hx Psychophysiologic Disorder: Yes Hx Anxiety: Yes Hx Bipolar Disorder: Yes Hx Depression: Yes Hx Schizophrenia: Yes Hx Substance Use: No - SURGICAL HISTORY Hx Cardiac Catheterization: Yes Other/Comment: Colonoscopy. Endoscopy - ANESTHESIA Hx Anesthesia: Yes Hx Anesthesia Reactions: No Hx Malignant Hyperthermia: No Meds Allergies/Adverse Reactions: Allergies Allergy/AdvReac Type Severity Reaction Status Date / Time amoxicillin [From Augmentin] Allergy NAUSEA Verified 03/04/17 17:43 clarithromycin [From Biaxin] Allergy RASH Verified 03/04/17 17:43 clavulanic acid Allergy NAUSEA Verified 03/04/17 17:43 [From Augmentin] Physical Exam - Constitutional Appears: Other (not well, hunched over holding her bowels) - Head Exam Head Exam: ATRAUMATIC, NORMOCEPHALIC - Eye Exam Eye Exam: EOMI, Normal appearance, PERRL - ENT Exam ENT Exam: Mucous Membranes Dry, Normal Oropharynx - Neck Exam Neck exam: Positive for: Normal Inspection - Respiratory Exam Respiratory Exam: Clear to Auscultation Bilateral, NORMAL BREATHING PATTERN - Cardiovascular Exam Cardiovascular Exam: RRR, +S1, +S2 - GI/Abdominal Exam GI & Abdominal Exam: Hyperactive Bowel Sounds, Tenderness (LLQ). absent: Rebound, Rigid - Rectal Exam Additional comments: patient outright refused rectal examination - Extremities Exam Extremities exam: Positive for: normal inspection. Negative for: calf tenderness, joint swelling - Back Exam Back exam: NORMAL INSPECTION. absent: CVA tenderness (L), CVA tenderness (R) - Neurological Exam Neurological exam: Alert, CN II-XII Intact, Oriented x3 - Psychiatric Exam Psychiatric exam: Normal Affect, Normal Mood - Skin Skin Exam: Dry, Intact, Normal Color, Warm Results - Vital Signs Recent Vital Signs: Last Vital Signs Temp 98.1 F 04/27/17 01:38 Pulse 97 H 04/27/17 04:37 Resp 16 04/27/17 04:37 BP 137/74 04/27/17 04:37 Pulse Ox 100 04/27/17 04:37 - Labs Result Diagrams: 04/27/17 02:00 04/27/17 02:00 Labs: Laboratory Results - last 24 hr 04/27/17 04/27/17 04/27/17 02:00 02:00 02:00 WBC 13.8 H D RBC 5.27 Hgb 16.0 D Hct 46.9 MCV 89.0 MCH 30.4 MCHC 34.1 RDW 13.3 Plt Count 223 MPV 9.6 Gran % 92.5 H Lymph % (Auto) 3.4 L [place] % (Auto) 3.9 Eos % (Auto) 0.1 L Baso % (Auto) 0.1 Gran # 12.79 H Lymph # 0.5 L [place] # 0.5 Eos # 0.0 Baso # 0.01 Neutrophils % (Manual) 79 H Band Neutrophils % 9 H Lymphocytes % (Manual) 8 L Monocytes % (Manual) 4 Platelet Evaluation Normal PT 11.3 INR 1.04 APTT 29.4 Sodium 138 Potassium 5.0 Chloride 99 Carbon Dioxide 23 Anion Gap 21 H BUN 20 Creatinine 1.1 Est GFR ( Amer) > 60 Est GFR (Non-Af Amer) 51 Random Glucose 359 H* D Calcium 9.7 Total Bilirubin 0.7 AST 28 ALT 24 Alkaline Phosphatase 110 Lactate Dehydrogenase 516 Total Creatine Kinase 67 Troponin I < 0.01 Total Protein 7.5 Albumin 4.3 Globulin 3.2 Albumin/Globulin Ratio 1.4 Amylase 130 H Lipase 29 Assessment & Plan - Assessment and Plan (Free Text) Assessment: 56 year old obese female with a past medical history of uncontrolled DM, hypertension, smoking, and diverticulitis who presents with profuse diarrhea with reports of intermittent blood in stool and severe left lower quandrant pain. Labs relevant for leukocytosis with neutrophil predominance and CT A/P showing Plan: 1) Diverticulitis versus Colitis - CT A/P reads as Probable mild colitis, nonspecific. Consider inflammatory, infectious, or ischemic etiologies. Gallbladder distention. Consider ultrasound. - C. Difficile antigen and toxin ordered - Metronidazole and ciprofloxacin - WBC 13.9, 98% neutrophils, with band neutrophils - Clear liquid diet - GI consult - Patient outright refused rectal examination offered by me. - Consider abdominal 2) Hypertension - Diltiazem 340 PO daily - Lasix 40 mg PO daily - Enalapril 10 mg PO daily 3) DM II -Insulin sliding scale (high) - Levemir HS (please contact pharmacy or ask patient what her dose of this medication is) 4) Affective disorder - Geodon 80 mg HS -Divalproex 1 gram BID - Amitryptyline 100 mg PO HS - Xanax 1 mg TID PRN 5) GI/DVT prophylaxis - Protonix 40 mg - SCD - Date & Time Date: 04/27/17 Time: 06:09 <Zoraida Ta - Last Filed: 04/27/17 08:24> Results - Vital Signs Recent Vital Signs: Last Vital Signs Temp 99 F 04/27/17 07:33 Pulse 102 H 04/27/17 07:33 Resp 20 04/27/17 07:33 BP 146/71 04/27/17 07:33 Pulse Ox 100 04/27/17 04:37 - Labs Result Diagrams: 04/27/17 02:00 04/27/17 02:00 Labs: Laboratory Results - last 24 hr 04/27/17 07:09 POC Glucose (mg/dL) 283 H Attending/Attestation - Attestation I have personally seen and examined this patient.: Yes I have fully participated in the care of the patient.: Yes I have reviewed all pertinent clinical information: Yes Notes (Text): 04/27/17 08:22 Agree with documentation and orders placed. 04/27/17 08:23
[2017-04-27] MEDS ORDERED: Morphine 2 mg/ml ISec IVP PRN (06:10)
[2017-04-27] MEDS: Insulin Reg-HIGH-Coverage SC SCH ×4 (08:07→23:33)
--- NOTE | 2017-04-27 08:40 | RAD ---
HISTORY: cp COMPARISON: 11/26/2016 9:37 p.m. FINDINGS: LUNGS: No consolidation. PLEURA: No significant pleural effusion identified, no pneumothorax apparent. CARDIOVASCULAR: Mild cardiomegaly- similar. Central pulmonary venous congestion- similar - likely accentuated-large body habitus OSSEOUS STRUCTURES: Thoracic spondylosis VISUALIZED UPPER ABDOMEN: Normal. OTHER FINDINGS: None. IMPRESSION: Cardiomegaly with mild central pulmonary venous congestion both similar .
[2017-04-27] MEDS: HYDROmorphone 2 mg/ml ISec IVP PRN ×4 (10:16→21:40)
--- NOTE | 2017-04-27 12:42 | CON ---
DATE: 04/27/2017 CONSULTATION GASTROENTEROLOGY REQUESTING PHYSICIAN: Dr. Darek Ramirez. REASON FOR CONSULT: I have been asked to see this 56-year-old female with known history of diverticulitis/colitis, hypertension, type 2 diabetes mellitus, morbid obesity, depression, who comes to the hospital with a 1-day history of diarrhea and left upper quadrant abdominal pain. She has also had intermittent blood-streaked stools. The patient states that she had about six episodes of loose bowel movements over the last 12 hours. The patient states that she was on antibiotics for several months for an infection in her leg. The patient apparently had an endoscopy and colonoscopy with Dr. Pugh approximately 3 years ago. She denies any fevers, chills, chest pain, shortness of breath, hematuria, pneumaturia. PAST MEDICAL HISTORY: As above. Again, she has a history of diverticulitis, colitis, hypertension, type 2 diabetes mellitus, morbid obesity, depression. SOCIAL HISTORY: She denies cigarette smoking or alcohol use. FAMILY HISTORY: Noncontributory. REVIEW OF SYSTEMS: A 14-point review of systems is notable for diarrhea, left upper quadrant abdominal pain, blood-streaked stools. ALLERGIES: INCLUDE AUGMENTIN AND CLARITHROMYCIN. HOME MEDICATIONS: Include Levemir, enalapril, Depakote, Elavil, Xanax, Cardizem CD 340 mg once a day, Geodon 80 mg at night, tramadol 50 mg every 6 hours as needed for abdominal pain, Protonix 40 mg once a day, Humulin NPH [id number] 44 units subcutaneously twice a day, and Lasix 40 mg once a day. PHYSICAL EXAMINATION: GENERAL: Obese female, lying in bed, in no acute distress. VITAL SIGNS: Reveal temperature of 99, blood pressure 146/71, heart rate of 102. HEENT: Reveals sclerae to be white. Conjunctivae pink. NECK: Supple. CHEST: Lungs are clear. HEART: Reveals regular rate and rhythm. ABDOMEN: Obese, soft. She has moderate left upper quadrant tenderness with some voluntary guarding. There is no rebound. EXTREMITIES: Show no edema. RECTAL: Shows no mass. No blood. No hemorrhoids. LABORATORY DATA: Reveal white blood cell count 13.8, hemoglobin 16, platelet count of 223,000. Coags reveal normal PT/INR. Chemistry reveals BUN 20, creatinine 1.1, blood sugar 283. AST, ALT, alk phos were all normal. CT scan of the abdomen and pelvis shows moderate amount of stool throughout the colon. There is some stranding around the distal transverse colon and proximal descending colon. There is scattered diverticula throughout the colon. IMPRESSION: A 56-year-old female with a history of diverticulitis/colitis, not on irritable bowel disease medications with 1 day of left upper quadrant abdominal pain and diarrhea with a CT scan of the abdomen showing some pericolonic stranding around the distal transverse colon and proximal descending colon to mid descending colon. I suspect that this is most likely a diverticulitis, although an acute self-limited colitis is also in the differential. The patient may have pseudomembranous colitis that she was on antibiotics for several months for an infection of her lower extremity. RECOMMENDATIONS: 1. She is currently on Cipro 400 IV q.12 as well as Flagyl 500 mg IV q.8. I would continue these antibiotics. 2. Maintain on clear liquid diet. 3. Close observation for worsening of abdominal pain. 4. Check stool for C. diff. Pablo Wallis MD
[2017-04-27] MEDS: diltiaZEM 180 mg/24 Hours CD Cap PO SCH (13:14)
[2017-04-27] MEDS: metroNIDAZOLE IV 500 mg/100 ml 500 MG/100 ML BAG IVPB SCH ×2 (13:14→22:46)
--- NOTE | 2017-04-27 14:24 | PN ---
DATE: 04/27/2017 SUBJECTIVE: I was called by the hospice to change it to my service, I had seen her in the office before, that is okay I will start seeing her. She is here for colitis with elevated blood sugars and elevated white count. MEDICATIONS: She is on Cardizem, Cipro IV, Depakote, Dilaudid now for pain, she is in severe pain, Elavil, Flagyl IV, Geodon, insulin coverage, I called in Endocrinology for elevated blood sugars, Lasix, Protonix, IV fluids, Ultram, Xanax, Zestril, Zofran, and some clear fluids. PHYSICAL EXAMINATION VITAL SIGNS: She has a 99 temperature, 102 pulse, 146/71 blood pressure, 20 respiratory rate, and 100% O2 saturation room air. HEENT: Head is atraumatic and normocephalic. HEART: Regular rate. LUNGS: Decreased breath sounds, but clear. ABDOMEN: Morbidly morbidly obese, distended, and decreased blood sounds. Mild discomfort and no real guarding or rebound. EXTREMITIES: Have trace edema. LABORATORY DATA: She has a 138 sodium, potassium is 5, BUN is 20, and creatinine is 1.1. Blood sugar is 259 and then it went to 283. Calcium is 9.7, total bilirubin is 0.7, AST is 28, ALT is 24, and alkaline phosphatase is 110. Lactate dehydrogenase is 516 and total creatinine kinase is 67. Troponin I is less than 0.01. Total protein is 7.5, albumin is 4.3, amylase is 130 a little bit high, and lipase is 29. INR is 1.04. White count is 30.8 high, 16 hemoglobin, 46.9 hematocrit and 223 platelets. ASSESSMENT AND PLAN: She is here for colitis, she has abdominal pain, diabetes, and high white count. She is morbidly obese. She had a CAT scan and a chest x-ray cardiomegaly, signs of pulmonary vascular congestion, I will decrease the intravenous fluids. CAT scan showed mild colitis, consider inflammatory infectious etiologies. We will continue with aggressive treatment and care, intravenous antibiotics, clear fluid at most, intravenous fluids will decrease at rate and we will continue with the Lasix. We changed the pain medication to Dilaudid, since she is in severe pain this morning. Darek Ramirez DO YAN
[2017-04-27] MEDS ORDERED: Ciprofloxacin 400mg/200ml D5W 400 MG/200 ML BAG IVPB SCH (19:00)
[2017-04-27] MEDS: Divalproex 500 mg ER (ONCE DAILY formulation) PO SCH (22:45)
[2017-04-28] MEDS: HYDROmorphone 2 mg/ml ISec IVP PRN ×5 (01:12→20:18)
--- NOTE | 2017-04-28 02:49 | CON ---
ENDOCRINOLOGY CONSULT DATE: HISTORY OF PRESENT ILLNESS: This is a 56-year-old female with known history of type 2 insulin-requiring diabetes, on a premixed insulin regimen, presenting here with apparent recent rectal bleeding and supervening diarrhea with severe left lower quadrant pain and has been evaluated to have acute colitis and is being referred now for diabetic evaluation and management. PAST MEDICAL HISTORY: As mentioned above, history of type 2 insulin-requiring diabetes, she actually is currently on a premixed insulin regimen using Humulin 70/30 given as 44 units subcu b.i.d. and Levemir given as a viable dose at bedtime daily as noted; history of hypertensive cardiovascular disease and dyslipidemia; history of chronic schizoaffective disorder, the exact details are not known at this time; history of prior chronic diverticulitis with previous admissions for exacerbations of the same; history of underlying morbid obesity with expected increased insulin resistance thereof; history of hypertension and dyslipidemia. FAMILY HISTORY: Positive for hypertension and heart disease. SOCIAL HISTORY: The patient has supportive family. Admits to nicotine dependence with daily smoking close to a pack a day as noted. REVIEW OF SYSTEMS: As mentioned above, admits to generalized body weakness with easy fatigability and tiredness and suboptimal energy level. Also admits to progressive bouts of dizziness and lightheadedness, worse on the day of admission. No chest pains or palpitations or PND. Her oral intake has been variable with nausea, dyspepsia and diffuse left lower quadrant pain, progressively worsening in intensity with supervening loose watery diarrhea and apparent rectal bleeding as noted thereof. Also admits to recent polyuria and nocturia as noted. PHYSICAL EXAMINATION: GENERAL/VITAL SIGNS: This is an obese female, in no apparent distress with a blood pressure of 140/80, pulse of 70 beats per minute and regular, temperature 98, respirations 20, height is 5 feet 2 inches, weight is 252 pounds. HEENT: Head normocephalic. Eyes anicteric with pink conjunctivae. Funduscopy not possible at this time. Ears, nose and throat otherwise normal. NECK: Supple. Thyroid gland is normal in size. No carotid bruits or cervical adenopathy. CARDIOPULMONARY: Adynamic precordium. S1, S2 is rapid and regular. LUNGS: Clear to auscultation. ABDOMEN: Obese, soft with positive bowel sounds. EXTREMITIES: Show +1 bipedal edema, erythema and excoriations in the distal one-third of both lower extremities. Pulses are +2 bilaterally. LABORATORIES: WBC is 20, hemoglobin of 16, hematocrit of 46.9, MCV 89, platelets 223, white cells are elevated as noted. Chemistries, sodium 138, potassium 5.0, chloride 99, CO2 of 23, glucose 359, and creatinine 1.1. Her glucose levels have ranged from 270 to 283 mg/dL. ASSESSMENT: This is a 56-year-old female with acute onset of left lower quadrant pain and supervening nausea, dyspepsia and loose watery diarrhea and also with supervening hyperglycemic acceleration with a recent history of uncontrolled type 2 insulin-requiring diabetes as noted thereof, and she also has underlying morbid obesity with expected increased insulin resistance and hefty insulin requirements thereof. PLAN OF MANAGEMENT: As discussed with the patient and staff, we will modify her current insulin regimen and because she is only on a liquid diet, we will modify the coverage scale to a low-dose algorithm to obviate hypoglycemia and detailed orders have been given. We are awaiting the GI evaluation for possible upper and lower endoscopy as noted. We will add basal insulin tonight with Levemir to be given as 10 units subcu at bedtime daily to start tonight. We will obtain serial chemistries and supplement accordingly as needed. We will also obtain hemoglobin A1c to confirm her prior glycemic control and baseline thyroid function studies will be ordered. We will follow and advise accordingly. Lorri Cao MD
[2017-04-28] MEDS: Pantoprazole 40 mg EC Tab PO SCH (05:13)
[2017-04-28] MEDS: metroNIDAZOLE IV 500 mg/100 ml 500 MG/100 ML BAG IVPB SCH ×3 (05:13→21:38)
[2017-04-28 07:03] LABS: ALB/GLOB RATIO 1.1 (1.1-1.8); ALKALINE PHOSPHATASE 63 U/L (38-126); ALT/SGPT 21 U/L (7-56); AST/SGOT 15 U/L (14-36); BILIRUBIN,TOTAL 0.4 mg/dL (0.2-1.3); BLOOD UREA NITROGEN 19 mg/dL (7-21); CALCIUM 8.6 mg/dL (8.4-10.5); CARBON DIOXIDE 26 mmol/L (21-33); CHLORIDE 98 mmol/L (98-107); GFR AFRICAN-AMERICAN > 60; GLUCOSE,RANDOM 224 mg/dL (70-110); POTASSIUM 4.5 mmol/L (3.6-5.0); SODIUM 131 mmol/L (132-148); TOTAL PROTEIN 5.8 g/dL (5.8-8.3)
[2017-04-28 07:14] LABS: BASO # 0.01 K/mm3 (0.0-2.0); BASO % 0.1 % (0.0-3.0); EOS # 0.1 (0.0-0.7); EOS % 0.9 % (1.5-5.0); GRAN % 77.3 % (50.0-68.0); HEMATOCRIT 37.3 % (36.0-48.0); LYMPH # 1.3 (1.2-3.4); LYMPH % 11.1 % (22.0-35.0); MEAN CELL VOLUME 89.2 fl (80.0-105.0); MEAN CORPUSCULAR HEMOGLOBIN 29.4 pg (25.0-35.0); MEAN PLATELET VOLUME 9.5 fl (7.0-11.0); MONO # 1.2 (0.1-0.6); MONO % 10.6 % (1.0-6.0); RED CELL DISTRIBUTION WIDTH 13.7 % (11.5-14.5); WHITE BLOOD COUNT 11.6 10^3/ul (4.5-11.0)
[2017-04-28] MEDS ORDERED: cefTRIAXone 2 GM IN NS 2 GM/100 ML BAG IVPB SCH (10:00)
--- NOTE | 2017-04-28 10:36 | PN ---
DATE: 04/28/2017 SUBJECTIVE: I saw her in bed. She is still having abdominal pain. She is not feeling well. She is on liquid diet. Cannot really eat that well, still has abdominal pain. She is on Zofran, Zestril, Xanax, Protonix IV, Lasix, insulin, Geodon, metronidazole IV, Elavil, Dilaudid, Depakote, and Cardizem. PHYSICAL EXAMINATION: VITAL SIGNS: She has 97 temperature, 109 pulse, 108/69 blood pressure, 20 respiratory rate, 96% O2 sat on room air. HEENT: Head is atraumatic and normocephalic. Throat is dry. NECK: Supple. HEART: Regular rate. LUNGS: Decreased breath sounds. Poor inspiration, but clear. ABDOMEN: Morbidly obese. Decreased bowel sounds, faint if any. Mild discomfort to palpation. No guarding or rebound. EXTREMITIES: Trace edema. LABORATORY DATA: She has positive occult blood. She is being seen by GI. 11.6 white count, still elevated, came down little bit, 12.3 hemoglobin, she dropped 4 g of hemoglobin with positive stool. 37.3 hematocrit with 194 platelets. 131 sodium, 4.5 potassium, BUN 90, creatinine 1. GFR is 67. Sugar is 202, calcium is 8.6, total bilirubin is 0.4. AST is 15, ALT is 21, alkaline phosphatase is 53, total protein is 5.8. Occult blood is positive. ASSESSMENT AND PLAN: She is being seen by Endocrinology for high blood sugars and GI for GI bleed and colitis. She is on Cipro IV, Flagyl IV. Check stool for Clostridium difficile. If she has positive stool, then I need to do colonoscopy and upper endoscopy. I am watching her blood sugars. She is on Levemir and I made her an inpatient. Darek Ramirez DO
--- NOTE | 2017-04-28 10:37 | CARD ---
APPROVED REPORT EKG Measurement Heart [id number] <Conclusion> Normal sinus rhythm Leftward axis PRWP No change
--- NOTE | 2017-04-28 10:48 | PN ---
DATE: 04/28/2017 SUBJECTIVE: The patient is lying in bed, comfortable. Her abdominal cramps are less. She denies any nausea or vomiting. She had some blood-streaked stools yesterday. She has not had any diarrhea in 12 hours. OBJECTIVE: VITAL SIGNS: Reveal temperature of 98.2, blood pressure 109/58, heart rate of 100. HEENT: Reveal sclerae to be white. Conjunctivae pink. NECK: Supple. CHEST: Lungs are clear. HEART EXAM: Reveals regular rate and rhythm. ABDOMEN: Obese. There is less left upper quadrant tenderness without any rebound or guarding. EXTREMITIES: Show no edema. LABORATORY DATA: Reveal white blood cell count 11.6, hemoglobin 12.3, BUN 19, creatinine 1. Stool for C. diff is negative. IMPRESSION: Probable diverticulitis/colitis with negative stool for clostridium difficile. RECOMMENDATIONS: 1. Continue IV Flagyl 500 mg q.8 hours. 2. Continue IV Cipro 400 q.12. Pablo Wallis MD
[2017-04-28] MEDS: diltiaZEM 180 mg/24 Hours CD Cap PO SCH (12:06)
[2017-04-28] MEDS: Insulin Reg-HIGH-Coverage SC SCH ×2 (12:08→14:45)
[2017-04-28] MEDS ORDERED: Insulin Human NPH/Reg 70/30 Vial(3 ml) SC SCH (16:30)
[2017-04-28] MEDS: Insulin Reg-LOW-Coverage SC SCH ×2 (16:52→21:36)
--- NOTE | 2017-04-28 19:20 | PN ---
ENDOCRINOLOGY FOLLOWUP NOTE DATE: LOCATION: Room 364. SUBJECTIVE: This is a 56-year-old female with severe diffuse abdominal pain and loose watery diarrhea and is currently only on a liquid diet as noted with supervening hyperglycemic acceleration as noted and she is being followed closely for metabolic management. She was actually using a premixed insulin regimen at home with Humulin 70/30 given twice daily as noted. Her glycemic levels today are fluctuating ranging from 202 to 283 mg/dL. LABORATORY DATA: Her latest chemistry showed a BUN of 19, sodium 131, potassium 4.5, chloride 98, CO2 of 26, glucose 224, creatinine 1.0. ASSESSMENT AND PLAN: So at this time actually we are adding basal insulin with Levemir to be given as 12 units subcu at bedtime daily to start tonight. We will modify her coverage scale to obviate hypoglycemia and detailed orders have been given. We will switch over to a low dose correction scale using regular insulin was given. We also start her on a very low dose of a premixed insulin regimen as ordered. We will start her with Humulin 70/30 given as 12 units a.c. breakfast and 8 units a.c. dinner as ordered. Moreover, we will also initiate a premixed insulin regimen in the evening with Humulin 70/30 given as 8 units of subcu a.c. dinner to start tonight as ordered. We will titrate incrementally as indicated to optimize metabolic control. Once the GI workup is completed, then we will advance the premixed insulin regimen to optimize her metabolic goals as indicated. We will obtain serial chemistries and supplement accordingly as needed. In the meantime, we will continue also the IV hydration as given to optimize her fluids and electrolytes levels as noted. Also noted correction scale as given using a low dose correction scale to obviate hypoglycemia and detailed orders have been given. We will follow and advise accordingly. Lorri Cao MD
[2017-04-28] MEDS: Divalproex 500 mg ER (ONCE DAILY formulation) PO SCH (21:32)
[2017-04-28] MEDS ORDERED: Insulin Detemir 100 units/ml Vial (Levemir) SC SCH (22:00)
[2017-04-29] MEDS: HYDROmorphone 2 mg/ml ISec IVP PRN ×2 (00:16→06:56)
[2017-04-29] MEDS: metroNIDAZOLE IV 500 mg/100 ml 500 MG/100 ML BAG IVPB SCH (05:38)
[2017-04-29] MEDS: Pantoprazole 40 mg EC Tab PO SCH (05:39)
[2017-04-29 07:27] LABS: ALKALINE PHOSPHATASE 75 U/L (38-126); ALT/SGPT 22 U/L (7-56); AST/SGOT 15 U/L (14-36); BILIRUBIN,TOTAL 0.2 mg/dL (0.2-1.3); BLOOD UREA NITROGEN 19 mg/dL (7-21); CALCIUM 8.6 mg/dL (8.4-10.5); CARBON DIOXIDE 26 mmol/L (21-33); CHLORIDE 100 mmol/L (98-107); GFR AFRICAN-AMERICAN > 60; GLUCOSE,RANDOM 174 mg/dL (70-110); POTASSIUM 4.3 mmol/L (3.6-5.0); SODIUM 133 mmol/L (132-148); TOTAL PROTEIN 5.6 g/dL (5.8-8.3)
[2017-04-29 07:30] VITALS: BP 118/62; PULSE 80; RESP 20; TEMP 99; O2SAT 94
[2017-04-29] MEDS ORDERED: Insulin Human NPH/Reg 70/30 Vial(3 ml) SC SCH (07:30)
[2017-04-29] MEDS: Insulin Reg-LOW-Coverage SC SCH (07:51)
[2017-04-29 08:39] LABS: BASO # 0.02 K/mm3 (0.0-2.0); BASO % 0.2 % (0.0-3.0); EOS # 0.2 (0.0-0.7); EOS % 2.3 % (1.5-5.0); GRAN # 6.47 (1.4-6.5); GRAN % 75.3 % (50.0-68.0); HEMATOCRIT 32.6 % (36.0-48.0); LYMPH # 1.3 (1.2-3.4); LYMPH % 14.8 % (22.0-35.0); MEAN CELL VOLUME 88.8 fl (80.0-105.0); MEAN CORPUSCULAR HEMOGLOBIN 29.7 pg (25.0-35.0); MEAN CORPUSCULAR HGB CONC 33.4 g/dl (31.0-37.0); MEAN PLATELET VOLUME 9.2 fl (7.0-11.0); MONO # 0.6 (0.1-0.6); MONO % 7.4 % (1.0-6.0); RED CELL DISTRIBUTION WIDTH 13.4 % (11.5-14.5); WHITE BLOOD COUNT 8.6 10^3/ul (4.5-11.0)
[2017-04-29] MEDS: diltiaZEM 180 mg/24 Hours CD Cap PO SCH (10:51)
--- NOTE | 2017-04-29 12:28 | PN ---
DATE: 04/29/2017 SUBJECTIVE: The patient is lying in bed, comfortable. Her abdominal pain has resolved. She has not had any further diarrhea or rectal bleeding. She is tolerating solid foods. OBJECTIVE: VITAL SIGNS: Reveal temperature of 99, blood pressure 118/62, heart rate of 80. HEENT: Reveals sclerae to be white. Conjunctivae pink. NECK: Supple. CHEST: Reveals lungs . HEART: Reveals regular rate and rhythm. ABDOMEN: Soft, obese. There is no further left upper quadrant tenderness. There is no rebound. There is no guarding. EXTREMITIES: Show no edema. LABORATORY DATA: Revealed , hemoglobin 10.9. IMPRESSION: 1. Diverticulitis/colitis of the distal transverse colon and descending. 2. Anemia. 3. Diabetes mellitus. RECOMMENDATIONS: 1. The patient has not been instructed to continue a low-fat, lactose-free, low-residue diet for 4 weeks. 2. She is to continue Cipro 500 mg twice a day as well as Flagyl 500 mg three times a day for 10 days. 3. She is to follow up with her primary care physician. Pablo Wallis MD
--- NOTE | 2017-04-29 16:25 | PN ---
DATE: ENDO FOLLOWUP NOTE SUBJECTIVE: This is a 56-year-old female with recent uncontrolled type 2 insulin-requiring diabetes, now being followed closely for metabolic management. Her glycemic levels are fluctuating, but improved. Her latest chemistries showed BUN of 19, sodium of 133, potassium of 4.3, chloride of 100, CO2 of 26, glucose of 174, and creatinine of 0.9. Her glucose levels are fluctuating as expected now with improved oral intake as given. Her glucose levels have ranged from 183 mg/dL to 260 mg/dL. So at this time, I would actually recommend the resumption of her premixed insulin regimen upon discharge today as she was on Humulin 70/30 given as 44 units b.i.d. by her primary physician. She will be followed with her doctor for outpatient metabolic and medical management. We will follow with you. Lorri Cao MD
--- NOTE | 2017-04-30 03:46 | DS ---
HISTORY OF PRESENT ILLNESS: I saw this morning, resting comfortably in bed. She is alert and comfortable. No pain. She is eating better. She is very hungry. She has passed some gas. No bowel movement, but she is feeling better, would like to go home today. We will see what we can do. PHYSICAL EXAMINATION: VITAL SIGNS: 99 temperature, 80 pulse, 118/62 blood pressure, 20 respiratory rate, 94% O2 sat on room air. HEENT: Head is atraumatic, normocephalic. Throat is moist. NECK: Supple. HEART: Regular rate. LUNGS: Decreased breath sounds, but clear to auscultation. ABDOMEN: Morbidly obese, nontender, soft. Positive bowel sounds. No guarding, rebound, CVA tenderness. EXTREMITIES: No edema. MEDICATIONS: She is currently on Cardizem, Depakote, Dilaudid, which I just stopped, is not taking Elavil, Flagyl IV, which I can change to p.o., Geodon, Lasix, Levemir, Protonix, Rocephin, which I can change to Cipro, she is allergic to that, Xanax, and Zestril. LABORATORY DATA: So my plan is going to be possibly discharge today. She has 133 sodium, potassium 4.3, BUN is 90, creatinine 0.9, GFR is greater than 60, sugar is 174, calcium is 8.6, total bilirubin is 0.2, AST is 15, ALT is 22, alkaline phosphatase is 25. Total protein is 5.6. The CBC is pending this morning. PLAN: I put a we could discharge her after lunch. I will put her on Cipro and Flagyl as far as medications plus a regular medications and she is here for colitis, abdominal pain, GI bleed. She should follow up in the office in a week. Darek Ramirez DO MTDD
== END 2017-04-29 11:58 | disposition home or self-care (01) | DRG 813 ==
LOC: ED 01:28 → ERH 04:44 → 3RNO 06:10 → OBSVTOIN 04-28 08:39
PROVIDERS: ADMIT Family Medicine; ATTEND Family Medicine
DX: K52.9 Noninfective gastroenteritis and colitis, unspecified (principal); E11.65 Type 2 diabetes mellitus with hyperglycemia; L03.115 Cellulitis of right lower limb; I11.9 Hypertensive heart disease without heart failure; E66.01 Morbid (severe) obesity due to excess calories; L03.116 Cellulitis of left lower limb; E78.5 Hyperlipidemia, unspecified; D64.9 Anemia, unspecified; K21.9 Gastro-esophageal reflux disease without esophagitis; F39 Unspecified mood [affective] disorder; F17.210 Nicotine dependence, cigarettes, uncomplicated; Z79.4 Long term (current) use of insulin; Z87.01 Personal history of pneumonia (recurrent); Z87.440 Personal history of urinary (tract) infections

== ENCOUNTER 2017-04-29 13:53 | Observation (INO) | payer OTHER ==
[2017-04-29 13:57] VITALS: BMI 46.0
--- NOTE | 2017-04-29 14:54 | ED PDOC ---
Arrival/HPI - General Chief Complaint: GI Problem Time Seen by Provider: 04/29/17 14:25 Historian: Patient - History of Present Illness Narrative History of Present Illness (Text): 04/29/17 15:59 Patient is a 56 yo female, past medical history of recent admission for colitis , presents to Emergency Department complaining of bleeding from rectum since being discharged this morning. Patient states that when she went home, she stood up at one point and "blood poured out". She states that she feels lightheaded and dizzy. Also has left sided abdominal pain which she states is persistent. Denies chest pain or shortness of breath. Denies lightheadedness or dizziness. Denies vaginal bleeding or discharge. Denies dysuria or frequency. Time/Duration: Prior to Arrival Symptom Onset: Sudden Past Medical History - Past History Past History: Non-Contributing - Infectious Disease Hx of Infectious Diseases: None - Tetanus Immunization Tetanus Immunization: Unknown - Past Medical History Past Medical History: Non-Contributing - Cardiac Hx Cardiac Disorders: Yes Hx Hypertension: Yes - Pulmonary Hx Respiratory Disorders: Yes Hx Pneumonia: Yes - Neurological Hx Neurological Disorder: No - HEENT Hx HEENT Disorder: No - Renal Hx Renal Disorder: No - Endocrine/Metabolic Hx Endocrine Disorders: Yes Hx Diabetes Mellitus Type 2: Yes - Hematological/Oncological Hx Blood Disorders: No - Integumentary Hx Dermatological Disorder: Yes Other/Comment: cellulitis to the lower extremities since 08/23, REFUSING TO HAVE LEGS ASSESSED TODAY - Musculoskeletal/Rheumatological Hx Musculoskeletal Disorders: No - Gastrointestinal Hx Gastrointestinal Disorders: Yes Hx Diverticulitis: Yes Hx Gastroesophageal Reflux: Yes Other/Comment: colitis - Genitourinary/Gynecological Hx Genitourinary Disorders: Yes Hx Urinary Tract Infection: Yes - Psychiatric Hx Psychophysiologic Disorder: Yes Hx Anxiety: Yes Hx Bipolar Disorder: Yes Hx Depression: Yes Hx Schizophrenia: Yes Hx Substance Use: No - Past Surgical History Past Surgical History: Non-Contributing - Surgical History Hx Cardiac Catheterization: Yes Other/Comment: Colonoscopy. Endoscopy - Anesthesia Hx Anesthesia: Yes Hx Anesthesia Reactions: No Hx Malignant Hyperthermia: No - Suicidal Assessment Feels Threatened In Home Enviroment: No Family/Social History Family/Social History: Unknown Family HX Smoking Status: Current Some Days Smoker Hx Alcohol Use: No Hx Substance Use: No Hx Substance Use Treatment: No Allergies/Home Meds Allergies/Adverse Reactions: Allergies amoxicillin [From Augmentin] Allergy (Verified 12/22/17 17:37) NAUSEA clarithromycin [From Biaxin] Allergy (Verified 04/29/17 17:37) RASH clavulanic acid [From Augmentin] Allergy (Verified 04/29/17 17:37) NAUSEA Home Medications: Home Meds Medication Instructions Recorded Confirmed Enalapril Maleate 10 mg PO DAILY 01/09/15 04/29/17 Pantoprazole Sodium [Protonix] 40 mg PO DAILY 08/25/16 04/29/17 [id number] CD [Cardizem CD] 340 mg PO DAILY 08/25/16 04/29/17 Insulin Detemir [Levemir] 0 units SC HS 09/22/16 04/29/17 ALPRAZolam [Xanax] 1 mg PO TID 12/10/16 04/29/17 Review of Systems - Review of Systems Constitutional: Fatigue. absent: Fevers Respiratory: absent: SOB Cardiovascular: absent: Chest Pain Gastrointestinal: Abdominal Pain, Appetite Changes, Hematochezia. absent: Hematemesis Genitourinary Female: absent: Dysuria, Hematuria Musculoskeletal: absent: Neck Pain Skin: absent: Rash Neurological: absent: Headache, Dizziness Endocrine: absent: Polyuria Hemo/Lymphatic: Easy Bleeding Psychiatric: absent: Depression Physical Exam Vital Signs Reviewed: Yes Vital Signs Temp Pulse Resp BP Pulse Ox 04/29/17 16:31 95 H 17 128/63 97 04/29/17 13:54 98.4 F 58 L 20 108/57 L 99 Temperature: Afebrile Appearance: Positive for: Non-Toxic Pain Distress: Mild Mental Status: Positive for: Alert and Oriented X 3 - Systems Exam Head: Present: Atraumatic Pupils: Present: PERRL Extroacular Muscles: Present: EOMI Mouth: Present: Moist Mucous Membranes Pharnyx: No: ERYTHEMA Nose (Internal): Present: Normal Inspection Neck: Present: Normal Range of Motion. No: Meningeal Signs Respiratory/Chest: Present: Clear to Auscultation. No: Respiratory Distress Cardiovascular: Present: Regular Rate and Rhythm, Murmurs Abdomen: Present: Tenderness, Distention, Other (llq abdominal pain). No: Peritoneal Signs, Rebound, Guarding Rectal: Present: Gross Blood, Other (dark red blood clots) Breast/Axillary: No: Erythema Genitourinary/Pelvic Exam: Present: Vaginal Discharge, Vaginal Bleeding Back: No: CVA Tenderness, Midline Tenderness Upper Extremity: No: Cyanosis Lower Extremity: Present: Edema, Neurovascularly Intact. No: CALF TENDERNESS Neurological: Present: Motor Func Grossly Intact, Normal Sensory Function Skin: Present: Warm Psychiatric: Present: Alert, Normal Insight, Normal Concentration Medical Decision Making ED Course and Treatment: Patient seen upon arrival. On initial examination there is no active bleeding noted on my rectal exam. She has pad between her legs but no blood is noted. She denies taking strong anticoagulants. Reports pain to her left side but states this is chronic, she is requesting pain medication however stating she takes pain medication at home. 04/29/17 15:20 Chest X-ray reviewed by radiologist, shows: Prominence of the pulmonary vasculature may be secondary to AP technique and/or pulmonary vascular congestion. No focal consolidation or pleural effusion. 04/29/17 17:06 Patient observed in ED. I reviewed most recent Hgb from this am. Repeat Hgb currently is at her baseline. She is ambulatory. I evaluated her bowel movement and there is small blood noted, but no melena or profuse bleeding noted. Will monitor symptoms, reassess, observe in ED. She is requesting food to eat, diet ordered. She is ambulatory with no lightheadedness or dizziness. 04/29/17 17:10 Patient states she moved her bowels again, NO blood noted. 04/29/17 17:16 Dr. Ramirez updated with patient's current labs and symptoms, will observe in ED and reassess. 04/29/17 18:30 Re-evaluation, patient with another bowel movement now with profuse bleeding. CV stable. 04/29/17 19:53 Patient with two additional mildly bloody bowel movements. CV stable. Not tachycardic. Reports persistent left sided abdominal pain. Repeat hgb 11.0. Given persistent bleeding pain after several hours of observation in the ED, case was discussed with Dr. Masters, now covering for Dr. Gill Ramirez, accepts admission for gi bleeding, abdominal pain. - Lab Interpretations Lab Results: 04/29/17 19:10 04/29/17 15:05 Lab Results 04/29/17 19:10: WBC 7.4, RBC 3.69, Hgb 11.0 L, Hct 32.7 L, MCV 88.6, MCH 29.8, MCHC 33.6, RDW 13.4, Plt Count 153, MPV 9.8, Gran % 77.0 H, Lymph % (Auto) 13.8 L, [place] % (Auto) 8.1 H, Eos % (Auto) 0.8 L, Baso % (Auto) 0.3, Gran # 5.69, Lymph # 1.0 L, [place] # 0.6, Eos # 0.1, Baso # 0.02 04/29/17 15:18: Urine Color Yellow, Urine Appearance Clear, Urine pH 6.0, Ur Specific [place] <= 1.005, Urine Protein Negative, Urine Glucose (UA) 250 H, Urine Ketones Negative, Urine Blood Trace-intact H, Urine Nitrate Negative, Urine Bilirubin Negative, Urine Urobilinogen 0.2, Ur Leukocyte Esterase Trace H , Urine RBC 0 - 2, Urine WBC 1 - 3, Ur Epithelial Cells 1 - 3 04/29/17 15:05: Sodium 135, Potassium 4.4, Chloride 97 L, Carbon Dioxide 29, Anion Gap 14, BUN 18, Creatinine 0.9, Est GFR ( Amer) > 60, Est GFR (Non- Af Amer) > 60, Random Glucose 228 H, Calcium 8.9, Total Bilirubin 0.2, AST 15, ALT 26, Alkaline Phosphatase 72, Lactate Dehydrogenase 350, Total Creatine Kinase 33 L, Troponin I < 0.01, Total Protein 6.5, Albumin 3.4, Globulin 3.1, Albumin/Globulin Ratio 1.1 04/29/17 15:05: PT 13.0 H, INR 1.19 H, APTT 27.5 04/29/17 15:05: WBC 8.1, RBC 3.99, Hgb 11.8 L, Hct 35.5 L, MCV 89.0, MCH 29.6, MCHC 33.2, RDW 13.4, Plt Count 159, MPV 9.8, Gran % 81.0 H, Lymph % (Auto) 12.3 L, [place] % (Auto) 5.7, Eos % (Auto) 0.9 L, Baso % (Auto) 0.1, Gran # 6.52 H, Lymph # 1.0 L, [place] # 0.5, Eos # 0.1, Baso # 0.01 - RAD Interpretation Radiology Orders: 04/29/17 14:29 CHEST PORTABLE [RAD] Stat - EKG Interpretation EKG Interpretation (Text): EKG at 15:25 normal sinus rhythm rate of [address] elevations Interpreted by ED Physician: Yes Type: 12 lead EKG - Medication Orders Current Medication Orders: Ciprofloxacin (Cipro) 500 mg PO ONCE STA PRN Reason: Protocol Stop: 04/29/17 19:51 Sodium Chloride (Sodium Chloride 0.9%) 1,000 mls @ 100 mls/hr IV .Q10H HOA Last Admin: 04/29/17 15:06 Dose: 100 mls/hr eMAR Start Stop Document 04/29/17 15:06 GMD (Rec: 04/29/17 15:06 GMD [id number]) Intravenous Solution Start Date 04/29/17 Start Time 15:06 Morphine Sulfate (Morphine) 2 mg IVP STAT STA Stop: 04/29/17 19:52 Morphine Sulfate (Morphine) 2 mg IVP STAT STA Stop: 04/29/17 19:54 Discontinued Medications Metronidazole (Flagyl) 500 mg PO STAT STA PRN Reason: Protocol Stop: 04/29/17 19:51 Morphine Sulfate (Morphine) 2 mg IVP STAT STA Stop: 04/29/17 16:24 Last Admin: 04/29/17 17:04 Dose: 2 mg MAR Pain Assessment Document 04/29/17 17:04 [email or web address] (Rec: 04/29/17 17:[email or web address] Pain Reassessment Is this a pain reassessment? No Sleep Is patient sleeping during reassessment? No Presence of Pain Presence of Pain Yes Pain Scale Used Pain Scale Used Numeric Location Pain Location Body Site Generalized Description Description Constant Intensity of Pain at present 7 Pain Behavior Facial Grimacing Aggravating Factors Changing Position Alleviating Factors/Management Position Change Techniques Alleviating Factors Medication IVP Administration Document 04/29/17 17:04 [email or web address] (Rec: 04/29/17 17:[email or web address] Charges for Administration # of IVP Administrations 1 Pantoprazole Sodium (Protonix Inj) 40 mg IVP ONCE STA Stop: 04/29/17 14:30 Last Admin: 04/29/17 15:06 Dose: 40 mg IVP Administration Document 04/29/17 15:06 GMD (Rec: 04/29/17 15:06 GMD [id number]) Charges for Administration # of IVP Administrations 1 Disposition/Present on Arrival - Present on Arrival Any Indicators Present on Arrival: Yes History of DVT/PE: No History of Uncontrolled Diabetes: Yes Urinary Catheter: No History of Decub. Ulcer: No History Surgical Site Infection Following: None - Disposition Have Diagnosis and Disposition been Completed?: Yes Diagnosis: Abdominal pain, GI bleed Disposition: HOSPITALIZED Disposition Time: 19:55 Patient Plan: Admission, Observation Patient Problems: Current Active Problems Problem Status Onset Abdominal pain Acute GI bleed Acute Condition: FAIR Referrals: Darek Ramirez DO [Primary Care Provider] - Follow up with primary Forms: [facility] [facility] ([place])
[2017-04-29] MEDS: Sodium Chloride 0.9% 1,000 ML IV SCH (15:06)
[2017-04-29 15:24] LABS: BASO # 0.01 K/mm3 (0.0-2.0); BASO % 0.1 % (0.0-3.0); EOS # 0.1 (0.0-0.7); EOS % 0.9 % (1.5-5.0); GRAN # 6.52 (1.4-6.5); HEMATOCRIT 35.5 % (36.0-48.0); LYMPH % 12.3 % (22.0-35.0); MEAN CORPUSCULAR HEMOGLOBIN 29.6 pg (25.0-35.0); MEAN CORPUSCULAR HGB CONC 33.2 g/dl (31.0-37.0); MEAN PLATELET VOLUME 9.8 fl (7.0-11.0); MONO # 0.5 (0.1-0.6); MONO % 5.7 % (1.0-6.0); RED CELL DISTRIBUTION WIDTH 13.4 % (11.5-14.5); WHITE BLOOD COUNT 8.1 10^3/ul (4.5-11.0)
[2017-04-29 15:26] LABS: URINE BILIRUBIN NEGATIVE (NEGATIVE); URINE BLOOD TRACE-INTACT (NEGATIVE); URINE GLUCOSE (UA) 250 mg/dL (NEGATIVE); URINE KETONE NEGATIVE (NEGATIVE); URINE LEUKOCYTE ESTERASE TRACE Leu/uL (NEGATIVE); URINE PROTEIN NEGATIVE mg/dL (<30 mg/dL); URINE UROBILINOGEN 0.2 E.U./dL (<1 E.U./dL)
--- NOTE | 2017-04-29 15:27 | RAD ---
HISTORY: weakness COMPARISON: Chest radiograph dated 04/27/2017 FINDINGS: LUNGS: Prominence of the pulmonary vasculature may be secondary to AP technique and/or pulmonary vascular congestion. PLEURA: No significant pleural effusion identified, no pneumothorax apparent. CARDIOVASCULAR: Cardiomediastinal silhouette stably prominent. OSSEOUS STRUCTURES: Unchanged. VISUALIZED UPPER ABDOMEN: Normal. OTHER FINDINGS: None. IMPRESSION: Prominence of the pulmonary vasculature may be secondary to AP technique and/or pulmonary vascular congestion. No focal consolidation or pleural effusion.
[2017-04-29 15:29] LABS: ALB/GLOB RATIO 1.1 (1.1-1.8); ALKALINE PHOSPHATASE 72 U/L (38-126); ALT/SGPT 26 U/L (7-56); AST/SGOT 15 U/L (14-36); BILIRUBIN,TOTAL 0.2 mg/dL (0.2-1.3); BLOOD UREA NITROGEN 18 mg/dL (7-21); CALCIUM 8.9 mg/dL (8.4-10.5); CARBON DIOXIDE 29 mmol/L (21-33); CHLORIDE 97 mmol/L (98-107); GFR AFRICAN-AMERICAN > 60; GLUCOSE,RANDOM 228 mg/dL (70-110); POTASSIUM 4.4 mmol/L (3.6-5.0); SODIUM 135 mmol/L (132-148); TOTAL PROTEIN 6.5 g/dL (5.8-8.3)
[2017-04-29 15:39] LABS: INR 1.19 (0.93-1.08); PARTIAL THROMBOPLASTIN TIME 27.5 Seconds (25.1-36.5); TROPONIN I < 0.01 ng/mL
[2017-04-29 15:42] LABS: URINE APPEARANCE CLEAR (CLEAR); URINE COLOR YELLOW (YELLOW)
[2017-04-29 15:52] LABS: URINE RBC 0 - 2 /hpf (0-2)
[2017-04-29] MEDS ORDERED: Morphine 2 mg/ml ISec IVP STA ×3 (16:23→19:53)
[2017-04-29 19:33] LABS: BASO # 0.02 K/mm3 (0.0-2.0); BASO % 0.3 % (0.0-3.0); EOS # 0.1 (0.0-0.7); EOS % 0.8 % (1.5-5.0); GRAN # 5.69 (1.4-6.5); HEMATOCRIT 32.7 % (36.0-48.0); LYMPH % 13.8 % (22.0-35.0); MEAN CELL VOLUME 88.6 fl (80.0-105.0); MEAN CORPUSCULAR HEMOGLOBIN 29.8 pg (25.0-35.0); MEAN CORPUSCULAR HGB CONC 33.6 g/dl (31.0-37.0); MEAN PLATELET VOLUME 9.8 fl (7.0-11.0); MONO # 0.6 (0.1-0.6); MONO % 8.1 % (1.0-6.0); RED CELL DISTRIBUTION WIDTH 13.4 % (11.5-14.5); WHITE BLOOD COUNT 7.4 10^3/ul (4.5-11.0)
[2017-04-30] MEDS: Sodium Chloride 0.9% 1,000 ML IV SCH (01:59)
--- NOTE | 2017-04-30 09:28 | CARD ---
APPROVED REPORT EKG Measurement Heart [id number] <Conclusion> Normal sinus rhythm LAD No change
[2017-04-30] MEDS ORDERED: Sodium Chloride 0.45% 1,000 ML IV SCH (10:30)
[2017-04-30] MEDS ORDERED: Iohexol 240 (50 ml) ONE (15:40)
[2017-04-30] MEDS: Insulin Reg-HIGH-Coverage SC SCH ×2 (17:15→22:25)
[2017-04-30] MEDS: Divalproex 500 mg ER (ONCE DAILY formulation) PO SCH ×2 (21:26→23:11)
--- NOTE | 2017-05-01 00:37 | HP ---
HISTORY OF PRESENT ILLNESS: She was recently discharged and later on that day, she told she me she strained over forcing her bowel movement then she had a little blood on her toilet tissue and she came back to the emergency room and they put her in the hospital under observation. She was recently having colitis. She was cleared by the Boarding Machine Operator earlier that day and now she is not feeling well in her lower abdomen and she has little bit of blood. She told me that from the ER, blood poured out, all of them witnessed, sudden left-sided abdominal pain. PAST MEDICAL HISTORY: Colitis, hypertension, pneumonias, diabetes, cellulitis in the past, diverticulitis, colitis, GERD, urinary tract infections, bipolar, depression, schizophrenia. She has had colonoscopies and endoscopies. FAMILY HISTORY: Hypertension. SOCIAL HISTORY: She still smokes cigarettes. No alcohol. No drugs. ALLERGIES: AMOXICILLIN, CLARITHROMYCIN, AND CLAVULANIC ACID. MEDICATION: She takes enalapril, Protonix, Cardizem, Levemir, Xanax and lots of other medications. REVIEW OF SYSTEMS: HEENT: No acute vision or hearing changes. CHEST: No chest pain. No shortness of breath. No palpitations. No coughing. ABDOMEN: There is some mild abdominal pain in lower abdomen. Not hungry. She had a little bit of blood in toilet tissue. No problems urinating. NECK: No pain. SKIN: For the most part is intact. No appreciable rashes. No headache or dizziness. Some increase in urination. She does bruise easily. Not depressed. PHYSICAL EXAMINATION: VITAL SIGNS: She has a 98.4 temperature, 58 pulse, 20 respiratory rate, 108/57 blood pressure, 99% O2 sat on room air. HEENT: She is presently nontoxic, alert, oriented x3, comfortable. Head is atraumatic and normocephalic. Pupils are equal and reactive to light and accommodation. Extraocular muscles are intact. Throat is moist. NECK: Supple. HEART: Regular rate. LUNGS: Decreased breath sounds. Clear to auscultation. ABDOMEN: Morbidly obese. Nontender. Positive bowel sounds, may be mild discomfort. No guarding. No rebound. No CVA tenderness. RECTAL: As I said, there is gross blood, dark red blood clots. Questionable vaginal discharge versus bleeding. BACK: No back pain. NEUROLOGIC: Cranial nerves II through XII grossly intact. She is talking well, grossly intact strength. Alert and oriented x3. LABORATORY DATA: She has multiple tests done. She has a urine that has trace leukocytes. Sodium 135, potassium 4.4, BUN 80, creatinine 0.9, GFR is greater than 60, sugar is 171, calcium is 8.9, total bilirubin is 0.2, AST is 15, ALT is 26, alkaline phosphatase is 72, lactate dehydrogenase 350, troponin I is less than 0.1, total protein 6.5, albumin is 3.4, and INR is 1.19. She has a 7.4 white count, 11 hemoglobin, 32.7 hematocrit with a 153 of platelets. She had a chest x-ray, which showed some vascular congestion. IMPRESSION AND PLAN: She was put on Lasix. She will be put back on her medications, she will be on Toradol for pain. There was a consult for GI, they saw her yesterday and said she will be discharged. We will see what they saying now. Check her labs tomorrow. For this abdominal discomfort and pain, I am going to do a CAT scan of the abdomen and pelvis and she is on observation with IV fluids and n.p.o. I will see which picture. She had a questionable GI bleed, abdominal pain, congestive heart failure, and constipation. She was just discharged for colitis, 24 hours ago and now she is back. We will see what the CAT scan says. Darek Ramirez DO MTDD
--- NOTE | 2017-05-01 07:22 | CT ---
EXAM: CT Abdomen and Pelvis Without Intravenous Contrast CLINICAL HISTORY: 56 years old, female; Pain; Abdominal pain; Generalized TECHNIQUE: Axial computed tomography images of the abdomen and pelvis without intravenous contrast. All CT scans at this facility use one or more dose reduction techniques, viz.: automated exposure control; ma/kV adjustment per patient size (including targeted exams where dose is matched to indication; i.e. head); or iterative reconstruction technique. 704 images are submitted.Limitations: Absence of IV contrast decreases sensitivity for detecting vascular and visceral injury and abnormality. Oral contrast was administered. Coronal and sagittal reformatted images were created and reviewed. COMPARISON: CT - ABD PELVIS W/O PO OR IV CONT 2017-04-27 03:39 FINDINGS: Lower thorax: Bibasilar nonspecific infiltrates are present, consistent with atelectasis or pneumonia. Cardiomegaly. Trace pericardial effusion. Mitral annular calcifications. Small hiatal hernia. ABDOMEN: Liver: Enlarged possible nodular liver. Gallbladder and bile ducts: Gallbladder distention seen on prior examination. Pancreas: Unremarkable. No ductal dilation. Spleen: Unremarkable. No splenomegaly. Adrenals: Unremarkable. No mass. Kidneys and ureters: Bilateral perinephric scarring may be a sequela of infection, inflammation or aging. No obstructing stones. No hydronephrosis. Stomach and bowel: There is fluid-filled splenic flexure and left colon with pattern of colonic infiltration representing acute colitis. Diverticulosis. No obstruction. Appendix: Normal appendix. PELVIS: Bladder: Partially decompressed bladder with bladder wall thickening. Correlation with urinalysis is recommended only if clinical cystitis is suspected. Reproductive: Uterus is seen. ABDOMEN and PELVIS: Intraperitoneal space: Unremarkable. No free air. No significant fluid collection. Bones/joints: No acute fracture. No dislocation. Soft tissues: Nonspecific history of back edema. Vasculature: The aorta demonstrates calcified plaque and is mildly ectatic but normal in caliber. No abdominal aortic aneurysm. Lymph nodes: Unremarkable. No enlarged lymph nodes. IMPRESSION: 1. There is fluid-filled splenic flexure and left colon with pattern of colonic infiltration representing acute colitis. 2. Nonspecific gallbladder distention.If clinically warranted, a right upper quadrant ultrasound and correlation with LFTs may be helpful for further assessment.
[2017-05-01 07:40] VITALS: BP 135/68; PULSE 78; RESP 20; TEMP 98; O2SAT 95
[2017-05-01 07:57] LABS: HEMATOCRIT 34.8 % (36.0-48.0); MEAN CELL VOLUME 88.3 fl (80.0-105.0); MEAN CORPUSCULAR HEMOGLOBIN 29.4 pg (25.0-35.0); MEAN CORPUSCULAR HGB CONC 33.3 g/dl (31.0-37.0); MEAN PLATELET VOLUME 9.1 fl (7.0-11.0); RED CELL DISTRIBUTION WIDTH 13.1 % (11.5-14.5); WHITE BLOOD COUNT 6.8 10^3/ul (4.5-11.0)
[2017-05-01 08:12] LABS: ALB/GLOB RATIO 1.1 (1.1-1.8); ALKALINE PHOSPHATASE 66 U/L (38-126); ALT/SGPT 25 U/L (7-56); AST/SGOT 14 U/L (14-36); BILIRUBIN,TOTAL 0.3 mg/dL (0.2-1.3); BLOOD UREA NITROGEN 16 mg/dL (7-21); CALCIUM 8.6 mg/dL (8.4-10.5); CARBON DIOXIDE 25 mmol/L (21-33); CHLORIDE 102 mmol/L (98-107); GFR AFRICAN-AMERICAN > 60; GLUCOSE,RANDOM 147 mg/dL (70-110); POTASSIUM 3.9 mmol/L (3.6-5.0); SODIUM 137 mmol/L (132-148); TOTAL PROTEIN 6.1 g/dL (5.8-8.3)
[2017-05-01] MEDS: Insulin Reg-HIGH-Coverage SC SCH (09:19)
--- NOTE | 2017-05-01 09:59 | CP.PCM.CON ---
<Raquel Rose - Last Filed: 05/01/17 10:01> History of Present Illness - History of Present Illness History of Present Illness: GI Fellow PGY4 Consult This a 56 year old female with a past medical of hypertension, DM II, and colitis/diverticulitis who presents with complaints of rectal bleeding. Pt was just discharged from the hospital with diagnosis of colitis, diarrhea, and rectal bleeding on po abx cipro and flagyl. During her prior admission her symptoms had improved and rectal bleeding had resolved with stable H/H and vitals. Pt says when she went home she experienced 3 episodes of bright red blood per rectum and attributes it to straining and being constipated. Since this hospital stay, pt denies any further episodes of diarrhea,fever, chills, or rectal bleeding. Pt reports last colonoscopy was 4 years ago that showed colitis and inflammation but denies any diagnosis of or treatment of IBD. Pt says she feels better and requesting to go home. ROS: A 12pt ROS was negative except as above PSHX: Denies FHx: High blood pressure PMHX: Diverticulitis, hypertension, DM II SHx: Every day smoker, denies alcohol and illicit drugs Past Patient History - Infectious Disease Hx of Infectious Diseases: None - Tetanus Immunizations Tetanus Immunization: Unknown - Past Medical History & Family History Past Medical History?: Yes - Past Social History Smoking Status: Heavy Smoker > 10 Cigarettes Daily - CARDIAC Hx Cardiac Disorders: Yes Hx Hypertension: Yes - PULMONARY Hx Respiratory Disorders: Yes Hx Pneumonia: Yes - NEUROLOGICAL Hx Neurological Disorder: No - HEENT Hx HEENT Problems: No - RENAL Hx Chronic Kidney Disease: No - ENDOCRINE/METABOLIC Hx Endocrine Disorders: Yes Hx Diabetes Mellitus Type 2: Yes - HEMATOLOGICAL/ONCOLOGICAL Hx Blood Disorders: No - INTEGUMENTARY Hx Dermatological Problems: Yes Other/Comment: cellulitis to the lower extremities since 08/23, REFUSING TO HAVE LEGS ASSESSED TODAY - MUSCULOSKELETAL/RHEUMATOLOGICAL Hx Musculoskeletal Disorders: No Hx Falls: No - GASTROINTESTINAL Hx Gastrointestinal Disorders: Yes Hx Diverticulitis: Yes Hx Gastroesophageal Reflux: Yes Other/Comment: colitis - GENITOURINARY/GYNECOLOGICAL Hx Genitourinary Disorders: Yes Hx Urinary Tract Infection: Yes - PSYCHIATRIC Hx Psychophysiologic Disorder: Yes Hx Anxiety: Yes Hx Bipolar Disorder: Yes Hx Depression: Yes Hx Schizophrenia: Yes Hx Substance Use: No - SURGICAL HISTORY Hx Surgeries: Yes (TONSILLECTOMY) Hx Cardiac Catheterization: Yes Other/Comment: Colonoscopy. Endoscopy - ANESTHESIA Hx Anesthesia: Yes Hx Anesthesia Reactions: No Hx Malignant Hyperthermia: No Meds Allergies/Adverse Reactions: Allergies Allergy/AdvReac Type Severity Reaction Status Date / Time amoxicillin [From Augmentin] Allergy NAUSEA Verified 04/29/17 17:37 clarithromycin [From Biaxin] Allergy RASH Verified 04/29/17 17:37 clavulanic acid Allergy NAUSEA Verified 04/29/17 17:37 [From Augmentin] - Medications Medications: Current Medications Alprazolam (Xanax) 1 mg PO TID PRN; Protocol PRN Reason: Anxiety Last Admin: 04/30/17 19:35 Dose: 1 mg Alprazolam (Xanax) 1 mg PO TID HOA PRN Reason: Protocol Last Admin: 04/30/17 15:46 Dose: Not Given Amitriptyline HCl (Elavil) 10 mg PO HS HOA Last Admin: 04/30/17 23:12 Dose: Not Given Divalproex Sodium (Depakote Er(Once Daily)) 1,000 mg PO HS HOA Last Admin: 04/30/17 23:11 Dose: Not Given Furosemide (Lasix) 40 mg PO DAILY HOA Sodium Chloride (Sodium Chloride 0.45%) 1,000 mls @ 40 mls/hr IV .Q24H HOA Last Admin: 04/30/17 15:45 Dose: 40 mls/hr Insulin Human Regular (Humulin R High) 0 units SC ACHS HOA PRN Reason: Protocol Last Admin: 05/01/17 09:19 Dose: Not Given Ketorolac Tromethamine (Toradol) 30 mg IVP Q6H PRN PRN Reason: Pain, moderate (4-7) Last Admin: 05/01/17 07:11 Dose: 30 mg Pantoprazole Sodium (Protonix Ec Tab) 40 mg PO DAILY HOA Ziprasidone (Geodon Cap) 80 mg PO HS HOA PRN Reason: Protocol Last Admin: 04/30/17 23:11 Dose: Not Given Physical Exam - Constitutional Appears: Non-toxic, No Acute Distress - Head Exam Head Exam: ATRAUMATIC, NORMAL INSPECTION, NORMOCEPHALIC - Eye Exam Eye Exam: EOMI, Normal appearance, PERRL Pupil Exam: PERRL - ENT Exam ENT Exam: Mucous Membranes Moist, Normal Exam - Neck Exam Neck exam: Positive for: Normal Inspection - Respiratory Exam Respiratory Exam: Clear to Auscultation Bilateral, NORMAL BREATHING PATTERN - Cardiovascular Exam Cardiovascular Exam: REGULAR RHYTHM, RRR - GI/Abdominal Exam GI & Abdominal Exam: Normal Bowel Sounds, Soft, Tenderness. absent: Distended, Guarding, Organomegaly - Rectal Exam Rectal Exam: Deferred - Extremities Exam Extremities exam: Positive for: full ROM, normal inspection, pedal edema - Neurological Exam Neurological exam: Alert, Oriented x3 - Psychiatric Exam Psychiatric exam: Normal Affect, Normal Mood - Skin Skin Exam: Dry, Intact, Normal Color, Warm Results - Vital Signs Recent Vital Signs: Last Vital Signs Temp 98.0 F 05/01/17 07:39 Pulse 78 05/01/17 07:39 Resp 20 05/01/17 07:39 BP 135/68 05/01/17 07:39 Pulse Ox 95 05/01/17 07:39 - Labs Result Diagrams: 05/01/17 07:00 05/01/17 07:00 Labs: Laboratory Results - last 24 hr 04/30/17 04/30/17 04/30/17 11:35 15:57 21:43 WBC RBC Hgb Hct MCV MCH MCHC RDW Plt Count MPV Sodium Potassium Chloride Carbon Dioxide Anion Gap BUN Creatinine Est GFR ( Amer) Est GFR (Non-Af Amer) POC Glucose (mg/dL) 233 H 207 H 136 H Random Glucose Calcium Total Bilirubin AST ALT Alkaline Phosphatase Total Protein Albumin Globulin Albumin/Globulin Ratio 05/01/17 05/01/17 05/01/17 07:00 07:00 07:56 WBC 6.8 RBC 3.94 Hgb 11.6 L Hct 34.8 L MCV 88.3 MCH 29.4 MCHC 33.3 RDW 13.1 Plt Count 188 MPV 9.1 Sodium 137 Potassium 3.9 Chloride 102 Carbon Dioxide 25 Anion Gap 13 BUN 16 Creatinine 0.8 Est GFR ( Amer) > 60 Est GFR (Non-Af Amer) > 60 POC Glucose (mg/dL) 147 H Random Glucose 147 H Calcium 8.6 Total Bilirubin 0.3 AST 14 ALT 25 Alkaline Phosphatase 66 Total Protein 6.1 Albumin 3.1 Globulin 2.9 Albumin/Globulin Ratio 1.1 Assessment & Plan - Assessment and Plan (Free Text) Assessment: This is a 56yF presenting with rectal bleeding. 1. Rectal bleeding-resolved 2. Constipation 3. Colitis Plan: -Continue supportive care -No further GI bleeding, Hgb stable, vitals stable -Rectal bleeding maybe secondary to colitis and underlying IBD -Discussed with patient for possible continued rectal bleeding due to infection and/or IBD -Recommend continuing abx from prior discharge -CT imaging reviewed with left sided colitis and right sided constipation with stool burden -Will start on aggressive bowel regimen with miralax bid -Pt will need outpt colonoscopy in 6-8 weeks to r/o underlying etiology -Per GI perspective, pt okay for discharge home <Jules Sarmiento - Last Filed: 05/01/17 10:38> Meds - Medications Medications: Current Medications Alprazolam (Xanax) 1 mg PO TID PRN; Protocol PRN Reason: Anxiety Last Admin: 04/30/17 19:35 Dose: 1 mg Alprazolam (Xanax) 1 mg PO TID HOA PRN Reason: Protocol Last Admin: 05/01/17 09:55 Dose: 1 mg Amitriptyline HCl (Elavil) 10 mg PO HS HOA Last Admin: 04/30/17 23:12 Dose: Not Given Divalproex Sodium (Depakote Er(Once Daily)) 1,000 mg PO HS HOA Last Admin: 04/30/17 23:11 Dose: Not Given Furosemide (Lasix) 40 mg PO DAILY [facility] Last Admin: 05/01/17 09:55 Dose: 40 mg Sodium Chloride (Sodium Chloride 0.45%) 1,000 mls @ 40 mls/hr IV .Q24H HOA Last Admin: 04/30/17 15:45 Dose: 40 mls/hr Insulin Human Regular (Humulin R High) 0 units SC ACHS [facility]O PRN Reason: Protocol Last Admin: 05/01/17 09:19 Dose: Not Given Ketorolac Tromethamine (Toradol) 30 mg IVP Q6H PRN PRN Reason: Pain, moderate (4-7) Last Admin: 05/01/17 07:11 Dose: 30 mg Pantoprazole Sodium (Protonix Ec Tab) 40 mg PO DAILY HOA Last Admin: 05/01/17 09:56 Dose: 40 mg Polyethylene Glycol (Miralax) 17 gm PO BID HOA Ziprasidone (Geodon Cap) 80 mg PO HS HOA PRN Reason: Protocol Last Admin: 04/30/17 23:11 Dose: Not Given Results - Vital Signs Recent Vital Signs: Last Vital Signs Temp 98.0 F 05/01/17 07:39 Pulse 78 05/01/17 07:39 Resp 20 05/01/17 07:39 BP 135/68 05/01/17 09:55 Pulse Ox 95 05/01/17 07:39 - Labs Result Diagrams: 05/01/17 07:00 05/01/17 07:00 Labs: Laboratory Results - last 24 hr 04/30/17 04/30/17 04/30/17 11:35 15:57 21:43 WBC RBC Hgb Hct MCV MCH MCHC RDW Plt Count MPV Sodium Potassium Chloride Carbon Dioxide Anion Gap BUN Creatinine Est GFR ( Amer) Est GFR (Non-Af Amer) POC Glucose (mg/dL) 233 H 207 H 136 H Random Glucose Calcium Total Bilirubin AST ALT Alkaline Phosphatase Total Protein Albumin Globulin Albumin/Globulin Ratio 05/01/17 05/01/17 05/01/17 07:00 07:00 07:56 WBC 6.8 RBC 3.94 Hgb 11.6 L Hct 34.8 L MCV 88.3 MCH 29.4 MCHC 33.3 RDW 13.1 Plt Count 188 MPV 9.1 Sodium 137 Potassium 3.9 Chloride 102 Carbon Dioxide 25 Anion Gap 13 BUN 16 Creatinine 0.8 Est GFR ( Amer) > 60 Est GFR (Non-Af Amer) > 60 POC Glucose (mg/dL) 147 H Random Glucose 147 H Calcium 8.6 Total Bilirubin 0.3 AST 14 ALT 25 Alkaline Phosphatase 66 Total Protein 6.1 Albumin 3.1 Globulin 2.9 Albumin/Globulin Ratio 1.1 Attending/Attestation - Attestation I have personally seen and examined this patient.: Yes I have fully participated in the care of the patient.: Yes I have reviewed all pertinent clinical information: Yes Notes (Text): 05/01/17 10:37 56 year old female admitted with rectal bleeding and evidence of left sided colitis. Bleeding is self limited. She has associated right sided constipation. Suspect she may have left sided uc. Would recommend colonoscopy outpatient. Continue abx for now. Stool was negative for c. diff. Ok to discharge. Advance diet.
[2017-05-01] MEDS ORDERED: Pantoprazole 40 mg EC Tab PO SCH (10:00)
[2017-05-01] MEDS ORDERED: POLYETHYLENE GLYCOL 3350 17 GM/Dose PACKET PO SCH (10:15)
--- NOTE | 2017-05-02 02:59 | DS ---
HISTORY OF PRESENT ILLNESS: She was seen by Gastroenterology today and she was able to be discharged. She is on observation status for 2 days. She had a GI bleed, CHF, morbid obesity, constipation. She is going home on her medications; Depakote, Elavil, Geodon, Lasix, MiraLax, Protonix, Toradol and Xanax. PHYSICAL EXAMINATION: VITAL SIGNS: She has a 98 temperature, 78 pulse, 135/68 blood pressure, 20 respiratory rate, 95% O2 sat on room air. HEENT: Head is atraumatic, normocephalic. HEART: Regular rate. LUNGS: Clear to auscultation. ABDOMEN: Morbidly obese, nontender. Positive bowel sounds. She is hungry, she is eating. She did well. EXTREMITIES: No edema. LABORATORY DATA: She has a 6.8 white count, 11.6 hemoglobin, 34.8 hematocrit with 188 platelets. She has a 137 sodium, potassium 3.9, BUN 16, creatinine 0.8. GFR is greater than 60. Sugar is 147, calcium is 8.6, total bilirubin is 0.3, AST is 14, ALT is 25, alkaline phosphatase is 66, and total protein 6.1. She was seen by the security officer supervisor, I discussed with him this morning, she can be discharged today. She had a CAT scan of the abdomen and pelvis and it showed fluid-filled splenic flexure, left colon with de la paz-colonic infiltration representing acute colitis, but she is eating now. No pain. As per GI, we will follow up in the outpatient with him. Darek Ramirez DO
== END 2017-05-01 12:07 | disposition home or self-care (01) ==
LOC: ED 13:53 → ERH 19:52 → 3RNO 22:25
PROVIDERS: ADMIT Family Medicine; ATTEND Family Medicine
DX: K51.50 Left sided colitis without complications (principal); K59.00 Constipation, unspecified; I50.9 Heart failure, unspecified; I11.0 Hypertensive heart disease with heart failure; E11.9 Type 2 diabetes mellitus without complications; E66.01 Morbid (severe) obesity due to excess calories; Z68.42 Body mass index [BMI] 45.0-49.9, adult; K21.9 Gastro-esophageal reflux disease without esophagitis; F20.9 Schizophrenia, unspecified; F17.210 Nicotine dependence, cigarettes, uncomplicated; Z79.4 Long term (current) use of insulin; Z87.01 Personal history of pneumonia (recurrent); Z87.440 Personal history of urinary (tract) infections
CPT/HCPCS: 36415; 71010; 74176; 80053; 81001; 82550; 82948; 83615; 84484; 85025; 85027; 85610; 85730; 87086; 93005; 96374; 96375; 96376; 99284; C9113; G0378; J1885; J2270; J7030; J7040; Q9966

== ENCOUNTER 2017-06-13 08:02 | Inpatient (IN) | payer MEDICAID ==
[2017-06-13 08:05] VITALS: BMI 50.3
--- NOTE | 2017-06-13 08:28 | ED PDOC ---
Arrival/HPI - General Chief Complaint: Chest Pain Time Seen by Provider: 06/13/17 08:07 Historian: Patient - History of Present Illness Narrative History of Present Illness (Text): 06/13/17 08:20 Anna Marie Desir is a 56 year old female, whose past medical history includes hypertension, diabetes, and depression, who presents to the emergency department via EMS complaining of feeling confused since this morning. Patient reports she is anxious and took her medication this morning for her anxiety but is requesting more. Additionally, patient states feeling heaviness and pressure on her chest and being possibly suicidal with no plan. No other complaints were made. PMD: Dr. Ramirez Time/Duration: Prior to Arrival Symptom Onset: Sudden Symptom Course: Unchanged Quality: Pressure Context: Home Past Medical History - Provider Review Nursing Documentation Reviewed: Yes - Past History Past History: Non-Contributing - Infectious Disease Hx of Infectious Diseases: None - Tetanus Immunization Tetanus Immunization: Unknown - Past Medical History Past Medical History: Non-Contributing - Cardiac Hx Cardiac Disorders: Yes Hx Hypertension: Yes - Pulmonary Hx Respiratory Disorders: Yes Hx Pneumonia: Yes - Neurological Hx Neurological Disorder: No - HEENT Hx HEENT Disorder: No - Renal Hx Renal Disorder: No - Endocrine/Metabolic Hx Endocrine Disorders: Yes Hx Diabetes Mellitus Type 2: Yes - Hematological/Oncological Hx Blood Disorders: No - Integumentary Hx Dermatological Disorder: Yes Other/Comment: cellulitis to the lower extremities since 08/23, REFUSING TO HAVE LEGS ASSESSED TODAY - Musculoskeletal/Rheumatological Hx Musculoskeletal Disorders: No Hx Falls: No - Gastrointestinal Hx Gastrointestinal Disorders: Yes Hx Diverticulitis: Yes Hx Gastroesophageal Reflux: Yes Other/Comment: colitis - Genitourinary/Gynecological Hx Genitourinary Disorders: Yes Hx Urinary Tract Infection: Yes - Psychiatric Hx Psychophysiologic Disorder: Yes Hx Anxiety: Yes Hx Bipolar Disorder: Yes Hx Depression: Yes Hx Schizophrenia: Yes Hx Substance Use: No - Past Surgical History Past Surgical History: Non-Contributing - Surgical History Hx Cardiac Catheterization: Yes Other/Comment: Colonoscopy. Endoscopy - Anesthesia Hx Anesthesia: Yes Hx Anesthesia Reactions: No Hx Malignant Hyperthermia: No - Suicidal Assessment Feels Threatened In Home Enviroment: No Family/Social History - Physician Review Nursing Documentation Reviewed: Yes Family/Social History: Unknown Family HX Smoking Status: Heavy Smoker > 10 Cigarettes Daily Hx Alcohol Use: No Hx Substance Use: No Hx Substance Use Treatment: No Allergies/Home Meds Allergies/Adverse Reactions: Allergies amoxicillin [From Augmentin] Allergy (Verified 04/29/17 17:37) NAUSEA clarithromycin [From Biaxin] Allergy (Verified 04/29/17 17:37) RASH clavulanic acid [From Augmentin] Allergy (Verified 04/29/17 17:37) NAUSEA Home Medications: Home Meds Medication Instructions Recorded Confirmed Enalapril Maleate 10 mg PO DAILY 01/09/15 04/29/17 Pantoprazole Sodium [Protonix] 40 mg PO DAILY 08/25/16 04/29/17 [id number] CD [Cardizem CD] 340 mg PO DAILY 08/25/16 04/29/17 Insulin Detemir [Levemir] 0 units SC HS 09/22/16 04/29/17 ALPRAZolam [Xanax] 1 mg PO TID 12/10/16 04/29/17 Review of Systems - Physician Review All systems were reviewed & negative as marked: Yes - Review of Systems Respiratory: absent: SOB Cardiovascular: Other (chest pressure and heaviness) Neurological: Other (confused). absent: Headache Psychiatric: Anxiety, Suicidal Ideation Physical Exam Vital Signs Reviewed: Yes Vital Signs Temp Pulse Resp BP Pulse Ox 06/13/17 07:57 98.9 F 115 H 14 124/89 95 Temperature: Afebrile Blood Pressure: Normal Pulse: Tachycardic Respiratory Rate: Normal Appearance: Positive for: Well-Appearing, Non-Toxic, Uncomfortable, Other (obese ) Pain Distress: None Mental Status: Positive for: Alert and Oriented X 3 - Systems Exam Head: Present: Atraumatic, Normocephalic Pupils: Present: PERRL Extroacular Muscles: Present: EOMI Conjunctiva: Present: Normal Nose (External): Present: Atraumatic Neck: Present: Normal Range of Motion Respiratory/Chest: Present: Clear to Auscultation, Good Air Exchange. No: Respiratory Distress, Accessory Muscle Use, Wheezes, Retracting, Rhonchi Cardiovascular: Present: Regular Rate and Rhythm, Normal S1, S2. No: Murmurs Abdomen: Present: Normal Bowel Sounds. No: Tenderness, Distention, Peritoneal Signs, Rebound, Guarding Upper Extremity: Present: Normal Inspection, Normal ROM, NORMAL PULSES. No: Cyanosis, Edema Lower Extremity: Present: Normal Inspection, NORMAL PULSES, Normal ROM. No: Edema Neurological: Present: GCS=15, CN II-XII Intact, Speech Normal Skin: Present: Warm, Dry, Normal Color. No: Rashes Psychiatric: Present: Alert, Oriented x 3, Normal Insight, Normal Concentration , Anxious, Suicidal Ideation. No: Normal Affect (flat affect) Medical Decision Making ED Course and Treatment: 06/13/17 Impression: 56 year old female with anxiousness, flat affect, and possible suicidal ideation. Plan: -- Chest X-ray -- Labs -- Urinalysis -- Reassess and disposition Progress Notes: - Lab Interpretations Lab Results: 06/13/17 08:58 06/13/17 08:58 Lab Results 06/13/17 11:00: Urine Opiates Screen Negative, Urine Methadone Screen Negative, Ur Barbiturates Screen Negative, Ur Phencyclidine Scrn Negative, Ur Amphetamines Screen Negative, U Benzodiazepines Scrn Positive, U Oth Cocaine Metabols Negative, U Cannabinoids Screen Negative 06/13/17 11:00: Urine Color Yellow, Urine Appearance Clear, Urine pH 6.0, Ur Specific [place] >= 1.030, Urine Protein 30 H, Urine Glucose (UA) Negative, Urine Ketones 40 H, Urine Blood Negative, Urine Nitrate Negative, Urine Bilirubin Small H, Urine Urobilinogen 0.2, Ur Leukocyte Esterase Moderate H, Urine RBC Negative, Urine WBC 5 - 10, Ur Epithelial Cells Many, Urine Bacteria Many 06/13/17 08:58: Alcohol, Quantitative < 10 06/13/17 08:58: Salicylates 2, Acetaminophen < 10.0 L 06/13/17 08:58: Sodium 140, Potassium 4.5, Chloride 104, Carbon Dioxide 20 L, Anion Gap 20, BUN 16, Creatinine 0.8, Est GFR ( Amer) > 60, Est GFR (Non- Af Amer) > 60, Random Glucose 248 H, Calcium 10.2, Total Bilirubin 0.5, AST 22, ALT 31, Alkaline Phosphatase 84, Troponin I < 0.01, Total Protein 7.5, Albumin 4.3, Globulin 3.2, Albumin/Globulin Ratio 1.3 06/13/17 08:58: WBC 9.1 D, RBC 4.93, Hgb 14.7 D, Hct 43.0, MCV 87.2, MCH 29.8 , MCHC 34.2, RDW 13.5, Plt Count 279, MPV 9.3, Gran % 71.7 H, Lymph % (Auto) 23.3, [place] % (Auto) 4.4, Eos % (Auto) 0.3 L, Baso % (Auto) 0.3, Gran # 6.55 H, Lymph # (Auto) 2.1, [place] # (Auto) 0.4, Eos # (Auto) 0.0, Baso # (Auto) 0.03 I have reviewed the lab results: Yes - RAD Interpretation Radiology Orders: 06/13/17 08:28 CHEST PORTABLE [RAD] Stat Log Peeler: Radiologist - Scribe Statement The provider has reviewed the documentation as recorded by the Prachiibe Mishel Abbott Provider Scribe Attestation: All medical record entries made by the Scribe were at my direction and personally dictated by me. I have reviewed the chart and agree that the record accurately reflects my personal performance of the history, physical exam, medical decision making, and the department course for this patient. I have also personally directed, reviewed, and agree with the discharge instructions and disposition. Disposition/Present on Arrival - Present on Arrival Any Indicators Present on Arrival: No History of DVT/PE: No History of Uncontrolled Diabetes: No Urinary Catheter: No History of Decub. Ulcer: No History Surgical Site Infection Following: None - Disposition Have Diagnosis and Disposition been Completed?: Yes Diagnosis: Depression Disposition: HOSPITALIZED Disposition Time: 13:35 Patient Plan: Admission Condition: STABLE Referrals: Darek Ramirez DO [Primary Care Provider] - Follow up with primary Forms: [employer] (Slovak)
[2017-06-13 09:11] LABS: BASO # 0.03 K/mm3 (0.0-2.0); BASO % 0.3 % (0.0-3.0); EOS % 0.3 % (1.5-5.0); GRAN # 6.55 (1.4-6.5); GRAN % 71.7 % (50.0-68.0); HEMOGLOBIN 14.7 g/dL (12.0-16.0); LYMPH # 2.1 (1.2-3.4); LYMPH % 23.3 % (22.0-35.0); MEAN CELL VOLUME 87.2 fl (80.0-105.0); MEAN CORPUSCULAR HEMOGLOBIN 29.8 pg (25.0-35.0); MEAN CORPUSCULAR HGB CONC 34.2 g/dl (31.0-37.0); MEAN PLATELET VOLUME 9.3 fl (7.0-11.0); MONO # 0.4 (0.1-0.6); MONO % 4.4 % (1.0-6.0); RBC 4.93 10^6/uL (3.5-6.1); RED CELL DISTRIBUTION WIDTH 13.5 % (11.5-14.5); WHITE BLOOD COUNT 9.1 10^3/ul (4.5-11.0)
[2017-06-13 09:24] LABS: ALB/GLOB RATIO 1.3 (1.1-1.8); ALBUMIN 4.3 g/dL (3.0-4.8); ALT/SGPT 31 U/L (7-56); AST/SGOT 22 U/L (14-36); BLOOD UREA NITROGEN 16 mg/dL (7-21); CALCIUM 10.2 mg/dL (8.4-10.5); GFR AFRICAN-AMERICAN > 60; GFR NON-AFRICAN AMERICAN > 60
[2017-06-13 09:28] LABS: ACETAMINOPHEN < 10.0 ug/ml (10.0-20.0); SALICYLATE 2 mg/dL (2.0-20.0)
[2017-06-13 09:35] LABS: TROPONIN I < 0.01 ng/mL
[2017-06-13 11:27] LABS: URINE BILIRUBIN SMALL (NEGATIVE); URINE BLOOD NEGATIVE (NEGATIVE); URINE GLUCOSE (UA) NEGATIVE (NEGATIVE); URINE LEUKOCYTE ESTERASE MODERATE Leu/uL (NEGATIVE); URINE NITRATE NEGATIVE (NEGATIVE); URINE PROTEIN 30 mg/dL (<30 mg/dL); URINE UROBILINOGEN 0.2 E.U./dL (<1 E.U./dL)
[2017-06-13 11:30] LABS: URINE APPEARANCE CLEAR (CLEAR); URINE COLOR YELLOW (YELLOW)
[2017-06-13 11:40] LABS: URINE BACTERIA MANY (NEG); URINE EPITHELIAL CELLS MANY /hpf (0-5); URINE RBC NEGATIVE /hpf (0-2)
[2017-06-13 11:44] LABS: BARBITURATES, UR NEGATIVE (NEGATIVE); OPIATES, UR NEGATIVE (NEGATIVE); PHENCYCLIDINE, UR NEGATIVE (NEGATIVE)
[2017-06-13 11:46] LABS: BENZODIAZEPINES, UR POSITIVE (NEGATIVE)
--- NOTE | 2017-06-13 13:17 | RAD ---
HISTORY: chest pain COMPARISON: 04/29/2017 FINDINGS: LUNGS: No active pulmonary disease. PLEURA: No significant pleural effusion identified, no pneumothorax apparent. CARDIOVASCULAR: Moderate cardiomegaly OSSEOUS STRUCTURES: No significant abnormalities. VISUALIZED UPPER ABDOMEN: Normal. OTHER FINDINGS: None. IMPRESSION: No active disease.
[2017-06-13 14:11] VITALS: O2SAT 96
[2017-06-13] MEDS ORDERED: Magnesium Hydroxide Susp 30 ml UD PO PRN (14:55)
[2017-06-13] MEDS ORDERED: Alum-Mag Hydrox-Simethicone Susp (30 mL) PO PRN (14:55)
[2017-06-13] MEDS ORDERED: Insulin Reg-MEDIUM-Coverage SC SCH (16:30)
[2017-06-13] MEDS ORDERED: Insulin Human NPH/Reg 70/30 Vial(3 ml) SC SCH (16:30)
--- NOTE | 2017-06-13 17:10 | PCM.BM ---
Treatment Plan Problems - Problems identified on initial assessmt altered thought process Date Initiated: 06/13/17 Time Initiated: 17:00 Assessment reference: NA Status: Active Priority: 1 ineffective coping skills Date Initiated: 06/13/17 Time Initiated: 17:00 Assessment reference: NA Status: Active Priority: 2 altered sleep Date Initiated: 06/13/17 Time Initiated: 17:00 Assessment reference: NA Status: Active Priority: 3 Treatment assets and liabiliti Patient Assests: adapts well, cooperative, ADL independent, negotiates basic needs Patient Liabilities: live alone, poor support system - Milieu Protocol Maintain good personal hygiene: daily Encourage regular showers, daily Remind patient to perform daily oral care, daily Assist patient to perform ADL's, every shift Assist patient to perform ADL's Maintain personal safety: every shift Educate patient to report safety concerns to staff, every shift Monitor environment for contraband/sharps Medication safety: Monitor for expected outcome, potential side effects: every shift, Assess barriers to learning: every shift, Assess readiness for medication education: every shift Discharge/Continuing Care - Education Needs Education Needs: Patient Medication, Patient Diagnosis/Disease Process, Patient Coping Skills, Patient Community resources, Patient Activities of Daily Living, Patient Pain, Patient Nutrition, Patient Uses of Medical Equipment, Patient Health Practices/Safety, Patient Personal Hygiene/Grooming, Patient Aftercare Safety Plan - Discharge Discharge Criteria: Tolerates medication w/o severe side effects, Free of Suicidal thoughts, Free of paranoid thoughts, Free of agitation, Normal sleep pattern, Ability to care for self, No longer exhibiting s/s of withdrawal, Reduction of target symptoms Discharge to:: Home
[2017-06-13] MEDS: Insulin Reg-LOW-Coverage SC SCH ×2 (17:13→22:01)
--- NOTE | 2017-06-13 17:26 | PCM.BM ---
<Mansi Abdi - Last Filed: 06/13/17 17:26> Treatment Plan Problems - Problems identified on initial assessmt altered thought process Date Initiated: 06/13/17 Time Initiated: 17:00 Assessment reference: NA Status: Active Priority: 1 ineffective coping skills Date Initiated: 06/13/17 Time Initiated: 17:00 Assessment reference: NA Status: Active Priority: 2 altered sleep Date Initiated: 06/13/17 Time Initiated: 17:00 Assessment reference: NA Status: Active Priority: 3 Treatment assets and liabiliti Patient Assests: adapts well, cooperative, ADL independent, negotiates basic needs Patient Liabilities: live alone, poor support system - Milieu Protocol Maintain good personal hygiene: daily Encourage regular showers, daily Remind patient to perform daily oral care, daily Assist patient to perform ADL's, every shift Assist patient to perform ADL's Maintain personal safety: every shift Educate patient to report safety concerns to staff, every shift Monitor environment for contraband/sharps Medication safety: Monitor for expected outcome, potential side effects: every shift, Assess barriers to learning: every shift, Assess readiness for medication education: every shift Discharge/Continuing Care - Education Needs Education Needs: Patient Medication, Patient Diagnosis/Disease Process, Patient Coping Skills, Patient Community resources, Patient Activities of Daily Living, Patient Pain, Patient Nutrition, Patient Uses of Medical Equipment, Patient Health Practices/Safety, Patient Personal Hygiene/Grooming, Patient Aftercare Safety Plan - Discharge Discharge Criteria: Tolerates medication w/o severe side effects, Free of Suicidal thoughts, Free of paranoid thoughts, Free of agitation, Normal sleep pattern, Ability to care for self, No longer exhibiting s/s of withdrawal, Reduction of target symptoms Discharge to:: Home <Eladia Valentine - Last Filed: 06/14/17 13:54> - Diagnosis (1) Schizoaffective disorder Status: Acute Interventions: 06/14/17 13:54 Psychoeducation/psychotherapy Psychopharmacology/adjustment of medications as needed/ monitoring possible side effects Evaluate pt on daily basis Compliance with medications and follow up appointments Long acting medication if pt is noncompliant with pill form Suicide and homicide risk assessment and prevention, coping strategies, safety plan Relapse prevention Reduction of symptoms Improve functional status Possible assertive community treatment Cognitive behavioral therapy Family involvement Possible social skill training as outpatient <Joann Spann - Last Filed: 06/15/17 12:21> Family Contact - Outside Agency [facility] Care involvment: Not involved Agency contact name: [facility] Agency contact number: [phone] <Alida Meeks - Last Filed: 06/15/17 15:43> Family Contact Family involvement: Family/SO is involved Family contact: Patient agrees to contact Family contact name: Nieves Zendejas(sister) Family contacted how many times per week?: 2
--- NOTE | 2017-06-13 17:58 | CARD ---
APPROVED REPORT EKG Measurement Heart [id number] <Conclusion> Sinus tachycardia Left axis deviation Abnormal ECG
[2017-06-13] MEDS: Divalproex 500 mg DR(BID formulation) PO SCH (21:16)
[2017-06-13] MEDS ORDERED: Insulin Detemir 100 units/ml Vial (Levemir) SC SCH (22:00)
--- NOTE | 2017-06-14 02:22 | CON ---
ENDOCRINOLOGY CONSULTATION DATE: HISTORY OF PRESENT ILLNESS: This is a 56-year-old female with known history of type 2 insulin-requiring diabetes now admitted for psychiatric treatment for further closer management of major depression and is also being referred now for diabetic evaluation and management. PAST MEDICAL HISTORY: History of type 2 insulin-requiring diabetes, on a premixed insulin regimen using Humulin 70/30 given as 44 units subcutaneous b.i.d. with Levemir given as a variable dose at bedtime. FAMILY HISTORY: Positive for diabetes and hypertension. SOCIAL HISTORY: The patient has supportive family. No known substance use. REVIEW OF SYSTEMS: As mentioned above. Admits to generalized body weakness with episodic bouts of dizziness and lightheadedness, worse on the day of admission. No chest pains, palpitations, or PND. Her oral intake has been variable with nausea, dyspepsia, and habitual constipation. PHYSICAL EXAMINATION: GENERAL: This is an average-built female in no apparent distress. VITAL SIGNS: Blood pressure of 130/80; pulse of 70 beats per minute, regular; temperature 98; respirations 20; height is 5 feet 1 inch; weight is 266 pounds. HEENT: Head normocephalic. Eyes anicteric with pink conjunctivae. Funduscopy not possible at this time. Ears, nose and throat are otherwise normal. NECK: Supple. Thyroid gland is normal in size. No carotid bruits or cervical adenopathy. CARDIOPULMONARY: Adynamic precordium. S1, S2 is rapid and regular. LUNGS: Clear to auscultation. ABDOMEN: Flat, soft with positive bowel sounds. EXTREMITIES: No peripheral edema. Pulses are +2 bilaterally. LABORATORY DATA: Her chemistry showed BUN of 16, sodium 140, potassium 4.5, chloride 104, CO2 of 20, glucose 248, and creatinine 0.8. ASSESSMENT: This is a 56-year-old female with uncontrolled and decompensated type 2 insulin-requiring diabetes with hyperglycemic fluctuations as expected thereof especially with underlying increased physical and emotional stressors, which could cause further insulin resistance and further impaired glucose tolerance thereof. PLAN OF MANAGEMENT: We will modify the current insulin regimen and switch over to combination of basal and premixed insulin regimen that she was using at home, and the modified dose will be started tonight as ordered. Hemoglobin A1c will be done to confirm a prior glycemic control, and baseline thyroid function studies will be ordered. We will follow and advise accordingly. Lorri Cao MD
[2017-06-14] MEDS ORDERED: Insulin Human NPH/Reg 70/30 Vial(3 ml) SC SCH ×2 (07:30→16:30)
[2017-06-14] MEDS: Insulin Reg-LOW-Coverage SC SCH ×4 (08:18→21:51)
[2017-06-14] MEDS: Divalproex 500 mg DR(BID formulation) PO SCH ×2 (08:18→22:01)
[2017-06-14] MEDS: Tmp-Smz 800 mg-160 mg DS Tab PO SCH ×2 (10:00→18:43)
[2017-06-14] MEDS: Naproxen 550 mg Tab PO PRN (11:11)
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
--- NOTE | 2017-06-14 21:54 | PN ---
DATE: ENDOCRINOLOGY FOLLOWUP NOTE LOCATION: Room 508, Psychiatry. SUBJECTIVE: This is a 56-year-old female with recent uncontrolled type 2 insulin requiring diabetes, now being followed closely for metabolic management. She had a recent exacerbation of major depression and behavioral disturbances, now being followed closely in the Psychiatric unit. Her glucose levels have ranged from 178 to 271 and 240 mg/dL. Her latest chemistry showed a BUN of 16, sodium 140, potassium 4.5, chloride 104, CO2 of 20, glucose 240 and creatinine 0.8. So at this time we will modify once again her basal and bolus insulin regimen and increase the Humulin 70/30 to 26 units a.c. breakfast and 16 units a.c. dinner to start today. We will also increase the Levemir to 10 units subcu at bedtime daily to start tonight. We will obtain serial chemistries and supplement accordingly as needed. We will follow with you. Lorri Cao MD
[2017-06-14] MEDS ORDERED: Insulin Detemir 100 units/ml Vial (Levemir) SC SCH (22:00)
[2017-06-15] MEDS: Tmp-Smz 800 mg-160 mg DS Tab PO SCH ×2 (06:49→17:14)
[2017-06-15 07:29] LABS: HEMOGLOBIN 14.8 g/dL (12.0-16.0); MEAN CELL VOLUME 86.6 fl (80.0-105.0); MEAN CORPUSCULAR HEMOGLOBIN 29.7 pg (25.0-35.0); MEAN CORPUSCULAR HGB CONC 34.3 g/dl (31.0-37.0); MEAN PLATELET VOLUME 9.4 fl (7.0-11.0); RBC 4.99 10^6/uL (3.5-6.1); RED CELL DISTRIBUTION WIDTH 13.7 % (11.5-14.5); WHITE BLOOD COUNT 7.5 10^3/ul (4.5-11.0)
[2017-06-15] MEDS ORDERED: Insulin Human NPH/Reg 70/30 Vial(3 ml) SC SCH (07:30)
[2017-06-15 08:03] LABS: ALB/GLOB RATIO 1.3 (1.1-1.8); ALBUMIN 4.2 g/dL (3.0-4.8); ALT/SGPT 36 U/L (7-56); AST/SGOT 21 U/L (14-36); BLOOD UREA NITROGEN 25 mg/dL (7-21); GFR AFRICAN-AMERICAN > 60; GFR NON-AFRICAN AMERICAN 57
[2017-06-15] MEDS: Insulin Reg-LOW-Coverage SC SCH ×4 (08:07→21:33)
[2017-06-15] MEDS: diltiaZEM 180 mg/24 Hours CD Cap PO SCH (08:14)
[2017-06-15] MEDS: Naproxen 550 mg Tab PO PRN (08:14)
[2017-06-15] MEDS: Divalproex 500 mg DR(BID formulation) PO SCH ×2 (08:14→22:39)
--- NOTE | 2017-06-15 08:38 | CON ---
DATE: 06/14/2017 HISTORY OF PRESENT ILLNESS: I have known her for a while as I was on consult with her the last time she was in the psychiatric floor and seen her in my office a few times. She is a 56-year-old female who presents to the emergency room, feeling confused this morning. She is also very anxious and needing more medications to calm her down through the heaviness and pressure on her chest and possibly suicidal. PAST MEDICAL HISTORY: She has a past medical history that includes hypertension, diabetes, depression, possibly suicidal, pneumonia history. She had cellulitis of the lower extremities in the past, diverticulitis and reflux with colitis. She has had urinary tract infections. She has anxiety, depression, schizophrenia, suicidal thoughts. She has had a colonoscopy and an endoscopy. FAMILY HISTORY: Unknown. SOCIAL HISTORY: She still smokes cigarettes. No alcohol. No drugs. ALLERGIES: SHE IS ALLERGIC TO AMOXICILLIN, CLARITHROMYCIN AND CLAVULANIC ACID, WHICH IS FROM AUGMENTIN. MEDICATION: She takes enalapril, Protonix, Cardizem, Levemir, and Xanax. REVIEW OF SYSTEMS: HEENT: No acute vision changes or hearing changes. No sore throat. NECK: No neck pain. CHEST: There was some chest pressure and heaviness when she came in, but not now. No shortness of breath. States she was confused when she came in, but not now. ABDOMEN: No abdominal pain, nausea, vomiting, constipation, diarrhea. EXTREMITIES: Legs are okay. SKIN: For what she knows, is okay. NEUROLOGIC: A little anxiety, suicidal ideation. PHYSICAL EXAMINATION: GENERAL: She is alert and oriented x3. She is well appearing, nontoxic, but a little stressed. VITAL SIGNS: She has 98.9 temperature, 115 pulse, 14 respiratory rate, 124/89 blood pressure, 95% O2 saturation on room air. HEENT: Head is atraumatic and normocephalic. Pupils are equal and reactive to light and accommodation. Extraocular muscles are intact. Throat is moist. NECK: Supple. Thyroid midline. No palpable lymphadenopathy appreciated. HEART: Regular rate. Normal S1, S2. LUNGS: Clear to auscultation bilaterally. ABDOMEN: Soft, nontender. Positive bowel sounds. No guarding, no rebound, no CVA tenderness. A little bit obese. EXTREMITIES: Have trace edema bilaterally. NEUROLOGIC: GCS is 15. Cranial nerves II through XII grossly intact. Normal speech. Alert and oriented x3. SKIN: Warm and dry. Skin for the most part is intact. No apparent rashes or ulcers. LABORATORY DATA: She has a 9.1 white count, 14.7 hemoglobin, 43 hematocrit with 279 platelets. She has a 140 sodium, potassium 4.5, BUN 16, creatinine 0.8, GFR is greater than 60. Sugars are 271, 178, 240. Calcium is 7.2. Total bili is 0.5, AST is 22, ALT is 31, alk phos is 84. Troponin-I is less than 0.01. Total protein is 7.5, albumin is 4.3. Urine with many bacteria; I am going to put her on antibiotics for urinary tract infection. Toxicology was negative. She has a chest x-ray that shows disease. She had an EKG that shows sinus tachycardia, left axis deviation. ASSESSMENT AND PLAN: She is currently here for depression, suicidal ideation; she has some diabetes, urinary tract infection, hypertension, congestive heart failure; and she was confused when she came in. Readjustment of medications. We will check her labs tomorrow. Watch her closely. Put her on some antibiotics for the urinary tract infection. She is on Bactrim DS, Naprosyn, diltiazem, Depakote, Desyrel, Geodon, insulin coverage, Lasix, Levemir, MiraLax, milk of magnesia, Pepcid, Tylenol, Xanax, and Zestril. Darek Ramirez DO INTERFAITH MEDICAL CENTERParminder
--- NOTE | 2017-06-15 14:00 | PN ---
DATE: 06/15/2017 SUBJECTIVE: I saw her at the psychiatric floor. She is walking in the halls, may be a little bit better, not much yet. She is taking her medications. In a little bit better spirits, seems down, still depressed. She is trying to eat. She is taking her medications. She slept fairly well. PHYSICAL EXAMINATION: VITAL SIGNS: She has 98 temperature, 102 pulse, 152/96 blood pressure, work on her blood pressure medications if it is too high. HEENT: Head is atraumatic, normocephalic. Throat is moist. NECK: Supple. HEART: Regular rate. LUNGS: Decreased breath sounds but clear. ABDOMEN: Soft, morbidly obese. EXTREMITIES: No edema. MEDICATIONS: She is currently on Anaprox, Bactrim, Cardizem 360, Depakote, Desyrel, Effexor, Geodon, insulin, Lasix 40, Levemir, Maalox, milk of magnesia, famotidine, Tylenol, Xanax, and lisinopril 10 mg. LABORATORY DATA: She has a 7.5 white count, 14.8 hemoglobin, 43.2 hematocrit with 308 platelets. She has a 140 sodium, potassium 4.8, BUN 25, creatinine 1, GFR is greater than 60, sugar is 205, calcium is 10. Total bili is 0.5, AST is 21, ALT is 36, alk phos 86, total protein is 7.4. Urine with many antibiotics for UTI on her. ASSESSMENT AND PLAN: She is depressed, congestive heart failure history, confused a little bit, urinary tract infection, diabetes, hypertension. We are going to adjust her medications. She is being seen by Endocrinology for her diabetes. She did have a chest x-ray. No active disease and we will watch her very closely on psychiatric floor medically. Darek Ramirez DO MTDD
--- NOTE | 2017-06-15 16:01 | PCM.PYCHPN ---
Psychiatric Progress Note - Psychiatric Progress Note Patient seen today, length of contact: 30min Patient Chief Complaint: "I feel the same" Problems Identified/Issues Discussed: Suicide/ homicide prevention, past psychiatric h/o, current psychiatric symptoms , medical problems, risk/benefits and alternatives of medications, medications compliance, coping strategies, substance abuse h/o, relapse prevention, importance of follow up with psychiatrist and therapist, discharge plan. 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 Diagnostic Results: 06/15/17 07:00 06/15/17 07:00 Lab Results 06/15/17 11:09: POC Glucose (mg/dL) 289 H 06/15/17 07:10: POC Glucose (mg/dL) 207 H 06/15/17 07:00: Valproic Acid 46 L 06/15/17 07:00: Sodium 140, Potassium 4.8, Chloride 103, Carbon Dioxide 22, Anion Gap 19, BUN 25 H, Creatinine 1.0, Est GFR ( Amer) > 60, Est GFR ( Non-Af Amer) 57, Random Glucose 205 H, Calcium 10.0, Total Bilirubin 0.5, AST 21 , ALT 36, Alkaline Phosphatase 86, Total Protein 7.4, Albumin 4.2, Globulin 3.3 , Albumin/Globulin Ratio 1.3 06/15/17 07:00: WBC 7.5, RBC 4.99, Hgb 14.8, Hct 43.2, MCV 86.6, MCH 29.7, MCHC 34.3, RDW 13.7, Plt Count 308, MPV 9.4 06/14/17 21:32: POC Glucose (mg/dL) 189 H 06/14/17 16:07: POC Glucose (mg/dL) 191 H 06/14/17 11:12: POC Glucose (mg/dL) 271 H 06/14/17 07:38: POC Glucose (mg/dL) 178 H 06/13/17 21:09: POC Glucose (mg/dL) 240 H 06/13/17 16:28: POC Glucose (mg/dL) 231 H 06/13/17 11:00: Urine Opiates Screen Negative, Urine Methadone Screen Negative, Ur Barbiturates Screen Negative, Ur Phencyclidine Scrn Negative, Ur Amphetamines Screen Negative, U Benzodiazepines Scrn Positive, U Oth Cocaine Metabols Negative, U Cannabinoids Screen Negative 06/13/17 11:00: Urine Color Yellow, Urine Appearance Clear, Urine pH 6.0, Ur Specific [place] >= 1.030, Urine Protein 30 H, Urine Glucose (UA) Negative, Urine Ketones 40 H, Urine Blood Negative, Urine Nitrate Negative, Urine Bilirubin Small H, Urine Urobilinogen 0.2, Ur Leukocyte Esterase Moderate H, Urine RBC Negative, Urine WBC 5 - 10, Ur Epithelial Cells Many, Urine Bacteria Many 06/13/17 08:58: Alcohol, Quantitative < 10 06/13/17 08:58: Salicylates 2, Acetaminophen < 10.0 L 06/13/17 08:58: Sodium 140, Potassium 4.5, Chloride 104, Carbon Dioxide 20 L, Anion Gap 20, BUN 16, Creatinine 0.8, Est GFR ( Amer) > 60, Est GFR (Non- Af Amer) > 60, Random Glucose 248 H, Calcium 10.2, Total Bilirubin 0.5, AST 22, ALT 31, Alkaline Phosphatase 84, Troponin I < 0.01, Total Protein 7.5, Albumin 4.3, Globulin 3.2, Albumin/Globulin Ratio 1.3 06/13/17 08:58: WBC 9.1 D, RBC 4.93, Hgb 14.7 D, Hct 43.0, MCV 87.2, MCH 29.8 , MCHC 34.2, RDW 13.5, Plt Count 279, MPV 9.3, Gran % 71.7 H, Lymph % (Auto) 23.3, [place] % (Auto) 4.4, Eos % (Auto) 0.3 L, Baso % (Auto) 0.3, Gran # 6.55 H, Lymph # (Auto) 2.1, [place] # (Auto) 0.4, Eos # (Auto) 0.0, Baso # (Auto) 0.03 Vital Signs Temp Pulse Resp BP Pulse Ox 06/15/17 08:15 102 H 152/96 H 06/15/17 08:14 102 H 152/96 H 06/15/17 07:02 98.0 F 102 H 20 152/96 H 06/14/17 16:00 99 H 119/80 06/14/17 07:13 97.9 F 98 H 20 121/85 06/13/17 16:30 92 H 124/82 06/13/17 14:11 100 H 16 133/86 96 06/13/17 07:57 98.9 F 115 H 14 124/89 95 DSM 5 Symptoms Update: shortly patient is 56 year old Female, reported h/o schizoaffective disorder, multiple psychiatric admissions, including this facility under 's services, most recent admission was [id number], pt currently attends [facility] IOP program, pt denied h/o suicidal attempts, pt presented with medical complaints in ED, then pt said she feels depressed, and pt reported that she did not want to live, pt said that she was not able to function because of the memory problems, reported to be depressed and hopeless and signed consent for treatment. pt was seen and examined at the treatment team today, poor hygiene, good ADLs, pt is obese, has psychomotor retardation. pt reported that she did not sleep well, pt also reported that her mood is "the same". pt did not want to elaborate on psychotic symptoms, but appears to be internally preoccupied. as per staff pt attends groups, no agitation, no aggression. pt tolerates meds well. pt filling meds in [facility] pharmacy as well as [facility]. [facility] was contacted [phone] pt was on xanax not 2 mg po tid but xanax 1mg po tid amitryptillyne 100mg po hs vistaril as needed 25 mg depakote 500mg bid Impression: schizoaffective disorder Medication Change: Yes Medical Record Reviewed: Yes Consults ordered or reviewed: medical and endocrinology Mental Status Examination - Cognitive Function Orientation: Person Memory: Intact Attention: Poor Concentration: Poor Association: Loose Fund of Knowledge: Poor - Mood Mood: Depressed, Anxious - Affect Affect: Flat - Speech Speech: Soft - Formal Thought Process Formal Thought Process: Hallucinations, Delusions, Paranoia - Suicidal Ideation Suicidal Ideation: No - Homicidal Ideation Homicidal Ideation: No Goal/Treatment Plan - Goal/Treatment Plan Need for Continued Stay: Remain at risks for inpatient hospitalization, Severe depression anxiety, Discharge may exacerbated symptoms, Severe functional impairment Progress Toward Problem(s) and Goals/Treatment Plan: milieu/structure/supportive therapy Amitriptyline d/c Effexor started 06/14/17 37.5mg po daily for depression and anxiety Divalproex [Katharine BLOOM(*BID*)] 1,000 mg PO HS and 500mg am Insulin NPH Hum/Reg Insulin Ziprasidone 40mg po bid for psychosis and mood stabilization ALPRAZolam [Xanax] will be decreased to 1mg po tid prn anxiety Tramadol HCl [Ultram] prn as per medical team Medical consult appreciated, see medical team note for more detailed info SW consultation for discharge plan and social issues Family involvement Follow up on labs Will monitor closely Pt was educated about risk/benefits and alternatives of medications, coping strategies (safety plan, suicide prevention), relapse prevention, importance of follow up with psychiatrist and therapist, stay away from drugs/alcohol/smoking Estimated Date of D/C: 06/20/17
[2017-06-15] MEDS: Insulin Human NPH/Reg 70/30 Vial(3 ml) SC SCH (16:38)
[2017-06-15] MEDS ORDERED: Insulin Detemir 100 units/ml Vial (Levemir) SC SCH (22:00)
--- NOTE | 2017-06-16 00:07 | PN ---
DATE: ENDOCRINOLOGY FOLLOWUP NOTE LOCATION: Room 508, Psychiatry. SUBJECTIVE: This is a 56-year-old female with recent uncontrolled type 2 insulin-requiring diabetes, now being followed closely for metabolic management. Her glycemic levels are fluctuating as noted today with glucose values ranging from 207 to 289 mg/dL. Her bedtime glucose was 189 mg/dL. Her latest chemistry showed a BUN of 25, sodium 140, potassium 4.8, chloride 103, CO2 22, glucose 205 and creatinine 1.0. Her bedtime glucose was 189 mg/dL. So at this time, we will modify once again her basal and premixed insulin regimen and increase the Humulin 70/30 to 30 units before breakfast and 20 units before dinner to start today. We will also increase her bedtime basal insulin with Levemir to be given as 14 units subcu at bedtime daily to start tonight. We will titrate incrementally as indicated to optimize metabolic control. We will obtain serial chemistries and supplement accordingly needed. We will follow. Lorri Cao MD
[2017-06-16] MEDS: Tmp-Smz 800 mg-160 mg DS Tab PO SCH ×2 (06:16→17:08)
[2017-06-16] MEDS: Insulin Reg-LOW-Coverage SC SCH ×4 (08:31→21:35)
[2017-06-16] MEDS: diltiaZEM 180 mg/24 Hours CD Cap PO SCH (08:52)
[2017-06-16] MEDS: Divalproex 500 mg DR(BID formulation) PO SCH ×2 (08:53→21:11)
[2017-06-16] MEDS: Insulin Human NPH/Reg 70/30 Vial(3 ml) SC SCH ×2 (08:56→17:09)
--- NOTE | 2017-06-16 13:47 | PN ---
DATE: SUBJECTIVE: I saw Anna Marie in the dining room. She is eating well. She tells me she is feeling a lot better, but she needs a stool softener. She is taking her medications, participating in groups. She is walking around well. No problems. No shortness of breath, chest pain or abdominal pain. PHYSICAL EXAMINATION VITAL SIGNS: She has 98.2 temperature, 86 pulse, 128/77 blood pressure, 20 respiratory rate. HEART: Regular rate. LUNGS: Clear to auscultation. ABDOMEN: Obese, soft, but she is constipated. EXTREMITIES: No edema. MEDICATIONS: She is currently on Anaprox, Bactrim for UTI; I added Colace, Depakote, Desyrel, Effexor, Geodon, insulin, Lasix, Levemir, milk of magnesia, Maalox, Pepcid, Tylenol, Xanax, Zestril. LABORATORY DATA: She has 7.5 white count, 14.8 hemoglobin, 308 platelets. Sodium 140, potassium 4.8, BUN 25, creatinine 1 and asked her to drink more water, blood sugar is down to 194. AST is 21, ALT is 36, alkaline phosphatase 86, total protein 7.4. She is taking insulin. I am going to increase the Levemir to 18 units at nighttime until we have a consistent blood sugar in the 100s. I am going to transfuse her, check her labs, check her blood sugars, see how her bowels are doing. I encouraged her to participate in groups and with her psychiatrist; she is here for depression, suicidal ideation, diabetes, urinary tract infarction, hypertension, congestive heart failure, constipation, confusion. Darek Ramirez DO
--- NOTE | 2017-06-16 15:18 | PCM.PYCHPN ---
Psychiatric Progress Note - Psychiatric Progress Note Patient seen today, length of contact: 30min Patient Chief Complaint: "I need to feed my cat" Problems Identified/Issues Discussed: Suicide/ homicide prevention, past psychiatric h/o, current psychiatric symptoms , medical problems, risk/benefits and alternatives of medications, medications compliance, coping strategies, substance abuse h/o, relapse prevention, importance of follow up with psychiatrist and therapist, discharge plan. 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 Diagnostic Results: 06/15/17 07:00 06/15/17 07:00 Lab Results 06/15/17 11:09: POC Glucose (mg/dL) 289 H 06/15/17 07:10: POC Glucose (mg/dL) 207 H 06/15/17 07:00: Valproic Acid 46 L 06/15/17 07:00: Sodium 140, Potassium 4.8, Chloride 103, Carbon Dioxide 22, Anion Gap 19, BUN 25 H, Creatinine 1.0, Est GFR ( Amer) > 60, Est GFR ( Non-Af Amer) 57, Random Glucose 205 H, Calcium 10.0, Total Bilirubin 0.5, AST 21 , ALT 36, Alkaline Phosphatase 86, Total Protein 7.4, Albumin 4.2, Globulin 3.3 , Albumin/Globulin Ratio 1.3 06/15/17 07:00: WBC 7.5, RBC 4.99, Hgb 14.8, Hct 43.2, MCV 86.6, MCH 29.7, MCHC 34.3, RDW 13.7, Plt Count 308, MPV 9.4 06/14/17 21:32: POC Glucose (mg/dL) 189 H 06/14/17 16:07: POC Glucose (mg/dL) 191 H 06/14/17 11:12: POC Glucose (mg/dL) 271 H 06/14/17 07:38: POC Glucose (mg/dL) 178 H 06/13/17 21:09: POC Glucose (mg/dL) 240 H 06/13/17 16:28: POC Glucose (mg/dL) 231 H 06/13/17 11:00: Urine Opiates Screen Negative, Urine Methadone Screen Negative, Ur Barbiturates Screen Negative, Ur Phencyclidine Scrn Negative, Ur Amphetamines Screen Negative, U Benzodiazepines Scrn Positive, U Oth Cocaine Metabols Negative, U Cannabinoids Screen Negative 06/13/17 11:00: Urine Color Yellow, Urine Appearance Clear, Urine pH 6.0, Ur Specific [place] >= 1.030, Urine Protein 30 H, Urine Glucose (UA) Negative, Urine Ketones 40 H, Urine Blood Negative, Urine Nitrate Negative, Urine Bilirubin Small H, Urine Urobilinogen 0.2, Ur Leukocyte Esterase Moderate H, Urine RBC Negative, Urine WBC 5 - 10, Ur Epithelial Cells Many, Urine Bacteria Many 06/13/17 08:58: Alcohol, Quantitative < 10 06/13/17 08:58: Salicylates 2, Acetaminophen < 10.0 L 06/13/17 08:58: Sodium 140, Potassium 4.5, Chloride 104, Carbon Dioxide 20 L, Anion Gap 20, BUN 16, Creatinine 0.8, Est GFR ( Amer) > 60, Est GFR (Non- Af Amer) > 60, Random Glucose 248 H, Calcium 10.2, Total Bilirubin 0.5, AST 22, ALT 31, Alkaline Phosphatase 84, Troponin I < 0.01, Total Protein 7.5, Albumin 4.3, Globulin 3.2, Albumin/Globulin Ratio 1.3 06/13/17 08:58: WBC 9.1 D, RBC 4.93, Hgb 14.7 D, Hct 43.0, MCV 87.2, MCH 29.8 , MCHC 34.2, RDW 13.5, Plt Count 279, MPV 9.3, Gran % 71.7 H, Lymph % (Auto) 23.3, [place] % (Auto) 4.4, Eos % (Auto) 0.3 L, Baso % (Auto) 0.3, Gran # 6.55 H, Lymph # (Auto) 2.1, [place] # (Auto) 0.4, Eos # (Auto) 0.0, Baso # (Auto) 0.03 Vital Signs Temp Pulse Resp BP Pulse Ox 06/15/17 08:15 102 H 152/96 H 06/15/17 08:14 102 H 152/96 H 06/15/17 07:02 98.0 F 102 H 20 152/96 H 06/14/17 16:00 99 H 119/80 06/14/17 07:13 97.9 F 98 H 20 121/85 02/05/18 16:30 92 H 124/82 02/05/18 14:11 100 H 16 133/86 96 06/13/17 07:57 98.9 F 115 H 14 124/89 95 DSM 5 Symptoms Update: shortly patient is 56 year old Female, reported h/o schizoaffective disorder, multiple psychiatric admissions, including this facility under 's services, most recent admission was [id number], pt currently attends [facility] IOP program, pt denied h/o suicidal attempts, pt presented with medical complaints in ED, then pt said she feels depressed, and pt reported that she did not want to live, pt said that she was not able to function because of the memory problems, reported to be depressed and hopeless and signed consent for treatment. pt was seen and examined at the treatment team room today, poor hygiene, good ADLs, pt is obese, has psychomotor retardation. pt presented to be irritable, on edge, said "I want to go home", pt seems to be forgetful, said that she wants to see her belongings, staff assisted pt with that. pt still unsatisfied, said that she needs to feed her cat, SW will assist pt to call to pt's sister. pt did not want to elaborate on psychotic symptoms, but appears to be internally preoccupied, guarded and paranoid. as per staff pt attends groups, no agitation, no aggression. Impression: schizoaffective disorder Medication Change: Yes (effexor increased, geodon incresaed) Medical Record Reviewed: Yes Consults ordered or reviewed: medical and endocrinology Mental Status Examination - Cognitive Function Orientation: Person Memory: Intact Attention: Poor Concentration: Poor Association: Loose Fund of Knowledge: Poor - Mood Mood: Depressed, Anxious - Affect Affect: Flat - Speech Speech: Soft - Formal Thought Process Formal Thought Process: Hallucinations, Delusions, Paranoia - Suicidal Ideation Suicidal Ideation: No - Homicidal Ideation Homicidal Ideation: No Goal/Treatment Plan - Goal/Treatment Plan Need for Continued Stay: Remain at risks for inpatient hospitalization, Severe depression anxiety, Discharge may exacerbated symptoms, Severe functional impairment Progress Toward Problem(s) and Goals/Treatment Plan: milieu/structure/supportive therapy Amitriptyline d/c Effexor will be increased to 75mg po bid for depression and anxiety Divalproex [Katharine BLOOM(*BID*)] 1,000 mg PO HS and 500mg am will check depakote lefel Insulin NPH Hum/Reg Insulin Ziprasidone 60mg po bid for psychosis and mood stabilization ALPRAZolam [Xanax] will be decreased to 1mg po tid prn anxiety Tramadol HCl [Ultram] prn as per medical team Medical consult appreciated, see medical team note for more detailed info SW consultation for discharge plan and social issues Family involvement Follow up on labs Will monitor closely Pt was educated about risk/benefits and alternatives of medications, coping strategies (safety plan, suicide prevention), relapse prevention, importance of follow up with psychiatrist and therapist, stay away from drugs/alcohol/smoking Estimated Date of D/C: 06/20/17
[2017-06-16] MEDS: Insulin Detemir 100 units/ml Vial (Levemir) SC SCH (21:30)
--- NOTE | 2017-06-16 21:52 | PN ---
DATE: ENDOCRINOLOGY FOLLOWUP NOTE LOCATION: Room 508, Psychiatry. SUBJECTIVE: This is a 56-year-old female with recent uncontrolled type 2 insulin-requiring diabetes, now being followed closely for metabolic management. Her glycemic levels are fluctuating, but are much improved at this time and have ranged from 194 to 260 mg/dL. It was 239 at bedtime last night. The latest chemistry shows a BUN of 25, sodium 140, potassium 4.8, chloride 103, CO2 of 22, glucose 205, and creatinine 1.0. So, at this time, we will modify once again her basal and bolus insulin regimen and increase the Levemir to 18 units subcu at bedtime daily as ordered. We will continue the premixed insulin regimen with Humulin 70/30 given as 30 units before breakfast and 20 units before dinner as ordered. We will titrate incrementally as indicated to optimize metabolic control. We will follow and advise accordingly. Lorri Cao MD
[2017-06-17] MEDS: Insulin Human NPH/Reg 70/30 Vial(3 ml) SC SCH ×2 (08:00→17:27)
[2017-06-17] MEDS: Insulin Reg-LOW-Coverage SC SCH ×4 (08:00→22:00)
--- NOTE | 2017-06-17 08:51 | CP.PCM.CON ---
<Shannan Merchant - Last Filed: 06/17/17 11:29> History of Present Illness - History of Present Illness History of Present Illness: Gi consult note for Dr Gómez's service Reason for consult: nausea, vomting, constipation Patient is a 56 y/o with pmhx of DM, HTN, UTI, CAD, and schizoaffective disorder who initially presented with depression, and Gi is being consulted for nausea, vomiting and constipation. Patient states prior to admission into psych unit, she wasn't experiencing constipation. Used to bowel movement once day. Since admission she has not been able to have bowel movement. Has been nauseous and bloated and vomited twice yesterday. Patient was giving dulcolax suppository and 2 enemas, states she had small bowl movement last night. Denies nausea at this time. Admits to stomach discomfort and feeling bloated. Denies fever or chills. Had colonoscopy few years ago, performed by Dr Humphries, states she was found to have diverticulosis/diverticulitis at the time. PMHx: DM, HTN, UTI, PSHx: colonoscopy and EGD. cardiac cath FMhx: all kinds of cancers in the family Social: admits to tobacco, denies alcohol or illicit drug use. Allergy: amoxi, clarithromycin, and clavulanic acid Home meds: as per chart. Review of Systems - Review of Systems All systems: reviewed and no additional remarkable complaints except Review of Systems: 12 point ROS reviewed, all negative except as per HPI. Past Patient History - Infectious Disease Hx of Infectious Diseases: None - Tetanus Immunizations Tetanus Immunization: Unknown - Past Medical History & Family History Past Medical History?: Yes - Past Social History Smoking Status: Heavy Smoker > 10 Cigarettes Daily Alcohol: None Drugs: Denies Home Situation {Lives}: With Family - CARDIAC Hx Cardiac Disorders: Yes Hx Hypertension: Yes - PULMONARY Hx Respiratory Disorders: Yes Hx Pneumonia: Yes - NEUROLOGICAL Hx Neurological Disorder: No - HEENT Hx HEENT Problems: No - RENAL Hx Chronic Kidney Disease: No - ENDOCRINE/METABOLIC Hx Endocrine Disorders: Yes Hx Diabetes Mellitus Type 2: Yes - HEMATOLOGICAL/ONCOLOGICAL Hx Blood Disorders: No - INTEGUMENTARY Hx Dermatological Problems: Yes Other/Comment: cellulitis to the lower extremities since 08/23, REFUSING TO HAVE LEGS ASSESSED TODAY - MUSCULOSKELETAL/RHEUMATOLOGICAL Hx Musculoskeletal Disorders: No Hx Falls: No - GASTROINTESTINAL Hx Gastrointestinal Disorders: Yes Hx Diverticulitis: Yes Hx Gastroesophageal Reflux: Yes Other/Comment: colitis - GENITOURINARY/GYNECOLOGICAL Hx Genitourinary Disorders: Yes Hx Urinary Tract Infection: Yes - PSYCHIATRIC Hx Substance Use: No - SURGICAL HISTORY Hx Cardiac Catheterization: Yes Other/Comment: Colonoscopy. Endoscopy - ANESTHESIA Hx Anesthesia: Yes Hx Anesthesia Reactions: No Hx Malignant Hyperthermia: No Meds Allergies/Adverse Reactions: Allergies Allergy/AdvReac Type Severity Reaction Status Date / Time amoxicillin [From Augmentin] Allergy NAUSEA Verified 06/13/17 18:38 clarithromycin [From Biaxin] Allergy RASH Verified 06/13/17 18:38 clavulanic acid Allergy NAUSEA Verified 06/13/17 18:38 [From Augmentin] - Medications Medications: Current Medications Acetaminophen (Tylenol 325mg Tab) 650 mg PO Q4 PRN PRN Reason: Pain, Mild (1-3) Last Admin: 06/14/17 22:00 Dose: 650 mg Al Hydrox/Mg Hydrox/Simethicone (Maalox Plus 30 Ml) 30 ml PO DAILY PRN PRN Reason: Upset Stomach Alprazolam (Xanax) 1 mg PO TID PRN; Protocol PRN Reason: Anxiety Last Admin: 06/16/17 06:56 Dose: 1 mg Diltiazem HCl (Cardizem Cd) 360 mg PO DAILY [facility] Last Admin: 06/16/17 08:52 Dose: 360 mg Divalproex Sodium (Depakote Dr(*Bid*)) 500 mg PO DAILY [facility] PRN Reason: Protocol Last Admin: 06/16/17 08:53 Dose: 500 mg Divalproex Sodium (Depakote Dr(*Bid*)) 1,000 mg PO [facility] PRN Reason: Protocol Last Admin: 06/16/17 21:11 Dose: Not Given Docusate Sodium (Colace) 100 mg PO DAILY [facility] Last Admin: 06/16/17 09:40 Dose: 100 mg Famotidine (Pepcid) 20 mg PO BID [facility] Last Admin: 06/16/17 17:08 Dose: 20 mg Furosemide (Lasix) 40 mg PO DAILY [facility] Last Admin: 06/16/17 08:51 Dose: 40 mg Insulin Detemir (Levemir) 18 unit SC [facility] Last Admin: 06/16/17 21:30 Dose: 18 unit Insulin Human Regular (Humulin R Low) 0 units SC ACHS [facility] PRN Reason: Protocol Last Admin: 06/16/17 21:35 Dose: Not Given Lisinopril (Zestril) 20 mg PO DAILY [facility] Last Admin: 06/16/17 08:53 Dose: 20 mg Magnesium Hydroxide (Milk Of Magnesia) 30 ml PO DAILY PRN PRN Reason: Constipation Last Admin: 06/16/17 20:02 Dose: 30 ml Naproxen (Anaprox Ds) 550 mg PO BID PRN PRN Reason: Pain, severe (8-10) Last Admin: 06/15/17 08:14 Dose: 550 mg Ondansetron HCl (Zofran Tab) 4 mg PO Q8H PRN PRN Reason: Nausea/Vomiting Last Admin: 06/16/17 20:33 Dose: 4 mg Psyllium Hydrophilic Mucilloid (Hydrocil Instant) 1 pkt PO DAILY [facility] Trimethoprim/Sulfamethoxazole (Bactrim Ds Tab) 1 tab PO Q12 [facility] Last Admin: 06/16/17 17:08 Dose: 1 tab Venlafaxine HCl (Effexor) 75 mg PO BID [facility] Last Admin: 06/16/17 17:08 Dose: 75 mg Zaleplon (Sonata) 5 mg PO HS [facility] Last Admin: 06/16/17 21:12 Dose: Not Given Ziprasidone (Geodon Cap) 60 mg PO [facility] PRN Reason: Protocol Last Admin: 06/16/17 21:11 Dose: Not Given Physical Exam - Constitutional Appears: No Acute Distress, Older Than Stated Age, Chronically Ill - Head Exam Head Exam: ATRAUMATIC, NORMAL INSPECTION, NORMOCEPHALIC - Eye Exam Eye Exam: EOMI, Normal appearance, PERRL. absent: Scleral icterus Pupil Exam: NORMAL ACCOMODATION - ENT Exam ENT Exam: Mucous Membranes Moist - Neck Exam Neck exam: Positive for: Normal Inspection - Respiratory Exam Respiratory Exam: Clear to Auscultation Bilateral, NORMAL BREATHING PATTERN. absent: Decreased Breath Sounds, Rales, Rhonchi, Stridor - Cardiovascular Exam Cardiovascular Exam: REGULAR RHYTHM, RRR, +S1, +S2. absent: JVD, Systolic Murmur - GI/Abdominal Exam GI & Abdominal Exam: Distended, Normal Bowel Sounds, Soft, Tenderness ( periumbilical ). absent: Firm, Guarding, Hypoactive Bowel Sounds, Pulsatile Mass, Rebound, Rigid - Extremities Exam Extremities exam: Positive for: normal inspection - Back Exam Back exam: NORMAL INSPECTION - Neurological Exam Neurological exam: Alert, Oriented x3 - Psychiatric Exam Psychiatric exam: Flat Affect - Skin Skin Exam: Diaphoretic, Intact, Normal Color, Warm Results - Vital Signs Recent Vital Signs: Last Vital Signs Temp 98.9 F 06/17/17 07:34 Pulse 87 06/17/17 07:34 Resp 20 06/17/17 07:34 BP 134/67 06/17/17 07:34 Pulse Ox 96 06/13/17 14:11 - Labs Result Diagrams: 06/15/17 07:00 06/15/17 07:00 Labs: Laboratory Results - last 24 hr 06/16/17 06/16/17 06/16/17 11:34 16:24 20:07 POC Glucose (mg/dL) 216 H 205 H 273 H 06/16/17 06/17/17 06/17/17 21:13 01:14 03:28 POC Glucose (mg/dL) 289 H 201 H 228 H 06/17/17 07:17 POC Glucose (mg/dL) 230 H Assessment & Plan - Assessment and Plan (Free Text) Assessment: Patient is a 56 y/o with PMHx of DM, HTN, UTI, CAD, and schizoaffective disorder who initially presented with depression, and Gi is being consulted for nausea, vomiting and constipation. S/p enemas and dulcolax suppository with small bowel movement - Nausea/vomiting and abdominal pain- likely Constipation like due to medication induced side effects versus gastroenteritis, R/O hypothyroidism versus diverticulosis/diverticulitis, less likely obstruction due to recent bowel movement- this AM, - DM - HTN - CAD - Schizoaffective disorder Plan: - Will add miralax 17 mg bid - Continue Colace - Will change Pepcid to protonix - Full liquid for now, advance if patient tolerates the diet - will obtain TSh - Will hold off imaging, and consider one if the abdominal pain/nausea and vomiting persists or worsens. Patient seen, examined and case discussed with Dr Gómez. - Date & Time Date: 06/17/17 Time: 09:05 <Jean Gómez Y - Last Filed: 06/17/17 12:34> Meds - Medications Medications: Current Medications Acetaminophen (Tylenol 325mg Tab) 650 mg PO Q4 PRN PRN Reason: Pain, Mild (1-3) Last Admin: 06/14/17 22:00 Dose: 650 mg Al Hydrox/Mg Hydrox/Simethicone (Maalox Plus 30 Ml) 30 ml PO DAILY PRN PRN Reason: Upset Stomach Alprazolam (Xanax) 1 mg PO TID PRN; Protocol PRN Reason: Anxiety Last Admin: 06/16/17 06:56 Dose: 1 mg Diltiazem HCl (Cardizem Cd) 360 mg PO DAILY [facility] Last Admin: 06/17/17 10:55 Dose: 360 mg Divalproex Sodium (Depakote Dr(*Bid*)) 500 mg PO DAILY [facility] PRN Reason: Protocol Last Admin: 06/17/17 10:57 Dose: 500 mg Divalproex Sodium (Depakote Dr(*Bid*)) 1,000 mg PO HS [facility] PRN Reason: Protocol Last Admin: 06/16/17 21:11 Dose: Not Given Docusate Sodium (Colace) 100 mg PO DAILY [facility] Last Admin: 06/17/17 10:56 Dose: 100 mg Furosemide (Lasix) 40 mg PO DAILY [facility] Last Admin: 06/17/17 10:58 Dose: 40 mg Insulin Detemir (Levemir) 18 unit SC [facility] Last Admin: 06/16/17 21:30 Dose: 18 unit Insulin Human Regular (Humulin R Low) 0 units SC [facility] PRN Reason: Protocol Last Admin: 06/17/17 08:00 Dose: Not Given Lisinopril (Zestril) 20 mg PO DAILY [facility] Last Admin: 06/17/17 10:57 Dose: 20 mg Magnesium Hydroxide (Milk Of Magnesia) 30 ml PO DAILY PRN PRN Reason: Constipation Last Admin: 06/16/17 20:02 Dose: 30 ml Naproxen (Anaprox Ds) 550 mg PO BID PRN PRN Reason: Pain, severe (8-10) Last Admin: 06/15/17 08:14 Dose: 550 mg Ondansetron HCl (Zofran Tab) 4 mg PO Q8H PRN PRN Reason: Nausea/Vomiting Last Admin: 06/16/17 20:33 Dose: 4 mg Pantoprazole Sodium (Protonix Ec Tab) 40 mg PO 0600 [facility] Polyethylene Glycol (Miralax) 17 gm PO BID [facility] Last Admin: 06/17/17 10:55 Dose: 17 gm Psyllium Hydrophilic Mucilloid (Hydrocil Instant) 1 pkt PO DAILY [facility] Last Admin: 06/17/17 11:00 Dose: 1 pkt Trimethoprim/Sulfamethoxazole (Bactrim Ds Tab) 1 tab PO Q12 [facility] Last Admin: 06/17/17 10:57 Dose: 1 tab Venlafaxine HCl (Effexor) 75 mg PO BID [facility] Last Admin: 06/17/17 10:56 Dose: 75 mg Zaleplon (Sonata) 5 mg PO HS [facility] Last Admin: 06/16/17 21:12 Dose: Not Given Ziprasidone (Geodon Cap) 60 mg PO [facility] PRN Reason: Protocol Last Admin: 06/17/17 10:58 Dose: 60 mg Results - Vital Signs Recent Vital Signs: Last Vital Signs Temp 98.9 F 06/17/17 07:34 Pulse 87 06/17/17 10:57 Resp 20 06/17/17 07:34 BP 134/69 06/17/17 10:58 Pulse Ox 96 06/13/17 14:11 - Labs Result Diagrams: 06/15/17 07:00 06/15/17 07:00 Labs: Laboratory Results - last 24 hr 06/16/17 06/16/17 06/16/17 16:24 20:07 21:13 POC Glucose (mg/dL) 205 H 273 H 289 H 06/17/17 06/17/17 06/17/17 01:14 03:28 07:17 POC Glucose (mg/dL) 201 H 228 H 230 H 06/17/17 11:30 POC Glucose (mg/dL) 335 H Attending/Attestation - Attestation I have personally seen and examined this patient.: Yes I have fully participated in the care of the patient.: Yes I have reviewed all pertinent clinical information: Yes Notes (Text): 06/17/17 12:29 I have seen and examined patient with GI fellow and medical consultant. Agree with above documentation with the following additions. In brief, this is a 56 year old female with history of obesity (BMI 44), DM, HTN, CAD, schizoaffective disorder who presented to inpatient psychiatric unit for management of depressive symptoms. GI called for evaluation of abdominal pain, constipation. She describes feeling bloating with abdominal distention and epigastric discomfort for the past two days. This was associated with one episode of non- bloody emesis yesterday. She has not had a bowel movement for past 3 days which is apparently atypical for her, she generally has once daily formed bowel movements. She otherwise is seen ambulating in hallway and denies fever/chills , weight loss, or rectal bleeding. She had an EGD/colonoscopy several years ago with Dr. Trinidad which were normal as per patient. Review of vitals from today are normal. Additional physical examination: Abdomen: no palpable hepato/splenomegaly DM/HTN Obesity CAD Schizoaffective disorder Abdominal pain, constipation - Full liquid diet, advance slowly as tolerated - Check TSH - Anti-emetic therapy PRN - Maintain bowel regimen to prevent constipation - If patient symptoms persist despite conservative medical management, would consider additional cross sectional imaging for further evaluation - Will continue to monitor patient clinical course
[2017-06-17] MEDS: diltiaZEM 180 mg/24 Hours CD Cap PO SCH (10:55)
[2017-06-17] MEDS: POLYETHYLENE GLYCOL 3350 17 GM/Dose PACKET PO SCH (10:55)
[2017-06-17] MEDS: Tmp-Smz 800 mg-160 mg DS Tab PO SCH ×2 (10:57→17:25)
[2017-06-17] MEDS: Divalproex 500 mg DR(BID formulation) PO SCH ×2 (10:57→21:30)
[2017-06-17] MEDS: Psyllium Packet PO SCH (11:00)
--- NOTE | 2017-06-17 13:44 | PN ---
DATE: SUBJECTIVE: I saw her resting comfortably in bed in the psychiatric floor. She is having problems with her nauseousness and balance. She is a little bit constipated. She is asking for Metamucil. I will also call in GI. I ordered IV fluids last night for 6 hours, I did not know if they did better or not; also, she had a small bowel movement, but she is uncomfortable, not hungry. PHYSICAL EXAMINATION GENERAL: She is alert. She has got a flat affect. She is depressed. VITAL SIGNS: She has 98.9 temperature, 87 pulse, 134/67 blood pressure, 20 respiratory rate. HEENT: Head is atraumatic, normocephalic. HEART: Regular rate. LUNGS: Decreased breath sounds bilaterally. ABDOMEN: Soft, morbidly obese. Positive bowel sounds. No guarding, no rebound, no CVA tenderness. No palpable masses. EXTREMITIES: No edema. MEDICATIONS: She is currently on Anaprox, Bactrim, Cardizem, Colace, Depakote, Effexor, Geodon, insulin, HydroDIURIL, Lasix, Levemir, Maalox, milk of magnesia, Pepcid, Sonata, Tylenol, Xanax, Zestril, Zofran. LABORATORY DATA: She has a 7.5 white count, 14.8 hemoglobin, 42.2 hematocrit, 308,000 platelets. She has 140 sodium, potassium is 4.8, BUN 25, creatinine 1, GFR is 67. Her blood sugar was 230. PLAN: She had a consult with Endocrinology, also Psychiatry seeing her, called in GI, ordered labs for tomorrow. She had Zofran, Metamucil. I will see how GI can help this with her intestinal issues. nauseousness, constipation and UTI. Benjamin Ramirez DO MTDD
--- NOTE | 2017-06-17 15:47 | PCM.PYCHPN ---
Psychiatric Progress Note - Psychiatric Progress Note Patient seen today, length of contact: 30min Patient Chief Complaint: "I don't know" Problems Identified/Issues Discussed: Suicide/ homicide prevention, past psychiatric h/o, current psychiatric symptoms , medical problems, risk/benefits and alternatives of medications, medications compliance, coping strategies, substance abuse h/o, relapse prevention, importance of follow up with psychiatrist and therapist, discharge plan. 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 Diagnostic Results: 06/15/17 07:00 06/15/17 07:00 Lab Results 06/15/17 11:09: POC Glucose (mg/dL) 289 H 06/15/17 07:10: POC Glucose (mg/dL) 207 H 06/15/17 07:00: Valproic Acid 46 L 06/15/17 07:00: Sodium 140, Potassium 4.8, Chloride 103, Carbon Dioxide 22, Anion Gap 19, BUN 25 H, Creatinine 1.0, Est GFR ( Amer) > 60, Est GFR ( Non-Af Amer) 57, Random Glucose 205 H, Calcium 10.0, Total Bilirubin 0.5, AST 21 , ALT 36, Alkaline Phosphatase 86, Total Protein 7.4, Albumin 4.2, Globulin 3.3 , Albumin/Globulin Ratio 1.3 06/15/17 07:00: WBC 7.5, RBC 4.99, Hgb 14.8, Hct 43.2, MCV 86.6, MCH 29.7, MCHC 34.3, RDW 13.7, Plt Count 308, MPV 9.4 06/14/17 21:32: POC Glucose (mg/dL) 189 H 06/14/17 16:07: POC Glucose (mg/dL) 191 H 06/14/17 11:12: POC Glucose (mg/dL) 271 H 06/14/17 07:38: POC Glucose (mg/dL) 178 H 06/13/17 21:09: POC Glucose (mg/dL) 240 H 06/13/17 16:28: POC Glucose (mg/dL) 231 H 06/13/17 11:00: Urine Opiates Screen Negative, Urine Methadone Screen Negative, Ur Barbiturates Screen Negative, Ur Phencyclidine Scrn Negative, Ur Amphetamines Screen Negative, U Benzodiazepines Scrn Positive, U Oth Cocaine Metabols Negative, U Cannabinoids Screen Negative 06/13/17 11:00: Urine Color Yellow, Urine Appearance Clear, Urine pH 6.0, Ur Specific [place] >= 1.030, Urine Protein 30 H, Urine Glucose (UA) Negative, Urine Ketones 40 H, Urine Blood Negative, Urine Nitrate Negative, Urine Bilirubin Small H, Urine Urobilinogen 0.2, Ur Leukocyte Esterase Moderate H, Urine RBC Negative, Urine WBC 5 - 10, Ur Epithelial Cells Many, Urine Bacteria Many 06/13/17 08:58: Alcohol, Quantitative < 10 06/13/17 08:58: Salicylates 2, Acetaminophen < 10.0 L 06/13/17 08:58: Sodium 140, Potassium 4.5, Chloride 104, Carbon Dioxide 20 L, Anion Gap 20, BUN 16, Creatinine 0.8, Est GFR ( Amer) > 60, Est GFR (Non- Af Amer) > 60, Random Glucose 248 H, Calcium 10.2, Total Bilirubin 0.5, AST 22, ALT 31, Alkaline Phosphatase 84, Troponin I < 0.01, Total Protein 7.5, Albumin 4.3, Globulin 3.2, Albumin/Globulin Ratio 1.3 06/13/17 08:58: WBC 9.1 D, RBC 4.93, Hgb 14.7 D, Hct 43.0, MCV 87.2, MCH 29.8 , MCHC 34.2, RDW 13.5, Plt Count 279, MPV 9.3, Gran % 71.7 H, Lymph % (Auto) 23.3, [place] % (Auto) 4.4, Eos % (Auto) 0.3 L, Baso % (Auto) 0.3, Gran # 6.55 H, Lymph # (Auto) 2.1, [place] # (Auto) 0.4, Eos # (Auto) 0.0, Baso # (Auto) 0.03 Vital Signs Temp Pulse Resp BP Pulse Ox 06/15/17 08:15 102 H 152/96 H 06/15/17 08:14 102 H 152/96 H 06/15/17 07:02 98.0 F 102 H 20 152/96 H 06/14/17 16:00 99 H 119/80 06/14/17 07:13 97.9 F 98 H 20 121/85 06/13/17 16:30 92 H 124/82 06/13/17 14:11 100 H 16 133/86 96 06/13/17 07:57 98.9 F 115 H 14 124/89 95 DSM 5 Symptoms Update: shortly patient is 56 year old Female, reported h/o schizoaffective disorder, multiple psychiatric admissions, including this facility under 's services, most recent admission was [id number], pt currently attends [facility] IOP program, pt denied h/o suicidal attempts, pt presented with medical complaints in ED, then pt said she feels depressed, and pt reported that she did not want to live, pt said that she was not able to function because of the memory problems, reported to be depressed and hopeless and signed consent for treatment. pt was seen and examined in her room today, poor hygiene, good ADLs, pt is obese , has psychomotor retardation which seems to be worse today, pt was on xanax before, but now it was given as PRN, and pt got only a few doses, pt might have catatonia, will give xanax isidro. pt was c/o nausea and vomiting (unwitnessed), GI saw pt, consult appreciated, pt is on abx for UTI. pt is irritable, on edge, argumentative (as per staff). pt did not want to elaborate on psychotic symptoms, but appears to be internally preoccupied, guarded and paranoid. as per staff pt attends groups, no agitation, no aggression. 06/16/17 Minicog: pt has constructive apraxia, was not able to draw a clock and poor memory and concentration. refused to complete. Impression: schizoaffective disorder Medication Change: Yes (xanax is given as scheduled) Medical Record Reviewed: Yes Consults ordered or reviewed: medical and endocrinology Mental Status Examination - Cognitive Function Orientation: Person Memory: Intact Attention: Poor Concentration: Poor Association: Loose Fund of Knowledge: Poor - Mood Mood: Depressed, Anxious - Affect Affect: Flat - Speech Speech: Soft - Formal Thought Process Formal Thought Process: Hallucinations, Delusions, Paranoia - Suicidal Ideation Suicidal Ideation: No - Homicidal Ideation Homicidal Ideation: No Goal/Treatment Plan - Goal/Treatment Plan Need for Continued Stay: Remain at risks for inpatient hospitalization, Severe depression anxiety, Discharge may exacerbated symptoms, Severe functional impairment Progress Toward Problem(s) and Goals/Treatment Plan: milieu/structure/supportive therapy Amitriptyline d/c Effexor 75mg po bid for depression and anxiety Divalproex [Depakote DR(*BID*)] 1,000 mg PO HS and 500mg am will check depakote level 06/15/ was 46 Insulin NPH Hum/Reg Insulin Ziprasidone 60mg po bid for psychosis and mood stabilization ALPRAZolam [Xanax] 1mg po tid isidro for catatonia and anxiety Tramadol HCl [Ultram] prn as per medical team Medical consult appreciated, see medical team note for more detailed info SW consultation for discharge plan and social issues Family involvement Follow up on labs Will monitor closely Pt was educated about risk/benefits and alternatives of medications, coping strategies (safety plan, suicide prevention), relapse prevention, importance of follow up with psychiatrist and therapist, stay away from drugs/alcohol/smoking Estimated Date of D/C: 06/21/17 (will monitor closely)
[2017-06-17] MEDS: Insulin Detemir 100 units/ml Vial (Levemir) SC SCH (21:31)
[2017-06-18] MEDS: Tmp-Smz 800 mg-160 mg DS Tab PO SCH ×2 (07:18→17:38)
[2017-06-18] MEDS: Pantoprazole 40 mg EC Tab PO SCH (07:18)
[2017-06-18 07:55] LABS: HEMOGLOBIN 14.3 g/dL (12.0-16.0); MEAN CORPUSCULAR HEMOGLOBIN 29.7 pg (25.0-35.0); MEAN CORPUSCULAR HGB CONC 33.3 g/dl (31.0-37.0); MEAN PLATELET VOLUME 10.1 fl (7.0-11.0); RBC 4.82 10^6/uL (3.5-6.1); RED CELL DISTRIBUTION WIDTH 13.8 % (11.5-14.5)
--- NOTE | 2017-06-18 08:36 | PCM.PYCHPN ---
Psychiatric Progress Note - Psychiatric Progress Note Patient seen today, length of contact: 25 min Patient Chief Complaint: "everything is fine" Problems Identified/Issues Discussed: I reviewed assessment and recent notes on the unit. Patient was interviewed next to the nursing station. Her appearance is a little unkempt and affect is anxious, odd and blunt. Nonetheless she is oriented to month, year and location. Communication is more spontaneous than reported yesterday. Patient reports that she is improving and wishes to go home. She states "I don't want to be here anymore, my sister will take care of me". Indicates that "everything is fine" and feels hopeful. She slept well and denies side effects, discomfort or pain. Denies recurrence of abdominal discomfort, nausea or vomiting. Nursing notes indicate that patient has been more quiet and a little less edgy recently. She generally keeps to herself. Refused groups and psycho-social assessment yesterday. Still appears paranoid. There were no major behavioral issues overnight Diagnostic Results: Schizoaffective Disorder Medication Change: Yes (xanax is given as scheduled) Medical Record Reviewed: Yes Mental Status Examination - Cognitive Function Orientation: Person Memory: Intact Attention: Poor Concentration: Poor Association: Loose Fund of Knowledge: Poor - Mood Mood: Depressed ("everything is fine"), Anxious - Affect Affect: Blunted, Flat - Speech Speech: Soft - Formal Thought Process Formal Thought Process: Hallucinations (denies), Delusions (not elicted today), Paranoia - Suicidal Ideation Suicidal Ideation: No - Homicidal Ideation Homicidal Ideation: No Goal/Treatment Plan - Goal/Treatment Plan Need for Continued Stay: Remain at risks for inpatient hospitalization, Severe depression anxiety, Discharge may exacerbated symptoms, Severe functional impairment Progress Toward Problem(s) and Goals/Treatment Plan: c/w current tx and plan No new weekend labs thus far Vitals reviewed and noted below: Selected Entries 06/18/17 06:45 Temperature 99.1 F Pulse Rate 87 Respiratory 16 Rate Blood Pressure 110/63 Estimated Date of D/C: 06/21/17 (will monitor closely)
[2017-06-18] MEDS: POLYETHYLENE GLYCOL 3350 17 GM/Dose PACKET PO SCH ×3 (08:40→16:36)
[2017-06-18] MEDS: Divalproex 500 mg DR(BID formulation) PO SCH ×2 (08:41→21:40)
[2017-06-18] MEDS: diltiaZEM 180 mg/24 Hours CD Cap PO SCH (08:41)
[2017-06-18] MEDS: Psyllium Packet PO SCH ×2 (08:43→09:05)
[2017-06-18] MEDS: Insulin Reg-LOW-Coverage SC SCH ×4 (08:44→21:41)
[2017-06-18 08:55] LABS: ALB/GLOB RATIO 1.4 (1.1-1.8); ALBUMIN 4.1 g/dL (3.0-4.8)
[2017-06-18] MEDS: Insulin Human NPH/Reg 70/30 Vial(3 ml) SC SCH ×2 (08:56→16:38)
[2017-06-18] MEDS: Naproxen 550 mg Tab PO PRN ×2 (10:18→21:45)
[2017-06-18] MEDS ORDERED: Sod Polystyrene Sulf 15 gm/60 ml Susp PO ONE (13:28)
--- NOTE | 2017-06-18 14:42 | CP.PCM.PN ---
<Raquel Rose - Last Filed: 06/18/17 14:38> Subjective - Date & Time of Evaluation Date of Evaluation: 06/18/17 Time of Evaluation: 09:10 - Subjective Subjective: GI Fellow PGY4 Progress Note Pt seen and evaluated at bedside, doing well with no abdominal pain, nausea or vomiting. Pt tolerating diet and with multiple BM since admission. ROS: A 12pt ROS was negative except as above. Objective - Vital Signs/Intake and Output Vital Signs (last 24 hours): Temp Pulse Resp BP Pulse Ox 99.1 F 87 16 110/63 96 06/18/17 06:45 06/18/17 08:42 06/18/17 06:45 06/18/17 08:42 06/13/17 14:11 - Medications Medications: Current Medications Acetaminophen (Tylenol 325mg Tab) 650 mg PO Q4 PRN PRN Reason: Pain, Mild (1-3) Last Admin: 06/14/17 22:00 Dose: 650 mg Al Hydrox/Mg Hydrox/Simethicone (Maalox Plus 30 Ml) 30 ml PO DAILY PRN PRN Reason: Upset Stomach Alprazolam (Xanax) 1 mg PO TID [facility] PRN Reason: Protocol Last Admin: 06/18/17 12:52 Dose: 1 mg Diltiazem HCl (Cardizem Cd) 360 mg PO DAILY [facility] Last Admin: 06/18/17 08:41 Dose: 360 mg Divalproex Sodium (Depakote Dr(*Bid*)) 500 mg PO DAILY [facility] PRN Reason: Protocol Last Admin: 06/18/17 08:41 Dose: 500 mg Divalproex Sodium (Depakote Dr(*Bid*)) 1,000 mg PO HS [facility] PRN Reason: Protocol Last Admin: 06/17/17 21:30 Dose: 1,000 mg Docusate Sodium (Colace) 100 mg PO DAILY [facility] Last Admin: 06/18/17 08:41 Dose: 100 mg Furosemide (Lasix) 40 mg PO DAILY [facility] Last Admin: 06/18/17 08:42 Dose: 40 mg Insulin Detemir (Levemir) 22 unit SC HS [facility] Insulin Human Regular (Humulin R Low) 0 units SC ACHS [facility] PRN Reason: Protocol Last Admin: 06/18/17 12:50 Dose: Not Given Lisinopril (Zestril) 20 mg PO DAILY [facility] Last Admin: 06/18/17 08:42 Dose: 20 mg Magnesium Hydroxide (Milk Of Magnesia) 30 ml PO DAILY PRN PRN Reason: Constipation Last Admin: 06/16/17 20:02 Dose: 30 ml Naproxen (Anaprox Ds) 550 mg PO BID PRN PRN Reason: Pain, severe (8-10) Last Admin: 06/18/17 10:18 Dose: 550 mg Ondansetron HCl (Zofran Tab) 4 mg PO Q8H PRN PRN Reason: Nausea/Vomiting Last Admin: 06/16/17 20:33 Dose: 4 mg Pantoprazole Sodium (Protonix Ec Tab) 40 mg PO 0600 [facility] Last Admin: 06/18/17 07:18 Dose: 40 mg Polyethylene Glycol (Miralax) 17 gm PO BID [facility] Last Admin: 06/18/17 09:05 Dose: Not Given Psyllium Hydrophilic Mucilloid (Hydrocil Instant) 1 pkt PO DAILY [facility] Last Admin: 06/18/17 09:05 Dose: Not Given Trimethoprim/Sulfamethoxazole (Bactrim Ds Tab) 1 tab PO Q12 [facility] Last Admin: 06/18/17 07:18 Dose: 1 tab Venlafaxine HCl (Effexor) 75 mg PO BID [facility] Last Admin: 06/18/17 08:39 Dose: 75 mg Zaleplon (Sonata) 5 mg PO HS [facility] Last Admin: 06/17/17 22:00 Dose: Not Given Ziprasidone (Geodon Cap) 60 mg PO AMHS [facility] PRN Reason: Protocol Last Admin: 06/18/17 10:09 Dose: 60 mg - Labs Labs: 06/18/17 07:00 06/18/17 07:00 - Constitutional Appears: Non-toxic, In Acute Distress - Head Exam Head Exam: ATRAUMATIC, NORMAL INSPECTION, NORMOCEPHALIC - Eye Exam Eye Exam: EOMI, Normal appearance Pupil Exam: PERRL - ENT Exam ENT Exam: Mucous Membranes Moist - Respiratory Exam Respiratory Exam: Clear to Ausculation Bilateral, NORMAL BREATHING PATTERN - Cardiovascular Exam Cardiovascular Exam: REGULAR RHYTHM - GI/Abdominal Exam GI & Abdominal Exam: Soft, Normal Bowel Sounds. absent: Distended, Rigid, Tenderness - Extremities Exam Extremities Exam: Normal Inspection - Neurological Exam Neurological Exam: Alert, Awake, Oriented x3 - Psychiatric Exam Psychiatric exam: Normal Affect, Normal Mood - Skin Skin Exam: Dry, Intact, Normal Color, Warm Assessment and Plan - Assessment and Plan (Free Text) Assessment: Patient is a 56 y/o with PMHx of DM, HTN, UTI, CAD, and schizoaffective disorder who initially presented with depression, and GI is being consulted for nausea, vomiting and constipation. 1. Nausea/vomiting and abdominal pain- resolved 2. Constipation 3. DM 4. HTN 5. CAD 6. Schizoaffective disorder Plan: -Continue supportive care -Continue miralax 17 mg bid -Continue Colace -Continue protonix -Regular diet -TSH wnl -Please call with any questions or concerns <Gulshan Sadler MD - Last Filed: 06/18/17 16:57> Objective - Vital Signs/Intake and Output Vital Signs (last 24 hours): Temp Pulse Resp BP Pulse Ox 99.1 F 87 16 110/63 96 06/18/17 06:45 06/18/17 08:42 06/18/17 06:45 06/18/17 08:42 06/13/17 14:11 - Medications Medications: Current Medications Acetaminophen (Tylenol 325mg Tab) 650 mg PO Q4 PRN PRN Reason: Pain, Mild (1-3) Last Admin: 06/14/17 22:00 Dose: 650 mg Al Hydrox/Mg Hydrox/Simethicone (Maalox Plus 30 Ml) 30 ml PO DAILY PRN PRN Reason: Upset Stomach Alprazolam (Xanax) 1 mg PO TID [facility] PRN Reason: Protocol Last Admin: 06/18/17 12:52 Dose: 1 mg Diltiazem HCl (Cardizem Cd) 360 mg PO DAILY [facility] Last Admin: 06/18/17 08:41 Dose: 360 mg Divalproex Sodium (Depakote Dr(*Bid*)) 500 mg PO DAILY [facility] PRN Reason: Protocol Last Admin: 06/18/17 08:41 Dose: 500 mg Divalproex Sodium (Depakote Dr(*Bid*)) 1,000 mg PO HS [facility] PRN Reason: Protocol Last Admin: 06/17/17 21:30 Dose: 1,000 mg Docusate Sodium (Colace) 100 mg PO DAILY [facility] Last Admin: 06/18/17 08:41 Dose: 100 mg Furosemide (Lasix) 40 mg PO DAILY [facility] Last Admin: 06/18/17 08:42 Dose: 40 mg Insulin Detemir (Levemir) 22 unit SC [facility] Insulin Human Regular (Humulin R Low) 0 units SC [facility] PRN Reason: Protocol Last Admin: 06/18/17 16:31 Dose: Not Given Lisinopril (Zestril) 20 mg PO DAILY [facility] Last Admin: 06/18/17 08:42 Dose: 20 mg Magnesium Hydroxide (Milk Of Magnesia) 30 ml PO DAILY PRN PRN Reason: Constipation Last Admin: 06/16/17 20:02 Dose: 30 ml Naproxen (Anaprox Ds) 550 mg PO BID PRN PRN Reason: Pain, severe (8-10) Last Admin: 06/18/17 10:18 Dose: 550 mg Ondansetron HCl (Zofran Tab) 4 mg PO Q8H PRN PRN Reason: Nausea/Vomiting Last Admin: 06/16/17 20:33 Dose: 4 mg Pantoprazole Sodium (Protonix Ec Tab) 40 mg PO 0600 [facility] Last Admin: 06/18/17 07:18 Dose: 40 mg Polyethylene Glycol (Miralax) 17 gm PO BID [facility] Last Admin: 06/18/17 16:36 Dose: 17 gm Psyllium Hydrophilic Mucilloid (Hydrocil Instant) 1 pkt PO DAILY [facility] Last Admin: 06/18/17 09:05 Dose: Not Given Trimethoprim/Sulfamethoxazole (Bactrim Ds Tab) 1 tab PO Q12 [facility] Last Admin: 06/18/17 07:18 Dose: 1 tab Venlafaxine HCl (Effexor) 75 mg PO BID [facility] Last Admin: 06/18/17 16:39 Dose: 75 mg Zaleplon (Sonata) 5 mg PO [facility] Last Admin: 06/17/17 22:00 Dose: Not Given Ziprasidone (Geodon Cap) 60 mg PO [facility] PRN Reason: Protocol Last Admin: 06/18/17 10:09 Dose: 60 mg - Labs Labs: 06/18/17 07:00 06/18/17 07:00 Attending/Attestation - Attestation I have personally seen and examined this patient.: Yes I have fully participated in the care of the patient.: Yes I have reviewed all pertinent clinical information, including history, physical exam and plan: Yes Notes (Text): 06/18/17 16:56 This is a 56 y/o with PMHx of DM, HTN, UTI, CAD, and schizoaffective disorder who initially presented with depression, and GI is being consulted for nausea, vomiting and constipation. She wsa started on colace and miralax and she has had 2 bowel movements since then with symptoms resolving. Continue daily laxatives. Regular diet. TSH wnl.
--- NOTE | 2017-06-18 17:45 | PN ---
DATE: ENDOCRINOLOGY FOLLOWUP NOTE LOCATION: Room 513, Psychiatry. SUBJECTIVE: This is a 56-year-old female with recent uncontrolled type 2 insulin-requiring diabetes, now being followed closely for metabolic management. Her glycemic levels are fluctuating, but improved and the latest glucose levels have ranged from 169 to 198 mg/dL. Her latest chemistries showed a BUN of 29, sodium 136, potassium 5.4, chloride 95, CO2 of 27, glucose 195, and creatinine 1.2. So, at this time, we will continue the same basal and premixed insulin regimen as given with Humulin 70/30 given as 30 units before breakfast and 20 units before dinner as ordered. We will also titrate the Levemir to 20 units subcu at bedtime daily to start tonight. We will continue the low-dose correction scale using Humalog insulin as given. We will follow and advise accordingly. Lorri Cao MD
--- NOTE | 2017-06-18 19:12 | PN ---
DATE: SUBJECTIVE: I saw her in the Psychiatric unit. She tells me she is feeling better, had bowel movements, doing better. MEDICATIONS: She is on Anaprox, Bactrim for UTI. She has Cardizem, Colace, Depakote, Effexor, Geodon, insulin, HydroDIURIL, Lasix, Levemir, MiraLax, milk of magnesia, Protonix, Sonata, Tylenol, Xanax, Zestril and Zofran. PHYSICAL EXAMINATION: VITAL SIGNS: She has a 99.1 temperature, 87 pulse, 110/63 blood pressure, 16 respiratory rate. HEENT: Head is atraumatic and normocephalic. HEART: Regular rate. LUNGS: Clear to auscultation. ABDOMEN: Soft, obese. EXTREMITIES: No edema. NEUROLOGIC: She is comfortable, talking better, more alert, calm. LABORATORY DATA: White count 8, hemoglobin 14.3, hematocrit 42.9, with platelets of 322. Sodium 136 and potassium 5.4. We will give her a dose of Kayexalate today 15 g. BUN 29, creatinine 1.2, GFR is 46, sugar is 195, calcium is 10, total bili is 0.5, AST is 14, ALT is 26, alk phos 80, total protein 6.9. Urine with many. ASSESSMENT AND PLAN: She is being seen by Psychiatry and Gastroenterology. She has multiple issues with depression, diabetes, UTI, constipation, CHF, confusion, nausea, vomiting. I will give her some Kayexalate to elevate her potassium. I am going to check her labs tomorrow. Adjust her diabetes meds. We will continue to follow. Darek Ramirez DO
[2017-06-18] MEDS ORDERED: Insulin Detemir 100 units/ml Vial (Levemir) SC SCH ×2 (22:00)
[2017-06-19] MEDS: Tmp-Smz 800 mg-160 mg DS Tab PO SCH ×2 (06:21→17:54)
[2017-06-19] MEDS: Pantoprazole 40 mg EC Tab PO SCH (06:21)
[2017-06-19 08:12] LABS: HEMOGLOBIN 13.8 g/dL (12.0-16.0); MEAN CELL VOLUME 87.9 fl (80.0-105.0); MEAN CORPUSCULAR HEMOGLOBIN 29.9 pg (25.0-35.0); MEAN CORPUSCULAR HGB CONC 34.1 g/dl (31.0-37.0); MEAN PLATELET VOLUME 9.8 fl (7.0-11.0); RBC 4.61 10^6/uL (3.5-6.1); RED CELL DISTRIBUTION WIDTH 13.6 % (11.5-14.5)
[2017-06-19 08:32] LABS: ALB/GLOB RATIO 1.3 (1.1-1.8); ALBUMIN 3.6 g/dL (3.0-4.8); CALCIUM 9.6 mg/dL (8.4-10.5)
[2017-06-19] MEDS: Insulin Human NPH/Reg 70/30 Vial(3 ml) SC SCH ×2 (08:35→16:44)
[2017-06-19] MEDS: diltiaZEM 180 mg/24 Hours CD Cap PO SCH (08:37)
[2017-06-19] MEDS: POLYETHYLENE GLYCOL 3350 17 GM/Dose PACKET PO SCH ×3 (08:37→17:51)
[2017-06-19] MEDS: Divalproex 500 mg DR(BID formulation) PO SCH ×2 (08:39→21:16)
[2017-06-19] MEDS: Psyllium Packet PO SCH ×2 (08:43→08:54)
[2017-06-19] MEDS: Insulin Reg-LOW-Coverage SC SCH ×4 (08:43→21:41)
[2017-06-19] MEDS ORDERED: Insulin Detemir 100 units/ml Vial (Levemir) SC SCH (10:38)
--- NOTE | 2017-06-19 14:59 | PN ---
DATE: SUBJECTIVE: I saw her in her room this morning in the psych floor. She had asked me to go home. I asked if she has taken medications, she said "yes", but the nurses said she is refusing them. MEDICATIONS: She is on Anaprox, Bactrim, Cardizem, Colace, Depakote, Effexor, Geodon, insulin, Lasix, Levemir, Maalox, milk of magnesia, MiraLax, Protonix, Sonata, Tylenol, Xanax, Zestril, and Zofran. PHYSICAL EXAMINATION VITAL SIGNS: She has a 98.6 temperature, 92 pulse, 132/72 blood pressure, 20 respiratory rate. HEENT: Head is atraumatic, normocephalic. Throat is moist. NECK: Supple. HEART: Regular rate. LUNGS: Decreased breath sounds, but clear. ABDOMEN: Obese, nontender. Positive bowel sounds. EXTREMITIES: Have no edema. DATA: White count 13.8 hemoglobin, 40.5 hematocrit with 275,000 platelets. Sodium 133, potassium 4.7, BUN is 32, creatinine is 1.2. We asked her to drink more water. She has a GFR of 46, sugar is 192, calcium is 9.6, total bilirubin is 0.4, AST is 15, ALT is 24, alkaline phosphatase 76, total protein 6.5. The last few blood sugars have been in the 100s except for one of 204. She did have urinary tract infection. She is here for depression, suicidal ideation, diabetes, UTI, hypertension, CHF, confusion, nausea and vomiting, constipation. She has been seen by GI, Psychiatry, Endocrinology, GI. continue with 17 mg of MiraLax twice a day, I will increase her Levemir 24 units and slowly increase, she is trying to get all the numbers in the 100s and slowly coming down. Continue with aggressive psychiatric care. Check her labs tomorrow. Encouraged to take the medications, drink more water. Darek Ramirez DO YAN
--- NOTE | 2017-06-19 16:03 | PCM.PYCHPN ---
Psychiatric Progress Note - Psychiatric Progress Note Patient seen today, length of contact: 25 min Patient Chief Complaint: "everything is fine" Problems Identified/Issues Discussed: I reviewed recent notes on the unit and patient was interviewed at bedside. Her appearance remains unkempt and affect is little less anxious today but still oddly related. Oriented x3. Communication continues to be more spontaneous than reported on Tuesday. Patient still feels that she is improving and wishes to go home. Indicates everything is fine and flatly reports that she feels hopeful. She slept well and denies side effects, discomfort or pain. Denies recurrence of abdominal discomfort, nausea or vomiting. Nursing notes indicate that patient has been more quiet and a little less edgy recently. She generally keeps to herself but is more visible on the unit. Refused groups and psycho-social assessment on Tuesday. She was also upset about her missing purse and house keys yesterday. They were never listed with her property. There were no major behavioral issues over the weekend Diagnostic Results: Schizoaffective Disorder Medication Change: Yes (xanax is given as scheduled) Medical Record Reviewed: Yes Mental Status Examination - Cognitive Function Orientation: Person Memory: Intact Attention: Poor Concentration: Poor Association: Loose Fund of Knowledge: Poor - Mood Mood: Depressed ("everything is fine"), Anxious - Affect Affect: Blunted, Flat - Speech Speech: Soft - Formal Thought Process Formal Thought Process: Hallucinations (denies), Delusions (not elicted today), Paranoia - Suicidal Ideation Suicidal Ideation: No - Homicidal Ideation Homicidal Ideation: No Goal/Treatment Plan - Goal/Treatment Plan Need for Continued Stay: Remain at risks for inpatient hospitalization, Severe depression anxiety, Discharge may exacerbated symptoms, Severe functional impairment Progress Toward Problem(s) and Goals/Treatment Plan: c/w current tx and plan Appreciate f/u by Dr. Cao on 06/18/17~titrating Levemir Appreciate f/u by Dr. Ramirez on 06/18/17~adding Kayexalate and checking labs Appreciate f/u by Dr. Sadler/Dr. Rose on 06/18/17~thus far GI symptoms have resolved Vitals reviewed and noted below: Selected Entries 06/19/17 06/19/17 06/19/17 07:18 08:37 08:38 Temperature 98.6 F Pulse Rate 92 H 92 H 92 H Respiratory 20 Rate Blood Pressure 132/72 132/72 132/72 06/19/17 08:39 Temperature Pulse Rate Respiratory Rate Blood Pressure 132/72 New weekend labs noted below: Laboratory Results - last 24 hr 06/18/17 06/19/17 06/19/17 21:22 07:00 07:00 WBC 7.0 RBC 4.61 Hgb 13.8 Hct 40.5 MCV 87.9 MCH 29.9 MCHC 34.1 RDW 13.6 Plt Count 275 MPV 9.8 Sodium 133 Potassium 4.7 Chloride 97 L Carbon Dioxide 24 Anion Gap 17 BUN 32 H Creatinine 1.2 Est GFR ( Amer) 56 Est GFR (Non-Af Amer) 46 POC Glucose (mg/dL) 176 H Random Glucose 204 H Calcium 9.6 Total Bilirubin 0.4 AST 15 ALT 24 Alkaline Phosphatase 76 Total Protein 6.5 Albumin 3.6 Globulin 2.8 Albumin/Globulin Ratio 1.3 06/19/17 06/19/17 07:23 11:13 WBC RBC Hgb Hct MCV MCH MCHC RDW Plt Count MPV Sodium Potassium Chloride Carbon Dioxide Anion Gap BUN Creatinine Est GFR ( Amer) Est GFR (Non-Af Amer) POC Glucose (mg/dL) 192 H 205 H Random Glucose Calcium Total Bilirubin AST ALT Alkaline Phosphatase Total Protein Albumin Globulin Albumin/Globulin Ratio Estimated Date of D/C: 06/21/17 (will monitor closely)
--- NOTE | 2017-06-19 17:46 | PN ---
DATE: ENDOCRINOLOGY FOLLOWUP NOTE LOCATION: In room 513 Psychiatry. SUBJECTIVE: This is a 56-year-old female with recent generalized anxiety and depression, currently followed closely in the psychiatric unit and is also being followed for metabolic management. Her glycemic levels are fluctuating, but improved and have ranged from 192-205 mg/dL. Her latest chemistry showed a BUN of 32, sodium 133, potassium 4.7, chloride 97, CO2 of 24, glucose 204 and creatinine of 1.2. So at this time, we will continue the same basal and premixed insulin regimen as ordered and continue the Humulin 70/30 at 30 units before breakfast and 20 units before dinner as ordered. We will increase the Levemir to 26 units subcu at bedtime daily as given. We will titrate incrementally as indicated to optimize metabolic control. We will follow with you. Lorri Cao MD
[2017-06-19] MEDS: Insulin Detemir 100 units/ml Vial (Levemir) SC SCH (21:41)
[2017-06-20] MEDS: Pantoprazole 40 mg EC Tab PO SCH (06:49)
[2017-06-20] MEDS: Tmp-Smz 800 mg-160 mg DS Tab PO SCH ×2 (06:49→17:12)
[2017-06-20] MEDS: Insulin Reg-LOW-Coverage SC SCH ×4 (08:13→22:33)
[2017-06-20] MEDS: diltiaZEM 180 mg/24 Hours CD Cap PO SCH (09:05)
[2017-06-20] MEDS: Divalproex 500 mg DR(BID formulation) PO SCH ×2 (09:06→21:40)
[2017-06-20] MEDS: POLYETHYLENE GLYCOL 3350 17 GM/Dose PACKET PO SCH ×2 (09:07→17:10)
[2017-06-20] MEDS: Insulin Human NPH/Reg 70/30 Vial(3 ml) SC SCH ×2 (09:08→17:10)
[2017-06-20] MEDS: Psyllium Packet PO SCH (09:09)
--- NOTE | 2017-06-20 09:35 | PN ---
DATE: 06/17/2017 ENDOCRINOLOGY FOLLOWUP NOTE LOCATION: Room 508, Psychiatry. SUBJECTIVE: This is a 56-year-old female with recent uncontrolled type 2 insulin-requiring diabetes, now being followed closely for metabolic management. Her glycemic levels are fluctuating, but improved and the glucose values today have ranged from 228-230 and 335 mg/dL. So at this time, we will continue the same premixed insulin regimen with Humulin 70/30 given as 30 units before breakfast and 20 units before dinner as ordered. We will increase the Levemir to 20 units subcu at bedtime daily as ordered. We will titrate incrementally as indicated to optimize metabolic control. We will follow. Lorri Cao MD
[2017-06-20 09:58] LABS: HEMOGLOBIN 14.6 g/dL (12.0-16.0); MEAN CORPUSCULAR HEMOGLOBIN 29.7 pg (25.0-35.0); MEAN CORPUSCULAR HGB CONC 33.4 g/dl (31.0-37.0); MEAN PLATELET VOLUME 10.4 fl (7.0-11.0); RBC 4.91 10^6/uL (3.5-6.1); RED CELL DISTRIBUTION WIDTH 13.5 % (11.5-14.5); WHITE BLOOD COUNT 7.2 10^3/ul (4.5-11.0)
[2017-06-20 10:10] LABS: ALB/GLOB RATIO 1.4 (1.1-1.8); ALBUMIN 4.1 g/dL (3.0-4.8); CALCIUM 9.7 mg/dL (8.4-10.5)
--- NOTE | 2017-06-20 12:51 | PN ---
DATE: SUBJECTIVE: She is resting comfortably in chair. She is very alert. She slept well. She is eating okay. No complaints of chest pain or shortness of breath. No abdominal pain. She is feeling better mentally. She is on Anaprox, Bactrim, Cardizem, Colace, Depakote, Effexor, Geodon, insulin, HydroDIURIL, Lasix, Levemir, Maalox, milk of magnesia, MiraLax, Protonix, Sonata, Tylenol, Xanax, Zestril and Zofran. PHYSICAL EXAMINATION: VITAL SIGNS: 98.1 temperature, 71 pulse, 110/60 blood pressure, 20 respiratory rate. HEENT: Head is atraumatic, normocephalic. HEART: Regular rate. LUNGS: Clear to auscultation. ABDOMEN: Soft, obese. EXTREMITIES: Trace edema. LABORATORY DATA: She has 7 white count, 13.8 hemoglobin, 40.5 hematocrit with 275 platelets. 133 sodium, potassium 4.7, BUN 32, creatinine 1.2, GFR is 46, blood sugar was 94, calcium 9.6. Total bili is 0.4, AST is 15, ALT is 24, alk phos 76, total protein 6.5. She is being treated for urinary tract infection. She is being seen by Endocrinology, GI, Psychiatry. She has depression, suicidal ideation, diabetes, UTI, hypertension, CHF, constipation, confusion, nausea, vomiting. Darek Ramirez DO
--- NOTE | 2017-06-20 15:13 | PCM.PYCHPN ---
Psychiatric Progress Note - Psychiatric Progress Note Patient seen today, length of contact: 30min Patient Chief Complaint: "I want to stay with my sister after discharge" Problems Identified/Issues Discussed: Suicide/ homicide prevention, past psychiatric h/o, current psychiatric symptoms , medical problems, risk/benefits and alternatives of medications, medications compliance, coping strategies, substance abuse h/o, relapse prevention, importance of follow up with psychiatrist and therapist, discharge plan. Medical Problems: see HPI medical team saw pt, pt has UTI, was started on abx Medical Office Receptionist saw pt Diagnostic Results: 06/15/17 07:00 06/15/17 07:00 Lab Results 06/15/17 11:09: POC Glucose (mg/dL) 289 H 06/15/17 07:10: POC Glucose (mg/dL) 207 H 06/15/17 07:00: Valproic Acid 46 L 06/15/17 07:00: Sodium 140, Potassium 4.8, Chloride 103, Carbon Dioxide 22, Anion Gap 19, BUN 25 H, Creatinine 1.0, Est GFR ( Amer) > 60, Est GFR ( Non-Af Amer) 57, Random Glucose 205 H, Calcium 10.0, Total Bilirubin 0.5, AST 21 , ALT 36, Alkaline Phosphatase 86, Total Protein 7.4, Albumin 4.2, Globulin 3.3 , Albumin/Globulin Ratio 1.3 06/15/17 07:00: WBC 7.5, RBC 4.99, Hgb 14.8, Hct 43.2, MCV 86.6, MCH 29.7, MCHC 34.3, RDW 13.7, Plt Count 308, MPV 9.4 06/14/17 21:32: POC Glucose (mg/dL) 189 H 06/14/17 16:07: POC Glucose (mg/dL) 191 H 06/14/17 11:12: POC Glucose (mg/dL) 271 H 06/14/17 07:38: POC Glucose (mg/dL) 178 H 06/13/17 21:09: POC Glucose (mg/dL) 240 H 06/13/17 16:28: POC Glucose (mg/dL) 231 H 06/13/17 11:00: Urine Opiates Screen Negative, Urine Methadone Screen Negative, Ur Barbiturates Screen Negative, Ur Phencyclidine Scrn Negative, Ur Amphetamines Screen Negative, U Benzodiazepines Scrn Positive, U Oth Cocaine Metabols Negative, U Cannabinoids Screen Negative 06/13/17 11:00: Urine Color Yellow, Urine Appearance Clear, Urine pH 6.0, Ur Specific [place] >= 1.030, Urine Protein 30 H, Urine Glucose (UA) Negative, Urine Ketones 40 H, Urine Blood Negative, Urine Nitrate Negative, Urine Bilirubin Small H, Urine Urobilinogen 0.2, Ur Leukocyte Esterase Moderate H, Urine RBC Negative, Urine WBC 5 - 10, Ur Epithelial Cells Many, Urine Bacteria Many 06/13/17 08:58: Alcohol, Quantitative < 10 06/13/17 08:58: Salicylates 2, Acetaminophen < 10.0 L 06/13/17 08:58: Sodium 140, Potassium 4.5, Chloride 104, Carbon Dioxide 20 L, Anion Gap 20, BUN 16, Creatinine 0.8, Est GFR ( Amer) > 60, Est GFR (Non- Af Amer) > 60, Random Glucose 248 H, Calcium 10.2, Total Bilirubin 0.5, AST 22, ALT 31, Alkaline Phosphatase 84, Troponin I < 0.01, Total Protein 7.5, Albumin 4.3, Globulin 3.2, Albumin/Globulin Ratio 1.3 06/13/17 08:58: WBC 9.1 D, RBC 4.93, Hgb 14.7 D, Hct 43.0, MCV 87.2, MCH 29.8 , MCHC 34.2, RDW 13.5, Plt Count 279, MPV 9.3, Gran % 71.7 H, Lymph % (Auto) 23.3, [place] % (Auto) 4.4, Eos % (Auto) 0.3 L, Baso % (Auto) 0.3, Gran # 6.55 H, Lymph # (Auto) 2.1, [place] # (Auto) 0.4, Eos # (Auto) 0.0, Baso # (Auto) 0.03 Vital Signs Temp Pulse Resp BP Pulse Ox 06/15/17 08:15 102 H 152/96 H 06/15/17 08:14 102 H 152/96 H 06/15/17 07:02 98.0 F 102 H 20 152/96 H 06/14/17 16:00 99 H 119/80 06/14/17 07:13 97.9 F 98 H 20 121/85 02/05/18 16:30 92 H 124/82 06/13/17 14:11 100 H 16 133/86 96 06/13/17 07:57 98.9 F 115 H 14 124/89 95 Laboratory Results - last 24 hr 06/19/17 06/19/17 06/20/17 15:56 21:06 07:11 WBC RBC Hgb Hct MCV MCH MCHC RDW Plt Count MPV Sodium Potassium Chloride Carbon Dioxide Anion Gap BUN Creatinine Est GFR ( Amer) Est GFR (Non-Af Amer) POC Glucose (mg/dL) 149 H 236 H 94 Random Glucose Calcium Total Bilirubin AST ALT Alkaline Phosphatase Total Protein Albumin Globulin Albumin/Globulin Ratio 06/20/17 06/20/17 06/20/17 09:30 09:30 11:01 WBC 7.2 RBC 4.91 Hgb 14.6 Hct 43.7 MCV 89.0 MCH 29.7 MCHC 33.4 RDW 13.5 Plt Count 278 MPV 10.4 Sodium 134 Potassium 5.4 H Chloride 98 Carbon Dioxide 22 Anion Gap 20 BUN 32 H Creatinine 1.2 Est GFR ( Amer) 56 Est GFR (Non-Af Amer) 46 POC Glucose (mg/dL) 259 H Random Glucose 220 H Calcium 9.7 Total Bilirubin 0.3 AST 15 ALT 21 Alkaline Phosphatase 74 Total Protein 7.1 Albumin 4.1 Globulin 3.0 Albumin/Globulin Ratio 1.4 Temp Pulse Resp BP Pulse Ox 98.1 F 71 20 110/60 96 06/20/17 07:16 06/20/17 09:06 06/20/17 07:16 06/20/17 09:07 06/13/17 14:11 DSM 5 Symptoms Update: shortly patient is 56 year old Female, reported h/o schizoaffective disorder, multiple psychiatric admissions, including this facility under 's services, most recent admission was [id number], pt currently attends [facility] IOP program, pt denied h/o suicidal attempts, pt presented with medical complaints in ED, then pt said she feels depressed, and pt reported that she did not want to live, pt said that she was not able to function because of the memory problems, reported to be depressed and hopeless and signed consent for treatment. pt was seen and examined at the treatment team room, poor hygiene, good ADLs, pt is obese, has psychomotor retardation but some improvement, pt is less irritable, more pleasant, said that she was bored over the weekend. pt said she wants to stay in her sister's house. pt gave permission to speak to her sister over the phone. Mallory [phone]. as per pt's sister, pt may stay with her, sister said "Anna Marie sounds not confused anymore". as per sister pt does not know where is her pocketbook and she is not sure where are pt's keys. as per staff pt's pocketbook was not listed on her belongings list upon admission. as per staff pt does not have any aggressive or agitated behavior, but has some space for improvement. pt has h/o being admitted to this unit pt deems not ready for d/c at least today. Pt was advised to take a shower, as per staff pt is careless about her appearance. pt tolerates meds well, no side effects observed or reported. AIMS 0, no EPS. Impression: schizoaffective disorder Medication Change: Yes (xanax increased, effexor given as XR) Medical Record Reviewed: Yes Consults ordered or reviewed: medical and endocrinology Mental Status Examination - Cognitive Function Orientation: Person Memory: Intact Attention: Poor (some improvement) Concentration: Poor (some improvement) Association: WNL Fund of Knowledge: WNL - Mood Mood: Depressed ("everything is fine"), Anxious - Affect Affect: Blunted, Flat - Speech Speech: Soft - Formal Thought Process Formal Thought Process: Hallucinations (denies), Delusions (not elicted today), Paranoia - Suicidal Ideation Suicidal Ideation: No - Homicidal Ideation Homicidal Ideation: No Goal/Treatment Plan - Goal/Treatment Plan Need for Continued Stay: Remain at risks for inpatient hospitalization, Severe depression anxiety, Discharge may exacerbated symptoms, Severe functional impairment Progress Toward Problem(s) and Goals/Treatment Plan: milieu/structure/supportive therapy Amitriptyline d/c Effexor 150mg ER for depression and anxiety Divalproex [Depakote DR(*BID*)] 1,000 mg PO HS and 500mg am will check depakote level tomorrow, most recent was 46 Insulin NPH Hum/Reg Insulin Ziprasidone 60mg po bid for psychosis and mood stabilization ALPRAZolam [Xanax] 1mg po qid isidro for catatonia and anxiety Tramadol HCl [Ultram] prn as per medical team Medical consult appreciated, see medical team note for more detailed info SW consultation for discharge plan and social issues Family involvement Follow up on labs Will monitor closely Pt was educated about risk/benefits and alternatives of medications, coping strategies (safety plan, suicide prevention), relapse prevention, importance of follow up with psychiatrist and therapist, stay away from drugs/alcohol/smoking Estimated Date of D/C: 06/21/17 (will monitor closely)
[2017-06-20] MEDS: Insulin Detemir 100 units/ml Vial (Levemir) SC SCH (21:42)
[2017-06-20] MEDS: Naproxen 550 mg Tab PO PRN (21:43)
--- NOTE | 2017-06-21 00:08 | PN ---
DATE: ENDOCRINOLOGY FOLLOWUP NOTE LOCATION: Room 513, Psychiatry. SUBJECTIVE: This is a 56-year-old female with recent uncontrolled type 2 insulin-requiring diabetes, now being followed closely for metabolic management. Her glycemic levels are fluctuating, but improved and the glucose values have ranged from 94-236 mg/dL. Her latest chemistry showed a BUN of 32, sodium 134, potassium 5.4, chloride 96, CO2 of 22, glucose 220 and creatinine 1.2. So at this time, we will continue the same premixed and basal insulin as ordered with Humulin 70/30 given as 30 units before breakfast and 20 units before dinner as ordered. We will continue the Levemir given as 26 units subcu at bedtime daily as given. We will titrate incrementally as indicated to optimize metabolic control. We will follow. Lorri Cao MD
[2017-06-21] MEDS: Tmp-Smz 800 mg-160 mg DS Tab PO SCH (06:39)
[2017-06-21] MEDS: Pantoprazole 40 mg EC Tab PO SCH (06:40)
[2017-06-21 07:04] VITALS: BP 107/59; PULSE 71; RESP 16; TEMP 98
[2017-06-21] MEDS ORDERED: Venlafaxine 75 mg ER Cap PO SCH (08:00)
[2017-06-21] MEDS: Insulin Reg-LOW-Coverage SC SCH ×2 (08:53→13:28)
[2017-06-21] MEDS: diltiaZEM 180 mg/24 Hours CD Cap PO SCH (09:08)
[2017-06-21] MEDS: Divalproex 500 mg DR(BID formulation) PO SCH (09:09)
[2017-06-21] MEDS: Insulin Human NPH/Reg 70/30 Vial(3 ml) SC SCH (09:11)
[2017-06-21] MEDS: Psyllium Packet PO SCH (09:12)
[2017-06-21] MEDS: POLYETHYLENE GLYCOL 3350 17 GM/Dose PACKET PO SCH (09:12)
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
--- NOTE | 2017-06-21 15:29 | PN ---
DATE: SUBJECTIVE: I saw her in the psychiatric floor. She is feeling well, doing well. No complaints. She tells me she is going home today. She is on Anaprox, Bactrim, Cardizem, Colace, Depakote, Effexor, Geodon, insulin, HydroDIURIL, Lasix, Levemir, Maalox, milk of magnesia, MiraLax, Protonix, Sonata, Tylenol, Xanax, Zestril, and Zofran. PHYSICAL EXAMINATION VITAL SIGNS: She has a 98 temperature, 71 pulse, 107/59 blood pressure, 16 respiratory rate. HEENT: Head is atraumatic, normocephalic. HEART: Regular rate. LUNGS: Clear to auscultation. ABDOMEN: Soft, obese. EXTREMITIES: No edema. She is doing well. Hopefully, she will continue to improve. I will see her in a week in my office she has improved psychologically. Darek Ramirez DO MTDD
[2017-06-21] MEDS ORDERED: Insulin Human NPH/Reg 70/30 Vial(3 ml) SC SCH (16:30)
--- NOTE | 2017-06-21 23:17 | PN ---
ENDOCRINOLOGY FOLLOWUP NOTE DATE: LOCATION: In room 513 SUBJECTIVE: This is a 56-year-old female with recent uncontrolled type 2 insulin-requiring diabetes, now being followed closely for metabolic management. Her glycemic levels are fluctuating, but improved and latest chemistry showed a BUN of 32, sodium 134, potassium 5.4, chloride 98, CO2 of 22, glucose 220, and creatinine 1.2. Her glucose levels are still fluctuating ranging from 136 to 231 mg/dL. So, at this time, we will modify her premixed insulin regimen and increase the Humulin 70/30 to 34 units before breakfast and 24 units before dinner as ordered. We will also continue the Levemir given as 26 units subcutaneously at bedtime daily as given. We will titrate incremental as indicated to optimize metabolic control. We will obtain serial chemistries and supplement accordingly as needed. We will follow. Lorri Cao MD
[2017-06-22] MEDS ORDERED: Insulin Human NPH/Reg 70/30 Vial(3 ml) SC SCH (07:30)
== END 2017-06-21 16:26 | disposition home or self-care (01) | DRG 430 ==
LOC: ED 08:02 → ERH 13:29 → PSYC 14:47
PROVIDERS: ADMIT Psychiatry & Neurology Psychiatry; ATTEND Psychiatry & Neurology Psychiatry
PROC: GZ3ZZZZ Medication Management (ICD-10-PCS; principal; 2017-06-13)
DX: F25.9 Schizoaffective disorder, unspecified (principal); E11.65 Type 2 diabetes mellitus with hyperglycemia; R45.851 Suicidal ideations; I50.9 Heart failure, unspecified; I11.0 Hypertensive heart disease with heart failure; N39.0 Urinary tract infection, site not specified; F41.1 Generalized anxiety disorder; K21.9 Gastro-esophageal reflux disease without esophagitis; I25.10 Atherosclerotic heart disease of native coronary artery without angina pectoris; F17.210 Nicotine dependence, cigarettes, uncomplicated; K59.00 Constipation, unspecified; E66.9 Obesity, unspecified; Z68.41 Body mass index [BMI] 40.0-44.9, adult; Z79.4 Long term (current) use of insulin

== ENCOUNTER 2017-06-30 12:53 | Inpatient (IN) | payer MEDICAID ==
--- NOTE | 2017-06-30 13:09 | ED PDOC ---
Arrival/HPI - General Time Seen by Provider: 06/30/17 12:59 Historian: Patient, Family - History of Present Illness Narrative History of Present Illness (Text): 06/30/17 13:09 A 56 year old female, whose past medical history includes schizophreania, hypertension and CAD, presents to the emergency department accompanied by family for psychiatric evaluation. Patient reports she feels confused and delusional. Family reports patient mentioned wanting to harm herself. Patient denies any fever, chills, nausea, vomiting, abdominal pain, chest pain, shortness of breath, homicidal ideation or any other complaints. PMD: Dr. Ramirez Past Medical History - Provider Review Nursing Documentation Reviewed: Yes - Past History Past History: Non-Contributing - Infectious Disease Hx of Infectious Diseases: None - Tetanus Immunization Tetanus Immunization: Unknown - Past Medical History Past Medical History: Non-Contributing - Cardiac Hx Cardiac Disorders: Yes Hx Hypertension: Yes - Pulmonary Hx Respiratory Disorders: Yes Hx Pneumonia: Yes - Neurological Hx Neurological Disorder: No - HEENT Hx HEENT Disorder: No - Renal Hx Renal Disorder: No - Endocrine/Metabolic Hx Endocrine Disorders: Yes Hx Diabetes Mellitus Type 2: Yes - Hematological/Oncological Hx Blood Disorders: No - Integumentary Hx Dermatological Disorder: Yes Other/Comment: cellulitis to the lower extremities since 08/23, REFUSING TO HAVE LEGS ASSESSED TODAY - Musculoskeletal/Rheumatological Hx Musculoskeletal Disorders: No Hx Falls: No - Gastrointestinal Hx Gastrointestinal Disorders: Yes Hx Diverticulitis: Yes Hx Gastroesophageal Reflux: Yes Other/Comment: colitis - Genitourinary/Gynecological Hx Genitourinary Disorders: Yes Hx Urinary Tract Infection: Yes - Psychiatric Hx Substance Use: No - Past Surgical History Past Surgical History: Non-Contributing - Surgical History Hx Cardiac Catheterization: Yes Other/Comment: Colonoscopy. Endoscopy - Anesthesia Hx Anesthesia: Yes Hx Anesthesia Reactions: No Hx Malignant Hyperthermia: No - Suicidal Assessment Feels Threatened In Home Enviroment: No Family/Social History - Physician Review Nursing Documentation Reviewed: Yes Family/Social History: No Known Family HX Smoking Status: Heavy Smoker > 10 Cigarettes Daily Hx Alcohol Use: No Hx Substance Use: No Hx Substance Use Treatment: No Allergies/Home Meds Allergies/Adverse Reactions: Allergies amoxicillin [From Augmentin] Allergy (Verified 06/13/17 18:38) NAUSEA clarithromycin [From Biaxin] Allergy (Verified 06/13/17 18:38) RASH clavulanic acid [From Augmentin] Allergy (Verified 06/13/17 18:38) NAUSEA Home Medications: Home Meds Medication Instructions Recorded Confirmed [id number] CD [Cardizem CD] 360 mg PO DAILY 08/25/16 06/30/17 Atorvastatin [Lipitor] 40 mg PO HS 06/30/17 06/30/17 Dicyclomine [Bentyl] 10 mg PO BID 06/30/17 06/30/17 Enalapril Maleate [Vasotec] 10 mg PO DAILY 06/30/17 06/30/17 Omeprazole [Omeprazole] 40 mg PO DAILY 06/30/17 06/30/17 Ziprasidone [Geodon Cap] 80 mg PO AMHS 06/30/17 06/30/17 hydrOXYzine HCl [Atarax] 25 mg PO TID 06/30/17 06/30/17 Review of Systems - Physician Review All systems were reviewed & negative as marked: Yes - Review of Systems Constitutional: absent: Fevers, Night Sweats Respiratory: absent: SOB Cardiovascular: absent: Chest Pain Gastrointestinal: absent: Abdominal Pain, Nausea, Vomiting Psychiatric: Suicidal Ideation, Other (Hallucinations, Confusion. No Homicidal ideation.) Physical Exam Vital Signs Temp Pulse Resp BP Pulse Ox 06/30/17 13:04 98.1 F 102 H 16 148/89 98 Appearance: Positive for: Non-Toxic, Comfortable, Other (Obese female, tearful) Pain Distress: None Mental Status: Positive for: Alert and Oriented X 3 - Systems Exam Head: Present: Atraumatic, Normocephalic Pupils: Present: PERRL Extroacular Muscles: Present: EOMI Conjunctiva: Present: Normal Mouth: Present: Moist Mucous Membranes Neck: Present: Normal Range of Motion Respiratory/Chest: Present: Clear to Auscultation, Good Air Exchange. No: Respiratory Distress, Accessory Muscle Use Cardiovascular: Present: Regular Rate and Rhythm, Normal S1, S2. No: Murmurs Abdomen: Present: Normal Bowel Sounds. No: Tenderness, Distention, Peritoneal Signs Back: Present: Normal Inspection Upper Extremity: Present: Normal Inspection. No: Cyanosis, Edema Lower Extremity: Present: Normal Inspection. No: Edema Neurological: Present: GCS=15, CN II-XII Intact, Speech Normal. No: Memory Normal (short term memory deficit to recent events) Skin: Present: Warm, Dry, Normal Color. No: Rashes Psychiatric: Present: Alert, Oriented x 3, Normal Insight, Normal Concentration Medical Decision Making ED Course and Treatment: 06/30/17 13:09 Impression: A 56 year old female presents for psych evaluation Plan: -- Chest xray -- EKG -- Labs -- Urine culture and Urinalysis -- Reassess and disposition Progress Notes: Report Date : 06/30/2017 16:21:32 Procedure: Chest xray Dictator : Phi Santos MD IMPRESSION: No active disease. - Lab Interpretations Lab Results: 06/30/17 13:23 06/30/17 13:23 Lab Results 06/30/17 14:01: Urine Opiates Screen Negative, Urine Methadone Screen Negative, Ur Barbiturates Screen Negative, Ur Phencyclidine Scrn Negative, Ur Amphetamines Screen Negative, U Benzodiazepines Scrn Positive, U Oth Cocaine Metabols Negative, U Cannabinoids Screen Negative 06/30/17 14:01: Urine Color Light yellow, Urine Appearance Slight-cloudy, Urine pH 6.5, Ur Specific [place] 1.010, Urine Protein Negative, Urine Glucose (UA) >= 1000, Urine Ketones Negative, Urine Blood Trace-intact H, Urine Nitrate Negative , Urine Bilirubin Negative, Urine Urobilinogen 0.2, Ur Leukocyte Esterase Moderate H, Urine RBC 5 - 10, Urine WBC 2 - 5, Ur Epithelial Cells 4 - 5, Urine Other Uyeast 06/30/17 13:23: Alcohol, Quantitative < 10 06/30/17 13:23: Salicylates < 1 L, Acetaminophen < 10.0 L 06/30/17 13:23: Sodium 139, Potassium 4.5, Chloride 103, Carbon Dioxide 27, Anion Gap 13, BUN 7, Creatinine 0.7, Est GFR ( Amer) > 60, Est GFR (Non- Af Amer) > 60, Random Glucose 285 H, Calcium 9.2, Total Bilirubin 0.3, AST 18, ALT 24, Alkaline Phosphatase 64, Total Protein 6.3, Albumin 3.5, Globulin 2.8, Albumin/Globulin Ratio 1.3 06/30/17 13:23: WBC 6.0, RBC 4.05, Hgb 12.0 D, Hct 36.1, MCV 89.1, MCH 29.6, MCHC 33.2, RDW 12.9, Plt Count 188, MPV 9.4, Gran % 72.0 H, Lymph % (Auto) 19.0 L, [place] % (Auto) 8.3 H, Eos % (Auto) 0.5 L, Baso % (Auto) 0.2, Gran # 4.33, Lymph # (Auto) 1.1 L, [place] # (Auto) 0.5, Eos # (Auto) 0.0, Baso # (Auto) 0.01 I have reviewed the lab results: Yes - RAD Interpretation Radiology Orders: 06/30/17 15:40 CHEST PORTABLE [RAD] Stat - Medication Orders Current Medication Orders: Discontinued Medications Ziprasidone (Geodon Inj) 40 mg IM STAT STA PRN Reason: Protocol Stop: 06/30/17 16:13 Last Admin: 06/30/17 16:27 Dose: 40 mg IM Administration Charges Document 06/30/17 16:27 MS (Rec: 06/30/17 16:27 MS [id number]) Injection Site MAR Injection Site Left Deltoid Charges for Administration # of IM Administrations 1 Disposition/Present on Arrival - Present on Arrival Any Indicators Present on Arrival: No History of DVT/PE: No History of Uncontrolled Diabetes: No Urinary Catheter: No History Surgical Site Infection Following: None - Disposition Have Diagnosis and Disposition been Completed?: Yes Diagnosis: Schizoaffective disorder, depressive type Disposition: HOSPITALIZED Disposition Time: 16:00 Patient Plan: Admission Patient Problems: Current Active Problems Problem Status Onset Schizoaffective disorder, depressive type Acute Condition: STABLE Referrals: Darek Ramirez DO [Primary Care Provider] - Follow up with primary
[2017-06-30 13:13] VITALS: BMI 42.3
[2017-06-30 13:37] LABS: BASO # 0.01 K/mm3 (0.0-2.0); BASO % 0.2 % (0.0-3.0); EOS % 0.5 % (1.5-5.0); GRAN # 4.33 (1.4-6.5); LYMPH # 1.1 (1.2-3.4); MEAN CELL VOLUME 89.1 fl (80.0-105.0); MEAN CORPUSCULAR HEMOGLOBIN 29.6 pg (25.0-35.0); MEAN CORPUSCULAR HGB CONC 33.2 g/dl (31.0-37.0); MEAN PLATELET VOLUME 9.4 fl (7.0-11.0); MONO # 0.5 (0.1-0.6); MONO % 8.3 % (1.0-6.0); RBC 4.05 10^6/uL (3.5-6.1); RED CELL DISTRIBUTION WIDTH 12.9 % (11.5-14.5)
[2017-06-30 13:42] LABS: ACETAMINOPHEN < 10.0 ug/ml (10.0-20.0); SALICYLATE < 1 mg/dL (2.0-20.0)
[2017-06-30 13:44] LABS: ALB/GLOB RATIO 1.3 (1.1-1.8); ALBUMIN 3.5 g/dL (3.0-4.8); ALT/SGPT 24 U/L (7-56); AST/SGOT 18 U/L (14-36); BLOOD UREA NITROGEN 7 mg/dL (7-21); CALCIUM 9.2 mg/dL (8.4-10.5); GFR AFRICAN-AMERICAN > 60; GFR NON-AFRICAN AMERICAN > 60
[2017-06-30 15:14] LABS: PH,URINE 6.5 (4.7-8.0); URINE APPEARANCE SLIGHT-CLOUDY (CLEAR); URINE BILIRUBIN NEGATIVE (NEGATIVE); URINE BLOOD TRACE-INTACT (NEGATIVE); URINE COLOR LIGHT YELLOW (YELLOW); URINE GLUCOSE (UA) >=1000 mg/dL (NEGATIVE); URINE LEUKOCYTE ESTERASE MODERATE Leu/uL (NEGATIVE); URINE PROTEIN NEGATIVE mg/dL (<30 mg/dL); URINE UROBILINOGEN 0.2 E.U./dL (<1 E.U./dL)
[2017-06-30 15:55] LABS: BARBITURATES, UR NEGATIVE (NEGATIVE); BENZODIAZEPINES, UR POSITIVE (NEGATIVE); OPIATES, UR NEGATIVE (NEGATIVE); PHENCYCLIDINE, UR NEGATIVE (NEGATIVE)
--- NOTE | 2017-06-30 16:23 | RAD ---
HISTORY: screen COMPARISON: 06/13/2017 FINDINGS: LUNGS: No active pulmonary disease. PLEURA: No significant pleural effusion identified, no pneumothorax apparent. CARDIOVASCULAR: Normal. OSSEOUS STRUCTURES: No significant abnormalities. VISUALIZED UPPER ABDOMEN: Normal. OTHER FINDINGS: None. IMPRESSION: No active disease.
--- NOTE | 2017-06-30 18:05 | PCM.BM ---
<EddieMark - Last Filed: 06/30/17 18:01> Treatment Plan Problems - Problems identified on initial assessmt ALTERED THOUGHT PROCESS Date Initiated: 06/30/17 Time Initiated: 18:02 Assessment reference: HP, NA Status: Active HALLUCINATIONS Date Initiated: 06/30/17 Time Initiated: 18:03 Assessment reference: HP, NA Status: Active SELF CARE DEFICIT Time Initiated: 18:04 Assessment reference: HP, NA Status: Active Treatment assets and liabiliti Patient Assests: adapts well, cooperative, ADL independent, negotiates basic needs Patient Liabilities: poor support system, relationship conflicts, medical problems, other - Milieu Protocol Maintain good personal hygiene: daily Encourage regular showers, daily Remind patient to perform daily oral care, daily Assist patient to perform ADL's Maintain personal safety: daily Educate patient to report safety concerns to staff, daily Monitor environment for contraband/sharps Medication safety: Monitor for expected outcome, potential side effects: daily, Assess barriers to learning: daily, Assess readiness for medication education: daily Discharge/Continuing Care - Education Needs Education Needs: Patient Medication, Patient Diagnosis/Disease Process, Patient Coping Skills, Patient Anger Management skills, Patient Placement options, Patient Community resources, Patient Activities of Daily Living, Patient Health Practices/Safety, Patient Aftercare Safety Plan - Discharge Discharge Criteria: Tolerates medication w/o severe side effects, Free of paranoid thoughts, Free of agitation, Normal sleep pattern, Ability to care for self, Reduction of target symptoms Discharge to:: Home <Eladia Valentine - Last Filed: 07/01/17 08:31> - Diagnosis (1) Schizoaffective disorder, depressive type Status: Acute Interventions: 07/01/17 08:31 Psychoeducation/psychotherapy Psychopharmacology/adjustment of medications as needed/ monitoring possible side effects Evaluate pt on daily basis Compliance with medications and follow up appointments Long acting medication if pt is noncompliant with pill form Suicide and homicide risk assessment and prevention, coping strategies, safety plan Relapse prevention Reduction of symptoms Improve functional status Possible assertive community treatment Cognitive behavioral therapy Family involvement Possible social skill training as outpatient <Alida Meeks - Last Filed: 07/01/17 11:24> Family Contact Family involvement: Family/SO is involved Family contact: Patient agrees to contact Family contact name: Mallory Hou(sister) [phone] Family contacted how many times per week?: 2 <Joann Spann - Last Filed: 07/01/17 15:27>
--- NOTE | 2017-06-30 18:28 | CARD ---
APPROVED REPORT EKG Measurement Heart [id number] <Conclusion> Sinus tachycardia Otherwise normal ECG
[2017-06-30] MEDS: Insulin Reg-LOW-Coverage SC SCH (21:17)
[2017-06-30] MEDS: Divalproex 500 mg DR(BID formulation) PO SCH (21:17)
[2017-07-01] MEDS ORDERED: Magnesium Hydroxide Susp 30 ml UD PO PRN (00:20)
[2017-07-01] MEDS: Insulin Reg-LOW-Coverage SC SCH ×3 (07:30→17:44)
[2017-07-01 07:59] LABS: GLUCOSE,FASTING 178 mg/dL (65-110); HDL CHOLESTEROL 40 mg/dL (29-60)
[2017-07-01 08:10] LABS: LDL CHOLESTEROL 72 mg/dL (0-129)
[2017-07-01 08:16] LABS: FREE T4 1.18 ng/dL (0.78-2.19)
--- NOTE | 2017-07-01 08:32 | PCM.FALL ---
Post Fall Progress Note - Post Fall Fall Date: 07/01/17 Fall Time: 08:12 Description of Fall: Patient was found on floor by nursing staff when code star was called. Patient was then lifted up and placed back on her bed. Patient denied trauma to the head. Patient is known to roll around/crawl on floor as per nursing staff. Denies shortness of breath, chest pain, abdominal pain, dizziness, nausea, headache. - Post Fall Exam Vital Sign: Temp Pulse Resp BP Pulse Ox 98.1 F 89 20 110/60 97 07/01/17 07:34 07/01/17 07:34 07/01/17 07:34 07/01/17 07:34 06/30/17 16:40 Skull Exam: Negative for: Scalp wound, Scalp hematoma, Scalp depression, Ridge in skull Eye Exam: Positive for: Pupils equal, Pupils reactive Ear Exam: Negative for: Discharge, Bleeding Nose Exam: Negative for: Discharge, Bleeding Skin Exam: Negative for: Colour, Lacerations, Grazes, Bruising Mouth Exam: Negative for: Tongue bitten, Teeth dislodge Neck Exam: Negative for: Tenderness, Tingling, Weakness Spinal Exam: Negative for: Tenderness, Tingling, Weakness Chest Exam: Negative for: Difficulty breathing, Tenderness in collar bones, Tenderness in ribs Abdomen Exam: Negative for: Tenderness Pelvic Exam: Negative for: Tenderness, Hematuria Arm Exam: Negative for: Deformity, Alteration in range of movement Leg Exam: Negative for: Deformity, Alteration in range of movement Impression/Plan: Unwitnessed fall -CT head ordered as fall was unwitnessed. CT head revealed no intracranial hemorrhage or masses. -1:1 for observation -Patient placed on fall precautions -Macrobid given for UTI
--- NOTE | 2017-07-01 09:23 | CT ---
PROCEDURE: CT HEAD WITHOUT CONTRAST. HISTORY: unwitnessed fall COMPARISON: 12/24/2016 TECHNIQUE: Axial computed tomography images were obtained through the head/brain without intravenous contrast. Radiation dose: Total exam DLP = 847 mGy-cm. This CT exam was performed using one or more of the following dose reduction techniques: Automated exposure control, adjustment of the mA and/or kV according to patient size, and/or use of iterative reconstruction technique. FINDINGS: HEMORRHAGE: No intracranial hemorrhage. BRAIN: No mass effect or edema. No atrophy or chronic microvascular ischemic changes. VENTRICLES: Unremarkable. No hydrocephalus. CALVARIUM: Unremarkable. PARANASAL SINUSES: Unremarkable as visualized. No significant inflammatory changes. MASTOID AIR CELLS: Unremarkable as visualized. No inflammatory changes. OTHER FINDINGS: None. IMPRESSION: No acute findings
[2017-07-01] MEDS: Venlafaxine 75 mg ER Cap PO SCH (09:52)
[2017-07-01] MEDS: Divalproex 500 mg DR(BID formulation) PO SCH ×2 (09:53→21:05)
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
--- NOTE | 2017-07-01 21:36 | CON ---
DATE: HISTORY OF PRESENT ILLNESS: I know her well from the office and also the last time she was here, I saw her in the psychiatric floor. She comes in accompanied by the family to the Psych department confused, delusional, possible harming herself. PAST MEDICAL HISTORY: Schizophrenia, hypertension, CAD, history of pneumonia, diabetes, she had cellulitis in the extremities in the past, reflux, diverticulitis, history of colitis, history of multiple urinary tract infections in the past, I would not be surprised if she does not have one now. She had a cardiac cath, colonoscopies, endoscopies. FAMILY HISTORY: No known history. SOCIAL HISTORY: Still smoking cigarettes. No alcohol, no drugs. ALLERGIES: ALLERGIC TO PENICILLIN, CLARITHROMYCIN AND AUGMENTIN. MEDICATIONS: She is on diltiazem, Lipitor, Bentyl, Vasotec, omeprazole, Geodon, Atarax. This morning when I am here talking with her, she gave me one word answers, but did not talk much. She did not appear to be short of breath or in chest pain or having any abdominal pain. There was some suicidal ideation that was found in the Emergency Room. PHYSICAL EXAMINATION: VITAL SIGNS: She has 98.1 temp, 102 pulse, 16 respiratory rate, 140/89 blood pressure, 98% O2 sat on room air. GENERAL: She is alert, she is not talking right now. HEENT: Head is atraumatic, normocephalic. Extraocular muscles intact. Throat is moist. NECK: Supple. HEART: Regular rate. Normal S1 and S2. LUNGS: Decreased breath sounds, clear to auscultation. NEUROLOGIC: GCS is 15. Cranial nerves II through XII grossly intact. She is alert, not sure about orientation. She is not answering my questions at this time. SKIN: As far as I can tell is warm and dry. No ulcers or rashes. LABORATORY DATA: She has a 6 white count, 12 hemoglobin, 36.1 hematocrit, with 188 platelets. Her urine tox screen was positive for benzodiazepines. Urine showed a urinary tract infection. The resident was at bedside for a possible unwitnessed fall, which she has had in the past. We will give her some Macrobid. She has a 139 sodium, potassium 4.5, BUN 7, creatinine 0.7, GFR is greater than 60, last blood sugar is 186. We will put her on insulin coverage. Calcium is 9.2, total bili is 0.3, AST is 18, ALT is 24, alk phos is 64, triglycerides 171, cholesterol is 135, TSH is 1.97. Chest x-ray was clear. EKG sinus tachycardia. We will check her labs tomorrow. ASSESSMENT AND PLAN: Hopefully the medicines will go back on board; it is very possible that she did not take her medications when she was out of the hospital what happens to her and she gets this confusion and not feeling well again. Continue with aggressive psychiatric care. We will check her labs tomorrow. I encouraged her to take her meds, eat the food, participate, and we will see how she does she can turn around. She has suicidal issues, urinary tract infection, schizoaffective disorder. We will follow. Darek Ramirez DO MTDParminder
[2017-07-02] MEDS: Insulin Reg-LOW-Coverage SC SCH ×5 (01:35→22:18)
[2017-07-02 07:22] LABS: HEMOGLOBIN 11.1 g/dL (12.0-16.0); MEAN CELL VOLUME 88.8 fl (80.0-105.0); MEAN CORPUSCULAR HGB CONC 32.6 g/dl (31.0-37.0); MEAN PLATELET VOLUME 8.6 fl (7.0-11.0); RBC 3.83 10^6/uL (3.5-6.1); WHITE BLOOD COUNT 5.8 10^3/ul (4.5-11.0)
[2017-07-02 08:21] LABS: ALB/GLOB RATIO 1.1 (1.1-1.8); ALBUMIN 3.1 g/dL (3.0-4.8); ALT/SGPT 22 U/L (7-56); AST/SGOT 17 U/L (14-36); BLOOD UREA NITROGEN 7 mg/dL (7-21); GFR AFRICAN-AMERICAN > 60; GFR NON-AFRICAN AMERICAN > 60
[2017-07-02] MEDS: Venlafaxine 75 mg ER Cap PO SCH (09:01)
[2017-07-02] MEDS: Divalproex 500 mg DR(BID formulation) PO SCH ×2 (09:01→21:21)
--- NOTE | 2017-07-02 09:18 | PCM.PYCHPN ---
Psychiatric Progress Note - Psychiatric Progress Note Patient seen today, length of contact: 25 MIN Patient Chief Complaint: better and feeling hopeful Problems Identified/Issues Discussed: Patient is known to me from prior hospitalizations. I reviewed recent notes on the unit. Patient has been disorganized, catatonic with episodes of throwing herself on the floor. She remains on 1:1 due to unpredictable impulses. I met with patient at bedside. Her appearance remains unkempt and oddly related. She is oriented x3 and affect is blunt. She is thought blocked and guarded. Thought process remains scattered and communication is difficult due to vagueness and speech latency. Indicates she is better and feeling hopeful. Patient denies any new discomfort or pain. Her only concern is that she is "sleeping and eating all the time". She appears internally preoccupied but doesn't appear to be responding to internal stimuli. There were no major behavioral issues overnight. Diagnostic Results: SCHIZOAFFECTIVE DISORDER Mental Status Examination - Cognitive Function Orientation: Person, Place Attention: Poor Concentration: Poor - Mood Mood: Depressed, Anxious - Affect Affect: Flat, Other (guarded, internally preoccupied) - Formal Thought Process Formal Thought Process: Hallucinations (denies to this provider this morning), Delusions, Paranoia, Other (+speech latency) - Suicidal Ideation Suicidal Ideation: No - Homicidal Ideation Homicidal Ideation: No Goal/Treatment Plan - Goal/Treatment Plan Progress Toward Problem(s) and Goals/Treatment Plan: * c/w current tx and plan * No new weekend labs thus far * Vitals reviewed and noted below: Selected Entries 07/02/17 08:10 Temperature 98.4 F Pulse Rate 95 H Respiratory 18 Rate Blood Pressure 145/89
[2017-07-02] MEDS: POLYETHYLENE GLYCOL 3350 17 GM/Dose PACKET PO SCH (14:53)
--- NOTE | 2017-07-02 16:59 | PN ---
DATE: SUBJECTIVE: I saw her with her one-to-one. She had a code larkin yesterday when she was found on the floor. She has done this before in the past where she is just sitting on the floor. No problems, no pain, do nothing, but she is very constipated. She is going to need some MiraLax probably on a regular basis. She is talking better today. She is looking at me and comfortable. She has a UTI. She has suicidal ideation, schizoaffective disorder, diabetes, which is new with high blood sugars and constipation. She is on Depakote, Effexor, Geodon, insulin coverage. I added Januvia, Klonopin, Maalox, Macrobid for UTI, milk of magnesia and MiraLax for the constipation daily, Sonata and Tylenol. PHYSICAL EXAMINATION VITAL SIGNS: 98.4 temp, 95 pulse, 145/89 blood pressure, 18 respiratory rate. HEENT: Head is atraumatic, normocephalic. Throat is moist. NECK: Supple. HEART: Regular rate. LUNGS: Decreased breath sounds, but clear. ABDOMEN: Morbidly obese, soft. Decreased bowel sounds were present. No guarding or rebound, just distended. She is very full, like she is constipated. EXTREMITIES: No edema. LABORATORY DATA: She has a 5.8 white count, 11.1 hemoglobin, 34 hematocrit with 165 platelets. Sodium 142, potassium 4.3, BUN 7, creatinine 0.7, GFR is greater than 60, sugar is 166, calcium is 9, total bilirubin is 0.2, AST is 17, ALT is 22, alkaline phosphatase 69, total protein is 5.8. Her blood sugar has been from 218 down to as low as 143 and now up to 198. I will start her on Januvia 50 mg, hoping that will help. Continue with aggressive treatment and care and we will follow her. Darek Ramirez DO
[2017-07-03] MEDS: Insulin Reg-LOW-Coverage SC SCH ×4 (08:08→21:29)
[2017-07-03] MEDS: POLYETHYLENE GLYCOL 3350 17 GM/Dose PACKET PO SCH (08:36)
[2017-07-03] MEDS: Divalproex 500 mg DR(BID formulation) PO SCH ×2 (08:38→21:29)
[2017-07-03] MEDS: Venlafaxine 75 mg ER Cap PO SCH (08:38)
--- NOTE | 2017-07-03 09:16 | PCM.PYCHPN ---
Psychiatric Progress Note - Psychiatric Progress Note Patient seen today, length of contact: 25 MIN Patient Chief Complaint: Patient indicates that she is "better and feeling hopeful". States "I want to get better" Problems Identified/Issues Discussed: Patient is known to me from prior hospitalizations. I reviewed recent notes on the unit. Patient has been disorganized, catatonic with episodes of throwing herself on the floor. There were no further episodes this weekend. She remains on 1:1 due to unpredictabililty of her behavior. I met with patient at bedside again. Her appearance remains unkempt and oddly related. She is oriented x3 and affect is blunt. She is less thought-blocked today but remains guarded. Communication is difficult due to vagueness and speech latency. Patient indicates that she is "better and feeling hopeful". States "I want to get better". However patient told staff she was feeling hopeless earlier this weekend. Patient denies any new discomfort or pain. She appears internally preoccupied but doesn't appear to be responding to internal stimuli. Yesterday patient told staff that she was having auditory hallucinations of hearing family members voices. Patient denies any further hallucinations today. As noted above, there were no major behavioral issues over the weekend thus far . Diagnostic Results: SCHIZOAFFECTIVE DISORDER Mental Status Examination - Cognitive Function Orientation: Person, Place Attention: Poor Concentration: Poor - Mood Mood: Depressed (Patient indicates that she is "better and feeling hopeful". States "I want to get better"), Anxious - Affect Affect: Flat, Other (guarded, internally preoccupied) - Formal Thought Process Formal Thought Process: Hallucinations (denies to this provider this morning admitted to hearing family member voices yesterday), Delusions, Paranoia, Other (+speech latency) - Suicidal Ideation Suicidal Ideation: No - Homicidal Ideation Homicidal Ideation: No Goal/Treatment Plan - Goal/Treatment Plan Progress Toward Problem(s) and Goals/Treatment Plan: * c/w current tx and plan * Appreciate f/u by Dr. Ramirez on 07/02/17~starting Januvia for patient * Vitals reviewed and noted below: 07/03/17 07:38 Temperature 99.7 F H Pulse Rate 95 H Respiratory 20 Rate Blood Pressure 141/79 * New weekend labs noted below: 07/02/17 07/02/17 07/02/17 07:00 07:00 07:00 WBC 5.8 RBC 3.83 Hgb 11.1 L Hct 34.0 L MCV 88.8 MCH 29.0 MCHC 32.6 RDW 13.0 Plt Count 165 MPV 8.6 Sodium 142 Potassium 4.3 Chloride 107 Carbon Dioxide 28 Anion Gap 12 BUN 7 Creatinine 0.7 Est GFR (Non-Af Amer) > 60 POC Glucose (mg/dL) Random Glucose 166 H Calcium 9.0 Total Bilirubin 0.2 AST 17 ALT 22 Alkaline Phosphatase 69 Total Protein 5.8 Albumin 3.1 Globulin 2.7 Albumin/Globulin Ratio 1.1 Valproic Acid 62 07/02/17 07:59 WBC RBC Hgb Hct MCV MCH MCHC RDW Plt Count MPV Sodium Potassium Chloride Carbon Dioxide Anion Gap BUN Creatinine Est GFR (Non-Af Amer) POC Glucose (mg/dL) 143 H Random Glucose Calcium Total Bilirubin AST ALT Alkaline Phosphatase Total Protein Albumin Globulin Albumin/Globulin Ratio Valproic Acid
--- NOTE | 2017-07-03 15:02 | PN ---
DATE: SUBJECTIVE: I saw her resting comfortably in her bed, she has a one to one. She is alert. She is talking better. She is telling me she is having some arthritis pains and looking for some Naprosyn, she has had that before. She also has UTI, suicidal ideation, schizoaffective disorder, diabetes and constipation. She is on MiraLax now. She moved her bowels a little bit this morning; hoping after every day MiraLax, it will improve. I added Anaprox. She is on Depakote, Effexor, Geodon, insulin coverage, Januvia for the diabetes, Klonopin, Maalox, Macrobid for the UTI, milk of magnesia, MiraLax daily for constipation, Sonata, and Tylenol. OBJECTIVE VITAL SIGNS: She has a 99.7 temperature, 95 pulse, 141/79 blood pressure, 20 respiratory rate. That is a pretty high temperature, I will do a blood test tomorrow. HEENT: Head is atraumatic, normocephalic. HEART: Regular rate. LUNGS: Clear to auscultation with decreased breath sounds. ABDOMEN: Morbidly obese, softer than yesterday. She had a bowel movement, positive bowel sounds. No guarding, no rebound. EXTREMITIES: No edema. DATA: She has a 5.8 white count, 11.1 hemoglobin, 34 hematocrit with 165,000 platelets. Sodium 142, potassium 4.3. Last blood sugar was 124, I am hoping Januvia keeps her under 160. Calcium is 9, total bilirubin is 0.2, AST is 17, ALT is 22, alkaline phosphatase 69. I will continue with the aggressive treatment and care. She is being seen by Psychiatry. She is on MiraLax and now Naprosyn, Macrobid, Januvia. Hopefully, she will continue to improve. Encouraged her to participate in groups, eat the medicines well, take the diet, participate. Darek Ramirez DO
[2017-07-03] MEDS: Naproxen 550 mg Tab PO SCH (16:14)
[2017-07-04 07:50] LABS: HEMOGLOBIN 10.8 g/dL (12.0-16.0); MEAN CELL VOLUME 89.7 fl (80.0-105.0); MEAN CORPUSCULAR HEMOGLOBIN 29.3 pg (25.0-35.0); MEAN CORPUSCULAR HGB CONC 32.7 g/dl (31.0-37.0); MEAN PLATELET VOLUME 8.8 fl (7.0-11.0); RBC 3.68 10^6/uL (3.5-6.1); RED CELL DISTRIBUTION WIDTH 13.3 % (11.5-14.5); WHITE BLOOD COUNT 4.9 10^3/ul (4.5-11.0)
[2017-07-04] MEDS: Insulin Reg-LOW-Coverage SC SCH ×4 (07:54→22:00)
[2017-07-04 07:56] LABS: ALB/GLOB RATIO 1.1 (1.1-1.8); ALBUMIN 3.1 g/dL (3.0-4.8); ALT/SGPT 20 U/L (7-56); AST/SGOT 16 U/L (14-36); BLOOD UREA NITROGEN 13 mg/dL (7-21); CALCIUM 9.2 mg/dL (8.4-10.5); GFR AFRICAN-AMERICAN > 60; GFR NON-AFRICAN AMERICAN > 60
[2017-07-04] MEDS: Venlafaxine 75 mg ER Cap PO SCH (08:45)
[2017-07-04] MEDS: Divalproex 500 mg DR(BID formulation) PO SCH ×2 (08:46→21:08)
[2017-07-04] MEDS: Naproxen 550 mg Tab PO SCH ×2 (08:47→17:34)
[2017-07-04] MEDS: POLYETHYLENE GLYCOL 3350 17 GM/Dose PACKET PO SCH (08:47)
[2017-07-04] MEDS: Alum-Mag Hydrox-Simethicone Susp (30 mL) PO PRN (10:59)
--- NOTE | 2017-07-04 17:06 | PCM.PYCHPN ---
Psychiatric Progress Note - Psychiatric Progress Note Patient seen today, length of contact: 30min Patient Chief Complaint: "I stopped taking medications because you prescribed me the same medications" Problems Identified/Issues Discussed: Suicide/ homicide prevention, past psychiatric h/o, current psychiatric symptoms , medical problems, risk/benefits and alternatives of medications, medications compliance, coping strategies, substance abuse h/o, relapse prevention, importance of follow up with psychiatrist and therapist, discharge plan. Medical Problems: obesity, dyslipidemia, hypothyroidism Diagnostic Results: 07/04/17 07:20 07/04/17 07:20 Lab Results 07/04/17 16:47: POC Glucose (mg/dL) 136 H 07/04/17 11:12: POC Glucose (mg/dL) 175 H 07/04/17 07:20: Sodium 142, Potassium 4.5, Chloride 105, Carbon Dioxide 31, Anion Gap 11, BUN 13, Creatinine 0.8, Est GFR ( Amer) > 60, Est GFR (Non- Af Amer) > 60, Random Glucose 142 H, Calcium 9.2, Total Bilirubin 0.2, AST 16, ALT 20, Alkaline Phosphatase 68, Total Protein 5.8, Albumin 3.1, Globulin 2.8, Albumin/Globulin Ratio 1.1 07/04/17 07:20: WBC 4.9, RBC 3.68, Hgb 10.8 L, Hct 33.0 L, MCV 89.7, MCH 29.3, MCHC 32.7, RDW 13.3, Plt Count 163, MPV 8.8 07/04/17 07:08: POC Glucose (mg/dL) 135 H 07/03/17 21:13: POC Glucose (mg/dL) 175 H 07/03/17 15:58: POC Glucose (mg/dL) 112 H 07/03/17 11:21: POC Glucose (mg/dL) 249 H 07/03/17 07:20: POC Glucose (mg/dL) 124 H 07/02/17 21:27: POC Glucose (mg/dL) 142 H 07/02/17 17:15: POC Glucose (mg/dL) 202 H 07/02/17 11:19: POC Glucose (mg/dL) 198 H 07/02/17 07:59: POC Glucose (mg/dL) 143 H 07/02/17 07:00: Valproic Acid 62 07/02/17 07:00: Sodium 142, Potassium 4.3, Chloride 107, Carbon Dioxide 28, Anion Gap 12, BUN 7, Creatinine 0.7, Est GFR ( Amer) > 60, Est GFR (Non- Af Amer) > 60, Random Glucose 166 H, Calcium 9.0, Total Bilirubin 0.2, AST 17, ALT 22, Alkaline Phosphatase 69, Total Protein 5.8, Albumin 3.1, Globulin 2.7, Albumin/Globulin Ratio 1.1 07/02/17 07:00: WBC 5.8, RBC 3.83, Hgb 11.1 L, Hct 34.0 L, MCV 88.8, MCH 29.0, MCHC 32.6, RDW 13.0, Plt Count 165, MPV 8.6 07/01/17 20:55: POC Glucose (mg/dL) 170 H 07/01/17 17:02: POC Glucose (mg/dL) 159 H 07/01/17 11:40: POC Glucose (mg/dL) 218 H 07/01/17 08:17: POC Glucose (mg/dL) 158 H 07/01/17 07:27: POC Glucose (mg/dL) 186 H 07/01/17 07:20: RPR Nonreactive 07/01/17 07:20: Free T4 1.18, TSH 3rd Generation 1.97 07/01/17 07:20: Fasting Glucose 178 H, Triglycerides 171 H, Cholesterol 135, LDL Cholesterol Direct 72, HDL Cholesterol 40 06/30/17 20:54: POC Glucose (mg/dL) 314 H 06/30/17 17:57: POC Glucose (mg/dL) 259 H 06/30/17 14:01: Urine Opiates Screen Negative, Urine Methadone Screen Negative, Ur Barbiturates Screen Negative, Ur Phencyclidine Scrn Negative, Ur Amphetamines Screen Negative, U Benzodiazepines Scrn Positive, U Oth Cocaine Metabols Negative, U Cannabinoids Screen Negative 06/30/17 14:01: Urine Color Light yellow, Urine Appearance Slight-cloudy, Urine pH 6.5, Ur Specific [place] 1.010, Urine Protein Negative, Urine Glucose (UA) >= 1000, Urine Ketones Negative, Urine Blood Trace-intact H, Urine Nitrate Negative , Urine Bilirubin Negative, Urine Urobilinogen 0.2, Ur Leukocyte Esterase Moderate H, Urine RBC 5 - 10, Urine WBC 2 - 5, Ur Epithelial Cells 4 - 5, Urine Other Uyeast 06/30/17 13:23: Alcohol, Quantitative < 10 06/30/17 13:23: Salicylates < 1 L, Acetaminophen < 10.0 L 06/30/17 13:23: Sodium 139, Potassium 4.5, Chloride 103, Carbon Dioxide 27, Anion Gap 13, BUN 7, Creatinine 0.7, Est GFR ( Amer) > 60, Est GFR (Non- Af Amer) > 60, Random Glucose 285 H, Calcium 9.2, Total Bilirubin 0.3, AST 18, ALT 24, Alkaline Phosphatase 64, Total Protein 6.3, Albumin 3.5, Globulin 2.8, Albumin/Globulin Ratio 1.3 06/30/17 13:23: WBC 6.0, RBC 4.05, Hgb 12.0 D, Hct 36.1, MCV 89.1, MCH 29.6, MCHC 33.2, RDW 12.9, Plt Count 188, MPV 9.4, Gran % 72.0 H, Lymph % (Auto) 19.0 L, [place] % (Auto) 8.3 H, Eos % (Auto) 0.5 L, Baso % (Auto) 0.2, Gran # 4.33, Lymph # (Auto) 1.1 L, [place] # (Auto) 0.5, Eos # (Auto) 0.0, Baso # (Auto) 0.01 Vital Signs Temp Pulse Resp BP Pulse Ox 07/04/17 07:15 98.2 F 85 20 114/73 07/03/17 21:40 95 H 125/84 07/03/17 07:38 99.7 F H 95 H 20 141/79 07/02/17 15:00 88 148/90 07/02/17 08:10 98.4 F 95 H 18 145/89 07/01/17 15:00 85 141/79 07/01/17 07:34 98.1 F 89 20 110/60 06/30/17 17:19 98.2 F 101 H 18 137/73 06/30/17 16:40 100 H 18 152/79 H 97 06/30/17 13:04 98.1 F 102 H 16 148/89 98 DSM 5 Symptoms Update: shortly patient is 56 year old Female, reported h/o schizoaffective disorder, multiple psychiatric admissions, including this facility under 's services, as well this comic writer early this month, pt signed herself from the hospital despite the advise from this comic writer to stay. pt currently attends [facility] IOP program, pt denied h/o suicidal attempts, but h/o disorganized and psychotic behavior, pt verbalized thoughts of "I don't want to live anymore " to her sister who brought her to the hospital, as per report pt was overmedicating herself. pt needs further evaluation and stabilization. at the time of admission pt was found in catatonic stage, was not able to talk, was moving slowly. over the weekend pt was on 1:1 because risk of falls and disorganized behavior. pt was seen today at the treatment team meeting. pt presented more talkative, still talking in monotonic voice, disorganized pt said that she was not taking medications after last admission because "you prescribed me the same medications". this comic writer explained to the pt that a lot of changes with meds took place last admission but pt wants to try new meds, will try conventional antipsychotic meds , prolixin, pt was educated about risk, benefits and alternatives, pt verbalized understanding. as per RN report pt does not require 1:1, will d/c it. pt compliant with meds, no side effects observed or reported, AIMS 0, no EPS. DSM 5 Diagnosis: Schizoaffective disorder Medication Change: Yes (prolixin started, geodon decreased) Medical Record Reviewed: Yes Consults ordered or reviewed: medical consult appreciated Mental Status Examination - Cognitive Function Orientation: Person, Place Attention: Poor Concentration: Poor - Mood Mood: Depressed (Patient indicates that she is "better and feeling hopeful". States "I want to get better"), Anxious - Affect Affect: Flat, Other (guarded, internally preoccupied) - Formal Thought Process Formal Thought Process: Hallucinations ("I hear my family voices"), Delusions, Paranoia, Other (+speech latency) - Suicidal Ideation Suicidal Ideation: No - Homicidal Ideation Homicidal Ideation: No Goal/Treatment Plan - Goal/Treatment Plan Need for Continued Stay: Remain at risks for inpatient hospitalization, Severe depression anxiety, Discharge may exacerbated symptoms, Severe functional impairment Progress Toward Problem(s) and Goals/Treatment Plan: milieu/structure/supportive therapy ALPRAZolam will be d/c klonopin 2mg po tid scheduled, for catatonia and anxiety, pt was on xanax 1mg qid Divalproex [Depakote DR(*BID*)] 500 mg PO DAILY resumed Divalproex [Depakote DR(*BID*)] 1,000 mg PO HS resumed will check on depakote level Venlafaxine [Effexor XR] 150 mg PO DAILY will be continued Zaleplon [Sonata] 5 mg PO HS will be continued Ziprasidone [Geodon Cap] 60 mg PO AM 40mg HS with the plan to wean it off prolixin 5mg po amhs for psychosis with the plan to titrate it up medical consult appreciated will call for collaterals from family, SW obtain written consent Will monitor closely Pt was educated about risk/benefits and alternatives of medications, coping strategies (safety plan, suicide prevention), relapse prevention, importance of follow up with psychiatrist and therapist, stay away from drugs/alcohol/smoking Estimated Date of D/C: 07/15/17
--- NOTE | 2017-07-05 08:05 | PN ---
DATE: 07/04/2017 SUBJECTIVE: I saw her in the psych floor. She tells me she is still constipated even though she is on MiraLax now. She wants something, I will give her Dulcolax suppository. She is on naproxen, Depakote, I added Dulcolax, Effexor, Geodon, Januvia, Klonopin, Maalox, Macrobid, milk of magnesia, MiraLax daily, Sonata and Tylenol. PHYSICAL EXAMINATION: VITAL SIGNS Temp 98.2, 85 pulse, 114/73 blood pressure, 20 respiratory rate. HEENT: Head is atraumatic, normocephalic. HEART: Regular rate. LUNGS: Clear to auscultation. ABDOMEN: Morbidly obese, soft, decreased bowel sounds but present. EXTREMITIES: No edema. LABORATORY DATA: She has a 4.9 white count, 10.8 hemoglobin, 33.0 hematocrit, with 163 platelets. Sodium 142, potassium 4.5. BUN is 30, creatinine 0.8, GFR is greater than 60; sugar is 142, better. Calcium is 9.2, total bili is 0.2. AST is 16, ALT is 20, alkaline phosphatase 68, total protein is 5.8. ASSESSMENT AND PLAN: She has multiple issues, urinary tract infection, suicidal ideation, schizoaffective disorder, diabetes, constipation, osteoarthritis. We will give her Dulcolax suppository. Encouraged her to participate in groups. I think mentally she is slowly coming around. We will watch her very closely as per Psychiatry. Darek Ramirez DO
[2017-07-05] MEDS: Insulin Reg-LOW-Coverage SC SCH ×4 (08:38→21:40)
[2017-07-05] MEDS: POLYETHYLENE GLYCOL 3350 17 GM/Dose PACKET PO SCH (09:28)
[2017-07-05] MEDS: Naproxen 550 mg Tab PO SCH ×2 (09:28→17:28)
[2017-07-05] MEDS: Divalproex 500 mg DR(BID formulation) PO SCH ×2 (09:28→21:53)
[2017-07-05] MEDS: Venlafaxine 75 mg ER Cap PO SCH (09:30)
--- NOTE | 2017-07-05 15:08 | PN ---
DATE: SUBJECTIVE: I saw her in the Psych Unit. She is doing much better. She is feeling much better. She is in better spirits. She is eating well, walking well. She is on Anaprox, Depakote, Effexor, Geodon, Humulin insulin coverage, Januvia, Klonopin, Maalox, Macrobid, milk of magnesia, MiraLax, Prolixin, Sonata, and Tylenol. She tells me the MiraLax is helping her when she is moving her bowels quite well. She is here for UTI, suicidal ideation, schizoaffective disorder, diabetes, constipation, and osteoarthritis. PHYSICAL EXAMINATION VITAL SIGNS: A 97.9 temperature, 77 pulse, 143/76 blood pressure, 18 respiratory rate. HEENT: Head is atraumatic, normocephalic. HEART: Regular rate. LUNGS: Clear to auscultation. ABDOMEN: Soft, obese, nontender. Positive bowel sounds. EXTREMITIES: No edema. LABORATORY DATA: Last labs on the , she has a 4.9 white count, 10.8 hemoglobin, 163 platelets. Last blood sugar was 186, better than it was Januvia. I will increase to 100 mg today. I will continue aggressive treatment and care on Anna Marie Desir. I think she is improving. We will follow. Darek Ramirez DO MTDParminder
--- NOTE | 2017-07-05 17:29 | PCM.PYCHPN ---
Psychiatric Progress Note - Psychiatric Progress Note Patient seen today, length of contact: 30min Patient Chief Complaint: "I thought people were talking about me, just a little" Problems Identified/Issues Discussed: Suicide/ homicide prevention, past psychiatric h/o, current psychiatric symptoms , medical problems, risk/benefits and alternatives of medications, medications compliance, coping strategies, substance abuse h/o, relapse prevention, importance of follow up with psychiatrist and therapist, discharge plan. Medical Problems: obesity, dyslipidemia, hypothyroidism Diagnostic Results: 07/04/17 07:20 07/04/17 07:20 Lab Results 07/04/17 16:47: POC Glucose (mg/dL) 136 H 07/04/17 11:12: POC Glucose (mg/dL) 175 H 07/04/17 07:20: Sodium 142, Potassium 4.5, Chloride 105, Carbon Dioxide 31, Anion Gap 11, BUN 13, Creatinine 0.8, Est GFR ( Amer) > 60, Est GFR (Non- Af Amer) > 60, Random Glucose 142 H, Calcium 9.2, Total Bilirubin 0.2, AST 16, ALT 20, Alkaline Phosphatase 68, Total Protein 5.8, Albumin 3.1, Globulin 2.8, Albumin/Globulin Ratio 1.1 07/04/17 07:20: WBC 4.9, RBC 3.68, Hgb 10.8 L, Hct 33.0 L, MCV 89.7, MCH 29.3, MCHC 32.7, RDW 13.3, Plt Count 163, MPV 8.8 07/04/17 07:08: POC Glucose (mg/dL) 135 H 07/03/17 21:13: POC Glucose (mg/dL) 175 H 07/03/17 15:58: POC Glucose (mg/dL) 112 H 07/03/17 11:21: POC Glucose (mg/dL) 249 H 07/03/17 07:20: POC Glucose (mg/dL) 124 H 07/02/17 21:27: POC Glucose (mg/dL) 142 H 07/02/17 17:15: POC Glucose (mg/dL) 202 H 07/02/17 11:19: POC Glucose (mg/dL) 198 H 07/02/17 07:59: POC Glucose (mg/dL) 143 H 07/02/17 07:00: Valproic Acid 62 07/02/17 07:00: Sodium 142, Potassium 4.3, Chloride 107, Carbon Dioxide 28, Anion Gap 12, BUN 7, Creatinine 0.7, Est GFR ( Amer) > 60, Est GFR (Non- Af Amer) > 60, Random Glucose 166 H, Calcium 9.0, Total Bilirubin 0.2, AST 17, ALT 22, Alkaline Phosphatase 69, Total Protein 5.8, Albumin 3.1, Globulin 2.7, Albumin/Globulin Ratio 1.1 07/02/17 07:00: WBC 5.8, RBC 3.83, Hgb 11.1 L, Hct 34.0 L, MCV 88.8, MCH 29.0, MCHC 32.6, RDW 13.0, Plt Count 165, MPV 8.6 07/01/17 20:55: POC Glucose (mg/dL) 170 H 07/01/17 17:02: POC Glucose (mg/dL) 159 H 07/01/17 11:40: POC Glucose (mg/dL) 218 H 07/01/17 08:17: POC Glucose (mg/dL) 158 H 07/01/17 07:27: POC Glucose (mg/dL) 186 H 07/01/17 07:20: RPR Nonreactive 07/01/17 07:20: Free T4 1.18, TSH 3rd Generation 1.97 07/01/17 07:20: Fasting Glucose 178 H, Triglycerides 171 H, Cholesterol 135, LDL Cholesterol Direct 72, HDL Cholesterol 40 06/30/17 20:54: POC Glucose (mg/dL) 314 H 06/30/17 17:57: POC Glucose (mg/dL) 259 H 06/30/17 14:01: Urine Opiates Screen Negative, Urine Methadone Screen Negative, Ur Barbiturates Screen Negative, Ur Phencyclidine Scrn Negative, Ur Amphetamines Screen Negative, U Benzodiazepines Scrn Positive, U Oth Cocaine Metabols Negative, U Cannabinoids Screen Negative 06/30/17 14:01: Urine Color Light yellow, Urine Appearance Slight-cloudy, Urine pH 6.5, Ur Specific [place] 1.010, Urine Protein Negative, Urine Glucose (UA) >= 1000, Urine Ketones Negative, Urine Blood Trace-intact H, Urine Nitrate Negative , Urine Bilirubin Negative, Urine Urobilinogen 0.2, Ur Leukocyte Esterase Moderate H, Urine RBC 5 - 10, Urine WBC 2 - 5, Ur Epithelial Cells 4 - 5, Urine Other Uyeast 06/30/17 13:23: Alcohol, Quantitative < 10 06/30/17 13:23: Salicylates < 1 L, Acetaminophen < 10.0 L 06/30/17 13:23: Sodium 139, Potassium 4.5, Chloride 103, Carbon Dioxide 27, Anion Gap 13, BUN 7, Creatinine 0.7, Est GFR ( Amer) > 60, Est GFR (Non- Af Amer) > 60, Random Glucose 285 H, Calcium 9.2, Total Bilirubin 0.3, AST 18, ALT 24, Alkaline Phosphatase 64, Total Protein 6.3, Albumin 3.5, Globulin 2.8, Albumin/Globulin Ratio 1.3 06/30/17 13:23: WBC 6.0, RBC 4.05, Hgb 12.0 D, Hct 36.1, MCV 89.1, MCH 29.6, MCHC 33.2, RDW 12.9, Plt Count 188, MPV 9.4, Gran % 72.0 H, Lymph % (Auto) 19.0 L, [place] % (Auto) 8.3 H, Eos % (Auto) 0.5 L, Baso % (Auto) 0.2, Gran # 4.33, Lymph # (Auto) 1.1 L, [place] # (Auto) 0.5, Eos # (Auto) 0.0, Baso # (Auto) 0.01 Vital Signs Temp Pulse Resp BP Pulse Ox 07/04/17 07:15 98.2 F 85 20 114/73 07/03/17 21:40 95 H 125/84 07/03/17 07:38 99.7 F H 95 H 20 141/79 07/02/17 15:00 88 148/90 07/02/17 08:10 98.4 F 95 H 18 145/89 07/01/17 15:00 85 141/79 07/01/17 07:34 98.1 F 89 20 110/60 06/30/17 17:19 98.2 F 101 H 18 137/73 06/30/17 16:40 100 H 18 152/79 H 97 06/30/17 13:04 98.1 F 102 H 16 148/89 98 DSM 5 Symptoms Update: shortly patient is 56 year old Female, reported h/o schizoaffective disorder, multiple psychiatric admissions, including this facility under 's services, as well this magazine writer early this month, pt signed herself from the hospital despite the advise from this magazine writer to stay. pt currently attends [facility] IOP program, pt denied h/o suicidal attempts, but h/o disorganized and psychotic behavior, pt verbalized thoughts of "I don't want to live anymore " to her sister who brought her to the hospital, as per report pt was overmedicating herself. pt needs further evaluation and stabilization. at the time of admission pt was found in catatonic stage, was not able to talk, was moving slowly. over the weekend pt was on 1:1 because risk of falls and disorganized behavior, d/c 1:1. pt was seen today at the treatment team meeting room, pt is more talkative, yesterday over night pt was paranoid, was feeling that people are talking badly about her. . pt tolerates prolixin well, no side effects, pt is on tapering dose of geoeon pt compliant with meds, no side effects observed or reported, AIMS 0, no EPS. DSM 5 Diagnosis: Schizoaffective disorder Medication Change: Yes (prolixin increased, gedodon decreased) Medical Record Reviewed: Yes Consults ordered or reviewed: medical consult appreciated Mental Status Examination - Cognitive Function Orientation: Person, Place Attention: Poor Concentration: Poor - Mood Mood: Depressed (Patient indicates that she is "better and feeling hopeful". States "I want to get better"), Anxious - Affect Affect: Flat, Other (guarded, internally preoccupied) - Formal Thought Process Formal Thought Process: Hallucinations ("I hear my family voices"), Delusions, Paranoia, Other (+speech latency) - Suicidal Ideation Suicidal Ideation: No - Homicidal Ideation Homicidal Ideation: No Goal/Treatment Plan - Goal/Treatment Plan Need for Continued Stay: Remain at risks for inpatient hospitalization, Severe depression anxiety, Discharge may exacerbated symptoms, Severe functional impairment Progress Toward Problem(s) and Goals/Treatment Plan: milieu/structure/supportive therapy klonopin 2mg po tid scheduled, for catatonia and anxiety, pt was on xanax 1mg qid Divalproex [Katharine BLOOM(*BID*)] 500 mg PO DAILY resumed Divalproex [Depakote DR(*BID*)] 1,000 mg PO HS resumed will check on depakote level Venlafaxine [Effexor XR] 150 mg PO DAILY will be continued Zaleplon [Sonata] 5 mg PO HS will be continued Ziprasidone [Geodon Cap] 40 mg PO AM 40mg HS with the plan to wean it off prolixin 7.5mg po amhs for psychosis with the plan to titrate it up medical consult appreciated will call for collaterals from family, SW obtain written consent Will monitor closely Pt was educated about risk/benefits and alternatives of medications, coping strategies (safety plan, suicide prevention), relapse prevention, importance of follow up with psychiatrist and therapist, stay away from drugs/alcohol/smoking Estimated Date of D/C: 07/15/17
[2017-07-06] MEDS: Naproxen 550 mg Tab PO SCH ×2 (08:37→16:32)
[2017-07-06] MEDS: Divalproex 500 mg DR(BID formulation) PO SCH ×2 (08:39→21:01)
[2017-07-06] MEDS: Venlafaxine 75 mg ER Cap PO SCH (08:39)
[2017-07-06] MEDS: POLYETHYLENE GLYCOL 3350 17 GM/Dose PACKET PO SCH (08:40)
[2017-07-06] MEDS: Insulin Reg-LOW-Coverage SC SCH ×4 (08:40→22:19)
--- NOTE | 2017-07-06 10:31 | PN ---
DATE: SUBJECTIVE: She is in the Psychiatric floor. It is over there, she is in good spirits. No complaints. MEDICATIONS: She is on Anaprox, Depakote, Effexor, Geodon, insulin coverage, Januvia, Klonopin, milk of magnesia, Macrobid, Maalox, MiraLax, Prolixin, Sonata, Tylenol . I had a question, which was left off the list. PHYSICAL EXAMINATION VITAL SIGNS: She has 97.9 temperature, 81 pulse, 159/92 blood pressure, 139/77 blood pressure, and 20 respiratory rate. HEENT: Head is atraumatic, normocephalic. HEART: Regular rate. LUNGS: Clear to auscultation. ABDOMEN: Soft, obese, and nontender. She is moving her bowels. EXTREMITIES: No edema. LABORATORY DATA: She has 4.9 white count, 10.8 hemoglobin, 33 hematocrit with 163 platelets. Her last blood sugar was 137 - much better. ASSESSMENT AND PLAN: Overall, I think she is improving. We will continue aggressive treatment and care as per Psychiatry. She has urinary tract infection, suicidal ideations, schizoaffective disorder, diabetes, constipation, and osteoarthritis. We will continue to watch Anna Marie as per Psychiatry. Darek Ramirez DO
[2017-07-06] MEDS: Cholestyramine 4 gm/Pkt UD PO SCH (11:54)
--- NOTE | 2017-07-06 14:27 | PCM.PYCHPN ---
Psychiatric Progress Note - Psychiatric Progress Note Patient seen today, length of contact: 30min Patient Chief Complaint: "I don't remember when I was hearing voices last" Problems Identified/Issues Discussed: Suicide/ homicide prevention, past psychiatric h/o, current psychiatric symptoms , medical problems, risk/benefits and alternatives of medications, medications compliance, coping strategies, substance abuse h/o, relapse prevention, importance of follow up with psychiatrist and therapist, discharge plan. Medical Problems: obesity, dyslipidemia, hypothyroidism Diagnostic Results: 07/04/17 07:20 07/04/17 07:20 Lab Results 07/04/17 16:47: POC Glucose (mg/dL) 136 H 07/04/17 11:12: POC Glucose (mg/dL) 175 H 07/04/17 07:20: Sodium 142, Potassium 4.5, Chloride 105, Carbon Dioxide 31, Anion Gap 11, BUN 13, Creatinine 0.8, Est GFR ( Amer) > 60, Est GFR (Non- Af Amer) > 60, Random Glucose 142 H, Calcium 9.2, Total Bilirubin 0.2, AST 16, ALT 20, Alkaline Phosphatase 68, Total Protein 5.8, Albumin 3.1, Globulin 2.8, Albumin/Globulin Ratio 1.1 07/04/17 07:20: WBC 4.9, RBC 3.68, Hgb 10.8 L, Hct 33.0 L, MCV 89.7, MCH 29.3, MCHC 32.7, RDW 13.3, Plt Count 163, MPV 8.8 07/04/17 07:08: POC Glucose (mg/dL) 135 H 07/03/17 21:13: POC Glucose (mg/dL) 175 H 07/03/17 15:58: POC Glucose (mg/dL) 112 H 07/03/17 11:21: POC Glucose (mg/dL) 249 H 07/03/17 07:20: POC Glucose (mg/dL) 124 H 07/02/17 21:27: POC Glucose (mg/dL) 142 H 07/02/17 17:15: POC Glucose (mg/dL) 202 H 07/02/17 11:19: POC Glucose (mg/dL) 198 H 07/02/17 07:59: POC Glucose (mg/dL) 143 H 07/02/17 07:00: Valproic Acid 62 07/02/17 07:00: Sodium 142, Potassium 4.3, Chloride 107, Carbon Dioxide 28, Anion Gap 12, BUN 7, Creatinine 0.7, Est GFR ( Amer) > 60, Est GFR (Non- Af Amer) > 60, Random Glucose 166 H, Calcium 9.0, Total Bilirubin 0.2, AST 17, ALT 22, Alkaline Phosphatase 69, Total Protein 5.8, Albumin 3.1, Globulin 2.7, Albumin/Globulin Ratio 1.1 07/02/17 07:00: WBC 5.8, RBC 3.83, Hgb 11.1 L, Hct 34.0 L, MCV 88.8, MCH 29.0, MCHC 32.6, RDW 13.0, Plt Count 165, MPV 8.6 07/01/17 20:55: POC Glucose (mg/dL) 170 H 07/01/17 17:02: POC Glucose (mg/dL) 159 H 07/01/17 11:40: POC Glucose (mg/dL) 218 H 07/01/17 08:17: POC Glucose (mg/dL) 158 H 07/01/17 07:27: POC Glucose (mg/dL) 186 H 07/01/17 07:20: RPR Nonreactive 07/01/17 07:20: Free T4 1.18, TSH 3rd Generation 1.97 07/01/17 07:20: Fasting Glucose 178 H, Triglycerides 171 H, Cholesterol 135, LDL Cholesterol Direct 72, HDL Cholesterol 40 06/30/17 20:54: POC Glucose (mg/dL) 314 H 06/30/17 17:57: POC Glucose (mg/dL) 259 H 06/30/17 14:01: Urine Opiates Screen Negative, Urine Methadone Screen Negative, Ur Barbiturates Screen Negative, Ur Phencyclidine Scrn Negative, Ur Amphetamines Screen Negative, U Benzodiazepines Scrn Positive, U Oth Cocaine Metabols Negative, U Cannabinoids Screen Negative 06/30/17 14:01: Urine Color Light yellow, Urine Appearance Slight-cloudy, Urine pH 6.5, Ur Specific [place] 1.010, Urine Protein Negative, Urine Glucose (UA) >= 1000, Urine Ketones Negative, Urine Blood Trace-intact H, Urine Nitrate Negative , Urine Bilirubin Negative, Urine Urobilinogen 0.2, Ur Leukocyte Esterase Moderate H, Urine RBC 5 - 10, Urine WBC 2 - 5, Ur Epithelial Cells 4 - 5, Urine Other Uyeast 06/30/17 13:23: Alcohol, Quantitative < 10 06/30/17 13:23: Salicylates < 1 L, Acetaminophen < 10.0 L 06/30/17 13:23: Sodium 139, Potassium 4.5, Chloride 103, Carbon Dioxide 27, Anion Gap 13, BUN 7, Creatinine 0.7, Est GFR ( Amer) > 60, Est GFR (Non- Af Amer) > 60, Random Glucose 285 H, Calcium 9.2, Total Bilirubin 0.3, AST 18, ALT 24, Alkaline Phosphatase 64, Total Protein 6.3, Albumin 3.5, Globulin 2.8, Albumin/Globulin Ratio 1.3 06/30/17 13:23: WBC 6.0, RBC 4.05, Hgb 12.0 D, Hct 36.1, MCV 89.1, MCH 29.6, MCHC 33.2, RDW 12.9, Plt Count 188, MPV 9.4, Gran % 72.0 H, Lymph % (Auto) 19.0 L, [place] % (Auto) 8.3 H, Eos % (Auto) 0.5 L, Baso % (Auto) 0.2, Gran # 4.33, Lymph # (Auto) 1.1 L, [place] # (Auto) 0.5, Eos # (Auto) 0.0, Baso # (Auto) 0.01 Vital Signs Temp Pulse Resp BP Pulse Ox 07/04/17 07:15 98.2 F 85 20 114/73 07/03/17 21:40 95 H 125/84 07/03/17 07:38 99.7 F H 95 H 20 141/79 07/02/17 15:00 88 148/90 07/02/17 08:10 98.4 F 95 H 18 145/89 07/01/17 15:00 85 141/79 07/01/17 07:34 98.1 F 89 20 110/60 06/30/17 17:19 98.2 F 101 H 18 137/73 06/30/17 16:40 100 H 18 152/79 H 97 06/30/17 13:04 98.1 F 102 H 16 148/89 98 DSM 5 Symptoms Update: shortly patient is 56 year old Female, reported h/o schizoaffective disorder, multiple psychiatric admissions, including this facility under 's services, 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 pt currently attends [facility] IOP program, pt denied h/o suicidal attempts, but h/o disorganized and psychotic behavior, pt verbalized thoughts of "I don't want to live anymore " to her sister who brought her to the hospital, as per report pt was overmedicating herself. pt needs further evaluation and stabilization. pt was seen at the treatment team room today with medical student, pt has poor personal hygiene, short/greasy/uncombed hair, pt was denying any psychotic symptoms, but as per staff pt is paranoid, but some improvement. pt tolerates prolixin well, no side effects, pt is on tapering dose of geoeon pt compliant with meds, no side effects observed or reported, AIMS 0, no EPS. DSM 5 Diagnosis: Schizoaffective disorder Medication Change: Yes (prolixin increased, gedodon decreased) Medical Record Reviewed: Yes Consults ordered or reviewed: medical consult appreciated Mental Status Examination - Cognitive Function Orientation: Person, Place Attention: Poor Concentration: Poor - Mood Mood: Depressed (Patient indicates that she is "better and feeling hopeful". States "I want to get better"), Anxious - Affect Affect: Flat, Other (guarded, internally preoccupied) - Formal Thought Process Formal Thought Process: Hallucinations ("I hear my family voices"), Delusions, Paranoia, Other (+speech latency) - Suicidal Ideation Suicidal Ideation: No - Homicidal Ideation Homicidal Ideation: No Goal/Treatment Plan - Goal/Treatment Plan Need for Continued Stay: Remain at risks for inpatient hospitalization, Severe depression anxiety, Discharge may exacerbated symptoms, Severe functional impairment Progress Toward Problem(s) and Goals/Treatment Plan: milieu/structure/supportive therapy klonopin 1.5mg po tid scheduled, for catatonia and anxiety, pt was on xanax 1mg qid Divalproex [Depakote DR(*BID*)] 500 mg PO DAILY resumed Divalproex [Depakote DR(*BID*)] 1,000 mg PO HS resumed will check on depakote level Venlafaxine [Effexor XR] 150 mg PO DAILY will be continued Zaleplon [Sonata] 5 mg PO HS will be continued Ziprasidone [Geodon Cap] 20mg po tid with the plan to wean it off prolixin 10mg po amhs for psychosis with the plan to titrate it up medical consult appreciated will call for collaterals from family, SW obtain written consent Will monitor closely Pt was educated about risk/benefits and alternatives of medications, coping strategies (safety plan, suicide prevention), relapse prevention, importance of follow up with psychiatrist and therapist, stay away from drugs/alcohol/smoking Estimated Date of D/C: 07/15/17
[2017-07-06] MEDS: Nystatin 100,000 Units/gm Topical Pow(15 gm) TOP SCH (17:26)
[2017-07-07] MEDS: POLYETHYLENE GLYCOL 3350 17 GM/Dose PACKET PO SCH (08:57)
[2017-07-07] MEDS: Venlafaxine 75 mg ER Cap PO SCH (08:57)
[2017-07-07] MEDS: Divalproex 500 mg DR(BID formulation) PO SCH ×2 (08:58→21:03)
[2017-07-07] MEDS: Naproxen 550 mg Tab PO SCH ×2 (09:00→18:13)
[2017-07-07] MEDS: Nystatin 100,000 Units/gm Topical Pow(15 gm) TOP SCH ×2 (09:01→18:14)
[2017-07-07] MEDS: Insulin Reg-LOW-Coverage SC SCH ×4 (09:01→21:06)
[2017-07-07] MEDS: Cholestyramine 4 gm/Pkt UD PO SCH (09:28)
--- NOTE | 2017-07-07 11:55 | PN ---
DATE: SUBJECTIVE: I saw her in her room. She is doing okay, still a little bit depressed, but she is eating; moving her bowels. She is on Anaprox, Depakote, Effexor, Geodon, insulin, Januvia, Klonopin, Maalox, milk of magnesia, MiraLax, nystatin topical powder, Prolactin, Questran, Sonata, and Tylenol. PHYSICAL EXAMINATION VITAL SIGNS: She has 97.8 temperature, 76 pulse, 134/75 blood pressure, 20 respiratory rate. HEENT: Head is atraumatic, normocephalic. HEART: Regular rate. LUNGS: Clear to auscultation. ABDOMEN: Soft, obese, and nontender. Positive bowel sounds. EXTREMITIES: No edema. ASSESSMENT AND PLAN: She is doing okay. She is improving mentally, her last blood sugar was 113. Blood sugars have all been in the 100s in the past 24 hours, which is better. We will continue aggressive treatment and care for her. Encouraged to drink lots of water. She has had urinary tract infection, suicidal ideation, schizoaffective disorder, diabetes, constipation, osteoarthritis. Darek Ramirez DO
--- NOTE | 2017-07-07 14:30 | PCM.PYCHPN ---
Psychiatric Progress Note - Psychiatric Progress Note Patient seen today, length of contact: 30min Patient Chief Complaint: "I do not understand why do you want me to take medication and sleep hold a long ?", Off note, it was not topic of the conversation, patient just showed up in the room and asked this question. Problems Identified/Issues Discussed: Suicide/ homicide prevention, past psychiatric h/o, current psychiatric symptoms , medical problems, risk/benefits and alternatives of medications, medications compliance, coping strategies, substance abuse h/o, relapse prevention, importance of follow up with psychiatrist and therapist, discharge plan. Medical Problems: obesity, dyslipidemia, hypothyroidism Diagnostic Results: 07/04/17 07:20 07/04/17 07:20 Lab Results 07/04/17 16:47: POC Glucose (mg/dL) 136 H 07/04/17 11:12: POC Glucose (mg/dL) 175 H 07/04/17 07:20: Sodium 142, Potassium 4.5, Chloride 105, Carbon Dioxide 31, Anion Gap 11, BUN 13, Creatinine 0.8, Est GFR ( Amer) > 60, Est GFR (Non- Af Amer) > 60, Random Glucose 142 H, Calcium 9.2, Total Bilirubin 0.2, AST 16, ALT 20, Alkaline Phosphatase 68, Total Protein 5.8, Albumin 3.1, Globulin 2.8, Albumin/Globulin Ratio 1.1 07/04/17 07:20: WBC 4.9, RBC 3.68, Hgb 10.8 L, Hct 33.0 L, MCV 89.7, MCH 29.3, MCHC 32.7, RDW 13.3, Plt Count 163, MPV 8.8 07/04/17 07:08: POC Glucose (mg/dL) 135 H 07/03/17 21:13: POC Glucose (mg/dL) 175 H 07/03/17 15:58: POC Glucose (mg/dL) 112 H 07/03/17 11:21: POC Glucose (mg/dL) 249 H 07/03/17 07:20: POC Glucose (mg/dL) 124 H 07/02/17 21:27: POC Glucose (mg/dL) 142 H 07/02/17 17:15: POC Glucose (mg/dL) 202 H 07/02/17 11:19: POC Glucose (mg/dL) 198 H 07/02/17 07:59: POC Glucose (mg/dL) 143 H 07/02/17 07:00: Valproic Acid 62 07/02/17 07:00: Sodium 142, Potassium 4.3, Chloride 107, Carbon Dioxide 28, Anion Gap 12, BUN 7, Creatinine 0.7, Est GFR ( Amer) > 60, Est GFR (Non- Af Amer) > 60, Random Glucose 166 H, Calcium 9.0, Total Bilirubin 0.2, AST 17, ALT 22, Alkaline Phosphatase 69, Total Protein 5.8, Albumin 3.1, Globulin 2.7, Albumin/Globulin Ratio 1.1 07/02/17 07:00: WBC 5.8, RBC 3.83, Hgb 11.1 L, Hct 34.0 L, MCV 88.8, MCH 29.0, MCHC 32.6, RDW 13.0, Plt Count 165, MPV 8.6 07/01/17 20:55: POC Glucose (mg/dL) 170 H 07/01/17 17:02: POC Glucose (mg/dL) 159 H 07/01/17 11:40: POC Glucose (mg/dL) 218 H 07/01/17 08:17: POC Glucose (mg/dL) 158 H 07/01/17 07:27: POC Glucose (mg/dL) 186 H 07/01/17 07:20: RPR Nonreactive 07/01/17 07:20: Free T4 1.18, TSH 3rd Generation 1.97 07/01/17 07:20: Fasting Glucose 178 H, Triglycerides 171 H, Cholesterol 135, LDL Cholesterol Direct 72, HDL Cholesterol 40 06/30/17 20:54: POC Glucose (mg/dL) 314 H 06/30/17 17:57: POC Glucose (mg/dL) 259 H 06/30/17 14:01: Urine Opiates Screen Negative, Urine Methadone Screen Negative, Ur Barbiturates Screen Negative, Ur Phencyclidine Scrn Negative, Ur Amphetamines Screen Negative, U Benzodiazepines Scrn Positive, U Oth Cocaine Metabols Negative, U Cannabinoids Screen Negative 06/30/17 14:01: Urine Color Light yellow, Urine Appearance Slight-cloudy, Urine pH 6.5, Ur Specific [place] 1.010, Urine Protein Negative, Urine Glucose (UA) >= 1000, Urine Ketones Negative, Urine Blood Trace-intact H, Urine Nitrate Negative , Urine Bilirubin Negative, Urine Urobilinogen 0.2, Ur Leukocyte Esterase Moderate H, Urine RBC 5 - 10, Urine WBC 2 - 5, Ur Epithelial Cells 4 - 5, Urine Other Uyeast 06/30/17 13:23: Alcohol, Quantitative < 10 06/30/17 13:23: Salicylates < 1 L, Acetaminophen < 10.0 L 06/30/17 13:23: Sodium 139, Potassium 4.5, Chloride 103, Carbon Dioxide 27, Anion Gap 13, BUN 7, Creatinine 0.7, Est GFR ( Amer) > 60, Est GFR (Non- Af Amer) > 60, Random Glucose 285 H, Calcium 9.2, Total Bilirubin 0.3, AST 18, ALT 24, Alkaline Phosphatase 64, Total Protein 6.3, Albumin 3.5, Globulin 2.8, Albumin/Globulin Ratio 1.3 06/30/17 13:23: WBC 6.0, RBC 4.05, Hgb 12.0 D, Hct 36.1, MCV 89.1, MCH 29.6, MCHC 33.2, RDW 12.9, Plt Count 188, MPV 9.4, Gran % 72.0 H, Lymph % (Auto) 19.0 L, [place] % (Auto) 8.3 H, Eos % (Auto) 0.5 L, Baso % (Auto) 0.2, Gran # 4.33, Lymph # (Auto) 1.1 L, [place] # (Auto) 0.5, Eos # (Auto) 0.0, Baso # (Auto) 0.01 Vital Signs Temp Pulse Resp BP Pulse Ox 07/04/17 07:15 98.2 F 85 20 114/73 07/03/17 21:40 95 H 125/84 07/03/17 07:38 99.7 F H 95 H 20 141/79 07/02/17 15:00 88 148/90 07/02/17 08:10 98.4 F 95 H 18 145/89 07/01/17 15:00 85 141/79 07/01/17 07:34 98.1 F 89 20 110/60 06/30/17 17:19 98.2 F 101 H 18 137/73 06/30/17 16:40 100 H 18 152/79 H 97 06/30/17 13:04 98.1 F 102 H 16 148/89 98 DSM 5 Symptoms Update: shortly patient is 56 year old Female, reported h/o schizoaffective disorder, multiple psychiatric admissions, including this facility under 's services, 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 pt currently attends [facility] IOP program, pt denied h/o suicidal attempts, but h/o disorganized and psychotic behavior, pt verbalized thoughts of "I don't want to live anymore " to her sister who brought her to the hospital, as per report pt was overmedicating herself. pt needs further evaluation and stabilization. pt was seen at the treatment team room today with medical student, pt has poor personal hygiene, 07/06/17 [place], pt was able to draw a clock, was able to memorize two objects. hygiene is improving pt tolerates Prolixin well, geodon is on tapering dose pt is disorganized keeps coming back to the room, was asking random questions. pt compliant with meds, no side effects observed or reported, AIMS 0, no EPS. DSM 5 Diagnosis: Schizoaffective disorder Medication Change: Yes (prolixin increased, gedodon decreased) Medical Record Reviewed: Yes Consults ordered or reviewed: medical consult appreciated Mental Status Examination - Cognitive Function Orientation: Person, Place Attention: Poor Concentration: Poor - Mood Mood: Depressed (Patient indicates that she is "better and feeling hopeful". States "I want to get better"), Anxious - Affect Affect: Flat, Other (guarded, internally preoccupied) - Formal Thought Process Formal Thought Process: Hallucinations ("I hear my family voices"), Delusions, Paranoia, Other (+speech latency) - Suicidal Ideation Suicidal Ideation: No - Homicidal Ideation Homicidal Ideation: No Goal/Treatment Plan - Goal/Treatment Plan Need for Continued Stay: Remain at risks for inpatient hospitalization, Severe depression anxiety, Discharge may exacerbated symptoms, Severe functional impairment Progress Toward Problem(s) and Goals/Treatment Plan: milieu/structure/supportive therapy klonopin 1.5mg po tid scheduled, for catatonia and anxiety, pt was on xanax 1mg qid Divalproex [Katharine BLOOM(*BID*)] 500 mg PO DAILY resumed Divalproex [Depakolalit BLOOM(*BID*)] 1,000 mg PO HS resumed will check on depakote level 62 07/02/17 Venlafaxine [Effexor XR] 150 mg PO DAILY will be continued Zaleplon [Sonata] 5 mg PO HS will be continued Ziprasidone [Geodon Cap] 20mg po bid with the plan to wean it off prolixin 10mg po amhs for psychosis with the plan to titrate it up medical consult appreciated will call for collaterals from family, SW obtain written consent Will monitor closely Pt was educated about risk/benefits and alternatives of medications, coping strategies (safety plan, suicide prevention), relapse prevention, importance of follow up with psychiatrist and therapist, stay away from drugs/alcohol/smoking Estimated Date of D/C: 07/15/17
[2017-07-07] MEDS: Alum-Mag Hydrox-Simethicone Susp (30 mL) PO PRN (15:14)
[2017-07-08] MEDS: Insulin Reg-LOW-Coverage SC SCH ×4 (08:08→21:27)
[2017-07-08] MEDS: Naproxen 550 mg Tab PO SCH ×2 (08:15→16:55)
[2017-07-08] MEDS: Venlafaxine 75 mg ER Cap PO SCH (08:16)
[2017-07-08] MEDS: Cholestyramine 4 gm/Pkt UD PO SCH (08:17)
[2017-07-08] MEDS: POLYETHYLENE GLYCOL 3350 17 GM/Dose PACKET PO SCH (08:17)
[2017-07-08] MEDS: Divalproex 500 mg DR(BID formulation) PO SCH ×2 (08:19→21:11)
[2017-07-08] MEDS: Nystatin 100,000 Units/gm Topical Pow(15 gm) TOP SCH ×2 (08:26→16:55)
--- NOTE | 2017-07-08 14:16 | PN ---
DATE: SUBJECTIVE: I saw her resting comfortably in bed. She slept well. She is eating well. She is doing better. She is trying to participate well. Feel that mentally she is coming around. MEDICATIONS: She is on Anaprox, Depakote, Effexor, Geodon, insulin, Januvia, Klonopin, Maalox, milk of magnesia, MiraLax, nystatin powder, Prolixin, Questran, Sonata, and Tylenol. PHYSICAL EXAMINATION: VITAL SIGNS: A 97.9 temperature, 76 pulse, 131/63 blood pressure, 20 respiratory rate. HEENT: Head is atraumatic, normocephalic. HEART: Regular rate. LUNGS: Clear to auscultation. ABDOMEN: Soft, obese, nontender. EXTREMITIES: Have no edema. LABORATORY DATA: Last labs on the , she has a 4.9 white count, 10.8 hemoglobin, 163 platelets. Last blood sugar was 128, doing much better. ASSESSMENT AND PLAN: She is being seen by Psychiatry. She is here for numerous reasons, urinary tract infection, suicidal ideation, schizoaffective disorder, diabetes, constipation, osteoarthritis. Continue treatment as per Psychiatry Darek Ramirez DO MTDD
--- NOTE | 2017-07-08 14:59 | PCM.PYCHPN ---
Psychiatric Progress Note - Psychiatric Progress Note Patient seen today, length of contact: 30min Patient Chief Complaint: "I am doing little better" Problems Identified/Issues Discussed: Suicide/ homicide prevention, past psychiatric h/o, current psychiatric symptoms , medical problems, risk/benefits and alternatives of medications, medications compliance, coping strategies, substance abuse h/o, relapse prevention, importance of follow up with psychiatrist and therapist, discharge plan. Medical Problems: obesity, dyslipidemia, hypothyroidism Diagnostic Results: 07/04/17 07:20 07/04/17 07:20 Lab Results 07/04/17 16:47: POC Glucose (mg/dL) 136 H 07/04/17 11:12: POC Glucose (mg/dL) 175 H 07/04/17 07:20: Sodium 142, Potassium 4.5, Chloride 105, Carbon Dioxide 31, Anion Gap 11, BUN 13, Creatinine 0.8, Est GFR ( Amer) > 60, Est GFR (Non- Af Amer) > 60, Random Glucose 142 H, Calcium 9.2, Total Bilirubin 0.2, AST 16, ALT 20, Alkaline Phosphatase 68, Total Protein 5.8, Albumin 3.1, Globulin 2.8, Albumin/Globulin Ratio 1.1 07/04/17 07:20: WBC 4.9, RBC 3.68, Hgb 10.8 L, Hct 33.0 L, MCV 89.7, MCH 29.3, MCHC 32.7, RDW 13.3, Plt Count 163, MPV 8.8 07/04/17 07:08: POC Glucose (mg/dL) 135 H 07/03/17 21:13: POC Glucose (mg/dL) 175 H 07/03/17 15:58: POC Glucose (mg/dL) 112 H 07/03/17 11:21: POC Glucose (mg/dL) 249 H 07/03/17 07:20: POC Glucose (mg/dL) 124 H 07/02/17 21:27: POC Glucose (mg/dL) 142 H 07/02/17 17:15: POC Glucose (mg/dL) 202 H 07/02/17 11:19: POC Glucose (mg/dL) 198 H 07/02/17 07:59: POC Glucose (mg/dL) 143 H 07/02/17 07:00: Valproic Acid 62 07/02/17 07:00: Sodium 142, Potassium 4.3, Chloride 107, Carbon Dioxide 28, Anion Gap 12, BUN 7, Creatinine 0.7, Est GFR ( Amer) > 60, Est GFR (Non- Af Amer) > 60, Random Glucose 166 H, Calcium 9.0, Total Bilirubin 0.2, AST 17, ALT 22, Alkaline Phosphatase 69, Total Protein 5.8, Albumin 3.1, Globulin 2.7, Albumin/Globulin Ratio 1.1 07/02/17 07:00: WBC 5.8, RBC 3.83, Hgb 11.1 L, Hct 34.0 L, MCV 88.8, MCH 29.0, MCHC 32.6, RDW 13.0, Plt Count 165, MPV 8.6 07/01/17 20:55: POC Glucose (mg/dL) 170 H 07/01/17 17:02: POC Glucose (mg/dL) 159 H 07/01/17 11:40: POC Glucose (mg/dL) 218 H 07/01/17 08:17: POC Glucose (mg/dL) 158 H 07/01/17 07:27: POC Glucose (mg/dL) 186 H 07/01/17 07:20: RPR Nonreactive 07/01/17 07:20: Free T4 1.18, TSH 3rd Generation 1.97 07/01/17 07:20: Fasting Glucose 178 H, Triglycerides 171 H, Cholesterol 135, LDL Cholesterol Direct 72, HDL Cholesterol 40 06/30/17 20:54: POC Glucose (mg/dL) 314 H 06/30/17 17:57: POC Glucose (mg/dL) 259 H 06/30/17 14:01: Urine Opiates Screen Negative, Urine Methadone Screen Negative, Ur Barbiturates Screen Negative, Ur Phencyclidine Scrn Negative, Ur Amphetamines Screen Negative, U Benzodiazepines Scrn Positive, U Oth Cocaine Metabols Negative, U Cannabinoids Screen Negative 06/30/17 14:01: Urine Color Light yellow, Urine Appearance Slight-cloudy, Urine pH 6.5, Ur Specific Ione 1.010, Urine Protein Negative, Urine Glucose (UA) >= 1000, Urine Ketones Negative, Urine Blood Trace-intact H, Urine Nitrate Negative , Urine Bilirubin Negative, Urine Urobilinogen 0.2, Ur Leukocyte Esterase Moderate H, Urine RBC 5 - 10, Urine WBC 2 - 5, Ur Epithelial Cells 4 - 5, Urine Other Uyeast 06/30/17 13:23: Alcohol, Quantitative < 10 06/30/17 13:23: Salicylates < 1 L, Acetaminophen < 10.0 L 06/30/17 13:23: Sodium 139, Potassium 4.5, Chloride 103, Carbon Dioxide 27, Anion Gap 13, BUN 7, Creatinine 0.7, Est GFR ( Amer) > 60, Est GFR (Non- Af Amer) > 60, Random Glucose 285 H, Calcium 9.2, Total Bilirubin 0.3, AST 18, ALT 24, Alkaline Phosphatase 64, Total Protein 6.3, Albumin 3.5, Globulin 2.8, Albumin/Globulin Ratio 1.3 06/30/17 13:23: WBC 6.0, RBC 4.05, Hgb 12.0 D, Hct 36.1, MCV 89.1, MCH 29.6, MCHC 33.2, RDW 12.9, Plt Count 188, MPV 9.4, Gran % 72.0 H, Lymph % (Auto) 19.0 L, [place] % (Auto) 8.3 H, Eos % (Auto) 0.5 L, Baso % (Auto) 0.2, Gran # 4.33, Lymph # (Auto) 1.1 L, [place] # (Auto) 0.5, Eos # (Auto) 0.0, Baso # (Auto) 0.01 Vital Signs Temp Pulse Resp BP Pulse Ox 07/04/17 07:15 98.2 F 85 20 114/73 07/03/17 21:40 95 H 125/84 07/03/17 07:38 99.7 F H 95 H 20 141/79 07/02/17 15:00 88 148/90 07/02/17 08:10 98.4 F 95 H 18 145/89 07/01/17 15:00 85 141/79 07/01/17 07:34 98.1 F 89 20 110/60 06/30/17 17:19 98.2 F 101 H 18 137/73 06/30/17 16:40 100 H 18 152/79 H 97 06/30/17 13:04 98.1 F 102 H 16 148/89 98 Temp Pulse Resp BP Pulse Ox 97.9 F 76 20 131/63 97 03/02/18 07:11 07/08/17 07:11 07/08/17 07:11 07/08/17 07:11 06/30/17 16:40 Laboratory Results - last 24 hr 07/07/17 07/07/17 07/08/17 16:11 20:53 07:34 POC Glucose (mg/dL) 168 H 162 H 128 H 07/08/17 11:43 POC Glucose (mg/dL) 171 H DSM 5 Symptoms Update: shortly patient is 56 year old Female, reported h/o schizoaffective disorder, multiple psychiatric admissions, including this facility under 's services, as well this video game script writer early this month, pt signed herself from the hospital despite the advise from this video game script writer to stay. pt currently attends [facility] IOP program, pt denied h/o suicidal attempts, but h/o disorganized and psychotic behavior, pt verbalized thoughts of "I don't want to live anymore " to her sister who brought her to the hospital, as per report pt was overmedicating herself. pt needs further evaluation and stabilization. pt was seen at the treatment team meeting today, hygiene is improving, but still far from ideal, pt still has psychomotor retardation. pt said "I feel little better...", pt denied v/a/t hallucinations. 07/06/17 MINI COG, pt was able to draw a clock, was able to memorize two objects. hygiene is improving pt tolerates Prolixin well, geodon was d/c today pt compliant with meds, no side effects observed or reported, AIMS 0, no EPS. DSM 5 Diagnosis: Schizoaffective disorder Medication Change: Yes (prolixin increased, gedodon d/c, klonopin decreased) Medical Record Reviewed: Yes Consults ordered or reviewed: medical consult appreciated Mental Status Examination - Cognitive Function Orientation: Person, Place Attention: Poor Concentration: Poor Association: Loose Fund of Knowledge: WNL - Mood Mood: Depressed (Patient indicates that she is "better and feeling hopeful". States "I want to get better"), Anxious - Affect Affect: Flat, Other (guarded, internally preoccupied) - Formal Thought Process Formal Thought Process: Hallucinations (denied), Delusions (denied), Paranoia, Other (+speech latency) - Suicidal Ideation Suicidal Ideation: No - Homicidal Ideation Homicidal Ideation: No Goal/Treatment Plan - Goal/Treatment Plan Need for Continued Stay: Remain at risks for inpatient hospitalization, Severe depression anxiety, Discharge may exacerbated symptoms, Severe functional impairment Progress Toward Problem(s) and Goals/Treatment Plan: milieu/structure/supportive therapy klonopin decreased to 1mg po tid scheduled, for catatonia and anxiety, (pt was on xanax 1mg qid) Divalproex [Depakote DR(*BID*)] 500 mg PO DAILY resumed Divalproex [Depakote DR(*BID*)] 1,000 mg PO HS resumed will check on depakote level 62 07/02/17 Venlafaxine [Effexor XR] 150 mg PO DAILY will be continued Zaleplon [Sonata] 5 mg PO HS will be continued Ziprasidone d/c prolixin 10mg po tid for psychosis with the plan to titrate it up medical consult appreciated will call for collaterals from family, SW obtain written consent Will monitor closely Pt was educated about risk/benefits and alternatives of medications, coping strategies (safety plan, suicide prevention), relapse prevention, importance of follow up with psychiatrist and therapist, stay away from drugs/alcohol/smoking Estimated Date of D/C: 07/15/17
--- NOTE | 2017-07-08 16:58 | PCM.BM ---
<Alida Meeks Y - Last Filed: 07/08/17 16:58> Treatment Plan Problems - Problems identified on initial assessmt ALTERED THOUGHT PROCESS Date Initiated: 06/30/17 Time Initiated: 18:02 Assessment reference: HP, NA Status: Active HALLUCINATIONS Date Initiated: 06/30/17 Time Initiated: 18:03 Assessment reference: HP, NA Status: Active SELF CARE DEFICIT Time Initiated: 18:04 Assessment reference: HP, NA Status: Active Treatment assets and liabiliti Patient Assests: adapts well, cooperative, ADL independent, negotiates basic needs Patient Liabilities: poor support system, relationship conflicts, medical problems, other - Milieu Protocol Maintain good personal hygiene: daily Encourage regular showers, daily Remind patient to perform daily oral care, daily Assist patient to perform ADL's Maintain personal safety: daily Educate patient to report safety concerns to staff, daily Monitor environment for contraband/sharps Medication safety: Monitor for expected outcome, potential side effects: daily, Assess barriers to learning: daily, Assess readiness for medication education: daily Milieu Narrative: milieu/structure/supportive therapy klonopin decreased to 1mg po tid scheduled, for catatonia and anxiety, (pt was on xanax 1mg qid) Divalproex [Depakote DR(*BID*)] 500 mg PO DAILY resumed Divalproex [Depakote DR(*BID*)] 1,000 mg PO HS resumed will check on depakote level 62 07/02/17 Venlafaxine [Effexor XR] 150 mg PO DAILY will be continued Zaleplon [Sonata] 5 mg PO HS will be continued Ziprasidone d/c prolixin 10mg po tid for psychosis with the plan to titrate it up medical consult appreciated will call for collaterals from family, SW obtain written consent Will monitor closely Pt was educated about risk/benefits and alternatives of medications, coping strategies (safety plan, suicide prevention), relapse prevention, importance of follow up with psychiatrist and therapist, stay away from drugs/alcohol/smoking Family Contact Family involvement: Family/SO is involved Family contact: Patient agrees to contact Family contact name: Mallory Hou(sister) Family contacted how many times per week?: 2 Discharge/Continuing Care - Education Needs Education Needs: Patient Medication, Patient Diagnosis/Disease Process, Patient Coping Skills, Patient Anger Management skills, Patient Placement options, Patient Community resources, Patient Activities of Daily Living, Patient Health Practices/Safety, Patient Aftercare Safety Plan - Discharge Discharge Criteria: Tolerates medication w/o severe side effects, Free of paranoid thoughts, Free of agitation, Normal sleep pattern, Ability to care for self, Reduction of target symptoms Discharge to:: Home - Treatment Team Participation Patient/Family/SO Statement: milieu/structure/supportive therapy klonopin decreased to 1mg po tid scheduled, for catatonia and anxiety, (pt was on xanax 1mg qid) Divalproex [Depakote DR(*BID*)] 500 mg PO DAILY resumed Divalproex [Depakote DR(*BID*)] 1,000 mg PO HS resumed will check on depakote level 62 07/02/17 Venlafaxine [Effexor XR] 150 mg PO DAILY will be continued Zaleplon [Sonata] 5 mg PO HS will be continued Ziprasidone d/c prolixin 10mg po tid for psychosis with the plan to titrate it up medical consult appreciated will call for collaterals from family, SW obtain written consent Will monitor closely Pt was educated about risk/benefits and alternatives of medications, coping strategies (safety plan, suicide prevention), relapse prevention, importance of follow up with psychiatrist and therapist, stay away from drugs/alcohol/smoking Treatment Plan Review - Problem ALTERED THOUGHT PROCESS Time Initiated: 18:02 HALLUCINATIONS Time Initiated: 18:03 SELF CARE DEFICIT Time Initiated: 18:04 <Tiffany Loredo - Last Filed: 07/08/17 17:03> Treatment Plan Review - Problem ALTERED THOUGHT PROCESS Date Initiated: 07/08/17 Progress toward outcomes: improved HALLUCINATIONS Date Initiated: 07/08/17 Progress toward outcomes: improved SELF CARE DEFICIT Date Initiated: 07/08/17 Progress toward outcomes: improved <Eladia Valentine - Last Filed: 07/11/17 13:59> - Diagnosis (1) Schizoaffective disorder, depressive type Status: Acute Interventions: 07/11/17 13:56 meds have changed, pt tolerated them well, no side effects observed or reported. pt is not interested to have prolixin decannoate thought process better organized pt still mildly paranoid but much improvement relapse prevention coping strategies pt denied thoughts of harming self or others no agitation or aggression
[2017-07-09] MEDS: Insulin Reg-LOW-Coverage SC SCH ×3 (08:29→17:19)
[2017-07-09] MEDS: Venlafaxine 75 mg ER Cap PO SCH (08:29)
[2017-07-09] MEDS: Naproxen 550 mg Tab PO SCH ×2 (08:29→17:21)
[2017-07-09] MEDS: Divalproex 500 mg DR(BID formulation) PO SCH ×2 (08:29→21:09)
[2017-07-09] MEDS: Nystatin 100,000 Units/gm Topical Pow(15 gm) TOP SCH ×2 (08:30→17:21)
[2017-07-09] MEDS: POLYETHYLENE GLYCOL 3350 17 GM/Dose PACKET PO SCH (08:30)
[2017-07-09] MEDS: Cholestyramine 4 gm/Pkt UD PO SCH (08:30)
--- NOTE | 2017-07-09 09:15 | PCM.PYCHPN ---
Psychiatric Progress Note - Psychiatric Progress Note Patient seen today, length of contact: 25 min Patient Chief Complaint: "better" Problems Identified/Issues Discussed: Patient is known to me from prior hospitalizations and interviews during this admission. I reviewed recent notes on the unit. Patient is improving slowly and has verbalized subjective feelings of improvement however affect remains constricted and withdrawn. Grooming also remains poor. Patient is internally preoccupied and flatly tells me that she has more hope. Continues to deny perceptual disturbance and she is oriented to month, year and location. Easily remembers me from our prior interviews. Staff notes that she is visible on the unit but still not interactive with peers. She is compliant with medications and denies any new discomfort or pain. There were no behavioral issues overnight and patient reports she slept well. Diagnostic Results: SCHIZOAFFECTIVE DISORDER Medication Change: Yes (prolixin increased, gedodon d/c, klonopin decreased) Medical Record Reviewed: Yes Mental Status Examination - Cognitive Function Orientation: Person, Place Attention: Poor Concentration: Poor Association: Loose Fund of Knowledge: WNL - Mood Mood: Depressed ( "better"), Anxious - Affect Affect: Constricted, Flat, Other ( internally preoccupied) - Formal Thought Process Formal Thought Process: Hallucinations (denied), Delusions (denied), Paranoia, Other (+speech latency) - Suicidal Ideation Suicidal Ideation: No - Homicidal Ideation Homicidal Ideation: No Goal/Treatment Plan - Goal/Treatment Plan Need for Continued Stay: Remain at risks for inpatient hospitalization, Severe depression anxiety, Discharge may exacerbated symptoms, Severe functional impairment Progress Toward Problem(s) and Goals/Treatment Plan: * c/w current tx and plan * Vitals reviewed and noted below: Selected Entries 07/09/17 07:12 Temperature 98.4 F Pulse Rate 75 Respiratory 20 Rate Blood Pressure 128/64 * No new weekend labs thus far Estimated Date of D/C: 07/15/17
--- NOTE | 2017-07-10 01:06 | PN ---
DATE: SUBJECTIVE: I saw her in the Psych floor. She is telling me that she is moving her bowels too much now in that she wants me to stop the MiraLax because it did its job and and we will revisit it if we have to and she liked that plan. She is eating well. PHYSICAL EXAMINATION: GENERAL: In no acute distress. VITAL SIGNS: 98.4 temperature, 75 pulse, 120/64 blood pressure, 20 respiratory rate. HEENT: Head: Atraumatic, normocephalic. Throat is moist. NECK: Supple. HEART: Regular rate. LUNGS: Decreased breath sounds, but clear. ABDOMEN: Soft. Positive bowel sounds, nontender. EXTREMITIES: No edema. LABORATORY DATA: Last blood sugar was 163, the one before that was 112. ASSESSMENT AND PLAN: She is doing well, although the last five blood sugars are all 200. She is being seen by Psychiatry. Continue with aggressive treatment and care. She has urinary tract infection, constipation, suicidal ideation, schizoaffective disorder, diabetes, and she is obese. I will continue to encourage her to participate and take her medications. Darek Ramirez DO MTDD
[2017-07-10] MEDS: Naproxen 550 mg Tab PO SCH ×2 (08:37→17:11)
[2017-07-10] MEDS: Divalproex 500 mg DR(BID formulation) PO SCH ×2 (08:37→21:07)
[2017-07-10] MEDS: Venlafaxine 75 mg ER Cap PO SCH (08:37)
[2017-07-10] MEDS: Nystatin 100,000 Units/gm Topical Pow(15 gm) TOP SCH ×2 (08:38→17:11)
[2017-07-10] MEDS: Cholestyramine 4 gm/Pkt UD PO SCH (08:38)
[2017-07-10] MEDS: Insulin Reg-LOW-Coverage SC SCH ×4 (08:39→22:00)
--- NOTE | 2017-07-10 08:51 | PCM.PYCHPN ---
Psychiatric Progress Note - Psychiatric Progress Note Patient seen today, length of contact: 25 min Patient Chief Complaint: Patient flatly tells me that she feels "all right and hopeful". Problems Identified/Issues Discussed: Patient is known to me from prior hospitalizations and interviews during this admission. I reviewed recent notes on the unit. Patient is improving slowly and has verbalized subjective feelings of improved mood however affect remains constricted and behavior is passive and withdrawn. Grooming is poor. Patient is internally preoccupied and flatly tells me that she feels "all right and hopeful ". Continues to deny perceptual disturbance "not for awhile" and she is oriented to month, year and location. Patient indicates her anxiety was high yesterday because her sister visited and patient "wanted to go home and stuff like that". She denies any side effects, new discomfort or pain. Slept well again last night. Staff notes that she is visible on the unit and attending groups but still not interactive with peers. She is compliant with medications. There were no behavioral issues over the weekend. Diagnostic Results: SCHIZOAFFECTIVE DISORDER Medication Change: Yes (prolixin increased, gedodon d/c, klonopin decreased) Medical Record Reviewed: Yes Mental Status Examination - Cognitive Function Orientation: Person, Place Attention: Poor Concentration: Poor Association: Loose Fund of Knowledge: WNL - Mood Mood: Depressed (Patient flatly tells me that she feels "all right and hopeful" . ), Anxious - Affect Affect: Constricted, Flat, Other ( internally preoccupied) - Formal Thought Process Formal Thought Process: Hallucinations (denied), Delusions (denied), Paranoia, Other (+speech latency) - Suicidal Ideation Suicidal Ideation: No - Homicidal Ideation Homicidal Ideation: No Goal/Treatment Plan - Goal/Treatment Plan Need for Continued Stay: Remain at risks for inpatient hospitalization, Severe depression anxiety, Discharge may exacerbated symptoms, Severe functional impairment Progress Toward Problem(s) and Goals/Treatment Plan: * c/w current tx and plan * Appreciate f/u by Dr. Ramirez on 07/09/17 * Vitals reviewed and noted below: Selected Entries 07/10/17 06:51 Temperature 98.2 F Pulse Rate 75 Respiratory 17 Rate Blood Pressure 119/61 * No new weekend labs Estimated Date of D/C: 07/15/17
--- NOTE | 2017-07-11 08:03 | PN ---
DATE: 07/10/2017 SUBJECTIVE: I saw her in the psychiatric floor. She ate her breakfast well. She has no new complaints. She slept well. She is comfortable. She is taking her Anaprox, Depakote, Effexor, insulin, Januvia, Klonopin, Maalox, milk of magnesia, nystatin, Prolixin, Questran, Sonata and Tylenol. She is moving her bowels. PHYSICAL EXAMINATION: VITAL SIGNS: She has a 98.2 temperature, 75 pulse, 119/61 blood pressure, 17 respiratory rate. HEART: Regular rate. LUNGS: Clear to auscultation. ABDOMEN: Soft, obese. LABORATORY DATA: She has a 4.9 white count, 10.8 hemoglobin, 163 platelets, Last blood sugars were 139, then 125, then 163, then 112. ASSESSMENT AND PLAN: She is doing much better. She had multiple with reasons to be here, suicidal ideation, schizoaffective disorder, osteoarthritis, diabetes, constipation, urinary tract infection. INR. She has no complaints to me today medically. As per Psychiatry, I encouraged her to participate in groups, take the medication. I think she is slowly improving. Darek Ramirez DO MTDD
[2017-07-11] MEDS: Nystatin 100,000 Units/gm Topical Pow(15 gm) TOP SCH ×2 (08:33→16:41)
[2017-07-11] MEDS: Naproxen 550 mg Tab PO SCH ×2 (08:33→16:41)
[2017-07-11] MEDS: Cholestyramine 4 gm/Pkt UD PO SCH (08:33)
[2017-07-11] MEDS: Divalproex 500 mg DR(BID formulation) PO SCH ×2 (08:33→21:01)
[2017-07-11] MEDS: Venlafaxine 75 mg ER Cap PO SCH (08:33)
[2017-07-11] MEDS: Insulin Reg-LOW-Coverage SC SCH ×4 (08:34→23:00)
--- NOTE | 2017-07-11 09:19 | PN ---
DATE: SUBJECTIVE: I saw her resting comfortably in bed. She slept well. No acute distress this morning. No chest pain or shortness of breath. No abdominal pain. She does have an appetite. She is trying to participate. She tells me she is eating a little bit better. She is on Anaprox, Depakote, Effexor, insulin, Januvia, Klonopin, Maalox, milk of magnesia, nystatin, Prolixin, Questran, Sonata and Tylenol. She said her bowels are moving okay. OBJECTIVE VITAL SIGNS: She has a 98.2 temperature, 75 pulse, 107/50 blood pressure, 16 respiratory rate. HEENT: Head is atraumatic, normocephalic. Throat is moist. NECK: Supple. HEART: Regular rate. LUNGS: Decreased breath sounds, but clear. ABDOMEN: Morbidly obese, soft, nontender. Positive bowel sounds. No guarding, no rebound, no CVA tenderness. EXTREMITIES: Have no edema. DATA: Last blood sugar was 125 that was 127. She is doing better with the blood sugars. She is here for multiple issues. She has UTI, constipation, suicidal ideation, schizoaffective disorder, diabetes, obesity and osteoarthritis. Will continue to encourage her to participate with psychiatric plans in groups and hopefully, she will continue to get better. Darek Ramirez DO
--- NOTE | 2017-07-11 14:07 | PCM.PYCHPN ---
Psychiatric Progress Note - Psychiatric Progress Note Patient seen today, length of contact: 30min Patient Chief Complaint: "I don't want to be on any injection, I do not know how it will make me feel". Problems Identified/Issues Discussed: Suicide/ homicide prevention, past psychiatric h/o, current psychiatric symptoms , medical problems, risk/benefits and alternatives of medications, medications compliance, coping strategies, substance abuse h/o, relapse prevention, importance of follow up with psychiatrist and therapist, discharge plan. Medical Problems: obesity, dyslipidemia, hypothyroidism Diagnostic Results: 07/04/17 07:20 07/04/17 07:20 Lab Results 07/04/17 16:47: POC Glucose (mg/dL) 136 H 07/04/17 11:12: POC Glucose (mg/dL) 175 H 07/04/17 07:20: Sodium 142, Potassium 4.5, Chloride 105, Carbon Dioxide 31, Anion Gap 11, BUN 13, Creatinine 0.8, Est GFR ( Amer) > 60, Est GFR (Non- Af Amer) > 60, Random Glucose 142 H, Calcium 9.2, Total Bilirubin 0.2, AST 16, ALT 20, Alkaline Phosphatase 68, Total Protein 5.8, Albumin 3.1, Globulin 2.8, Albumin/Globulin Ratio 1.1 07/04/17 07:20: WBC 4.9, RBC 3.68, Hgb 10.8 L, Hct 33.0 L, MCV 89.7, MCH 29.3, MCHC 32.7, RDW 13.3, Plt Count 163, MPV 8.8 07/04/17 07:08: POC Glucose (mg/dL) 135 H 07/03/17 21:13: POC Glucose (mg/dL) 175 H 07/03/17 15:58: POC Glucose (mg/dL) 112 H 07/03/17 11:21: POC Glucose (mg/dL) 249 H 07/03/17 07:20: POC Glucose (mg/dL) 124 H 07/02/17 21:27: POC Glucose (mg/dL) 142 H 07/02/17 17:15: POC Glucose (mg/dL) 202 H 07/02/17 11:19: POC Glucose (mg/dL) 198 H 07/02/17 07:59: POC Glucose (mg/dL) 143 H 07/02/17 07:00: Valproic Acid 62 07/02/17 07:00: Sodium 142, Potassium 4.3, Chloride 107, Carbon Dioxide 28, Anion Gap 12, BUN 7, Creatinine 0.7, Est GFR ( Amer) > 60, Est GFR (Non- Af Amer) > 60, Random Glucose 166 H, Calcium 9.0, Total Bilirubin 0.2, AST 17, ALT 22, Alkaline Phosphatase 69, Total Protein 5.8, Albumin 3.1, Globulin 2.7, Albumin/Globulin Ratio 1.1 07/02/17 07:00: WBC 5.8, RBC 3.83, Hgb 11.1 L, Hct 34.0 L, MCV 88.8, MCH 29.0, MCHC 32.6, RDW 13.0, Plt Count 165, MPV 8.6 07/01/17 20:55: POC Glucose (mg/dL) 170 H 07/01/17 17:02: POC Glucose (mg/dL) 159 H 07/01/17 11:40: POC Glucose (mg/dL) 218 H 07/01/17 08:17: POC Glucose (mg/dL) 158 H 07/01/17 07:27: POC Glucose (mg/dL) 186 H 07/01/17 07:20: RPR Nonreactive 07/01/17 07:20: Free T4 1.18, TSH 3rd Generation 1.97 07/01/17 07:20: Fasting Glucose 178 H, Triglycerides 171 H, Cholesterol 135, LDL Cholesterol Direct 72, HDL Cholesterol 40 06/30/17 20:54: POC Glucose (mg/dL) 314 H 06/30/17 17:57: POC Glucose (mg/dL) 259 H 06/30/17 14:01: Urine Opiates Screen Negative, Urine Methadone Screen Negative, Ur Barbiturates Screen Negative, Ur Phencyclidine Scrn Negative, Ur Amphetamines Screen Negative, U Benzodiazepines Scrn Positive, U Oth Cocaine Metabols Negative, U Cannabinoids Screen Negative 06/30/17 14:01: Urine Color Light yellow, Urine Appearance Slight-cloudy, Urine pH 6.5, Ur Specific [place] 1.010, Urine Protein Negative, Urine Glucose (UA) >= 1000, Urine Ketones Negative, Urine Blood Trace-intact H, Urine Nitrate Negative , Urine Bilirubin Negative, Urine Urobilinogen 0.2, Ur Leukocyte Esterase Moderate H, Urine RBC 5 - 10, Urine WBC 2 - 5, Ur Epithelial Cells 4 - 5, Urine Other Uyeast 06/30/17 13:23: Alcohol, Quantitative < 10 06/30/17 13:23: Salicylates < 1 L, Acetaminophen < 10.0 L 06/30/17 13:23: Sodium 139, Potassium 4.5, Chloride 103, Carbon Dioxide 27, Anion Gap 13, BUN 7, Creatinine 0.7, Est GFR ( Amer) > 60, Est GFR (Non- Af Amer) > 60, Random Glucose 285 H, Calcium 9.2, Total Bilirubin 0.3, AST 18, ALT 24, Alkaline Phosphatase 64, Total Protein 6.3, Albumin 3.5, Globulin 2.8, Albumin/Globulin Ratio 1.3 06/30/17 13:23: WBC 6.0, RBC 4.05, Hgb 12.0 D, Hct 36.1, MCV 89.1, MCH 29.6, MCHC 33.2, RDW 12.9, Plt Count 188, MPV 9.4, Gran % 72.0 H, Lymph % (Auto) 19.0 L, [place] % (Auto) 8.3 H, Eos % (Auto) 0.5 L, Baso % (Auto) 0.2, Gran # 4.33, Lymph # (Auto) 1.1 L, [place] # (Auto) 0.5, Eos # (Auto) 0.0, Baso # (Auto) 0.01 Vital Signs Temp Pulse Resp BP Pulse Ox 07/04/17 07:15 98.2 F 85 20 114/73 07/03/17 21:40 95 H 125/84 07/03/17 07:38 99.7 F H 95 H 20 141/79 07/02/17 15:00 88 148/90 07/02/17 08:10 98.4 F 95 H 18 145/89 07/01/17 15:00 85 141/79 07/01/17 07:34 98.1 F 89 20 110/60 06/30/17 17:19 98.2 F 101 H 18 137/73 06/30/17 16:40 100 H 18 152/79 H 97 06/30/17 13:04 98.1 F 102 H 16 148/89 98 Temp Pulse Resp BP Pulse Ox 97.9 F 76 20 131/63 97 07/08/17 07:11 07/08/17 07:11 07/08/17 07:11 07/08/17 07:11 06/30/17 16:40 Laboratory Results - last 24 hr 07/07/17 07/07/17 07/08/17 16:11 20:53 07:34 POC Glucose (mg/dL) 168 H 162 H 128 H 07/08/17 11:43 POC Glucose (mg/dL) 171 H Laboratory Results - last 24 hr 07/10/17 07/10/17 07/11/17 16:15 21:00 07:24 POC Glucose (mg/dL) 164 H 127 H 125 H 07/11/17 10:57 POC Glucose (mg/dL) 200 H Temp Pulse Resp BP Pulse Ox 98.2 F 75 16 107/50 L 97 07/11/17 06:55 07/11/17 06:55 07/11/17 06:55 07/11/17 06:55 06/30/17 16:40 DSM 5 Symptoms Update: shortly patient is 56 year old Female, reported h/o schizoaffective disorder, multiple psychiatric admissions, including this facility under 's services, as well this chief writer early this month, pt signed herself from the hospital despite the advise from this chief writer to stay. pt currently attends [facility] IOP program, pt denied h/o suicidal attempts, but h/o disorganized and psychotic behavior, pt verbalized thoughts of "I don't want to live anymore " to her sister who brought her to the hospital, as per report pt was overmedicating herself. pt needs further evaluation and stabilization. pt was seen at the TV area, pt's hygiene improved, but pt still appeared to be careless about her appearance. as per staff pt was crying over the weekend because pt had paranoid ideation that she will be screened and committed to the [facility], but it is not a plan and pt knows about it. Pt was assured today that if she will continue to improve, no need for [facility] screening. pt said "I feel better", denied v/a/t hallucinations, denied paranoid ideation. 07/06/17 [place], pt was able to draw a clock, was able to memorize two objects. hygiene is improving pt compliant with meds, no side effects observed or reported, AIMS 0, no EPS. DSM 5 Diagnosis: Schizoaffective disorder Medication Change: Yes (klonopin decreased) Medical Record Reviewed: Yes Consults ordered or reviewed: medical consult appreciated Mental Status Examination - Cognitive Function Orientation: Person, Place Attention: Poor (some improvemetn) Concentration: Poor (some improvement) Association: Loose (some improvement) Fund of Knowledge: WNL - Mood Mood: Depressed ("I feel better"), Anxious (denied) - Affect Affect: Constricted, Flat, Other ( internally preoccupied) - Formal Thought Process Formal Thought Process: Hallucinations (denied), Delusions (denied), Paranoia ( pt was afraid that she will be transferred to [facility]) - Suicidal Ideation Suicidal Ideation: No - Homicidal Ideation Homicidal Ideation: No Goal/Treatment Plan - Goal/Treatment Plan Need for Continued Stay: Remain at risks for inpatient hospitalization, Severe depression anxiety, Discharge may exacerbated symptoms, Severe functional impairment Progress Toward Problem(s) and Goals/Treatment Plan: milieu/structure/supportive therapy klonopin 1mg po bid scheduled, for catatonia and anxiety, (pt was on xanax 1mg qid) Divalproex [Depakote DR(*BID*)] 500 mg PO DAILY resumed Divalproex [Depakote DR(*BID*)] 1,000 mg PO HS resumed will check on depakote level 62 07/02/17 Venlafaxine [Effexor XR] 150 mg PO DAILY will be continued Zaleplon [Sonata] 10 mg PO HS will be continued prolixin 10mg po tid for psychosis with the plan to titrate it up medical consult appreciated will call for collaterals from family, SW obtain written consent Will monitor closely Pt was educated about risk/benefits and alternatives of medications, coping strategies (safety plan, suicide prevention), relapse prevention, importance of follow up with psychiatrist and therapist, stay away from drugs/alcohol/smoking Estimated Date of D/C: 07/15/17
[2017-07-11 17:55] VITALS: O2SAT 96
[2017-07-12] MEDS: Cholestyramine 4 gm/Pkt UD PO SCH (08:55)
[2017-07-12] MEDS: Divalproex 500 mg DR(BID formulation) PO SCH ×2 (08:58→21:04)
[2017-07-12] MEDS: Venlafaxine 75 mg ER Cap PO SCH (08:58)
[2017-07-12] MEDS: Naproxen 550 mg Tab PO SCH ×2 (08:58→15:53)
[2017-07-12] MEDS: Nystatin 100,000 Units/gm Topical Pow(15 gm) TOP SCH ×2 (08:59→15:54)
[2017-07-12 11:10] VITALS: RESP 20
--- NOTE | 2017-07-12 12:20 | PN ---
DATE: SUBJECTIVE: I saw her in the Psychiatric unit. She is feeling well this morning. No complaints. She is on Anaprox, Depakote, Effexor, insulin, Januvia, Klonopin, Maalox, milk of magnesia, nystatin, Prolixin, Questran, Sonata, Tylenol and she is moving her bowels. PHYSICAL EXAMINATION: VITAL SIGNS: She has a 98.2 temp, 75 pulse, 143/87 blood pressure, 16 respiratory rate, 96% O2 sat on room air. HEENT: Head is atraumatic, normocephalic. HEART: Regular rate. LUNGS: Decreased breath sounds, but clear. ABDOMEN: Soft. Positive bowel sounds. Morbidly obese, nontender. EXTREMITIES: No edema. ASSESSMENT AND PLAN: She has a blood sugar of 177. Isolated and she is telling me she is participating in groups. She is on Januvia 100 mg a day and insulin coverage. We will continue to watch her blood sugars and hopefully she will continue to improve psychologically. Darek Ramirez DO
[2017-07-12] MEDS: Insulin Reg-LOW-Coverage SC SCH ×4 (12:22→22:10)
--- NOTE | 2017-07-12 15:26 | PCM.PYCHPN ---
Psychiatric Progress Note - Psychiatric Progress Note Patient seen today, length of contact: 30min Patient Chief Complaint: "I am okay" Problems Identified/Issues Discussed: Suicide/ homicide prevention, past psychiatric h/o, current psychiatric symptoms , medical problems, risk/benefits and alternatives of medications, medications compliance, coping strategies, substance abuse h/o, relapse prevention, importance of follow up with psychiatrist and therapist, discharge plan. Medical Problems: obesity, dyslipidemia, hypothyroidism Diagnostic Results: 07/04/17 07:20 07/04/17 07:20 Lab Results 07/04/17 16:47: POC Glucose (mg/dL) 136 H 07/04/17 11:12: POC Glucose (mg/dL) 175 H 07/04/17 07:20: Sodium 142, Potassium 4.5, Chloride 105, Carbon Dioxide 31, Anion Gap 11, BUN 13, Creatinine 0.8, Est GFR ( Amer) > 60, Est GFR (Non- Af Amer) > 60, Random Glucose 142 H, Calcium 9.2, Total Bilirubin 0.2, AST 16, ALT 20, Alkaline Phosphatase 68, Total Protein 5.8, Albumin 3.1, Globulin 2.8, Albumin/Globulin Ratio 1.1 07/04/17 07:20: WBC 4.9, RBC 3.68, Hgb 10.8 L, Hct 33.0 L, MCV 89.7, MCH 29.3, MCHC 32.7, RDW 13.3, Plt Count 163, MPV 8.8 07/04/17 07:08: POC Glucose (mg/dL) 135 H 07/03/17 21:13: POC Glucose (mg/dL) 175 H 07/03/17 15:58: POC Glucose (mg/dL) 112 H 07/03/17 11:21: POC Glucose (mg/dL) 249 H 07/03/17 07:20: POC Glucose (mg/dL) 124 H 07/02/17 21:27: POC Glucose (mg/dL) 142 H 07/02/17 17:15: POC Glucose (mg/dL) 202 H 07/02/17 11:19: POC Glucose (mg/dL) 198 H 07/02/17 07:59: POC Glucose (mg/dL) 143 H 07/02/17 07:00: Valproic Acid 62 07/02/17 07:00: Sodium 142, Potassium 4.3, Chloride 107, Carbon Dioxide 28, Anion Gap 12, BUN 7, Creatinine 0.7, Est GFR ( Amer) > 60, Est GFR (Non- Af Amer) > 60, Random Glucose 166 H, Calcium 9.0, Total Bilirubin 0.2, AST 17, ALT 22, Alkaline Phosphatase 69, Total Protein 5.8, Albumin 3.1, Globulin 2.7, Albumin/Globulin Ratio 1.1 07/02/17 07:00: WBC 5.8, RBC 3.83, Hgb 11.1 L, Hct 34.0 L, MCV 88.8, MCH 29.0, MCHC 32.6, RDW 13.0, Plt Count 165, MPV 8.6 07/01/17 20:55: POC Glucose (mg/dL) 170 H 07/01/17 17:02: POC Glucose (mg/dL) 159 H 07/01/17 11:40: POC Glucose (mg/dL) 218 H 07/01/17 08:17: POC Glucose (mg/dL) 158 H 07/01/17 07:27: POC Glucose (mg/dL) 186 H 07/01/17 07:20: RPR Nonreactive 07/01/17 07:20: Free T4 1.18, TSH 3rd Generation 1.97 07/01/17 07:20: Fasting Glucose 178 H, Triglycerides 171 H, Cholesterol 135, LDL Cholesterol Direct 72, HDL Cholesterol 40 06/30/17 20:54: POC Glucose (mg/dL) 314 H 06/30/17 17:57: POC Glucose (mg/dL) 259 H 06/30/17 14:01: Urine Opiates Screen Negative, Urine Methadone Screen Negative, Ur Barbiturates Screen Negative, Ur Phencyclidine Scrn Negative, Ur Amphetamines Screen Negative, U Benzodiazepines Scrn Positive, U Oth Cocaine Metabols Negative, U Cannabinoids Screen Negative 06/30/17 14:01: Urine Color Light yellow, Urine Appearance Slight-cloudy, Urine pH 6.5, Ur Specific [place] 1.010, Urine Protein Negative, Urine Glucose (UA) >= 1000, Urine Ketones Negative, Urine Blood Trace-intact H, Urine Nitrate Negative , Urine Bilirubin Negative, Urine Urobilinogen 0.2, Ur Leukocyte Esterase Moderate H, Urine RBC 5 - 10, Urine WBC 2 - 5, Ur Epithelial Cells 4 - 5, Urine Other Uyeast 06/30/17 13:23: Alcohol, Quantitative < 10 06/30/17 13:23: Salicylates < 1 L, Acetaminophen < 10.0 L 06/30/17 13:23: Sodium 139, Potassium 4.5, Chloride 103, Carbon Dioxide 27, Anion Gap 13, BUN 7, Creatinine 0.7, Est GFR ( Amer) > 60, Est GFR (Non- Af Amer) > 60, Random Glucose 285 H, Calcium 9.2, Total Bilirubin 0.3, AST 18, ALT 24, Alkaline Phosphatase 64, Total Protein 6.3, Albumin 3.5, Globulin 2.8, Albumin/Globulin Ratio 1.3 06/30/17 13:23: WBC 6.0, RBC 4.05, Hgb 12.0 D, Hct 36.1, MCV 89.1, MCH 29.6, MCHC 33.2, RDW 12.9, Plt Count 188, MPV 9.4, Gran % 72.0 H, Lymph % (Auto) 19.0 L, [place] % (Auto) 8.3 H, Eos % (Auto) 0.5 L, Baso % (Auto) 0.2, Gran # 4.33, Lymph # (Auto) 1.1 L, [place] # (Auto) 0.5, Eos # (Auto) 0.0, Baso # (Auto) 0.01 Vital Signs Temp Pulse Resp BP Pulse Ox 07/04/17 07:15 98.2 F 85 20 114/73 07/03/17 21:40 95 H 125/84 07/03/17 07:38 99.7 F H 95 H 20 141/79 07/02/17 15:00 88 148/90 07/02/17 08:10 98.4 F 95 H 18 145/89 07/01/17 15:00 85 141/79 07/01/17 07:34 98.1 F 89 20 110/60 06/30/17 17:19 98.2 F 101 H 18 137/73 06/30/17 16:40 100 H 18 152/79 H 97 06/30/17 13:04 98.1 F 102 H 16 148/89 98 Temp Pulse Resp BP Pulse Ox 97.9 F 76 20 131/63 97 03/02/18 07:11 07/08/17 07:11 07/08/17 07:11 07/08/17 07:11 06/30/17 16:40 Laboratory Results - last 24 hr 07/07/17 07/07/17 07/08/17 16:11 20:53 07:34 POC Glucose (mg/dL) 168 H 162 H 128 H 07/08/17 11:43 POC Glucose (mg/dL) 171 H Laboratory Results - last 24 hr 07/10/17 07/10/17 07/11/17 16:15 21:00 07:24 POC Glucose (mg/dL) 164 H 127 H 125 H 07/11/17 10:57 POC Glucose (mg/dL) 200 H Temp Pulse Resp BP Pulse Ox 98.2 F 75 16 107/50 L 97 07/11/17 06:55 07/11/17 06:55 07/11/17 06:55 07/11/17 06:55 06/30/17 16:40 DSM 5 Symptoms Update: shortly patient is 56 year old Female, reported h/o schizoaffective disorder, multiple psychiatric admissions, including this facility under 's services, as well this check writer salesperson early this month, pt signed herself from the hospital despite the advise from this check writer salesperson to stay. pt currently attends [facility] IOP program, pt denied h/o suicidal attempts, but h/o disorganized and psychotic behavior, pt verbalized thoughts of "I don't want to live anymore " to her sister who brought her to the hospital, as per report pt was overmedicating herself. pt needs further evaluation and stabilization. pt was seen at the treatment team meeting room, pt presented to be less psychotic, more spontaneous, pt willing to increase effexor for depression and anxiety. pt c/o insomnia, but as per report pt's roommate was snoring loudly. as per pt' sister, pt deems not ready for discharge because over the weekend as per family pt was "hallucinating". as per staff pt is more pleasant, less psychotic, hygiene is improving. pt compliant with meds, no side effects observed or reported, AIMS 0, no EPS. DSM 5 Diagnosis: Schizoaffective disorder Medication Change: Yes (effexor increased) Medical Record Reviewed: Yes Consults ordered or reviewed: medical consult appreciated Mental Status Examination - Cognitive Function Orientation: Person, Place Attention: Poor (some improvemetn) Concentration: Poor (some improvement) Association: Loose (some improvement) Fund of Knowledge: WNL - Mood Mood: Depressed ("I feel better"), Anxious (denied) - Affect Affect: Constricted, Flat, Other ( internally preoccupied) - Formal Thought Process Formal Thought Process: Hallucinations (denied), Delusions (denied), Paranoia ( pt was afraid that she will be transferred to [facility]) - Suicidal Ideation Suicidal Ideation: No - Homicidal Ideation Homicidal Ideation: No Goal/Treatment Plan - Goal/Treatment Plan Need for Continued Stay: Remain at risks for inpatient hospitalization, Severe depression anxiety, Discharge may exacerbated symptoms, Severe functional impairment Progress Toward Problem(s) and Goals/Treatment Plan: milieu/structure/supportive therapy klonopin 1mg po bid scheduled, for catatonia and anxiety, (pt was on xanax 1mg qid) Divalproex [Depakote DR(*BID*)] 500 mg PO DAILY resumed Divalproex [Depakote DR(*BID*)] 1,000 mg PO HS resumed depakote level 62 07/02/17 depakote level 65 07/12/17 Venlafaxine [Effexor XR] 225 mg PO DAILY for depression and anxiety Zaleplon [Sonata] 10 mg PO HS will be continued prolixin 10mg po tid for psychosis with the plan to titrate it up medical consult appreciated will call for collaterals from family, SW obtain written consent Will monitor closely Pt was educated about risk/benefits and alternatives of medications, coping strategies (safety plan, suicide prevention), relapse prevention, importance of follow up with psychiatrist and therapist, stay away from drugs/alcohol/smoking Estimated Date of D/C: 07/14/17
[2017-07-13] MEDS: Cholestyramine 4 gm/Pkt UD PO SCH (09:08)
[2017-07-13] MEDS: Venlafaxine 75 mg ER Cap PO SCH (09:08)
[2017-07-13] MEDS: Naproxen 550 mg Tab PO SCH ×2 (09:09→16:00)
[2017-07-13] MEDS: Divalproex 500 mg DR(BID formulation) PO SCH ×2 (09:09→21:04)
[2017-07-13] MEDS: Insulin Reg-LOW-Coverage SC SCH ×4 (09:10→21:01)
[2017-07-13] MEDS: Nystatin 100,000 Units/gm Topical Pow(15 gm) TOP SCH ×2 (09:12→18:48)
--- NOTE | 2017-07-13 10:05 | PN ---
DATE: SUBJECTIVE: I saw her resting comfortably in bed. She slept well. She is comfortable. No acute distress. Good appetite. She tells me she is feeling better. MEDICATIONS: She is on Anaprox, Depakote, Effexor, insulin, Januvia, Klonopin, Maalox, milk of magnesia, nystatin, Prolixin, Questran, Sonata and Tylenol. PHYSICAL EXAMINATION: VITAL SIGNS: Temperature is 98.2, 83 pulse, 128/78 blood pressure, 20 respiratory rate, 96% O2 sat on room air. HEENT: Head is atraumatic, normocephalic. HEART: Regular rate. LUNGS: Clear to auscultation. ABDOMEN: Soft, obese, nontender. EXTREMITIES: No edema. LABORATORY DATA: Last blood sugar was 191. They have been as high as 200+. ASSESSMENT AND PLAN: I am going to add metformin to help with the blood sugars and we will continue with aggressive treatment and care as per Psychiatry. She has urinary tract infection, constipation, diabetes, schizoaffective disorder, suicidal ideation and obesity. Darek Ramirez DO
--- NOTE | 2017-07-13 10:18 | PCM.PYCHPN ---
Psychiatric Progress Note - Psychiatric Progress Note Patient seen today, length of contact: 30min Patient Chief Complaint: "I feel better, I have questions about my medications" Problems Identified/Issues Discussed: Suicide/ homicide prevention, past psychiatric h/o, current psychiatric symptoms , medical problems, risk/benefits and alternatives of medications, medications compliance, coping strategies, substance abuse h/o, relapse prevention, importance of follow up with psychiatrist and therapist, discharge plan. Medical Problems: obesity, dyslipidemia, hypothyroidism Diagnostic Results: 07/04/17 07:20 07/04/17 07:20 Lab Results 07/04/17 16:47: POC Glucose (mg/dL) 136 H 07/04/17 11:12: POC Glucose (mg/dL) 175 H 07/04/17 07:20: Sodium 142, Potassium 4.5, Chloride 105, Carbon Dioxide 31, Anion Gap 11, BUN 13, Creatinine 0.8, Est GFR ( Amer) > 60, Est GFR (Non- Af Amer) > 60, Random Glucose 142 H, Calcium 9.2, Total Bilirubin 0.2, AST 16, ALT 20, Alkaline Phosphatase 68, Total Protein 5.8, Albumin 3.1, Globulin 2.8, Albumin/Globulin Ratio 1.1 07/04/17 07:20: WBC 4.9, RBC 3.68, Hgb 10.8 L, Hct 33.0 L, MCV 89.7, MCH 29.3, MCHC 32.7, RDW 13.3, Plt Count 163, MPV 8.8 07/04/17 07:08: POC Glucose (mg/dL) 135 H 07/03/17 21:13: POC Glucose (mg/dL) 175 H 07/03/17 15:58: POC Glucose (mg/dL) 112 H 07/03/17 11:21: POC Glucose (mg/dL) 249 H 07/03/17 07:20: POC Glucose (mg/dL) 124 H 07/02/17 21:27: POC Glucose (mg/dL) 142 H 07/02/17 17:15: POC Glucose (mg/dL) 202 H 07/02/17 11:19: POC Glucose (mg/dL) 198 H 07/02/17 07:59: POC Glucose (mg/dL) 143 H 07/02/17 07:00: Valproic Acid 62 07/02/17 07:00: Sodium 142, Potassium 4.3, Chloride 107, Carbon Dioxide 28, Anion Gap 12, BUN 7, Creatinine 0.7, Est GFR ( Amer) > 60, Est GFR (Non- Af Amer) > 60, Random Glucose 166 H, Calcium 9.0, Total Bilirubin 0.2, AST 17, ALT 22, Alkaline Phosphatase 69, Total Protein 5.8, Albumin 3.1, Globulin 2.7, Albumin/Globulin Ratio 1.1 07/02/17 07:00: WBC 5.8, RBC 3.83, Hgb 11.1 L, Hct 34.0 L, MCV 88.8, MCH 29.0, MCHC 32.6, RDW 13.0, Plt Count 165, MPV 8.6 07/01/17 20:55: POC Glucose (mg/dL) 170 H 07/01/17 17:02: POC Glucose (mg/dL) 159 H 07/01/17 11:40: POC Glucose (mg/dL) 218 H 07/01/17 08:17: POC Glucose (mg/dL) 158 H 07/01/17 07:27: POC Glucose (mg/dL) 186 H 07/01/17 07:20: RPR Nonreactive 07/01/17 07:20: Free T4 1.18, TSH 3rd Generation 1.97 07/01/17 07:20: Fasting Glucose 178 H, Triglycerides 171 H, Cholesterol 135, LDL Cholesterol Direct 72, HDL Cholesterol 40 06/30/17 20:54: POC Glucose (mg/dL) 314 H 06/30/17 17:57: POC Glucose (mg/dL) 259 H 06/30/17 14:01: Urine Opiates Screen Negative, Urine Methadone Screen Negative, Ur Barbiturates Screen Negative, Ur Phencyclidine Scrn Negative, Ur Amphetamines Screen Negative, U Benzodiazepines Scrn Positive, U Oth Cocaine Metabols Negative, U Cannabinoids Screen Negative 06/30/17 14:01: Urine Color Light yellow, Urine Appearance Slight-cloudy, Urine pH 6.5, Ur Specific [place] 1.010, Urine Protein Negative, Urine Glucose (UA) >= 1000, Urine Ketones Negative, Urine Blood Trace-intact H, Urine Nitrate Negative , Urine Bilirubin Negative, Urine Urobilinogen 0.2, Ur Leukocyte Esterase Moderate H, Urine RBC 5 - 10, Urine WBC 2 - 5, Ur Epithelial Cells 4 - 5, Urine Other Uyeast 06/30/17 13:23: Alcohol, Quantitative < 10 06/30/17 13:23: Salicylates < 1 L, Acetaminophen < 10.0 L 06/30/17 13:23: Sodium 139, Potassium 4.5, Chloride 103, Carbon Dioxide 27, Anion Gap 13, BUN 7, Creatinine 0.7, Est GFR ( Amer) > 60, Est GFR (Non- Af Amer) > 60, Random Glucose 285 H, Calcium 9.2, Total Bilirubin 0.3, AST 18, ALT 24, Alkaline Phosphatase 64, Total Protein 6.3, Albumin 3.5, Globulin 2.8, Albumin/Globulin Ratio 1.3 06/30/17 13:23: WBC 6.0, RBC 4.05, Hgb 12.0 D, Hct 36.1, MCV 89.1, MCH 29.6, MCHC 33.2, RDW 12.9, Plt Count 188, MPV 9.4, Gran % 72.0 H, Lymph % (Auto) 19.0 L, [place] % (Auto) 8.3 H, Eos % (Auto) 0.5 L, Baso % (Auto) 0.2, Gran # 4.33, Lymph # (Auto) 1.1 L, [place] # (Auto) 0.5, Eos # (Auto) 0.0, Baso # (Auto) 0.01 Vital Signs Temp Pulse Resp BP Pulse Ox 07/04/17 07:15 98.2 F 85 20 114/73 07/03/17 21:40 95 H 125/84 07/03/17 07:38 99.7 F H 95 H 20 141/79 07/02/17 15:00 88 148/90 07/02/17 08:10 98.4 F 95 H 18 145/89 07/01/17 15:00 85 141/79 07/01/17 07:34 98.1 F 89 20 110/60 06/30/17 17:19 98.2 F 101 H 18 137/73 06/30/17 16:40 100 H 18 152/79 H 97 06/30/17 13:04 98.1 F 102 H 16 148/89 98 Temp Pulse Resp BP Pulse Ox 97.9 F 76 20 131/63 97 07/08/17 07:11 07/08/17 07:11 07/08/17 07:11 07/08/17 07:11 06/30/17 16:40 Laboratory Results - last 24 hr 07/07/17 07/07/17 07/08/17 16:11 20:53 07:34 POC Glucose (mg/dL) 168 H 162 H 128 H 07/08/17 11:43 POC Glucose (mg/dL) 171 H Laboratory Results - last 24 hr 07/10/17 07/10/17 07/11/17 16:15 21:00 07:24 POC Glucose (mg/dL) 164 H 127 H 125 H 07/11/17 10:57 POC Glucose (mg/dL) 200 H Temp Pulse Resp BP Pulse Ox 98.2 F 75 16 107/50 L 97 07/11/17 06:55 07/11/17 06:55 07/11/17 06:55 07/11/17 06:55 06/30/17 16:40 DSM 5 Symptoms Update: shortly patient is 56 year old Female, reported h/o schizoaffective disorder, multiple psychiatric admissions, including this facility under 's services, as well this commercial insurance underwriter early this month, pt signed herself from the hospital despite the advise from this commercial insurance underwriter to stay. pt currently attends [facility] IOP program, pt denied h/o suicidal attempts, but h/o disorganized and psychotic behavior, pt verbalized thoughts of "I don't want to live anymore " to her sister who brought her to the hospital, as per report pt was overmedicating herself. pt needs further evaluation and stabilization. pt was seen at the dinning area, pt presented to be less psychotic, more spontaneous, pt was asking intelligent questions about medications, staff provided pt with the med list, this commercial insurance underwriter educated about tx plan and meds risk/ benefits and alternatives discussed, pt verbalized understanding. pt was said that she feels "much better", denied v/a/t hallucinations, denied paranoid ideation, thought process is better organized. pt slept better. as per staff pt is more pleasant, less psychotic, hygiene is improving. pt compliant with meds, no side effects observed or reported, AIMS 0, no EPS. DSM 5 Diagnosis: Schizoaffective disorder Medication Change: No (effexor increased yesterday) Medical Record Reviewed: Yes Mental Status Examination - Cognitive Function Orientation: Person, Place Attention: Poor (improvement) Concentration: Poor (improvement) Association: Loose (some improvement) Fund of Knowledge: WNL - Mood Mood: Depressed ("I feel better"), Anxious (denied) - Affect Affect: Constricted, Flat, Other ( internally preoccupied) - Formal Thought Process Formal Thought Process: Hallucinations (denied), Delusions (denied), Paranoia ( improved) - Suicidal Ideation Suicidal Ideation: No - Homicidal Ideation Homicidal Ideation: No Goal/Treatment Plan - Goal/Treatment Plan Need for Continued Stay: Remain at risks for inpatient hospitalization, Severe depression anxiety, Discharge may exacerbated symptoms, Severe functional impairment Progress Toward Problem(s) and Goals/Treatment Plan: milieu/structure/supportive therapy klonopin 1mg po bid scheduled, for catatonia and anxiety, (pt was on xanax 1mg qid) Divalproex [Depakote DR(*BID*)] 500 mg PO DAILY resumed Divalproex [Depakote DR(*BID*)] 1,000 mg PO HS resumed depakote level 62 07/02/17 depakote level 65 07/12/17 Venlafaxine [Effexor XR] 225 mg PO DAILY for depression and anxiety Zaleplon [Sonata] 10 mg PO HS will be continued prolixin 10mg po tid for psychosis with the plan to titrate it up medical consult appreciated will call for collaterals from family, SW obtain written consent Will monitor closely Pt was educated about risk/benefits and alternatives of medications, coping strategies (safety plan, suicide prevention), relapse prevention, importance of follow up with psychiatrist and therapist, stay away from drugs/alcohol/smoking Estimated Date of D/C: 07/14/17
[2017-07-14 06:57] VITALS: BP 118/57; PULSE 73; TEMP 97.9
[2017-07-14] MEDS: Insulin Reg-LOW-Coverage SC SCH (08:37)
[2017-07-14] MEDS: Venlafaxine 75 mg ER Cap PO SCH (08:50)
[2017-07-14] MEDS: Cholestyramine 4 gm/Pkt UD PO SCH (08:50)
[2017-07-14] MEDS: Divalproex 500 mg DR(BID formulation) PO SCH (08:51)
[2017-07-14] MEDS: Nystatin 100,000 Units/gm Topical Pow(15 gm) TOP SCH (08:52)
[2017-07-14] MEDS: Naproxen 550 mg Tab PO SCH (08:52)
--- NOTE | 2017-07-15 09:18 | PN ---
DATE: 07/14/2017 SUBJECTIVE: She is walking around the [place]. She is going home today. She tells me she is on Anaprox, Depakote, Effexor, Glucophage, insulin, Januvia, Klonopin, Maalox, Milk of magnesia, nystatin, Prolixin, Questran, Sonata and Tylenol. She is in much better spirits. Feeling a lot of happy about going home. PHYSICAL EXAMINATION: VITAL SIGNS: She has a 97.9 temp, 73 pulse, 118/57 blood pressure, 20 respiratory rate. HEENT: The head is atraumatic, normocephalic. HEART: Regular rate. LUNGS: Clear to auscultation. ABDOMEN: Soft, morbidly obese, nontender. EXTREMITIES: No edema. LABORATORY DATA: She has a 4.9 white count, 10.8 hemoglobin, 33 hematocrit with 163 platelets. Last blood sugar was 140 127, much better with the increase in the medications she is on. ASSESSMENT AND PLAN: She will continue with metformin and Januvia. I will see her in the outpatient in my office and I am happy she will be leaving us today from the [facility]. She is here for urinary tract infection, constipation, suicidal ideations, schizoaffective disorder, diabetes and osteoarthritis. Darek Ramirez DO MTDD
== END 2017-07-14 14:28 | disposition home or self-care (01) | DRG 430 ==
LOC: ED 12:53 → ERH 15:42 → PSYC 17:01
PROVIDERS: ADMIT Psychiatry & Neurology Psychiatry; ATTEND Psychiatry & Neurology Psychiatry
PROC: GZ3ZZZZ Medication Management (ICD-10-PCS; principal; 2017-06-30)
DX: F25.1 Schizoaffective disorder, depressive type (principal); R45.851 Suicidal ideations; Z68.41 Body mass index [BMI] 40.0-44.9, adult; N39.0 Urinary tract infection, site not specified; E11.9 Type 2 diabetes mellitus without complications; I10 Essential (primary) hypertension; I25.10 Atherosclerotic heart disease of native coronary artery without angina pectoris; K59.00 Constipation, unspecified; E78.5 Hyperlipidemia, unspecified; E66.9 Obesity, unspecified; E03.9 Hypothyroidism, unspecified; F41.9 Anxiety disorder, unspecified; K21.9 Gastro-esophageal reflux disease without esophagitis; F17.210 Nicotine dependence, cigarettes, uncomplicated; M19.90 Unspecified osteoarthritis, unspecified site; Z91.81 History of falling

== ENCOUNTER 2017-08-21 07:45 | Emergency (ER) | payer MEDICAID ==
[2017-08-21 07:45] VITALS: BMI 42.3
[2017-08-21 08:13] VITALS: TEMP 97.7
[2017-08-21] MEDS ORDERED: Morphine 2 mg/ml ISec IVP STA (08:30)
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
[2017-08-21 09:01] LABS: VENOUS BLOOD GAS BASE EXCESS 3.8 mmol/L (0.0-2.0); VENOUS BLOOD GAS PO2 28 mm/Hg (30-55); VENOUS BLOOD PH 7.35 (7.32-7.43)
[2017-08-21 09:02] LABS: BASO # 0.01 K/mm3 (0.0-2.0); BASO % 0.2 % (0.0-3.0); EOS # 0.1 (0.0-0.7); EOS % 1.4 % (1.5-5.0); GRAN # 4.31 (1.4-6.5); GRAN % 69.5 % (50.0-68.0); HEMOGLOBIN 13.7 g/dL (12.0-16.0); LYMPH # 1.5 (1.2-3.4); LYMPH % 24.6 % (22.0-35.0); MEAN CELL VOLUME 86.8 fl (80.0-105.0); MEAN CORPUSCULAR HEMOGLOBIN 30.1 pg (25.0-35.0); MEAN CORPUSCULAR HGB CONC 34.7 g/dl (31.0-37.0); MEAN PLATELET VOLUME 9.2 fl (7.0-11.0); MONO # 0.3 (0.1-0.6); MONO % 4.3 % (1.0-6.0); RBC 4.55 10^6/uL (3.5-6.1); RED CELL DISTRIBUTION WIDTH 13.5 % (11.5-14.5); WHITE BLOOD COUNT 6.2 10^3/ul (4.5-11.0)
[2017-08-21 09:09] LABS: ALB/GLOB RATIO 1.4 (1.1-1.8); ALBUMIN 4.2 g/dL (3.0-4.8); ALT/SGPT 22 U/L (7-56); AST/SGOT 15 U/L (14-36); BLOOD UREA NITROGEN 14 mg/dL (7-21); CALCIUM 9.4 mg/dL (8.4-10.5); GFR AFRICAN-AMERICAN > 60; GFR NON-AFRICAN AMERICAN > 60
[2017-08-21 09:10] LABS: INR 0.97 (0.93-1.08); PARTIAL THROMBOPLASTIN TIME 31.8 Seconds (25.1-36.5); PROTHROMBIN TIME 11.1 SECONDS (9.4-12.5)
[2017-08-21 09:18] LABS: B-TYPE NATRIURETIC PEPTIDE 75.5 pg/mL (0-450)
[2017-08-21 09:53] VITALS: BP 132/80; PULSE 72; RESP 18; O2SAT 98
--- NOTE | 2017-08-22 08:45 | CARD ---
APPROVED REPORT EKG Measurement Heart [id number] <Conclusion> Normal sinus rhythm LAD PRWP, probably due to lead positioning
== END 2017-08-21 09:53 | disposition home or self-care (01) ==
LOC: ED 07:45
DX: R60.9 Edema, unspecified (principal); F25.9 Schizoaffective disorder, unspecified; E11.9 Type 2 diabetes mellitus without complications; I10 Essential (primary) hypertension; I25.10 Atherosclerotic heart disease of native coronary artery without angina pectoris; F17.210 Nicotine dependence, cigarettes, uncomplicated
CPT/HCPCS: 80053; 82803; 82948; 83880; 84145; 85025; 85610; 85651; 85730; 86140; 87040; 93005; 96374; 96376; 99283; J1885; J2270

== ENCOUNTER 2017-08-23 17:35 | Inpatient (IN) | payer MEDICAID ==
[2017-08-23 19:30] LABS: BASO # 0.02 K/mm3 (0.0-2.0); BASO % 0.3 % (0.0-3.0); EOS # 0.1 (0.0-0.7); EOS % 1.7 % (1.5-5.0); GRAN # 4.17 (1.4-6.5); GRAN % 60.6 % (50.0-68.0); HEMOGLOBIN 13.1 g/dL (12.0-16.0); LYMPH # 2.3 (1.2-3.4); LYMPH % 33.3 % (22.0-35.0); MEAN CELL VOLUME 86.6 fl (80.0-105.0); MEAN CORPUSCULAR HEMOGLOBIN 29.7 pg (25.0-35.0); MEAN CORPUSCULAR HGB CONC 34.3 g/dl (31.0-37.0); MEAN PLATELET VOLUME 9.2 fl (7.0-11.0); MONO # 0.3 (0.1-0.6); MONO % 4.1 % (1.0-6.0); RBC 4.41 10^6/uL (3.5-6.1); RED CELL DISTRIBUTION WIDTH 13.4 % (11.5-14.5); WHITE BLOOD COUNT 6.9 10^3/ul (4.5-11.0)
[2017-08-23] MEDS ORDERED: Morphine 4 mg/ml ISec IVP STA ×2 (19:41→21:16)
[2017-08-23 19:50] LABS: ALB/GLOB RATIO 1.3 (1.1-1.8); ALBUMIN 4.1 g/dL (3.0-4.8); ALT/SGPT 19 U/L (7-56); AST/SGOT 18 U/L (14-36); BLOOD UREA NITROGEN 14 mg/dL (7-21); CALCIUM 9.4 mg/dL (8.4-10.5); GFR AFRICAN-AMERICAN > 60; GFR NON-AFRICAN AMERICAN > 60
[2017-08-23] MEDS ORDERED: Aztreonam 1 Gm in NS 100mL 100 ML IVPB STA (21:31)
[2017-08-23] MEDS ORDERED: Vancomycin 1gm in NS 250ml 1 GM/250 ML BAG IVPB STA (21:31)
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
[2017-08-24 00:49] VITALS: BMI 44.2
[2017-08-24] MEDS ORDERED: Morphine 4 mg/ml ISec IVP ONE (01:44)
[2017-08-24] MEDS: Divalproex 500 mg ER (ONCE DAILY formulation) PO SCH ×2 (09:31→21:29)
[2017-08-24] MEDS: Morphine 4 mg/ml ISec IVP PRN ×2 (09:34→13:21)
[2017-08-24] MEDS: diltiaZEM 240 mg/24 Hours CD Cap PO SCH (09:36)
[2017-08-24] MEDS ORDERED: Divalproex 500 mg DR(BID formulation) PO SCH ×2 (10:00→22:00)
[2017-08-24] MEDS ORDERED: Aztreonam 1 Gm in NS 100mL 100 ML IVPB SCH (10:00)
[2017-08-24] MEDS: Insulin Reg-HIGH-Coverage SC SCH ×3 (11:38→22:52)
--- NOTE | 2017-08-24 13:36 | PN ---
DATE: SUBJECTIVE: I saw her this morning. She is very nervous. The right leg is definitely a little bit better, still swollen. The redness is definitely getting smaller. She is on Abilify, aztreonam, Dilitiazem, Depakote, Vasotec, Lasix IV, morphine for pain as needed. I am waiting for what Infectious Disease has to say. PHYSICAL EXAMINATION: VITAL SIGNS: She has a 97.8 temperature; 87 pulse; 168/99 blood pressure, she will be back on her medicines for the blood pressure; 18 respiratory rate and 96% O2 saturation on room air. HEENT: Head is atraumatic, normocephalic. HEART: Regular rate. LUNGS: Clear to auscultation. ABDOMEN: Soft, obese, nontender. EXTREMITIES: The right leg was red, was still swollen, she is with Lasix 40 IV will help her with. LABORATORY DATA: Labs are the same, waiting for labs from today to populate. We will see what ID has to say about the right leg cellulitis, likely to change to p.o. I will, maybe she gets one more day or two we will see, but she filled outpatient Keflex and it got worse and she has cellulitis of the right leg and the patient with diabetes and history of bipolar disease. Darek Ramirez DO
[2017-08-24] MEDS ORDERED: Morphine 5 MG/ML SYRINGE IVP PRN (14:17)
[2017-08-24] MEDS: Morphine 4 mg/ml ISec IV PRN ×4 (14:57→23:06)
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
[2017-08-24] MEDS ORDERED: Vancomycin 1gm in NS 250ml 1 GM/250 ML BAG IVPB SCH (19:15)
[2017-08-24] MEDS: Aztreonam 1 Gm in NS 100mL 100 ML IVPB SCH (21:27)
[2017-08-25] MEDS: Morphine 4 mg/ml ISec IV PRN ×5 (03:21→21:15)
--- NOTE | 2017-08-25 05:30 | CON ---
DATE: 08/24/2017 LOCATION: Patient is seen early this morning in 570, bed 1. CHIEF COMPLAINT: Left leg erythema times several days. HISTORY OF PRESENT ILLNESS: A 56-year-old morbidly obese female with a BMI of 44, diverticulitis, diabetes, hypertension, arthritis, GERD, depression, anxiety, bipolar and who has a history of chronic lower extremity edema and cellulitis in the past, now admitted with right leg erythema and pain. REVIEW OF SYSTEM: Reveals no fevers, no chills, no nausea, no vomiting. There is no chest pain, shortness of breath. A 12-point review of systems is performed. PAST MEDICAL HISTORY: Significant for diverticulitis, diabetes, hypertension, arthritis, GERD, depression, anxiety, bipolar, coronary artery disease, morbid obesity, BMI of 44. PAST SURGICAL HISTORY: Noncontributory. ALLERGIES: PATIENT IS ALLERGIC TO AMOXICILLIN, CLARITHROMYCIN, CLAVULANIC ACID. MEDICATIONS AT HOME: Reviewed and on insulin, Lasix and Vasotec. PHYSICAL EXAMINATION: VITAL SIGNS: Patient is in bed with a temperature of 98, blood pressure is 168/90, respiratory rate of 20, heart rate of 87. HEENT: Unremarkable. NECK: Supple. LUNGS: Have decreased breath sounds. HEART: Normal S1, S2. ABDOMEN: Soft, nontender. No organomegaly. No rebound or guarding. No masses. EXTREMITIES: Examination of the leg reveals right leg erythema and no break in the skin, no discharge. Left leg has mild erythema, but there is significant erythema on the right leg. LABORATORY DATA: Reveals a white count of 6.9, hemoglobin of 13, platelets of 237. BUN of 14, creatinine of 0.8. ASSESSMENT AND PLAN: A 56-year-old female with diverticulitis, diabetes, hypertension, gastroesophageal reflux disease, depression, arthritis, anxiety, bipolar and coronary artery disease, morbid obesity with a BMI of 42% with a right leg cellulitis with multiple allergies. We will treat the patient with vancomycin and Azactam, must rule out underlying osteomyelitis, underlying peripheral vascular disease. We will order a sed rate and C-reactive protein. Recommend podiatry consultation and vascular consultation and patient had multiple admissions in the past in Psych and recommend MRI of lower extremity to rule out osteomyelitis in addition to vascular workup, rule out peripheral artery disease in a diabetic patient, and podiatric consultation. We will follow with you. Patient had a human immunodeficiency virus test in the past, which is negative. Michael Wells MD
[2017-08-25] MEDS: Aztreonam 1 Gm in NS 100mL 100 ML IVPB SCH ×3 (05:48→20:59)
[2017-08-25 07:18] LABS: HEMOGLOBIN 11.7 g/dL (12.0-16.0); MEAN CELL VOLUME 87.3 fl (80.0-105.0); MEAN CORPUSCULAR HEMOGLOBIN 29.3 pg (25.0-35.0); MEAN CORPUSCULAR HGB CONC 33.5 g/dl (31.0-37.0); MEAN PLATELET VOLUME 9.3 fl (7.0-11.0); RED CELL DISTRIBUTION WIDTH 13.4 % (11.5-14.5); WHITE BLOOD COUNT 5.5 10^3/ul (4.5-11.0)
[2017-08-25 07:52] LABS: ALB/GLOB RATIO 1.4 (1.1-1.8); ALBUMIN 3.5 g/dL (3.0-4.8); ALT/SGPT 22 U/L (7-56); AST/SGOT 19 U/L (14-36); BLOOD UREA NITROGEN 15 mg/dL (7-21); CALCIUM 8.9 mg/dL (8.4-10.5); GFR AFRICAN-AMERICAN > 60; GFR NON-AFRICAN AMERICAN > 60
[2017-08-25] MEDS: Insulin Reg-HIGH-Coverage SC SCH ×4 (08:39→22:19)
--- NOTE | 2017-08-25 09:48 | US ---
HISTORY: Leg pain and swelling. Evaluate for DVT PHYSICIAN(S): Aric Nielsen MD. TECHNIQUE: Duplex sonography and color-flow Doppler with graded compression were used to evaluate the deep venous systems of both lower extremities. FINDINGS: The visualized deep venous systems of both lower extremities are sonographically normal and compressible. Normal wave forms and augmentation are seen. There is no sonographic evidence for deep venous thrombosis in the visualized segments of both lower extremities. IMPRESSION: No sonographic evidence for deep venous thrombosis in the visualized segments of both lower extremities.
[2017-08-25] MEDS: Divalproex 500 mg ER (ONCE DAILY formulation) PO SCH ×2 (10:23→21:01)
[2017-08-25] MEDS: Vancomycin 1gm in NS 250ml 1 GM/250 ML BAG IVPB SCH ×2 (10:23→21:02)
[2017-08-25] MEDS: diltiaZEM 240 mg/24 Hours CD Cap PO SCH (10:24)
--- NOTE | 2017-08-25 12:40 | PN ---
DATE: SUBJECTIVE: I saw her resting comfortably in bed, the right leg is improving. Overall, she is doing fairly well. I spoke to Dr. Wells, Infectious Disease doctor who wants to have 1 more day of IV antibiotics on Abilify, aztreonam, diltiazem, Depakote, Elavil, insulin, Lasix, morphine, Ultram, vancomycin, Zestril. PHYSICAL EXAMINATION: VITAL SIGNS: She has a 98 temp, 68 pulse, 105/56 blood pressure, 18 respiratory rate, 97% O2 sat on room air. HEENT: Head is atraumatic, normocephalic. HEART: Regular rate. LUNGS: Decreased breath sounds. ABDOMEN: Soft, morbidly obese, nontender. EXTREMITIES: The right leg is much less red, less swollen. She is doing much better overall. I think the Lasix IV is really helping her. LABORATORY DATA: She has a 5.5 white count, 11.7 hemoglobin, 34.9 hematocrit with 200 platelets. 138 sodium, potassium 4.1, BUN is 50, creatinine 0.9, GFR is greater than 60, sugar is 231, calcium is 8.9, total bili is 0.2, AST is 19, ALT is 22, alk phos 55, total protein 6.1. PLAN: I am going to put her on something for the blood sugar is being elevated. I will add Januvia 50 mg, we will check her labs tomorrow and hopefully we can change it to tablets as per Infectious Disease tomorrow. She is here for cellulitis of the right leg, failed outpatient treatment. Darek Ramirez DO
--- NOTE | 2017-08-25 15:55 | MRI ---
MRI right ankle History: Cellulitis. Evaluate for osteomyelitis. Comparison: None available. Technique: Multi-echo multiplanar sequences were performed through the right ankle without the use of intravenous contrast. Findings: Reticulation and edema within the circumferential subcutaneous soft tissues suggestive for an underlying cellulitis. Anterior extensor tendons are preserved. Mild tenosynovitis of the posterior tibial tendon sheath. Remainder of the medial flexor tendons are preserved. Peroneal tendons are preserved. Thickening and fraying of the anterior tibiofibular ligament suggestive for chronic partial tear. Posterior tibiofibular ligament is preserved. Prominently thinned and attenuated anterior talofibular ligament suggestive for prominent partial tearing possibly acute on chronic. Clinical correlation. Fraying with increased signal noted at the level of Lisfranc ligament suggestive for possible partial tearing. Clinical correlation. Prominent degenerative changes noted at the 2nd 3rd and 4th metatarsal bases as well as the corresponding middle and lateral cuneiform bones suggestive for prominent degenerative changes and or osteochondral change. Prominent degenerative changes noted at the dorsal aspect of the talonavicular joint space with signal change in the marrow of the superior navicular suggestive for osteochondral change. Trace ankle joint effusion. Minimal subchondral cyst formation in the distal fibula. Thickening with increased signal seen within the distal Achilles tendon suggestive for a moderate tendinopathy. This extends from approximately 2.3 centimeters from the attachment on the posterior calcaneus. Thickening of the plantar fascia measuring up to 5 millimeters. Sinus tarsi is preserved. Trace ankle joint effusion. Deltoid ligament is preserved. Mild cartilage fibrillation overlying the medial aspect of the talar dome with some minimal reactive edema within the medial aspect of the talar dome suggestive for possible osteochondral change. Impression: 1. Reticulation and edema within the circumferential subcutaneous soft tissues suggestive for an underlying cellulitis. 2. Mild tenosynovitis of the posterior tibial tendon sheath. 3. Thickening and fraying of the anterior tibiofibular ligament suggestive for chronic partial tear. Prominently thinned and attenuated anterior talofibular ligament suggestive for prominent partial tearing possibly acute on chronic. Clinical correlation. 4. Fraying with increased signal noted at the level of Lisfranc ligament suggestive for possible moderate partial tearing. Clinical correlation. 5. Prominent degenerative changes noted at the 2nd 3rd and 4th metatarsal bases as well as the corresponding middle and lateral cuneiform bones suggestive for prominent degenerative changes and or osteochondral change. 6. Prominent degenerative changes noted at the dorsal aspect of the talonavicular joint space with signal change in the marrow of the superior navicular bone with reactive edema and decreased T1 signal suggestive for osteochondral change. 7. Trace ankle joint effusion. 8. Minimal subchondral cyst formation in the distal fibula. 9. Thickening with increased signal seen within the distal Achilles tendon suggestive for a moderate tendinopathy. This extends from approximately 2.3 centimeters from the attachment on the posterior calcaneus. 10. Thickening of the plantar fascia measuring up to 5 millimeters. 11. Trace ankle joint effusion. 12. Mild cartilage fibrillation overlying the medial aspect of the talar dome with some minimal reactive edema within the medial aspect of the talar dome suggestive for possible osteochondral change.
--- NOTE | 2017-08-25 17:38 | US ---
PROCEDURE: Lower extremity DANYEL exam HISTORY: Peripheral vascular disease with pain and claudication. Smoker. Diabetes. PHYSICIAN(S): Aric Nielsen MD. FINDINGS: The resting DANYEL's are normal: right, 1.25and left, 1.21. The brachial systolic pressures are symmetric. The high thigh pressures and waveforms are relatively normal. The calf PVR waveforms augment normally. No significant gradients are noted across the thighs. The ankle and metatarsal waveforms are relatively normal and symmetric. No significant pressure gradients are noted across the lower legs. IMPRESSION: 1. Normal DANYEL and PVR examination at rest.
--- NOTE | 2017-08-25 22:47 | PN ---
DATE: 08/25/2017 SUBJECTIVE: Patient is in bed, in no acute distress, nontoxic. PHYSICAL EXAMINATION: VITAL SIGNS: Temperature is 98, blood pressure is 105/50, respiratory rate of 21, heart rate of 68. HEENT: Unremarkable. NECK: Supple. LUNGS: Have decreased breath sounds. HEART: Normal S1, S2. ABDOMEN: Soft, nontender. EXTREMITIES: Examination of the leg, it still has mild erythema, although improved. LABORATORY DATA: Reveals a white count of 6.9, hemoglobin of 13, platelets of 237. Chemistries reveal a BUN of 15, creatinine of 0.9. Microbiology reveals the blood cultures are negative. Review of orders reveal the patient is on IV vancomycin and aztreonam. Patient had an ankle MRI suggestive of underlying cellulitis with mid tenosynovitis of the posterior tibial tendon sheath, chronic partial tear. ASSESSMENT AND PLAN: This is a 56-year-old female with diverticulitis, diabetes, hypertension, gastroesophageal reflux disease, depression, arthritis, anxiety, bipolar, coronary artery disease, morbid obesity with a body mass index of 42 with a right leg cellulitis with multiple allergies, currently on vancomycin and Azactam, improving. MRI findings are noted, tenosynovitis. I recommended podiatric consultation. Patient had Doppler's of the lower extremities with a normal ankle-branchial index and pulse volume recording and also no evidence of the deep venous thrombosis. We will continue vancomycin and Azactam based on clinical response of the right leg cellulitis. So, I recommend a podiatric consultation. Michael Wells MD
[2017-08-26] MEDS: Morphine 4 mg/ml ISec IV PRN ×4 (00:44→12:36)
[2017-08-26 04:36] VITALS: RESP 20
[2017-08-26] MEDS: Aztreonam 1 Gm in NS 100mL 100 ML IVPB SCH ×2 (05:48→13:36)
[2017-08-26 07:42] LABS: HEMOGLOBIN 12.1 g/dL (12.0-16.0); MEAN CELL VOLUME 86.9 fl (80.0-105.0); MEAN CORPUSCULAR HEMOGLOBIN 29.8 pg (25.0-35.0); MEAN CORPUSCULAR HGB CONC 34.3 g/dl (31.0-37.0); MEAN PLATELET VOLUME 9.5 fl (7.0-11.0); RBC 4.06 10^6/uL (3.5-6.1); RED CELL DISTRIBUTION WIDTH 13.3 % (11.5-14.5); WHITE BLOOD COUNT 5.3 10^3/ul (4.5-11.0)
[2017-08-26 07:56] LABS: ALB/GLOB RATIO 1.4 (1.1-1.8); ALBUMIN 3.7 g/dL (3.0-4.8); GFR AFRICAN-AMERICAN > 60; GFR NON-AFRICAN AMERICAN > 60
[2017-08-26 07:58] LABS: ALT/SGPT 18 U/L (7-56); AST/SGOT 18 U/L (14-36); BLOOD UREA NITROGEN 15 mg/dL (7-21)
[2017-08-26 08:06] VITALS: TEMP 98.2; O2SAT 93
[2017-08-26] MEDS: Insulin Reg-HIGH-Coverage SC SCH ×2 (08:11→12:12)
[2017-08-26] MEDS: Divalproex 500 mg ER (ONCE DAILY formulation) PO SCH (09:33)
[2017-08-26] MEDS: diltiaZEM 240 mg/24 Hours CD Cap PO SCH (09:33)
[2017-08-26] MEDS: Vancomycin 1gm in NS 250ml 1 GM/250 ML BAG IVPB SCH (09:34)
[2017-08-26 09:35] VITALS: PULSE 81
[2017-08-26 11:33] VITALS: BP 106/67
--- NOTE | 2017-08-26 15:37 | PN ---
DATE: SUBJECTIVE: I see her sitting in bed. She is having more right leg redness that bothers her, awaiting for Podiatry to come in and see her. From the MRI results, she is on IV antibiotics for the cellulitis as per Infectious Disease. PHYSICAL EXAMINATION: VITAL SIGNS: Temperature 98.2, pulse 81, blood pressure 110/75, respiratory rate 20, and 93% O2 sat on room air. HEENT: Head is atraumatic, normocephalic. HEART: Regular rate. LUNGS: Clear to auscultation. ABDOMEN: Soft, morbidly obese, nontender. EXTREMITIES: A little bit swollen, but the right leg is less red, and had some tenosynovitis on the MRI. She is currently on Abilify, Azactam, Cardizem, Depakote, Elavil, insulin, Januvia, Lasix IV, morphine, Ultram, vancomycin IV, and Zestril. She has a 140 sodium, potassium 4.5. SMA-20 was good. The CBC is good. She was seen by Infectious Disease. She had the ankle MRI. Awaiting for Podiatry to see her. When I could change her over to oral antibiotics, I will. As per Infectious Disease, this underlying cellulitis is tenosynovitis of the posterior tibial tendon sheath as per Infectious Disease. Darek Ramirez DO
[2017-08-26] MEDS ORDERED: Clotrimazole/Betamethasone Cream(15 gm) TOP SCH (18:00)
--- NOTE | 2017-08-26 23:07 | CON ---
DATE: HISTORY OF PRESENT ILLNESS: A 56-year-old morbidly obese female, seen at bedside for consultation, evaluation and management of bilateral lower extremity cellulitis with the right leg more edematous and erythematous than the left. The patient reports a history of left leg cellulitis and states that she had experienced redness, swelling and pain in the right leg and presented to the emergency room. 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 PAST SURGICAL HISTORY: Noncontributory. MEDICATIONS: Reviewed in JUL. ALLERGIES: CURRENT ALLERGIES INCLUDE AMOXICILLIN, CLAVULANIC ACID AND CLARITHROMYCIN. VITAL SIGNS: The patient's vital signs revealed temperature of 98.2, pulse rate of 70, blood pressure of 106/66, respiratory rate of 20. LABORATORY DATA: Laboratory findings reveal white count of 5.3, hemoglobin of 12.1, hematocrit of 35.3, platelet count of 210 and an ESR 15. Microbiology shows no growth after 24 hours in blood. OBJECTIVE: Nonpalpable posterior tibial pulse secondary to nonpitting lower extremity edema. Weakly palpable dorsalis pedis pulses noted bilaterally. Protective sensation is grossly diminished bilaterally using 5.07 g monofilament wire testing. There is noted to be edema and erythema in both legs. However, the right leg is much greater than the left and in fact the area of greatest edema and erythema was marked while in the ER and there is noted to be severe recession of the edematous and erythematous changes. The patient does have pain upon palpation of the right gastroc soleus complex; however, venous duplex reveals no sonographic evidence for deep vein thrombosis. Ankle MRI of the right ankle reveals circumferential subcutaneous soft tissue edema, which is indicative of underlying cellulitis. There is noted to be post-traumatic changes to the anterior tibiotalar ligament, anterior tibiofibular ligament, Lisfranc ligament and the distal Achilles tendon. There are noted to be osteochondral changes to the talar dome as well. These are all incidental findings. ASSESSMENT: Lower extremity cellulitis, right lower leg on uncontrolled insulin-dependent diabetic. PLAN: The was examined. Legs were cleansed with normal sterile saline. We will apply Xeroform and a light compressive dressing to the right lower leg. Infectious Disease note was read and appreciated. We will continue with antibiotics as per Infectious Disease. We will order Lotrisone cream to be applied to the right lower leg daily. The patient will be seen and followed while in-house. Mj Watson DPM
== END 2017-08-26 15:25 | disposition home or self-care (01) | DRG 277 ==
LOC: ED 17:35 → ERH 21:56 → 5RSO 08-24 00:02
PROVIDERS: ADMIT Family Medicine; ATTEND Family Medicine
DX: L03.115 Cellulitis of right lower limb (principal); E11.40 Type 2 diabetes mellitus with diabetic neuropathy, unspecified; M65.861 Other synovitis and tenosynovitis, right lower leg; I10 Essential (primary) hypertension; I25.10 Atherosclerotic heart disease of native coronary artery without angina pectoris; M19.90 Unspecified osteoarthritis, unspecified site; K21.9 Gastro-esophageal reflux disease without esophagitis; E11.65 Type 2 diabetes mellitus with hyperglycemia; F41.9 Anxiety disorder, unspecified; F17.210 Nicotine dependence, cigarettes, uncomplicated; F31.9 Bipolar disorder, unspecified; E66.01 Morbid (severe) obesity due to excess calories; Z79.4 Long term (current) use of insulin; Z68.41 Body mass index [BMI] 40.0-44.9, adult; Z88.0 Allergy status to penicillin; Z88.8 Allergy status to other drugs, medicaments and biological substances

== ENCOUNTER 2017-09-05 19:00 | Emergency (ER) | payer MEDICAID ==
[2017-09-05 19:01] VITALS: BMI 44.2
[2017-09-05 20:47] VITALS: RESP 18
--- NOTE | 2017-09-05 21:35 | ED PDOC ---
Arrival/HPI - General Chief Complaint: Abdominal Pain Time Seen by Provider: 09/05/17 20:02 Historian: Patient - History of Present Illness Narrative History of Present Illness (Text): 09/05/17 21:31 56yo morbidly obese female with PMhx of hypertension, depression, diverticulitis , colitis who present with complaint of upper and lower abdominal pain, bloating , rectal pain with bowel movement x 4days. states pain is intermittent. She denies nausea, vomiting, diarrhea, constipation, melena, hematemesis, fever, chills, urinary symptoms, any other complaint. Past Medical History - Provider Review Nursing Documentation Reviewed: Yes - Past History Past History: Non-Contributing - Infectious Disease Hx of Infectious Diseases: None - Tetanus Immunization Tetanus Immunization: Unknown - Past Medical History Past Medical History: Non-Contributing - Cardiac Hx Cardiac Disorders: Yes Hx Hypertension: Yes - Pulmonary Hx Respiratory Disorders: Yes Hx Bronchitis: Yes Hx Chronic Obstructive Pulmonary Disease (COPD): No Hx Emphysema: No Hx Pneumonia: Yes Hx Respiratory Aspiration: No Hx Respiratory Tract Infection: No Hx Sleep Apnea: No Hx Tuberculosis: No - Neurological Hx Neurological Disorder: Yes Hx Migraine: Yes - HEENT Hx HEENT Disorder: No - Renal Hx Renal Disorder: No - Endocrine/Metabolic Hx Endocrine Disorders: Yes Hx Diabetes Mellitus Type 2: Yes - Hematological/Oncological Hx Blood Disorders: No - Integumentary Hx Dermatological Disorder: Yes Other/Comment: cellulitis to the lower extremities since 08/23 - Musculoskeletal/Rheumatological Hx Musculoskeletal Disorders: Yes Hx Arthritis: Yes Hx Back Pain: Yes Hx Falls: No - Gastrointestinal Hx Gastrointestinal Disorders: Yes Hx Diverticulitis: Yes Hx Gastroesophageal Reflux: Yes Other/Comment: colitis - Genitourinary/Gynecological Hx Genitourinary Disorders: Yes Hx Urinary Tract Infection: Yes - Psychiatric Hx Anxiety: Yes Hx Bipolar Disorder: Yes Hx Depression: Yes Hx Emotional Abuse: No Hx Panic Disorder: Yes Hx Physical Abuse: No Hx Schizophrenia: Yes Hx Substance Use: No - Past Surgical History Past Surgical History: Non-Contributing - Surgical History Hx Cardiac Catheterization: Yes Other/Comment: Colonoscopy. Endoscopy - Anesthesia Hx Anesthesia: Yes Hx Anesthesia Reactions: No Hx Malignant Hyperthermia: No - Suicidal Assessment Feels Threatened In Home Enviroment: No Family/Social History - Physician Review Nursing Documentation Reviewed: Yes Family/Social History: Unknown Family HX Smoking Status: Heavy Smoker > 10 Cigarettes Daily Hx Alcohol Use: No Hx Substance Use: No Hx Substance Use Treatment: No Allergies/Home Meds Allergies/Adverse Reactions: Allergies amoxicillin [From Augmentin] Allergy (Verified 08/23/17 18:03) NAUSEA clarithromycin [From Biaxin] Allergy (Verified 08/23/17 18:03) RASH clavulanic acid [From Augmentin] Allergy (Verified 08/23/17 18:03) NAUSEA Home Medications: Home Meds Medication Instructions Recorded Confirmed ARIPiprazole [Abilify] 10 mg PO DAILY 08/21/17 09/05/17 Enalapril Maleate [Vasotec] 10 mg PO DAILY 08/21/17 09/05/17 [id number] CD [Cardizem CD] 240 mg PO DAILY 08/21/17 09/05/17 Review of Systems - Physician Review All systems were reviewed & negative as marked: Yes - Review of Systems Constitutional: Normal Eyes: Normal ENT: Normal Respiratory: Normal Cardiovascular: Normal Gastrointestinal: Abdominal Pain. absent: Constipation, Diarrhea, Nausea, Vomiting, Hematochezia, Hematemesis Genitourinary Female: Normal Musculoskeletal: Normal Skin: Normal Neurological: Normal Endocrine: Normal Hemo/Lymphatic: Normal Psychiatric: Normal Physical Exam Vital Signs Reviewed: Yes Vital Signs Temp Pulse Resp BP Pulse Ox 09/05/17 20:43 97.8 F 102 H 18 133/87 100 Temperature: Afebrile Blood Pressure: Normal Pulse: Regular Respiratory Rate: Normal Appearance: Positive for: Well-Appearing, Non-Toxic, Comfortable Pain Distress: None Mental Status: Positive for: Alert and Oriented X 3 - Systems Exam Head: Present: Atraumatic, Normocephalic Pupils: Present: PERRL Extroacular Muscles: Present: EOMI Conjunctiva: Present: Normal Mouth: Present: Moist Mucous Membranes Neck: Present: Normal Range of Motion Respiratory/Chest: Present: Clear to Auscultation, Good Air Exchange. No: Respiratory Distress, Accessory Muscle Use Cardiovascular: Present: Regular Rate and Rhythm, Normal S1, S2. No: Murmurs Abdomen: Present: Tenderness (Epigastric and LUQ tenderness), Distention ( Secondaryto body habitus), Other (Soft). No: Peritoneal Signs, Rebound, Guarding, McBurney's Point Tender, Rovsing's Sign Present Back: Present: Normal Inspection Upper Extremity: Present: Normal Inspection. No: Cyanosis, Edema Lower Extremity: Present: Normal Inspection. No: Edema Neurological: Present: GCS=15, CN II-XII Intact, Speech Normal Skin: Present: Warm, Dry, Normal Color. No: Rashes Psychiatric: Present: Alert, Oriented x 3, Normal Insight, Normal Concentration Medical Decision Making ED Course and Treatment: 09/06/17 01:02 PT in ED for stated history. she was not in any distress. She declined pepcid and requested opiate. Her lab was unremarkable. They is suspicious drug seeking behavior exhibition from the pt. Abdominal CT IMPRESSION: - Segmental wall thickening of the proximal sigmoid colon, suspicious for focal/ segmental colitis. - Otherwise, no evidence of significant acute process. - See above for remaining findings. IT was noted that pt was given Doxy and Tramdol recently by another practiorner on 08/16/17. she however refused filling Tramadol rx. states she was only given Doxy and still on Doxy. She was placed on Flagyl and plan is to DC her home. Case was DW Dr. Ramirez and he agreed with the plan. Notes that pt should f/u with him in the office. Plan and result was DW the pt. she was advised to continue with Doxy and flagyl added for the CT finding and she was referred to her PMD. - Lab Interpretations Lab Results: 09/05/17 23:29 09/05/17 21:56 Lab Results 09/05/17 23:29: WBC 6.5 D, RBC 4.19, Hgb 12.6, Hct 36.2, MCV 86.4, MCH 30.1, MCHC 34.8, RDW 13.1, Plt Count 222, MPV 9.4, Gran % 45.4 L, Lymph % (Auto) 46.9 H, Clarke % (Auto) 5.4, Eos % (Auto) 2.1, Baso % (Auto) 0.2, Gran # 2.97, Lymph # (Auto) 3.1, Clarke # (Auto) 0.4, Eos # (Auto) 0.1, Baso # (Auto) 0.01 09/05/17 21:56: Sodium 139, Potassium 4.1, Chloride 99, Carbon Dioxide 29, Anion Gap 14, BUN 16, Creatinine 0.8, Est GFR ( Amer) > 60, Est GFR (Non- Af Amer) > 60, Random Glucose 204 H, Calcium 9.3, Total Bilirubin 0.2, AST 16, ALT 24, Alkaline Phosphatase 70, Total Protein 6.7, Albumin 3.8, Globulin 2.9, Albumin/Globulin Ratio 1.3, Lipase 38 09/05/17 21:56: PT 12.2, INR 1.07, APTT 34.0 - RAD Interpretation Radiology Orders: 09/05/17 21:27 ABD & PELVIS W/O PO OR IV CONT [CT] Stat - Medication Orders Current Medication Orders: Discontinued Medications Ciprofloxacin (Cipro) 500 mg PO ONCE STA PRN Reason: Protocol Stop: 09/05/17 23:52 Last Admin: 09/06/17 00:34 Dose: 500 mg Famotidine (Pepcid 20mg/50ml Premix) 20 mg in 50 mls @ 200 mls/hr IVPB ONCE ONE Stop: 09/05/17 21:59 Last Admin: 09/05/17 21:45 Dose: Not Given Non-Admin Reason: Patient Refused Metronidazole (Flagyl) 500 mg PO STAT STA PRN Reason: Protocol Stop: 09/05/17 23:53 Last Admin: 09/06/17 00:34 Dose: 500 mg Tramadol HCl (Ultram) 50 mg PO STAT STA Stop: 09/05/17 23:54 Last Admin: 09/06/17 00:34 Dose: 50 mg MAR Pain Assessment Document 09/06/17 00:34 LA (Rec: 09/06/17 00:34 [id number]) Pain Reassessment Is this a pain reassessment? No Sleep Is patient sleeping during reassessment? No Presence of Pain Presence of Pain Yes Pain Scale Used Pain Scale Used Numeric Location Pain Location Body Site Abdomen Disposition/Present on Arrival - Present on Arrival Any Indicators Present on Arrival: No History of DVT/PE: No History of Uncontrolled Diabetes: No Urinary Catheter: No History of Decub. Ulcer: No History Surgical Site Infection Following: None - Disposition Have Diagnosis and Disposition been Completed?: Yes Diagnosis: Abdominal pain Disposition: HOME/ ROUTINE Disposition Time: 23:55 Patient Plan: Discharge Patient Problems: Current Active Problems Problem Status Onset Abdominal pain Acute Condition: STABLE Discharge Instructions (ExitCare): Acute Abdomen (Belly Pain) Additional Instructions: Follow up with your Doctor, Dr. Ramirez Return to ED for any new symptoms Prescriptions: Ciprofloxacin HCl [Cipro] 500 mg PO BID #14 tab metroNIDAZOLE [Flagyl] 500 mg PO BID #14 tab traMADol [Ultram] 50 mg PO TID #9 tab Referrals: Darek Ramirez DO [Primary Care Provider] - Follow up with primary Forms: [facility] (Bulgarian)
[2017-09-05] MEDS ORDERED: Famotidine 20mg/50ml 20 MG/50 ML BAG IVPB ONE (21:45)
[2017-09-05 22:27] LABS: INR 1.07 (0.93-1.08); PROTHROMBIN TIME 12.2 SECONDS (9.4-12.5)
[2017-09-05 22:28] LABS: ALB/GLOB RATIO 1.3 (1.1-1.8); ALBUMIN 3.8 g/dL (3.0-4.8); ALT/SGPT 24 U/L (7-56); AST/SGOT 16 U/L (14-36); BLOOD UREA NITROGEN 16 mg/dL (7-21); CALCIUM 9.3 mg/dL (8.4-10.5); GFR AFRICAN-AMERICAN > 60; GFR NON-AFRICAN AMERICAN > 60; LIPASE 38 U/L (23-300)
[2017-09-05 23:38] LABS: BASO # 0.01 K/mm3 (0.0-2.0); BASO % 0.2 % (0.0-3.0); EOS # 0.1 (0.0-0.7); EOS % 2.1 % (1.5-5.0); GRAN # 2.97 (1.4-6.5); GRAN % 45.4 % (50.0-68.0); HEMOGLOBIN 12.6 g/dL (12.0-16.0); LYMPH # 3.1 (1.2-3.4); LYMPH % 46.9 % (22.0-35.0); MEAN CELL VOLUME 86.4 fl (80.0-105.0); MEAN CORPUSCULAR HEMOGLOBIN 30.1 pg (25.0-35.0); MEAN CORPUSCULAR HGB CONC 34.8 g/dl (31.0-37.0); MEAN PLATELET VOLUME 9.4 fl (7.0-11.0); MONO # 0.4 (0.1-0.6); MONO % 5.4 % (1.0-6.0); RBC 4.19 10^6/uL (3.5-6.1); RED CELL DISTRIBUTION WIDTH 13.1 % (11.5-14.5); WHITE BLOOD COUNT 6.5 10^3/ul (4.5-11.0)
--- NOTE | 2017-09-05 23:43 | CT ---
EXAM: CT Abdomen and Pelvis Without Intravenous Contrast EXAM DATE/TIME: 09/05/2017 9:27 PM CLINICAL HISTORY: 56 years old, female; Pain; Abdominal pain; Acute TECHNIQUE: Axial computed tomography images of the abdomen and pelvis without intravenous contrast. All CT scans at this facility use one or more dose reduction techniques, viz.: automated exposure control; ma/kV adjustment per patient size (including targeted exams where dose is matched to indication; i.e. head); or iterative reconstruction technique. Coronal and sagittal reformatted images were created and reviewed. COMPARISON: Prior CT abdomen and pelvis of 2017-04-30 FINDINGS: LUNG BASES: No significant abnormality seen. ABDOMEN: LIVER: No acute abnormality of the liver identified. GALLBLADDER AND BILE DUCTS: No CT evidence of acute cholecystitis. No evidence of significant biliary ductal dilatation. PANCREAS: No CT evidence of acute pancreatitis. SPLEEN: No acute abnormality of the spleen identified. ADRENALS: No acute abnormality of the adrenal glands identified. KIDNEYS AND URETERS: Bilateral perinephric stranding, a nonspecific finding. No acute abnormality of the kidneys identified. STOMACH AND BOWEL: Mild to moderate focal/segmental wall thickening involving the proximal sigmoid colon. There is a tiny amount of nearby fluid in the left retroperitoneal space. Findings are suspicious for segmental colitis, in an acute setting. Colonic diverticulosis, with no evidence of acute diverticulitis. Retained stool noted throughout the colon, with no evidence of a significant large bowel obstruction or fecal impaction. Otherwise, no significant abnormality of the bowel is identified. No evidence of small bowel obstruction. PELVIS: APPENDIX: High density material seen in the lumen of the appendix. This could represent retained oral contrast from a prior study versus appendicoliths. There are no findings to suggest acute appendicitis. BLADDER: No acute abnormality of the bladder identified. REPRODUCTIVE:No acute abnormality of the reproductive organs is seen. No acute abnormality of the uterus identified. No evidence of large adnexal masses. ABDOMEN and PELVIS: INTRAPERITONEAL SPACE: No evidence of free intraperitoneal air or fluid. BONES/JOINTS: Bony structures appear demineralized. SOFT TISSUES: No acute abnormality of the visualized soft tissues is seen. VASCULATURE: No evidence of abdominal aortic aneurysm. No evidence of periaortic hemorrhage. LYMPH NODES: Multiple small lymph nodes seen in the anterior pelvis and inguinal regions bilaterally, none appearing pathologically enlarged. This is a nonspecific finding. No evidence of diffuse pathologic lymphadenopathy. IMPRESSION: - Segmental wall thickening of the proximal sigmoid colon, suspicious for focal/segmental colitis. - Otherwise, no evidence of significant acute process. - See above for remaining findings.
[2017-09-06 02:00] VITALS: BP 138/85; PULSE 90; TEMP 98; O2SAT 99
== END 2017-09-06 | disposition home or self-care (01) ==
LOC: ED 19:00
DX: R10.30 Lower abdominal pain, unspecified (principal); E11.9 Type 2 diabetes mellitus without complications; E66.01 Morbid (severe) obesity due to excess calories; F20.9 Schizophrenia, unspecified; I10 Essential (primary) hypertension; F17.210 Nicotine dependence, cigarettes, uncomplicated

== ENCOUNTER 2017-11-29 18:12 | Observation (INO) | payer MEDICAID ==
[2017-11-29] MEDS ORDERED: Sodium Chloride 0.9% 1,000 ML IV STA (18:48)
--- NOTE | 2017-11-29 18:48 | ED PDOC ---
Arrival/HPI - General Chief Complaint: Chest Pain Time Seen by Provider: 11/29/17 18:27 Historian: Patient - History of Present Illness Narrative History of Present Illness (Text): 11/29/17 A 56 year old female w/PMhx of CAD, hypertension, schizophrenia, diverticulitis , colitis, diabetes, intermittent bilateral LE cellulitis, presents to the emergency department for evaluation of dry cough for past 3-4 days associated with Left sided chest pain, chills, sweating, low grade fever. Describes as left sided pain, constant, worse with cough. Also c/o Right sided body pain, staying " my liver hurts". Otherwise, pt denies high fever, severe headache, dizziness, neck pain, drooling, dysphagia, dyspnea, palpitation, SOB, wheezing, N/V/D or change in appetite, UTI sx, denies recent travel or known sick contact. At the time of evaluation, pt is awake, comfortable, not in any apparent distress. Past Medical History - Provider Review Nursing Documentation Reviewed: Yes - Travel History Have you recently traveled outside [place] w/in the past 3 mons?: No - Past History Past History: Non-Contributing - Infectious Disease Hx of Infectious Diseases: None - Tetanus Immunization Tetanus Immunization: Unknown - Past Medical History Past Medical History: Non-Contributing - Cardiac Hx Cardiac Disorders: Yes Hx Hypertension: Yes - Pulmonary Hx Respiratory Disorders: Yes Hx Bronchitis: Yes Hx Chronic Obstructive Pulmonary Disease (COPD): No Hx Emphysema: No Hx Pneumonia: Yes Hx Respiratory Aspiration: No Hx Respiratory Tract Infection: No Hx Sleep Apnea: No Hx Tuberculosis: No - Neurological Hx Neurological Disorder: Yes Hx Migraine: Yes - HEENT Hx HEENT Disorder: No - Renal Hx Renal Disorder: No - Endocrine/Metabolic Hx Endocrine Disorders: Yes Hx Diabetes Mellitus Type 2: Yes - Hematological/Oncological Hx Blood Disorders: No - Integumentary Hx Dermatological Disorder: Yes Other/Comment: cellulitis to the lower extremities since 08/23 - Musculoskeletal/Rheumatological Hx Musculoskeletal Disorders: Yes Hx Arthritis: Yes Hx Back Pain: Yes Hx Falls: No - Gastrointestinal Hx Gastrointestinal Disorders: Yes Hx Diverticulitis: Yes Hx Gastroesophageal Reflux: Yes Other/Comment: colitis - Genitourinary/Gynecological Hx Genitourinary Disorders: Yes Hx Urinary Tract Infection: Yes - Psychiatric Hx Anxiety: Yes Hx Bipolar Disorder: Yes Hx Depression: Yes Hx Emotional Abuse: No Hx Panic Disorder: Yes Hx Physical Abuse: No Hx Schizophrenia: Yes Hx Substance Use: No - Past Surgical History Past Surgical History: Non-Contributing - Surgical History Hx Cardiac Catheterization: Yes Other/Comment: Colonoscopy. Endoscopy - Anesthesia Hx Anesthesia: Yes Hx Anesthesia Reactions: No Hx Malignant Hyperthermia: No - Suicidal Assessment Feels Threatened In Home Enviroment: No Family/Social History - Physician Review Nursing Documentation Reviewed: Yes Family/Social History: No Known Family HX Smoking Status: Heavy Smoker > 10 Cigarettes Daily Hx Alcohol Use: No Hx Substance Use: No Hx Substance Use Treatment: No Allergies/Home Meds Allergies/Adverse Reactions: Allergies amoxicillin [From Augmentin] Allergy (Verified 08/23/17 18:03) NAUSEA clarithromycin [From Biaxin] Allergy (Verified 08/23/17 18:03) RASH clavulanic acid [From Augmentin] Allergy (Verified 08/23/17 18:03) NAUSEA Home Medications: Home Meds Medication Instructions Recorded Confirmed ARIPiprazole [Abilify] 1 tab PO DAILY 11/29/17 11/29/17 Amitriptyline [Elavil] 100 mg PO HS 11/29/17 11/29/17 Divalproex [Depakote ER] 1,000 mg PO HS 11/29/17 11/29/17 Enalapril Maleate [Vasotec] 1 tab PO DAILY 11/29/17 11/29/17 Furosemide [Lasix] 1 tab PO DAILY 11/29/17 11/29/17 Insulin NPH Hum/Reg Insulin Hm 0 ml SC ACBD 11/29/17 11/29/17 [Humulin 70/30 70 U/ml-30 U/ml 10 ml] clonazePAM [Klonopin] 1 tab PO TID 11/29/17 11/29/17 Review of Systems - Review of Systems Constitutional: Fatigue, Fevers, Night Sweats Eyes: Normal ENT: Rhinorrhea. absent: Sore Throat Respiratory: Cough. absent: SOB, Sputum Cardiovascular: Chest Pain. absent: Palpitations, Edema, Orthopnea, Syncope Gastrointestinal: Abdominal Pain. absent: Constipation, Diarrhea, Nausea, Vomiting, Hematochezia, Hematemesis Genitourinary Female: Normal. absent: Dysuria, Frequency Musculoskeletal: Normal Skin: Normal. absent: Rash Neurological: Normal Endocrine: Normal Hemo/Lymphatic: Normal Psychiatric: Normal Physical Exam Vital Signs Reviewed: Yes Vital Signs Temp Pulse Pulse Resp BP Pulse Ox 11/29/17 22:00 92 H 11/29/17 21:16 98.8 F 88 88 16 109/61 11/29/17 19:15 88 16 109/61 97 11/29/17 18:13 98.8 F 93 H 18 145/81 98 Temperature: Afebrile Blood Pressure: Normal Pulse: Regular Respiratory Rate: Normal Appearance: Positive for: Well-Appearing, Non-Toxic, Comfortable Pain Distress: None Mental Status: Positive for: Alert and Oriented X 3 - Systems Exam Head: Present: Normocephalic Conjunctiva: Present: Normal Ears: Present: NORMAL TM Mouth: Present: Moist Mucous Membranes, Normal Lips. No: Drooling Pharnyx: No: ERYTHEMA, EXUDATE, TONSILS ENLARGED Nose (Internal): Present: Moist Neck: Present: Trachea Midline. No: JVD, Bruit Respiratory/Chest: Present: Clear to Auscultation, Good Air Exchange. No: Respiratory Distress, Accessory Muscle Use Cardiovascular: Present: Regular Rate and Rhythm, Normal S1, S2. No: Murmurs Abdomen: No: Tenderness, Distention, Peritoneal Signs, Rebound, Guarding Upper Extremity: Present: Normal ROM, NORMAL PULSES. No: Deformity Lower Extremity: Present: NORMAL PULSES, Normal ROM. No: Edema, CALF TENDERNESS , Swelling, Deformity Neurological: Present: GCS=15, Speech Normal Skin: Present: Warm, Dry, Normal Color. No: Rashes Psychiatric: Present: Alert, Oriented x 3, Normal Insight, Normal Concentration Medical Decision Making ED Course and Treatment: 11/29/17 19:51 Pt remained stable during the ED evaluation. Pt was seen by her PMD and admission arranged to tele OBS with Dx: Chest pain. results review and discussed with patient, agrees with plan. - Lab Interpretations Lab Results: 11/29/17 18:40 11/29/17 18:40 Lab Results 11/29/17 18:40: Amylase 50 11/29/17 18:40: Sodium 140, Potassium 4.0, Chloride 100, Carbon Dioxide 29, Anion Gap 15, BUN 14, Creatinine 0.9, Est GFR ( Amer) > 60, Est GFR (Non- Af Amer) > 60, Random Glucose 197 H, Calcium 9.4, Total Bilirubin 0.4, AST 15, ALT 22, Alkaline Phosphatase 67, Lactate Dehydrogenase 295 L, Total Creatine Kinase 28 L, Troponin I < 0.01, Total Protein 6.9, Albumin 3.9, Globulin 3.0, Albumin/Globulin Ratio 1.3 11/29/17 18:40: PT 12.3, INR 1.08, APTT 33.5 11/29/17 18:40: WBC 5.6, RBC 4.42, Hgb 13.0, Hct 37.6, MCV 85.1, MCH 29.4, MCHC 34.6, RDW 13.1, Plt Count 183, MPV 9.0, Gran % 58.1, Lymph % (Auto) 35.4 H, [place] % (Auto) 4.8, Eos % (Auto) 1.3 L, Baso % (Auto) 0.4, Gran # 3.24, Lymph # ( Auto) 2.0, [place] # (Auto) 0.3, Eos # (Auto) 0.1, Baso # (Auto) 0.02 - RAD Interpretation Radiology Orders: 11/29/17 18:46 CHEST PORTABLE [RAD] Stat 11/29/17 19:09 GALLBLADDER & HEPATIC [US] Stat CXR (+) cardiomegaly Gallbladder US IMPRESSION: No evidence of gallstones. Fatty infiltration of the liver - EKG Interpretation EKG Interpretation (Text): 11/29/17 18:19 SR@95/min, LAD, no acute T wave or ST-T changes. Interpreted by ED Physician: Yes - Medication Orders Current Medication Orders: Amitriptyline HCl (Elavil) 100 mg PO HS [facility] Last Admin: 11/30/17 00:43 Dose: 100 mg Clonazepam (Klonopin) 1 mg PO TID [facility] PRN Reason: Protocol Last Admin: 11/30/17 10:11 Dose: 1 mg Behavioural Document 11/30/17 10:11 KMS (Rec: 11/30/17 10:11 KMS [place] [id number]) Maintenance Maintenance Dose Yes Furosemide (Lasix) 40 mg PO DAILY [facility] Last Admin: 11/30/17 10:10 Dose: 40 mg MAR Blood Pressure Document 11/30/17 10:10 KMS (Rec: 11/30/17 10:11 KMS [place] [id number]) Blood Pressure Blood Pressure (100/60-150/90) 130/80 Ketorolac Tromethamine (Toradol) 30 mg IVP Q8 PRN PRN Reason: Pain, moderate (4-7) Last Admin: 11/30/17 10:19 Dose: 30 mg MAR Pain Assessment Document 11/30/17 10:19 KMS (Rec: 11/30/17 10:20 KMS [place] [id number]) Pain Reassessment Is this a pain reassessment? No Presence of Pain Presence of Pain Yes Pain Scale Used Pain Scale Used Numeric Location Left, Right or Bilateral Right Pain Location Body Site Back Hip Description Description Constant IVP Administration Document 11/30/17 10:19 KMS (Rec: 11/30/17 10:20 [place] [id number]) Charges for Administration # of IVP Administrations 1 Lisinopril (Zestril) 10 mg PO DAILY [facility] Last Admin: 11/30/17 10:11 Dose: 10 mg MAR Pulse and Blood Pressure Document 11/30/17 10:11 KMS (Rec: 11/30/17 10:11 KMS [place] [id number]) Pulse Pulse Rate (60-90) 76 Blood Pressure Blood Pressure (100/60-150/90) 130/80 Discontinued Medications Albuterol Sulfate (Albuterol 0.083% Inhal Lauryn (2.5 Mg/3 Ml) Ud) 2.5 mg IH STAT STA Stop: 11/29/17 19:59 Last Admin: 11/29/17 20:12 Dose: 2.5 mg Aripiprazole (Abilify) 10 mg PO STAT STA PRN Reason: Protocol Stop: 11/30/17 00:26 Last Admin: 11/30/17 00:43 Dose: 10 mg Behavioural Document 11/30/17 00:43 TTC (Rec: 11/30/17 00:43 [id number] Maintenance Maintenance Dose Yes Re-Assess: Reassess Psych Meds Document 11/30/17 01:43 TTC (Rec: 11/30/17 07:17 TTC [id number]) Reassess Psych Med Effective Aspirin (Ecotrin) 325 mg PO STAT STA Stop: 11/29/17 19:47 Last Admin: 11/29/17 19:55 Dose: 325 mg Divalproex Sodium (Depakote Er(Once Daily)) 1,000 mg PO STAT STA PRN Reason: Protocol Stop: 11/30/17 00:26 Last Admin: 11/30/17 00:43 Dose: 1,000 mg Behavioural Document 11/30/17 00:43 TTC (Rec: 11/30/17 00:43 TTC [place] [id number]) Maintenance Maintenance Dose Yes Re-Assess: Reassess Psych Meds Document 11/30/17 01:43 TTC (Rec: 11/30/17 07:17 TTC [id number]) Reassess Psych Med Effective Sodium Chloride (Sodium Chloride 0.9%) 1,000 mls @ 999 mls/hr IV .Q1H1M STA Stop: 11/29/17 19:48 Last Admin: 11/29/17 19:06 Dose: 999 mls/hr eMAR Start Stop Document 11/29/17 19:06 SRE (Rec: 11/29/17 19:06 SRE [id number]) Intravenous Solution Start Date 11/29/17 Start Time 19:06 End Date 11/29/17 End time 20:05 Total Infusion Time 59 Ketorolac Tromethamine (Toradol) 30 mg IVP STAT STA Stop: 11/29/17 18:49 Last Admin: 11/29/17 19:07 Dose: 30 mg MAR Pain Assessment Document 11/29/17 19:07 SRE (Rec: 11/29/17 19:07 SRE [id number]) Pain Reassessment Is this a pain reassessment? Yes Sleep Is patient sleeping during reassessment? No Presence of Pain Presence of Pain Yes Pain Scale Used Pain Scale Used Numeric Location Pain Location Body Site Chest Description Description Intermittent IVP Administration Document 11/29/17 19:07 SRE (Rec: 11/29/17 19:07 SRE [id number]) Charges for Administration # of IVP Administrations 1 Non-Formulary Medication (Enalapril Maleate [Vasotec]) 1 tab PO DAILY [facility] Oxycodone/Acetaminophen (Percocet 5/325 Mg Tab) 1 tab PO STAT STA Stop: 11/30/17 00:24 Last Admin: 11/30/17 00:43 Dose: 1 tab MAR Pain Assessment Document 11/30/17 00:43 TTC (Rec: 11/30/17 00:43 TTC [place] [id number]) Pain Reassessment Is this a pain reassessment? No Re-Assess: MAR Pain Assessment Document 11/30/17 01:43 TTC (Rec: 11/30/17 07:17 TTC [id number]) Pain Reassessment Is this a pain reassessment? Yes Sleep Is patient sleeping during reassessment? No Presence of Pain Presence of Pain No Pneumococcal Polyvalent Vaccine (Pneumovax 23 Vaccine) 0.5 ml IM .ONCE ONE Stop: 11/29/17 21:34 Disposition/Present on Arrival - Present on Arrival Any Indicators Present on Arrival: No History of DVT/PE: No History of Uncontrolled Diabetes: No Urinary Catheter: No History of Decub. Ulcer: No History Surgical Site Infection Following: None - Disposition Have Diagnosis and Disposition been Completed?: Yes Diagnosis: Chest pain Disposition: HOSPITALIZED Disposition Time: 19:38 Patient Plan: Admission, Observation Patient Problems: Current Active Problems Problem Status Onset Chest pain Acute Condition: STABLE
[2017-11-29 19:22] LABS: ALB/GLOB RATIO 1.3 (1.1-1.8); ALBUMIN 3.9 g/dL (3.0-4.8); ALT/SGPT 22 U/L (7-56); AST/SGOT 15 U/L (14-36); BLOOD UREA NITROGEN 14 mg/dL (7-21); CALCIUM 9.4 mg/dL (8.4-10.5); GFR AFRICAN-AMERICAN > 60; GFR NON-AFRICAN AMERICAN > 60
[2017-11-29 19:25] LABS: BASO # 0.02 K/mm3 (0.0-2.0); BASO % 0.4 % (0.0-3.0); EOS # 0.1 (0.0-0.7); EOS % 1.3 % (1.5-5.0); GRAN # 3.24 (1.4-6.5); GRAN % 58.1 % (50.0-68.0); LYMPH % 35.4 % (22.0-35.0); MEAN CELL VOLUME 85.1 fl (80.0-105.0); MEAN CORPUSCULAR HEMOGLOBIN 29.4 pg (25.0-35.0); MEAN CORPUSCULAR HGB CONC 34.6 g/dl (31.0-37.0); MONO # 0.3 (0.1-0.6); MONO % 4.8 % (1.0-6.0); RBC 4.42 10^6/uL (3.5-6.1); RED CELL DISTRIBUTION WIDTH 13.1 % (11.5-14.5); WHITE BLOOD COUNT 5.6 10^3/ul (4.5-11.0)
[2017-11-29 19:26] LABS: INR 1.08 (0.93-1.08); PARTIAL THROMBOPLASTIN TIME 33.5 Seconds (25.1-36.5); PROTHROMBIN TIME 12.3 SECONDS (9.4-12.5)
[2017-11-29 19:34] LABS: TROPONIN I < 0.01 ng/mL
[2017-11-29] MEDS ORDERED: Aspirin 325 mg EC Tablets PO STA (19:46)
[2017-11-29] MEDS ORDERED: Albuterol 0.083% Inhal Sol (2.5 mg/3 mL) UD IH STA (19:58)
--- NOTE | 2017-11-29 20:15 | CARD ---
APPROVED REPORT Date of service: 11/29/2017 EKG Measurement Heart [id number] <Conclusion> Normal sinus rhythm Normal ECG
[2017-11-29 21:33] VITALS: BMI 42.4
[2017-11-29] MEDS ORDERED: Pneumococcal 23-Valent Vaccine IM ONE (21:33)
[2017-11-30] MEDS ORDERED: Oxycodone/Acetaminophen 5/325 mg Tab PO STA (00:23)
[2017-11-30] MEDS ORDERED: Divalproex 500 mg ER (ONCE DAILY formulation) PO STA (00:25)
[2017-11-30 03:00] VITALS: RESP 19
[2017-11-30 06:31] VITALS: TEMP 98.6; O2SAT 97
--- NOTE | 2017-11-30 09:25 | RAD ---
Date of service: 11/29/2017 HISTORY: pain COMPARISON: 06/30/2017 FINDINGS: LUNGS: No active pulmonary disease. PLEURA: No significant pleural effusion identified, no pneumothorax apparent. CARDIOVASCULAR: Normal. OSSEOUS STRUCTURES: No significant abnormalities. VISUALIZED UPPER ABDOMEN: Normal. OTHER FINDINGS: None. IMPRESSION: No active disease.
--- NOTE | 2017-11-30 09:52 | CON ---
DATE: 11/30/2017 HISTORY OF PRESENT ILLNESS: The patient is a 57-year-old woman who presents with pleuritic-like chest pain. The patient has had complaints of cough over the past couple days. Her symptoms of chest pain occur during her cough. Not exacerbated by exertion. The patient's past medical history includes hypertension and diabetes mellitus and history of depression. The patient underwent cardiac catheterization several years ago for similar symptoms in which her coronaries were unremarkable. SOCIAL HISTORY: The patient is an active smoker. REVIEW OF SYSTEMS: A 14-point review of systems is reviewed in detail. Other than her pleuritic-like chest pain during cough, there are no other symptoms. No other cardiac symptoms noted. PHYSICAL EXAMINATION: VITAL SIGNS: Stable. NECK: Negative JVD. LUNGS: Without rales. HEART: S1, S2. EXTREMITIES: Without edema. LABORATORY DATA: EKG is unremarkable. Troponin is negative x1. IMPRESSION: 1. Atypical chest pain. 2. Pleuritic-like chest pain exacerbated by cough. 3. Bronchitis. 4. Diabetes mellitus. 5. Hypertension. 6. No evidence for acute coronary syndrome. 7. Depression. 8. History of unremarkable coronary arteries on cardiac catheterization. Given these findings, we will obtain one more troponin today. If negative, no further cardiac workup is necessary. We will discontinue telemetry today. Aric Hicks MD
[2017-11-30] MEDS ORDERED: ENALAPRIL MALEATE PO SCH (10:00)
[2017-11-30 10:23] VITALS: BP 130/80; PULSE 76
--- NOTE | 2017-11-30 10:32 | DS ---
She is feeling much better this morning. No chest pain. No shortness of breath. No abdominal pain anymore. Also, she is hungry. We are still pending an ultrasound of the abdomen and pelvis. She is also on a liquid diet. PHYSICAL EXAMINATION: VITAL SIGNS: Temperature 98.6, 88 pulse, 129/78 blood pressure, 19 respiratory rate, 97% O2 sat on room air. HEENT: Head is atraumatic, normocephalic. HEART: Regular rate. LUNGS: Clear to auscultation. ABDOMEN: Completely soft, nontender. Positive bowel sounds. EXTREMITIES: No edema. NEUROLOGIC: She slept very well. MEDICATIONS: She is on Elavil, Toradol, Vasotec, Klonopin, Lasix. I am waiting for the ultrasound to come back and am waiting for a troponin to come back this morning. I am waiting for Cardiology to come to the chart. If all these things are negative, she will be discharged this afternoon. So, I put the discharge order in while awaiting these tests. This is a patient with chest pain and abdominal pain which has resolved. She will go back home on her regular medications if these tests are normal and okay with the general service technician. She is on observation. Darek Ramirez DO MTDD
--- NOTE | 2017-11-30 10:44 | US ---
Date of service: 11/29/2017 HISTORY: RUQ pain COMPARISON: None. TECHNIQUE: Sonographic evaluation of the right upper quadrant of the abdomen. FINDINGS: LIVER: Measures 16.12 x 11.09 cm in length. Increased echogenicity of the liver parenchyma. No mass. No intrahepatic bile duct dilatation. GALLBLADDER: Unremarkable. No gallstones. COMMON BILE DUCT: Measures 4 mm. No stones. No dilatation. PANCREAS: Unremarkable as visualized. No mass. No ductal dilatation. RIGHT KIDNEY: Measures 10.34 x 4.42 x 5.89 cm in length. Normal echogenicity. No calculus, mass, or hydronephrosis. AORTA: No aneurysmal dilatation. IVC: Unremarkable. OTHER FINDINGS: None . IMPRESSION: No evidence of gallstones. Fatty infiltration of the liver
--- NOTE | 2017-11-30 18:36 | HP ---
I saw her last night in the Emergency Room. I did an H&P, it did not populate, I am doing it again this morning for yesterday, 11/29/2017 at around 07:15 p.m. HISTORY OF PRESENT ILLNESS: She is a 57-year-old female, who I know very well, who is in the Emergency Room with right-sided abdominal pain and chest pain, and she is uncomfortable at this time. There is less pain in the chest, did not have any pressure appreciated 3 to 4 days with dry cough. PAST MEDICAL HISTORY: She has a past medical history of CAD, hypertension, schizophrenia, diverticulitis, colitis, diabetes. She had intermittent bilateral lower extremity cellulitis in the past. She has had bronchitis. She had pneumonias in the past, migraine history, diabetes, cellulitis of the lower extremities in the past, arthritis, back pain. No falls. She has diverticulitis history, reflux history, colitis history, anxiety, bipolar, depression, panic disorder, schizophrenia. She has had colonoscopies and endoscopies. FAMILY HISTORY: There is hypertension in the family. SOCIAL HISTORY: She still smokes cigarettes. No alcohol. No drugs. ALLERGIES: SHE IS ALLERGIC TO PENICILLIN AND BIAXIN. MEDICATIONS: She takes Abilify, Elavil, Depakote, Vasotec, Lasix, Klonopin. She is very tired and has fevers, but no night sweats. She had chills, runny nose. She has a cough. No sputum or shortness of breath. There is chest pain, left sided, but no pressure, no palpitations or edema. There is abdominal pain on the right upper area above the gallbladder, but no constipation, diarrhea, nausea, or vomiting. No problems urinating. No muscle issues. No rashes of the skin, not anxious, not depressed at this time. OBJECTIVE: VITAL SIGNS: Temperature 98.8, pulse 93, respiratory rate 18, blood pressure 145/81, O2 sat on room air 98%. GENERAL: She is well appearing. Even though she has right upper quadrant pain, she is doing okay. The left chest pain is not so bad at this time. HEENT: Head is atraumatic, normocephalic. Mouth is moist. Extraocular muscles are intact. NECK: Thyroid midline. No palpable appreciable lymphadenopathy. HEART: Regular rate. LUNGS: Decreased breath sounds, but clear to auscultation. No wheezes, no rhonchi, no rales. ABDOMEN: Soft, nontender. Positive bowel sounds. No guarding. No rebound or CVA tenderness even over the right upper quadrant area. NEUROLOGIC: GCS is 15. Cranial nerves II through XII grossly intact. Speech is normal. Alert and oriented x3. SKIN: Warm and dry. DATA: She has a 5.6 white count, 13 hemoglobin, 37.6 hematocrit, 183 platelets. She has a 140 sodium, potassium is 4, chloride 100, carbon dioxide 29, anion gap of 15, BUN 14, creatinine 0.9, GFR is greater than 60, sugar is 197, calcium is 9.4, total bili is 0.4, AST is 15, ALT is 22, alkaline phosphatase 57. Lactate dehydrogenase is 295. Total creatinine kinase is 28, troponin I is 0.01. She should have troponins the next day. Total protein is 6.9. INR is 1.08. She has an ultrasound of the abdomen that was ordered, we will hopefully get the results soon. She has a consult with Dr. Hicks, the instrumentation instructor. She will be on her medications. We will check her labs. She will be on diet. If she does well, hopefully, we can possibly discharge her tomorrow. This is a patient with abdominal pain and chest pain, on observation status. Darek Ramirez DO MTDD
== END 2017-11-30 12:42 | disposition home or self-care (01) ==
LOC: ED 18:12 → ERH 19:38 → 2RSO 22:19
PROVIDERS: ADMIT Family Medicine; ATTEND Family Medicine
DX: R07.89 Other chest pain (principal); R10.9 Unspecified abdominal pain; I10 Essential (primary) hypertension; E11.9 Type 2 diabetes mellitus without complications; F31.9 Bipolar disorder, unspecified; F20.9 Schizophrenia, unspecified; F41.0 Panic disorder [episodic paroxysmal anxiety]; I25.10 Atherosclerotic heart disease of native coronary artery without angina pectoris; K21.9 Gastro-esophageal reflux disease without esophagitis; F17.210 Nicotine dependence, cigarettes, uncomplicated; M19.90 Unspecified osteoarthritis, unspecified site; G43.909 Migraine, unspecified, not intractable, without status migrainosus; J40 Bronchitis, not specified as acute or chronic; K76.0 Fatty (change of) liver, not elsewhere classified; Z79.4 Long term (current) use of insulin; Z87.01 Personal history of pneumonia (recurrent); Z87.440 Personal history of urinary (tract) infections; Z88.0 Allergy status to penicillin
CPT/HCPCS: 36415; 71045; 76705; 80053; 82150; 82550; 82948; 83615; 84484; 85025; 85610; 85730; 87040; 93005; 96361; 96374; 96376; 99285; G0378; J1885; J7030

== ENCOUNTER 2017-12-16 13:32 | Emergency (ER) | payer MEDICAID ==
[2017-12-16 13:50] VITALS: BMI 42.0
[2017-12-16] MEDS ORDERED: DiphenhydrAMINE 50 mg/ml Inj IVP STA (14:06)
--- NOTE | 2017-12-16 14:16 | ED PDOC ---
Arrival/HPI - General Chief Complaint: Lower Extremity Problem/Injury Time Seen by Provider: 12/16/17 13:56 Historian: Patient - History of Present Illness Narrative History of Present Illness (Text): 12/16/17 14:09 pt p/w + left leg redness/swelling/pain/itching x 1-2 days; pt states she felt something bite her 4-5 days ago on her lower left leg and since then felt swelling/pain/itching; pt noted the redness yesterday and went to [facility] urgent [facility] [place] and received keflex/pain medications and was instructed to continue monitoring, if worsens to return to ED; pt felt the redness is worse and is tracking upwards to her knee; pt states no other new complaints; pt states no fever/chills/sweats, no cp/sob/palpitations, no abd pain, no n/v, no numbness/tingling, no urinary/bowel changes, no fall/trauma/ sick contact, no travel; pt denied other complaints; pt is here for further eval. PCP: DR Gill Ramirez Time/Duration: < week Symptom Onset: Gradual Symptom Course: Worsening Severity Level: 8, Severe Activities at Onset: Rest Context: Home Past Medical History - Provider Review Nursing Documentation Reviewed: Yes - Travel History Have you recently traveled outside [place] w/in the past 3 mons?: No - Past History Past History: Non-Contributing - Infectious Disease Hx of Infectious Diseases: None - Tetanus Immunization Tetanus Immunization: Unknown - Reproductive Menopause: Yes Currently : No - Past Medical History Past Medical History: Non-Contributing - Cardiac Hx Cardiac Disorders: Yes Hx Hypertension: Yes - Pulmonary Hx Respiratory Disorders: Yes Hx Bronchitis: Yes Hx Chronic Obstructive Pulmonary Disease (COPD): No Hx Emphysema: No Hx Pneumonia: Yes Hx Respiratory Aspiration: No Hx Respiratory Tract Infection: No Hx Sleep Apnea: No Hx Tuberculosis: No - Neurological Hx Neurological Disorder: Yes Hx Migraine: Yes - HEENT Hx HEENT Disorder: No - Renal Hx Renal Disorder: No - Endocrine/Metabolic Hx Endocrine Disorders: Yes Hx Diabetes Mellitus Type 2: Yes - Hematological/Oncological Hx Blood Disorders: No - Integumentary Hx Dermatological Disorder: Yes Other/Comment: cellulitis to the lower extremities since 08/23 - Musculoskeletal/Rheumatological Hx Musculoskeletal Disorders: Yes Hx Arthritis: Yes Hx Back Pain: Yes Hx Falls: No - Gastrointestinal Hx Gastrointestinal Disorders: Yes Hx Diverticulitis: Yes Hx Gastroesophageal Reflux: Yes Other/Comment: colitis - Genitourinary/Gynecological Hx Genitourinary Disorders: Yes Hx Urinary Tract Infection: Yes - Psychiatric Hx Anxiety: Yes Hx Bipolar Disorder: Yes Hx Depression: Yes Hx Emotional Abuse: No Hx Panic Disorder: Yes Hx Physical Abuse: No Hx Schizophrenia: Yes Hx Substance Use: No - Past Surgical History Past Surgical History: Non-Contributing - Surgical History Hx Cardiac Catheterization: Yes Other/Comment: Colonoscopy. Endoscopy - Anesthesia Hx Anesthesia: Yes Hx Anesthesia Reactions: No Hx Malignant Hyperthermia: No - Suicidal Assessment Feels Threatened In Home Enviroment: No Family/Social History - Physician Review Nursing Documentation Reviewed: Yes Family/Social History: No Known Family HX Smoking Status: Heavy Smoker > 10 Cigarettes Daily Hx Alcohol Use: No Hx Substance Use: No Hx Substance Use Treatment: No Allergies/Home Meds Allergies/Adverse Reactions: Allergies amoxicillin [From Augmentin] Allergy (Verified 12/16/17 13:50) NAUSEA clarithromycin [From Biaxin] Allergy (Verified 12/16/17 13:50) RASH clavulanic acid [From Augmentin] Allergy (Verified 12/16/17 13:50) NAUSEA Home Medications: Home Meds Medication Instructions Recorded Confirmed ARIPiprazole [Abilify] 1 tab PO DAILY 11/29/17 12/16/17 Amitriptyline [Elavil] 100 mg PO HS 11/29/17 12/16/17 Divalproex [Depakote ER] 1,000 mg PO HS 11/29/17 12/16/17 Enalapril Maleate [Vasotec] 1 tab PO DAILY 11/29/17 12/16/17 Furosemide [Lasix] 1 tab PO DAILY 11/29/17 12/16/17 Insulin NPH Hum/Reg Insulin Hm 0 ml SC ACBD 11/29/17 12/16/17 [Humulin 70/30 70 U/ml-30 U/ml 10 ml] clonazePAM [Klonopin] 1 tab PO TID 11/29/17 12/16/17 Review of Systems - Physician Review All systems were reviewed & negative as marked: Yes - Review of Systems Constitutional: Normal. absent: Fatigue, Fevers Eyes: Normal ENT: Normal Respiratory: Normal Cardiovascular: Normal Gastrointestinal: Normal. absent: Abdominal Pain, Nausea, Vomiting Genitourinary Female: Normal Musculoskeletal: Normal Skin: Rash, Pruritis, Cellulitis Neurological: Normal. absent: Headache Endocrine: Normal Hemo/Lymphatic: Normal Psychiatric: Normal Physical Exam - Physical Exam Narrative Physical Exam (Text): 12/16/17 1410 General: alert/awake, GCS = 15, oriented x 3, resting in bed, uncomfortable, cooperative, interactive; NAD Head: NC/AT EYE: PERRLA, EOMI, sclera anicteric, no nystagmus, no photophobia; visual field intact b/l Facial: WNL Oral: uvula/tongue are midline, no exudate/lesions, no drooling/stridor, no dysphonia; intact dentitions NECK: intact ROM, no midline tenderness, no nuchal rigidity, no meningeal signs ; no step off Chest: CTA b/l, no w/r/r; no tachypenia, no accessory muscle use noted Cardiac: +S1, +S2, no m/r/r, no tachycardia Abdominal: +BS, soft/nd/nt, well nourished/obese patient; no masses/rebound/ guarding/rigidity; no azevedo's sign, no mcburney's point tenderness Extremities: intact ROM, strength 5/5 grossly intact in all limbs, neurovasc intact b/l; + ambulatory; reflex +2/2; no pitting edema noted b/l, no gloria's sign b/l BACK: no step off, no midline tenderness, NO crepitus, no gross deformities noted; Intact ROM SKIN: cap refill < 1 sec, no ulcerations, no petechiae, no rashes; + left lower leg mild skin redness with scattered near circular rashes progressing up to left inner thigh, NON-tender/no fluctuance/no induration; no open wounds/ lacerations/lesions noted; no bullae/vesicles/pustules noted; NO Nikosky's sign NEURO: CNII-XII WNL, no facial asymmetries, no slurr speech, oriented x 3 NIH stroke scale ~ 0 Psych: normal insight, normal affect; follows command with ease Vital Signs Reviewed: Yes Vital Signs Temp Pulse Resp BP Pulse Ox 12/16/17 16:15 98.8 F 89 18 125/84 100 12/16/17 15:45 98.9 F 90 18 127/84 100 12/16/17 13:33 98.9 F 96 H 19 138/86 95 Temperature: Afebrile Blood Pressure: Normal Pulse: Regular Respiratory Rate: Normal Appearance: Positive for: Well-Appearing, Non-Toxic, Uncomfortable Pain Distress: None Mental Status: Positive for: Alert and Oriented X 3 - Systems Exam Head: Present: Atraumatic, Normocephalic Pupils: Present: PERRL Medical Decision Making ED Course and Treatment: 12/16/17 14:09 Impression: left leg pain i have consider all the differential diagnosis regarding pt's chief medical complaints/clinical findings, including but are not limited to: left leg pain A/P: left leg pain - labs - iv - duplex - supportive care - observe/reevaluation 12/16/17 15:[address] Ramirez, made aware of pt's medical complaints/concerns, and ED mgt/txt/dx, agrees with ED mgt/txt; states pt can be likely be discharged home with outpt follow up early next week. 1545 pt is doing well pt is resting in bed pt is able to ambulate with ease pt is not in any distress pt felt improved vital signs are stable pt is made aware of her medical results pt is encouraged wound care pt is encouraged continue hydration pt will f/u as directed pt will be discharged home Re-evaluation Time: 15:59 Reassessment Condition: Improving,but remains with symptoms - Lab Interpretations Lab Results: 12/16/17 14:20 12/16/17 14:20 Lab Results 12/16/17 15:39: pO2 61 H, VBG pH 7.39, VBG pCO2 54.0, VBG HCO3 32.7 H, VBG Total CO2 34.4 H, VBG O2 Sat (Calc) 93.9 H, VBG Base Excess 6.2 H, VBG Potassium 4.1, Glucose 115 H, Lactate 1.4, FiO2 21.0, Sodium 139.0, Chloride 105.0, Venous Blood Potassium 4.1 12/16/17 14:20: Urine Color Yellow, Urine Appearance Clear, Urine pH 7.0, Ur Specific [place] 1.015, Urine Protein Negative, Urine Glucose (UA) Negative, Urine Ketones Negative, Urine Blood Negative, Urine Nitrate Negative, Urine Bilirubin Negative, Urine Urobilinogen 0.2, Ur Leukocyte Esterase Small H, Urine RBC 0 - 2, Urine WBC 5 - 10, Ur Epithelial Cells 4 - 5, Urine Bacteria Mod 12/16/17 14:20: Sodium 141, Potassium 4.4, Chloride 101, Carbon Dioxide 31, Anion Gap 14, BUN 12, Creatinine 0.8, Est GFR ( Amer) > 60, Est GFR (Non- Af Amer) > 60, Random Glucose 131 H, Calcium 9.3, Total Bilirubin 0.3, AST 21, ALT 14, Alkaline Phosphatase 68, Total Protein 7.0, Albumin 4.1, Globulin 2.9, Albumin/Globulin Ratio 1.4 12/16/17 14:20: WBC 5.6, RBC 4.21, Hgb 12.5, Hct 36.1, MCV 85.7, MCH 29.7, MCHC 34.6, RDW 13.2, Plt Count 201, MPV 9.0, Gran % 56.4, Lymph % (Auto) 35.5 H, [place] % (Auto) 5.0, Eos % (Auto) 2.7, Baso % (Auto) 0.4, Gran # 3.19, Lymph # ( Auto) 2.0, [place] # (Auto) 0.3, Eos # (Auto) 0.2, Baso # (Auto) 0.02 I have reviewed the lab results: Yes Interpretation: All labs normal - RAD Interpretation Narrative RAD Interpretations (Text): 12/16/17 15:59 Prelim Duplex - NO DVT Extremity US reviewed by radiologist, shows: Report Date : 12/16/2017 16:01:00 Creator : Aric Morse MD Dictator : Aric Morse MD Spinning Frame Changer : Aric Morse MD FINDINGS: The visualized deep venous system of the left lower extremity is sonographically normal and compressible. Normal wave forms and augmentation are seen. There is no sonographic evidence for deep venous thrombosis in the visualized segments of the left lower extremity. IMPRESSION: 1. No sonographic evidence for deep venous thrombosis in the visualized segments of the left lower extremity. Radiology Orders: 12/16/17 14:07 DUPLEX LOWER EXTRM VEIN LEFT [US] Stat Foreign Exchange Student Coordinator: Radiologist - Medication Orders Current Medication Orders: Discontinued Medications Diphenhydramine HCl (Benadryl) 25 mg IVP STAT STA Stop: 12/16/17 14:07 Last Admin: 12/16/17 14:24 Dose: 25 mg IVP Administration Document 12/16/17 14:24 [place] (Rec: 12/16/17 14:24 [facility]) Charges for Administration # of IVP Administrations 1 Ketorolac Tromethamine (Toradol) 30 mg IVP STAT STA Stop: 12/16/17 14:08 Last Admin: 12/16/17 14:23 Dose: 30 mg MAR Pain Assessment Document 12/16/17 14:23 LA (Rec: 12/16/17 14:24 [facility]) Pain Reassessment Is this a pain reassessment? No Sleep Is patient sleeping during reassessment? No Presence of Pain Presence of Pain Yes Pain Scale Used Pain Scale Used Numeric Location Left, Right or Bilateral Left Pain Location Body Site Calf Leg Description Description Intermittent Intensity of Pain at present 10 Pain Behavior Facial Grimacing IVP Administration Document 12/16/17 14:23 LA (Rec: 12/16/17 14:24 [facility]) Charges for Administration # of IVP Administrations 1 Re-Assess: MAR Pain Assessment Document 12/16/17 15:23 LA (Rec: 12/16/17 16:03 [facility]) Pain Reassessment Is this a pain reassessment? Yes Sleep Is patient sleeping during reassessment? No Presence of Pain Presence of Pain Yes Pain Scale Used Pain Scale Used Numeric Location Left, Right or Bilateral Left Pain Location Body Site Leg Description Description Intermittent Intensity of Pain at present 5 Trimethoprim/Sulfamethoxazole (Bactrim Ds Tab) 1 tab PO STAT STA PRN Reason: Protocol Stop: 12/16/17 15:59 Last Admin: 12/16/17 16:06 Dose: 1 tab - Scribe Statement The provider has reviewed the documentation as recorded by the Scribe Meg Bustos All medical record entries made by the Scribe were at my direction and personally dictated by me. I have reviewed the chart and agree that the record accurately reflects my personal performance of the history, physical exam, medical decision making, and the department course for this patient. I have also personally directed, reviewed, and agree with the discharge instructions and disposition. Disposition/Present on Arrival - Present on Arrival Any Indicators Present on Arrival: No History of DVT/PE: No History of Uncontrolled Diabetes: No Urinary Catheter: No History of Decub. Ulcer: No History Surgical Site Infection Following: None - Disposition Have Diagnosis and Disposition been Completed?: Yes Diagnosis: Cellulitis, leg, Left leg pain, Skin pruritus Disposition: HOME/ ROUTINE Disposition Time: 16:01 Patient Plan: Discharge Condition: STABLE Discharge Instructions (ExitCare): Cellulitis (ED) Print Language: ICELANDIC Additional Instructions: Make sure to see your doctor in 1-2 days DRINK PLENTY OF FLUIDS take your medications as prescribed Keep your wounds clean and dry AVOID sunbathing RETURN TO ED IF worse pain, cant breath, persistent vomiting, high fever >101- 102 for hours, altered behavior, slurr speech, facial changes, focal weakness ( arm/leg or both), unable to urinate, heavy/persistent bleeding, passing out, chest pain, or other medical emergencies Prescriptions: DiphenhydrAMINE [Diphenhydramine HCl] 10 ml PO TID PRN #100 ml PRN Reason: Itching / Pruritus Sulfamethoxazole/Trimethoprim [Bactrim DS 800 mg-160 mg] 1 tab PO BID #13 tab Referrals: Darek Ramirez DO [Family Provider] - Follow up with primary [facility] [Outside] - Follow up with primary [facility] [Outside] - Follow up with primary [facility] [place] [place] [Outside] - Follow up with primary Forms: [employer] (Belarusian)
[2017-12-16 14:56] LABS: URINE BILIRUBIN NEGATIVE (NEGATIVE); URINE BLOOD NEGATIVE (NEGATIVE); URINE GLUCOSE (UA) NEGATIVE (NEGATIVE); URINE LEUKOCYTE ESTERASE SMALL Leu/uL (NEGATIVE); URINE PROTEIN NEGATIVE mg/dL (<30 mg/dL); URINE UROBILINOGEN 0.2 E.U./dL (<1 E.U./dL)
[2017-12-16 14:58] LABS: URINE APPEARANCE CLEAR (CLEAR); URINE COLOR YELLOW (YELLOW)
[2017-12-16 14:59] LABS: BASO # 0.02 K/mm3 (0.0-2.0); BASO % 0.4 % (0.0-3.0); EOS # 0.2 (0.0-0.7); EOS % 2.7 % (1.5-5.0); GRAN # 3.19 (1.4-6.5); GRAN % 56.4 % (50.0-68.0); HEMOGLOBIN 12.5 g/dL (12.0-16.0); LYMPH % 35.5 % (22.0-35.0); MEAN CELL VOLUME 85.7 fl (80.0-105.0); MEAN CORPUSCULAR HEMOGLOBIN 29.7 pg (25.0-35.0); MEAN CORPUSCULAR HGB CONC 34.6 g/dl (31.0-37.0); MONO # 0.3 (0.1-0.6); RBC 4.21 10^6/uL (3.5-6.1); RED CELL DISTRIBUTION WIDTH 13.2 % (11.5-14.5); WHITE BLOOD COUNT 5.6 10^3/ul (4.5-11.0)
[2017-12-16 15:06] LABS: URINE BACTERIA MOD (NEG); URINE RBC 0 - 2 /hpf (0-2)
[2017-12-16 15:37] LABS: ALB/GLOB RATIO 1.4 (1.1-1.8); ALBUMIN 4.1 g/dL (3.0-4.8); ALT/SGPT 14 U/L (7-56); AST/SGOT 21 U/L (14-36); BLOOD UREA NITROGEN 12 mg/dL (7-21); CALCIUM 9.3 mg/dL (8.4-10.5); GFR AFRICAN-AMERICAN > 60; GFR NON-AFRICAN AMERICAN > 60
[2017-12-16 15:46] VITALS: RESP 18; O2SAT 100
[2017-12-16 15:49] LABS: VENOUS BLOOD GAS BASE EXCESS 6.2 mmol/L (0.0-2.0); VENOUS BLOOD GAS PO2 61 mm/Hg (30-55); VENOUS BLOOD PH 7.39 (7.32-7.43)
[2017-12-16] MEDS ORDERED: Tmp-Smz 800 mg-160 mg DS Tab PO STA (15:58)
--- NOTE | 2017-12-16 16:02 | US ---
PROCEDURE: Left lower extremity venous US HISTORY: Leg pain and swelling. Evaluate for DVT. PHYSICIAN(S): Aric Nielsen MD. TECHNIQUE: Duplex sonography and color-flow Doppler with graded compression were used to evaluate the deep venous system of the left lower extremity. FINDINGS: The visualized deep venous system of the left lower extremity is sonographically normal and compressible. Normal wave forms and augmentation are seen. There is no sonographic evidence for deep venous thrombosis in the visualized segments of the left lower extremity. IMPRESSION: 1. No sonographic evidence for deep venous thrombosis in the visualized segments of the left lower extremity.
[2017-12-16 16:29] VITALS: BP 125/84; PULSE 89; TEMP 98.8
== END 2017-12-16 16:15 | disposition home or self-care (01) ==
LOC: ED 13:32
DX: M79.605 Pain in left leg (principal); L03.116 Cellulitis of left lower limb; L29.9 Pruritus, unspecified; I10 Essential (primary) hypertension; E11.9 Type 2 diabetes mellitus without complications; F17.210 Nicotine dependence, cigarettes, uncomplicated
CPT/HCPCS: 80053; 81001; 82803; 85025; 87086; 93971; 96374; 96375; 99284; J1200; J1885

== ENCOUNTER 2018-04-26 10:44 | Emergency (ER) | payer MEDICAID, MEDICARE ==
[2018-04-26 10:49] VITALS: BMI 43.9
[2018-04-26 10:52] VITALS: RESP 18; TEMP 97.9; O2SAT 99
--- NOTE | 2018-04-26 11:14 | ED PDOC ---
Arrival/HPI - General Chief Complaint: Lower Extremity Problem/Injury Time Seen by Provider: 04/26/18 10:50 Historian: Patient - History of Present Illness Time/Duration: Other (3-4 days) Symptom Onset: Gradual Symptom Course: Worsening Quality: Tightness, Other (itching) Severity Level: Moderate Activities at Onset: Rest Associated Symptoms (Text): 04/26/18 11:12 patient complains of a 3-4 day history of left lower extremity swelling and redness and itching. She has had similar episodes multiple times previously. No chest pain or dyspnea. No trauma. She is requesting Percocet. I discussed with her that we would treat her chronic issue with some Tylenol at this time and reevaluate her. Past Medical History - Past History Past History: Non-Contributing - Infectious Disease Hx of Infectious Diseases: None - Tetanus Immunization Tetanus Immunization: Unknown - Past Medical History Past Medical History: Non-Contributing - Cardiac Hx Cardiac Disorders: Yes Hx Hypertension: Yes - Pulmonary Hx Respiratory Disorders: Yes Hx Bronchitis: Yes Hx Chronic Obstructive Pulmonary Disease (COPD): No Hx Emphysema: No Hx Pneumonia: Yes Hx Respiratory Aspiration: No Hx Respiratory Tract Infection: No Hx Sleep Apnea: No Hx Tuberculosis: No - Neurological Hx Neurological Disorder: Yes Hx Migraine: Yes - HEENT Hx HEENT Disorder: No - Renal Hx Renal Disorder: No - Endocrine/Metabolic Hx Endocrine Disorders: Yes Hx Diabetes Mellitus Type 2: Yes - Hematological/Oncological Hx Blood Disorders: No - Integumentary Hx Dermatological Disorder: Yes Other/Comment: cellulitis to the lower extremities since 08/23 - Musculoskeletal/Rheumatological Hx Musculoskeletal Disorders: Yes Hx Arthritis: Yes Hx Back Pain: Yes Hx Falls: No - Gastrointestinal Hx Gastrointestinal Disorders: Yes Hx Diverticulitis: Yes Hx Gastroesophageal Reflux: Yes Other/Comment: colitis - Genitourinary/Gynecological Hx Genitourinary Disorders: Yes Hx Urinary Tract Infection: Yes - Psychiatric Hx Anxiety: Yes Hx Bipolar Disorder: Yes Hx Depression: Yes Hx Emotional Abuse: No Hx Panic Disorder: Yes Hx Physical Abuse: No Hx Schizophrenia: Yes Hx Substance Use: No - Past Surgical History Past Surgical History: Non-Contributing - Surgical History Hx Cardiac Catheterization: Yes Other/Comment: Colonoscopy. Endoscopy - Anesthesia Hx Anesthesia: Yes Hx Anesthesia Reactions: No Hx Malignant Hyperthermia: No - Suicidal Assessment Feels Threatened In Home Enviroment: No Family/Social History - Physician Review Nursing Documentation Reviewed: Yes Family/Social History: Unknown Family HX Smoking Status: Heavy Smoker > 10 Cigarettes Daily Hx Alcohol Use: No Hx Substance Use: No Hx Substance Use Treatment: No Allergies/Home Meds Allergies/Adverse Reactions: Allergies amoxicillin [From Augmentin] Allergy (Verified 12/16/17 13:50) NAUSEA clarithromycin [From Biaxin] Allergy (Verified 12/16/17 13:50) RASH clavulanic acid [From Augmentin] Allergy (Verified 12/16/17 13:50) NAUSEA Home Medications: Home Meds Medication Instructions Recorded Confirmed ARIPiprazole [Abilify] 1 tab PO DAILY 11/29/17 04/26/18 Amitriptyline [Elavil] 100 mg PO HS 11/29/17 04/26/18 Divalproex [Depakote ER] 1,000 mg PO HS 11/29/17 04/26/18 Enalapril Maleate [Vasotec] 1 tab PO DAILY 11/29/17 04/26/18 Furosemide [Lasix] 1 tab PO DAILY 11/29/17 04/26/18 Insulin NPH Hum/Reg Insulin Hm 0 ml SC ACBD 11/29/17 04/26/18 [Humulin 70/30 70 U/ml-30 U/ml 10 ml] clonazePAM [Klonopin] 1 tab PO TID 11/29/17 04/26/18 Review of Systems - Physician Review All systems were reviewed & negative as marked: Yes - Review of Systems Constitutional: absent: Fatigue, Fevers Respiratory: Normal Cardiovascular: Normal Gastrointestinal: Normal Genitourinary Female: Normal Skin: Rash, Pruritis, Other (swelling) Neurological: Normal Physical Exam Vital Signs Temp Pulse Resp BP Pulse Ox 04/26/18 10:52 97.9 F 65 18 90/60 L 99 Temperature: Afebrile Blood Pressure: Normal Pulse: Regular Respiratory Rate: Normal Appearance: Positive for: Well-Appearing, Non-Toxic, Uncomfortable Pain Distress: Mild Mental Status: Positive for: Alert and Oriented X 3 - Systems Exam Head: Present: Atraumatic, Normocephalic Pupils: Present: PERRL Extroacular Muscles: Present: EOMI Conjunctiva: Present: Normal Mouth: Present: Moist Mucous Membranes Respiratory/Chest: Present: Clear to Auscultation, Good Air Exchange, Decreased Breath Sounds. No: Respiratory Distress, Accessory Muscle Use Cardiovascular: Present: Regular Rate and Rhythm, Normal S1, S2. No: Murmurs Abdomen: No: Tenderness, Distention, Peritoneal Signs Lower Extremity: Present: Edema, CALF TENDERNESS, NORMAL PULSES, Normal ROM, Tenderness, Swelling, Erythema, Neurovascularly Intact, Other (left lower leg erythematous excoriated tender swollen with no warmth). No: Cyanosis, Deformity Neurological: Present: GCS=15, CN II-XII Intact, Speech Normal, Motor Func Grossly Intact Skin: Present: Warm, Dry, Normal Color, Other (as above). No: Rashes Psychiatric: Present: Alert, Oriented x 3, Normal Insight, Normal Concentration Medical Decision Making ED Course and Treatment: 04/26/18 12:19 venous Doppler as read by the radiologist is negative for DVT. Patient is requesting compression stockings. These have been ordered. I'm not convinced that this is actually cellulitis, though we will treat her with some Keflex, which she has taken before, and she will follow-up with . Follow-up in the ER as needed. - RAD Interpretation Radiology Orders: 04/26/18 11:09 DUPLEX LOWER EXTRM VEIN BILAT [US] Stat Disposition/Present on Arrival - Present on Arrival Any Indicators Present on Arrival: No History of DVT/PE: No History of Uncontrolled Diabetes: No Urinary Catheter: No History of Decub. Ulcer: No History Surgical Site Infection Following: None - Disposition Have Diagnosis and Disposition been Completed?: Yes Diagnosis: Cellulitis Disposition: HOME/ ROUTINE Disposition Time: 12:20 Patient Plan: Discharge Patient Problems: Current Active Problems Problem Status Onset Cellulitis Acute Condition: GOOD Discharge Instructions (ExitCare): Cellulitis (ED) Prescriptions: Cephalexin [cephalexin] 500 mg PO BID #20 cap Referrals: Zana Mancera MD [Family Provider] - Follow up with primary Forms: [employer] (Honduran)
[2018-04-26 11:41] LABS: BASO # 0.02 K/mm3 (0.0-2.0); BASO % 0.4 % (0.0-3.0); EOS # 0.1 (0.0-0.7); EOS % 2.6 % (1.5-5.0); GRAN # 2.34 (1.4-6.5); GRAN % 44.3 % (50.0-68.0); HEMOGLOBIN 13.3 g/dL (12.0-16.0); LYMPH # 2.5 (1.2-3.4); LYMPH % 47.4 % (22.0-35.0); MEAN CELL VOLUME 86.3 fl (80.0-105.0); MEAN CORPUSCULAR HEMOGLOBIN 29.4 pg (25.0-35.0); MEAN PLATELET VOLUME 9.3 fl (7.0-11.0); MONO # 0.3 (0.1-0.6); MONO % 5.3 % (1.0-6.0); RBC 4.53 10^6/uL (3.5-6.1); RED CELL DISTRIBUTION WIDTH 13.1 % (11.5-14.5); WHITE BLOOD COUNT 5.3 10^3/uL (4.5-11.0)
[2018-04-26 11:51] LABS: ALB/GLOB RATIO 1.2 (1.1-1.8); ALBUMIN 3.9 g/dL (3.0-4.8); ALT/SGPT 28 U/L (7-56); AST/SGOT 25 U/L (14-36); BLOOD UREA NITROGEN 18 mg/dL (7-21); CALCIUM 8.7 mg/dL (8.4-10.5); GFR NON-AFRICAN AMERICAN > 60; INR 0.98; PARTIAL THROMBOPLASTIN TIME 29.9 Seconds (25.1-36.5); PROTHROMBIN TIME 11.3 SECONDS (9.4-12.5)
[2018-04-26 13:05] VITALS: BP 102/68; PULSE 75
== END 2018-04-26 13:16 | disposition home or self-care (01) ==
LOC: ED 10:44
DX: L03.116 Cellulitis of left lower limb (principal); E11.9 Type 2 diabetes mellitus without complications; F17.210 Nicotine dependence, cigarettes, uncomplicated; F20.9 Schizophrenia, unspecified; I10 Essential (primary) hypertension

== ENCOUNTER 2018-06-25 18:17 | Observation (INO) | payer MEDICARE, OTHER ==
[2018-06-25 18:43] VITALS: BMI 46.8
--- NOTE | 2018-06-25 18:49 | ED PDOC ---
Arrival/HPI - General Chief Complaint: Chest Pain Historian: Patient - History of Present Illness Narrative History of Present Illness (Text): 06/25/18 18:41 57 y/o female, pmh including htn/dm/diverticulitis, allergic to penicillin/maroclides, c/o chest pain for couple days with no fall or trauma. Aching pain, aggravated by movement, radiating pain to the lt. upper extremity, no numbness or tingling, no headache or night sweat, no rash, no dizziness, no night sweat, no other medical or psychological complaints. Past Medical History - Provider Review Nursing Documentation Reviewed: Yes - Past History Past History: Non-Contributing - Infectious Disease Hx of Infectious Diseases: None - Tetanus Immunization Tetanus Immunization: Unknown - Past Medical History Past Medical History: Non-Contributing - Cardiac Hx Cardiac Disorders: Yes Hx Hypertension: Yes - Pulmonary Hx Respiratory Disorders: Yes Hx Bronchitis: Yes Hx Pneumonia: Yes - Neurological Hx Neurological Disorder: Yes Hx Migraine: Yes - HEENT Hx HEENT Disorder: No - Renal Hx Renal Disorder: No - Endocrine/Metabolic Hx Endocrine Disorders: Yes Hx Diabetes Mellitus Type 2: Yes - Hematological/Oncological Hx Blood Disorders: No - Integumentary Hx Dermatological Disorder: Yes Hx Cellulitis: Yes - Musculoskeletal/Rheumatological Hx Musculoskeletal Disorders: Yes Hx Arthritis: Yes Hx Back Pain: Yes - Gastrointestinal Hx Gastrointestinal Disorders: Yes Hx Colitis: Yes Hx Diverticulitis: Yes Hx Gastroesophageal Reflux: Yes - Genitourinary/Gynecological Hx Genitourinary Disorders: Yes Hx Urinary Tract Infection: Yes - Psychiatric Hx Psychophysiologic Disorder: Yes Hx Anxiety: Yes Hx Bipolar Disorder: Yes Hx Depression: Yes Hx Emotional Abuse: No Hx Panic Disorder: Yes Hx Physical Abuse: No Hx Schizophrenia: Yes Hx Substance Use: No - Past Surgical History Past Surgical History: Non-Contributing - Surgical History Hx Cardiac Catheterization: Yes Other/Comment: Colonoscopy. Endoscopy - Anesthesia Hx Anesthesia: Yes Hx Anesthesia Reactions: No Hx Malignant Hyperthermia: No - Suicidal Assessment Feels Threatened In Home Enviroment: No Family/Social History - Physician Review Nursing Documentation Reviewed: Yes Family/Social History: Unknown Family HX Smoking Status: Heavy Smoker > 10 Cigarettes Daily Hx Alcohol Use: No Hx Substance Use: No Hx Substance Use Treatment: No Allergies/Home Meds Allergies/Adverse Reactions: Allergies amoxicillin [From Augmentin] Allergy (Verified 06/25/18 18:32) NAUSEA clarithromycin [From Biaxin] Allergy (Verified 06/25/18 18:32) RASH clavulanic acid [From Augmentin] Allergy (Verified 06/25/18 18:32) NAUSEA Home Medications: Home Meds Medication Instructions Recorded Confirmed ARIPiprazole [Abilify] 1 tab PO DAILY 11/29/17 06/25/18 Amitriptyline [Elavil] 100 mg PO HS 11/29/17 06/25/18 Divalproex [Depakote ER] 1,000 mg PO HS 11/29/17 06/25/18 Enalapril Maleate [Vasotec] 1 tab PO DAILY 11/29/17 06/25/18 Furosemide [Lasix] 1 tab PO DAILY 11/29/17 06/25/18 Insulin NPH Hum/Reg Insulin Hm 0 ml SC ACBD 11/29/17 06/25/18 [Humulin 70/30 70 U/ml-30 U/ml 10 ml] clonazePAM [Klonopin] 1 tab PO TID 11/29/17 06/25/18 Review of Systems - Review of Systems Constitutional: absent: Fatigue, Fevers Eyes: absent: Vision Changes ENT: absent: Hearing Changes Respiratory: absent: SOB, Cough Cardiovascular: Chest Pain Gastrointestinal: absent: Abdominal Pain, Nausea, Vomiting Musculoskeletal: absent: Arthralgias, Back Pain Skin: absent: Rash, Pruritis Neurological: absent: Headache, Dizziness Psychiatric: absent: Anxiety, Depression Physical Exam Vital Signs Reviewed: Yes Vital Signs Temp Pulse Resp BP Pulse Ox 06/25/18 18:27 98.3 F 96 H 18 138/85 95 Temperature: Afebrile Blood Pressure: Normal Pulse: Regular Respiratory Rate: Normal Appearance: Positive for: Well-Appearing, Non-Toxic, Comfortable Pain Distress: Moderate Mental Status: Positive for: Alert and Oriented X 3 - Systems Exam Head: Present: Atraumatic, Normocephalic Pupils: Present: PERRL Extroacular Muscles: Present: EOMI Conjunctiva: Present: Normal Ears: Present: NORMAL TM, Normal Canal. No: Erythema Mouth: Present: Moist Mucous Membranes Pharnyx: No: ERYTHEMA, EXUDATE, TONSILS ENLARGED Nose (External): Present: Atraumatic. No: Abrasion, Contusion, Laceration Nose (Internal): Present: Normal Inspection, No Active Bleeding. No: Rhinorrhea, Septal Hematoma, Epistaxis Neck: Present: Normal Range of Motion, Trachea Midline. No: Meningeal Signs, MIDLINE TENDERNESS, Paraspinal Tenderness, Lymphadenopathy Respiratory/Chest: Present: Clear to Auscultation, Good Air Exchange. No: Respiratory Distress, Accessory Muscle Use Cardiovascular: Present: Regular Rate and Rhythm, Normal S1, S2. No: Murmurs Abdomen: No: Tenderness, Distention, Peritoneal Signs, Rebound, Guarding Back: Present: Normal Inspection Upper Extremity: Present: Normal Inspection, Normal ROM, NORMAL PULSES, Neurovascularly Intact, Capillary Refill < 2s. No: Cyanosis, Edema, Deformity Lower Extremity: Present: Normal Inspection, NORMAL PULSES, Normal ROM, Neurovascularly Intact, Capillary Refill < 2 s. No: Edema, Tenderness, Swelling, Deformity Neurological: Present: GCS=15, CN II-XII Intact, Speech Normal, Motor Func Grossly Intact, Gait Normal, Memory Normal Skin: Present: Warm, Dry, Normal Color. No: Rashes Psychiatric: Present: Alert, Oriented x 3, Normal Insight, Normal Concentration Medical Decision Making ED Course and Treatment: 06/25/18 18:50 -labs -ekg -cxr -IV morphine/aspirin/sublingal nitro -Observe and reassess 06/25/18 19:44 -EKG: NSR @ 97 BPM, no ST elevation or depression, no T wave inversion. -Chest xray: ER wet read: no acute changes compared with previous ekg. -Labs are non-significant -UA show no UTI. -Trop is negative for 1st set. -BNP is negative -HEART score moderate, needs admission with troponin serial trending. -I spoke to pmd dr. boucher, recommend to admit to hospitalist and agreed with serial trop trending 06/25/18 19:51 -I spoke to Dr. Forde, discussed about the case/labs/radiology results, agreed on the observation with serial troponin. 06/25/18 20:14 -Pt. request her usual dose of klonipin 1mg po, ordered - RAD Interpretation Magnesium Mill Operator: Radiologist - EKG Interpretation EKG Interpretation (Text): 06/25/18 18:53 -EKG: NSR @ 97 BPM, no ST elevation or depression, no T wave inversion. Interpreted by ED Physician: Yes Type: 12 lead EKG - PA / MIGRATION AGENT / Resident Statement MD/DO has reviewed & agrees with the documentation as recorded. Disposition/Present on Arrival - Present on Arrival Any Indicators Present on Arrival: No History of DVT/PE: No History of Uncontrolled Diabetes: Yes Urinary Catheter: No History of Decub. Ulcer: No History Surgical Site Infection Following: None - Disposition Have Diagnosis and Disposition been Completed?: Yes Diagnosis: Chest pain Disposition: HOSPITALIZED Disposition Time: 19:42 Patient Plan: Admission, Observation, Telemetry Patient Problems: Current Active Problems Problem Status Onset Chest pain Acute Condition: STABLE
[2018-06-25] MEDS ORDERED: Morphine 4 mg/ml ISec IVP STA (18:53)
[2018-06-25 19:06] LABS: BASO # 0.02 K/mm3 (0.0-2.0); BASO % 0.4 % (0.0-3.0); EOS % 0.5 % (1.5-5.0); LYMPH # 1.3 (1.2-3.4); LYMPH % 22.6 % (22.0-35.0); MEAN CORPUSCULAR HEMOGLOBIN 29.4 pg (25.0-35.0); MEAN CORPUSCULAR HGB CONC 33.4 g/dl (31.0-37.0); MEAN PLATELET VOLUME 9.4 fl (7.0-11.0); MONO # 0.3 (0.1-0.6); RBC 4.76 10^6/uL (3.5-6.1); RED CELL DISTRIBUTION WIDTH 12.9 % (11.5-14.5); WHITE BLOOD COUNT 5.7 10^3/uL (4.5-11.0)
[2018-06-25 19:14] LABS: ALB/GLOB RATIO 1.3 (1.1-1.8); ALBUMIN 4.1 g/dL (3.0-4.8); ALT/SGPT 11 U/L (7-56); AST/SGOT 14 U/L (14-36); BLOOD UREA NITROGEN 8 mg/dL (7-21); CALCIUM 9.3 mg/dL (8.4-10.5); GFR NON-AFRICAN AMERICAN > 60; LIPASE 43 U/L (23-300)
[2018-06-25 19:25] LABS: B-TYPE NATRIURETIC PEPTIDE 108 pg/mL (0-450); TROPONIN I < 0.01 ng/mL
--- NOTE | 2018-06-25 20:19 | CP.PCM.HP ---
<Franck Beltre - Last Filed: 06/25/18 21:38> History of Present Illness - History of Present Illness History of Present Illness: Resident History & Physical for Hospitalist Service Patient is a 57 year old female with past medical history of HTN, CAD s/p cardiac cath, T2DM, obesity, diverticulitis, schizoaffective disorder presenting with chief complaint of intermittent chest pain that began two days ago. Patient states she was walking when the pain first started. Chest pain is located in left anterior chest wall and described as a pressure like sensation that r adiates down the left arm and to her back. Symptoms are aggravated with movement. Denies headache, dizziness, fevers, chills, nausea, vomiting, abdominal pain, dysuria. PMH: HTN, CAD, T2DM, obesity, diverticulitis, schizoaffective disorder PSH: cardiac cath SHx: 30 year smoking history, denies alcohol and illicit drugs Allergies: amoxicillin, clarithromycin, clavulanic acid PMD: Dr. Mancera Present on Admission - Present on Admission Any Indicators Present on Admission: No Review of Systems - Review of Systems All systems: reviewed and no additional remarkable complaints except (as stated in HPI) Past Patient History - Infectious Disease Hx of Infectious Diseases: None - Tetanus Immunizations Tetanus Immunization: Unknown - Past Medical History & Family History Past Medical History?: Yes - Past Social History Smoking Status: Heavy Smoker > 10 Cigarettes Daily - CARDIAC Hx Cardiac Disorders: Yes Hx Hypertension: Yes - PULMONARY Hx Respiratory Disorders: Yes Hx Bronchitis: Yes Hx Pneumonia: Yes - NEUROLOGICAL Hx Neurological Disorder: Yes Hx Migraine: Yes - HEENT Hx HEENT Problems: No - RENAL Hx Chronic Kidney Disease: No - ENDOCRINE/METABOLIC Hx Endocrine Disorders: Yes Hx Diabetes Mellitus Type 2: Yes - HEMATOLOGICAL/ONCOLOGICAL Hx Blood Disorders: No - INTEGUMENTARY Hx Dermatological Problems: Yes Hx Cellulitis: Yes - MUSCULOSKELETAL/RHEUMATOLOGICAL Hx Musculoskeletal Disorders: Yes Hx Arthritis: Yes Hx Back Pain: Yes - GASTROINTESTINAL Hx Gastrointestinal Disorders: Yes Hx Colitis: Yes Hx Diverticulitis: Yes Hx Gastroesophageal Reflux: Yes - GENITOURINARY/GYNECOLOGICAL Hx Genitourinary Disorders: Yes Hx Urinary Tract Infection: Yes - PSYCHIATRIC Hx Psychophysiologic Disorder: Yes Hx Anxiety: Yes Hx Bipolar Disorder: Yes Hx Depression: Yes Hx Emotional Abuse: No Hx Panic Symptoms: Yes Hx Physical Abuse: No Hx Schizophrenia: Yes Hx Substance Use: No - SURGICAL HISTORY Hx Cardiac Catheterization: Yes Other/Comment: Colonoscopy. Endoscopy - ANESTHESIA Hx Anesthesia: Yes Hx Anesthesia Reactions: No Hx Malignant Hyperthermia: No Meds Allergies/Adverse Reactions: Allergies Allergy/AdvReac Type Severity Reaction Status Date / Time amoxicillin [From Augmentin] Allergy NAUSEA Verified 06/25/18 18:32 clarithromycin [From Biaxin] Allergy RASH Verified 06/25/18 18:32 clavulanic acid Allergy NAUSEA Verified 06/25/18 18:32 [From Augmentin] Physical Exam - Constitutional Appears: Non-toxic, No Acute Distress - Head Exam Head Exam: ATRAUMATIC, NORMOCEPHALIC - Eye Exam Eye Exam: EOMI, Normal appearance, PERRL - ENT Exam ENT Exam: Mucous Membranes Moist, Normal Exam - Neck Exam Neck exam: Positive for: Full Rom. Negative for: Lymphadenopathy, Tenderness - Respiratory Exam Respiratory Exam: Clear to Auscultation Bilateral, NORMAL BREATHING PATTERN. absent: Rales, Rhonchi, Wheezes - Cardiovascular Exam Cardiovascular Exam: RRR, +S1, +S2. absent: Tachycardia, Systolic Murmur - GI/Abdominal Exam GI & Abdominal Exam: Soft. absent: Distended, Firm, Guarding, Rebound, Rigid, Tenderness - Extremities Exam Extremities exam: Positive for: normal capillary refill, normal inspection, p edal pulses present. Negative for: tenderness - Neurological Exam Neurological exam: Alert, CN II-XII Intact, Oriented x3 - Psychiatric Exam Psychiatric exam: Flat Affect - Skin Skin Exam: Dry, Intact, Normal Color, Warm Results - Vital Signs Recent Vital Signs: Last Vital Signs Temp 98.3 F 06/25/18 18:27 Pulse 86 06/25/18 19:22 Resp 18 06/25/18 19:22 BP 135/78 06/25/18 19:22 Pulse Ox 96 06/25/18 19:22 - Labs Result Diagrams: 06/25/18 18:58 06/25/18 18:58 Labs: Laboratory Results - last 24 hr 06/25/18 06/25/18 18:58 18:58 WBC 5.7 RBC 4.76 Hgb 14.0 Hct 41.9 MCV 88.0 MCH 29.4 MCHC 33.4 RDW 12.9 Plt Count 172 MPV 9.4 Neut % (Auto) 70.5 H Lymph % (Auto) 22.6 [place] % (Auto) 6.0 Eos % (Auto) 0.5 L Baso % (Auto) 0.4 Lymph # (Auto) 1.3 [place] # (Auto) 0.3 Eos # (Auto) 0.0 Baso # (Auto) 0.02 Absolute Neuts (auto) 3.99 Sodium 136 Potassium 4.3 Chloride 102 Carbon Dioxide 28 Anion Gap 11 BUN 8 Creatinine 0.8 Est GFR ( Amer) > 60 Est GFR (Non-Af Amer) > 60 Random Glucose 272 H Calcium 9.3 Total Bilirubin 0.3 AST 14 D ALT 11 Alkaline Phosphatase 73 Lactate Dehydrogenase 367 Total Creatine Kinase 54 Troponin I < 0.01 NT-Pro-B Natriuret Pep 108 Total Protein 7.2 Albumin 4.1 Globulin 3.1 Albumin/Globulin Ratio 1.3 Lipase 43 Assessment & Plan - Assessment and Plan (Free Text) Assessment: Patient is a 57 year old female with past medical history of HTN, CAD s/p cardiac cath, T2DM, obesity, diverticulitis, schizoaffective disorder presenting with chief complaint of chest pain. Plan: Chest pain - troponin neg x1 - EKG shows NSR - CXR unremarkable - Aspirin, morphine, nitroglycerin given in ED - SCOOBY score 1 - Cardiology consulted. Appreciate recs. - Troponins Q6H - Hgba1c, TSH, lipid panel - Aspirin 81 mg PO daily - Oxygen NC HTN - continue home Lasix T2DM - continue home Insulin 40 units SC AC BD - ISS, Accuchecks Schizoaffective disorder - continue home Depakote, Abilify, Amitryptyline PPX - Lovenox Case discussed with Dr. Eula Beltre PGY-1 <Tom Forde - Last Filed: 06/25/18 23:35> Results - Vital Signs Recent Vital Signs: Last Vital Signs Temp 98.3 F 06/25/18 18:27 Pulse 91 H 06/25/18 20:42 Resp 18 06/25/18 20:42 BP 115/64 06/25/18 20:42 Pulse Ox 98 06/25/18 20:42 - Labs Result Diagrams: 06/25/18 18:58 06/25/18 18:58 Labs: Laboratory Results - last 24 hr 06/25/18 06/25/18 06/25/18 18:58 18:58 21:48 WBC 5.7 RBC 4.76 Hgb 14.0 Hct 41.9 MCV 88.0 MCH 29.4 MCHC 33.4 RDW 12.9 Plt Count 172 MPV 9.4 Neut % (Auto) 70.5 H Lymph % (Auto) 22.6 [place] % (Auto) 6.0 Eos % (Auto) 0.5 L Baso % (Auto) 0.4 Lymph # (Auto) 1.3 [place] # (Auto) 0.3 Eos # (Auto) 0.0 Baso # (Auto) 0.02 Absolute Neuts (auto) 3.99 Sodium 136 Potassium 4.3 Chloride 102 Carbon Dioxide 28 Anion Gap 11 BUN 8 Creatinine 0.8 Est GFR ( Amer) > 60 Est GFR (Non-Af Amer) > 60 Random Glucose 272 H Calcium 9.3 Total Bilirubin 0.3 AST 14 D ALT 11 Alkaline Phosphatase 73 Lactate Dehydrogenase 367 Total Creatine Kinase 54 Troponin I < 0.01 NT-Pro-B Natriuret Pep 108 Total Protein 7.2 Albumin 4.1 Globulin 3.1 Albumin/Globulin Ratio 1.3 Lipase 43 TSH 3rd Generation 2.31 Urine Color Urine Appearance Urine pH Ur Specific [place] Urine Protein Urine Glucose (UA) Urine Ketones Urine Blood Urine Nitrate Urine Bilirubin Urine Urobilinogen Ur Leukocyte Esterase 06/25/18 22:20 WBC RBC Hgb Hct MCV MCH MCHC RDW Plt Count MPV Neut % (Auto) Lymph % (Auto) [place] % (Auto) Eos % (Auto) Baso % (Auto) Lymph # (Auto) [place] # (Auto) Eos # (Auto) Baso # (Auto) Absolute Neuts (auto) Sodium Potassium Chloride Carbon Dioxide Anion Gap BUN Creatinine Est GFR ( Amer) Est GFR (Non-Af Amer) Random Glucose Calcium Total Bilirubin AST ALT Alkaline Phosphatase Lactate Dehydrogenase Total Creatine Kinase Troponin I NT-Pro-B Natriuret Pep Total Protein Albumin Globulin Albumin/Globulin Ratio Lipase TSH 3rd Generation Urine Color Yellow Urine Appearance Clear Urine pH 6.0 Ur Specific [place] 1.020 Urine Protein Negative Urine Glucose (UA) >=1000 Urine Ketones Negative Urine Blood Negative Urine Nitrate Negative Urine Bilirubin Negative Urine Urobilinogen 0.2 Ur Leukocyte Esterase Negative Attending/Attestation - Attestation I have personally seen and examined this patient.: Yes I have fully participated in the care of the patient.: Yes I have reviewed all pertinent clinical information: Yes Notes (Text): 06/25/18 23:31 Patient was seen when she was in the ER in bed # 17. Medical record was reviewed. Agree with history ,physical examination, assessment and plan except some inclu sions and exclusions. Gives history of anxiety, depression also, has right and left side chronic p ain for 2-3 years, states that she is allergic to biaxin, cardiac catheterization was done by 5 years ago, showed "cholesterol deposits".
[2018-06-25] MEDS ORDERED: Dextrose 50% SYRINGE Inj (50 ml) IV PRN (21:24)
[2018-06-25] MEDS ORDERED: Divalproex 500 mg ER (ONCE DAILY formulation) PO SCH (22:00)
[2018-06-25] MEDS: Insulin Reg-HIGH-Coverage SC SCH (22:05)
[2018-06-25 22:28] LABS: URINE BILIRUBIN NEGATIVE (NEGATIVE); URINE BLOOD NEGATIVE (NEGATIVE); URINE GLUCOSE (UA) >=1000 mg/dL (NEGATIVE); URINE LEUKOCYTE ESTERASE NEGATIVE Leu/uL (NEGATIVE); URINE PROTEIN NEGATIVE mg/dL (<30 mg/dL); URINE UROBILINOGEN 0.2 E.U./dL (<1 E.U./dL)
[2018-06-25 22:30] LABS: URINE APPEARANCE CLEAR (CLEAR); URINE COLOR YELLOW (YELLOW)
[2018-06-26] MEDS ORDERED: Oxycodone/Acetaminophen 5/325 mg Tab PO ONE (00:32)
[2018-06-26] MEDS ORDERED: Pantoprazole 40 mg EC Tab PO SCH (06:00)
[2018-06-26 06:56] VITALS: O2SAT 94
[2018-06-26 07:15] LABS: BASO # 0.02 K/mm3 (0.0-2.0); BASO % 0.4 % (0.0-3.0); EOS # 0.1 (0.0-0.7); EOS % 1.9 % (1.5-5.0); HEMOGLOBIN 14.1 g/dL (12.0-16.0); LYMPH # 2.4 (1.2-3.4); LYMPH % 45.6 % (22.0-35.0); MEAN CELL VOLUME 88.1 fl (80.0-105.0); MEAN CORPUSCULAR HGB CONC 32.9 g/dl (31.0-37.0); MEAN PLATELET VOLUME 9.3 fl (7.0-11.0); MONO # 0.5 (0.1-0.6); MONO % 8.8 % (1.0-6.0); RBC 4.87 10^6/uL (3.5-6.1); RED CELL DISTRIBUTION WIDTH 13.1 % (11.5-14.5); WHITE BLOOD COUNT 5.2 10^3/uL (4.5-11.0)
[2018-06-26 07:21] LABS: BLOOD UREA NITROGEN 8 mg/dL (7-21); CALCIUM 9.4 mg/dL (8.4-10.5); GFR NON-AFRICAN AMERICAN > 60; HDL CHOLESTEROL 41 mg/dL (29-60)
[2018-06-26 07:31] LABS: TROPONIN I < 0.01 ng/mL
[2018-06-26 07:34] LABS: LDL CHOLESTEROL 157 mg/dL (0-129)
[2018-06-26] MEDS ORDERED: Oxycodone/Acetaminophen 5/325 mg Tab PO STA ×2 (08:14→14:44)
[2018-06-26] MEDS: Insulin Reg-HIGH-Coverage SC SCH ×4 (09:12→18:51)
--- NOTE | 2018-06-26 09:23 | CARD ---
APPROVED REPORT Date of service: 06/25/2018 EKG Measurement Heart [id number] IN [id number] <Conclusion> Normal sinus rhythm Leftward axis Normal ECG
--- NOTE | 2018-06-26 09:59 | RAD ---
Date of service: 06/25/2018 HISTORY: medical clearance COMPARISON: 11/29/2017 FINDINGS: LUNGS: No active pulmonary disease. PLEURA: No significant pleural effusion identified, no pneumothorax apparent. CARDIOVASCULAR: No aortic atherosclerotic calcification present. Mild cardiomegaly no pulmonary vascular congestion. OSSEOUS STRUCTURES: No significant abnormalities. VISUALIZED UPPER ABDOMEN: Normal. OTHER FINDINGS: None. IMPRESSION: No active disease.
[2018-06-26] MEDS ORDERED: Enoxaparin 40 mg Syringe SC SCH (10:00)
[2018-06-26] MEDS: Insulin Human NPH/Reg 70/30 Vial(3 ml) SC SCH ×2 (11:14→18:52)
--- NOTE | 2018-06-26 15:13 | CARD ---
APPROVED REPORT Date of service: 06/26/2018 EXAM: Two-dimensional and M-mode echocardiogram with Doppler and color Doppler. INDICATION LV Function:SystolicDiastolic EVALUATE HEART DISEASE 2D DIMENSIONS Left Atrium (2D)4.1 (1.6-4.0cm)IVSd1.7 (0.7-1.1cm) LVDd2.6 (3.9-5.9cm)PWd1.4 (0.7-1.1cm) LVDs1.7 (2.5-4.0cm)FS (%) 36.3 % LVEF (%)68.1 (>50%) M-Mode DIMENSIONS Aortic Root2.50 (2.2-3.7cm)Aortic Cusp Exc.1.60 (1.5-2.0cm) Aortic Valve LVOT Peak Fzggqazi018.0cm/sLVOT VTI25.10cm Mitral Valve MV E Lcupbbrw05.9cm/sMV A Ksnmarcy092.0cm/sE/A ratio0.7 TDI E/Lateral E'0.0E/Medial E'0.0 Tricuspid Valve TR Peak [id number]/sRAP [id number] Peak Gr.9mmHg [id number] LEFT VENTRICLE The left ventricle is normal size. There is mild concentric left ventricular hypertrophy. The left ventricular function is normal. The left ventricular ejection fraction is within the normal range. There is normal LV segmental wall motion. Transmitral Doppler flow pattern is Grade I-abnormal relaxation pattern. RIGHT VENTRICLE The right ventricle is normal size. There is normal right ventricular wall thickness. The right ventricular systolic function is normal. ATRIA The left atrium is borderline dilated. The right atrium size is normal. AORTIC VALVE The aortic valve is mildly thickened. No aortic regurgitation is present. There is no aortic valvular stenosis. MITRAL VALVE The mitral valve is moderately thickened. There is no mitral valve regurgitation noted. There is no mitral valve stenosis. TRICUSPID VALVE The tricuspid valve is normal in structure. There is no tricuspid valve regurgitation noted. GREAT VESSELS The aortic root is normal in size. The IVC is normal in size and collapses >50% with inspiration. PERICARDIAL EFFUSION There is no pericardial effusion. <Conclusion> There is mild concentric left ventricular hypertrophy. The left ventricular function is normal. The left ventricular ejection fraction is within the normal range. There is normal LV segmental wall motion. Transmitral Doppler flow pattern is Grade I-abnormal relaxation pattern.
--- NOTE | 2018-06-26 17:08 | CP.PCM.DIS ---
<Christian Pickard - Last Filed: 06/26/18 17:01> Provider - Provider Date of Admission: 06/25/18 19:47 Attending physician: Pa Hutchison MD Primary care physician: Zana Boucher MD Consults: 06/25/18 21:21 Cardiology Consult Routine Comment: Consulting Provider: Sathish Aldana Consulting Physician: Sathish Aldana Reason for Consult: chest pain 06/26/18 02:09 Transition In Care/Readmission Reduction Routine Comment: Physician Instructions: Reason For Exam: chest pain Time Spent in preparation of Discharge (in minutes): 40 Diagnosis - Discharge Diagnosis (1) Chest pain, rule out acute myocardial infarction Status: Resolved (2) Chest pain Status: Resolved Hospital Course - Lab Results Lab Results: Most Recent Lab Values WBC 5.2 10^3/uL (4.5-11.0) 06/26/18 06:50 RBC 4.87 10^6/uL (3.5-6.1) 06/26/18 06:50 Hgb 14.1 g/dL (12.0-16.0) 06/26/18 06:50 Hct 42.9 % (36.0-48.0) 06/26/18 06:50 MCV 88.1 fl (80.0-105.0) 06/26/18 06:50 MCH 29.0 pg (25.0-35.0) 06/26/18 06:50 MCHC 32.9 g/dl (31.0-37.0) 06/26/18 06:50 RDW 13.1 % (11.5-14.5) 06/26/18 06:50 Plt Count 189 10^3/uL (120.0-450.0) 06/26/18 06:50 MPV 9.3 fl (7.0-11.0) 06/26/18 06:50 Neut % (Auto) 43.3 % (50.0-68.0) L 06/26/18 06:50 Lymph % (Auto) 45.6 % (22.0-35.0) H 06/26/18 06:50 [place] % (Auto) 8.8 % (1.0-6.0) H 06/26/18 06:50 Eos % (Auto) 1.9 % (1.5-5.0) 06/26/18 06:50 Baso % (Auto) 0.4 % (0.0-3.0) 06/26/18 06:50 Lymph # (Auto) 2.4 (1.2-3.4) 06/26/18 06:50 [place] # (Auto) 0.5 (0.1-0.6) 06/26/18 06:50 Eos # (Auto) 0.1 (0.0-0.7) 06/26/18 06:50 Baso # (Auto) 0.02 K/mm3 (0.0-2.0) 06/26/18 06:50 Absolute Neuts (auto) 2.25 (1.4-6.5) 06/26/18 06:50 Sodium 139 mmol/L (132-148) 06/26/18 06:50 Potassium 3.8 mmol/L (3.6-5.0) 06/26/18 06:50 Chloride 101 mmol/L (98-107) 06/26/18 06:50 Carbon Dioxide 31 mmol/L (21-33) 06/26/18 06:50 Anion Gap 10 (10-20) 06/26/18 06:50 BUN 8 mg/dL (7-21) 06/26/18 06:50 Creatinine 0.8 mg/dl (0.7-1.2) 06/26/18 06:50 Est GFR ( Amer) > 60 06/26/18 06:50 Est GFR (Non-Af Amer) > 60 06/26/18 06:50 POC Glucose (mg/dL) 134 mg/dL (65-110) H 06/26/18 16:33 Random Glucose 187 mg/dL (70-110) H 06/26/18 06:50 Hemoglobin A1c 8.4 % (4.2-6.5) H 06/25/18 21:48 Calcium 9.4 mg/dL (8.4-10.5) 06/26/18 06:50 Total Bilirubin 0.3 mg/dL (0.2-1.3) 06/25/18 18:58 AST 14 U/L (14-36) D 06/25/18 18:58 ALT 11 U/L (7-56) 06/25/18 18:58 Alkaline Phosphatase 73 U/L (38-126) 06/25/18 18:58 Lactate Dehydrogenase 367 U/L (333-699) 06/25/18 18:58 Total Creatine Kinase 54 U/L (35-230) 06/25/18 18:58 Troponin I < 0.01 ng/mL 06/26/18 06:50 NT-Pro-B Natriuret Pep 108 pg/mL (0-450) 06/25/18 18:58 Total Protein 7.2 g/dL (5.8-8.3) 06/25/18 18:58 Albumin 4.1 g/dL (3.0-4.8) 06/25/18 18:58 Globulin 3.1 gm/dL 06/25/18 18:58 Albumin/Globulin Ratio 1.3 (1.1-1.8) 06/25/18 18:58 Triglycerides 328 mg/dL (35-160) H 06/26/18 06:50 Cholesterol 247 mg/dL (130-200) H 06/26/18 06:50 LDL Cholesterol Direct 157 mg/dL (0-129) H 06/26/18 06:50 HDL Cholesterol 41 mg/dL (29-60) 06/26/18 06:50 Lipase 43 U/L (23-300) 06/25/18 18:58 TSH 3rd Generation 2.31 mIU/mL (0.46-4.68) 06/25/18 21:48 Urine Color Yellow (YELLOW) 06/25/18 22:20 Urine Appearance Clear (CLEAR) 06/25/18 22:20 Urine pH 6.0 (4.7-8.0) 06/25/18 22:20 Ur Specific [place] 1.020 (1.005-1.035) 06/25/18 22:20 Urine Protein Negative mg/dL (<30 mg/dL) 06/25/18 22:20 Urine Glucose (UA) >=1000 mg/dL (NEGATIVE) 06/25/18 22:20 Urine Ketones Negative mg/dL (NEGATIVE) 06/25/18 22:20 Urine Blood Negative (NEGATIVE) 06/25/18 22:20 Urine Nitrate Negative (NEGATIVE) 06/25/18 22:20 Urine Bilirubin Negative (NEGATIVE) 06/25/18 22:20 Urine Urobilinogen 0.2 E.U./dL (<1 E.U./dL) 06/25/18 22:20 Ur Leukocyte Esterase Negative Jordana/uL (NEGATIVE) 06/25/18 22:20 - Hospital Course Hospital Course: Christian Pickard DO, PGY-1 Hospitalist Discharge Summary for Dr. Hutchison On admission: Patient is a 57 year old female with PMH of HTN, CAD (s/p PTCA), DM2, obesity, diverticulitis, and schizoaffective disorder presented to [facility] ED complaining of intermittent chest pain that began 2 days prior to presentation. Patient stated she first felt the pain while she was walking. It was located in the left anterior chest wall and described as a pressure-like sensation that radiated down the left arm and to her back. Pain was worse with movement. She denied headache, dizziness, fevers, chills, nausea, vomiting, abdominal pain, and dysuria. Hospitalization course: Patient was given aspirin, morphine, and nitroglycerin in ED. Patient was admitted for ACS r/o given her high risk history. Cardiology was consulted. Troponins were negative x3. EKG revealed normal sinus rhythm and chest x-ray was unremarkable. TTE revealed a normal left ventricular function and ejection fraction. Hemoglobin A1C was 8.4. TSH was within normal range. Lipid panel revealed hyperlipidemia. Atorvastatin 40mg was started. Home medications for hypertension, type 2 diabetes mellitus, and sc hizoaffective disorder were continued. DVT prophylaxis with Lovenox was started. Patient complained of back pain during hospital course and thoracic spine x-ray was ordered. On morning of discharge, patient denied shortness of breath and chest pain. Patient complained of diffuse musculoskeletal pains. She was encouraged to follow up with her primary care physician and pain management. She was encouraged to continue PT, and that this would help her pain issues more than anything. Discharge plan was discussed with patient in detail. All questions were answered. Patient seen, examined, and discharge plan discussed with my attending Dr. Kianna Pickard D.O. IM Resident PGY-1 Discharge Exam - Head Exam Head Exam: ATRAUMATIC, NORMOCEPHALIC - Eye Exam Eye Exam: EOMI, PERRL - ENT Exam ENT Exam: Mucous Membranes Moist - Neck Exam Neck exam: Full Rom, Normal Inspection - Respiratory Exam Respiratory Exam: Clear to PA & Lateral, NORMAL BREATHING PATTERN, UNREMARKABLE. absent: Accessory Muscle Use, Rales, Rhonchi, Wheezes, Respiratory Distress - Cardiovascular Exam Cardiovascular Exam: REGULAR RHYTHM, RRR, +S1, +S2. absent: Diastolic murmur, Gallop, Rubs, Systolic Murmur - GI/Abdominal Exam GI & Abdominal Exam: Normal Bowel Sounds, Soft, Unremarkable. absent: Tenderness - Extremities Exam Extremities exam: full ROM, normal inspection - Back Exam Back exam: paraspinal tenderness, tenderness (tenderness to palpation R and L lower back), vertebral tenderness - Neurological Exam Neurological exam: Alert, Oriented x3 - Psychiatric Exam Psychiatric exam: Normal Affect, Normal Mood - Skin Skin Exam: Dry, Intact, Warm Discharge Plan - Follow Up Plan Condition: STABLE Disposition: HOME/ ROUTINE Instructions: Chest Pain That Is Not Caused by the Heart (DC), Heart Disease in Women (DC), Chest Pain (DC), Chest Pain (GEN) Additional Instructions: Please follow up with your primary medical doctor, Dr. Boucher, within 3-5 days of discharge. We have given you a script for a rolling walker and outpatient physical therapy. Please follow up with Dr. Boucher regarding how you may get additional physical therapy to help with your pain management. Please continue all of your home medications as previously prescribed. If your symptoms of chest pain return or worsen, please present to nearest ED. Referrals: Zana Boucher MD [Primary Care Provider] - <Pa Hutchison - Last Filed: 06/26/18 18:36> Provider - Provider Date of Admission: 06/25/18 19:47 Attending physician: Pa Hutchison MD Primary care physician: Zana Boucher MD Consults: 06/25/18 21:21 Cardiology Consult Routine Comment: Consulting Provider: Sathish Aldana Consulting Physician: Sathish Aldana Reason for Consult: chest pain 06/26/18 02:09 Transition In Care/Readmission Reduction Routine Comment: Physician Instructions: Reason For Exam: chest pain Hospital Course - Lab Results Lab Results: Most Recent Lab Values WBC 5.2 10^3/uL (4.5-11.0) 06/26/18 06:50 RBC 4.87 10^6/uL (3.5-6.1) 06/26/18 06:50 Hgb 14.1 g/dL (12.0-16.0) 06/26/18 06:50 Hct 42.9 % (36.0-48.0) 06/26/18 06:50 MCV 88.1 fl (80.0-105.0) 06/26/18 06:50 MCH 29.0 pg (25.0-35.0) 06/26/18 06:50 MCHC 32.9 g/dl (31.0-37.0) 06/26/18 06:50 RDW 13.1 % (11.5-14.5) 06/26/18 06:50 Plt Count 189 10^3/uL (120.0-450.0) 06/26/18 06:50 MPV 9.3 fl (7.0-11.0) 06/26/18 06:50 Neut % (Auto) 43.3 % (50.0-68.0) L 06/26/18 06:50 Lymph % (Auto) 45.6 % (22.0-35.0) H 06/26/18 06:50 [place] % (Auto) 8.8 % (1.0-6.0) H 06/26/18 06:50 Eos % (Auto) 1.9 % (1.5-5.0) 06/26/18 06:50 Baso % (Auto) 0.4 % (0.0-3.0) 06/26/18 06:50 Lymph # (Auto) 2.4 (1.2-3.4) 06/26/18 06:50 [place] # (Auto) 0.5 (0.1-0.6) 06/26/18 06:50 Eos # (Auto) 0.1 (0.0-0.7) 06/26/18 06:50 Baso # (Auto) 0.02 K/mm3 (0.0-2.0) 06/26/18 06:50 Absolute Neuts (auto) 2.25 (1.4-6.5) 06/26/18 06:50 Sodium 139 mmol/L (132-148) 06/26/18 06:50 Potassium 3.8 mmol/L (3.6-5.0) 06/26/18 06:50 Chloride 101 mmol/L (98-107) 06/26/18 06:50 Carbon Dioxide 31 mmol/L (21-33) 06/26/18 06:50 Anion Gap 10 (10-20) 06/26/18 06:50 BUN 8 mg/dL (7-21) 06/26/18 06:50 Creatinine 0.8 mg/dl (0.7-1.2) 06/26/18 06:50 Est GFR ( Amer) > 60 06/26/18 06:50 Est GFR (Non-Af Amer) > 60 06/26/18 06:50 POC Glucose (mg/dL) 134 mg/dL (65-110) H 06/26/18 16:33 Random Glucose 187 mg/dL (70-110) H 06/26/18 06:50 Hemoglobin A1c 8.4 % (4.2-6.5) H 06/25/18 21:48 Calcium 9.4 mg/dL (8.4-10.5) 06/26/18 06:50 Total Bilirubin 0.3 mg/dL (0.2-1.3) 06/25/18 18:58 AST 14 U/L (14-36) D 06/25/18 18:58 ALT 11 U/L (7-56) 06/25/18 18:58 Alkaline Phosphatase 73 U/L (38-126) 06/25/18 18:58 Lactate Dehydrogenase 367 U/L (333-699) 06/25/18 18:58 Total Creatine Kinase 54 U/L (35-230) 06/25/18 18:58 Troponin I < 0.01 ng/mL 06/26/18 06:50 NT-Pro-B Natriuret Pep 108 pg/mL (0-450) 06/25/18 18:58 Total Protein 7.2 g/dL (5.8-8.3) 06/25/18 18:58 Albumin 4.1 g/dL (3.0-4.8) 06/25/18 18:58 Globulin 3.1 gm/dL 06/25/18 18:58 Albumin/Globulin Ratio 1.3 (1.1-1.8) 06/25/18 18:58 Triglycerides 328 mg/dL (35-160) H 06/26/18 06:50 Cholesterol 247 mg/dL (130-200) H 06/26/18 06:50 LDL Cholesterol Direct 157 mg/dL (0-129) H 06/26/18 06:50 HDL Cholesterol 41 mg/dL (29-60) 06/26/18 06:50 Lipase 43 U/L (23-300) 06/25/18 18:58 TSH 3rd Generation 2.31 mIU/mL (0.46-4.68) 06/25/18 21:48 Urine Color Yellow (YELLOW) 06/25/18 22:20 Urine Appearance Clear (CLEAR) 06/25/18 22:20 Urine pH 6.0 (4.7-8.0) 06/25/18 22:20 Ur Specific [place] 1.020 (1.005-1.035) 06/25/18 22:20 Urine Protein Negative mg/dL (<30 mg/dL) 06/25/18 22:20 Urine Glucose (UA) >=1000 mg/dL (NEGATIVE) 06/25/18 22:20 Urine Ketones Negative mg/dL (NEGATIVE) 06/25/18 22:20 Urine Blood Negative (NEGATIVE) 06/25/18 22:20 Urine Nitrate Negative (NEGATIVE) 06/25/18 22:20 Urine Bilirubin Negative (NEGATIVE) 06/25/18 22:20 Urine Urobilinogen 0.2 E.U./dL (<1 E.U./dL) 06/25/18 22:20 Ur Leukocyte Esterase Negative Jordana/uL (NEGATIVE) 06/25/18 22:20 Attending/Attestation - Attestation I have personally seen and examined this patient.: Yes I have fully participated in the care of the patient.: Yes I have reviewed all pertinent clinical information, including history, physical exam and plan: Yes Notes (Text): 06/26/18 18:34 Attending note: Patient seen and examined with resident. Denies any chest pain. Complaining of back pain. Patient is a 57 year old female with PMH of HTN, CAD, DM2, obesity, diverticulitis, and schizoaffective disorder presented to [facility] ED complaining of intermittent chest pain that began 2 days prior to presentation. Admitted to telemetry and monitored closely. CE x 3 negative. cardiology evaluation appreciated. echo is normal. Back pain: chronic degenerative disc disease. PT evaluation appreciated. discharged home with PT and rolloin Max. Follow up with PMD DR. boucher.
--- NOTE | 2018-06-26 17:21 | RAD ---
Date of service: 06/26/2018 HISTORY: Chest and back pain. No history of recent/ related trauma provided COMPARISON: No prior. FINDINGS: BONES: Dextroscoliosis, moderate. DISC SPACES: Multilevel degenerative changes primarily disc space narrowing and non marginal osteophyte formation. SOFT TISSUES: Normal. OTHER FINDINGS: None. IMPRESSION: Dextroscoliosis/multilevel degenerative changes. No acute findings
[2018-06-26 18:38] VITALS: BP 134/76; PULSE 78; RESP 18; TEMP 98.8
--- NOTE | 2018-06-26 20:24 | CP.PCM.PN ---
<Josue Hardwick - Last Filed: 06/26/18 20:16> Subjective - Date & Time of Evaluation Date of Evaluation: 06/26/18 Time of Evaluation: 19:00 - Subjective Subjective: S - Paged about patient requesting psychiatrist after discharge O - Patient examined. Denies suicidal ideation and thoughts to harm others. However, she feels depressed now. This was not endorsed earlier in the day. She was discharged today however this complaint occurred afterwards. She requests to speak to a psychiatrist. A - ?Depression P - Patient explained that psychiatrist is not available overnight. She may make a plan at her outpatient mental health clinic. However patient said she will have trouble making an appointment at her health clinic. - Patient is still reluctant to leave the hospital. Endorsed to night team. Objective - Vital Signs/Intake and Output Vital Signs (last 24 hours): Temp Pulse Resp BP Pulse Ox 98.8 F 78 18 134/76 94 L 06/26/18 18:00 06/26/18 18:00 06/26/18 18:00 06/26/18 18:00 06/26/18 06:00 Intake and Output: 06/26/18 06/27/18 18:59 06:59 Intake Total 956 Balance 956 - Medications Medications: Current Medications Acetaminophen (Tylenol 325mg Tab) 650 mg PO Q6H PRN PRN Reason: Pain, moderate (4-7) Last Admin: 06/25/18 22:49 Dose: 650 mg Amitriptyline HCl (Elavil) 100 mg PO HS [facility] Last Admin: 06/25/18 22:50 Dose: 100 mg Aripiprazole (Abilify) 10 mg PO DAILY [facility]; Protocol Last Admin: 06/26/18 11:13 Dose: Not Given Aspirin (Ecotrin) 81 mg PO DAILY [facility] Last Admin: 06/26/18 11:12 Dose: 81 mg Atorvastatin Calcium (Lipitor) 40 mg PO DIN [facility] Last Admin: 06/26/18 18:51 Dose: 40 mg Clonazepam (Klonopin) 1 mg PO TID [facility]; Protocol Last Admin: 06/26/18 18:00 Dose: Not Given Dextrose (Dextrose 50% Inj) 0 ml IV STAT PRN; Protocol PRN Reason: Hypoglycemia Protocol Divalproex Sodium (Depakote Er(Once Daily)) 1,000 mg PO HS [facility]; Protocol Last Admin: 06/25/18 22:50 Dose: 1,000 mg Enoxaparin Sodium (Lovenox) 40 mg SC DAILY [facility]; Protocol Last Admin: 06/26/18 11:13 Dose: 40 mg Furosemide (Lasix) 40 mg PO DAILY [facility] Last Admin: 06/26/18 11:12 Dose: 40 mg Dextrose (Dextrose 5% In Water 1000 Ml) 1,000 mls @ 0 mls/hr IV .Q0M PRN; Protocol PRN Reason: Hypoglycemia Protocol Insulin Human Regular (Humulin R High) 0 units SC ACHS [facility]; Protocol Last Admin: 06/26/18 18:51 Dose: 2 u Lisinopril (Zestril) 10 mg PO DAILY [facility] Last Admin: 06/26/18 11:12 Dose: 10 mg Pantoprazole Sodium (Protonix Ec Tab) 40 mg PO 0600 [facility] Last Admin: 06/26/18 06:55 Dose: Not Given - Labs Labs: 06/26/18 06:50 06/26/18 06:50 <Rigoberto Sun - Last Filed: 06/26/18 20:44> Objective - Vital Signs/Intake and Output Vital Signs (last 24 hours): Temp Pulse Resp BP Pulse Ox 98.8 F 78 18 134/76 94 L 06/26/18 18:00 06/26/18 18:00 06/26/18 18:00 06/26/18 18:00 06/26/18 06:00 Intake and Output: 06/26/18 06/27/18 18:59 06:59 Intake Total 956 Balance 956 - Medications Medications: Current Medications Acetaminophen (Tylenol 325mg Tab) 650 mg PO Q6H PRN PRN Reason: Pain, moderate (4-7) Last Admin: 06/25/18 22:49 Dose: 650 mg Amitriptyline HCl (Elavil) 100 mg PO HS [facility] Last Admin: 06/25/18 22:50 Dose: 100 mg Aripiprazole (Abilify) 10 mg PO DAILY [facility]; Protocol Last Admin: 06/26/18 11:13 Dose: Not Given Aspirin (Ecotrin) 81 mg PO DAILY [facility] Last Admin: 06/26/18 11:12 Dose: 81 mg Atorvastatin Calcium (Lipitor) 40 mg PO DIN [facility] Last Admin: 06/26/18 18:51 Dose: 40 mg Clonazepam (Klonopin) 1 mg PO TID [facility]; Protocol Last Admin: 06/26/18 18:00 Dose: Not Given Dextrose (Dextrose 50% Inj) 0 ml IV STAT PRN; Protocol PRN Reason: Hypoglycemia Protocol Divalproex Sodium (Depakote Er(Once Daily)) 1,000 mg PO HS [facility]; Protocol Last Admin: 06/25/18 22:50 Dose: 1,000 mg Enoxaparin Sodium (Lovenox) 40 mg SC DAILY [facility]; Protocol Last Admin: 06/26/18 11:13 Dose: 40 mg Furosemide (Lasix) 40 mg PO DAILY [facility] Last Admin: 06/26/18 11:12 Dose: 40 mg Dextrose (Dextrose 5% In Water 1000 Ml) 1,000 mls @ 0 mls/hr IV .Q0M PRN; Protocol PRN Reason: Hypoglycemia Protocol Insulin Human Regular (Humulin R High) 0 units SC ACHS [facility]; Protocol Last Admin: 06/26/18 18:51 Dose: 2 u Lisinopril (Zestril) 10 mg PO DAILY [facility] Last Admin: 06/26/18 11:12 Dose: 10 mg Pantoprazole Sodium (Protonix Ec Tab) 40 mg PO 0600 [facility] Last Admin: 06/26/18 06:55 Dose: Not Given - Labs Labs: 06/26/18 06:50 06/26/18 06:50 Attending/Attestation - Attestation I have personally seen and examined this patient.: No I have fully participated in the care of the patient.: No I have reviewed all pertinent clinical information, including history, physical exam and plan: No
--- NOTE | 2018-06-26 23:40 | CARD ---
APPROVED REPORT Date of service: 06/26/2018 EKG Measurement Heart [id number] <Conclusion> Normal sinus rhythm Leftward axis Normal ECG
--- NOTE | 2018-06-27 00:36 | CON ---
DATE: 06/26/2018 REASON FOR CONSULTATION: Chest pain. HISTORY OF PRESENT ILLNESS: The patient is a 57-year-old morbidly obese female, who has a history of depression and bipolar disorder. The patient did initially prior described by the emergency room team as ache and pain, aggravated by movement with radiation to the left upper extremity. At the time of my evaluation, the patient was experiencing back pain at the lower part of the chest. The patient denied any diaphoresis and is not aware of any prior cardiac history. The patient denies any depression symptoms now or suicidal ideations. MEDICATIONS: Abilify 10 mg once a day, Depakote 1000 mg at bedtime, aspirin 81 mg once a day, Elavil 100 mg at bedtime, Lasix 20 mg once a day, Lipitor 40 mg once a day, Lovenox 40 mg subcutaneously once a day, and Zestril 10 mg once a day. PHYSICAL EXAMINATION: GENERAL: The patient is a middle-aged female, who does not appear to be in acute distress. VITAL SIGNS: Blood pressure 128/76, heart rate 92, temperature 98.4, and respirations 19. HEENT: Normocephalic. CHEST: Clear. HEART: S1 and S2. Regular. EXTREMITIES: Trace leg edema. LABORATORY DATA: Today's hemoglobin, hematocrit, white count, and platelet count are within normal limits. Today's SMA-7 is within normal limits except for glucose of 187. Two sets of troponins are negative. Triglycerides 128, total cholesterol 247, and HDL cholesterol 157. The three are elevated. EKG revealed sinus rhythm at a rate of 97. ASSESSMENT: 1. Chest pain, myocardial infarction is ruled out. 2. Rule out less likely possibility of pulmonary infarction. 3. Consider musculoskeletal pain. 4. Obesity. 5. Hyperlipidemia. RECOMMENDATIONS: Continue current aspirin 81 mg once a day, Elavil 100 mg at bedtime, Lasix 20 mg once a day, Lipitor 40 mg once a day, and Zestril 20 mg once a day. I will do an echocardiographic study and obtain thoracic spine x-ray. Sathish Aldana MD [facility] # [id number]
== END 2018-06-26 21:05 | disposition home or self-care (01) ==
LOC: ED 18:17 → ERH 19:47 → 2RSO 06-26 00:21
PROVIDERS: ADMIT Hospitalist; ATTEND Internal Medicine
DX: R07.89 Other chest pain (principal); E66.01 Morbid (severe) obesity due to excess calories; Z68.42 Body mass index [BMI] 45.0-49.9, adult; E11.9 Type 2 diabetes mellitus without complications; I10 Essential (primary) hypertension; I25.10 Atherosclerotic heart disease of native coronary artery without angina pectoris; F25.9 Schizoaffective disorder, unspecified; F31.9 Bipolar disorder, unspecified; G89.29 Other chronic pain; E78.5 Hyperlipidemia, unspecified; Z98.61 Coronary angioplasty status; Z87.891 Personal history of nicotine dependence; Z88.0 Allergy status to penicillin
CPT/HCPCS: 36415; 71045; 72070; 80048; 80053; 80061; 81003; 82550; 82948; 83036; 83615; 83690; 83880; 84443; 84484; 85025; 93005; 93306; 96372; 96374; 97161; 99285; G0378; G8978; G8979; J1650; J2270

== ENCOUNTER 2018-06-27 17:02 | Emergency (ER) | payer OTHER ==
[2018-06-27 17:03] VITALS: BMI 43.9
[2018-06-27 17:51] VITALS: BP 106/75; PULSE 97; RESP 18; TEMP 98.5; O2SAT 98
--- NOTE | 2018-06-27 19:56 | ED PDOC ---
Arrival/HPI - General Historian: Patient - History of Present Illness Narrative History of Present Illness (Text): 06/27/18 19:47 57 year old female with PMH of HTN, CAD (s/p PTCA), DM2, obesity, diverticulitis, and schizoaffective disorder presented to [facility] ED complaining of diffuse abdominal pain. Patient gave a complaint of lower extremity swelling during triage. In the presence of the attending physician she only states that she has chronic back pain and needs percocet. She did not call her PCP after being discharged yet. Patient was admitted to [facility] for chest pain work up which was negative and got discharged home yesterday. Patient stated that she wanted to stay more in the hospital because her chronic back pain but had to leave as her work-up was negative. Patient denied chest pain, palpitations headache, dizziness, focal neurological symptoms, Nausea, vomiting, diarrhea , change in bowel movement. Time/Duration: < week Symptom Onset: Gradual Symptom Course: Unchanged Severity Level: 8 Context: Sitting, Standing, Walking, Exertion <Claudy George - Last Filed: 06/27/18 20:03> <Harini Cason - Last Filed: 06/27/18 20:22> - General Chief Complaint: Lower Extremity Problem/Injury Time Seen by Provider: 06/27/18 19:19 Past Medical History - Provider Review Nursing Documentation Reviewed: Yes - Travel History Have you recently traveled outside [place] w/in the past 3 mons?: No - Past History Past History: Non-Contributing - Infectious Disease Hx of Infectious Diseases: None - Tetanus Immunization Tetanus Immunization: Unknown - Reproductive Menopause: Yes - Past Medical History Past Medical History: Non-Contributing - Cardiac Hx Cardiac Disorders: Yes (CAD, cardiac cath) Hx Hypertension: Yes - Pulmonary Hx Respiratory Disorders: Yes Hx Bronchitis: Yes Hx Pneumonia: Yes - Neurological Hx Neurological Disorder: Yes Hx Migraine: Yes - HEENT Hx HEENT Disorder: No - Renal Hx Renal Disorder: No - Endocrine/Metabolic Hx Endocrine Disorders: Yes Hx Diabetes Mellitus Type 2: Yes - Hematological/Oncological Hx Blood Disorders: No - Integumentary Hx Dermatological Disorder: Yes - Musculoskeletal/Rheumatological Hx Musculoskeletal Disorders: Yes Hx Arthritis: Yes Hx Back Pain: Yes Hx Falls: No - Gastrointestinal Hx Gastrointestinal Disorders: Yes Hx Diverticulitis: Yes Hx Gastroesophageal Reflux: Yes - Genitourinary/Gynecological Hx Genitourinary Disorders: Yes Hx Urinary Tract Infection: Yes - Psychiatric Hx Psychophysiologic Disorder: Yes Hx Anxiety: Yes Hx Bipolar Disorder: Yes Hx Depression: Yes Hx Emotional Abuse: No Hx Panic Disorder: Yes Hx Physical Abuse: No Hx Schizophrenia: Yes Hx Substance Use: No - Past Surgical History Past Surgical History: Non-Contributing - Surgical History Hx Cardiac Catheterization: Yes Other/Comment: Colonoscopy. Endoscopy - Anesthesia Hx Anesthesia: Yes Hx Anesthesia Reactions: No Hx Malignant Hyperthermia: No - Suicidal Assessment Feels Threatened In Home Enviroment: No <Claudy George - Last Filed: 06/27/18 20:03> Family/Social History - Physician Review Nursing Documentation Reviewed: Yes Smoking Status: Light Smoker < 10 Cigarettes Daily Hx Alcohol Use: No Hx Substance Use: No Hx Substance Use Treatment: No <Claudy George - Last Filed: 06/27/18 20:03> Allergies/Home Meds <Claudy George - Last Filed: 06/27/18 20:03> <Harini Cason - Last Filed: 06/27/18 20:22> Allergies/Adverse Reactions: Allergies amoxicillin [From Augmentin] Allergy (Verified 06/27/18 17:51) NAUSEA clarithromycin [From Biaxin] Allergy (Verified 06/27/18 17:51) RASH clavulanic acid [From Augmentin] Allergy (Verified 06/27/18 17:51) NAUSEA Home Medications: Home Meds Medication Instructions Recorded Confirmed ARIPiprazole [Abilify] 1 tab PO DAILY 11/29/17 06/25/18 Amitriptyline [Elavil] 100 mg PO HS 11/29/17 06/25/18 Divalproex [Depakote ER] 1,000 mg PO HS 11/29/17 06/25/18 Enalapril Maleate [Vasotec] 1 tab PO DAILY 11/29/17 06/25/18 Furosemide [Lasix] 1 tab PO DAILY 11/29/17 06/25/18 Insulin NPH Hum/Reg Insulin Hm 0 ml SC ACBD 11/29/17 06/25/18 [Humulin 70-30 Vial] clonazePAM [Klonopin] 1 tab PO TID 11/29/17 06/25/18 Percocet 5/325 mg Tab mg PO Q6H PRN 06/26/18 Tizanidine HCl [Zanaflex] 4 mg PO BID 06/26/18 06/26/18 Vistaril 2 PO HS 06/26/18 Review of Systems - Physician Review All systems were reviewed & negative as marked: Yes - Review of Systems Constitutional: Normal Eyes: Normal ENT: Normal Respiratory: Normal Cardiovascular: Normal Gastrointestinal: Normal Genitourinary Female: Normal Musculoskeletal: Back Pain Skin: Normal Neurological: Normal Endocrine: Normal Hemo/Lymphatic: Normal Psychiatric: Other (hears voices. no homicidal/suicidal ideation) <Claudy George - Last Filed: 06/27/18 20:03> Physical Exam Vital Signs Reviewed: Yes Vital Signs Temp Pulse Resp BP Pulse Ox 06/27/18 17:43 98.5 F 97 H 18 106/75 98 Temperature: Afebrile Blood Pressure: Normal Pulse: Regular Respiratory Rate: Normal Appearance: Positive for: Well-Appearing, Non-Toxic, Comfortable Pain Distress: Moderate Mental Status: Positive for: Alert and Oriented X 3 - Systems Exam Head: Present: Atraumatic, Normocephalic Pupils: Present: PERRL Extroacular Muscles: Present: EOMI Conjunctiva: Present: Normal Mouth: Present: Moist Mucous Membranes Nose (External): Present: Atraumatic Neck: Present: Normal Range of Motion Respiratory/Chest: Present: Clear to Auscultation, Good Air Exchange Cardiovascular: Present: Regular Rate and Rhythm, Normal S1, S2 Abdomen: Present: Normal Bowel Sounds, Other (obese). No: Tenderness Back: Present: Paraspinal Tenderness (lumber area) Upper Extremity: Present: Normal Inspection. No: Cyanosis, Edema Lower Extremity: Present: Normal Inspection. No: Swelling Neurological: Present: GCS=15, CN II-XII Intact, Speech Normal Skin: Present: Warm, Dry, Normal Color. No: Rashes Psychiatric: Present: Alert, Oriented x 3. No: Suicidal Ideation, Homicidal Ideation <Claudy George - Last Filed: 06/27/18 20:03> Vital Signs Temp Pulse Resp BP Pulse Ox 06/27/18 17:43 98.5 F 97 H 18 106/75 98 <Harini Cason - Last Filed: 06/27/18 20:22> Medical Decision Making ED Course and Treatment: 06/27/18 20:06 all medical records , lab, imaging studies reviewed. Patient was admitted to [facility] for chest pain work up that was negative and discharged home yesterday. Patient needs percocet for her chronic back pain. Physical exam is unremarkable. Patient is hemodynamically stable, afebrile, normotensive and in no acute dis tress. <Claudy George - Last Filed: 06/27/18 20:03> - Medication Orders Current Medication Orders: Discontinued Medications Ketorolac Tromethamine (Toradol) 30 mg IM STAT STA Stop: 06/27/18 20:03 <Harini Cason - Last Filed: 06/27/18 20:22> Disposition/Present on Arrival - Present on Arrival Any Indicators Present on Arrival: No History of DVT/PE: No History of Uncontrolled Diabetes: No Urinary Catheter: No History of Decub. Ulcer: No History Surgical Site Infection Following: None - Disposition Have Diagnosis and Disposition been Completed?: Yes Patient Plan: Discharge <Claudy George - Last Filed: 06/27/18 20:03> - Present on Arrival Any Indicators Present on Arrival: No History of DVT/PE: No History of Uncontrolled Diabetes: No Urinary Catheter: No History of Decub. Ulcer: No History Surgical Site Infection Following: None - Disposition Have Diagnosis and Disposition been Completed?: Yes Disposition Time: 20:21 Patient Plan: Discharge <Harini Cason - Last Filed: 06/27/18 20:22> - Disposition Diagnosis: Chronic back pain Disposition: HOME/ ROUTINE Patient Problems: Current Active Problems Problem Status Onset Back pain Acute Chronic back pain Acute Condition: STABLE Discharge Instructions (ExitCare): Chronic Pain (DC) Additional Instructions: Follow up with your primary care physician for chronic back pain management. Take pain medication as prescribed by your primary care doctor Referrals: Zana Mancera MD [Family Provider] - Follow up with primary Forms: [employer] (Bhutanese)
--- NOTE | 2018-06-28 16:14 | CARD ---
APPROVED REPORT Date of service: 06/27/2018 EKG Measurement Heart [id number] <Conclusion> Normal sinus rhythm Left axis deviation Abnormal ECG
== END 2018-06-27 20:46 | disposition home or self-care (01) ==
LOC: ED 17:02
DX: M54.9 Dorsalgia, unspecified (principal); G89.29 Other chronic pain; I10 Essential (primary) hypertension; I25.10 Atherosclerotic heart disease of native coronary artery without angina pectoris; F17.210 Nicotine dependence, cigarettes, uncomplicated
CPT/HCPCS: 93005; 96372; 99282; J1885

== ENCOUNTER 2018-06-30 15:35 | Inpatient (IN) | payer MEDICARE, OTHER | END 2018-07-17 15:24 | disposition home or self-care (01) | DRG 885 | LOC: PSYC 07-02 06:55 → ED 15:35 → ERH 20:26 → PSYC 21:27 | DX: F25.1 Schizoaffective disorder, depressive type (principal); N17.9 Acute kidney failure, unspecified; R45.851 Suicidal ideations; Z68.41 Body mass index [BMI] 40.0-44.9, adult; F31.9 Bipolar disorder, unspecified; F41.0 Panic disorder [episodic paroxysmal anxiety]; E86.0 Dehydration; Z79.4 Long term (current) use of insulin; E11.65 Type 2 diabetes mellitus with hyperglycemia; E66.01 Morbid (severe) obesity due to excess calories; E78.00 Pure hypercholesterolemia, unspecified; E78.5 Hyperlipidemia, unspecified; F17.210 Nicotine dependence, cigarettes, uncomplicated; G47.00 Insomnia, unspecified; G47.33 Obstructive sleep apnea (adult) (pediatric); G89.29 Other chronic pain; I10 Essential (primary) hypertension; I25.10 Atherosclerotic heart disease of native coronary artery without angina pectoris; J44.9 Chronic obstructive pulmonary disease, unspecified; K21.9 Gastro-esophageal reflux disease without esophagitis; K59.00 Constipation, unspecified; M17.0 Bilateral primary osteoarthritis of knee; N63.0 Unspecified lump in unspecified breast; Z79.82 Long term (current) use of aspirin; Z79.891 Long term (current) use of opiate analgesic; Z79.899 Other long term (current) drug therapy; Z80.3 Family history of malignant neoplasm of breast; Z80.8 Family history of malignant neoplasm of other organs or systems; Z87.01 Personal history of pneumonia (recurrent); Z87.440 Personal history of urinary (tract) infections; Z91.19 Patient's noncompliance with other medical treatment and regimen ==

== ENCOUNTER 2018-07-20 19:34 | Emergency (ER) | payer SELFPAY, OTHER, MEDICARE | END 2018-07-20 23:03 | disposition home or self-care (01) | LOC: ED 19:34 ==

== ENCOUNTER 2018-08-01 12:16 | Inpatient (IN) | payer MEDICARE, OTHER ==
[2018-08-01 12:16] VITALS: BMI 45.7
--- NOTE | 2018-08-01 14:24 | ED PDOC ---
Arrival/HPI - General Chief Complaint: Psychiatric Evaluation Historian: Patient - History of Present Illness Narrative History of Present Illness (Text): 08/01/18 14:25 57 year old female, whose past medical history is significant for diabetes Mellitus ( years), hypertension (years), and morbid obesity schizoaffective disorder presents to the emergency department for possible overdoes to fluoxetine. Patient reports she was put on fluoxetine by her psychiatrist and believes the dose is too high. She denies any suicidal ideation, homicidal ideation, heart palpitations, or any other complaints. Time/Duration: 24 hours Symptom Onset: Gradual Symptom Course: Unchanged Activities at Onset: Light Context: Home Past Medical History - Provider Review Nursing Documentation Reviewed: Yes - Past History Past History: Non-Contributing - Infectious Disease Hx of Infectious Diseases: None - Tetanus Immunization Tetanus Immunization: Unknown - Reproductive Menopause: Yes - Past Medical History Past Medical History: Non-Contributing - Cardiac Hx Hypertension: Yes - Pulmonary Hx Tuberculosis: No - Neurological HX Cerebrovascular Accident: No Hx Seizures: No - HEENT Hx HEENT Disorder: No - Renal Hx Renal Disorder: No - Endocrine/Metabolic Hx Endocrine Disorders: Yes Hx Diabetes Mellitus Type 2: Yes - Hematological/Oncological Hx Cancer: No - Integumentary Hx Dermatological Disorder: Yes - Musculoskeletal/Rheumatological Hx Musculoskeletal Disorders: Yes Hx Arthritis: Yes Hx Back Pain: Yes - Gastrointestinal Hx Gastrointestinal Disorders: Yes Hx Diverticulitis: Yes Hx Gastroesophageal Reflux: Yes - Genitourinary/Gynecological Hx Sexually Transmitted Diseases: No - Psychiatric Hx Anxiety: Yes Hx Depression: Yes Hx Substance Use: No - Past Surgical History Past Surgical History: Non-Contributing - Surgical History Hx Cardiac Catheterization: Yes Other/Comment: Colonoscopy. Endoscopy - Anesthesia Hx Anesthesia: Yes Hx Anesthesia Reactions: No Hx Malignant Hyperthermia: No - Suicidal Assessment Feels Threatened In Home Enviroment: No Family/Social History - Physician Review Nursing Documentation Reviewed: Yes Family/Social History: Unknown Family HX Smoking Status: Light Smoker < 10 Cigarettes Daily Hx Alcohol Use: Yes Frequency of alcohol use: Socially Hx Substance Use: No Hx Substance Use Treatment: No Allergies/Home Meds Allergies/Adverse Reactions: Allergies amoxicillin [From Augmentin] Allergy (Verified 07/20/18 19:48) NAUSEA clarithromycin [From Biaxin] Allergy (Verified 07/20/18 19:48) RASH clavulanic acid [From Augmentin] Allergy (Verified 07/20/18 19:48) NAUSEA Home Medications: Home Meds Medication Instructions Recorded Confirmed Insulin NPH Hum/Reg Insulin Hm 0 ml SC ACBD 11/29/17 07/20/18 [Humulin 70-30 Vial] Review of Systems - Physician Review All systems were reviewed & negative as marked: Yes - Review of Systems Constitutional: absent: Fevers Respiratory: absent: Cough Cardiovascular: absent: Chest Pain, Palpitations Gastrointestinal: absent: Abdominal Pain, Diarrhea, Nausea, Vomiting Genitourinary Female: absent: Dysuria Neurological: absent: Headache, Dizziness Endocrine: absent: Diaphoresis Physical Exam Vital Signs Reviewed: Yes Vital Signs Temp Pulse Resp BP Pulse Ox 08/01/18 12:47 98.0 F 105 H 16 145/89 96 Temperature: Afebrile Blood Pressure: Normal Pulse: Tachycardic Respiratory Rate: Normal Appearance: Positive for: Well-Appearing, Non-Toxic, Comfortable Pain Distress: None Mental Status: Positive for: Alert and Oriented X 3 - Systems Exam Head: Present: Atraumatic, Normocephalic Pupils: Present: PERRL Extroacular Muscles: Present: EOMI Conjunctiva: Present: Normal Mouth: Present: Moist Mucous Membranes Neck: Present: Normal Range of Motion Respiratory/Chest: Present: Clear to Auscultation, Good Air Exchange. No: Respiratory Distress, Accessory Muscle Use Cardiovascular: Present: Regular Rate and Rhythm, Normal S1, S2. No: Murmurs Abdomen: No: Tenderness, Distention, Peritoneal Signs Back: Present: Normal Inspection Upper Extremity: Present: Normal Inspection. No: Cyanosis, Edema Lower Extremity: Present: Normal Inspection. No: Edema Neurological: Present: GCS=15, Speech Normal Skin: Present: Warm, Dry, Normal Color. No: Rashes Psychiatric: Present: Alert, Oriented x 3, Normal Insight, Normal Concentration, Anxious Medical Decision Making ED Course and Treatment: 08/01/18 14:21 Impression: 57 year old female presents to the emergency department for possible overdose to fluoxetine. Differential Diagnosis included but are not limited to: --Medication Adverse Effect --Anxiety Plan: -- EKG -- Labs -- Chest X-ray -- IV Fluids --PES evaluation -- Reassess and disposition Prior Visits: Notes and results from previous visits were reviewed. Progress Notes: 08/01/18 17:52 Labs reviewed with no outstanding results aside from elevated glucose. Patient is medically cleared. PES in home tutor at the bedside. 08/01/18 18:55 Discussed case with PES in home tutor who states patient is accepted onto inpatient psychiatric service via Dr. Montilla. - Lab Interpretations Lab Results: 08/01/18 15:04 08/01/18 15:04 Lab Results 08/01/18 15:04: Acetaminophen < 10.0 L 08/01/18 15:04: Free T4 1.22, TSH 3rd Generation 0.95, Alcohol, Quantitative < 10 08/01/18 15:04: Urine Opiates Screen Negative, Urine Methadone Screen Negative, Ur Barbiturates Screen Negative, Ur Phencyclidine Scrn Negative, Ur Amphetamines Screen Negative, U Benzodiazepines Scrn Negative, U Oth Cocaine Metabols Negative, U Cannabinoids Screen Negative 08/01/18 15:04: Sodium 139, Potassium 4.6, Chloride 100, Carbon Dioxide 29, Anion Gap 14, BUN 14, Creatinine 0.7, Est GFR ( Amer) > 60, Est GFR (Non- Af Amer) > 60, Random Glucose 271 H, Calcium 9.6, Total Bilirubin 0.2, AST 18, ALT 10, Alkaline Phosphatase 100, Total Protein 7.1, Albumin 3.8, Globulin 3.3, Albumin/Globulin Ratio 1.1 08/01/18 15:04: WBC 5.9, RBC 4.46, Hgb 13.0, Hct 39.4, MCV 88.3, MCH 29.1, MCHC 33.0, RDW 14.4, Plt Count 172, MPV 9.1, Neut % (Auto) 68.9 H, Lymph % (Auto) 26.2, [place] % (Auto) 4.2, Eos % (Auto) 0.5 L, Baso % (Auto) 0.2, Lymph # (Auto) 1.6, [place] # (Auto) 0.3, Eos # (Auto) 0.0, Baso # (Auto) 0.01, Absolute Neuts (auto) 4.07 I have reviewed the lab results: Yes - RAD Interpretation Narrative RAD Interpretations (Text): 08/01/18 16:40 Chest X-ray shows: No active pulmonary disease. Radiology Orders: 08/01/18 13:27 CHEST PORTABLE [RAD] Stat Operating Table Assembler: Radiologist - EKG Interpretation EKG Interpretation (Text): 08/01/18 17:01 EKG reviewed, shows: NSR at 11 bpm, No ST elevations, Slight QT prolongations Interpreted by ED Physician: Yes - Medication Orders Current Medication Orders: 08/01/18 17:51 Discontinued Medications Diazepam (Valium) 5 mg PO ONCE ONE; Protocol Stop: 08/01/18 15:00 Last Admin: 08/01/18 15:27 Dose: 5 mg Ketorolac Tromethamine (Toradol) 60 mg IM STAT STA Stop: 08/01/18 15:00 Last Admin: 08/01/18 15:28 Dose: 60 mg MAR Pain Assessment Document 08/01/18 15:28 [facility] (Rec: 08/01/18 15:28 [facility] [id number]) Pain Reassessment Is this a pain reassessment? No Sleep Is patient sleeping during reassessment? No Presence of Pain Presence of Pain Yes Pain Scale Used Protocol: PSCALES Pain Scale Used Numeric IM Administration Charges Document 08/01/18 15:28 [facility] (Rec: 08/01/18 15:28 [facility] [id number]) Charges for Administration # of IM Administrations 1 Lidocaine (Lidoderm) 1 ea TD ONCE ONE Stop: 08/01/18 15:00 Last Admin: 08/01/18 15:28 Dose: Not Given Non-Admin Reason: Patient Refused - Scribe Statement The provider has reviewed the documentation as recorded by the Arnoldo Dillon Provider Scribe Attestation: All medical record entries made by the Prachiibe were at my direction and personally dictated by me. I have reviewed the chart and agree that the record accurately reflects my personal performance of the history, physical exam, medical decision making, and the department course for this patient. I have also personally directed, reviewed, and agree with the discharge instructions and disposition. Disposition/Present on Arrival - Present on Arrival Any Indicators Present on Arrival: No History of DVT/PE: No History of Uncontrolled Diabetes: No Urinary Catheter: No History of Decub. Ulcer: No History Surgical Site Infection Following: None - Disposition Have Diagnosis and Disposition been Completed?: Yes Diagnosis: Schizophrenia Disposition: HOME/ ROUTINE Disposition Time: 19:14 Patient Plan: Admission Condition: STABLE Discharge Instructions (ExitCare): Schizophrenia (DC) Forms: [employer] (Moroccan)
--- NOTE | 2018-08-01 14:40 | RAD ---
Date of service: 08/01/2018 HISTORY: psych clearance COMPARISON: 07/20/2018. FINDINGS: LUNGS: The lungs are well inflated and clear. There is mild pulmonary venous congestion. PLEURA: No pleural effusions or pneumothorax. CARDIOVASCULAR: There is moderate cardiomegaly. No aortic atherosclerotic calcifications present. OSSEOUS STRUCTURES: Within normal limits for the patient's age. VISUALIZED UPPER ABDOMEN: Normal. OTHER FINDINGS: None. IMPRESSION: No active pulmonary disease.
[2018-08-01] MEDS ORDERED: Lidocaine 5% Patch TD ONE (14:59)
[2018-08-01 15:18] LABS: BASO # 0.01 K/mm3 (0.0-2.0); BASO % 0.2 % (0.0-3.0); EOS % 0.5 % (1.5-5.0); LYMPH # 1.6 (1.2-3.4); LYMPH % 26.2 % (22.0-35.0); MEAN CELL VOLUME 88.3 fl (80.0-105.0); MEAN CORPUSCULAR HEMOGLOBIN 29.1 pg (25.0-35.0); MEAN PLATELET VOLUME 9.1 fl (7.0-11.0); MONO # 0.3 (0.1-0.6); MONO % 4.2 % (1.0-6.0); RBC 4.46 10^6/uL (3.5-6.1); RED CELL DISTRIBUTION WIDTH 14.4 % (11.5-14.5); WHITE BLOOD COUNT 5.9 10^3/uL (4.5-11.0)
[2018-08-01 15:35] LABS: ALB/GLOB RATIO 1.1 (1.1-1.8); ALBUMIN 3.8 g/dL (3.0-4.8); ALT/SGPT 10 U/L (7-56); AST/SGOT 18 U/L (14-36); BLOOD UREA NITROGEN 14 mg/dL (7-21); CALCIUM 9.6 mg/dL (8.4-10.5); GFR NON-AFRICAN AMERICAN > 60
[2018-08-01 15:47] LABS: BARBITURATES, UR NEGATIVE (NEGATIVE); BENZODIAZEPINES, UR NEGATIVE (NEGATIVE); FREE T4 1.22 ng/dL (0.78-2.19); OPIATES, UR NEGATIVE (NEGATIVE); PHENCYCLIDINE, UR NEGATIVE (NEGATIVE)
--- NOTE | 2018-08-01 19:21 | CARD ---
APPROVED REPORT Date of service: 08/01/2018 EKG Measurement Heart [id number] <Conclusion> Sinus tachycardia Left axis deviation Abnormal ECG
[2018-08-01 19:41] LABS: PH,URINE 6.5 (4.7-8.0); URINE APPEARANCE CLEAR (CLEAR); URINE BILIRUBIN NEGATIVE (NEGATIVE); URINE BLOOD NEGATIVE (NEGATIVE); URINE COLOR LIGHT YELLOW (YELLOW); URINE GLUCOSE (UA) >=1000 mg/dL (NEGATIVE); URINE LEUKOCYTE ESTERASE TRACE Leu/uL (NEGATIVE); URINE PROTEIN NEGATIVE mg/dL (<30 mg/dL); URINE UROBILINOGEN 0.2 E.U./dL (<1 E.U./dL)
[2018-08-01 19:49] LABS: URINE EPITHELIAL CELLS 0 - 2 /hpf (0-5); URINE WBC 0 - 2 /hpf (0-6)
[2018-08-01 20:20] VITALS: O2SAT 98
[2018-08-01] MEDS ORDERED: Magnesium Hydroxide Susp 30 ml UD PO PRN (21:08)
[2018-08-01] MEDS ORDERED: Insulin Detemir 100 units/ml Vial (Levemir) SC SCH (22:00)
[2018-08-01] MEDS: Divalproex 500 mg ER (ONCE DAILY formulation) PO SCH (22:02)
--- NOTE | 2018-08-01 23:04 | PCM.BM ---
<Tato Morse - Last Filed: 08/01/18 23:00> Treatment Plan Problems - Problems identified on initial assessmt Auditory hallucinations Date Initiated: 08/01/18 Time Initiated: 23:01 Assessment reference: NA Status: Active Altered thought process Date Initiated: 08/01/18 Time Initiated: 23:01 Assessment reference: NA Status: Active Ineffective coping Date Initiated: 08/01/18 Time Initiated: 23:01 Assessment reference: NA Status: Active Treatment assets and liabiliti Patient Assests: adapts well, cooperative, educated, motivated, ADL independent, negotiates basic needs Patient Liabilities: live alone, physical pain, medical problems, imparied memory - Milieu Protocol Maintain good personal hygiene: daily Encourage regular showers, daily Remind patient to perform daily oral care, daily Assist patient to perform ADL's Conduct patient checks and document Observation sheet: Q15 minutes Maintain personal safety: daily Educate patient to report safety concerns to staff, every shift Monitor environment for contraband/sharps Medication safety: Monitor for expected outcome, potential side effects: every shift, Assess barriers to learning: every shift, Assess readiness for medication education: every shift Family Contact Family involvement: Family/SO is involved Family contact: Patient agrees to contact - Goals for Treatment Patient goals for treatment: medication adjustment Discharge/Continuing Care - Education Needs Education Needs: Patient Medication, Patient Diagnosis/Disease Process, Patient Coping Skills, Patient Community resources, Patient Activities of Daily Living, Patient Pain, Patient Nutrition, Patient Health Practices/Safety, Patient Personal Hygiene/Grooming, Patient Aftercare Safety Plan - Discharge Discharge Criteria: Tolerates medication w/o severe side effects, Free of paranoid thoughts, Normal sleep pattern, Ability to care for self, Reduction of target symptoms Discharge to:: Home <Joann Spann - Last Filed: 08/02/18 15:07> Family Contact - Outside Agency [facility] Care involvment: Information-sharing Agency contact name: [facility] Agency contact number: [phone] <Eladia Valentine - Last Filed: 08/02/18 15:45> - Diagnosis (1) Schizoaffective disorder Status: Chronic Interventions: 08/02/18 15:44 Psychoeducation/psychotherapy Psychopharmacology/adjustment of medications as needed/ monitoring possible side effects Evaluate pt on daily basis Compliance with medications and follow up appointments Long acting medication if pt is noncompliant with pill form Suicide and homicide risk assessment and prevention, coping strategies, safety plan Relapse prevention Reduction of symptoms Improve functional status Possible assertive community treatment Cognitive behavioral therapy Family involvement Possible social skill training as outpatient
[2018-08-02] MEDS: Insulin Lispro 1 UNITS/0.01 ML SC SCH ×3 (08:15→17:03)
[2018-08-02 08:37] LABS: HDL CHOLESTEROL 39 mg/dL (29-60)
[2018-08-02 08:48] LABS: LDL CHOLESTEROL 113 mg/dL (0-129)
--- NOTE | 2018-08-02 15:44 | PCM.PSYCH ---
Initial Psychiatric Evaluation - Initial Psychiatric Evaluation Type of Admission: Voluntary Legal Status: Capacity (Patient had a capacity to sign consent for treatment) Chief Complaint (in patient's own words): "my neighbors don't want me there, they said this psycho bitch again needs to unclog her toilet" Patient's Reaction to Hospitalization: Patient was admitted to the psychiatric inpatient unit for evaluation and stabilization of psychotic symptoms, inability to function, paranoia. History of Present Illness and Precipitating Events: Patient is 57 year old Female, reported h/o schizoaffective disorder, multiple psychiatric admissions most recently at [facility] [facility] 06/27, likely noncompliant with prescribed psychiatric medications, who presented to the our ER with complaints of "side effect from Prolixin shot", as well as depression and anxiety, pt noted to be disorganized with prominent negative symptoms. This expert medical writer is very familiar with this patient from previous hospitalizations, patient was seen at the treatment team meeting, poor personal hygiene, poor ADLs, patient presented to be psychotic, convinced that recently she developed some side effects from the Prolixin Decanoate which she received about months ago, patient is convinced that she has some type of side effects which she was not able to describe "all I know that it did not fit my body.. I became psychotic". Based on this expert medical writer assessment last admission, pt did not developed any side effect from Prolixin Decanoate, was in very good shape prior to discharge, no psychotic symptoms developed after Prolixin Dec, basically pt was presenting much better at the time of d/c. During today's evaluation patient presented with disorganized thoughts, patient appears to be paranoid, psychotic, patient reported that "people in my building do not want me there, they called me psycho bitch", at the same time patient did not see any of the people who are saying such things to her. pt had the same exact delusions last admission. Patient also presented to be irritable, annoyed, especially when medications discussed, this expert medical writer offered to wean off Elavil but patient abruptly said "I want my Elavil, do you understand me?", Patient said that she is taking Elavil for sleep. at the time of admission pt presented to be a poor historian and cannot meaningfully engage in an interview due to her psychosis. There had prominent thought blocking , poorly groomed, internally preoccupied, irritable, guarded and paranoid. Patient has been emotional and is prone to outbursts. During her prior admission patient had a tendency of throwing herself on the floor. Most likely patient was noncompliant with her medications, possible misuse and abuse benzodiazepines because urine drug screen was negative for it. From the last admission 07/05/15 SW obtained collaterals from pt's sister Mallory. pt was decompensating for the past 6months, but for the past three months pt was psychotic, paranoid, thought that they were stolen her meds, pt also called police and they were evicted from her apartment. sister also reported that pts toilet was clotted, when pt's super tried to assist pt with that pt thought that she was harassed. pt never been aggressive, but this time pt had mood swings and aggressive tendencies. Past psychiatric history: History of schizoaffective disorder, multiple psychiatric admissions, poor medication compliance. Social history: Patient lives alone in [place]. Patient reported no drinking alcohol, smokes cigarettes "about a few a day..", nicotine patch was offered, patient declined that offer. Counseling provided. Medical history: PMD (PMD) and (second baller) Family history: Unknown. 08/01/18 15:04 08/01/18 15:04 Lab Results 08/02/18 07:30: Valproic Acid 61 08/02/18 07:30: TSH 3rd Generation 2.13 08/02/18 07:30: Triglycerides 250 H, Cholesterol 188, LDL Cholesterol Direct 113, HDL Cholesterol 39 08/02/18 07:24: POC Glucose (mg/dL) 203 H 08/01/18 20:49: POC Glucose (mg/dL) 220 H 08/01/18 19:30: Urine Color Light yellow, Urine Appearance Clear, Urine pH 6.5, Ur Specific [place] 1.010, Urine Protein Negative, Urine Glucose (UA) >=1000, Urine Ketones Negative, Urine Blood Negative, Urine Nitrate Negative, Urine Bilirubin Negative, Urine Urobilinogen 0.2, Ur Leukocyte Esterase Trace H, Urine RBC None, Urine WBC 0 - 2, Ur Epithelial Cells 0 - 2 08/01/18 15:04: Acetaminophen < 10.0 L 08/01/18 15:04: Free T4 1.22, TSH 3rd Generation 0.95, Alcohol, Quantitative < 10 08/01/18 15:04: Urine Opiates Screen Negative, Urine Methadone Screen Negative, Ur Barbiturates Screen Negative, Ur Phencyclidine Scrn Negative, Ur Amphetamines Screen Negative, U Benzodiazepines Scrn Negative, U Oth Cocaine Metabols Negative, U Cannabinoids Screen Negative 08/01/18 15:04: Sodium 139, Potassium 4.6, Chloride 100, Carbon Dioxide 29, Anion Gap 14, BUN 14, Creatinine 0.7, Est GFR ( Amer) > 60, Est GFR (Non- Af Amer) > 60, Random Glucose 271 H, Calcium 9.6, Total Bilirubin 0.2, AST 18, ALT 10, Alkaline Phosphatase 100, Total Protein 7.1, Albumin 3.8, Globulin 3.3, Albumin/Globulin Ratio 1.1 08/01/18 15:04: WBC 5.9, RBC 4.46, Hgb 13.0, Hct 39.4, MCV 88.3, MCH 29.1, MCHC 33.0, RDW 14.4, Plt Count 172, MPV 9.1, Neut % (Auto) 68.9 H, Lymph % (Auto) 26.2, [place] % (Auto) 4.2, Eos % (Auto) 0.5 L, Baso % (Auto) 0.2, Lymph # (Auto) 1.6, [place] # (Auto) 0.3, Eos # (Auto) 0.0, Baso # (Auto) 0.01, Absolute Neuts (auto) 4.07 Vital Signs Temp Pulse Pulse Resp BP Pulse Ox 08/02/18 08:15 86 132/81 08/02/18 08:14 132/81 08/02/18 07:00 98.1 F 86 20 132/81 08/01/18 22:17 91 H 18 08/01/18 17:30 78 18 148/88 98 08/01/18 15:00 88 18 148/76 99 08/01/18 12:47 98.0 F 105 H 16 145/89 96 Patient denied ever being abused The patient failed the outpatient lower level of care: Yes Current Medications: Active Medications Generic Name Dose Route Start Last Admin Trade Name Freq PRN Reason Stop Dose Admin Acetaminophen 650 mg 08/01/18 21:21 Tylenol 325mg Tab PO Q6H PRN Pain, moderate (4-7) Al Hydrox/Mg Hydrox/Simethicone 30 ml 08/01/18 21:08 Maalox Plus 30 Ml PO DAILY PRN Upset Stomach Amitriptyline HCl 75 mg 08/01/18 22:00 08/01/18 22:02 Elavil PO 75 mg HS HOA Administration Atorvastatin Calcium 40 mg 08/02/18 17:00 Lipitor PO DIN HOA Benztropine Mesylate 1 mg 08/02/18 08:00 08/02/18 08:14 Cogentin PO 1 mg DAILY HOA Administration Chlorpromazine 50 mg 08/01/18 21:23 Thorazine PO TID PRN Agitation Protocol Chlorpromazine 50 mg 08/01/18 21:35 Thorazine IM TID PRN Agitation Protocol Clonazepam 0.5 mg 08/02/18 08:00 08/02/18 08:14 Klonopin PO 0.5 mg BID HOA Administration Protocol Clonazepam 0.5 mg 08/01/18 22:00 08/01/18 22:02 Klonopin PO 0.5 mg HS HOA Administration Protocol Divalproex Sodium 1,500 mg 08/01/18 22:00 08/01/18 22:02 Depakote Er(Once Daily) PO 1,500 mg HS HOA Administration Protocol Docusate Sodium 100 mg 08/02/18 08:00 08/02/18 08:14 Colace PO 100 mg BID HOA Administration Furosemide 20 mg 08/02/18 08:00 08/02/18 08:14 Lasix PO 20 mg DAILY HOA Administration Insulin Detemir 40 unit 08/01/18 22:00 08/01/18 22:02 Levemir SC 40 unit HS HOA Administration Insulin Human Lispro 12 units 08/02/18 07:30 08/02/18 08:15 Humalog SC 12 units AC HOA Administration Lisinopril 20 mg 08/02/18 08:00 08/02/18 08:15 Zestril PO 20 mg DAILY HOA Administration Lorazepam 2 mg 08/01/18 21:23 Ativan IM TID PRN Anxiety Protocol Lorazepam 2 mg 08/01/18 21:34 Ativan PO TID PRN Agitation Protocol Magnesium Hydroxide 30 ml 08/01/18 21:08 Milk Of Magnesia PO DAILY PRN Constipation Sennosides 8.6 mg 08/02/18 08:00 08/02/18 08:15 Senokot Tab PO 8.6 mg DAILY HOA Administration Present on Admission - Present on Admission Any Indicators Present on Admission: No Review of Systems - Review of Systems Systems not reviewed;Unavailable: Acuity of Condition - Constitutional Constitutional: As Per HPI - EENT Eyes: As Per HPI Ears: As Per HPI Nose/Mouth/Throat: As Per HPI - Breasts Breasts: As Per HPI - Cardiovascular Cardiovascular: As Per HPI - Respiratory Respiratory: As Per HPI - Gastrointestinal Gastrointestinal: As Per HPI - Genitourinary Genitourinary: As Per HPI - Reproductive: Female Reproductive:Female: As Per HPI - Menstruation Menstruation: As Per HPI - Musculoskeletal Musculoskeletal: As Per HPI - Integumentary Integumentary: As Per HPI - Neurological Neurological: As Per HPI - Psychiatric Psychiatric: As Per HPI - Endocrine Endocrine: As Per HPI - Hematologic/Lymphatic Hematologic: As Per HPI Past Patient History - Past Psychiatric History Previous Treatment History: Inpatient Prior Professional Help: see HPI Prior Psychiatric Treatment: see HPI At what hospital: see HPI Duration: see HPI Nature of Treatment: see HPI Explanation of prior treatment: see HPI - PSYCHIATRIC Hx Bipolar Disorder: Yes Hx Schizophrenia: Yes Hx Substance Use: No - Infectious Disease Hx of Infectious Diseases: None - Tetanus Immunizations Tetanus Immunization: Unknown - Past Medical History & Family History Past Medical History?: Yes - CARDIAC Hx Hypercholesterolemia: Yes Hx Hypertension: Yes - PULMONARY Hx Tuberculosis: No - NEUROLOGICAL Hx Neurological Disorder: No HX Cerebrovascular Accident: No Hx Seizures: No - HEENT Hx HEENT Problems: No - RENAL Hx Chronic Kidney Disease: No - ENDOCRINE/METABOLIC Hx Endocrine Disorders: Yes Hx Diabetes Mellitus Type 2: Yes - HEMATOLOGICAL/ONCOLOGICAL Hx Cancer: No - INTEGUMENTARY Hx Dermatological Problems: Yes - MUSCULOSKELETAL/RHEUMATOLOGICAL Hx Musculoskeletal Disorders: Yes Hx Arthritis: Yes Hx Back Pain: Yes - GASTROINTESTINAL Hx Gastrointestinal Disorders: Yes Hx Diverticulitis: Yes Hx Gastroesophageal Reflux: Yes - GENITOURINARY/GYNECOLOGICAL Hx Sexually Transmitted Disorders: No - SURGICAL HISTORY Hx Cardiac Catheterization: Yes Other/Comment: Colonoscopy. Endoscopy - ANESTHESIA Hx Anesthesia: Yes Hx Anesthesia Reactions: No Hx Malignant Hyperthermia: No - Medical/Surgical History Reviewed & confirmed: by oh Meds Allergies/Adverse Reactions: Allergies Allergy/AdvReac Type Severity Reaction Status Date / Time amoxicillin [From Augmentin] Allergy NAUSEA Verified 08/01/18 20:52 clarithromycin [From Biaxin] Allergy RASH Verified 08/01/18 20:52 clavulanic acid Allergy NAUSEA Verified 08/01/18 20:52 [From Augmentin] Mental Status Examination - Personal Presentation Personal Presentation: Looks older than stated age - Affect Affect: Constricted, Flat - Motor Activity Motor Activity: Psychomotor Retardation - Reliability in Providing Information Reliability in Providing Information: Poor, due to alteration in thoughts, Poor, due to altered mood, Poor, due to cognitve impairment - Speech Speech: Disorganized, Irrelevant, Tangential - Mood Mood: Depressed, Anxious - Formal Thought Process Formal Thought Process: Hallucinations, Delusions, Paranoia, Loosening of associations, Circumstantial - Hallucinations/Delusions Hallucinations: Auditory Delusions: Persecution - Obsessions/Compulsions Obsessions: No Compulsions: No - Cognitive Functions Orientation: Person, Place, Situation Sensorium: Alert Attention/Concentration: Easily distracted Abstract Thinking: [place] Estimate of Intelligence: Below average Judgement: Intact, as evidence by: Insight regarding need for hospitalization - Risk Risk: Diminished functioning - Strength & Assets Inventory Strength & Assets Inventory: Cooperative - Limitations Limitations: Other (History of noncompliance, poor social support, severe mental illness) Psychiatric Physical Exam - Physical Exam Reviewed and confirmed: Emergency Department Physical Exam Results - Vital Signs Recent Vital Signs: Last Vital Signs Temp 98.1 F 08/02/18 07:00 Pulse 86 08/02/18 08:15 Resp 20 08/02/18 07:00 BP 132/81 08/02/18 08:15 Pulse Ox 98 08/01/18 17:30 - Labs Result Diagrams: 08/01/18 15:04 08/01/18 15:04 Labs: Laboratory Results - last 24 hr 08/01/18 08/01/18 08/01/18 15:04 15:04 15:04 WBC 5.9 RBC 4.46 Hgb 13.0 Hct 39.4 MCV 88.3 MCH 29.1 MCHC 33.0 RDW 14.4 Plt Count 172 MPV 9.1 Neut % (Auto) 68.9 H Lymph % (Auto) 26.2 [place] % (Auto) 4.2 Eos % (Auto) 0.5 L Baso % (Auto) 0.2 Lymph # (Auto) 1.6 [place] # (Auto) 0.3 Eos # (Auto) 0.0 Baso # (Auto) 0.01 Absolute Neuts (auto) 4.07 Sodium 139 Potassium 4.6 Chloride 100 Carbon Dioxide 29 Anion Gap 14 BUN 14 Creatinine 0.7 Est GFR ( Amer) > 60 Est GFR (Non-Af Amer) > 60 POC Glucose (mg/dL) Random Glucose 271 H Calcium 9.6 Total Bilirubin 0.2 AST 18 ALT 10 Alkaline Phosphatase 100 Total Protein 7.1 Albumin 3.8 Globulin 3.3 Albumin/Globulin Ratio 1.1 Triglycerides Cholesterol LDL Cholesterol Direct HDL Cholesterol Free T4 TSH 3rd Generation Urine Color Urine Appearance Urine pH Ur Specific [place] Urine Protein Urine Glucose (UA) Urine Ketones Urine Blood Urine Nitrate Urine Bilirubin Urine Urobilinogen Ur Leukocyte Esterase Urine RBC Urine WBC Ur Epithelial Cells Urine Opiates Screen Negative Urine Methadone Screen Negative Acetaminophen Ur Barbiturates Screen Negative Valproic Acid Ur Phencyclidine Scrn Negative Ur Amphetamines Screen Negative U Benzodiazepines Scrn Negative U Oth Cocaine Metabols Negative U Cannabinoids Screen Negative Alcohol, Quantitative 08/01/18 08/01/18 08/01/18 15:04 15:04 19:30 WBC RBC Hgb Hct MCV MCH MCHC RDW Plt Count MPV Neut % (Auto) Lymph % (Auto) [place] % (Auto) Eos % (Auto) Baso % (Auto) Lymph # (Auto) [place] # (Auto) Eos # (Auto) Baso # (Auto) Absolute Neuts (auto) Sodium Potassium Chloride Carbon Dioxide Anion Gap BUN Creatinine Est GFR ( Amer) Est GFR (Non-Af Amer) POC Glucose (mg/dL) Random Glucose Calcium Total Bilirubin AST ALT Alkaline Phosphatase Total Protein Albumin Globulin Albumin/Globulin Ratio Triglycerides Cholesterol LDL Cholesterol Direct HDL Cholesterol Free T4 1.22 TSH 3rd Generation 0.95 Urine Color Light yellow Urine Appearance Clear Urine pH 6.5 Ur Specific [place] 1.010 Urine Protein Negative Urine Glucose (UA) >=1000 Urine Ketones Negative Urine Blood Negative Urine Nitrate Negative Urine Bilirubin Negative Urine Urobilinogen 0.2 Ur Leukocyte Esterase Trace H Urine RBC None Urine WBC 0 - 2 Ur Epithelial Cells 0 - 2 Urine Opiates Screen Urine Methadone Screen Acetaminophen < 10.0 L Ur Barbiturates Screen Valproic Acid Ur Phencyclidine Scrn Ur Amphetamines Screen U Benzodiazepines Scrn U Oth Cocaine Metabols U Cannabinoids Screen Alcohol, Quantitative < 10 08/01/18 08/02/18 08/02/18 20:49 07:24 07:30 WBC RBC Hgb Hct MCV MCH MCHC RDW Plt Count MPV Neut % (Auto) Lymph % (Auto) [place] % (Auto) Eos % (Auto) Baso % (Auto) Lymph # (Auto) [place] # (Auto) Eos # (Auto) Baso # (Auto) Absolute Neuts (auto) Sodium Potassium Chloride Carbon Dioxide Anion Gap BUN Creatinine Est GFR ( Amer) Est GFR (Non-Af Amer) POC Glucose (mg/dL) 220 H 203 H Random Glucose Calcium Total Bilirubin AST ALT Alkaline Phosphatase Total Protein Albumin Globulin Albumin/Globulin Ratio Triglycerides 250 H Cholesterol 188 LDL Cholesterol Direct 113 HDL Cholesterol 39 Free T4 TSH 3rd Generation Urine Color Urine Appearance Urine pH Ur Specific [place] Urine Protein Urine Glucose (UA) Urine Ketones Urine Blood Urine Nitrate Urine Bilirubin Urine Urobilinogen Ur Leukocyte Esterase Urine RBC Urine WBC Ur Epithelial Cells Urine Opiates Screen Urine Methadone Screen Acetaminophen Ur Barbiturates Screen Valproic Acid Ur Phencyclidine Scrn Ur Amphetamines Screen U Benzodiazepines Scrn U Oth Cocaine Metabols U Cannabinoids Screen Alcohol, Quantitative 08/02/18 07:30 WBC RBC Hgb Hct MCV MCH MCHC RDW Plt Count MPV Neut % (Auto) Lymph % (Auto) [place] % (Auto) Eos % (Auto) Baso % (Auto) Lymph # (Auto) [place] # (Auto) Eos # (Auto) Baso # (Auto) Absolute Neuts (auto) Sodium Potassium Chloride Carbon Dioxide Anion Gap BUN Creatinine Est GFR ( Amer) Est GFR (Non-Af Amer) POC Glucose (mg/dL) Random Glucose Calcium Total Bilirubin AST ALT Alkaline Phosphatase Total Protein Albumin Globulin Albumin/Globulin Ratio Triglycerides Cholesterol LDL Cholesterol Direct HDL Cholesterol Free T4 TSH 3rd Generation Urine Color Urine Appearance Urine pH Ur Specific [place] Urine Protein Urine Glucose (UA) Urine Ketones Urine Blood Urine Nitrate Urine Bilirubin Urine Urobilinogen Ur Leukocyte Esterase Urine RBC Urine WBC Ur Epithelial Cells Urine Opiates Screen Urine Methadone Screen Acetaminophen Ur Barbiturates Screen Valproic Acid 61 Ur Phencyclidine Scrn Ur Amphetamines Screen U Benzodiazepines Scrn U Oth Cocaine Metabols U Cannabinoids Screen Alcohol, Quantitative - EKG Data EKG Interpreted by: ER Physician EKG shows normal: Sinus rhythm Rate: Tachycardia DSM Plan - DSM 5 DSM 5 Diagnosis: Schizoaffective disorder, bipolar type - Recommended/Plan of Treatment Treatment Recommendations and Plan of Treatment: Milieu/structure/supportive therapy SW consultation for discharge plan and social issues Med management: Family involvement Follow up on labs Will monitor closely Pt was educated about risk/benefits and alternatives of medications, coping strategies (safety plan, suicide prevention), relapse prevention, importance of follow up with psychiatrist and therapist, stay away from drugs/alcohol/smoking Prescriptions/Medication Reconciliation from last admission: fluPHENAZine Decanoate [Fluphenazine Decanoate] 50 mg IJ Q30D #1 vial Amitriptyline [Elavil] 100 mg PO HS #30 tab Atorvastatin [Lipitor] 40 mg PO DIN #7 tab Benztropine [Cogentin] 1 mg PO DAILY #14 tab clonazePAM [Klonopin] 1 mg PO BID #30 tab Divalproex [Depakote ER(ONCE DAILY)] 1,500 mg PO HS #45 ter Docusate [Colace] 100 mg PO BID #14 cap Fluconazole [Diflucan] 150 mg PO DAILY #21 tab Furosemide [Lasix] 20 mg PO DAILY #7 tab Insulin Detemir [Levemir] 40 unit SC HS 30 Days unit Insulin Lispro [humALOG] 12 units SC AC 30 Days ml Lisinopril [Zestril] 20 mg PO DAILY #7 tab metroNIDAZOLE [Flagyl] 500 mg PO Q8H #21 tab Sennosides A and B [Senokot Tab] 8.6 mg PO DAILY #7 tab Projected ELOS: 10 days Prognosis: Guarded Discharge Plan and Discharge Criteria: Mood will be stable, pt will be more hopeful, will be not psychotic or anxious, will be tolerating medications well, will not have major side effects, will be able to function, will not pose threat to self or others. - Tobacco Cessation Tobacco Use Status for the last 30 days: Light User(<=4 cigs daily, cigar/pipes not daily,or smokeless tobacco) Tobacco Use Treatment Practical Counseling Provided: Yes Tobacco Use Treatment FDA-Approved Cessation Medication Provided: No Reason for not providing: Patient refused tobacco cessation medication - Alcohol or Substance Abuse Does the patient have an Alcohol or Substance Abuse Disorder: Yes Initial Psych Certification - Initial Certification I estimate of hospitalization is necessary for proper treatment of the patient: 7 Unit of Time: Days My plans for post-hospital care for this patient are: Day treatment program
[2018-08-02] MEDS: Divalproex 500 mg ER (ONCE DAILY formulation) PO SCH (21:36)
[2018-08-02] MEDS: Insulin Detemir 100 units/ml Vial (Levemir) SC SCH (21:36)
[2018-08-02] MEDS: Mupirocin 2% Ointment 15 GM TUBE TOP SCH (22:05)
--- NOTE | 2018-08-03 01:13 | CON ---
DATE: 08/02/2018 HISTORY OF PRESENT ILLNESS: The patient came into the psychiatric floor because of depression. She does have a history of schizoaffective disorder, bipolar disorder and seen by Dr. Montilla in the past and I was consulted for medical management. The patient was seen today, 08/02/2018 as a consult for medical conditions. The patient has history of diabetes, hypertension, obesity, and obstructive sleep apnea. She has a history of falls two times and etiology unclear why she fell, she tripped over something and she hit her left side with left rib area pain and left knee scratches and discomfort from it. She was in medical psychiatric floor, admitted for exacerbation of underlying psychotic disorder as per Dr. Montilla. The patient right now, she has only right-sided chest pain worse with breathing and is tender on examination. No respiratory distress, No fever. No nausea, vomiting, or diarrhea. No leg edema. PAST MEDICAL HISTORY: As I mentioned above, schizoaffective disorder, bipolar disorder, diabetes insulin dependent, morbid obesity, obstructive sleep apnea, hypertension, chronic osteoarthritis, chronic back pain, and chronic anxiety. ALLERGIES: THE PATIENT IS ALLERGIC TO AMOXICILLIN, CLARITHROMYCIN, AND CLAVULANIC ACID. HOME MEDICATIONS: Flagyl every 8 hours. She also takes fluphenazine decanoate 50 mg injection. She also gets Klonopin 1 mg b.i.d., Senokot, Zestril 20. Insulin; she is getting Humalog 12 units a.c. meals and Levemir 40 units at bedtime. Lasix 20 mg p.o. daily, Colace 100 b.i.d., and Depakote 1500 mg b.i.d.. She is getting Cogentin 1 mg p.o. daily, Lipitor 40, and Elavil 100 mg daily. REVIEW OF SYSTEMS: As in the present illness. She also complained of back pain, knee pain, difficult ambulation, thought disorders and anxiety. Also urinary stress incontinence. PHYSICAL EXAMINATION: VITAL SIGNS: Temperature 98, heart rate 86, blood pressure 132/81, respirations 18, and saturation 98% room air. HEAD AND NECK: Normal. No JVD. No thyromegaly. CHEST: Clear bilaterally. There is tenderness on the right side lower ribs. CARDIAC: First sound and second sound normal. ABDOMEN: Soft, obese, and nontender. EXTREMITIES: Left knee scratches and abrasions healed. No edema. NEUROLOGIC: Normal. LABORATORY DATA: Blood test shows white count 5.9, hemoglobin 13, hematocrit 39.4, and platelets 172. Chemistries; sodium 139, potassium 4.6, chloride 100, bicarbonate 29, BUN 14, creatinine 0.7, blood sugar 271, calcium 9.6, and total bilirubin 0.2. Liver function test is normal. Albumin and globulin are normal. TSH is normal at 0.95. The patient also has cholesterol LDL of 113 and triglycerides of 250. IMPRESSION AND PLAN: 1. Left-sided chest pain secondary to trauma, could be rib fracture. We will get CT chest. We will give Lidoderm patch and for her left knee abrasions, give her Bactroban. 2. Morbid obesity, possible obstructive sleep apnea. We will give her continuous positive airway pressure before sleep. 3. Bipolar underlying psychosis, she has what looks like bipolar disorder. She is on antipsychotic therapy of Depakote with injection of fluphenazine once a month 50 mg plus she is getting Thorazine here, Thorazine p.o. and IM for any agitating mood plus she is getting Elavil, which she is getting 75 mg daily plus Ativan three times a day p.r.n. and Cogentin 1 mg p.o. daily. Continue antipsychotic therapy. Follow up with the psychiatrist for that. 4. insulin-dependent diabetes. Continue current insulin regimen. We will monitor the sugar, if it is less than 250, we may need to increase the Levemir to 5 more units, 45 units and we will see how she does and we will go from there. 5. Metabolically, the patient has hypertriglyceridemia and hypercholesterolemia. We will increase her cholesterol medicines a little more triglyceride therapy. Continue current therapy. Follow up clinically. Zana Mancera MD
[2018-08-03] MEDS ORDERED: Enoxaparin 40 mg Syringe SC SCH (08:00)
[2018-08-03] MEDS: Lidocaine 5% Patch TD SCH (08:31)
[2018-08-03] MEDS: Insulin Lispro 1 UNITS/0.01 ML SC SCH ×3 (09:01→17:30)
[2018-08-03] MEDS: Mupirocin 2% Ointment 15 GM TUBE TOP SCH ×2 (09:57→16:31)
--- NOTE | 2018-08-03 10:53 | CT ---
Date of service: 08/03/2018 PROCEDURE: CT Lumbar Spine without contrast HISTORY: low back pain moderaye COMPARISON: None available. TECHNIQUE: Axial computed tomography images were obtained of the lumbar spine without the use of intravenous contrast. Coronal and sagittal reformatted images were created and reviewed. Radiation dose: Total exam DLP = 1493.92 mGy-cm. This CT exam was performed using one or more of the following dose reduction techniques: Automated exposure control, adjustment of the mA and/or kV according to patient size, and/or use of iterative reconstruction technique. FINDINGS: VERTEBRAE: Unremarkable. No fracture. Normal alignment. DISCS/SPINAL CANAL/NEURAL FORAMINA: L1-2: Unremarkable. L2-3: Unremarkable. L3-4: Mild facet arthropathy right greater than left L4-5: Moderate to severe facet arthropathy right greater than left without stenosis L5-S1: Moderate to severe facet arthropathy without stenosis PARASPINAL SOFT TISSUES: Degenerative changes are seen in the sacroiliac joints bilaterally OTHER FINDINGS: None. IMPRESSION: Facet arthropathy in the lower lumbar spine with no stenosis. Degenerative changes in the sacroiliac joints bilaterally
--- NOTE | 2018-08-03 12:32 | CT ---
Date of service: 08/03/2018 PROCEDURE: CT Chest without contrast HISTORY: rt side pain chest wall COMPARISON: 08/02/2015 TECHNIQUE: Contiguous axial images were obtained through the chest without intravenous contrast enhancement. Sagittal and coronal reconstructions were performed. Radiation dose (DLP): 855.99 mGy-cm. This CT exam was performed using one or more of the following dose reduction techniques: Automated exposure control, adjustment of the mA and/or kV according to patient size, and/or use of iterative reconstruction technique. FINDINGS: LUNGS: Clear lungs. Visualized airway clear MEDIASTINUM: Unremarkable thoracic aorta. No aneurysm. Normal heart size. Mitral annular calcification noted. Coronary arterial calcification. Main pulmonary artery unremarkable. No vascular congestion. No lymphadenopathy. There is a very small hiatal hernia. There is atherosclerotic calcification of the abdominal aorta. PLEURA: No pleural fluid. No pneumothorax. BONES: Nondisplaced fractures of the right 4th through 7th ribs anterolaterally. No other fracture. UPPER ABDOMEN: Grossly unremarkable. OTHER FINDINGS: None. IMPRESSION: Nondisplaced fractures of the right 4th through 7th ribs. No other significant abnormality.
--- NOTE | 2018-08-03 14:58 | PCM.PYCHPN ---
Psychiatric Progress Note - Psychiatric Progress Note Patient seen today, length of contact: 30 minutes Patient Chief Complaint: "I am alright.., I don't want that stupid prolixin..." Problems Identified/Issues Discussed: This magazine writer tried to educate patient about risk/benefits/alternatives of the medications, discharge planning, coping strategies, but patient appears to be too psychotic for discussion. Medical Problems: See HPI Diagnostic Results: 08/01/18 15:04 08/01/18 15:04 Lab Results 08/03/18 11:17: POC Glucose (mg/dL) 223 H 08/03/18 07:42: POC Glucose (mg/dL) 203 H 08/02/18 20:55: POC Glucose (mg/dL) 280 H 08/02/18 16:10: POC Glucose (mg/dL) 173 H 08/02/18 11:22: POC Glucose (mg/dL) 168 H 08/02/18 07:30: RPR Nonreactive 08/02/18 07:30: Valproic Acid 61 08/02/18 07:30: TSH 3rd Generation 2.13 08/02/18 07:30: Triglycerides 250 H, Cholesterol 188, LDL Cholesterol Direct 113, HDL Cholesterol 39 08/02/18 07:24: POC Glucose (mg/dL) 203 H 08/01/18 20:49: POC Glucose (mg/dL) 220 H 08/01/18 19:30: Urine Color Light yellow, Urine Appearance Clear, Urine pH 6.5, Ur Specific [place] 1.010, Urine Protein Negative, Urine Glucose (UA) >=1000, Urine Ketones Negative, Urine Blood Negative, Urine Nitrate Negative, Urine Bilirubin Negative, Urine Urobilinogen 0.2, Ur Leukocyte Esterase Trace H, Urine RBC None, Urine WBC 0 - 2, Ur Epithelial Cells 0 - 2 08/01/18 15:04: Acetaminophen < 10.0 L 08/01/18 15:04: Free T4 1.22, TSH 3rd Generation 0.95, Alcohol, Quantitative < 10 08/01/18 15:04: Urine Opiates Screen Negative, Urine Methadone Screen Negative, Ur Barbiturates Screen Negative, Ur Phencyclidine Scrn Negative, Ur Amphetamines Screen Negative, U Benzodiazepines Scrn Negative, U Oth Cocaine Metabols Negative, U Cannabinoids Screen Negative 08/01/18 15:04: Sodium 139, Potassium 4.6, Chloride 100, Carbon Dioxide 29, Anion Gap 14, BUN 14, Creatinine 0.7, Est GFR ( Amer) > 60, Est GFR (Non- Af Amer) > 60, Random Glucose 271 H, Calcium 9.6, Total Bilirubin 0.2, AST 18, A LT 10, Alkaline Phosphatase 100, Total Protein 7.1, Albumin 3.8, Globulin 3.3, Albumin/Globulin Ratio 1.1 08/01/18 15:04: WBC 5.9, RBC 4.46, Hgb 13.0, Hct 39.4, MCV 88.3, MCH 29.1, MCHC 33.0, RDW 14.4, Plt Count 172, MPV 9.1, Neut % (Auto) 68.9 H, Lymph % (Auto) 26.2, [place] % (Auto) 4.2, Eos % (Auto) 0.5 L, Baso % (Auto) 0.2, Lymph # (Auto) 1.6, [place] # (Auto) 0.3, Eos # (Auto) 0.0, Baso # (Auto) 0.01, Absolute Neuts (auto) 4.07 Vital Signs Temp Pulse Pulse Resp BP Pulse Ox 08/03/18 09:01 110/65 08/03/18 08:23 83 110/65 08/03/18 07:19 98.0 F 83 20 110/65 08/02/18 16:00 105 H 127/84 08/02/18 08:15 86 132/81 08/02/18 08:14 132/81 08/02/18 07:00 98.1 F 86 20 132/81 08/01/18 22:17 91 H 18 08/01/18 17:30 78 18 148/88 98 08/01/18 15:00 88 18 148/76 99 08/01/18 12:47 98.0 F 105 H 16 145/89 96 DSM 5 Symptoms Update: Patient is 57 year old Female, reported h/o schizoaffective disorder, multiple psychiatric admissions most recently [place] [facility] [place], likely noncompliant with prescribed psychiatric medications, who presented to the our ER with complaints of "side effect from Prolixin shot", as well as depression and anxiety, pt noted to be disorganized with prominent negative symptoms. Patient was seen today in her room, patient appears to be sleepy, withdrawn, very hard to interview due to difficulty to stay focused and disorganized thoughts and presentation. As per staff report patient is compliant with her medications, disorganized, but not aggressive or agitated. At times patient appears to be disinhibited, cursing, appears to be angry. So far patient tolerates medications well, no side effects observed or reported, aims 0, no EPS. Current presentation most likely related to the fact that patient was not compliant with her medications, misusing and abusing them. Impression: Schizoaffective disorder, bipolar type, most recent episode mixed Medication Change: Yes (Elavil was decreased) Medical Record Reviewed: Yes Consults ordered or reviewed: Consultation appreciated, patient was seen by primary care physician Dr. Mancera Mental Status Examination - Cognitive Function Orientation: Person, Place, Situation Memory: Impaired Attention: Poor Concentration: Poor Association: Loose Fund of Knowledge: Poor - Mood Mood: Depressed, Anxious - Affect Affect: Constricted, Flat - Formal Thought Process Formal Thought Process: Hallucinations, Delusions, Paranoia, Loosening of associations, Circumstantial - Suicidal Ideation Suicidal Ideation: No - Homicidal Ideation Homicidal Ideation: No Goal/Treatment Plan - Goal/Treatment Plan Need for Continued Stay: Remain at risks for inpatient hospitalization, Severe depression anxiety, Discharge may exacerbated symptoms, Severe functional impairment Progress Toward Problem(s) and Goals/Treatment Plan: Milieu/structure/supportive therapy SW consultation for discharge plan and social issues Med management: Family involvement Follow up on labs Will monitor closely Pt was educated about risk/benefits and alternatives of medications, coping strategies (safety plan, suicide prevention), relapse prevention, importance of follow up with psychiatrist and therapist, stay away from drugs/alcohol/smoking Prescriptions/Medication Reconciliation from last admission: fluPHENAZine Decanoate was given 07/14/2018, next dose is due August 11 but patient does not want to continue on that medication Amitriptyline [Elavil] was decreased to 75 mg at the nighttime, plan to wean it off Benztropine [Cogentin] 1 mg PO DAILY Ativan 1 mg twice daily as needed for anxiety Divalproex [Depakote ER(ONCE DAILY)] 1,500 mg PO HS for mood stabilization We will monitor patient Estimated Date of D/C: 08/11/18
[2018-08-03] MEDS: Divalproex 500 mg ER (ONCE DAILY formulation) PO SCH (21:29)
[2018-08-03] MEDS: Insulin Detemir 100 units/ml Vial (Levemir) SC SCH (22:36)
[2018-08-04] MEDS: Insulin Lispro 1 UNITS/0.01 ML SC SCH ×3 (08:39→19:03)
[2018-08-04] MEDS: Mupirocin 2% Ointment 15 GM TUBE TOP SCH ×2 (08:40→16:10)
[2018-08-04] MEDS: Lidocaine 5% Patch TD SCH (08:44)
[2018-08-04] MEDS ORDERED: Oxycodone/Acetaminophen 5/325 mg Tab PO PRN (09:11)
--- NOTE | 2018-08-04 14:04 | PN ---
DATE: 08/04/2018 SUBJECTIVE: The patient is seen in psych unit. She is still complaining of right-sided rib pain and lumbosacral area lower back pain. She still looks depressed, otherwise no other complaint. PHYSICAL EXAMINATION: VITAL SIGNS: Temperature 98.1, heart rate 76, blood pressure 117/75, and respirations 20. HEAD AND NECK: Normal. No JVD. No thyromegaly. CHEST: Clear bilateral. CARDIAC: First sound and second sound normal. ABDOMEN: Morbidly obese. Bowel sounds are present. EXTREMITIES: No edema. NEUROLOGICAL: Normal except restricted lumbosacral back movements, flexion and extension and also lateral flexion on both sides. The patient also has tenderness in the lumbosacral area region. RIBS: There is tenderness in the right lower ribs area. LABORATORY AND TESTS: The patient had a CT of the lumbosacral shows residual arthropathy and degenerative joint disease, also sacroiliac joint osteoarthritis and a finding of right lower ribs fracture of the fourth rib, multiple rib fractures starting from the fourth rib. IMPRESSION AND PLAN: 1. Right-sided chest pain secondary to rib fractures. Continue Lidoderm. We will add Percocet p.r.n. every 6 hours. 2. Sacroiliitis and lumbosacral degenerative joint disease causing low back pain. We will give the patient muscle relaxant, physical therapy. We will also add Percocet for her pain. The patient will benefit from sacroiliac joint injections. 3. Hypertension, stable. Her blood pressure is stable. 4. Diabetes, insulin-dependent. Her blood sugars seems running better. We have increased insulin already. It is in 150-200 range. 5. Morbid obesity and obstructive sleep apnea. Continue continuous positive airway pressure aids. 6. Depression, schizophrenia, and schizoaffective disorders. The patient is currently on antipsychotic therapy by Dr. Montilla. She was given her anti-anxiety medications to calm her agitations including Ativan. She is also having antipsychotic therapy and mood stabilizer, Depakote 1500 mg daily and antidepressant mg at bedtime. We will continue also antipsychotic 50 mg t.i.d. p.r.n. 7. Hypercholesterolemia and hypertension, stable. Continue Lipitor. Continue Zestril and atenolol. Follow up clinically. Zana Mancera MD [facility] # [id number]
[2018-08-04 15:02] LABS: BASO # 0.03 K/mm3 (0.0-2.0); BASO % 0.5 % (0.0-3.0); EOS # 0.1 (0.0-0.7); EOS % 1.7 % (1.5-5.0); HEMOGLOBIN 12.9 g/dL (12.0-16.0); LYMPH % 31.3 % (22.0-35.0); MEAN CELL VOLUME 89.8 fl (80.0-105.0); MEAN CORPUSCULAR HEMOGLOBIN 29.9 pg (25.0-35.0); MEAN CORPUSCULAR HGB CONC 33.2 g/dl (31.0-37.0); MEAN PLATELET VOLUME 9.5 fl (7.0-11.0); MONO # 0.4 (0.1-0.6); MONO % 5.5 % (1.0-6.0); RBC 4.32 10^6/uL (3.5-6.1); WHITE BLOOD COUNT 6.4 10^3/uL (4.5-11.0)
[2018-08-04 15:03] LABS: ALB/GLOB RATIO 1.2 (1.1-1.8); ALBUMIN 3.8 g/dL (3.0-4.8); ALT/SGPT 7 U/L (7-56); AST/SGOT 14 U/L (14-36); BLOOD UREA NITROGEN 17 mg/dL (7-21); CALCIUM 9.6 mg/dL (8.4-10.5); GFR NON-AFRICAN AMERICAN > 60
[2018-08-04] MEDS: Alum-Mag Hydrox-Simethicone Susp (30 mL) PO PRN (19:08)
[2018-08-04] MEDS: Divalproex 500 mg ER (ONCE DAILY formulation) PO SCH (21:26)
[2018-08-04] MEDS: Insulin Detemir 100 units/ml Vial (Levemir) SC SCH (21:46)
[2018-08-05] MEDS: Mupirocin 2% Ointment 15 GM TUBE TOP SCH ×2 (09:08→18:16)
[2018-08-05] MEDS: Lidocaine 5% Patch TD SCH (09:13)
[2018-08-05] MEDS: Insulin Lispro 1 UNITS/0.01 ML SC SCH ×3 (09:21→18:20)
--- NOTE | 2018-08-05 09:40 | PCM.PYCHPN ---
Psychiatric Progress Note - Psychiatric Progress Note Patient seen today, length of contact: 30 minutes Problems Identified/Issues Discussed: I review assessment and recent notes. Patient was interviewed at bedside. She appears disheveled with constricted and apathetic affect. Responses are sup erficial and focus is poor. Patient appears internally preoccupied and reports still seeing visual hallucinations "out of the corner of my eye". She doesn't elaborate. Patient has been disorganized and withdrawn on the unit. Compliant with medications and continues to indicate that prolixin depot made her dizzy and led to her decompensation (though it was very likely to noncompliance). Presently she denies any new side effects from her current medications. There were no behavioral issues overnight however her impulse control is tenuous. Diagnostic Results: Schizoaffective disorder, bipolar type, most recent episode mixed Medication Change: Yes (decreased elavil) Medical Record Reviewed: Yes Mental Status Examination - Cognitive Function Orientation: Person, Place, Situation Memory: Impaired Attention: Poor Concentration: Poor Association: Loose Fund of Knowledge: Poor - Mood Mood: Depressed, Anxious - Affect Affect: Constricted, Flat - Formal Thought Process Formal Thought Process: Hallucinations, Delusions, Paranoia, Loosening of associations, Circumstantial - Suicidal Ideation Suicidal Ideation: No - Homicidal Ideation Homicidal Ideation: No Goal/Treatment Plan - Goal/Treatment Plan Need for Continued Stay: Remain at risks for inpatient hospitalization, Severe depression anxiety, Discharge may exacerbated symptoms, Severe functional impairment Progress Toward Problem(s) and Goals/Treatment Plan: * c/w current treatment and plan * Elavil decreased to 50 mg po HS, will continue to taper as tolerated * No new weekend lab results thus far * Vitals reviewed and noted below: Selected Entries 08/04/18 08/04/18 07:08 16:12 Temperature 98.1 F Pulse Rate 76 65 Respiratory 20 Rate Blood Pressure 117/75 118/74 Estimated Date of D/C: 08/11/18
[2018-08-05] MEDS: Fluticasone Nasal 50 mcg/Spray NS SCH (18:21)
[2018-08-05] MEDS: Divalproex 500 mg ER (ONCE DAILY formulation) PO SCH (21:21)
[2018-08-05] MEDS: Insulin Detemir 100 units/ml Vial (Levemir) SC SCH (21:27)
--- NOTE | 2018-08-05 23:45 | PN ---
DATE: 08/05/2018 SUBJECTIVE: The patient is comfortable. She is still complaining of back pain again. No new complaint. Her mood is the same. She had no hallucinations, does not seem to be anxious. PHYSICAL EXAMINATION VITAL SIGNS: Temperature 98.6, heart rate 68, blood pressure 108/66, and respirations 20. HEAD AND NECK: Normal. No JVD. No thyromegaly. CHEST: Clear bilateral. CARDIAC: First sound and second sound normal. No murmur, rub, or gallop. ABDOMEN: Obese. Nontender. EXTREMITIES: No edema. NEUROLOGICAL: Normal. IMPRESSION AND PLAN: 1. Schizophrenia or psychosis or paranoid disorder with paranoid ideations. The patient's mood is stable and though she seems to be on the depressed side. She is stable. Continue current therapy. She is on Elavil, Depakote, Thorazine p.r.n., Ativan p.r.n. 2. Rib fractures, chronic low back pain, osteoarthritis of the sacroiliac joint. Continue current medications, Lidoderm patch, Percocet p.r.n. Follow up clinically. 3. The patient also noted to have a stuffy nose and congestion. We will give her Flonase for her nasal spray and Motrin p.r.n. 4. Low blood pressure. The patient has a history of hypertension, on lisinopril 20 mg and atenolol 25 mg. Blood pressure seems running low. We will only reduce lisinopril to 10 mg, and we will continue to monitor her blood pressure. 5. Obesity and obstructive sleep apnea. Continue CPAP aids. 6. Insulin-dependent diabetes. Blood sugar running better. She is in 180 to 200 range. We will continue current therapy. We may increase the insulin regimen. PLAN: Continue current therapy and follow up clinically. Zana Mancera MD
--- NOTE | 2018-08-06 00:01 | PN ---
DATE: 08/04/2018 SUBJECTIVE: The patient is complaining of low back pain and knee pain and also right side ribs pain. The patient also seems not talkative, , little bit depressed, and she does not look happy and she is sleeping more. PHYSICAL EXAMINATION: VITAL SIGNS: Temperature 98, heart rate 65, blood pressure 117/75, and respirations 20. HEAD AND NECK: Normal. No JVD. No thyromegaly. CHEST: Clear bilaterally. CARDIAC: First sound and second sound normal. No murmur, rub, or gallop. ABDOMEN: Obese and nontender. EXTREMITIES: No edema. NEUROLOGIC: Normal except her back lumbosacral area is tender and her right lower extremity is tender. LABORATORY DATA: White count 6.4, hemoglobin 12.9, hematocrit 38.8, and platelet 174. Chemistry; sodium 139, potassium 5.1, chloride 102, bicarb 29, BUN 17, and creatinine 0.9. Blood sugar was 178. Liver function test is normal. IMPRESSION AND PLAN: 1. Right ribs area fracture as per CAT scan. We will continue Lidoderm patch. Percocet was prescribed, but that was held by Dr. Montilla because of little more confused. 2. Chronic low back pain, she has sacroiliac joint degenerative disease and lumbosacral area facet joint osteoarthritis. The patient is doing physical therapy. Continue current medications. 3. Depression, schizophrenia, and paranoid disorder. We will continue follow up with Dr. Montilla. The patient is getting antipsychotic and tranquilizers and then she is getting the Thorazine p.r.n. She also has been on Depakote 1500 mg daily and 50 mg Elavil at bedtime as needed. 4. Hypertension. The patient running low blood pressure. We will consider to decrease the dose of lisinopril. 5. Constipation, improved. Continue current medicines. 6. Tachycardia, hypertension. Continue Tenormin, Zestril. We will monitor blood pressures. 7. Diabetes. It is running in high 200s. It seems improving. Continue Levemir 45 units subcutaneous daily plus 4 units a.c. meals. Continue current therapy. Followup clinically. Zana Mancera MD
--- NOTE | 2018-08-06 09:12 | PCM.PYCHPN ---
Psychiatric Progress Note - Psychiatric Progress Note Patient seen today, length of contact: 30 minutes Problems Identified/Issues Discussed: I review recent notes and patient was interviewed at bedside. She still appears disheveled with constricted and flat affect. Focus is a little improved and she is more verbal today. Indicates that she remains depressed with poor appetite. Denies hallucinations today though reported "voices/noise in her head that impairs her concentration" to staff on Tuesday. She also told this provider that she saw visual hallucinations "out of the corner of my eye". Patient still seems preoccupied, vague and disorganized however her presentation is better than her last admission. Patient is compliant with medications on the unit. Continues to indicate that prolixin depot made her dizzy and led to her decompensation [employer] (though it was very likely to noncompliance as she consistently denied any s/e to this provider following the depot). Presently she denies any new side effects from her current medications. There were no behavioral issues overnight however her impulse control is tenuous. Diagnostic Results: Schizoaffective disorder, bipolar type, most recent episode mixed Medication Change: Yes (decreased elavil) Medical Record Reviewed: Yes Mental Status Examination - Cognitive Function Orientation: Person, Place, Situation Memory: Impaired Attention: Poor Concentration: Poor Association: Loose Fund of Knowledge: Poor - Mood Mood: Depressed, Anxious - Affect Affect: Constricted, Flat - Formal Thought Process Formal Thought Process: Hallucinations, Delusions, Paranoia, Loosening of associations, Circumstantial - Suicidal Ideation Suicidal Ideation: No - Homicidal Ideation Homicidal Ideation: No Goal/Treatment Plan - Goal/Treatment Plan Need for Continued Stay: Remain at risks for inpatient hospitalization, Severe depression anxiety, Discharge may exacerbated symptoms, Severe functional impairment Progress Toward Problem(s) and Goals/Treatment Plan: * c/w current treatment and plan * Appreciate f/u by Dr. Mancera on 08/05/18 * Elavil decreased to 50 mg po HS on 08/05/18, will continue to taper as tolerated * No new weekend lab results thus far * Vitals reviewed and noted below: Selected Entries 08/05/18 08/05/18 07:36 16:00 Temperature 98.3 F Pulse Rate 68 65 Respiratory 20 Rate Blood Pressure 108/66 160/72 H Estimated Date of D/C: 08/11/18
[2018-08-06] MEDS: Insulin Lispro 1 UNITS/0.01 ML SC SCH ×3 (09:18→16:58)
[2018-08-06] MEDS: Mupirocin 2% Ointment 15 GM TUBE TOP SCH ×2 (09:34→16:54)
[2018-08-06] MEDS: Fluticasone Nasal 50 mcg/Spray NS SCH (09:34)
[2018-08-06] MEDS: Lidocaine 5% Patch TD SCH (10:01)
[2018-08-06] MEDS: Divalproex 500 mg ER (ONCE DAILY formulation) PO SCH (21:11)
[2018-08-06] MEDS: Insulin Detemir 100 units/ml Vial (Levemir) SC SCH (22:47)
[2018-08-07] MEDS: Lidocaine 5% Patch TD SCH (08:22)
[2018-08-07] MEDS: Insulin Lispro 1 UNITS/0.01 ML SC SCH ×3 (08:24→17:14)
[2018-08-07] MEDS: Mupirocin 2% Ointment 15 GM TUBE TOP SCH ×2 (10:29→17:14)
[2018-08-07] MEDS: Fluticasone Nasal 50 mcg/Spray NS SCH (10:29)
--- NOTE | 2018-08-07 16:21 | PCM.PYCHPN ---
Psychiatric Progress Note - Psychiatric Progress Note Patient seen today, length of contact: 30 minutes Patient Chief Complaint: "I do not want to be on Thorazine, I was responding well on Abilify, please resume Abilify for me" Problems Identified/Issues Discussed: the treatment plan was discussed with the patient, risk/benefits/alternatives of Abilify discussed. Medical Problems: See HPI Diagnostic Results: 08/01/18 15:04 08/01/18 15:04 Lab Results 08/03/18 11:17: POC Glucose (mg/dL) 223 H 08/03/18 07:42: POC Glucose (mg/dL) 203 H 08/02/18 20:55: POC Glucose (mg/dL) 280 H 08/02/18 16:10: POC Glucose (mg/dL) 173 H 08/02/18 11:22: POC Glucose (mg/dL) 168 H 08/02/18 07:30: RPR Nonreactive 08/02/18 07:30: Valproic Acid 61 08/02/18 07:30: TSH 3rd Generation 2.13 08/02/18 07:30: Triglycerides 250 H, Cholesterol 188, LDL Cholesterol Direct 113, HDL Cholesterol 39 08/02/18 07:24: POC Glucose (mg/dL) 203 H 08/01/18 20:49: POC Glucose (mg/dL) 220 H 08/01/18 19:30: Urine Color Light yellow, Urine Appearance Clear, Urine pH 6.5, Ur Specific [place] 1.010, Urine Protein Negative, Urine Glucose (UA) >=1000, Urine Ketones Negative, Urine Blood Negative, Urine Nitrate Negative, Urine Bilirubin Negative, Urine Urobilinogen 0.2, Ur Leukocyte Esterase Trace H, Urine RBC None, Urine WBC 0 - 2, Ur Epithelial Cells 0 - 2 08/01/18 15:04: Acetaminophen < 10.0 L 08/01/18 15:04: Free T4 1.22, TSH 3rd Generation 0.95, Alcohol, Quantitative < 10 08/01/18 15:04: Urine Opiates Screen Negative, Urine Methadone Screen Negative, Ur Barbiturates Screen Negative, Ur Phencyclidine Scrn Negative, Ur Amphetamines Screen Negative, U Benzodiazepines Scrn Negative, U Oth Cocaine Metabols Negative, U Cannabinoids Screen Negative 08/01/18 15:04: Sodium 139, Potassium 4.6, Chloride 100, Carbon Dioxide 29, Anion Gap 14, BUN 14, Creatinine 0.7, Est GFR ( Amer) > 60, Est GFR (Non- Af Amer) > 60, Random Glucose 271 H, Calcium 9.6, Total Bilirubin 0.2, AST 18, ALT 10, Alkaline Phosphatase 100, Total Protein 7.1, Albumin 3.8, Globulin 3.3, Albumin/Globulin Ratio 1.1 08/01/18 15:04: WBC 5.9, RBC 4.46, Hgb 13.0, Hct 39.4, MCV 88.3, MCH 29.1, MCHC 33.0, RDW 14.4, Plt Count 172, MPV 9.1, Neut % (Auto) 68.9 H, Lymph % (Auto) 26.2, [place] % (Auto) 4.2, Eos % (Auto) 0.5 L, Baso % (Auto) 0.2, Lymph # (Auto) 1.6, [place] # (Auto) 0.3, Eos # (Auto) 0.0, Baso # (Auto) 0.01, Absolute Neuts (auto) 4.07 Vital Signs Temp Pulse Pulse Resp BP Pulse Ox 08/03/18 09:01 110/65 08/03/18 08:23 83 110/65 08/03/18 07:19 98.0 F 83 20 110/65 08/02/18 16:00 105 H 127/84 08/02/18 08:15 86 132/81 08/02/18 08:14 132/81 08/02/18 07:00 98.1 F 86 20 132/81 08/01/18 22:17 91 H 18 08/01/18 17:30 78 18 148/88 98 08/01/18 15:00 88 18 148/76 99 08/01/18 12:47 98.0 F 105 H 16 145/89 96 DSM 5 Symptoms Update: Patient is 57 year old Female, reported h/o schizoaffective disorder, multiple psychiatric [place] most [place] [facility] [place], likely noncompliant with prescribed psychiatric medications, who presented to the our ER with complaints of "side effect from Prolixin shot", as well as depression and anxiety, pt noted to be disorganized with prominent negative symptoms. Patient was seen today at the treatment team meeting, poor hygiene, patient is less confused, was able to verbalize that she wants Thorazine to be discontinued and she wants to be on Abilify. As per staff report patient has periods of confusion, disorganized thoughts, accusing staff about medications. There is some positive changes with patient presentation, patient is less irritable, less angry, less paranoid. Patient denied any problems to fall asleep or to stay asleep, reported that she has fair appetite. So far patient tolerates medications well, no side effects observed or reported, aims 0, no EPS. Impression: Schizoaffective disorder, bipolar type, most recent episode mixed Medication Change: Yes (Abilify started, Thorazine discontinued) Medical Record Reviewed: Yes Consults ordered or reviewed: Consultation appreciated, patient was seen by primary care physician Dr. Mancera Mental Status Examination - Cognitive Function Orientation: Person, Place, Situation Memory: Impaired Attention: Poor Concentration: Poor Association: Loose Fund of Knowledge: Poor - Mood Mood: Depressed, Anxious - Affect Affect: Constricted, Flat - Formal Thought Process Formal Thought Process: Hallucinations, Delusions, Paranoia, Loosening of associations, Circumstantial - Suicidal Ideation Suicidal Ideation: No - Homicidal Ideation Homicidal Ideation: No Goal/Treatment Plan - Goal/Treatment Plan Need for Continued Stay: Remain at risks for inpatient hospitalization, Severe depression anxiety, Discharge may exacerbated symptoms, Severe functional impairment Progress Toward Problem(s) and Goals/Treatment Plan: Milieu/structure/supportive therapy SW consultation for discharge plan and social issues Med management: Family involvement Follow up on labs Will monitor closely Pt was educated about risk/benefits and alternatives of medications, coping strategies (safety plan, suicide prevention), relapse prevention, importance of follow up with psychiatrist and therapist, stay away from drugs/alcohol/smoking Prescriptions/Medication Reconciliation from last admission: fluPHENAZine Decanoate was given 07/14/2018, next dose is due August 11 but patient does not want to continue on that medication Amitriptyline [Elavil] was decreased to 50 mg at the nighttime, plan to wean it off Benztropine [Cogentin] 1 mg PO DAILY Ativan 1 mg twice daily as needed for anxiety Divalproex [Depakote ER(ONCE DAILY)] 1,500 mg PO HS for mood stabilization Thorazine discontinued Abilify 5 mg daily started for psychosis Estimated Date of D/C: 08/11/18
[2018-08-07] MEDS: Insulin Detemir 100 units/ml Vial (Levemir) SC SCH (21:03)
[2018-08-07] MEDS: Divalproex 500 mg ER (ONCE DAILY formulation) PO SCH (21:08)
[2018-08-08] MEDS: Insulin Lispro 1 UNITS/0.01 ML SC SCH ×3 (09:54→17:05)
[2018-08-08] MEDS: Fluticasone Nasal 50 mcg/Spray NS SCH (09:55)
[2018-08-08] MEDS: Mupirocin 2% Ointment 15 GM TUBE TOP SCH ×2 (09:55→17:06)
--- NOTE | 2018-08-08 11:23 | PN ---
DATE: 08/07/2018 SUBJECTIVE: The patient is in psych floor. The patient seems stable. She does complaining of low back pain, knee arthritis, has no other complaints. The patient has a good bowel movement. She has no nausea, no vomiting, no abdominal pain. Breathing comfortably. PHYSICAL EXAMINATION: VITAL SIGNS: Temperature 98, heart rate 75, blood pressure 97/64, respirations 17. HEAD AND NECK: Normal. No JVD. No thyromegaly. CHEST: Clear bilaterally. CARDIAC: First sound and second sound normal. No murmur, rub, or gallop. ABDOMEN: Obese, nontender. EXTREMITIES: Slight edema. NEUROLOGIC: Normal. LABORATORY DATA: Blood sugar in the 100 to 200 range. IMPRESSION AND PLAN: 1. Bipolar disorder. The patient has atypical antipsychotic Abilify [address] Montilla continue Thorazine, Ativan p.r.n. The patient is stable. She is also getting Depakote 1500 mg p.o. at bedtime and diabetes is control, continue insulin, Levemir and short-acting insulin. 2. Morbid obesity and obstructive sleep apnea. Continue continuous positive airway pressure aids. 3. Hypercholesterolemia. 4. Hypertension. I decreased blood pressure controlling to 10. Monitor blood pressure on daily basis. . Continue monitoring blood pressure. Continue current medications. Followup clinically. Zana Mancera MD
--- NOTE | 2018-08-08 14:13 | PCM.PYCHPN ---
Psychiatric Progress Note - Psychiatric Progress Note Patient seen today, length of contact: 30 minutes Patient Chief Complaint: "I feel little better.." Problems Identified/Issues Discussed: the treatment plan was discussed with the patient, symptoms, risk/benefits/a lternatives of Abilify discussed. Medical Problems: See HPI Diagnostic Results: 08/01/18 15:04 08/01/18 15:04 Lab Results 08/03/18 11:17: POC Glucose (mg/dL) 223 H 08/03/18 07:42: POC Glucose (mg/dL) 203 H 08/02/18 20:55: POC Glucose (mg/dL) 280 H 08/02/18 16:10: POC Glucose (mg/dL) 173 H 08/02/18 11:22: POC Glucose (mg/dL) 168 H 08/02/18 07:30: RPR Nonreactive 08/02/18 07:30: Valproic Acid 61 08/02/18 07:30: TSH 3rd Generation 2.13 08/02/18 07:30: Triglycerides 250 H, Cholesterol 188, LDL Cholesterol Direct 113, HDL Cholesterol 39 08/02/18 07:24: POC Glucose (mg/dL) 203 H 08/01/18 20:49: POC Glucose (mg/dL) 220 H 08/01/18 19:30: Urine Color Light yellow, Urine Appearance Clear, Urine pH 6.5, Ur Specific [place] 1.010, Urine Protein Negative, Urine Glucose (UA) >=1000, Urine Ketones Negative, Urine Blood Negative, Urine Nitrate Negative, Urine Bilirubin Negative, Urine Urobilinogen 0.2, Ur Leukocyte Esterase Trace H, Urine RBC None, Urine WBC 0 - 2, Ur Epithelial Cells 0 - 2 08/01/18 15:04: Acetaminophen < 10.0 L 08/01/18 15:04: Free T4 1.22, TSH 3rd Generation 0.95, Alcohol, Quantitative < 10 08/01/18 15:04: Urine Opiates Screen Negative, Urine Methadone Screen Negative, Ur Barbiturates Screen Negative, Ur Phencyclidine Scrn Negative, Ur Amphetamines Screen Negative, U Benzodiazepines Scrn Negative, U Oth Cocaine Metabols Negative, U Cannabinoids Screen Negative 08/01/18 15:04: Sodium 139, Potassium 4.6, Chloride 100, Carbon Dioxide 29, Anion Gap 14, BUN 14, Creatinine 0.7, Est GFR ( Amer) > 60, Est GFR (Non- Af Amer) > 60, Random Glucose 271 H, Calcium 9.6, Total Bilirubin 0.2, AST 18, ALT 10, Alkaline Phosphatase 100, Total Protein 7.1, Albumin 3.8, Globulin 3.3, Albumin/Globulin Ratio 1.1 08/01/18 15:04: WBC 5.9, RBC 4.46, Hgb 13.0, Hct 39.4, MCV 88.3, MCH 29.1, MCHC 33.0, RDW 14.4, Plt Count 172, MPV 9.1, Neut % (Auto) 68.9 H, Lymph % (Auto) 26.2, [place] % (Auto) 4.2, Eos % (Auto) 0.5 L, Baso % (Auto) 0.2, Lymph # (Auto) 1.6, [place] # (Auto) 0.3, Eos # (Auto) 0.0, Baso # (Auto) 0.01, Absolute Neuts (auto) 4.07 Vital Signs Temp Pulse Pulse Resp BP Pulse Ox 08/03/18 09:01 110/65 08/03/18 08:23 83 110/65 08/03/18 07:19 98.0 F 83 20 110/65 08/02/18 16:00 105 H 127/84 08/02/18 08:15 86 132/81 08/02/18 08:14 132/81 08/02/18 07:00 98.1 F 86 20 132/81 08/01/18 22:17 91 H 18 08/01/18 17:30 78 18 148/88 98 08/01/18 15:00 88 18 148/76 99 08/01/18 12:47 98.0 F 105 H 16 145/89 96 DSM 5 Symptoms Update: Patient is 57 year old Female, reported h/o schizoaffective disorder, [place] [facility] [place], likely noncompliant with prescribed psychiatric medications, who presented to the our ER with complaints of "side effect from Prolixin shot", as well as depression and anxiety, pt noted to be disorganized with prominent negative symptoms. Patient was seen today at the [facility] area, patient presented somewhat better, speech was more coherent despite the fact that patient has difficulties to express herself at times, poor hygiene, patient is less confused, patient said that she feels little bit better on Abilify, patient reported that she was on 30 mg of Abilify in the past. Patient is aware of her plan to slowly titrate up Abilify. As per staff report patient has periods of confusion, disorganized thoughts, irritability, angry outbursts. There is some positive changes with patient presentation, patient is less irritable, less angry, less paranoid. Patient denied any problems to fall asleep or to stay asleep, reported that she has fair appetite. So far patient tolerates medications well, no side effects observed or reported, aims 0, no EPS. Impression: Schizoaffective disorder, bipolar type, most recent episode mixed Medication Change: Yes (Abilify started, Thorazine discontinued) Medical Record Reviewed: Yes Consults ordered or reviewed: Consultation appreciated, patient was seen by primary care physician Dr. Mancera Mental Status Examination - Cognitive Function Orientation: Person, Place, Situation Memory: Impaired Attention: Poor Concentration: Poor Association: Loose Fund of Knowledge: Poor - Mood Mood: Depressed, Anxious - Affect Affect: Constricted, Flat - Formal Thought Process Formal Thought Process: Hallucinations, Delusions, Paranoia, Loosening of associations, Circumstantial - Suicidal Ideation Suicidal Ideation: No - Homicidal Ideation Homicidal Ideation: No Goal/Treatment Plan - Goal/Treatment Plan Need for Continued Stay: Remain at risks for inpatient hospitalization, Severe depression anxiety, Discharge may exacerbated symptoms, Severe functional impairment Progress Toward Problem(s) and Goals/Treatment Plan: Milieu/structure/supportive therapy SW consultation for discharge plan and social issues Med management: Family involvement Follow up on labs Will monitor closely Pt was educated about risk/benefits and alternatives of medications, coping strategies (safety plan, suicide prevention), relapse prevention, importance of follow up with psychiatrist and therapist, stay away from drugs/alcohol/smoking fluPHENAZine Decanoate was given 07/14/2018, next dose is due August 11 but patient does not want to continue on that medication Amitriptyline [Elavil] 50 mg at the nighttime, plan to wean it off Benztropine [Cogentin] 1 mg PO DAILY Ativan 1 mg twice daily as needed for anxiety Divalproex [Depakote ER(ONCE DAILY)] 1,500 mg PO HS for mood stabilization Thorazine discontinued abilify 5mg po amhs for psychosis Estimated Date of D/C: 08/11/18
[2018-08-08] MEDS: Lidocaine 5% Patch TD SCH (14:28)
[2018-08-08] MEDS: Divalproex 500 mg ER (ONCE DAILY formulation) PO SCH (21:01)
[2018-08-08] MEDS: Insulin Detemir 100 units/ml Vial (Levemir) SC SCH (21:11)
[2018-08-08] MEDS: Alum-Mag Hydrox-Simethicone Susp (30 mL) PO PRN (23:47)
[2018-08-09] MEDS: Insulin Lispro 1 UNITS/0.01 ML SC SCH ×3 (08:24→17:26)
[2018-08-09] MEDS: Mupirocin 2% Ointment 15 GM TUBE TOP SCH ×2 (08:24→17:09)
[2018-08-09] MEDS: Fluticasone Nasal 50 mcg/Spray NS SCH (08:25)
[2018-08-09] MEDS: Lidocaine 5% Patch TD SCH (15:01)
--- NOTE | 2018-08-09 15:07 | PCM.PYCHPN ---
Psychiatric Progress Note - Psychiatric Progress Note Patient seen today, length of contact: 30 minutes Patient Chief Complaint: "I feel better" Problems Identified/Issues Discussed: the treatment plan was discussed with the patient, symptoms, risk/benefits/alternatives of Abilify discussed. Medical Problems: See HPI Diagnostic Results: 08/01/18 15:04 08/01/18 15:04 Lab Results 08/03/18 11:17: POC Glucose (mg/dL) 223 H 08/03/18 07:42: POC Glucose (mg/dL) 203 H 08/02/18 20:55: POC Glucose (mg/dL) 280 H 08/02/18 16:10: POC Glucose (mg/dL) 173 H 08/02/18 11:22: POC Glucose (mg/dL) 168 H 08/02/18 07:30: RPR Nonreactive 08/02/18 07:30: Valproic Acid 61 08/02/18 07:30: TSH 3rd Generation 2.13 08/02/18 07:30: Triglycerides 250 H, Cholesterol 188, LDL Cholesterol Direct 113, HDL Cholesterol 39 08/02/18 07:24: POC Glucose (mg/dL) 203 H 08/01/18 20:49: POC Glucose (mg/dL) 220 H 08/01/18 19:30: Urine Color Light yellow, Urine Appearance Clear, Urine pH 6.5, Ur Specific [place] 1.010, Urine Protein Negative, Urine Glucose (UA) >=1000, Urine Ketones Negative, Urine Blood Negative, Urine Nitrate Negative, Urine Bilirubin Negative, Urine Urobilinogen 0.2, Ur Leukocyte Esterase Trace H, Urine RBC None, Urine WBC 0 - 2, Ur Epithelial Cells 0 - 2 08/01/18 15:04: Acetaminophen < 10.0 L 08/01/18 15:04: Free T4 1.22, TSH 3rd Generation 0.95, Alcohol, Quantitative < 10 08/01/18 15:04: Urine Opiates Screen Negative, Urine Methadone Screen Negative, Ur Barbiturates Screen Negative, Ur Phencyclidine Scrn Negative, Ur Amphetamines Screen Negative, U Benzodiazepines Scrn Negative, U Oth Cocaine Metabols Negative, U Cannabinoids Screen Negative 08/01/18 15:04: Sodium 139, Potassium 4.6, Chloride 100, Carbon Dioxide 29, Anion Gap 14, BUN 14, Creatinine 0.7, Est GFR ( Amer) > 60, Est GFR (Non- Af Amer) > 60, Random Glucose 271 H, Calcium 9.6, Total Bilirubin 0.2, AST 18, ALT 10, Alkaline Phosphatase 100, Total Protein 7.1, Albumin 3.8, Globulin 3.3, Albumin/Globulin Ratio 1.1 08/01/18 15:04: WBC 5.9, RBC 4.46, Hgb 13.0, Hct 39.4, MCV 88.3, MCH 29.1, MCHC 33.0, RDW 14.4, Plt Count 172, MPV 9.1, Neut % (Auto) 68.9 H, Lymph % (Auto) 26 .2, [place] % (Auto) 4.2, Eos % (Auto) 0.5 L, Baso % (Auto) 0.2, Lymph # (Auto) 1.6, [place] # (Auto) 0.3, Eos # (Auto) 0.0, Baso # (Auto) 0.01, Absolute Neuts (auto) 4.07 Vital Signs Temp Pulse Pulse Resp BP Pulse Ox 08/03/18 09:01 110/65 08/03/18 08:23 83 110/65 08/03/18 07:19 98.0 F 83 20 110/65 08/02/18 16:00 105 H 127/84 08/02/18 08:15 86 132/81 08/02/18 08:14 132/81 08/02/18 07:00 98.1 F 86 20 132/81 08/01/18 22:17 91 H 18 08/01/18 17:30 78 18 148/88 98 08/01/18 15:00 88 18 148/76 99 08/01/18 12:47 98.0 F 105 H 16 145/89 96 DSM 5 Symptoms Update: Patient is 57 year old Female, reported h/o schizoaffective disorder, multiple psychiatric admissions most recently at [facility] [place] 06/27, likely noncompliant with prescribed psychiatric medications, who presented to the our ER with complaints of "side effect from Prolixin shot", as well as depression and anxiety, pt noted to be disorganized with prominent negative symptoms. Patient was seen today at the [facility] area, patient presented the same way, diso rganized, was looking for her son, as per report patient was hearing voices, appears to be internally preoccupied and very anxious. Patient is aware of her medications, patient is willing to increase the dose of Abilify to 10 mg in the morning time and 5 mg at the nighttime, patient appears to be anxious, patient was on Klonopin in the past, will implement 0.5 mg Klonopin twice a day and 1 mg at the nighttime. As per report patient was not able to fall asleep and staying asleep, Klonopin HS might be helpful. As per staff report patient has periods of confusion, disorganized thoughts, irritability, angry outbursts. There is some positive changes with patient presentation, patient is less irritable, less angry, less paranoid. Patient denied any problems to fall asleep or to stay asleep, reported that she has fair appetite. So far patient tolerates medications well, no side effects observed or reported, aims 0, no EPS. Impression: Schizoaffective disorder, bipolar type, most recent episode mixed Medication Change: Yes (Abilify increased, klonopin started) Medical Record Reviewed: Yes Mental Status Examination - Cognitive Function Orientation: Person, Place, Situation Memory: Impaired Attention: Poor Concentration: Poor Association: Loose Fund of Knowledge: Poor - Mood Mood: Depressed, Anxious - Affect Affect: Constricted, Flat - Formal Thought Process Formal Thought Process: Hallucinations, Delusions, Paranoia, Loosening of associations, Circumstantial - Suicidal Ideation Suicidal Ideation: No - Homicidal Ideation Homicidal Ideation: No Goal/Treatment Plan - Goal/Treatment Plan Need for Continued Stay: Remain at risks for inpatient hospitalization, Severe depression anxiety, Discharge may exacerbated symptoms, Severe functional impairment Progress Toward Problem(s) and Goals/Treatment Plan: Milieu/structure/supportive therapy SW consultation for discharge plan and social issues Med management: Family involvement Follow up on labs Will monitor closely Pt was educated about risk/benefits and alternatives of medications, coping strategies (safety plan, suicide prevention), relapse prevention, importance of follow up with psychiatrist and therapist, stay away from drugs/alcohol/smoking fluPHENAZine Decanoate was given 07/14/2018, next dose is due August 11 but patient does not want to continue on that medication Amitriptyline [Elavil] 50 mg at the nighttime, plan to wean it off Benztropine [Cogentin] 1 mg PO DAILY Klonopin 0.5 mg twice a day and 1 mg at night time Divalproex [Depakote ER(ONCE DAILY)] 1,500 mg PO HS for mood stabilization Thorazine discontinued abilify 10mg po am 5mg hs for psychosis Estimated Date of D/C: 08/14/18
--- NOTE | 2018-08-09 20:12 | PN ---
DATE: 08/08/2018 SUBJECTIVE: The patient is in the Psychiatry floor. She has no new complaints except the low back pain. She is supposed to be on Percocet but it is on hold for now. We may need to change it. Otherwise, no complaints. PHYSICAL EXAMINATION: VITAL SIGNS: Temperature 97.3, heart rate 73, blood pressure 120/82, respirations 20. HEAD AND NECK: Normal. No JVD. No thyromegaly. CHEST: Clear bilaterally. CARDIAC: First sound and second sound normal. ABDOMEN: Obese, nontender. EXTREMITIES: No edema. NEUROLOGICAL: Normal. LABORATORY DATA: White count 6.4, hemoglobin 12.9, hematocrit 38.8, platelets 174. Chemistry: Sodium 139, potassium 4.1, chloride 102, bicarbonate 29, BUN 17, creatinine 0.9, blood sugar is 178. Liver function test is normal. Urine analysis is normal. IMPRESSION AND PLAN: 1. History of bipolar disorder but no evidence of schizoaffective disorders. Continue current psychiatric treatment. She is on Abilify 5 mg in the morning and at bedtime, Cogentin, Depakote 1500 mg, Elavil 50 mg and Thorazine p.r.n. 2. Chronic neck pain. She is on Lidoderm patch and Lyrica. We will see how the patient is doing. 3. Chronic constipation; on Senokot. She is doing well. 4. Hypertension. We will decrease Zestril to 10 mg, blood pressure is stable. Continue Tenormin 25 mg p.o. daily. The patient has obstructive sleep apnea. Continue bilevel positive airway pressure at 18 . 5. Chronic back pain. Chronic osteoarthritis in sacroiliac joint and lumbosacral area. Continue physical therapy. We will consider maybe Tylenol No. 3 if okay with the psychiatrist. Tramadol will be a problem especially with the patient taking Elavil and interaction. Will hold off the Tramadol for now. Continue current therapy. Zana Mancera MD
[2018-08-09] MEDS: Divalproex 500 mg ER (ONCE DAILY formulation) PO SCH (21:27)
[2018-08-09] MEDS: Insulin Detemir 100 units/ml Vial (Levemir) SC SCH (22:48)
--- NOTE | 2018-08-10 08:23 | PN ---
DATE: 08/09/2018 SUBJECTIVE: The patient is a 57-year-old female who has been on the Psychiatry floor. She is still unsteady. She still has had according to her situation and sometimes she feels down. The patient otherwise is stable. She also is seen by . PHYSICAL EXAMINATION: GENERAL: . VITAL SIGNS: . HEAD AND NECK: Normal. No JVD. No thyromegaly. CHEST: Clear bilaterally. CARDIAC: First sound and second sound normal. No murmur, rub, or gallop. ABDOMEN: Soft, obese, and nontender. EXTREMITIES: No edema. NEUROLOGIC: Normal. LABORATORY DATA: No labs were done and blood sugar running in the range of 100 to 150. IMPRESSION AND PLAN: 1. Bipolar disorder. Continue Abilify, Cogentin, Depakote, Phenergan, clonidine, and Thorazine p.r.n. 2. Hypertension. Blood pressure is stable. . 3. pain. Continue Lidoderm patch. Continue Tylenol p.r.n. and Lyrica. 4. Hyperglycemia. History of leg edema. Continue Lasix 20 mg p.o. daily. Continue current therapy and followup clinically in the psychiatrist's. Zana Mancera MD
[2018-08-10] MEDS: Insulin Lispro 1 UNITS/0.01 ML SC SCH ×3 (08:43→17:52)
[2018-08-10] MEDS: Lidocaine 5% Patch TD SCH (08:51)
[2018-08-10] MEDS: Fluticasone Nasal 50 mcg/Spray NS SCH (08:51)
[2018-08-10] MEDS: Mupirocin 2% Ointment 15 GM TUBE TOP SCH ×2 (09:41→15:41)
--- NOTE | 2018-08-10 15:30 | PCM.PYCHPN ---
Psychiatric Progress Note - Psychiatric Progress Note Patient seen today, length of contact: 30 minutes Patient Chief Complaint: "I feel better" Problems Identified/Issues Discussed: the treatment plan was discussed with the patient, symptoms, risk/benefits/alternatives of Abilify discussed. Medical Problems: See HPI Diagnostic Results: 08/01/18 15:04 08/01/18 15:04 Lab Results 08/03/18 11:17: POC Glucose (mg/dL) 223 H 08/03/18 07:42: POC Glucose (mg/dL) 203 H 08/02/18 20:55: POC Glucose (mg/dL) 280 H 08/02/18 16:10: POC Glucose (mg/dL) 173 H 08/02/18 11:22: POC Glucose (mg/dL) 168 H 08/02/18 07:30: RPR Nonreactive 08/02/18 07:30: Valproic Acid 61 08/02/18 07:30: TSH 3rd Generation 2.13 08/02/18 07:30: Triglycerides 250 H, Cholesterol 188, LDL Cholesterol Direct 113, HDL Cholesterol 39 08/02/18 07:24: POC Glucose (mg/dL) 203 H 08/01/18 20:49: POC Glucose (mg/dL) 220 H 08/01/18 19:30: Urine Color Light yellow, Urine Appearance Clear, Urine pH 6.5, Ur Specific [place] 1.010, Urine Protein Negative, Urine Glucose (UA) >=1000, Urine Ketones Negative, Urine Blood Negative, Urine Nitrate Negative, Urine Bilirubin Negative, Urine Urobilinogen 0.2, Ur Leukocyte Esterase Trace H, Urine RBC None, Urine WBC 0 - 2, Ur Epithelial Cells 0 - 2 08/01/18 15:04: Acetaminophen < 10.0 L 08/01/18 15:04: Free T4 1.22, TSH 3rd Generation 0.95, Alcohol, Quantitative < 10 08/01/18 15:04: Urine Opiates Screen Negative, Urine Methadone Screen Negative, Ur Barbiturates Screen Negative, Ur Phencyclidine Scrn Negative, Ur Amphetamines Screen Negative, U Benzodiazepines Scrn Negative, U Oth Cocaine Metabols Negative, U Cannabinoids Screen Negative 08/01/18 15:04: Sodium 139, Potassium 4.6, Chloride 100, Carbon Dioxide 29, Anion Gap 14, BUN 14, Creatinine 0.7, Est GFR ( Amer) > 60, Est GFR (Non- Af Amer) > 60, Random Glucose 271 H, Calcium 9.6, Total Bilirubin 0.2, AST 18, ALT 10, Alkaline Phosphatase 100, Total Protein 7.1, Albumin 3.8, Globulin 3.3, Albumin/Globulin Ratio 1.1 08/01/18 15:04: WBC 5.9, RBC 4.46, Hgb 13.0, Hct 39.4, MCV 88.3, MCH 29.1, MCHC 33.0, RDW 14.4, Plt Count 172, MPV 9.1, Neut % (Auto) 68.9 H, Lymph % (Auto) 26 .2, [place] % (Auto) 4.2, Eos % (Auto) 0.5 L, Baso % (Auto) 0.2, Lymph # (Auto) 1.6, [place] # (Auto) 0.3, Eos # (Auto) 0.0, Baso # (Auto) 0.01, Absolute Neuts (auto) 4.07 Vital Signs Temp Pulse Pulse Resp BP Pulse Ox 08/03/18 09:01 110/65 08/03/18 08:23 83 110/65 08/03/18 07:19 98.0 F 83 20 110/65 08/02/18 16:00 105 H 127/84 08/02/18 08:15 86 132/81 08/02/18 08:14 132/81 08/02/18 07:00 98.1 F 86 20 132/81 08/01/18 22:17 91 H 18 08/01/18 17:30 78 18 148/88 98 08/01/18 15:00 88 18 148/76 99 08/01/18 12:47 98.0 F 105 H 16 145/89 96 DSM 5 Symptoms Update: Patient is 57 year old Female, reported h/o schizoaffective disorder, multiple psychiatric admissions most recently at [facility] 06/27, likely noncompliant with prescribed psychiatric medications, who presented to the our ER with complaints of "side effect from Prolixin shot", as well as depression and anxiety, pt noted to be disorganized with prominent negative symptoms. Patient was [place] today at [place] area, patient presented calm, but still disorga nized, was convinced that her son visited her and now she has cancer, no visit by her son, pt was not diagnosed with cancer. discussed with today. As per staff report patient has periods of confusion, disorganized thoughts, irritability, angry outbursts. There is some positive changes with patient presentation, patient is less irritable, less angry, less paranoid. Patient denied any problems to fall asleep or to stay asleep, reported that she has fair appetite. So far patient tolerates medications well, no side effects observed or reported, aims 0, no EPS. Impression: Schizoaffective disorder, bipolar type, most recent episode mixed Medication Change: Yes (Abilify increased) Medical Record Reviewed: Yes Mental Status Examination - Cognitive Function Orientation: Person, Place, Situation Memory: Impaired Attention: Poor Concentration: Poor Association: Loose Fund of Knowledge: Poor - Mood Mood: Depressed, Anxious - Affect Affect: Constricted, Flat - Formal Thought Process Formal Thought Process: Hallucinations, Delusions, Paranoia, Loosening of associations, Circumstantial - Suicidal Ideation Suicidal Ideation: No - Homicidal Ideation Homicidal Ideation: No Goal/Treatment Plan - Goal/Treatment Plan Need for Continued Stay: Remain at risks for inpatient hospitalization, Severe depression anxiety, Discharge may exacerbated symptoms, Severe functional impairment Progress Toward Problem(s) and Goals/Treatment Plan: Milieu/structure/supportive therapy SW consultation for discharge plan and social issues Med management: Family involvement Follow up on labs Will monitor closely Pt was educated about risk/benefits and alternatives of medications, coping strategies (safety plan, suicide prevention), relapse prevention, importance of follow up with psychiatrist and therapist, stay away from drugs/alcohol/smoking fluPHENAZine Decanoate was given 07/14/2018, next dose is due August 11 but patient does not want to continue on that medication Amitriptyline discontinued 08/10/18 Benztropine [Cogentin] 1 mg PO DAILY Klonopin 0.5 mg twice a day and 1 mg at night time Divalproex [Depakote ER(ONCE DAILY)] 1,500 mg PO HS for mood stabilization Thorazine discontinued abilify 10mg po am 10mg hs for psychosis Lebeau 5 mg Estimated Date of D/C: 08/14/18
[2018-08-10] MEDS: Divalproex 500 mg ER (ONCE DAILY formulation) PO SCH (21:44)
[2018-08-10] MEDS: Insulin Detemir 100 units/ml Vial (Levemir) SC SCH (21:44)
[2018-08-11] MEDS: Alum-Mag Hydrox-Simethicone Susp (30 mL) PO PRN (01:35)
[2018-08-11] MEDS: Insulin Lispro 1 UNITS/0.01 ML SC SCH ×3 (09:11→17:31)
[2018-08-11] MEDS: Mupirocin 2% Ointment 15 GM TUBE TOP SCH ×2 (09:18→15:35)
[2018-08-11] MEDS: Fluticasone Nasal 50 mcg/Spray NS SCH (09:21)
[2018-08-11] MEDS: Lidocaine 5% Patch TD SCH (09:21)
[2018-08-11] MEDS ORDERED: TraMADol/Apap 37.5/325 mg Tab PO PRN (11:47)
--- NOTE | 2018-08-11 12:04 | PCM.BM ---
<Alida Meeks Y - Last Filed: 08/11/18 12:04> Treatment Plan Problems - Problems identified on initial assessmt Auditory hallucinations Date Initiated: 08/01/18 Time Initiated: 23:01 Assessment reference: NA Status: Active Altered thought process Date Initiated: 08/01/18 Time Initiated: 23:01 Assessment reference: NA Status: Active Ineffective coping Date Initiated: 08/01/18 Time Initiated: 23:01 Assessment reference: NA Status: Active Treatment assets and liabiliti Patient Assests: adapts well, cooperative, educated, motivated, ADL independent, negotiates basic needs Patient Liabilities: live alone, physical pain, medical problems, imparied memory - Milieu Protocol Maintain good personal hygiene: daily Encourage regular showers, daily Remind patient to perform daily oral care, daily Assist patient to perform ADL's Conduct patient checks and document Observation sheet: Q15 minutes Maintain personal safety: daily Educate patient to report safety concerns to staff, every shift Monitor environment for contraband/sharps Medication safety: Monitor for expected outcome, potential side effects: every shift, Assess barriers to learning: every shift, Assess readiness for medication education: every shift Milieu Narrative: Milieu/structure/supportive therapy SW consultation for discharge plan and social issues Med management: Family involvement Follow up on labs Will monitor closely Pt was educated about risk/benefits and alternatives of medications, coping strategies (safety plan, suicide prevention), relapse prevention, importance of follow up with psychiatrist and therapist, stay away from drugs/alcohol/smoking fluPHENAZine Decanoate was given 07/14/2018, next dose is due August 11 but patient does not want to continue on that medication Amitriptyline discontinued 08/10/18 Benztropine [Cogentin] 1 mg PO DAILY Klonopin 0.5 mg twice a day and 1 mg at night time Divalproex [Depakote ER(ONCE DAILY)] 1,500 mg PO HS for mood stabilization Thorazine discontinued abilify 10mg po am 10mg hs for psychosis Burr 5 mg Family Contact Family contact: Patient agrees to contact - Outside Agency [facility] Care involvment: Information-sharing Agency contact name: [facility] Agency contact number: [phone] - Goals for Treatment Patient goals for treatment: medication adjustment Discharge/Continuing Care - Education Needs Education Needs: Patient Medication, Patient Diagnosis/Disease Process, Patient Coping Skills, Patient Community resources, Patient Activities of Daily Living, Patient Pain, Patient Nutrition, Patient Health Practices/Safety, Patient Personal Hygiene/Grooming, Patient Aftercare Safety Plan - Discharge Discharge Criteria: Tolerates medication w/o severe side effects, Free of paranoid thoughts, Normal sleep pattern, Ability to care for self, Reduction of target symptoms Discharge to:: Home - Treatment Team Participation Patient/Family/SO Statement: Milieu/structure/supportive therapy SW consultation for discharge plan and social issues Med management: Family involvement Follow up on labs Will monitor closely Pt was educated about risk/benefits and alternatives of medications, coping strategies (safety plan, suicide prevention), relapse prevention, importance of follow up with psychiatrist and therapist, stay away from drugs/alcohol/smoking fluPHENAZine Decanoate was given 07/14/2018, next dose is due August 11 but patient does not want to continue on that medication Amitriptyline discontinued 08/10/18 Benztropine [Cogentin] 1 mg PO DAILY Klonopin 0.5 mg twice a day and 1 mg at night time Divalproex [Depakote ER(ONCE DAILY)] 1,500 mg PO HS for mood stabilization Thorazine discontinued abilify 10mg po am 10mg hs for psychosis Burr 5 mg Treatment Plan Review - Problem Auditory hallucinations Time Initiated: 23:01 Altered thought process Time Initiated: 23:01 Ineffective coping Time Initiated: 23:01 <Tiffany Loredo - Last Filed: 08/11/18 14:52> Treatment Plan Review Patient participation: Yes - Problem Auditory hallucinations Progress toward outcomes: improved Altered thought process Progress toward outcomes: unchanged Ineffective coping Progress toward outcomes: unchanged <Joann Spann - Last Filed: 08/11/18 15:58>
--- NOTE | 2018-08-11 14:39 | PCM.PYCHPN ---
Psychiatric Progress Note - Psychiatric Progress Note Patient seen today, length of contact: 30 minutes Patient Chief Complaint: "I'm going home, not to another hospital right?" Problems Identified/Issues Discussed: the treatment plan was discussed with the patient, symptoms, risk/benefits/alternatives of Abilify discussed. Medical Problems: See HPI Diagnostic Results: 08/01/18 15:04 08/01/18 15:04 Lab Results 08/03/18 11:17: POC Glucose (mg/dL) 223 H 08/03/18 07:42: POC Glucose (mg/dL) 203 H 08/02/18 20:55: POC Glucose (mg/dL) 280 H 08/02/18 16:10: POC Glucose (mg/dL) 173 H 08/02/18 11:22: POC Glucose (mg/dL) 168 H 08/02/18 07:30: RPR Nonreactive 08/02/18 07:30: Valproic Acid 61 08/02/18 07:30: TSH 3rd Generation 2.13 08/02/18 07:30: Triglycerides 250 H, Cholesterol 188, LDL Cholesterol Direct 113, HDL Cholesterol 39 08/02/18 07:24: POC Glucose (mg/dL) 203 H 08/01/18 20:49: POC Glucose (mg/dL) 220 H 08/01/18 19:30: Urine Color Light yellow, Urine Appearance Clear, Urine pH 6.5, Ur Specific [place] 1.010, Urine Protein Negative, Urine Glucose (UA) >=1000, Urine Ketones Negative, Urine Blood Negative, Urine Nitrate Negative, Urine Bilirubin Negative, Urine Urobilinogen 0.2, Ur Leukocyte Esterase Trace H, Urine RBC None, Urine WBC 0 - 2, Ur Epithelial Cells 0 - 2 08/01/18 15:04: Acetaminophen < 10.0 L 08/01/18 15:04: Free T4 1.22, TSH 3rd Generation 0.95, Alcohol, Quantitative < 10 08/01/18 15:04: Urine Opiates Screen Negative, Urine Methadone Screen Negative, Ur Barbiturates Screen Negative, Ur Phencyclidine Scrn Negative, Ur Amphetamines Screen Negative, U Benzodiazepines Scrn Negative, U Oth Cocaine Metabols Negative, U Cannabinoids Screen Negative 08/01/18 15:04: Sodium 139, Potassium 4.6, Chloride 100, Carbon Dioxide 29, Anion Gap 14, BUN 14, Creatinine 0.7, Est GFR ( Amer) > 60, Est GFR (Non- Af Amer) > 60, Random Glucose 271 H, Calcium 9.6, Total Bilirubin 0.2, AST 18, ALT 10, Alkaline Phosphatase 100, Total Protein 7.1, Albumin 3.8, Globulin 3.3, Albumin/Globulin Ratio 1.1 08/01/18 15:04: WBC 5.9, RBC 4.46, Hgb 13.0, Hct 39.4, MCV 88.3, MCH 29.1, MCHC 33.0, RDW 14.4, Plt Count 172, MPV 9.1, Neut % (Auto) 68.9 H, Lymph % (Auto) 26.2, [place] % (Auto) 4.2, Eos % (Auto) 0.5 L, Baso % (Auto) 0.2, Lymph # (Auto) 1.6, [place] # (Auto) 0.3, Eos # (Auto) 0.0, Baso # (Auto) 0.01, Absolute Neuts (auto) 4.07 Vital Signs Temp Pulse Pulse Resp BP Pulse Ox 08/03/18 09:01 110/65 08/03/18 08:23 83 110/65 08/03/18 07:19 98.0 F 83 20 110/65 08/02/18 16:00 105 H 127/84 08/02/18 08:15 86 132/81 08/02/18 08:14 132/81 08/02/18 07:00 98.1 F 86 20 132/81 08/01/18 22:17 91 H 18 08/01/18 17:30 78 18 148/88 98 08/01/18 15:00 88 18 148/76 99 08/01/18 12:47 98.0 F 105 H 16 145/89 96 DSM 5 Symptoms Update: Patient is 57 year old Female, reported h/o schizoaffective disorder, [place] [facility] [place], likely noncompliant with prescribed psychiatric medications, who presented to the our ER with complaints of "side effect from Prolixin shot", as well as depression and anxiety, pt noted to be disorganized with prominent negative symptoms. Patient was seen today at the treatment team meeting, patient presented with poor personal hygiene, tongue, uncombed hair, patient presented calm, but still disorganized, today patient was anxiously asking if this loan underwriter is planning to discharge her to other hospital, yesterday was convinced that her son visited her and now she has cancer, no visit by her son, pt was not diagnosed with cancer. discussed with 08/10/48, leanna/eve zamora. pt is aware of the plan. As per staff report patient has periods of confusion, disorganized thoughts, but overall much calmer. Patient denied any problems to fall asleep or to stay asleep, reported that she has fair appetite. So far patient tolerates medications well, no side effects observed or reported, aims 0, no EPS. Impression: Schizoaffective disorder, bipolar type, most recent episode mixed Medication Change: Yes (Abilify increased 08/10/18) Medical Record Reviewed: Yes Mental Status Examination - Cognitive Function Orientation: Person, Place, Situation Memory: Impaired Attention: Poor (Some improvement) Concentration: Poor (Some) Association: Loose Fund of Knowledge: Poor - Mood Mood: Depressed ("All right"), Anxious - Affect Affect: Constricted, Flat - Formal Thought Process Formal Thought Process: Hallucinations, Delusions, Paranoia, Loosening of associations, Circumstantial - Suicidal Ideation Suicidal Ideation: No - Homicidal Ideation Homicidal Ideation: No Goal/Treatment Plan - Goal/Treatment Plan Need for Continued Stay: Remain at risks for inpatient hospitalization, Severe depression anxiety, Discharge may exacerbated symptoms, Severe functional impairment Progress Toward Problem(s) and Goals/Treatment Plan: Milieu/structure/supportive therapy SW consultation for discharge plan and social issues Med management: Family involvement Follow up on labs Will monitor closely Pt was educated about risk/benefits and alternatives of medications, coping strategies (safety plan, suicide prevention), relapse prevention, importance of follow up with psychiatrist and therapist, stay away from drugs/alcohol/smoking fluPHENAZine Decanoate was given 07/14/2018, next dose is due August 11 but patient does not want to continue on that medication Amitriptyline discontinued 08/10/18 Benztropine [Cogentin] 1 mg PO DAILY Klonopin 0.5 mg twice a day and 1 mg at night time Divalproex [Depakote ER(ONCE DAILY)] 1,500 mg PO HS for mood stabilization Thorazine discontinued abilify 10mg po am 10mg hs for psychosis increased August 10, 2018 sonata 5 mg hs prn for insomnia Estimated Date of D/C: 08/14/18
[2018-08-11] MEDS: TraMADol/Apap 37.5/325 mg Tab PO PRN (15:20)
--- NOTE | 2018-08-11 15:29 | PN ---
DATE: 08/10/2018 SUBJECTIVE: The patient is seen in Psychiatry floor. She still has some anxiety. She still is delusional about her illness. She thinks she has dementia. She thinks she has lupus, but no physical distress. She does complain of low back pain. PHYSICAL EXAMINATION: VITAL SIGNS: Temperature 98, heart rate 83, blood pressure 127/83. HEAD AND NECK: Normal. No JVD. No thyromegaly. CHEST: Clear. CARDIAC: First sound and second sound normal. No murmur, rub, or gallop. ABDOMEN: Obese, nontender. EXTREMITIES: No edema. NEUROLOGICAL: Normal. BACK: Mildly tender with restricted movement. LABORATORY DATA: White count 6.4, hemoglobin 12.9, hematocrit 38.8, platelets 174. Chemistry: Her blood sugar is running between 150 to 200. IMPRESSION AND PLAN: 1. Psychosis. The patient had severe depression and anxiety with psychotic symptoms. Continue supportive care. The patient is on anti-psychotic treatment. Discussed with Dr. Montilla. She is going take her off Elavil and will continue Klonopin, Depakote, Thorazine p.r.n. Abilify will be started for her dose 10 mg b.i.d. She also got fluphenazine decanoate on 07/14/2018; next dose will be 08/11/2018. 2. Chronic back pain. Chronic osteoarthritis, sacroiliac joint disease. Will give her tramadol if needed p.r.n. 3. Diabetes insulin dependent. Continue insulin coverage. 4. Hypertension, stable. Continue current therapy. Follow up clinically. Zana Mancera MD
[2018-08-11] MEDS: Divalproex 500 mg ER (ONCE DAILY formulation) PO SCH (21:33)
[2018-08-11] MEDS: Insulin Detemir 100 units/ml Vial (Levemir) SC SCH (21:33)
[2018-08-12] MEDS: Lidocaine 5% Patch TD SCH (07:50)
[2018-08-12] MEDS: Fluticasone Nasal 50 mcg/Spray NS SCH (07:50)
[2018-08-12] MEDS: Mupirocin 2% Ointment 15 GM TUBE TOP SCH ×2 (08:50→16:10)
--- NOTE | 2018-08-12 08:55 | PCM.PYCHPN ---
Psychiatric Progress Note - Psychiatric Progress Note Patient seen today, length of contact: 30 minutes Problems Identified/Issues Discussed: I review recent notes and patient was interviewed in the hallway. I am familiar with patient from prior interviews during this admission. Patient still appears disheveled with anxious affect. Focus is scattered and patient has periods of confusion. Affect is labile. She is asking about discharge though this has been discussed with her by Dr. Valentine. Staff notes indicate she has been hallucinating and delusional. She can be irritable and lopes. Required thorazine IM prn yesterday. Presently patient denies any new side effects from her current medications. There were no behavioral issues overnight however her impulse control is tenuous. Diagnostic Results: Schizoaffective disorder, bipolar type, most recent episode mixed Medication Change: No ( ) Medical Record Reviewed: Yes Mental Status Examination - Cognitive Function Orientation: Person, Place, Situation Memory: Impaired Attention: Poor (Some improvement) Concentration: Poor (Some) Association: Loose Fund of Knowledge: Poor - Mood Mood: Depressed ("All right"), Anxious - Affect Affect: Constricted, Flat, Other (labile) - Speech Speech: Appropriate - Formal Thought Process Formal Thought Process: Hallucinations, Delusions, Paranoia, Loosening of associations, Circumstantial - Suicidal Ideation Suicidal Ideation: No - Homicidal Ideation Homicidal Ideation: No Goal/Treatment Plan - Goal/Treatment Plan Need for Continued Stay: Remain at risks for inpatient hospitalization, Severe depression anxiety, Discharge may exacerbated symptoms, Severe functional impairment Progress Toward Problem(s) and Goals/Treatment Plan: * c/w current treatment and plan * No new weekend lab results thus far * Vitals reviewed and noted below: Selected Entries 08/11/18 08/11/18 07:26 16:00 Temperature 97.2 F L Pulse Rate 69 71 Respiratory 20 Rate Blood Pressure 118/78 126/82 Estimated Date of D/C: 08/14/18
[2018-08-12] MEDS: Insulin Lispro 1 UNITS/0.01 ML SC SCH ×3 (09:29→16:20)
[2018-08-12] MEDS: Divalproex 500 mg ER (ONCE DAILY formulation) PO SCH (21:11)
[2018-08-12] MEDS: TraMADol/Apap 37.5/325 mg Tab PO PRN (21:17)
[2018-08-12] MEDS: Insulin Detemir 100 units/ml Vial (Levemir) SC SCH (21:41)
[2018-08-13 06:51] VITALS: TEMP 97.3
[2018-08-13] MEDS: Mupirocin 2% Ointment 15 GM TUBE TOP SCH ×2 (07:55→16:04)
[2018-08-13] MEDS: Fluticasone Nasal 50 mcg/Spray NS SCH (07:55)
[2018-08-13] MEDS: Lidocaine 5% Patch TD SCH (07:55)
[2018-08-13] MEDS: Insulin Lispro 1 UNITS/0.01 ML SC SCH ×3 (08:25→16:01)
--- NOTE | 2018-08-13 09:21 | PCM.PYCHPN ---
Psychiatric Progress Note - Psychiatric Progress Note Patient seen today, length of contact: 30 minutes Problems Identified/Issues Discussed: I review recent notes and patient was interviewed in the dayroom. I am familiar with patient from prior interviews during this admission. Patient still appears unkempt with anxious affect. Focus is scattered and patient has periods of confusion. Affect is labile. She continues to ask about discharge though this has been discussed with her by both this provider and Dr. Valentine. Patient reports feeling much better and that she is tolerating abilify. She denies any new discomfort or pain. Staff notes indicate she has been hallucinating and delusional. She can be irritable and lopes. Required thorazine IM prn on Tuesday night. There has been no further need for prns thus far this weekend. However her impulse control remains tenuous. Diagnostic Results: Schizoaffective disorder, bipolar type, most recent episode mixed Medication Change: No ( ) Medical Record Reviewed: Yes Mental Status Examination - Cognitive Function Orientation: Person, Place, Situation Memory: Impaired Attention: Poor (Some improvement) Concentration: Poor (Some) Association: Loose Fund of Knowledge: Poor - Mood Mood: Depressed ("All right"), Anxious - Affect Affect: Constricted (can be labile), Flat, Other (labile) - Speech Speech: Appropriate - Formal Thought Process Formal Thought Process: Hallucinations (denied), Delusions, Paranoia, Loosening of associations, Circumstantial - Suicidal Ideation Suicidal Ideation: No - Homicidal Ideation Homicidal Ideation: No Goal/Treatment Plan - Goal/Treatment Plan Need for Continued Stay: Remain at risks for inpatient hospitalization, Severe depression anxiety, Discharge may exacerbated symptoms, Severe functional impairment Progress Toward Problem(s) and Goals/Treatment Plan: * c/w current treatment and plan * No new weekend lab results * Vitals reviewed and noted below: Selected Entries 08/12/18 08/12/18 08/12/18 07:00 15:48 22:00 Temperature 97.7 F Pulse Rate 75 71 Respiratory 18 18 Rate Blood Pressure 116/78 112/77 Estimated Date of D/C: 08/14/18
[2018-08-13] MEDS: TraMADol/Apap 37.5/325 mg Tab PO PRN (09:35)
[2018-08-13] MEDS: Divalproex 500 mg ER (ONCE DAILY formulation) PO SCH (21:16)
[2018-08-13] MEDS: Insulin Detemir 100 units/ml Vial (Levemir) SC SCH (22:16)
--- NOTE | 2018-08-14 01:20 | PN ---
DATE: 08/12/2018 SUBJECTIVE: The patient is complaining that she thinks she has cancer somewhere, however, has never been told that, but she has a kind of hypochondriac about that. She has delusions of having Alzheimer. She seems anxious, mildly depressed. Physically, no new complaints. PHYSICAL EXAMINATION: Please be advised this physical exam in 08/12/2018, VITAL SIGNS: Temperature 97.7, heart rate 75, blood pressure 116/78, respirations 18. HEAD AND NECK: Normal. No JVD. No thyromegaly. CHEST: Clear bilateral. CARDIAC: First sound and second sounds normal. No murmur, rub, or gallop. ABDOMEN: Soft, nontender, obese. EXTREMITIES: Mild edema. NEUROLOGICAL: Normal. IMPRESSION AND PLAN: 1. The patient has depression, anxiety, psychosis. Continue current antipsychotic therapy. She is on Abilify. She is on Cogentin, Depakote, Klonopin, Thorazine as needed. 2. Hypertension, stable. Continue Zestril and atenolol. 3. Morbid obesity, obstructive sleep apnea. Continue continuous positive airway pressure machine. 4. Hypercholesterolemia. 5. Chronic constipation. She moved her bowel today. She seems doing good. Continue current therapy. Follow up clinically. Zana Mancera MD
[2018-08-14] MEDS: Fluticasone Nasal 50 mcg/Spray NS SCH (08:38)
[2018-08-14] MEDS: Insulin Lispro 1 UNITS/0.01 ML SC SCH ×3 (08:38→16:45)
[2018-08-14] MEDS: Mupirocin 2% Ointment 15 GM TUBE TOP SCH ×2 (08:41→16:46)
[2018-08-14] MEDS: Lidocaine 5% Patch TD SCH (08:42)
--- NOTE | 2018-08-14 16:04 | PCM.PYCHPN ---
Psychiatric Progress Note - Psychiatric Progress Note Patient seen today, length of contact: 30 minutes Patient Chief Complaint: "I feel better..." Problems Identified/Issues Discussed: the treatment plan was discussed with the patient, symptoms, risk/benefits/alternatives of Abilify discussed. Medical Problems: See HPI Diagnostic Results: 08/01/18 15:04 08/01/18 15:04 Lab Results 08/03/18 11:17: POC Glucose (mg/dL) 223 H 08/03/18 07:42: POC Glucose (mg/dL) 203 H 08/02/18 20:55: POC Glucose (mg/dL) 280 H 08/02/18 16:10: POC Glucose (mg/dL) 173 H 08/02/18 11:22: POC Glucose (mg/dL) 168 H 08/02/18 07:30: RPR Nonreactive 08/02/18 07:30: Valproic Acid 61 08/02/18 07:30: TSH 3rd Generation 2.13 08/02/18 07:30: Triglycerides 250 H, Cholesterol 188, LDL Cholesterol Direct 113, HDL Cholesterol 39 08/02/18 07:24: POC Glucose (mg/dL) 203 H 08/01/18 20:49: POC Glucose (mg/dL) 220 H 08/01/18 19:30: Urine Color Light yellow, Urine Appearance Clear, Urine pH 6.5, Ur Specific [place] 1.010, Urine Protein Negative, Urine Glucose (UA) >=1000, Urine Ketones Negative, Urine Blood Negative, Urine Nitrate Negative, Urine Buddy irubin Negative, Urine Urobilinogen 0.2, Ur Leukocyte Esterase Trace H, Urine RBC None, Urine WBC 0 - 2, Ur Epithelial Cells 0 - 2 08/01/18 15:04: Acetaminophen < 10.0 L 08/01/18 15:04: Free T4 1.22, TSH 3rd Generation 0.95, Alcohol, Quantitative < 1 0 08/01/18 15:04: Urine Opiates Screen Negative, Urine Methadone Screen Negative, Ur Barbiturates Screen Negative, Ur Phencyclidine Scrn Negative, Ur Amphetamines Screen Negative, U Benzodiazepines Scrn Negative, U Oth Cocaine Metabols Negative, U Cannabinoids Screen Negative 08/01/18 15:04: Sodium 139, Potassium 4.6, Chloride 100, Carbon Dioxide 29, Anion Gap 14, BUN 14, Creatinine 0.7, Est GFR ( Amer) > 60, Est GFR (Non- Af Amer) > 60, Random Glucose 271 H, Calcium 9.6, Total Bilirubin 0.2, AST 18, ALT 10, Alkaline Phosphatase 100, Total Protein 7.1, Albumin 3.8, Globulin 3.3, Albumin/Globulin Ratio 1.1 08/01/18 15:04: WBC 5.9, RBC 4.46, Hgb 13.0, Hct 39.4, MCV 88.3, MCH 29.1, MCHC 33.0, RDW 14.4, Plt Count 172, MPV 9.1, Neut % (Auto) 68.9 H, Lymph % (Auto) 26.2, [place] % (Auto) 4.2, Eos % (Auto) 0.5 L, Baso % (Auto) 0.2, Lymph # (Auto) 1.6, [place] # (Auto) 0.3, Eos # (Auto) 0.0, Baso # (Auto) 0.01, Absolute Neuts (auto) 4.07 Vital Signs Temp Pulse Pulse Resp BP Pulse Ox 08/03/18 09:01 110/65 08/03/18 08:23 83 110/65 08/03/18 07:19 98.0 F 83 20 110/65 08/02/18 16:00 105 H 127/84 08/02/18 08:15 86 132/81 08/02/18 08:14 132/81 08/02/18 07:00 98.1 F 86 20 132/81 08/01/18 22:17 91 H 18 08/01/18 17:30 78 18 148/88 98 08/01/18 15:00 88 18 148/76 99 08/01/18 12:47 98.0 F 105 H 16 145/89 96 DSM 5 Symptoms Update: Patient is 57 year old Female, reported h/o schizoaffective disorder, [place] psychiatric [place] [facility] [place], likely noncompliant with prescribed psychiatric medications, who presented to the our ER with complaints of "side effect from Prolixin shot", as well as depression and anxiety, pt noted to be disorganized with prominent negative symptoms. Patient was seen today at the hallway, patient appears to be anxious, poor hyg iene, patient reported that she feels better, patient asked when she will be discharged, is on report from the social science manager patient will be followed day treatment program which is scheduled this August 16. Patient agreed that she needs to stay in the hospital in order to make sure she has smooth transition from acute psychiatric inpatient to intensive outpatient program. As per staff report patient has periods of confusion, disorganized thoughts, but overall much calmer and better organized. Patient denied any problems to fall asleep or to stay asleep, reported that she has fair appetite. So far patient tolerates medications well, no side effects observed or reported, aims 0, no EPS. Impression: Schizoaffective disorder, bipolar type, most recent episode mixed Medication Change: No ( ) Medical Record Reviewed: Yes Mental Status Examination - Cognitive Function Orientation: Person, Place, Situation Memory: Impaired Attention: Poor (Some improvement) Concentration: Poor (Some) Association: Loose Fund of Knowledge: Poor - Mood Mood: Depressed ("All right"), Anxious - Affect Affect: Constricted (can be labile), Flat, Other (labile) - Speech Speech: Appropriate - Formal Thought Process Formal Thought Process: Hallucinations (denied), Delusions, Loosening of associations, Circumstantial - Suicidal Ideation Suicidal Ideation: No - Homicidal Ideation Homicidal Ideation: No Goal/Treatment Plan - Goal/Treatment Plan Need for Continued Stay: Remain at risks for inpatient hospitalization, Severe depression anxiety, Discharge may exacerbated symptoms, Severe functional impairment Progress Toward Problem(s) and Goals/Treatment Plan: Milieu/structure/supportive therapy SW consultation for discharge plan and social issues Med management: Family involvement Follow up on labs Will monitor closely Pt was educated about risk/benefits and alternatives of medications, coping strategies (safety plan, suicide prevention), relapse prevention, importance of follow up with psychiatrist and therapist, stay away from drugs/alcohol/smoking fluPHENAZine Decanoate was given 07/14/2018, next dose is due August 11 but patient does not want to continue on that medication Amitriptyline discontinued 08/10/18 Benztropine [Cogentin] 1 mg PO DAILY Klonopin 0.5 mg twice a day and 1 mg at night time Divalproex [Depakote ER(ONCE DAILY)] 1,500 mg PO HS for mood stabilization Will check Depakote level tomorrow 08/15/18 Thorazine discontinued abilify 10mg po am 10mg hs for psychosis increased August 10, 2018 sonata 5 mg hs prn for insomnia Estimated Date of D/C: 08/14/18
[2018-08-14] MEDS: Divalproex 500 mg ER (ONCE DAILY formulation) PO SCH (21:32)
[2018-08-14] MEDS: Insulin Detemir 100 units/ml Vial (Levemir) SC SCH (21:33)
[2018-08-15 07:22] VITALS: BP 118/80; PULSE 76; RESP 17
[2018-08-15 08:52] LABS: PH,URINE 5.5 (4.7-8.0); URINE BILIRUBIN NEGATIVE (NEGATIVE); URINE BLOOD NEGATIVE (NEGATIVE); URINE GLUCOSE (UA) NEGATIVE (NEGATIVE); URINE LEUKOCYTE ESTERASE SMALL Leu/uL (NEGATIVE); URINE PROTEIN NEGATIVE mg/dL (<30 mg/dL); URINE UROBILINOGEN 0.2 E.U./dL (<1 E.U./dL)
[2018-08-15 08:54] LABS: URINE APPEARANCE CLEAR (CLEAR); URINE COLOR YELLOW (YELLOW)
[2018-08-15] MEDS: Insulin Lispro 1 UNITS/0.01 ML SC SCH ×2 (08:54→12:15)
[2018-08-15] MEDS: Lidocaine 5% Patch TD SCH (08:56)
[2018-08-15] MEDS: Fluticasone Nasal 50 mcg/Spray NS SCH (08:59)
[2018-08-15] MEDS: Mupirocin 2% Ointment 15 GM TUBE TOP SCH (08:59)
[2018-08-15 09:09] LABS: URINE BACTERIA MANY /hpf; URINE RBC 0 - 2 /hpf (0-2)
[2018-08-15 09:10] LABS: URINE AMORPHOUS SEDIMENT FEW /hpf; URINE COARSE GRANULAR CAST TRACE /hpf
--- NOTE | 2018-08-15 14:25 | PN ---
DATE: 08/14/2018 SUBJECTIVE: She is in the Psychiatry floor. She is comfortable, no distress, clinically better. She still feels worried about her health from delusional thought of neurologic disease, multiple sclerosis, cancer; however, I did tell her she is okay but she keeps on checking about it. She seems mildly depressed but no physical complaint. PHYSICAL EXAMINATION: VITAL SIGNS: Temperature 98, heart rate 62, blood pressure 118/80, respirations 17. HEAD AND NECK: Normal. No JVD. No thyromegaly. CHEST: Clear bilateral. CARDIAC: First sound and second sound normal. ABDOMEN: Soft, obese, nontender. EXTREMITIES: No edema. NEUROLOGIC: Normal. IMPRESSION AND PLAN: 1. Schizoaffective disorder, psychosis, depression, and anxiety. The patient is taking Klonopin and she is off Elavil. She is on Depakote plus Abilify plus Cogentin. Klonopin, has been taking 1 mg at bedtime 0.5 twice daily. Also, the patient is taking Sonata 5 mg at bedtime and Thorazine as needed. 2. Chronic back pain, chronic osteoarthritis, lumbosacral and sacroiliac joints. Continue Ultracet as needed. 3. Hypertension. We will blood pressure, Zestril to 10 mg plus atenolol 25 mg plus Lasix 20 mg by mouth daily . 4. Insulin-dependent diabetes. Continue Levemir 45 units and 12 units of Humalog before each meal. 5. Morbid obesity and obstructive sleep apnea. Continue continuous positive airway pressure. Continue physical therapy. Follow up clinically. Continue the rest of medications. Zana Mancera MD
--- NOTE | 2018-08-15 15:43 | PCM.PYCHDC ---
Mental Status Examination - Mental Status Examination Orientation: Person, Place, Situation, Time Memory: Intact Mood: Neutral Affect: Constricted (but reactive, mood congruent) Speech: Appropriate Attention: Poor (with much improvement) Concentration: WNL Association: Loose (much improved) Fund of Knowledge: WNL Formal Thought Process: Other (at times pt appears to be confused, but overall much better) Description of patient's judgement and insight: pt has good insight into her medial/mental issues, pt is compliant with meds and each time when she does not feel good pt brings herself to the hospital. Psychotic Thoughts and Behaviors: pt has periods when pt could be presented to be confused, looking for her son, but within a few minutes pt appears to be okay. pt has residual symptoms of psychosis, but much better. Suicidal Ideation: No Current Homicidal Ideation?: No Plan: pt adamantly denied thoughts of harming self or others. Discharge Summary - Discharge Note Reason for Hospitalization: Patient was admitted to the psychiatric inpatient unit for evaluation and stabilization of psychotic symptoms, inability to function, paranoia. Psychiatric History (includes Medical, Family, Personal Hx): see HPI Laboratory Data: Abnormal Lab Results 08/14/18 08/14/18 08/14/18 11:03 14:24 14:45 POC Glucose (mg/dL) 113 H 46 L 127 H Urine Color Urine Appearance Urine pH Ur Specific [place] Urine Protein Urine Glucose (UA) Urine Ketones Urine Blood Urine Nitrate Urine Bilirubin Urine Urobilinogen Ur Leukocyte Esterase Urine RBC Urine WBC Ur Epithelial Cells Amorphous Sediment Urine Bacteria Coarse Granular Casts Valproic Acid 08/14/18 08/14/18 08/15/18 16:05 21:02 07:18 POC Glucose (mg/dL) 153 H 186 H 132 H Urine Color Urine Appearance Urine pH Ur Specific [place] Urine Protein Urine Glucose (UA) Urine Ketones Urine Blood Urine Nitrate Urine Bilirubin Urine Urobilinogen Ur Leukocyte Esterase Urine RBC Urine WBC Ur Epithelial Cells Amorphous Sediment Urine Bacteria Coarse Granular Casts Valproic Acid 08/15/18 08/15/18 08:00 08:05 POC Glucose (mg/dL) Urine Color Yellow Urine Appearance Clear Urine pH 5.5 Ur Specific [place] 1.020 Urine Protein Negative Urine Glucose (UA) Negative Urine Ketones Negative Urine Blood Negative Urine Nitrate Negative Urine Bilirubin Negative Urine Urobilinogen 0.2 Ur Leukocyte Esterase Small H Urine RBC 0 - 2 Urine WBC 5 - 10 H Ur Epithelial Cells 6 - 8 H Amorphous Sediment Few Urine Bacteria Many Coarse Granular Casts Trace Valproic Acid 78 08/04/18 14:30 08/04/18 14:30 Lab Results 08/15/18 08:05: Urine Color Yellow, Urine Appearance Clear, Urine pH 5.5, Ur Sp ecific [place] 1.020, Urine Protein Negative, Urine Glucose (UA) Negative, Urine Ketones Negative, Urine Blood Negative, Urine Nitrate Negative, Urine Bilirubin Negative, Urine Urobilinogen 0.2, Ur Leukocyte Esterase Small H, Urine RBC 0 - 2, Urine WBC 5 - 10 H, Ur Epithelial Cells 6 - 8 H, Amorphous Sediment Few, Urine Bacteria Many, Coarse Granular Casts Trace 08/15/18 08:00: Valproic Acid 78 08/15/18 07:18: POC Glucose (mg/dL) 132 H 08/14/18 21:02: POC Glucose (mg/dL) 186 H 08/14/18 16:05: POC Glucose (mg/dL) 153 H 08/14/18 14:45: POC Glucose (mg/dL) 127 H 08/14/18 14:24: POC Glucose (mg/dL) 46 L 08/14/18 11:03: POC Glucose (mg/dL) 113 H 08/14/18 07:12: POC Glucose (mg/dL) 114 H 08/13/18 21:27: POC Glucose (mg/dL) 176 H 08/13/18 15:57: POC Glucose (mg/dL) 136 H 08/13/18 11:11: POC Glucose (mg/dL) 162 H 08/13/18 07:23: POC Glucose (mg/dL) 134 H 08/12/18 21:38: POC Glucose (mg/dL) 202 H 08/12/18 16:04: POC Glucose (mg/dL) 129 H 08/12/18 11:23: POC Glucose (mg/dL) 174 H 08/12/18 07:30: POC Glucose (mg/dL) 177 H 08/11/18 21:09: POC Glucose (mg/dL) 164 H 08/11/18 16:03: POC Glucose (mg/dL) 132 H 08/11/18 11:04: POC Glucose (mg/dL) 212 H 08/11/18 07:38: POC Glucose (mg/dL) 203 H 08/10/18 21:19: POC Glucose (mg/dL) 139 H 08/10/18 16:25: POC Glucose (mg/dL) 136 H 08/10/18 13:52: POC Glucose (mg/dL) 156 H 08/10/18 11:44: POC Glucose (mg/dL) 203 H 08/10/18 07:13: POC Glucose (mg/dL) 144 H 08/09/18 22:23: POC Glucose (mg/dL) 228 H 08/09/18 16:22: POC Glucose (mg/dL) 125 H 08/09/18 11:26: POC Glucose (mg/dL) 248 H 08/09/18 07:15: POC Glucose (mg/dL) 163 H 08/08/18 21:07: POC Glucose (mg/dL) 113 H 08/08/18 16:29: POC Glucose (mg/dL) 134 H 08/08/18 10:54: POC Glucose (mg/dL) 233 H 08/08/18 07:36: POC Glucose (mg/dL) 125 H 08/07/18 20:52: POC Glucose (mg/dL) 187 H 08/07/18 16:11: POC Glucose (mg/dL) 82 08/07/18 11:03: POC Glucose (mg/dL) 179 H 08/07/18 07:27: POC Glucose (mg/dL) 149 H 08/06/18 21:15: POC Glucose (mg/dL) 182 H 08/06/18 15:57: POC Glucose (mg/dL) 116 H 08/06/18 11:06: POC Glucose (mg/dL) 164 H 08/06/18 07:12: POC Glucose (mg/dL) 192 H 08/05/18 21:24: POC Glucose (mg/dL) 153 H 08/05/18 16:37: POC Glucose (mg/dL) 101 08/05/18 11:30: POC Glucose (mg/dL) 182 H 08/05/18 07:09: POC Glucose (mg/dL) 186 H 08/04/18 21:11: POC Glucose (mg/dL) 202 H 08/04/18 16:52: POC Glucose (mg/dL) 213 H 08/04/18 14:30: Sodium 139, Potassium 5.1 H, Chloride 102, Carbon Dioxide 29, Anion Gap 14, BUN 17, Creatinine 0.9, Est GFR ( Amer) > 60, Est GFR (Non- Af Amer) > 60, Random Glucose 178 H, Calcium 9.6, Total Bilirubin 0.3, AST 14 D , ALT 7, Alkaline Phosphatase 80, Total Protein 7.0, Albumin 3.8, Globulin 3.2, Albumin/Globulin Ratio 1.2 08/04/18 14:30: WBC 6.4, RBC 4.32, Hgb 12.9, Hct 38.8, MCV 89.8, MCH 29.9, MCHC 33.2, RDW 15.0 H, Plt Count 174, MPV 9.5, Neut % (Auto) 61.0, Lymph % (Auto) 31.3, [place] % (Auto) 5.5, Eos % (Auto) 1.7, Baso % (Auto) 0.5, Lymph # (Auto) 2.0, [place] # (Auto) 0.4, Eos # (Auto) 0.1, Baso # (Auto) 0.03, Absolute Neuts (auto) 3.92 08/04/18 11:14: POC Glucose (mg/dL) 239 H 08/04/18 07:12: POC Glucose (mg/dL) 150 H 08/03/18 20:51: POC Glucose (mg/dL) 167 H 08/03/18 16:17: POC Glucose (mg/dL) 89 08/03/18 11:17: POC Glucose (mg/dL) 223 H 08/03/18 07:42: POC Glucose (mg/dL) 203 H 08/02/18 20:55: POC Glucose (mg/dL) 280 H 08/02/18 16:10: POC Glucose (mg/dL) 173 H 08/02/18 11:22: POC Glucose (mg/dL) 168 H 08/02/18 07:30: RPR Nonreactive 08/02/18 07:30: Valproic Acid 61 08/02/18 07:30: TSH 3rd Generation 2.13 08/02/18 07:30: Triglycerides 250 H, Cholesterol 188, LDL Cholesterol Direct 113, HDL Cholesterol 39 08/02/18 07:24: POC Glucose (mg/dL) 203 H 08/01/18 20:49: POC Glucose (mg/dL) 220 H 08/01/18 19:30: Urine Color Light yellow, Urine Appearance Clear, Urine pH 6.5, Ur Specific [place] 1.010, Urine Protein Negative, Urine Glucose (UA) >=1000, Urine Ketones Negative, Urine Blood Negative, Urine Nitrate Negative, Urine Bilirubin Negative, Urine Urobilinogen 0.2, Ur Leukocyte Esterase Trace H, Urine RBC None, Urine WBC 0 - 2, Ur Epithelial Cells 0 - 2 08/01/18 15:04: Acetaminophen < 10.0 L 08/01/18 15:04: Free T4 1.22, TSH 3rd Generation 0.95, Alcohol, Quantitative < 10 08/01/18 15:04: Urine Opiates Screen Negative, Urine Methadone Screen Negative, Ur Barbiturates Screen Negative, Ur Phencyclidine Scrn Negative, Ur Amphetamines Screen Negative, U Benzodiazepines Scrn Negative, U Oth Cocaine Metabols Negative, U Cannabinoids Screen Negative 08/01/18 15:04: Sodium 139, Potassium 4.6, Chloride 100, Carbon Dioxide 29, Anion Gap 14, BUN 14, Creatinine 0.7, Est GFR ( Amer) > 60, Est GFR (Non- Af Amer) > 60, Random Glucose 271 H, Calcium 9.6, Total Bilirubin 0.2, AST 18, ALT 10, Alkaline Phosphatase 100, Total Protein 7.1, Albumin 3.8, Globulin 3.3, Albumin/Globulin Ratio 1.1 08/01/18 15:04: WBC 5.9, RBC 4.46, Hgb 13.0, Hct 39.4, MCV 88.3, MCH 29.1, MCHC 33.0, RDW 14.4, Plt Count 172, MPV 9.1, Neut % (Auto) 68.9 H, Lymph % (Auto) 26.2, [place] % (Auto) 4.2, Eos % (Auto) 0.5 L, Baso % (Auto) 0.2, Lymph # (Auto) 1.6, [place] # (Auto) 0.3, Eos # (Auto) 0.0, Baso # (Auto) 0.01, Absolute Neuts (auto) 4.07 Vital Signs Temp Pulse Pulse Resp BP Pulse Ox 08/15/18 08:58 76 118/80 08/15/18 08:57 118/80 08/15/18 07:00 76 17 118/80 08/14/18 16:00 62 87/62 L 08/14/18 08:40 70 114/79 08/14/18 08:39 70 114/79 08/14/18 07:14 97.3 F L 70 20 114/79 08/13/18 16:17 76 109/75 08/13/18 09:55 77 111/76 08/13/18 07:55 77 111/76 08/13/18 07:00 16 08/13/18 06:50 97.3 F L 72 20 111/76 08/12/18 22:00 18 08/12/18 15:48 71 112/77 08/12/18 09:36 116/78 08/12/18 08:50 75 116/78 08/12/18 07:50 75 116/78 08/12/18 07:00 97.7 F 75 18 116/78 08/11/18 16:00 71 126/82 08/11/18 09:14 69 118/78 08/11/18 09:13 118/78 08/11/18 07:26 97.2 F L 69 20 118/78 08/10/18 16:00 71 142/85 08/10/18 08:46 127/83 08/10/18 08:45 83 127/83 08/10/18 07:12 97.1 F L 83 127/83 08/09/18 16:00 78 142/92 H 08/09/18 08:23 81 117/73 08/09/18 08:22 81 117/73 08/09/18 07:14 97.3 F L 81 20 117/73 08/08/18 16:00 74 124/81 08/08/18 09:53 73 120/82 08/08/18 09:52 120/82 08/08/18 07:18 97.3 F L 73 20 120/82 08/07/18 15:53 71 96/56 L 08/07/18 08:24 97/64 L 08/07/18 08:23 75 97/64 L 08/07/18 07:00 98 F 75 17 97/64 L 08/06/18 09:22 75 98/64 L 08/06/18 09:21 75 98/64 L 08/06/18 09:20 98/64 L 08/06/18 07:00 97.8 F 75 17 98/64 L 08/05/18 16:00 65 160/72 H 08/05/18 09:11 108/66 08/05/18 07:36 98.3 F 68 20 108/66 08/04/18 16:12 65 118/74 08/04/18 08:41 117/75 08/04/18 07:08 98.1 F 76 20 117/75 08/03/18 16:00 77 105/68 08/03/18 09:01 110/65 08/03/18 08:23 83 110/65 08/03/18 07:19 98.0 F 83 20 110/65 08/02/18 16:00 105 H 127/84 08/02/18 08:15 86 132/81 08/02/18 08:14 132/81 08/02/18 07:00 98.1 F 86 20 132/81 08/01/18 22:17 91 H 18 08/01/18 17:30 78 18 148/88 98 08/01/18 15:00 88 18 148/76 99 08/01/18 12:47 98.0 F 105 H 16 145/89 96 pt c/o burning when urinating, is aware. Consultations:: List each consultation separately and include: 1. Reason for request. 2. Findings. 3. Follow-up Consultations: Consultation appreciated, patient was seen by primary care physician Dr. Mancera Summary of Hospital Course include:: 1. Description of specific treatment plan utilized for patients during their course of treatmen. 2. Summarize the time- course for resolution of acute symptoms and/or regressed behaviors. 3. Describe issues identified and worked on during hospitalization. 4. Describe medication utilized. 5. Describe medical problems identified and treated. 6. Reassessment of suicide risk Summary of Hospital Course: Patient is 57 year old Female, reported h/o schizoaffective disorder, multiple psychiatric admissions most recently at [facility] 06/27, likely noncompliant with prescribed psychiatric medications, who presented to the our ER with complaints of "side effect from Prolixin shot", as well as depression and anxiety, pt noted to be disorganized with prominent negative symptoms. at the time of admission pt presented with poor personal hygiene, poor ADLs, patient presented to be psychotic, convinced that recently she developed some side effects from the Prolixin Decanoate which she received about months ago, patient is convinced that she has some type of side effects which she was not able to describe "all I know that it did not fit my body.. I became psychotic". Based on this principal technical writer assessment last admission, pt did not developed any side effect from Prolixin Decanoate, was in very good shape prior to discharge, no psychotic symptoms developed after Prolixin Dec, basically pt was presenting much better at the time of d/c. pt did not want to continue on prolixin pt was requesting to be on thorazine, but was not improving then this principal technical writer reintroduced pt with Abilify which seems to be effective in the past pt was stabilized on the following medications: fluPHENAZine Decanoate was given 07/14/2018, next dose is due August 11 but patient does not want to continue on that medication Amitriptyline discontinued 08/10/18 Benztropine [Cogentin] 1 mg PO DAILY for EPS Klonopin 0.5 mg twice a day and 1 mg at night time for anxiety and restlessness Divalproex [Depakote ER(ONCE DAILY)] 1,500 mg PO HS for mood stabilization Depakote level was 78 08/15/18 abilify 10mg po am 10mg hs for psychosis sonata 5 mg hs prn for insomnia pt tolerated medications well, no side effects observed or reported, pt became more organized, less angry, less paranoid. pt was participating in unit activities, no agitation or aggression. pt had an episodes of confusion when she will be looking for her son, but overall pt is much better and pt reached maximum effect from acute psychiatric inpatient unit stabilization, pt was willing to be referred back to [facility] for Day Treatment program which will be started 08/16/18. At the time of the discharge patient pose no imminent danger to self or others, will be following up at [facility] mental health clinic, information about follow up appointment, time and address provided to the pt, (see SW note for more detailed information). It is a patient responsibility to follow up with outpatient clinic, PMD as well as specialists In case patient will need to obtain results of studies pending at discharge, patient was provided with contact information of Psychiatric Inpatient unit [phone] as well as Medical Record Department [phone], as well as [facility] team [phone]. pt denied using drugs, denies smoking, denied drinking pt was provided with prescriptions (see medication reconciliation form) Pt was educated about safety plan in case of worsening of symptoms or in case of suicidal or homicidal ideation call 911 or go to the nearest ER, also was educated to take meds as prescribed and stay away from drugs, pt verbalized understanding. 08/01/18 15:04 08/01/18 15:04 Lab Results 08/02/18 07:30: Valproic Acid 61 08/02/18 07:30: TSH 3rd Generation 2.13 08/02/18 07:30: Triglycerides 250 H, Cholesterol 188, LDL Cholesterol Direct 113, HDL Cholesterol 39 08/02/18 07:24: POC Glucose (mg/dL) 203 H 08/01/18 20:49: POC Glucose (mg/dL) 220 H 08/01/18 19:30: Urine Color Light yellow, Urine Appearance Clear, Urine pH 6.5, Ur Specific [place] 1.010, Urine Protein Negative, Urine Glucose (UA) >=1000, Urine Ketones Negative, Urine Blood Negative, Urine Nitrate Negative, Urine Bilirubin Negative, Urine Urobilinogen 0.2, Ur Leukocyte Esterase Trace H, Urine RBC None, Urine WBC 0 - 2, Ur Epithelial Cells 0 - 2 08/01/18 15:04: Acetaminophen < 10.0 L 08/01/18 15:04: Free T4 1.22, TSH 3rd Generation 0.95, Alcohol, Quantitative < 10 08/01/18 15:04: Urine Opiates Screen Negative, Urine Methadone Screen Negative, Ur Barbiturates Screen Negative, Ur Phencyclidine Scrn Negative, Ur Amphetamines Screen Negative, U Benzodiazepines Scrn Negative, U Oth Cocaine Metabols Negative, U Cannabinoids Screen Negative 08/01/18 15:04: Sodium 139, Potassium 4.6, Chloride 100, Carbon Dioxide 29, Anion Gap 14, BUN 14, Creatinine 0.7, Est GFR ( Amer) > 60, Est GFR (Non- Af Amer) > 60, Random Glucose 271 H, Calcium 9.6, Total Bilirubin 0.2, AST 18, ALT 10, Alkaline Phosphatase 100, Total Protein 7.1, Albumin 3.8, Globulin 3.3, Albumin/Globulin Ratio 1.1 08/01/18 15:04: WBC 5.9, RBC 4.46, Hgb 13.0, Hct 39.4, MCV 88.3, MCH 29.1, MCHC 33.0, RDW 14.4, Plt Count 172, MPV 9.1, Neut % (Auto) 68.9 H, Lymph % (Auto) 26.2, [place] % (Auto) 4.2, Eos % (Auto) 0.5 L, Baso % (Auto) 0.2, Lymph # (Auto) 1.6, [place] # (Auto) 0.3, Eos # (Auto) 0.0, Baso # (Auto) 0.01, Absolute Neuts (auto) 4.07 Vital Signs Temp Pulse Pulse Resp BP Pulse Ox 08/02/18 08:15 86 132/81 08/02/18 08:14 132/81 08/02/18 07:00 98.1 F 86 20 132/81 08/01/18 22:17 91 H 18 08/01/18 17:30 78 18 148/88 98 08/01/18 15:00 88 18 148/76 99 08/01/18 12:47 98.0 F 105 H 16 145/89 96 Patient denied ever being abused - Diagnosis (1) Schizoaffective disorder Current Visit: No Status: Chronic Priority: High - Final Diagnosis (DSM 5) Condition upon Discharge: STABLE Disposition: HOME/ ROUTINE Prescriptions/Medication Reconciliation: ARIPiprazole [Abilify] 10 mg PO AMHS #30 tab Atenolol [Tenormin] 25 mg PO DAILY #14 tab Atorvastatin [Lipitor] 80 mg PO DIN #14 tab Benztropine [Cogentin] 1 mg PO DAILY #14 tab clonazePAM [Klonopin] 1 mg PO AMHS #30 tab Divalproex [Depakote ER(ONCE DAILY)] 1,500 mg PO HS #45 ter Docusate [Colace] 100 mg PO BID #28 cap Fenofibrate [Tricor] 145 mg PO DAILY #14 tab Furosemide [Lasix] 20 mg PO DAILY #14 tab Insulin Detemir [Levemir] 45 unit SC HS #1 unit Insulin Lispro [humALOG] 12 units SC AC #1 ml Lidocaine 5% [Lidoderm] 1 ea TD DAILY #14 patch Lisinopril [Zestril] 10 mg PO DAILY #14 tab Mupirocin 2% Ointment [Bactroban Ointment] 1 10 TOP BID #1 tube Pregabalin [Lyrica] 25 mg PO BID #30 cap Sennosides A and B [Senokot Tab] 8.6 mg PO DAILY #14 tab - Smoking Cessation Smoking Cessation Medication prescribed: No Reason for not providing: denied smoking - Antipsychotic Medications Pt discharged on 2 or more routine antipsychotic medications: No
--- NOTE | 2018-08-17 01:44 | PN ---
DATE: 08/15/2018 SUBJECTIVE: The patient is in psychiatry floor. She seems doing well. She is better. No chest pain. No shortness of breath. No other complaints. PHYSICAL EXAMINATION: GENERAL: Temperature 98, heart rate 76, blood pressure 118/80, respirations 17. HEAD AND NECK: Normal. No JVD. No thyromegaly. CHEST: Clear bilateral. CARDIAC: First sound and second sound normal. ABDOMEN: Soft, nontender. EXTREMITIES: No edema. NEUROLOGICAL: Normal. IMPRESSION AND PLAN: 1. Hypertension. The patient's blood pressure was decreased from 20 to 10 mg Zestril. Continue atenolol 25 mg daily. 2. Insulin-dependent diabetes. Continue Levemir and Humalog as prescribed. 3. Hypercholesterolemia. Continue Lipitor. 4. Bipolar disorder, depression. Continue Depakote, Cogentin, Klonopin and will follow up with the psychiatrist. The patient is off Elavil for now. 5. Chronic back pain, osteoarthritis. The patient will get Ultracet for a few days. Will follow up in the office. We will continue current therapy. Continue all other medications as psychiatric consultation. Continue Lasix 20 mg daily. Leg edema. Follow up in the office within a week. Prescription was given to the patient. Bactroban also was ordered for her left knee abrasions. Also the patient is getting Abilify 10 mg b.i.d., Cogentin 1 mg p.o. daily, Depakote 1500 mg nightly, Tricor 145 mg p.o. daily, Lasix 20 mg daily, Levemir 45 units subcutaneously, and Humalog 12 units before meals, lisinopril or Zestril 10 mg daily, baby aspirin 81 mg daily. See the patient in a week. Zana Mancera MD
== END 2018-08-15 16:46 | disposition home or self-care (01) | DRG 885 ==
LOC: ED 12:16 → ERH 18:53 → PSYC 20:13
PROVIDERS: ADMIT Psychiatry & Neurology Psychiatry; ATTEND Psychiatry & Neurology Psychiatry
PROC: GZ3ZZZZ Medication Management (ICD-10-PCS; principal; 2018-08-01)
DX: F25.0 Schizoaffective disorder, bipolar type (principal); I10 Essential (primary) hypertension; Z91.14 Patient's other noncompliance with medication regimen; G47.33 Obstructive sleep apnea (adult) (pediatric); E66.01 Morbid (severe) obesity due to excess calories; G89.29 Other chronic pain; E78.00 Pure hypercholesterolemia, unspecified; E11.65 Type 2 diabetes mellitus with hyperglycemia; M46.1 Sacroiliitis, not elsewhere classified; M47.817 Spondylosis without myelopathy or radiculopathy, lumbosacral region; M47.818 Spondylosis without myelopathy or radiculopathy, sacral and sacrococcygeal region; K59.09 Other constipation; F41.9 Anxiety disorder, unspecified; Z79.4 Long term (current) use of insulin; E78.1 Pure hyperglyceridemia; S80.212A Abrasion, left knee, initial encounter; W01.0XXA Fall on same level from slipping, tripping and stumbling without subsequent striking against object, initial encounter; Y92.9 Unspecified place or not applicable